=== PATIENT | female | born 1950 | race Caucasian/White ===

== ENCOUNTER 2017-11-18 10:26 | Outpatient (POV) | payer MEDICARE, MEDICAID, SELFPAY | END 2017-11-18 11:23 | disposition home or self-care (01) | PROVIDERS: Visit Provider Podiatrist | DX: L60.1 Onycholysis (principal); M79.672 Pain in left foot; L84 Corns and callosities | CPT/HCPCS: 11056; 99212; G0127 ==

== ENCOUNTER → 2018-02-24 14:21 | Outpatient (CLI) | payer MEDICARE, MEDICAID, SELFPAY ==
--- NOTE | 2018-02-24 14:25 | US_ITS ---
US Arterial Ankle Brachial Ind ITS.REASON: skin changes, PVD, weak pulses, pain, right-sided pain and claudication ORDERING PHYSICIAN: Rachna Machuca DPM PATIENT AGE: 68 years TECHNIQUE: Segmental pressures obtained of both right and left leg. These are compared to brachial blood pressure to yield index at each level sampled including summary KATELYN. The data sheets from the procedure are available in PACS FINDINGS Rest study only performed today No prior studies available for comparison. Blood pressures reported are in millimeters mercury. RIGHT LEG KATELYN = 1.2. Right TBI 1.0 Brachial BP: 124 Thigh BP: 141 Calf BP: 149 Ankle PT: 156 Ankle DP : 166 Digit =130 LEFT LEG KATELYN = 1.1 Left TBI 0.9 Brachial BPD: 135 Thigh BP: 145 Calf BP: 153 Ankle PT:153 Ankle DP: 160 Digit = 126 Pulses and waveforms: Normal IMPRESSION: The ABIs as reported above are within normal limits. Waveforms and pulses are also unremarkable.
== END ==
PROVIDERS: PCP Internal Medicine Adolescent Medicine; Visit Provider Podiatrist
DX: R23.9 Unspecified skin changes (principal); I73.9 Peripheral vascular disease, unspecified
CPT/HCPCS: 93922

== ENCOUNTER → 2018-04-07 14:18 | Outpatient (POV) | payer MEDICARE, MEDICAID, SELFPAY ==
[2018-04-07 14:57] LABS: Microscopic, Urine URINE MICROSCOPIC (MICROSCOPIC)
[2018-04-07 15:12] LABS: Basophils # 0.1 K/mm3 (0-0.2); Basophils % 0.8 % (0.1-2.0); Eosinophils # 0.1 K/mm3 (0.0-0.4); Eosinophils % 1.4 % (0.1-12.0); Lymphocytes # 1.9 K/mm3 (0.7-4.5); Lymphocytes % 17.7 K/mm3 (10-50); Mean Corpuscular HGB Conc 32.1 g/dL (31.8-35.4); Mean Corpuscular Hemoglobin 28.3 pg (27.0-31.2); Mean Corpuscular Volume 88.2 fl (81-99); Mean Platelet Volume 7.8 fl (7.4-10.4); Monocytes # 0.7 K/mm3 (0.1-1.0); Monocytes % 6.8 % (1.7-9.3); Neutrophils # 7.7 K/mm3 (1.8-7.8); Neutrophils % 73.3 % (37.0-80.0); Platelet Count 352 K/mm3 (142-424); Red Blood Count 3.51 M/mm3 (4.20-5.40); Red Cell Distribution Width 14.5 % (11.5-17.5); White Blood Count 10.5 K/mm3 (4.8-10.8)
[2018-04-07 15:30] LABS: Appearance,Urine CLEAR (Clear); Bilirubin,Urine Negative (Negative); Blood, Urine 1+ (Negative); Color,Urine YELLOW (Yellow); Glucose,Urine (UA) Negative (Negative); Ketones,Urine Negative (Negative); Leukocyte Esterase,Urine Negative (Negative); Nitrate,Urine Negative (Negative); PH,Urine 5.5 (5.0-8.5); Protein,Urine 3+ (Negative); Specific Gravity, Urine 1.025 (1.005-1.030); Urobilinogen,Urine 0.2 EU/dl (0.2)
[2018-04-07 16:26] LABS: Bacteria,Urine Trace /lpf; Squamous Epithelial Cell,Urine Occasional #/hpf (0-5)
[2018-04-07 16:44] LABS: Albumin Level 3.6 gm/dL (3.4-5.0); Anion Gap 6.4 mEq/L (5-15); Blood Urea Nitrogen 37 mg/dL (7-18); Calcium 9.4 mg/dL (8.5-10.1); Carbon Dioxide 26 mmol/L (21.0-32.0); Chloride 105 mmol/L (98-107); Creatinine,Serum 1.92 mg/dL (0.55-1.02); Estimated Glomerular Filt Rate 26 ml/min (>60); GFR (African American) 31 ML/MIN (>60); Glucose 92 mg/dL (74-106); Phosphorous 4.9 mg/dL (2.4-4.9); Potassium 4.4 mmoL/L (3.5-5.1); Sodium 133 mmol/L (136-145)
[2018-04-07 18:46] LABS: Creatinine,Urine Random 59 mg/dL (20-320)
[2018-04-07 19:01] LABS: Total Protein,Urine Random 337.3 mg/dL (0.0-11.9)
== END ==
PROVIDERS: PCP Internal Medicine Adolescent Medicine; Visit Provider Internal Medicine Nephrology
DX: N18.3 Chronic kidney disease, stage 3 (moderate) (principal)
CPT/HCPCS: 36415; 80069; 81001; 82570; 84155; 85025

== ENCOUNTER → 2018-05-07 09:38 | Outpatient (CLI) | payer MEDICARE, MEDICAID, SELFPAY ==
--- NOTE | 2018-05-07 09:40 | MM_ITS ---
MM Dig screening mamm BI w/CAD CAD Screening ORDERING PHYSICIAN : Liliana Gar PATIENT AGE: 68 years GENDER: Female HISTORY. No hormones. No new complaints. Family history. Mother with breast cancer in her 70s. & Sister at unknown age COMPARISON: Previous mammograms: September outside study.: TECHNIQUE: Standard CC and MLO images were obtained. R2 CAD reviewed. FINDINGS: Moderately dense asymmetric breast, moderate residual glandular elements bilaterally RIGHT BREAST:Fairly Stable nodular density at the medial right breast with minimal calcification. Likely small fibroadenoma 6 mm size. X 10 mm height present since 2009 Metallic marker at deep central right breast from previous percutaneous biopsy elsewhere . LEFT BREAST:Somewhat asymmetric dense tissue at the lateral retroareolar region. This appears stable since prior studies with no significant new findings IMPRESSION: ......... No significant change. . Follow-up in one year recommended BI-RADS Category: 2 Benign Finding(s) RECOMMENDED FOLLOW-UP: 1YR - 1 YEAR FOLLOW-UP (A letter has been sent to the patient regarding results of the study.)
--- NOTE | 2018-05-07 09:41 | US_ITS ---
US breast RT complete INDICATION: Palpable abnormality in the presternal region ORDERING PHYSICIAN: Liliana Gar PATIENT AGE: 68 years COMPARISON: None TECHNIQUE: Standard images performed along with axilla FINDINGS: There is an 8 x 7 mm subcutaneous hypoechoic nodule in the presternal region. This is well-circumscribed but does contain low-level echoes with some enhanced through transmission of sound. No other significant anomalies evident. IMPRESSION: 8 x 7 mm hypoechoic subcutaneous lesion in the floor o'clock area of the right breast toward the sternum corresponding to the palpable abnormality probably benign. BI-RADS Category: 3 Benign Finding Short Term Follow-up RECOMMENDED FOLLOW-UP: 6M - 6 MONTH FOLLOW-UP (A letter has been sent to the patient regarding results of the study.)
== END ==
PROVIDERS: PCP Internal Medicine Adolescent Medicine; Visit Provider Nurse Practitioner Family
DX: Z12.31 Encounter for screening mammogram for malignant neoplasm of breast (principal); N60.01 Solitary cyst of right breast
CPT/HCPCS: 76641; 77067

== ENCOUNTER → 2018-11-03 08:44 | Outpatient (CLI) | payer MEDICARE, MEDICAID, SELFPAY ==
[2018-11-03 08:48] LABS: Microscopic, Urine URINE MICROSCOPIC (MICROSCOPIC)
[2018-11-03 09:12] LABS: Basophils # 0.1 K/mm3 (0-0.2); Eosinophils # 0.2 K/mm3 (0.0-0.4); Eosinophils % 1.9 % (0.1-12.0); Hematocrit 30.3 % (37.0-47.0); Hemoglobin 9.3 g/dL (12.2-16.2); Lymphocytes # 1.6 K/mm3 (0.7-4.5); Lymphocytes % 18.7 % (10-50); Mean Corpuscular HGB Conc 30.8 g/dL (31.8-35.4); Mean Corpuscular Hemoglobin 27.2 pg (27.0-31.2); Mean Corpuscular Volume 88.2 fl (81-99); Monocytes # 0.4 K/mm3 (0.1-1.0); Monocytes % 4.9 % (1.7-9.3); Neutrophils # 6.5 K/mm3 (1.8-7.8); Neutrophils % 73.5 % (37.0-80.0); Platelet Count 377 K/mm3 (142-424); Red Blood Count 3.44 M/mm3 (4.20-5.40); Red Cell Distribution Width 14.8 % (11.5-17.5); White Blood Count 8.8 K/mm3 (4.8-10.8)
[2018-11-03 09:49] LABS: Appearance,Urine CLOUDY (Clear); Bilirubin,Urine Negative (Negative); Blood, Urine 2+ (Negative); Color,Urine YELLOW (Yellow); Glucose,Urine (UA) Negative (Negative); Ketones,Urine Negative (Negative); Leukocyte Esterase,Urine 3+ (Negative); Nitrate,Urine Negative (Negative); PH,Urine 5.5 (5.0-8.5); Protein,Urine 2+ (Negative); Specific Gravity, Urine >= 1.030 (1.005-1.030); Urobilinogen,Urine 0.2 EU/dl (0.2)
[2018-11-03 10:08] LABS: Creatinine,Urine Random 147 mg/dL (20-320)
[2018-11-03 10:14] LABS: Total Protein,Urine Random 257.7 mg/dL (0.0-11.9)
[2018-11-03 10:31] LABS: Bacteria,Urine 4+ /lpf; WBC,Urine TNTC #/hpf (0-3)
[2018-11-03 11:06] LABS: Albumin Level 3.6 gm/dL (3.4-5.0); Anion Gap 20.9 mEq/L (5-15); Blood Urea Nitrogen 29 mg/dL (7-18); Calcium 8.9 mg/dL (8.5-10.1); Carbon Dioxide 19 mmol/L (21.0-32.0); Chloride 106 mmol/L (98-107); Creatinine,Serum 2.29 mg/dL (0.55-1.02); Estimated Glomerular Filt Rate 21 ml/min (>60); GFR (African American) 26 ML/MIN (>60); Glucose 90 mg/dL (74-106); Phosphorous 4.4 mg/dL (2.4-4.9); Potassium 3.9 mmoL/L (3.5-5.1); Sodium 142 mmol/L (136-145)
== END ==
PROVIDERS: Visit Provider Internal Medicine Nephrology
DX: N18.3 Chronic kidney disease, stage 3 (moderate) (principal); R82.90 Unspecified abnormal findings in urine
CPT/HCPCS: 36415; 80069; 81001; 82570; 84155; 85025; 87077; 87086; 87088; 87186

== ENCOUNTER → 2018-12-18 10:57 | Outpatient (CLI) | payer MEDICARE, MEDICAID, SELFPAY ==
[2018-12-18 11:31] LABS: Basophils # 0.1 K/mm3 (0-0.2); Basophils % 1.1 % (0.1-2.0); Eosinophils # 0.2 K/mm3 (0.0-0.4); Eosinophils % 2.7 % (0.1-12.0); Hematocrit 35.1 % (37.0-47.0); Hemoglobin 10.4 g/dL (12.2-16.2); Lymphocytes # 1.2 K/mm3 (0.7-4.5); Lymphocytes % 16.9 % (10-50); Mean Corpuscular HGB Conc 29.6 g/dL (31.8-35.4); Mean Corpuscular Hemoglobin 26.4 pg (27.0-31.2); Mean Platelet Volume 7.2 fl (7.4-10.4); Monocytes # 0.5 K/mm3 (0.1-1.0); Monocytes % 6.5 % (1.7-9.3); Neutrophils # 5.2 K/mm3 (1.8-7.8); Neutrophils % 72.9 % (37.0-80.0); Platelet Count 404 K/mm3 (142-424); Red Blood Count 3.94 M/mm3 (4.20-5.40); White Blood Count 7.2 K/mm3 (4.8-10.8)
[2018-12-18 11:56] LABS: Alanine Aminotransferase 31 U/L (12-78); Albumin Level 3.6 gm/dL (3.4-5.0); Albumin/Globulin Ratio 1.1 (1.1-1.8); Alkaline Phosphatase 186 U/L (46-116); Anion Gap 17.6 mEq/L (5-15); Aspartate Amino Transferase 25 U/L (15-37); Bilirubin,Total 0.3 mg/dL (0.2-1.0); Blood Urea Nitrogen 48 mg/dL (7-18); Calcium 8.8 mg/dL (8.5-10.1); Carbon Dioxide 23 mmol/L (21.0-32.0); Chloride 102 mmol/L (98-107); Creatinine,Serum 2.19 mg/dL (0.55-1.02); Estimated Glomerular Filt Rate 22 ml/min (>60); GFR (African American) 27 ML/MIN (>60); Globulin 3.2 gm/dl (1.3-3.2); Glucose 103 mg/dL (74-106); Potassium 4.6 mmoL/L (3.5-5.1); Sodium 138 mmol/L (136-145); Total Protein,Serum 6.8 gm/dL (6.4-8.2)
== END ==
PROVIDERS: Visit Provider Internal Medicine Rheumatology
DX: M32.10 Systemic lupus erythematosus, organ or system involvement unspecified (principal)
CPT/HCPCS: 36415; 80053; 85025

== ENCOUNTER → 2019-02-16 10:04 | Outpatient (CLI) | payer MEDICARE, MEDICAID, SELFPAY ==
--- NOTE | 2019-02-16 10:20 | US_ITS ---
US breast RT complete Ordering Physician: Winston Webster MD Patient Age: 69 years: Female HISTORY: ITS.REASON: ABN MAMM follow up derrmal or subcutaneous nodule/ cc TECHNIQUE. Ultrasound entire right breast including axillary survey ========= : RIGHT BREAST ULTRASOUND: We again see a debris-filled cyst/semisolid cyst subcutaneous hypoechoic nodule with internal echoes which corresponds to the palpable area right breast 4 o'clock position.. Some of these internal echoes may be reverberation artifact echoes given its extremely superficial roughly 1 mm beneath skin surface. However there is Good visualization of back wall enhancement & partial through transmission which is supportive of a debris-filled cyst This measures 8 mm length x 8 mm transverse x 5.1 mm mm AP on my measurements. It is slightly pearson, slightly plumper, than the previous ultrasound studies on visual inspection and measures incrementally larger.. I would note there is additional standoff gel which with slight improved ultrasound visualization & detail] differences in technique may yield a slightly larger measurements.. Of this is benign-appearing feature in by far most likely this is a sebaceous cyst like structure given that appears to be related to the dermal layer Suggest follow-up ultrasound along with bilateral mammogram 6 months to resume annual scheduled . If should it enlarge clinically, the should be fairly easy to excised clinically (Added note.: I now prior mammograms available from May 2018 as well as back to 2009 nodule appears to correspond showed in this area was likely present at that time. Further confirming its benign nature) No additional solid or cystic areas are seen within elsewhere within the breast itself Survey of the axilla demonstrates 2 benign appearing axillary lymph nodes. IMPRESSION: 1. Today's right breast ultrasound again reveals dermal/subcutaneous lesion; which is a semisolid or debris-filled cyst which corresponds with palpable area at 4 o'clock position o'clock area of the right..8 x 8mm x 5 mm Although appears & measures incrementally larger today than previous 2018 ultrasound,, I suspect this is due mainly due to differences of technique today.. Strongly favor benign entity most likely a cyst or sebaceous cyst type feature but would suggest follow-up ultrasound along with the patient's annual mammogram. (Added note.: I now see prior mammograms available from May 2018, 2016 & dating back to 2009 which showed an area which likely corresponds on prior mammograms-further supporting its long-standing benign nature) BI-RADS Category: 3 Benign Finding Short Term Follow-up RECOMMENDED FOLLOW-UP: 6M -8MONTH FOLLOW-UP Bilateral screening mammogram to resume annual schedule, along with follow-up right breast ultrasound at that time suggested (A letter has been sent to the patient regarding results of the study.)
--- NOTE | 2019-02-16 10:21 | XR_ITS ---
DEXA SCAN.-BONE DENSITY STUDY HIPS AND LUMBAR SPINE HISTORY: Postmenopausal female. History of lupus? History of prior fracture. Takes calcium, levothyroxin. Vitamin D. TECHNIQUE: DEXA scan hip and lumbar spine The most complete data summary and color graphic presentation of the today's ( and any prior ) DEXA findings are available in PACS. Definition and treatment guidelines included. comparison graph & calculations prior study not included despite request to the technologist COMPARISON: September 2015 DEXA LUMBAR SPINE: Overall osteopenia L3 vertebral body demonstrates the lowest T score -1.8 with BMD0.987 g/cm sq Also note L1 vertebra T score -1.6 with BMD 0.937 Today's Overall mean lumbar L1-L4 T score -1.2 with BMD1.032 g/cm sq . 2015 prior DEXA the mean L1-L4 T score -0.5 with BMD was1.125g/cm sq comparison graph & calculations prior study not included despite request to the technologist. However the previous L1-L4 age-matched Z score was +0.6 and is now -0.1 would does suggest slightly more pronounced bone loss than would be anticipated over this time. ===== HIPS: Femoral neck density is best predictor of hip fracture risk . Right femoral neck demonstrates the lowest T score -1.9 with BMD0.769 g/cm sq . Left femoral neck T score = -1.6 with BMD 0.811 Averaging all region included yields today's Hip Mean T score -1.2 with BMD0.853 g/cm sq . Prior 2014 DEXA T score -0.9 with mean BMD0.899 g/cm sq Previous age-matched Z score into 2014 = 0.0; where as today a Z score = -0.2.... Thus Basically expected only very slightly slightly greater bone loss than would be anticipated over this 3 year period IMPRESSION 1. LUMBAR SPINE: Overall lumbar T score = -1.2 reflecting overall mild osteopenia lumbar spine . Most evident osteopenia at L3 vertebra T score = -1.8 ... Also note L1 vertebral w/ T score -1.6. 2. HIPS: Overall hip density reflects mild Osteopenia. Overall hip T score -1.2. More evident Osteopenia Was Seen at femoral necks bilaterally:. Right femoral neck T score = -1.9;. Left femoral neck T score = -1.6 WHO criteria for post-menopausal, Women: Normal: T-score at or above -1 SD Osteopenia: T-score between -1 and -2.5 SD Osteoporosis: T-score at or below -2.5 SD
--- NOTE | 2019-02-16 11:41 | US_ITS ---
. US Arterial Ankle Brachial Ind HISTORY: Bilateral Leg rest pain . Hypertension. Hyperlipidemia. Claudication. Skin color changes. diabetic previous angioplasty smoker previously hypertension. TECHNIQUE: Segmental pressures obtained of both right and left leg. These are compared to brachial blood pressure to yield index at each level sampled including summary KATELYN. The data sheets from the procedure are available in PACS FINDINGS Rest study only performed today No prior studies available for comparison. Blood pressures reported are in millimeters mercury. ========= RIGHT LEG KATELYN = 1.1. Right TBI = 0.8 Brachial BP: 158 Thigh BP: 144, index 0.91 Calf BP: BP 171 with index 1.08 Ankle PT: BP 174 with index 1.1 Ankle DP : BP 180 with index 1.14 Digit =BP 119 with thin axial 0.75 ========= LEFT LEG KATELYN = 1.1 Left TBI = 0.7 Brachial BPD: 150 Thigh BP: BP 145 with the next 0.92 Calf BP: BP 173 with index 1.09 Ankle PT:BP 175 with index 1.11 Ankle DP: BP 170 over the next 1.08 Digit = BP 103 with index 0.65 Pulses and waveforms: Normal bilaterally. WaveformsVery slightly more robust on left leg than right ...... IMPRESSION:......... Pulses & waveforms within normal limits. RIGHT LEG KATELYN = 1.1. Right TBI = 0.8 LEFT LEG KATELYN = 1.1 Left TBI = 0.7
== END ==
PROVIDERS: PCP Internal Medicine Adolescent Medicine; Visit Provider Internal Medicine Adolescent Medicine
DX: Z13.820 Encounter for screening for osteoporosis (principal); Z78.0 Asymptomatic menopausal state; R92.8 Other abnormal and inconclusive findings on diagnostic imaging of breast; R09.89 Other specified symptoms and signs involving the circulatory and respiratory systems
CPT/HCPCS: 76641; 77080; 93922

== ENCOUNTER → 2019-03-16 13:56 | Outpatient (CLI) | payer MEDICARE, MEDICAID, SELFPAY ==
[2019-03-16 14:00] LABS: Microscopic, Urine URINE MICROSCOPIC (MICROSCOPIC)
[2019-03-16 14:13] LABS: Appearance,Urine SL CLOUDY (Clear); Bilirubin,Urine Negative (Negative); Blood, Urine 1+ (Negative); Color,Urine YELLOW (Yellow); Glucose,Urine (UA) Negative (Negative); Ketones,Urine Negative (Negative); Leukocyte Esterase,Urine TRACE (Negative); Nitrate,Urine Negative (Negative); PH,Urine 5.5 (5.0-8.5); Protein,Urine 2+ (Negative); Specific Gravity, Urine 1.025 (1.005-1.030); Urobilinogen,Urine 0.2 EU/dl (0.2)
[2019-03-16 14:30] LABS: Bacteria,Urine Trace /lpf; RBC,Urine Occasional #/hpf (0-3)
[2019-03-16 14:42] LABS: Basophils # 0.1 K/mm3 (0-0.2); Basophils % 1.6 % (0.1-2.0); Eosinophils # 0.1 K/mm3 (0.0-0.4); Eosinophils % 2.2 % (0.1-12.0); Hematocrit 30.3 % (37.0-47.0); Hemoglobin 9.4 g/dL (12.2-16.2); Lymphocytes # 1.2 K/mm3 (0.7-4.5); Lymphocytes % 22.2 % (10-50); Mean Corpuscular HGB Conc 31.2 g/dL (31.8-35.4); Mean Corpuscular Volume 86.4 fl (81-99); Mean Platelet Volume 7.1 fl (7.4-10.4); Monocytes # 0.4 K/mm3 (0.1-1.0); Monocytes % 6.6 % (1.7-9.3); Neutrophils # 3.5 K/mm3 (1.8-7.8); Neutrophils % 67.4 % (37.0-80.0); Platelet Count 376 K/mm3 (142-424); Red Cell Distribution Width 14.8 % (11.5-17.5); White Blood Count 5.3 K/mm3 (4.8-10.8)
[2019-03-16 14:43] LABS: Creatinine,Urine Random 65 mg/dL (20-320); Total Protein,Urine Random 134.5 mg/dL (0.0-11.9)
[2019-03-16 15:23] LABS: Albumin Level 3.7 gm/dL (3.4-5.0); Anion Gap 17.8 mEq/L (5-15); Blood Urea Nitrogen 52 mg/dL (7-18); Carbon Dioxide 20 mmol/L (21.0-32.0); Chloride 105 mmol/L (98-107); Creatinine,Serum 2.53 mg/dL (0.55-1.02); Estimated Glomerular Filt Rate 19 ml/min (>60); GFR (African American) 23 ML/MIN (>60); Glucose 95 mg/dL (74-106); Phosphorous 4.9 mg/dL (2.4-4.9); Potassium 4.8 mmoL/L (3.5-5.1); Sodium 138 mmol/L (136-145)
== END ==
PROVIDERS: Visit Provider Internal Medicine Nephrology
DX: N18.3 Chronic kidney disease, stage 3 (moderate) (principal); R82.90 Unspecified abnormal findings in urine
CPT/HCPCS: 36415; 80069; 81001; 82570; 84155; 85025; 87086

== ENCOUNTER → 2019-03-16 14:15 | Outpatient (POV) | payer MEDICARE, MEDICAID, SELFPAY | PROVIDERS: Visit Provider Internal Medicine Nephrology | DX: Z00.00 Encounter for general adult medical examination without abnormal findings (principal) ==

== ENCOUNTER → 2019-09-01 08:44 | Outpatient (POV) | payer MEDICARE, MEDICAID, SELFPAY ==
[2019-09-01 10:38] LABS: Microscopic, Urine URINE MICROSCOPIC (MICROSCOPIC)
[2019-09-01 11:17] LABS: Basophils # 0.1 K/mm3 (0-0.2); Eosinophils # 0.1 K/mm3 (0.0-0.4); Eosinophils % 1.6 % (0.1-12.0); Hematocrit 30.7 % (37.0-47.0); Hemoglobin 9.1 g/dL (12.2-16.2); Lymphocytes # 0.8 K/mm3 (0.7-4.5); Lymphocytes % 12.9 % (10-50); Mean Corpuscular HGB Conc 29.6 g/dL (31.8-35.4); Mean Corpuscular Hemoglobin 26.4 pg (27.0-31.2); Mean Corpuscular Volume 89.1 fl (81-99); Mean Platelet Volume 7.3 fl (7.4-10.4); Monocytes # 0.3 K/mm3 (0.1-1.0); Monocytes % 4.6 % (1.7-9.3); Neutrophils # 4.6 K/mm3 (1.8-7.8); Platelet Count 362 K/mm3 (142-424); Red Blood Count 3.44 M/mm3 (4.20-5.40); Red Cell Distribution Width 15.4 % (11.5-17.5); White Blood Count 5.8 K/mm3 (4.8-10.8)
[2019-09-01 11:19] LABS: Appearance,Urine CLOUDY (Clear); Bilirubin,Urine Negative (Negative); Blood, Urine 1+ (Negative); Color,Urine YELLOW (Yellow); Glucose,Urine (UA) Negative (Negative); Ketones,Urine Negative (Negative); Leukocyte Esterase,Urine 2+ (Negative); Nitrate,Urine Negative (Negative); PH,Urine 5.5 (5.0-8.5); Protein,Urine 2+ (Negative); Specific Gravity, Urine >= 1.030 (1.005-1.030); Urobilinogen,Urine 0.2 EU/dl (0.2)
[2019-09-01 11:35] LABS: Bacteria,Urine 3+ /lpf; WBC,Urine 50-100 #/hpf (0-3)
[2019-09-01 11:36] LABS: Albumin Level 3.6 gm/dL (3.4-5.0); Anion Gap 18.2 mEq/L (5-15); Blood Urea Nitrogen 32 mg/dL (7-18); Calcium 9.4 mg/dL (8.5-10.1); Carbon Dioxide 21 mmol/L (21.0-32.0); Chloride 106 mmol/L (98-107); Creatinine,Serum 2.19 mg/dL (0.55-1.02); Estimated Glomerular Filt Rate 22 ml/min (>60); GFR (African American) 27 ML/MIN (>60); Glucose 98 mg/dL (74-106); Potassium 4.2 mmoL/L (3.5-5.1); Sodium 141 mmol/L (136-145)
[2019-09-01 14:14] LABS: Creatinine,Urine Random 162 mg/dL (20-320)
[2019-09-02 16:46] LABS: Anti-DNA (DS) Ab Qn <1 IU/mL (0-9); Complement C3 153 mg/dL (82-167); Parathyroid Hormone Intact 36 pg/mL (15-65); Vitamin D 25 Hydroxy 42.4 ng/mL (30.0-100.0)
== END ==
PROVIDERS: Visit Provider Dermatology
DX: M32.9 Systemic lupus erythematosus, unspecified (principal); R82.90 Unspecified abnormal findings in urine
CPT/HCPCS: 36415; 80069; 81001; 82570; 82652; 83970; 84155; 85025; 86161; 86225; 87086; 87088; 87186

== ENCOUNTER → 2019-09-02 13:41 | Outpatient (POV) | payer MEDICARE, MEDICAID, SELFPAY | PROVIDERS: Visit Provider Internal Medicine Nephrology | DX: Z00.00 Encounter for general adult medical examination without abnormal findings (principal) ==

== ENCOUNTER → 2019-09-09 09:25 | Outpatient (CLI) | payer MEDICARE, MEDICAID, SELFPAY ==
[2019-09-09 10:06] LABS: Basophils # 0.1 K/mm3 (0-0.2); Eosinophils # 0.2 K/mm3 (0.0-0.4); Eosinophils % 2.7 % (0.1-12.0); Hematocrit 27.9 % (37.0-47.0); Hemoglobin 8.2 g/dL (12.2-16.2); Lymphocytes # 0.7 K/mm3 (0.7-4.5); Lymphocytes % 10.3 % (10-50); Mean Corpuscular HGB Conc 29.5 g/dL (31.8-35.4); Mean Corpuscular Hemoglobin 26.7 pg (27.0-31.2); Mean Corpuscular Volume 90.5 fl (81-99); Mean Platelet Volume 7.4 fl (7.4-10.4); Monocytes # 0.3 K/mm3 (0.1-1.0); Monocytes % 4.6 % (1.7-9.3); Neutrophils # 5.7 K/mm3 (1.8-7.8); Neutrophils % 81.5 % (37.0-80.0); Platelet Count 344 K/mm3 (142-424); Red Blood Count 3.09 M/mm3 (4.20-5.40); Red Cell Distribution Width 15.4 % (11.5-17.5)
[2019-09-09 11:12] LABS: Albumin Level 3.1 gm/dL (3.4-5.0); Anion Gap 17.7 mEq/L (5-15); Blood Urea Nitrogen 32 mg/dL (7-18); Calcium 8.3 mg/dL (8.5-10.1); Carbon Dioxide 19 mmol/L (21.0-32.0); Chloride 111 mmol/L (98-107); Creatinine,Serum 2.14 mg/dL (0.55-1.02); Estimated Glomerular Filt Rate 23 ml/min (>60); GFR (African American) 28 ML/MIN (>60); Glucose 100 mg/dL (74-106); Phosphorous 4.5 mg/dL (2.4-4.9); Potassium 3.7 mmoL/L (3.5-5.1); Sodium 144 mmol/L (136-145)
== END ==
PROVIDERS: Visit Provider Internal Medicine Nephrology
DX: N18.3 Chronic kidney disease, stage 3 (moderate) (principal)
CPT/HCPCS: 36415; 80069; 85025

== ENCOUNTER → 2019-12-14 08:25 | Outpatient (CLI) | payer MEDICARE, MEDICAID, SELFPAY ==
[2019-12-14 09:17] LABS: Basophils % 0.8 % (0.1-2.0); Eosinophils # 0.2 K/mm3 (0.0-0.4); Eosinophils % 4.2 % (0.1-12.0); Hematocrit 29.7 % (37.0-47.0); Hemoglobin 9.1 g/dL (12.2-16.2); Lymphocytes # 0.7 K/mm3 (0.7-4.5); Lymphocytes % 12.2 % (10-50); Mean Corpuscular HGB Conc 30.6 g/dL (31.8-35.4); Mean Corpuscular Hemoglobin 26.4 pg (27.0-31.2); Mean Platelet Volume 7.4 fl (7.4-10.4); Monocytes # 0.3 K/mm3 (0.1-1.0); Monocytes % 5.9 % (1.7-9.3); Neutrophils # 4.3 K/mm3 (1.8-7.8); Neutrophils % 76.9 % (37.0-80.0); Platelet Count 335 K/mm3 (142-424); Red Blood Count 3.45 M/mm3 (4.20-5.40); Red Cell Distribution Width 14.9 % (11.5-17.5); White Blood Count 5.6 K/mm3 (4.8-10.8)
[2019-12-14 10:03] LABS: Albumin Level 3.3 gm/dL (3.4-5.0); Anion Gap 15.7 mEq/L (5-15); Blood Urea Nitrogen 32 mg/dL (7-18); Calcium 8.5 mg/dL (8.5-10.1); Carbon Dioxide 22 mmol/L (21.0-32.0); Chloride 107 mmol/L (98-107); Creatinine,Serum 2.13 mg/dL (0.55-1.02); Estimated Glomerular Filt Rate 23 ml/min (>60); GFR (African American) 28 ML/MIN (>60); Glucose 96 mg/dL (74-106); Phosphorous 4.4 mg/dL (2.4-4.9); Potassium 3.7 mmoL/L (3.5-5.1); Sodium 141 mmol/L (136-145)
[2019-12-14 10:42] LABS: Creatinine,Urine Random 89 mg/dL (20-320); Total Protein,Urine Random 357.9 mg/dL (0.0-11.9)
[2019-12-16 07:39] LABS: Complement C3 181 mg/dL (82-167)
== END ==
PROVIDERS: Visit Provider Internal Medicine Nephrology
DX: N18.3 Chronic kidney disease, stage 3 (moderate) (principal)
CPT/HCPCS: 36415; 80069; 82570; 84155; 85025; 86161

== ENCOUNTER → 2019-12-30 12:53 | Outpatient (POV) | payer MEDICARE, MEDICAID, SELFPAY | PROVIDERS: Visit Provider Internal Medicine Nephrology | DX: Z00.00 Encounter for general adult medical examination without abnormal findings (principal) ==

== ENCOUNTER → 2020-03-29 12:00 | Outpatient (CLI) | payer MEDICARE, MEDICAID, SELFPAY ==
[2020-03-29 14:22] LABS: Basophils # 0.1 K/mm3 (0-0.2); Basophils % 1.2 % (0.1-2.0); Eosinophils # 0.2 K/mm3 (0.0-0.4); Eosinophils % 2.3 % (0.1-12.0); Hematocrit 31.4 % (37.0-47.0); Hemoglobin 9.7 g/dL (12.2-16.2); Lymphocytes # 0.7 K/mm3 (0.7-4.5); Lymphocytes % 7.6 % (10-50); Mean Corpuscular HGB Conc 30.8 g/dL (31.8-35.4); Mean Corpuscular Hemoglobin 25.7 pg (27.0-31.2); Mean Corpuscular Volume 83.5 fl (81-99); Mean Platelet Volume 8.7 fl (7.4-10.4); Monocytes # 0.4 K/mm3 (0.1-1.0); Monocytes % 4.4 % (1.7-9.3); Neutrophils # 8.3 K/mm3 (1.8-7.8); Neutrophils % 84.4 % (37.0-80.0); Platelet Count 576 K/mm3 (142-424); Red Blood Count 3.77 M/mm3 (4.20-5.40); Red Cell Distribution Width 14.7 % (11.5-17.5); White Blood Count 9.8 K/mm3 (4.8-10.8)
[2020-03-29 15:54] LABS: Chloride 109 mmol/L (98-107); Sodium 139 mmol/L (136-145)
[2020-03-29 15:57] LABS: Alanine Aminotransferase 11 U/L (12-78); Albumin Level 3.9 g/dl (3.5-5.0); Albumin/Globulin Ratio 1.4 (1.1-1.8); Alkaline Phosphatase 298 U/L (38-126); Anion Gap 27.7 mEq/L (5-15); Aspartate Amino Transferase 21 U/L (14-36); Bilirubin,Total 0.3 mg/dl (0.2-1.3); Calcium 10.2 mg/dl (8.4-10.2); Estimated Glomerular Filt Rate 6 ml/min (>60); GFR (African American) 8 ML/MIN (>60); Globulin 2.8 g/dL (1.3-3.2); Glucose 76 mg/dl (74-100); Total Protein,Serum 6.7 g/dl (6.3-8.2)
[2020-03-29 16:05] LABS: Potassium 6.7 mmoL/L (3.5-5.1)
[2020-03-29 16:06] LABS: Blood Urea Nitrogen 108 mg/dl (7-17); Carbon Dioxide 9 mmol/L (22.0-30.0)
[2020-04-01 09:18] LABS: Vitamin B12 1242 pg/mL (232-1245); Vitamin D 25 Hydroxy 65.4 ng/mL (30.0-100.0)
== END ==
LOC: LAB.CARL 12:01 → LAB.DROPOF 03-30 07:28 → LAB.CARL 03-30 09:02
PROVIDERS: Visit Provider Internal Medicine Adolescent Medicine
DX: M32.14 Glomerular disease in systemic lupus erythematosus (principal); Z79.899 Other long term (current) drug therapy
CPT/HCPCS: 80053; 82607; 82652; 84443; 85025

== ENCOUNTER 2020-03-29 13:10 | Emergency (ER) | payer MEDICARE, MEDICAID, SELFPAY ==
[2020-03-29] VITALS (9 sets, daily range): BP systolic 75–143; BP diastolic 52–85; PULSE 87–96; RESP 20–24; TEMP 36.1–36.9; O2SAT 92–100; BMI 32.4
--- NOTE | 2020-03-29 13:06 | ECG_ITS ---
APPROVED REPORT Exam: Resting ECG HR:103 bpm ECG Measurements Heart Rate 103 AXES NY P 60 QRSd 90 QRS -14 QT 410 T 183 QTc 537 <Conclusion> Undetermined rhythm Marked ST abnormality, possible lateral subendocardial injury Abnormal ECG Electronically signed by : Winston Webster, 03/30/2020 16:47:58
--- NOTE | 2020-03-29 13:19 | XR_ITS ---
PROCEDURE: XR CHEST PORTABLE CLINICAL HISTORY: soa COMPARISON: CXR CHEST(2 VIEWS-NOT PORTABLE) from 06/20/2017 CXR CHEST(2 VIEWS-NOT PORTABLE) from 09/24/2017 CT CHEST WO CON from 03/29/2020 FINDINGS: Mild cardiomegaly without failure. Postsurgical changes are present in the right perihilar region. There is elevated right hemidiaphragm with infiltrate in the right lung base along with right lower lobe volume loss. Left lung is clear. No acute bony abnormalities. IMPRESSION: Postsurgical changes with right lower lobe infiltrate and right lung base volume loss Dictated by: Carlos Ruggiero MD 03/29/2020 14:28 Electronically signed by Carlos Ruggiero MD in [place] 03/29/2020 14:28
--- NOTE | 2020-03-29 13:21 | PC.NURSE ---
Multiple sores noted to coccyx and buttocks when pt was examined.
[2020-03-29 13:28] LABS: Appearance,Urine CLOUDY (Clear); Blood, Urine 3+ (Negative); Color,Urine YELLOW (Yellow); Glucose,Urine (UA) Negative (Negative); Ketones,Urine Negative (Negative); Leukocyte Esterase,Urine 2+ (Negative); Microscopic, Urine URINE MICROSCOPIC (MICROSCOPIC); Nitrate,Urine Negative (Negative); Protein,Urine 2+ (Negative); Specific Gravity, Urine >= 1.030 (1.005-1.030); Urobilinogen,Urine 0.2 EU/dl (0.2)
[2020-03-29 13:31] LABS: Bilirubin,Urine Negative (Negative)
[2020-03-29 13:32] LABS: Alanine Aminotransferase 16 U/L (12-78); Albumin Level 4.2 g/dl (3.5-5.0); Albumin/Globulin Ratio 1.2 (1.1-1.8); Alkaline Phosphatase 305 U/L (38-126); Anion Gap 23.9 mEq/L (5-15); Aspartate Amino Transferase 23 U/L (14-36); Bacteria,Urine 3+ /lpf; Basophils # 0.1 K/mm3 (0-0.2); Basophils % 1.1 % (0.1-2.0); Bilirubin,Total 0.3 mg/dl (0.2-1.3); Calcium 10.1 mg/dl (8.4-10.2); Chloride 110 mmol/L (98-107); Creatinine Clearance Estimated 9 mL/min (50-200); Eosinophils # 0.2 K/mm3 (0.0-0.4); Eosinophils % 1.6 % (0.1-12.0); Estimated Glomerular Filt Rate 6 ml/min (>60); GFR (African American) 7 ML/MIN (>60); Globulin 3.6 g/dL (1.3-3.2); Glucose 110 mg/dl (74-100); Hematocrit 31.5 % (37.0-47.0); Hemoglobin 9.8 g/dL (12.2-16.2); Lymphocytes # 1.1 K/mm3 (0.7-4.5); Lymphocytes % 8.7 % (10-50); Mean Corpuscular HGB Conc 31.3 g/dL (31.8-35.4); Mean Corpuscular Hemoglobin 26.3 pg (27.0-31.2); Mean Corpuscular Volume 84.1 fl (81-99); Mean Platelet Volume 8.2 fl (7.4-10.4); Monocytes # 0.5 K/mm3 (0.1-1.0); Monocytes % 3.9 % (1.7-9.3); Mucus,Urine 1+ /lpf; Neutrophils # 10.7 K/mm3 (1.8-7.8); Neutrophils % 84.6 % (37.0-80.0); Platelet Count 607 K/mm3 (142-424); Potassium 5.9 mmoL/L (3.5-5.1); Red Blood Count 3.74 M/mm3 (4.20-5.40); Red Cell Distribution Width 14.7 % (11.5-17.5); Sodium 136 mmol/L (136-145); Squamous Epithelial Cell,Urine Occasional #/hpf (0-5); Total Protein,Serum 7.8 g/dl (6.3-8.2); WBC,Urine TNTC #/hpf (0-3); White Blood Count 12.6 K/mm3 (4.8-10.8)
[2020-03-29 13:35] LABS: Lactic Acid 1.3 mmol/L (0.7-2.1)
[2020-03-29 13:36] LABS: Blood Urea Nitrogen 110 mg/dl (7-17); Carbon Dioxide 8 mmol/L (22.0-30.0)
[2020-03-29 13:37] LABS: C-Reactive Protein 64.1 mg/L (0-4)
--- NOTE | 2020-03-29 13:37 | CT_ITS ---
PROCEDURE: CT CHEST WO CON CLINICAL INDICATION: shortness of breath Shortness of breath, cough COMPARISON: XR CHEST PORTABLE from 03/29/2020 TECHNIQUE: Axial images obtained with sagittal and coronal reformats. All CT scans at the facility use one or more dose reduction, viz: automated exposure control, ma/kV adjustment per patient size (including targeted exams where dose is matched to indication, i.e. head), or iterative reconstruction technique. The FINDINGS: HEART AND MEDIASTINAL STRUCTURES: No mediastinal or hilar mass is evident. Coronary artery calcifications are present. There are few small mediastinal lymph nodes. LUNGS AND PLEURAL SPACES: There is dense consolidation involving the right lower lobe with peripheral air bronchograms. No significant effusion. There are surgical clips in the right perihilar region in there is elevation of the right hemidiaphragm. Small irregular parenchymal opacity is present in the left upper lobe possibly due to scarring at 6 mm. There is some fibrotic change in the left lower lobe BONY STRUCTURES: There is thoracic scoliosis convex right with multilevel degenerative changes. UPPER ABDOMEN: Right hemidiaphragm is elevated. The gallbladder is somewhat distended. Left adrenal gland is slightly prominent. Curvilinear calcification is present in the right renal pelvis and may represent a renal artery aneurysm measuring 10 mm. ADDITIONAL FINDINGS: No other significant abnormalities. IMPRESSION: 1. There is dense consolidation with peripheral air bronchograms in the right lower lobe consistent with pneumonia. Suggest following till clear 2. There postsurgical changes in the right perihilar region with clips noted in that area and some fibrotic changes noted in the right upper lobe and left upper lobe.. Recommend six-month follow-up to confirm stability of these areas of nodularity 3. Elevated right hemidiaphragm with mildly distended gallbladder. 4. 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
--- NOTE | 2020-03-29 13:40 | PC.NURSE ---
Pt to CT at this time
[2020-03-29 13:42] LABS: Strep Scrn Group A (Rapid) Negative (Negative)
[2020-03-29 13:46] LABS: Troponin I < 0.01 ng/ml (0.00-0.034)
[2020-03-29 13:55] LABS: ABG Base Excess -22.1 mmol/L (-2.4-2.3); ABG HCO3 7.2 mmhg (22.0-26.0); ABG Oxygen Saturation 95 % (90-100); ABG PCO2 22.9 mmhg (35.0-45.0); ABG PO2 87.1 mmhg (80-100); ABG TCO2 7.9 mmhg (23-27)
[2020-03-29 13:56] LABS: Allen's Test Acceptable; Oxygen ROOM AIR %; Source Left Radial
[2020-03-29 13:58] LABS: ABG PH 7.12 mmol/L (7.35-7.45)
--- NOTE | 2020-03-29 13:59 | PC.NURSE ---
notified of critical results.
[2020-03-29 14:03] LABS: Erythrocyte Sedimentation Rate > 140 mm/hr (0-30)
--- NOTE | 2020-03-29 14:11 | PC.NURSE ---
Updated pt Granddaughter on POC
--- NOTE | 2020-03-29 14:47 | PC.NURSE ---
paged [facility] awaiting call from hospitalist Dr Hooper.
--- NOTE | 2020-03-29 14:52 | PC.NURSE ---
Dr Nye speaking with Dr Hooper at [facility]
--- NOTE | 2020-03-29 15:19 | PC.NURSE ---
contacted [facility] for transport on pt. staff states they are going to check weather and flight status and then call back requested transport be put on standby as we are waiting on a bed assignment for pt.
--- NOTE | 2020-03-29 15:20 | PC.NURSE ---
notified of pt status and stated to start pt on levophed
--- NOTE | 2020-03-29 15:22 | PC.NURSE ---
[facility] accepted flight , to call them back when bed assignment.
--- NOTE | 2020-03-29 15:32 | PC.NURSE ---
speaking Dr Sutton from [facility]
--- NOTE | 2020-03-29 15:41 | [facility].EDSOB ---
ED Disposition Clinical Impression: Community acquired pneumonia, COVID-19 ruled out, Sepsis associated hypotension, Renal failure, UTI (urinary tract infection) Disposition: Xfer Short-Term Hosp Condition on Discharge: Serious Additional Instructions: Patient was excepting of her second tacky for admission patient be going to the COVID unit in the ICU. Referrals: Provider,Referral, [Primary Care Provider] - Forms: Transfer Record - ED - Critical Care Critical Care Time: Yes (Critical care Time included patient blood pressure dropped she became unsta) Attestation: On 03/29/20, the high probability of a clinically significant, sudden or life threatening deterioration of the following system(s) required my full and direct attention, intervention and personal management. The time I documented below is in addition to time spent performing reported procedures but includes the following listed in this critical care notation. Total Critical Care Time: 55 Vital system(s) involved:: Circulatory Failure, Renal Failure, Shock (Septic) My critical care processes included: Assessment & monitoring of V/S, Initial and Re-exams, Data Review/Interpretation, Coordinating Care, Medication Orders and management, Documentation Medical Decision Making - Medical Records Medical records reviewed: Yes: I reviewed the patient's medical records. - Edmund Inquiry Pt receiving controlled substance: No Vital Signs: 03/29/20 13:11 03/29/20 14:46 03/29/20 15:00 Temperature 98.5 F 97 F L Temperature Source Rectal Rectal Pulse Rate [Radial] 88 87 89 Respiratory Rate 22 20 22 Blood Pressure [Right Arm] 110/69 143/75 H 138/64 Blood Pressure Mean [Right Arm] 82 97 88 Blood Pressure Source [Right Arm] Automatic Cuff Blood Pressure Position [Right Arm] Sitting 02 Sat by Pulse Oximetry 92 L 95 100 Oxygen Delivery Method Nasal Cannula Room Air Nasal Cannula Oxygen Flow Rate (LPM) 2 2 03/29/20 15:20 03/29/20 15:25 Temperature Temperature Source Pulse Rate [Radial] 96 H Respiratory Rate 24 Blood Pressure [Right Arm] 76/56 L 75/52 L Blood Pressure Mean [Right Arm] 62 59 Blood Pressure Source [Right Arm] Manual Cuff/ Auscultation Blood Pressure Position [Right Arm] 02 Sat by Pulse Oximetry 100 Oxygen Delivery Method Nasal Cannula Oxygen Flow Rate (LPM) 2 - Lab Data Lab results reviewed: Yes: I reviewed the patient's lab results. Lab Results 03/29/20 13:15: Urine Color Yellow, Urine Appearance Cloudy, Urine pH 6.0, Ur Specific [place] >= 1.030, Urine Protein 2+, Urine Glucose (UA) Negative, Urine Ketones Negative, Urine Blood 3+, Urine Nitrate Negative, Urine Bilirubin Negative, Urine Urobilinogen 0.2, Ur Leukocyte Esterase 2+ A, Urine RBC 10-20, Urine WBC Tntc, Ur Squamous Epith Cells Occasional, Urine Bacteria 3+, Urine Mucus 1+ 03/29/20 13:15: WBC 12.6 H D, RBC 3.74 L, Hgb 9.8 L, Hct 31.5 L, MCV 84.1, MCH 26.3 L, MCHC 31.3 L, RDW 14.7, Plt Count 607 H, MPV 8.2, Neut % (Auto) 84.6 H, Lymph % (Auto) 8.7 L, [place] % (Auto) 3.9, Eos % (Auto) 1.6, Baso % (Auto) 1.1, Neut # (Auto) 10.7 H, Lymph # (Auto) 1.1, [place] # (Auto) 0.5, Eos # (Auto) 0.2, Baso # (Auto) 0.1, ESR > 140 H 03/29/20 13:15: Sodium 136, Potassium 5.9 H, Chloride 110 H, Carbon Dioxide 8 L*, Anion Gap 23.9 H, BUN 110 H*, Creatinine 7.00 H, Estimated Creat Clear 9, Estimated GFR 6 L*, Est GFR ( Amer) 7 L*, Glucose 110 H, Calcium 10.1, Total Bilirubin 0.3, AST 23, ALT 16, Alkaline Phosphatase 305 H, Troponin I < 0.01, C-Reactive Protein 64.1 H, Total Protein 7.8, Albumin 4.2, Globulin 3.6 H, Albumin/Globulin Ratio 1.2 03/29/20 13:15: Lactate 1.3 03/29/20 13:15: Influenza Type A Ag Negative, Influenza Type B Ag Negative 03/29/20 13:15: Group A Strep Rapid Negative 03/29/20 13:52: Specimen Source Left radial, O2 % Room air, ABG pH 7.12 L*, ABG pCO2 22.9 L, ABG pO2 87.1, ABG HCO3 7.2 L, ABG Total CO2 7.9 L, ABG O2 Saturation 95, ABG Base Excess -22.1 L, Carlos Test Acceptab
--- NOTE | 2020-03-29 15:45 | PC.NURSE ---
Levophed titrated to 7
--- NOTE | 2020-03-29 15:48 | PC.NURSE ---
Attempted to call report to [facility] ICU, stated he was busy and would call me back
--- NOTE | 2020-03-29 16:44 | PC.NURSE ---
pt left at this time with [facility]
--- NOTE | 2020-03-30 23:21 | PC.NURSE ---
called and spoke with deep holloway on the 10th floor icu at [facility]; received fax number [phone] and transmitted blood culture results for positive cultures to the unit.
== END 2020-03-29 16:46 | disposition short-term general hospital (02) ==
PROVIDERS: Emergency Provider Family Medicine
DX: J18.9 Pneumonia, unspecified organism (principal); A41.9 Sepsis, unspecified organism; I95.9 Hypotension, unspecified; N30.00 Acute cystitis without hematuria; N19 Unspecified kidney failure; Z91.040 Latex allergy status; K21.9 Gastro-esophageal reflux disease without esophagitis; I10 Essential (primary) hypertension; E78.5 Hyperlipidemia, unspecified; Z88.5 Allergy status to narcotic agent; Z79.899 Other long term (current) drug therapy
CPT/HCPCS: 71045; 71250; 80053; 81001; 82607; 82652; 82803; 83605; 84443; 84484; 85025; 85651; 86140; 87040; 87077; 87086; 87088; 87186; 87275; 87276; 87430; 93005; 96365; 96366; 96367; 99285; J0456; J3370

== ENCOUNTER 2020-05-31 20:12 | Observation (INO) | payer MEDICARE, MEDICAID, SELFPAY ==
[2020-05-31] VITALS (8 sets, daily range): BP systolic 145–178; BP diastolic 78–88; PULSE 72–92; RESP 16–18; TEMP 36.6; O2SAT 94–98; BMI 31.2
--- NOTE | 2020-05-31 20:20 | ECG_ITS ---
APPROVED REPORT Exam: Resting ECG HR:88 bpm ECG Measurements Heart Rate 88 AXES CO 172 P 45 QRSd 86 QRS -18 QT 430 T 102 QTc 520 <Conclusion> Normal sinus rhythm Nonspecific T wave abnormality Prolonged QT Abnormal ECG Electronically signed by : Winston Webster, 06/06/2020 17:16:26
[2020-05-31 20:31] LABS: Chloride 102 mmol/L (98-107); Potassium 3.3 mmoL/L (3.5-5.1); Sodium 137 mmol/L (136-145)
[2020-05-31 20:33] LABS: Blood Urea Nitrogen 40 mg/dl (7-17); Creatinine Clearance Estimated 19 mL/min (50-200); Estimated Glomerular Filt Rate 15 ml/min (>60); GFR (African American) 18 ML/MIN (>60)
[2020-05-31 20:34] LABS: Alanine Aminotransferase 9 U/L (12-78); Albumin Level 3.8 g/dl (3.5-5.0); Albumin/Globulin Ratio 1.4 (1.1-1.8); Alkaline Phosphatase 74 U/L (38-126); Amylase 88 U/L (30-110); Anion Gap 11.3 mEq/L (5-15); Aspartate Amino Transferase 22 U/L (14-36); Bilirubin,Total 0.4 mg/dl (0.2-1.3); Calcium 8.9 mg/dl (8.4-10.2); Carbon Dioxide 27 mmol/L (22.0-30.0); Globulin 2.7 g/dL (1.3-3.2); Glucose 141 mg/dl (74-100); Lipase 79 U/L (23-300); Total Protein,Serum 6.5 g/dl (6.3-8.2)
[2020-05-31 20:37] LABS: Basophils % 0.7 % (0.1-2.0); Eosinophils # 0.1 K/mm3 (0.0-0.4); Hematocrit 27.2 % (37.0-47.0); Lymphocytes # 1.1 K/mm3 (0.7-4.5); Lymphocytes % 17.7 % (10-50); Mean Corpuscular HGB Conc 33.1 g/dL (31.8-35.4); Mean Corpuscular Hemoglobin 28.5 pg (27.0-31.2); Mean Platelet Volume 7.7 fl (7.4-10.4); Monocytes # 0.5 K/mm3 (0.1-1.0); Monocytes % 7.9 % (1.7-9.3); Neutrophils # 4.3 K/mm3 (1.8-7.8); Neutrophils % 71.7 % (37.0-80.0); Platelet Count 265 K/mm3 (142-424); Red Blood Count 3.16 M/mm3 (4.20-5.40); Red Cell Distribution Width 14.7 % (11.5-17.5)
--- NOTE | 2020-05-31 20:43 | CT_ITS ---
PROCEDURE: CT ABDOMEN PELVIS WO CON CLINICAL INDICATION: vomiting vomiting, abdominal pain TECHNIQUE: Axial images obtained with sagittal and coronal reformats. All CT scans at the facility use one or more dose reduction, viz: automated exposure control, ma/kV adjustment per patient size (including targeted exams where dose is matched to indication, i.e. head), or iterative reconstruction technique. FINDINGS: LOWER THORAX: Atelectatic or fibrotic changes in the lung bases with elevated right hemidiaphragm and postsurgical changes on the right ABDOMEN & PELVIS: Coronary artery calcifications. Mild cardiomegaly. The liver, spleen, pancreas have an unremarkable appearance. There is mildly prominent bilateral adrenal glands. There is a 1 cm right renal artery aneurysm noted in the hilum of the right kidney with minimal ectasia of the right renal collecting system. Small umbilical hernia containing fat. No intestinal obstruction, free air, no evidence of appendicitis. There is colonic diverticulosis with no evidence of diverticulitis. There is mild thickening of the colon throughout which could be due to nondistention or mild colitis there are post hysterectomy changes. Degenerative changes lumbar spine and thoracic spine and hips. Thoracic scoliosis convex right with lumbar scoliosis convex left IMPRESSION: 1. Diverticulosis coli. 2. Mildly thickened colon which could be due to nondistention or mild colitis. 3. Right renal artery aneurysm Dictated by: Carlos Ruggiero MD 06/01/2020 09:04 Electronically signed by Carlos Ruggiero MD in [place] 06/01/2020 09:04
--- NOTE | 2020-05-31 20:48 | PC.NURSE ---
pt to ct via stretcher per rad staff
[2020-05-31 20:49] LABS: Troponin I 0.02 ng/ml (0.00-0.034)
--- NOTE | 2020-05-31 21:05 | HMH.EDNVD ---
ED Disposition Clinical Impression: ELINA (acute kidney injury) Disposition: Admitted As Inpatient Condition on Discharge: Good - Critical Care Critical Care Time: No Attestation: On 05/31/20, the high probability of a clinically significant, sudden or life threatening deterioration of the following system(s) required my full and direct attention, intervention and personal management. The time I documented below is in addition to time spent performing reported procedures but includes the following listed in this critical care notation. Medical Decision Making - Medical Records Medical records reviewed: Yes: I reviewed the patient's medical records. - Edmund Inquiry Pt receiving controlled substance: No Vital Signs: 05/31/20 20:12 05/31/20 20:36 05/31/20 21:10 Temperature 97.8 F Temperature Source Oral Pulse Rate [Left Radial] 72 87 85 Respiratory Rate 16 18 16 Blood Pressure [Right Arm] 160/80 H 145/86 H 178/88 H Blood Pressure Mean [Right Arm] 106 105 118 Blood Pressure Source [Right Arm] Automatic Cuff Blood Pressure Position [Right Arm] Sitting 02 Sat by Pulse Oximetry 94 L 98 95 Oxygen Delivery Method Room Air Room Air Room Air Oxygen Flow Rate (LPM) 05/31/20 21:46 05/31/20 22:07 05/31/20 22:42 Temperature Temperature Source Pulse Rate [Left Radial] 85 89 82 Respiratory Rate 18 18 18 Blood Pressure [Right Arm] 157/78 H 156/85 H 158/79 H Blood Pressure Mean [Right Arm] 104 108 105 Blood Pressure Source [Right Arm] Blood Pressure Position [Right Arm] 02 Sat by Pulse Oximetry 97 97 96 Oxygen Delivery Method Nasal Cannula Room Air Nasal Cannula Oxygen Flow Rate (LPM) 2 2 05/31/20 23:05 Temperature Temperature Source Pulse Rate [Left Radial] 92 H Respiratory Rate 18 Blood Pressure [Right Arm] 163/85 H Blood Pressure Mean [Right Arm] 111 Blood Pressure Source [Right Arm] Blood Pressure Position [Right Arm] 02 Sat by Pulse Oximetry 97 Oxygen Delivery Method Nasal Cannula Oxygen Flow Rate (LPM) 2 - Lab Data Lab results reviewed: Yes: I reviewed the patient's lab results. Lab Results 05/31/20 20:12: Troponin I 0.02, Amylase 88, Lipase 79 05/31/20 20:12: WBC 6.0, RBC 3.16 L, Hgb 9.0 L, Hct 27.2 L, MCV 86.0, MCH 28.5, MCHC 33.1, RDW 14.7, Plt Count 265, MPV 7.7, Neut % (Auto) 71.7, Lymph % (Auto) 17.7, [place] % (Auto) 7.9, Eos % (Auto) 2.0, Baso % (Auto) 0.7, Neut # (Auto) 4.3, Lymph # (Auto) 1.1, [place] # (Auto) 0.5, Eos # (Auto) 0.1, Baso # (Auto) 0.0 05/31/20 20:12: Sodium 137, Potassium 3.3 L, Chloride 102, Carbon Dioxide 27, Anion Gap 11.3, BUN 40 H, Creatinine 3.10 H, Estimated Creat Clear 19, Estimated GFR 15 L*, Est GFR ( Amer) 18 L*, Glucose 141 H, Calcium 8.9, Total Bilirubin 0.4, AST 22, ALT 9 L, Alkaline Phosphatase 74, Total Protein 6.5, Albumin 3.8, Globulin 2.7, Albumin/Globulin Ratio 1.4 05/31/20 21:39: Urine Color Yellow, Urine Appearance Clear, Urine pH 7.0, Ur Specific [place] 1.020, Urine Protein 2+, Urine Glucose (UA) Negative, Urine Ketones Negative, Urine Blood Trace-i, Urine Nitrate Negative, Urine Bilirubin Negative, Urine Urobilinogen 0.2, Ur Leukocyte Esterase 1+ A, Urine WBC 3-5, Ur Squamous Epith Cells Occasional, Urine Bacteria 2+ Result diagrams: 05/31/20 20:12 05/31/20 20:12 Orders (Tests/Meds): ED MEDICATIONS Generic Name Dose Route Start Last Admin Trade Name Freq PRN Reason Stop Dose Admin Sodium Chloride 1,000 mls @ 999 mls/hr 05/31/20 20:30 05/31/20 20:36 Sod Chlor 0.9% 1000ml Bag IV 05/31/20 21:30 999 mls/hr .[id number] DEVON Administration Discontinued Medications Generic Name Dose Route Start Last Admin Trade Name Freq PRN Reason Stop Dose Admin Promethazine HCl 12.5 mg 05/31/20 20:34 05/31/20 20:35 Phenergan 25mg/Ml 1ml Vial IV 05/31/20 20:35 12.5 mg ONCE ONE Administration Sodium Chloride 25 ml 05/31/20 20:34 05/31/20 20:36 Sod Chlor 0.9% 25ml Bag IV 05/31/20 20:35 25 ml ONCE ONE Adm
--- NOTE | 2020-05-31 21:09 | PC.NURSE ---
pt back from rad at this time
[2020-05-31 21:44] LABS: Microscopic, Urine URINE MICROSCOPIC (MICROSCOPIC)
[2020-05-31 21:54] LABS: Appearance,Urine CLEAR (Clear); Bilirubin,Urine Negative (Negative); Blood, Urine TRACE-I (Negative); Color,Urine YELLOW (Yellow); Glucose,Urine (UA) Negative (Negative); Ketones,Urine Negative (Negative); Leukocyte Esterase,Urine 1+ (Negative); Nitrate,Urine Negative (Negative); Protein,Urine 2+ (Negative); Urobilinogen,Urine 0.2 EU/dl (0.2)
--- NOTE | 2020-05-31 22:00 | XR_ITS ---
PROCEDURE: XR CHEST PORTABLE CLINICAL HISTORY: vomiting COMPARISON: CXR CHEST(2 VIEWS-NOT PORTABLE) from 06/20/2017 CXR CHEST(2 VIEWS-NOT PORTABLE) from 09/24/2017 XR CHEST PORTABLE from 03/29/2020 CT CHEST WO CON from 03/29/2020 FINDINGS: Mild cardiomegaly without failure. Elevated right hemidiaphragm with suture and clips in the right lung base. There is increased density in the retrocardiac region which could be due to combination aortic ectasia/tortuosity and hiatal hernia. CT may confirm. Subacromial stenosis on the right IMPRESSION: No acute finding. Please see above for detail Dictated by: Carlos Ruggiero MD 06/01/2020 07:51 Electronically signed by Carlos Ruggiero MD in [place] 06/01/2020 07:51
[2020-05-31 22:09] LABS: Bacteria,Urine 2+ /lpf; Squamous Epithelial Cell,Urine Occasional #/hpf (0-5)
--- NOTE | 2020-05-31 23:39 | PC.NURSE ---
spoke with Dr. Webster about pt. pt being admitting. Darin stated he didnt want any antibiotic given till urine culture comes back.
[2020-05-31 23:53] LABS: Troponin I 0.03 ng/ml (0.00-0.034)
[2020-06-01] VITALS (7 sets, daily range): BP systolic 116–166; BP diastolic 46–82; PULSE 63–93; RESP 16–24; TEMP 36.7–37.1; O2SAT 90–96; BMI 29.7; BMI 30.8
--- NOTE | 2020-06-01 00:01 | PC.NURSE ---
PT ARRIVED TO THE FLOOR VIA STRETCHE FROM ED AT 0000.
[2020-06-01 03:31] LABS: Troponin I 0.03 ng/ml (0.00-0.034)
--- NOTE | 2020-06-01 04:51 | PC.NURSE ---
nurse was made aware of weight change
--- NOTE | 2020-06-01 06:14 | PC.NURSE ---
Pt is A&Ox4 and has slept on & off t/o this shift. Hollingsworth cath in place & draining clear ylw urine. Pt has vomited 1x, shortly after arriving to the floor. Emesis was very thick and still with very small amount of bile. Pt has denied any further N/V. Lungs CTA. Pt was placed on 2LPM O2 via NC d/t decreased sat post phenergan that pt received in the ER. While awake and talking pt sats 95-97% although during sleep decreased to 90%. Pt has been weaned to 0.5 LPM with current sat of 96%. NSR with occasional PVC. VSS, call light within reach, will continue to monitor.
[2020-06-01 06:46] LABS: Chloride 106 mmol/L (98-107); Potassium 3.6 mmoL/L (3.5-5.1); Sodium 138 mmol/L (136-145)
[2020-06-01 06:49] LABS: Anion Gap 9.6 mEq/L (5-15); Blood Urea Nitrogen 35 mg/dl (7-17); Calcium 8.6 mg/dl (8.4-10.2); Carbon Dioxide 26 mmol/L (22.0-30.0); Creatinine Clearance Estimated 21 mL/min (50-200); Estimated Glomerular Filt Rate 17 ml/min (>60); GFR (African American) 20 ML/MIN (>60); Glucose 105 mg/dl (74-100); Magnesium 1.9 mg/dl (1.6-2.3)
[2020-06-01 07:08] LABS: Basophils % 0.5 % (0.1-2.0); Eosinophils % 0.5 % (0.1-12.0); Hematocrit 25.6 % (37.0-47.0); Hemoglobin 8.1 g/dL (12.2-16.2); Lymphocytes # 0.9 K/mm3 (0.7-4.5); Lymphocytes % 16.8 % (10-50); Mean Corpuscular HGB Conc 31.6 g/dL (31.8-35.4); Mean Corpuscular Hemoglobin 27.8 pg (27.0-31.2); Mean Corpuscular Volume 87.9 fl (81-99); Monocytes # 0.4 K/mm3 (0.1-1.0); Monocytes % 7.3 % (1.7-9.3); Neutrophils # 4.1 K/mm3 (1.8-7.8); Neutrophils % 74.8 % (37.0-80.0); Platelet Count 240 K/mm3 (142-424); Red Blood Count 2.91 M/mm3 (4.20-5.40); Red Cell Distribution Width 14.8 % (11.5-17.5); White Blood Count 5.5 K/mm3 (4.8-10.8)
--- NOTE | 2020-06-01 07:25 | HMH.PHAVTE ---
[facility] VTE Monitoring - Patient Demographics Admission date: 06/01/20 Report Date: 06/01/20 Time: 07:25 Allergies/Adverse Reactions: Patient Allergies ANDREWS Inhibitors Allergy (Severe, Verified 05/31/20 20:24) Swelling of Lip/Tongue/Throat latex Allergy (Intermediate, Verified 05/31/20 20:24) Hives morphine Allergy (Intermediate, Verified 05/31/20 20:24) Hives Height: 1.52 m Weight: 71.299 kg Patient Problems: Current Active Problems ELINA (acute kidney injury) (Acute) - VTE Risk Labs: VTE Related Lab Results Hgb 8.1 g/dL (12.2-16.2) L 06/01/20 05:45 Hct 25.6 % (37.0-47.0) L 06/01/20 05:45 Plt Count 240 K/mm3 (142-424) 06/01/20 05:45 BUN 35 mg/dl (7-17) H 06/01/20 05:45 Creatinine 2.80 mg/dl (0.52-1.04) H 06/01/20 05:45 Estimated Creat Clear 21 mL/min (50-200) 06/01/20 05:45 VTE Score: 4 Clinical Trial Participant: No - Prophylaxis VTE Prophylaxis Ordered?: Yes Types of VTE Prophylaxis: TEDS Knee High
--- NOTE | 2020-06-01 08:44 | HMH.HP ---
*Admission Date: 06/01/20 *Chief complaint: Nausea, vomiting, acute kidney injury *History of present illness: 70-year-old white female with history of lupus, lupus nephritis, on chronic immunosuppressive medication who has frequent cystitis episodes and has significant peptic ulcer disease with frequent episodes of dyspepsia who ate supper last night and became nauseated and had a lot of vomiting. Became very lethargic, family reported some confusion, and she was brought to the emergency department. In the emergency department her confusion had cleared, but she felt very weak, and was noted to have acute kidney injury superimposed on her chronic kidney disease and therefore was admitted for IV fluids, and further evaluation. [facility] History I have reviewed the patient's past medical history: Yes Medical History: Reports:: Gastroesophageal Reflux Disease(GERD), Hyperlipidemia, Hypertension, Lung Disease Denies:: Asthma, Cancer, Chronic Obstructive Pulmonary Disease (COPD), Diabetes Mellitus Type 1, Diabetes Mellitus Type 2, Internal Pacemaker, Seizures *Have you ever received a pneumonia vaccine?: Yes *Have you received a flu vaccine this season?: Yes Other Medical History: Reports: Arthritis, Other. Denies: Blood Transfusion Reaction Other Surgeries: Yes: Hysterectomy-Total, Other. No: Pacemaker Amputation: No Fractures: Yes - *Social History Smoking Status: Never smoker # Packs/Day (cigarettes): 0 #Yrs smoked (if former smoker): 0 Alcohol Intake: never Alcohol Intake Frequency:: other Substance Use Type: denies use *Occupational Status:: retired Housing: house *Travel in the last 8 weeks: None Family Hx:: Cancer Review of Systems - Review of Systems Review of systems:: pertinent systems reviewed and negative unless documented below - *Neurologic Reports dizziness, Reports weakness, Denies localized weakness, Denies headache(s), Denies tingling/numbness/burning sensations Meds Home Medications Medication Instructions Recorded Confirmed Type levothyroxine 100 mcg tablet 100 mg PO DAILY 90 Days 02/17/18 06/01/20 History sucralfate 1 gram tablet 1 g PO ACHS 90 Days 02/17/18 06/01/20 History buspirone 10 mg tablet 10 mg PO DAILY 30 Days 06/09/18 06/01/20 History dexlansoprazole 60 mg 60 mg PO DAILY 90 Days #90 cap 05/11/19 06/01/20 Rx capsule,biphase delayed release cetirizine 10 mg capsule 10 mg PO DAILY cap 12/24/19 06/01/20 History hydroxychloroquine 200 mg tablet 200 mg PO DAILY tab 12/24/19 06/01/20 History Furosemide [Furosemide 20mg Tab] 20 mg PO DAILY 05/31/20 05/31/20 History Montelukast Sodium 10 mg PO PM 05/31/20 05/31/20 History Sodium Bicarbonate 650 mg PO TID 05/31/20 05/31/20 History carvediloL [Carvedilol 12.5mg Tab] 12.5 mg PO BID 05/31/20 06/01/20 History Doxepin HCl [Sinequan 10mg capsule] 10 mg PO HS 06/01/20 06/01/20 History Ferrous Sulfate [Ferrous Sulfate 325 mg PO BID 06/01/20 06/01/20 History 325mg Tablet] Hydralazine HCl [Hydralazine HCl 25 mg PO TID 06/01/20 06/01/20 History 25mg Tablet] Isosorbide Dinitrate [Isordil 10mg 10 mg PO TID 06/01/20 06/01/20 History tablet] Allergies Allergy/AdvReac Type Severity Reaction Status Date / Time ANDREWS Inhibitors Allergy Severe Swelling Verified 05/31/20 20:24 of Lip/Tongue/Throat latex Allergy Intermediate Hives Verified 05/31/20 20:24 morphine Allergy Intermediate Hives Verified 05/31/20 20:24 Exam Vital signs and Labs for Last 24 Hours: Temp Pulse Resp BP Pulse Ox 98.8 F 85 16 161/82 H 94 L 06/01/20 08:00 06/01/20 08:00 06/01/20 08:00 06/01/20 08:00 06/01/20 08:00 Laboratory Results - last 24 hr 05/31/20 20:12: Troponin I 0.02, Amylase 88, Lipase 79 05/31/20 20:12: WBC 6.0, RBC 3.16 L, Hgb 9.0 L, Hct 27.2 L, MCV 86.0, MCH 28.5, MCHC 33.1, RDW 14.7, Plt Count 265, MPV 7.7, Neut % (Auto) 71.7, Lymph % (Auto) 17.7, [place] % (Auto) 7.9, Eos % (Auto) 2.0, Baso % (Auto) 0.7, Neut # (Auto) 4.3, Lymph # (Auto) 1.1, Mo
--- NOTE | 2020-06-01 17:47 | PC.NURSE ---
During rounds this AM with Dr. Webster, the following was discontinued: tele, O2 and BP. Facial flushing noted @ 0730 that was gone by 1100. Pt complained of a mild MCDONALD, which resolved with prn Tylenol. She sat in the chair from [id number]. Requires a 1 person assist with a standard walker. Hollingsworth discontinued @ 1630. UOP cloudy yellow with mild sediment. Tolerates a low sodium diet. No n/v this shift. VSS. Remains A&Ox3.
--- NOTE | 2020-06-01 19:09 | PC.NURSE ---
report given to chase
--- NOTE | 2020-06-02 02:59 | PC.NURSE ---
A&OX4. pt lungs clear throughout. Pt has voided per BSC x 2 this shift x 1 assistance. Pt has scattering bruising on arms and buttock but denies any recent falls Pt C/o aching down both arms was medicated with PRN per JAN. on reassessment pt resting quietly in bed.
[2020-06-02 04:00] VITALS: BP 120/59; PULSE 66; RESP 16; TEMP 36.7; O2SAT 90
[2020-06-02 04:33] VITALS: BMI 31.8
[2020-06-02 05:49] LABS: Basophils % 0.5 % (0.1-2.0); Eosinophils # 0.1 K/mm3 (0.0-0.4); Eosinophils % 2.9 % (0.1-12.0); Lymphocytes % 21.4 % (10-50); Mean Corpuscular HGB Conc 32.2 g/dL (31.8-35.4); Mean Corpuscular Hemoglobin 27.7 pg (27.0-31.2); Mean Corpuscular Volume 86.1 fl (81-99); Mean Platelet Volume 8.8 fl (7.4-10.4); Monocytes # 0.4 K/mm3 (0.1-1.0); Monocytes % 8.6 % (1.7-9.3); Neutrophils # 3.2 K/mm3 (1.8-7.8); Neutrophils % 66.5 % (37.0-80.0); Platelet Count 210 K/mm3 (142-424); Red Blood Count 2.74 M/mm3 (4.20-5.40); Red Cell Distribution Width 14.7 % (11.5-17.5); White Blood Count 4.8 K/mm3 (4.8-10.8)
[2020-06-02 05:54] LABS: Hematocrit 23.6 % (37.0-47.0); Hemoglobin 7.6 g/dL (12.2-16.2)
[2020-06-02 05:56] LABS: Chloride 109 mmol/L (98-107); Potassium 3.7 mmoL/L (3.5-5.1); Sodium 137 mmol/L (136-145)
[2020-06-02 05:59] LABS: Anion Gap 7.7 mEq/L (5-15); Blood Urea Nitrogen 31 mg/dl (7-17); Calcium 8.4 mg/dl (8.4-10.2); Carbon Dioxide 24 mmol/L (22.0-30.0); Creatinine Clearance Estimated 24 mL/min (50-200); Estimated Glomerular Filt Rate 19 ml/min (>60); GFR (African American) 23 ML/MIN (>60); Glucose 88 mg/dl (74-100)
[2020-06-02 07:43] VITALS: BP 147/73; PULSE 76; RESP 17; TEMP 36.9; O2SAT 93
--- NOTE | 2020-06-02 07:47 | PC.NURSE ---
@ 0553 Lab notified Sherry Ledbetter RN of critical Hgb 7.6 & Hct 23.6. @ 0556 This RN S/W Fernanda in ER, Dr. Butterfield unavailable at this time, massage left for a call back. @ 0655 This RN discovered final urine culture results, pt is not currently on ABX. ER contacted again, s/w Fernanda and message left for Dr. Butterfield. @ 3930 This RN s/w Dr. Webster regarding the above Labs and Micro, no new orders at this time. This information was passed onto [facility]- Monique Morales RN
[2020-06-02 08:00] VITALS: O2SAT 93
--- NOTE | 2020-06-02 08:46 | PC.NURSE ---
MD JENNINGS AT BEDSIDE. N/O FOR LEVAQUIN IV ADMIN PER JAN. PLANS TO DISCHARGE PATIENT HOME TODAY
--- NOTE | 2020-06-02 08:52 | HMH.DCSUM ---
General - General Admission date:: 06/01/20 Discharge date: 06/02/20 HPI HPI: 70-year-old white female with history of lupus, lupus nephritis, on chronic immunosuppressive medication who has frequent cystitis episodes and has significant peptic ulcer disease with frequent episodes of dyspepsia who ate supper last night and became nauseated and had a lot of vomiting. Became very lethargic, family reported some confusion, and she was brought to the emergency department. In the emergency department her confusion had cleared, but she felt very weak, and was noted to have acute kidney injury superimposed on her chronic kidney disease and therefore was admitted for IV fluids, and further evaluation. Hospital Course Hospital Course: Pleasant 70-year-old female with complex past medical history (see history for full details) including lupus and lupus nephritis. Presented with weakness and fever. Found to have urinary tract infection. Doing well this morning, at baseline level of function. Initiated Levaquin based on sensitivities. Will treat with p.o. Levaquin every 48 hours for a total of 10 days. As patient is hemodynamically stable, kidney function is improving, and has medically necessary equipment at home, will discharge home with close follow-up in our [facility] this coming week. Encouraged good p.o. hydration. Denies fever, nausea, vomiting, dysuria, shortness of breath Objective Vital signs: Temp Pulse Resp BP Pulse Ox 98.5 F 76 17 147/73 H 93 L 06/02/20 07:43 06/02/20 07:43 06/02/20 07:43 06/02/20 07:43 06/02/20 08:00 Narrative: Patient is fatigued, but alert, oriented x3. No jaundice, no scleral icterus. Lungs are clear, no wheeze or rhonchi heart rate regular, no murmur abdomen is soft, slightly tender in both lower quadrants but no deep tenderness, no CVA tenderness No edema or clubbing. Chronic arthritic changes as previously noted. Neurologic exam is notable for global weakness but intact and symmetric. Oropharynx moist Results Labs on day of discharge: Labs from last 24 hours 06/02/20 06/02/20 05:39 05:39 WBC 4.8 RBC 2.74 L Hgb 7.6 L* Hct 23.6 L* MCV 86.1 MCH 27.7 MCHC 32.2 RDW 14.7 Plt Count 210 MPV 8.8 Neut % (Auto) 66.5 Lymph % (Auto) 21.4 [place] % (Auto) 8.6 Eos % (Auto) 2.9 Baso % (Auto) 0.5 Neut # (Auto) 3.2 Lymph # (Auto) 1.0 [place] # (Auto) 0.4 Eos # (Auto) 0.1 Baso # (Auto) 0.0 Sodium 137 Potassium 3.7 Chloride 109 H Carbon Dioxide 24 Anion Gap 7.7 BUN 31 H Creatinine 2.50 H Estimated Creat Clear 24 Estimated GFR 19 L* Est GFR ( Amer) 23 L Glucose 88 Calcium 8.4 DS: Diagnosis - Discharge Diagnosis (1) ELINA (acute kidney injury) Status: Acute Problem details: Acute on chronic kidney failure. 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 Continued home medications for blood pressure, lupus, hypothyroidism. Found to have UTI. Initiated on antibiotics. Stable for discharge home with gradual improvement in her creatinine during hospitalization and fluid resuscitation. Baseline creatinine 2-2.3. 2.5 at time of discharge (2) Chronic renal failure, stage 4 (severe) Status: Chronic (3) Lupus Status: Chronic (4) UTI (urinary tract infection) Status: Acute (5) Hypothyroid Status: Chronic (6) Hypertension Status: Chronic Discharge Plan - Patient Discharge Instructions ACTIVITY: Continue current activity DIET: continue same diet Patient Instructions: Acute Renal Failure, DI for Urinary Tract Infection (UTI) - Follow up Plan Follow up with: Winston Webster MD [Primary Care Provider] - Disposition: Home, Self-Long Term Medications: Home Medications Medication Instructions Recorded Confirmed Type levothyroxine 100 mcg tablet 100 mg PO DAILY 90 Days 02/17/18 06/01/20 History sucralfate 1 gram tablet 1 g
--- NOTE | 2020-06-02 10:03 | HMH.PHAINT ---
PATIENT COUNSELED ON NEW MEDICATION: LEVOFLOXACIN. PATIENT WILL CONTINUE ALL HOME MEDICATIONS. THE PATIENT DID NOT HAVE ANY QUESTIONS.
== END 2020-06-02 10:50 | disposition home or self-care (01) ==
LOC: ER 20:19 → 2ND 23:17
PROVIDERS: Admitting Provider Internal Medicine Adolescent Medicine; Emergency Provider Emergency Medicine; PCP Internal Medicine Adolescent Medicine; Visit Provider Internal Medicine Adolescent Medicine
DX: N39.0 Urinary tract infection, site not specified (principal); N17.9 Acute kidney failure, unspecified; I12.9 Hypertensive chronic kidney disease with stage 1 through stage 4 chronic kidney disease, or unspecified chronic kidney disease; E78.5 Hyperlipidemia, unspecified; J44.9 Chronic obstructive pulmonary disease, unspecified; N18.4 Chronic kidney disease, stage 4 (severe); M32.14 Glomerular disease in systemic lupus erythematosus; B96.89 Other specified bacterial agents as the cause of diseases classified elsewhere
CPT/HCPCS: 36415; 71045; 74176; 80048; 80053; 81001; 82150; 83690; 83735; 84484; 85025; 87086; 87088; 87186; 93005; 96365; 96375; 99285; G0378; J1956; J2405

== ENCOUNTER → 2020-08-05 06:50 | Outpatient (CLI) | payer MEDICARE, MEDICAID, SELFPAY ==
--- NOTE | 2020-08-05 06:51 | CA_ITS ---
APPROVED REPORT Exam: Pharmacologic Technologist: Skyla Salas, Ht: 5 ft 0 in Wt: 153 lbs BSA: 1.67 m2 HR: 79 bpm BP: 166/77 mmHg Rhythm: NSR Medical History Medical History: HTN Medications: Levothyroxine,,,,, Hydralazine,,,,, Isosorbide,,,,, Carvedilol,,,,, Buspirone,,,,, Lasix,,,,, DOxepin,,,,, CitrIZINE,,,,, Hydroxychloroquine,,,,, DexlansAPRAZOLE,,,,, Cardiac Risk Factors: HTN Stress Test Details Test: LEXISCAN HR Resting HR: 80 bpm Max Heart Rate (APMHR): 149 bpm Max HR Achieved: 111 bpm Target HR (85% APMHR): 126 bpm % of APMHR: 74 Recovery HR: 100 bpm BP Resting BP: 166.0/77.0 mmHg Max BP: 166.0/77.0 mmHg Recovery BP: 107.0/67.0 mmHg ECG Resting ECG: NSR Clinical Reason for Termination: Completed Protocol Exercise duration: 04:09 min Highest Stage Achieved: Exercise capacity: 1.0 METs Stress ECG Conclusion DURING INFUSION PATIENT HAD NO CP. NO ARRHYTHMIAS/ECTOPY. <1.5MM ST SEGMENT CHANGES. NON-DIAGNOSTIC Test Summary RECOVERY 05:00 . . 100 . 128/ 62 . . REST 05:45 . . 80 . 166/ 77 . . Stage 1 . . . . . . . Cardiolite injected Stage 1 01:00 . . 107 . . . . Stage 2 01:00 . . 105 . 120/ 60 . . Stage 3 01:00 . . 106 . 101/ 57 . . Stage 4 01:00 . . 103 . . . . Stage 4 01:09 . . 102 . 106/ 64 . Stop exercise at 04:09 RECOVERY 01:00 . . 99 . . . . RECOVERY 02:00 . . 101 . . . . RECOVERY 03:00 . . 101 . . . . RECOVERY 04:00 . . 101 . . . . RECOVERY 05:00 . . 100 . 128/ 62 . . RECOVERY 05:15 . . 100 . 128/ 62 . . Electronically signed by : Joe Lynn, 08/05/2020 13:43:41
--- NOTE | 2020-08-05 06:51 | NM_ITS ---
APPROVED REPORT Exam: Nuclear Stress Test Indication: HTN, HYPERLIPIDEMIA, C.P., SOB, FATIGUE, DIZZINESS Patient Location: Outpatient Stress Tech: Tiffanie Kingnkson [place] Tech:CHELSIE Quiroz RT(R)(N) Ht: 5 ft 0 in Wt: 160 lbs Bra Size: C HR: 79 bpm BP: 166/77 mmHg BSA: 1.70 m2 History: HTN, HYPERLIPIDEMIA, C.P., SOB, FATIGUE, DIZZINESS Procedure: Patient received a 0.4 mg of intravenous Lexiscan, resting heart rate 79 bpm, resting blood pressure 166/77 mmHg, with Lexiscan maximum heart rate achived was 104 bpm which is Less than 85 % of the maximum predicted heart rate and blood pressure was 101/57 mmHg. With Lexiscan, patient denied any complaint of chest pain. Electrocardiogram Resting electrocardiogram shows sinus rhythm nonspecific ST-T changes, with Lexiscan there is less than 1.[address] segment depression noted from the baseline EKG. The EKG portion of the Lexiscan is nondiagnostic. Cardiac Stress and Resting SPECT Images: Cardiac Stress and Resting SPECT images were obtained using technetium 99m Myoview 31.2 mCi stress and 10.15 mCi at rest. Gated SPECT for analysis of segmental wall motion and calculation of the ejection fraction also done. Cardiac stress and resting SPECT images show fixed defect involving the anteroseptal area with decreased contractility and the gated SPECT is likely secondary to nontransmural myocardial scarring, there is no reversible ischemia seen. Computer derived ejection fraction is 47% with moderate anteroseptal wall hypokinesis. Right ventricle is normal size and contractility. Conclusion: 1. The EKG portion of the Lexiscan Myoview is nondiagnostic. 2. Scintigraphic evidence of prior nontransmural myocardial scarring involving the anteroseptal wall, computer derived ejection fraction is 47% with segmental wall motion abnormality described above, right ventricle is normal size and contractility. 3. Abnormal Lexiscan Myoview study. Electronically signed by : Joe Lynn, 08/05/2020 13:48:09
--- NOTE | 2020-08-05 06:51 | CA_ITS ---
APPROVED REPORT EXAM: Comprehensive 2D, Doppler, and color-flow Echocardiogram Wheel Truing Machine Tender: Lenora Luis RDCS Ht: 5 ft 0 in Wt: 158lbs BSA: 1.69 BP: 105/66 mmHg Indications: CP SOA 2D Dimensions LVOT 1.50 cm (M/F) 1.5-2.5 M-Mode Dimensions RVDd 3.05 cm (0.9-2.6) LVDd 5.60 cm (3.5-5.7) LVDs 4.11 cm (3.5-5.7) IVSd 0.76 cm (0.6-1.1) PWd 1.15 cm (0.6-1.1) EF (Teich) 51.40% FS 26.60% EDV (Teich) 153.70 mL ESV (Teich) 74.70 mL LV Diastology E/A Ratio 0.80 Mitral Valve MV A Velocity 74.00 (40-130 cm/s) Left Ventricle Left atrium is mildly enlarged, left ventricle is normal size, mild concentric left ventricular hypertrophy, visually estimated ejection fraction 55% with no regional wall motion abnormality, grade 1 diastolic dysfunction seen without tissue Doppler evidence of raise left atrial pressure. Right Ventricle Right atrium and right ventricle are normal size and contractility. Aortic Valve Aortic valve is minimally thickened and fibrosed, there is no aortic stenosis or aortic insufficiency. Mitral Valve Mitral valve is grossly normal, there is mild mitral regurgitation. Tricuspid Valve Tricuspid valve grossly normal, there is mild tricuspid regurgitation, calculated right ventricular systolic pressure is within normal range. Pulmonic Valve Pulmonic valve is poorly visualized. Great Vessels Aortic root is normal size. Pericardium No significant pericardial effusion noted. Conclusion 1. Mildly enlarged left atrium, normal left ventricular size, mild concentric left ventricular hypertrophy, visually estimated ejection fraction 55% with no regional wall motion abnormality, grade 1 diastolic dysfunction seen without tissue Doppler evidence of raise left atrial pressure. 2. Mild mitral and tricuspid regurgitation. 3. No significant pericardial effusion noted. Electronically signed by : Joe Lynn, 08/05/2020 13:06:21
== END ==
PROVIDERS: PCP Internal Medicine Adolescent Medicine; Visit Provider Urology
DX: I10 Essential (primary) hypertension (principal); I25.10 Atherosclerotic heart disease of native coronary artery without angina pectoris; M32.9 Systemic lupus erythematosus, unspecified; N19 Unspecified kidney failure; R06.00 Dyspnea, unspecified; R07.9 Chest pain, unspecified
CPT/HCPCS: 78452; 93017; 93306; A9502; J2785

== ENCOUNTER 2020-08-08 13:24 | Emergency (ER) | payer MEDICARE, MEDICAID, SELFPAY ==
[2020-08-08 13:13] VITALS: BP 119/63; PULSE 88; RESP 20; O2SAT 95; BMI 30.8
--- NOTE | 2020-08-08 13:17 | PC.NURSE ---
Pt on bed pruett at this time.
--- NOTE | 2020-08-08 13:30 | XR_ITS ---
PROCEDURE: XR CHEST PORTABLE CLINICAL HISTORY: cough COMPARISON: CR CXR CHEST(2 VIEWS-NOT PORTABLE) from 09/24/2017 CR XR CHEST PORTABLE from 03/29/[address] CHEST WO CON from 03/29/2020 CR XR CHEST PORTABLE from 05/31/2020 FINDINGS: Low lung volumes. Mild cardiomegaly without failure. Surgical clips present in the right lung base. Left lung base is under penetrated. No obvious lobar consolidation or collapse. No acute bony abnormalities. IMPRESSION: Cardiomegaly with elevated right hemidiaphragm. No definite acute finding Dictated by: Carlos Ruggiero MD 08/09/2020 04:56 Carlos Ruggiero MD in [facility] 08/09/2020 04:56
--- NOTE | 2020-08-08 13:30 | CT_ITS ---
PROCEDURE: CT HEAD/BRAIN WO CON CLINICAL INDICATION: weakness Syncope COMPARISON: No exams were available for comparison TECHNIQUE: Axial images obtained. All CT scans at the facility use one or more dose reduction, viz: automated exposure control, ma/kV adjustment per patient size (including targeted exams where dose is matched to indication, i.e. head), or iterative reconstruction technique. FINDINGS: No midline shift, mass effect, intracranial hemorrhage, hydrocephalus, or extra-axial fluid collection is evident. There is generalized atrophy with hypoattenuation of the periventricular white matter consistent with microangiopathic changes. The calvarium has an unremarkable appearance. No mastoid effusion. No sinus air-fluid level. IMPRESSION: No acute intracranial finding Dictated by: Carlos Ruggiero MD 08/09/2020 05:36 Carlos Ruggiero MD in [facility] 08/09/2020 05:36
--- NOTE | 2020-08-08 13:33 | PC.NURSE ---
Pt taken off of bed pruett after having a bowel movement.
--- NOTE | 2020-08-08 13:44 | PC.NURSE ---
Pt to rad.
[2020-08-08 13:47] LABS: Basophils % 0.7 % (0.1-2.0); Chloride 101 mmol/L (98-107); Eosinophils # 0.1 K/mm3 (0.0-0.4); Eosinophils % 1.9 % (0.1-12.0); Hematocrit 26.7 % (37.0-47.0); Hemoglobin 8.8 g/dL (12.2-16.2); Lymphocytes % 16.9 % (10-50); Mean Corpuscular Volume 84.9 fl (81-99); Mean Platelet Volume 7.5 fl (7.4-10.4); Monocytes # 0.4 K/mm3 (0.1-1.0); Monocytes % 6.3 % (1.7-9.3); Neutrophils # 4.3 K/mm3 (1.8-7.8); Neutrophils % 74.2 % (37.0-80.0); Platelet Count 325 K/mm3 (142-424); Potassium 3.8 mmoL/L (3.5-5.1); Red Blood Count 3.15 M/mm3 (4.20-5.40); Red Cell Distribution Width 14.5 % (11.5-17.5); Sodium 141 mmol/L (136-145); White Blood Count 5.8 K/mm3 (4.8-10.8)
[2020-08-08 13:50] LABS: Blood Urea Nitrogen 52 mg/dl (7-17); Creatinine Clearance Estimated 17 mL/min (50-200); Estimated Glomerular Filt Rate 13 ml/min (>60); GFR (African American) 16 ML/MIN (>60)
[2020-08-08 13:51] LABS: Anion Gap 16.8 mEq/L (5-15); Calcium 9.3 mg/dl (8.4-10.2); Carbon Dioxide 27 mmol/L (22.0-30.0); Glucose 142 mg/dl (74-100)
--- NOTE | 2020-08-08 13:56 | HMH.EDDIZZ ---
ED Disposition Clinical Impression: Near syncope, Kdque-[id number] kidney injury Disposition: Home, Self-Care Condition on Discharge: Good Instructions: DI for Syncope in Adults (Fainting) Referrals: Winston Webster MD [Primary Care Provider] - - Critical Care Critical Care Time: No Attestation: On 08/08/20, the high probability of a clinically significant, sudden or life threatening deterioration of the following system(s) required my full and direct attention, intervention and personal management. The time I documented below is in addition to time spent performing reported procedures but includes the following listed in this critical care notation. Medical Decision Making - Edmund Inquiry Pt receiving controlled substance: No Vital Signs: 08/08/20 13:13 08/08/20 14:13 08/08/20 15:15 Pulse Rate [Radial] 88 83 80 Respiratory Rate 20 24 Blood Pressure [Right Arm] 119/63 128/56 L 137/62 Blood Pressure Mean [Right Arm] 81 80 87 Blood Pressure Source [Right Arm] Automatic Cuff Automatic Cuff Automatic Cuff Blood Pressure Position [Right Arm] Sitting Sitting Sitting 02 Sat by Pulse Oximetry 95 95 95 Oxygen Delivery Method Room Air Room Air Room Air - Lab Data Lab Results 08/08/20 13:14: WBC 5.8, RBC 3.15 L, Hgb 8.8 L, Hct 26.7 L, MCV 84.9, MCH 28.0, MCHC 33.0, RDW 14.5, Plt Count 325, MPV 7.5, Neut % (Auto) 74.2, Lymph % (Auto) 16.9, Morgan % (Auto) 6.3, Eos % (Auto) 1.9, Baso % (Auto) 0.7, Neut # (Auto) 4.3, Lymph # (Auto) 1.0, Morgan # (Auto) 0.4, Eos # (Auto) 0.1, Baso # (Auto) 0.0 08/08/20 13:14: Sodium 141, Potassium 3.8, Chloride 101, Carbon Dioxide 27, Anion Gap 16.8 H, BUN 52 H, Creatinine 3.50 H, Estimated Creat Clear 17, Estimated GFR 13 L*, Est GFR ( Amer) 16 L*, Glucose 142 H, Calcium 9.3, Troponin I < 0.01, TSH 0.12 L Result diagrams: 08/08/20 13:14 08/08/20 13:14 Orders (Tests/Meds): ED MEDICATIONS Generic Name Dose Route Start Last Admin Trade Name Freq PRN Reason Stop Dose Admin Sodium Chloride 1,000 mls @ 500 mls/hr 08/08/20 14:15 08/08/20 14:23 Sod Chlor 0.9% 1000ml Bag IV 09/07/20 14:14 500 mls/hr .Q2H DEVON Administration ORDERS Category Date Time Status CT head/brain wo con Stat Cat Scan 08/08/20 13:30 Taken XR chest portable Stat Exams 08/08/20 13:30 Taken Troponin I Q3H Lab 08/08/20 16:30 Ordered Troponin I Q3H Lab 08/08/20 19:30 Ordered Urinalysis and Microscopic Stat Lab 08/08/20 13:30 Ordered EKG Request [ECG Request by /Gary] Stat Y 08/08/20 14:02 Ordered - Radiology Data #1 Image(s): Chest Preliminary Findings: Normal/NAD - CT Data CT Scan: Head Time Received: 15:47 Findings Narrative: Age-related chronic changes, no evidence of acute intracranial abnormality. No hemorrhage or mass-effect or midline shift - ECG Data Tracing #1 Normal ventricular rate of 74 bpm, normal [place] interval. Prolonged QTC. Nonspecific changes. ECG initial impression date: 08/08/20 ECG initial impression time: 14:59 Medical Decision Narrative: 70-year-old female presented to the emergency department with a near syncopal episode. Patient has a normal neurologic exam at this time. Work-up initiated. Dizzy HPI - General Chief Complaint: Syncope Stated Complaint: Syncope Time Seen by Provider: 08/08/20 13:30 Mode of Arrival: EMS Limitations: No Limitations Description of Symptoms (Recalled from ER Triage Doc. by RN): While in the grocery store today she began to get lightheaded, dizzy, then passed out. States the staff caught her and she did not fall. Has happened in the past and found out she was dehydrated the last time this happened. - History of Present Illness HPI Narrative: This is a 70-year-old female presented to the emergency department with a near syncopal episode. Patient states that she was grocery shopping when she started feeling very lightheaded. She was using her motorized scooter at the time. Patient states t
[2020-08-08 14:08] LABS: Troponin I < 0.01 ng/ml (0.00-0.034)
[2020-08-08 14:13] VITALS: BP 128/56; PULSE 83; RESP 24; O2SAT 95
[2020-08-08 14:22] LABS: Thyroid Stimulating Hormone 0.12 uIU/mL (0.465-4.68)
--- NOTE | 2020-08-08 14:25 | PC.NURSE ---
Pt back to rad for chest xray
--- NOTE | 2020-08-08 14:29 | PC.NURSE ---
Pt returned from rad.
--- NOTE | 2020-08-08 14:38 | PC.NURSE ---
notified of patient's creatinine level.
--- NOTE | 2020-08-08 14:57 | ECG_ITS ---
APPROVED REPORT Exam: Resting ECG HR:74 bpm ECG Measurements Heart Rate 74 AXES OR 168 P 33 QRSd 86 QRS -14 QT 468 T 54 QTc 519 <Conclusion> Normal sinus rhythm Moderate voltage criteria for LVH, may be normal variant Nonspecific T wave abnormality Prolonged QT Abnormal ECG Electronically signed by : Winston Webster, 08/10/2020 06:26:16
[2020-08-08 15:15] VITALS: BP 137/62; PULSE 80; O2SAT 95
--- NOTE | 2020-08-08 15:20 | PC.NURSE ---
Pt up to restroom.
[2020-08-08 15:54] VITALS: BP 137/62; PULSE 80; RESP 20; TEMP 36.7; O2SAT 95
== END 2020-08-08 15:58 | disposition home or self-care (01) ==
PROVIDERS: Emergency Provider Emergency Medicine; PCP Internal Medicine Adolescent Medicine
DX: R55 Syncope and collapse (principal); N17.9 Acute kidney failure, unspecified; N18.4 Chronic kidney disease, stage 4 (severe); E78.5 Hyperlipidemia, unspecified; I10 Essential (primary) hypertension; K21.9 Gastro-esophageal reflux disease without esophagitis; Z90.710 Acquired absence of both cervix and uterus; Z79.899 Other long term (current) drug therapy
CPT/HCPCS: 70450; 71045; 80048; 84443; 84484; 85025; 93005; 96365; 99284

== ENCOUNTER 2020-08-12 13:04 | Outpatient (CLI) | payer MEDICARE, MEDICAID, SELFPAY ==
[2020-08-12 13:16] VITALS: BMI 30.8
[2020-08-12 13:33] VITALS: BP 162/85; PULSE 71; RESP 18; O2SAT 99
[2020-08-12 14:10] LABS: Basophils # 0.1 K/mm3 (0-0.2); Basophils % 0.6 % (0.1-2.0); Chloride 103 mmol/L (98-107); Eosinophils # 0.1 K/mm3 (0.0-0.4); Eosinophils % 0.9 % (0.1-12.0); Hematocrit 26.6 % (37.0-47.0); Hemoglobin 8.9 g/dL (12.2-16.2); Lymphocytes # 0.6 K/mm3 (0.7-4.5); Lymphocytes % 7.4 % (10-50); Mean Corpuscular HGB Conc 33.5 g/dL (31.8-35.4); Mean Corpuscular Hemoglobin 27.9 pg (27.0-31.2); Mean Corpuscular Volume 83.2 fl (81-99); Mean Platelet Volume 8.2 fl (7.4-10.4); Monocytes # 0.4 K/mm3 (0.1-1.0); Neutrophils # 7.2 K/mm3 (1.8-7.8); Platelet Count 307 K/mm3 (142-424); Red Cell Distribution Width 14.5 % (11.5-17.5); Sodium 140 mmol/L (136-145); White Blood Count 8.3 K/mm3 (4.8-10.8)
[2020-08-12 14:11] LABS: Potassium 4.3 mmoL/L (3.5-5.1)
[2020-08-12 14:13] LABS: Alanine Aminotransferase 10 U/L (12-78); Albumin/Globulin Ratio 1.4 (1.1-1.8); Alkaline Phosphatase 99 U/L (38-126); Anion Gap 14.3 mEq/L (5-15); Aspartate Amino Transferase 22 U/L (14-36); Bilirubin,Total 0.4 mg/dl (0.2-1.3); Blood Urea Nitrogen 38 mg/dl (7-17); Carbon Dioxide 27 mmol/L (22.0-30.0); Creatinine Clearance Estimated 22 mL/min (50-200); Estimated Glomerular Filt Rate 17 ml/min (>60); GFR (African American) 21 ML/MIN (>60); Globulin 2.8 g/dL (1.3-3.2); MANUAL DIFFERENTIAL MANUAL DIFFERENTIAL (MANUAL DIFF); Total Protein,Serum 6.8 g/dl (6.3-8.2)
[2020-08-12 14:14] LABS: Calcium 9.5 mg/dl (8.4-10.2); Glucose 111 mg/dl (74-100)
[2020-08-12 14:27] LABS: Lymphocytes % 12 % (10-50); Monocytes % 4 % (2-9); Neutrophils % 84 % (42-76); Platelet Estimate Normal; RBC Morphology Normal; Total Cells Counted 100
[2020-08-12 15:49] VITALS: BP 142/72; PULSE 98; RESP 18
== END 2020-08-12 13:49 | disposition home or self-care (01) ==
LOC: INF 13:06
PROVIDERS: PCP Internal Medicine Adolescent Medicine; Visit Provider Nurse Practitioner Family
DX: E86.0 Dehydration (principal)
CPT/HCPCS: 80053; 85007; 85025; 96360; 96361

== ENCOUNTER → 2020-09-07 11:09 | Outpatient (CLI) | payer MEDICARE, MEDICAID, SELFPAY ==
[2020-09-07 11:34] LABS: Basophils % 0.7 % (0.1-2.0); Eosinophils # 0.2 K/mm3 (0.0-0.4); Eosinophils % 3.6 % (0.1-12.0); Hematocrit 29.9 % (37.0-47.0); Lymphocytes # 0.9 K/mm3 (0.7-4.5); Mean Corpuscular HGB Conc 30.1 g/dL (31.8-35.4); Mean Corpuscular Hemoglobin 26.7 pg (27.0-31.2); Mean Corpuscular Volume 88.6 fl (81-99); Monocytes # 0.3 K/mm3 (0.1-1.0); Monocytes % 5.3 % (1.7-9.3); Neutrophils # 4.3 K/mm3 (1.8-7.8); Neutrophils % 74.5 % (37.0-80.0); Platelet Count 262 K/mm3 (142-424); Red Blood Count 3.37 M/mm3 (4.20-5.40); White Blood Count 5.8 K/mm3 (4.8-10.8)
[2020-09-07 12:04] LABS: Chloride 102 mmol/L (98-107); Potassium 4.3 mmoL/L (3.5-5.1); Sodium 140 mmol/L (136-145)
[2020-09-07 12:07] LABS: Anion Gap 16.3 mEq/L (5-15); Blood Urea Nitrogen 40 mg/dl (7-17); Carbon Dioxide 26 mmol/L (22.0-30.0); Estimated Glomerular Filt Rate 13 ml/min (>60); GFR (African American) 16 ML/MIN (>60)
[2020-09-07 12:08] LABS: Calcium 9.2 mg/dl (8.4-10.2); Glucose 86 mg/dl (74-100)
[2020-09-07 12:27] LABS: Coronavirus 19 IgG Antibody Negative (Negative); Coronavirus 19 IgM Antibody Negative (Negative)
== END ==
PROVIDERS: Visit Provider Internal Medicine
DX: Z01.89 Encounter for other specified special examinations (principal); R07.9 Chest pain, unspecified
CPT/HCPCS: 36415; 80048; 85025; 86328

== ENCOUNTER → 2020-09-13 09:03 | Outpatient (CLI) | payer MEDICARE, MEDICAID, SELFPAY ==
--- NOTE | 2020-09-13 09:13 | MM_ITS ---
PROCEDURE: MM DIG SCREENING MAMM BI W/CAD Referring Doctor: Winston Webster Patient Age:70Y CLINICAL INDICATION: SCREENING 70-year-old screening mammogram. No hormones no new complaints Family history: Mother with breast cancer age 70. Also nodes sister with breast cancer COMPARISON: MG SCREENING MAMMO DIGITAL W/ CAD from 03/23/2010 MG DIGMAMMS MAMMOGRAM SCREEN-CAN BANDER OPERATOR N/C from 12/30/2012 MG DIGMAMMDX MAMMOGRAM DX-CAN BANDER OPERATOR N/C from 01/28/2013 MG DIGMAMMDX MAMMOGRAM DX-CAN BANDER OPERATOR N/C from 02/04/2013 MG DIGMAMMDX MAMMOGRAM DX-CAN BANDER OPERATOR N/C from 07/17/2013 MG DMSB DIG MAMM-SCREEN BRITT from 09/06/2015 MG DMSB DIG MAMM-SCREEN BRITT from 09/11/2016 MG SCBI MM Dig screening mamm BI w/CAD from 05/07/2018 TECHNIQUE: Standard CC and MLO images were obtained. R2 CAD reviewed. Bilateral digital breast tomosynthesis included. FINDINGS: . Moderate residual fibroglandular elements for this age patient.. Stable moderate asymmetry No new dominant or suspicious mass in either breast. No suspicious calcifications. Vascular calcifications bilaterally. Right breast: No new areas of significant concern. Patchy areas of stable final gal density again noted and unchanged since multiple previous studies dating back to at least 2014 Appears to been a previous percutaneous biopsy with small metallic marker at the deep right breast near 12 o'clock position. Minor scarring and distortion here from the biopsy but no new areas of concern.. Left breast: No new areas of concern. Again we see stable asymmetric fibroglandular elements towards the medial left breast but these have been present and similar to studies dating back to 2009 but this long-term stability supports benign nature. No new areas of significant concern IMPRESSION: Stable bilateral mammogram, with no new areas of significant concern Stable moderate density breast, with stable moderate asymmetry. Ongoing bilateral follow-up 1 year recommended and should be emphasized, especially in in view of positive family history, BI-RAD Category: 1 Negative FOLLOW-UP: 1YR 1 Year Follow-up (A letter has been sent to the patient regarding results of the study.) Dictated by: Ld Michaels MD 09/15/2020 09:46 Ld Michaels MD in [facility] 09/15/2020 09:46
== END ==
PROVIDERS: PCP Internal Medicine Adolescent Medicine; Visit Provider Internal Medicine Adolescent Medicine
DX: Z12.31 Encounter for screening mammogram for malignant neoplasm of breast (principal)
CPT/HCPCS: 77063; 77067

== ENCOUNTER → 2021-01-27 09:52 | Outpatient (CLI) | payer MEDICARE, MEDICAID, SELFPAY ==
--- NOTE | 2021-01-27 09:56 | XR_ITS ---
PROCEDURE: XR DEXA AXIAL SKELETON CLINICAL HISTORY: POST MENOPAUSAL COMPARISON: CR DEXAAX XR DEXA axial skeleton from 02/16/2019 FINDINGS: The right hip BMD is 0.56 with a T-score of -2.6. The left hip BMD is 0.715 with a T-score of -1.9. The lumbar spine BMD is 0.850 with a T-score of -1.8. Previously the lowest density was in the right femoral neck with a T-score of -1.9 IMPRESSION: This patient is considered osteoporotic according to the World Health Organization criteria. Fracture risk is high. Treatment is advised. Based on these results a follow-up exam is recommended in 1 year. Dictated by: Carlos Ruggiero MD 01/28/2021 13:57 Carlos Ruggiero MD in [facility] 01/28/2021 13:57
== END ==
PROVIDERS: PCP Internal Medicine Adolescent Medicine; Visit Provider Internal Medicine Adolescent Medicine
DX: Z13.820 Encounter for screening for osteoporosis (principal); Z78.0 Asymptomatic menopausal state
CPT/HCPCS: 77080

== ENCOUNTER → 2021-02-02 13:28 | Outpatient (POV) | payer MEDICARE, MEDICAID, SELFPAY | PROVIDERS: Visit Provider Audiologist | DX: Z00.00 Encounter for general adult medical examination without abnormal findings (principal) ==

== ENCOUNTER → 2021-03-02 10:25 | Outpatient (POV) | payer MEDICARE, MEDICAID, SELFPAY | PROVIDERS: Visit Provider Audiologist | DX: Z00.00 Encounter for general adult medical examination without abnormal findings (principal) ==

== ENCOUNTER 2021-06-09 13:28 | Observation (INO) | payer MEDICARE, MEDICAID, SELFPAY ==
[2021-06-09] VITALS (8 sets, daily range): BP systolic 122–202; BP diastolic 50–97; PULSE 72–88; RESP 16–22; TEMP 36.4–36.6; O2SAT 96–99; BMI 29.2; BMI 29.7
--- NOTE | 2021-06-09 13:31 | CT_ITS ---
PROCEDURE: CT HEAD/BRAIN WO CON CLINICAL INDICATION: unilateral numbness Right-sided numbness COMPARISON: CT CT HEAD/BRAIN WO CON from 08/08/2020 TECHNIQUE: Axial images obtained. All CT scans at the facility use one or more dose reduction, viz: automated exposure control, ma/kV adjustment per patient size (including targeted exams where dose is matched to indication, i.e. head), or iterative reconstruction technique. FINDINGS: No midline shift, mass effect, intracranial hemorrhage, hydrocephalus, or extra-axial fluid collection is evident. There is generalized atrophy with hypoattenuation of the periventricular white matter consistent with microangiopathic changes. There is an old lacunar infarction in the left thomas radiata the calvarium has an unremarkable appearance. No mastoid effusion. No sinus air-fluid level. IMPRESSION: No acute intracranial finding Dictated by: Carlos Ruggiero MD 06/09/2021 15:21 Carlos Ruggiero MD in [facility] 06/09/2021 15:21
--- NOTE | 2021-06-09 13:33 | ECG_ITS ---
APPROVED REPORT Exam: Resting ECG HR:85 bpm ECG Measurements Heart Rate 85 AXES IL 164 P 40 QRSd 74 QRS -24 QT 440 T 37 QTc 523 Conclusion Normal sinus rhythm Minimal voltage criteria for LVH, may be normal variant Possible Lateral infarct, age undetermined Prolonged QT Abnormal ECG Electronically signed by : Winston Webster, 06/11/2021 13:51:10
--- NOTE | 2021-06-09 13:41 | HMH.EDGENADL ---
ED Disposition Clinical Impression: Hypocalcemia Urinary tract infection Qualifiers: Urinary tract infection type: acute cystitis Hematuria presence: without hematuria Qualified Code(s): N30.00 - Acute cystitis without hematuria Altered mental status Qualifiers: Altered mental status type: unspecified Qualified Code(s): R41.82 - Altered mental status, unspecified Disposition: Admitted As Inpatient Condition on Discharge: Good - Critical Care Critical Care Time: No Attestation: On 06/09/21, the high probability of a clinically significant, sudden or life threatening deterioration of the following system(s) required my full and direct attention, intervention and personal management. The time I documented below is in addition to time spent performing reported procedures but includes the following listed in this critical care notation. Medical Decision Making - Medical Records Medical records reviewed: Yes: I reviewed the patient's medical records. - Edmund Inquiry Pt receiving controlled substance: No Vital Signs: 06/09/21 13:33 06/09/21 14:00 06/09/21 14:30 Temperature 97.8 F Temperature Source Oral Pulse Rate 78 77 Pulse Rate [Apical] 86 Respiratory Rate 16 20 20 Blood Pressure 174/88 H 202/96 H Blood Pressure [Right Arm] 143/97 H Blood Pressure Mean Blood Pressure Mean [Right Arm] 112 Blood Pressure Source [Right Arm] Automatic Cuff Blood Pressure Position [Right Arm] Supine 02 Sat by Pulse Oximetry 96 98 97 Oxygen Delivery Method Room Air 06/09/21 16:30 06/09/21 17:00 06/09/21 17:30 Temperature Temperature Source Pulse Rate 74 78 78 Pulse Rate [Apical] Respiratory Rate 20 22 22 Blood Pressure 175/83 H 172/85 H 189/92 H Blood Pressure [Right Arm] Blood Pressure Mean 105 96 115 Blood Pressure Mean [Right Arm] Blood Pressure Source [Right Arm] Blood Pressure Position [Right Arm] 02 Sat by Pulse Oximetry 98 98 98 Oxygen Delivery Method - Lab Data Lab Results 06/09/21 13:30: WBC 7.5, RBC 3.17 L, Hgb 9.0 L, Hct 26.5 L, MCV 83.5, MCH 28.4, MCHC 34.0, RDW 14.9, Plt Count 294, MPV 7.9, Neut % (Auto) 84.4 H, Lymph % (Auto) 10.1, [place] % (Auto) 4.6, Eos % (Auto) 0.5, Baso % (Auto) 0.6, Neut # (Auto) 6.3, Lymph # (Auto) 0.8, [place]cher # (Auto) 0.3, Eos # (Auto) 0.0, Baso # (Auto) 0.0 06/09/21 13:30: Sodium 142, Potassium 4.8, Chloride 111 H, Carbon Dioxide 17 L, Anion Gap 18.8 H, BUN 37 H, Creatinine 2.80 H, Estimated Creat Clear 21, Estimated GFR 17 L*, Est GFR ( Amer) 20 L, Glucose 82, Calcium 5.2 L*, Total Bilirubin 0.3, AST 25, ALT 10 L, Alkaline Phosphatase 106, Troponin I < 0.01, Total Protein 7.5, Albumin 4.4, Globulin 3.1, Albumin/Globulin Ratio 1.4, Lipase 100 06/09/21 13:30: Lactate 1.3 06/09/21 13:30: PT 10.9, INR 0.92, APTT 26.5 06/09/21 13:38: VBG pH 7.35, VBG pCO2 30.6 L, VBG pO2 63.4 H, VBG HCO3 16.4 L, VBG Total CO2 17.3 L, VBG O2 Saturation 90.8 H, VBG Base Excess -9.3 L 06/09/21 14:40: Stool Occult Blood Negative 06/09/21 16:37: Urine Color Yellow, Urine Appearance Clear, Urine pH 6.5, Ur Specific [place] 1.020, Urine Protein 2+, Urine Glucose (UA) Negative, Urine Ketones Negative, Urine Blood 1+, Urine Nitrate Negative, Urine Bilirubin Negative, Urine Urobilinogen 0.2, Ur Leukocyte Esterase 3+ A, Urine RBC 3-5, Urine WBC 5-10, Ur Squamous Epith Cells Occasional, Urine Bacteria 1+ 06/09/21 16:50: SARS-CoV-2 (PCR) Not detected, Influenza A Untype (PCR) Not detected, Influenza Type B (PCR) Not detected 06/09/21 17:20: Troponin I < 0.01 Result diagrams: 06/09/21 13:30 06/09/21 13:30 Orders (Tests/Meds): ED MEDICATIONS Generic Name Dose Route Start Last Admin Trade Name Freq PRN Reason Stop Dose Admin Lactated Ringer's 1,000 mls @ 75 mls/hr 06/09/21 16:45 06/09/21 17:02 Lactated Ringer's 1000 Ml Bag IV 07/09/21 16:44 75 mls/hr .[id number] DEVON Administration Ceftriaxone Sodium 1 gm/ 50 mls @ 100 mls/hr 06/09/21 17:15 Sodium
[2021-06-09 13:53] LABS: Basophils % 0.6 % (0.1-2.0); Eosinophils % 0.5 % (0.1-12.0); Hematocrit 26.5 % (37.0-47.0); Lymphocytes # 0.8 K/mm3 (0.7-4.5); Lymphocytes % 10.1 % (10-50); Mean Corpuscular Hemoglobin 28.4 pg (27.0-31.2); Mean Corpuscular Volume 83.5 fl (81-99); Mean Platelet Volume 7.9 fl (7.4-10.4); Monocytes # 0.3 K/mm3 (0.1-1.0); Monocytes % 4.6 % (1.7-9.3); Neutrophils # 6.3 K/mm3 (1.8-7.8); Neutrophils % 84.4 % (37.0-80.0); Platelet Count 294 K/mm3 (142-424); Red Blood Count 3.17 M/mm3 (4.20-5.40); Red Cell Distribution Width 14.9 % (11.5-17.5); White Blood Count 7.5 K/mm3 (4.8-10.8)
[2021-06-09 14:01] LABS: Chloride 111 mmol/L (98-107); Potassium 4.8 mmoL/L (3.5-5.1); Sodium 142 mmol/L (136-145)
[2021-06-09 14:04] LABS: Alanine Aminotransferase 10 U/L (12-78); Albumin Level 4.4 g/dl (3.5-5.0); Albumin/Globulin Ratio 1.4 (1.1-1.8); Alkaline Phosphatase 106 U/L (38-126); Anion Gap 18.8 mEq/L (5-15); Aspartate Amino Transferase 25 U/L (14-36); Bilirubin,Total 0.3 mg/dl (0.2-1.3); Blood Urea Nitrogen 37 mg/dl (7-17); Carbon Dioxide 17 mmol/L (22.0-30.0); Creatinine Clearance Estimated 21 mL/min (50-200); Estimated Glomerular Filt Rate 17 ml/min (>60); GFR (African American) 20 ML/MIN (>60); Globulin 3.1 g/dL (1.3-3.2); Glucose 82 mg/dl (74-100); Lipase 100 U/L (23-300); Total Protein,Serum 7.5 g/dl (6.3-8.2)
[2021-06-09 14:05] LABS: Lactic Acid 1.3 mmol/L (0.7-2.1)
[2021-06-09 14:12] LABS: Calcium 5.2 mg/dl (8.4-10.2)
[2021-06-09 14:13] LABS: Activated Partial Thrombo Time 26.5 seconds (22.8-30.6); Prothrombin Time 10.9 seconds (10.1-12.5)
[2021-06-09 14:14] LABS: INR 0.92 (0.9-1.1)
--- NOTE | 2021-06-09 14:15 | CT_ITS ---
PROCEDURE: CT ABDOMEN PELVIS WO CON CLINICAL INDICATION: diffuse pain Generalized abdominal pain COMPARISON: CT CT ABDOMEN PELVIS WO CON from 05/31/2020 TECHNIQUE: Axial images obtained with sagittal and coronal reformats. All CT scans at the facility use one or more dose reduction, viz: automated exposure control, ma/kV adjustment per patient size (including targeted exams where dose is matched to indication, i.e. head), or iterative reconstruction technique. FINDINGS: LOWER THORAX: Atelectatic changes in the lung bases with elevated right hemidiaphragm. Coronary artery calcifications are present. ABDOMEN & PELVIS: Gallbladder is distended. No focal liver lesion apparent. The spleen is unremarkable. Adrenal glands are mildly prominent and stable. 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 Unremarkable appearing pancreas. No intestinal obstruction or free air. There is diffuse colonic diverticulosis with fluid-filled large bowel. The appendix is not clearly delineated. No evidence of appendicitis or diverticulitis. There are some fluid-filled loops of small bowel as well with scattered air-fluid levels. The small bowel is nondistended. There are post hysterectomy changes. There are degenerative changes of the lumbar spine with 8 mm anterolisthesis of L4 on L5 and 7 mm anterolisthesis of L5 on S1 degenerative changes are present in the hips. IMPRESSION: 1. Mildly distended gallbladder 2. Fluid-filled loops of small and large bowel with some scattered air-fluid levels which may indicate ileus or enterocolitis. Diarrhea disease is also consideration. 3. Other nonemergent findings as described above Dictated by: Carlos Ruggiero MD 06/09/2021 15:28 Carlos Ruggiero MD in [facility] 06/09/2021 15:28
[2021-06-09 14:21] LABS: Troponin I < 0.01 ng/ml (0.00-0.034)
[2021-06-09 14:26] LABS: VBG Base Excess -9.3 mmol/L (-2.4-2.3); VBG HCO3 16.4 mmol/L (23-30); VBG Oxygen Saturation 90.8 % (50-70); VBG PCO2 30.6 mmol/L (35-51); VBG PH 7.35 mmol/L (7.31-7.41); VBG PO2 63.4 mmol/L (28-40); VBG Total CO2 17.3 mmol/L (23-27)
[2021-06-09 15:24] LABS: Occult Blood,Stool Negative (Negative)
[2021-06-09 16:54] LABS: Coronavirus 19, PCR Not Detected (NotDetected); Influenza A, PCR Not Detected (NotDetected); Influenza B, PCR Not Detected (NotDetected)
[2021-06-09 16:54] LABS: Appearance,Urine CLEAR (Clear); Bilirubin,Urine Negative (Negative); Blood, Urine 1+ (Negative); Color,Urine YELLOW (Yellow); Glucose,Urine (UA) Negative (Negative); Ketones,Urine Negative (Negative); Leukocyte Esterase,Urine 3+ (Negative); Microscopic, Urine URINE MICROSCOPIC (MICROSCOPIC); Nitrate,Urine Negative (Negative); PH,Urine 6.5 (5.0-8.5); Protein,Urine 2+ (Negative); Urobilinogen,Urine 0.2 EU/dl (0.2)
[2021-06-09 16:58] LABS: Bacteria,Urine 1+ /lpf; Squamous Epithelial Cell,Urine Occasional #/hpf (0-5)
[2021-06-09 17:51] LABS: Troponin I < 0.01 ng/ml (0.00-0.034)
--- NOTE | 2021-06-09 18:51 | PC.NURSE ---
REPORT CALLED TO FLOOR
[2021-06-10] VITALS: BP 134/62; PULSE 61; RESP 16; TEMP 36.7; O2SAT 96
--- NOTE | 2021-06-10 | MR_ITS ---
PROCEDURE INFORMATION: Exam: MR Head Without Contrast Exam date and time: 06/10/2021 12:00 AM Age: 71 years old Clinical indication: Speech disturbance and walking, difficulty; Slurred speech; Patient HX: PT has new onset of slured speech, tremors and facial numbness. ; Additional info: Slurred speech and numbness TECHNIQUE: Imaging protocol: MR of the head without contrast. COMPARISON: CT HEAD/BRAIN WO CON 06/09/2021 2:56 PM FINDINGS: Brain: Similar small-vessel ischemic changes and generalized volume loss. Chronic lacunar infarcts right greater than left thalami and left greater than right periventricular white matter. No diffusion abnormalities. There is no evidence of acute intracranial hemorrhage. No mass effect or midline shift. Cerebral ventricles: Normal. No ventriculomegaly. Bones/joints: Unremarkable. Paranasal sinuses: There is a benign mucous retention cyst versus polyp right maxillary antrum. Mastoid air cells: Normal as visualized. No mastoid effusion. Orbital cavity: Bilateral lens replacements noted. Soft tissues: Unremarkable. IMPRESSION: Age-related atrophy and chronic white matter ischemic changes, with no evidence of an acute intracranial abnormality.
--- NOTE | 2021-06-10 03:46 | PC.NURSE ---
shift summary pt is alert and oriented X3. lungs sounds are clear with sats maintained 95% or above on room air. pt has slept comfortably for most of the shift. pt denies any pain, nausea, vomiting, or diarrhea. hodges in place with clear yellow in color urine. no acute changes will continue to monitor.
[2021-06-10 04:00] VITALS: BP 144/57; PULSE 72; RESP 16; TEMP 36.8; O2SAT 94
[2021-06-10 06:31] LABS: Basophils % 0.8 % (0.1-2.0); Eosinophils # 0.1 K/mm3 (0.0-0.4); Eosinophils % 1.4 % (0.1-12.0); Hematocrit 25.8 % (37.0-47.0); Hemoglobin 8.5 g/dL (12.2-16.2); Lymphocytes # 0.9 K/mm3 (0.7-4.5); Mean Corpuscular HGB Conc 32.8 g/dL (31.8-35.4); Mean Corpuscular Hemoglobin 28.2 pg (27.0-31.2); Mean Corpuscular Volume 85.9 fl (81-99); Mean Platelet Volume 7.2 fl (7.4-10.4); Monocytes # 0.3 K/mm3 (0.1-1.0); Monocytes % 5.7 % (1.7-9.3); Neutrophils # 4.1 K/mm3 (1.8-7.8); Neutrophils % 75.1 % (37.0-80.0); Platelet Count 275 K/mm3 (142-424); Red Cell Distribution Width 14.7 % (11.5-17.5); White Blood Count 5.5 K/mm3 (4.8-10.8)
[2021-06-10 06:42] LABS: Alanine Aminotransferase 6 U/L (12-78); Albumin Level 3.7 g/dl (3.5-5.0); Albumin/Globulin Ratio 1.4 (1.1-1.8); Alkaline Phosphatase 81 U/L (38-126); Aspartate Amino Transferase 21 U/L (14-36); Bilirubin,Total 0.3 mg/dl (0.2-1.3); Blood Urea Nitrogen 32 mg/dl (7-17); Carbon Dioxide 16 mmol/L (22.0-30.0); Chloride 112 mmol/L (98-107); Creatinine Clearance Estimated 25 mL/min (50-200); Estimated Glomerular Filt Rate 20 ml/min (>60); GFR (African American) 24 ML/MIN (>60); Globulin 2.7 g/dL (1.3-3.2); Magnesium 1.6 mg/dl (1.6-2.3); Phosphorous 3.5 mg/dl (2.5-4.5); Sodium 140 mmol/L (136-145); Total Protein,Serum 6.4 g/dl (6.3-8.2)
[2021-06-10 07:04] LABS: Calcium 5.8 mg/dl (8.4-10.2); Glucose 48 mg/dl (74-100)
[2021-06-10 07:24] LABS: POC Glucose,Bedside 53 (70-110)
[2021-06-10 07:47] VITALS: BP 174/83; PULSE 85; RESP 20; TEMP 36.9; O2SAT 98
[2021-06-10 08:00] VITALS: O2SAT 98
--- NOTE | 2021-06-10 09:07 | HMH.HP ---
*Admission Date: 06/09/21 *Chief complaint: Abdominal pain/nausea/slurred speech *History of present illness: Patient is a 71-year-old presents emergency department for multiple complaints including left arm numbness that has progressed to right arm numbness, abdominal pain, other complaints. Given the patient's history and exam plan to do basic labs, CT head, CT abdomen pelvis, chest x-ray, urinalysis, thyroid studies and reassess. Patient's lab work up significant for hypocalcemia. We sent off an ionized calcium however this will take 2 days it is a send out. Patient given 3 g of calcium gluconate. Patient also has a possible UTI including bacteria and leukocyte esterase on catheterized urine specimen. CT head grossly normal. CT abdomen pelvis shows patient may have an ileus or possible enterocolitis or diarrheal disease. We kept the patient n.p.o. in the emergency department for possible ileus. Patient states she did have some diarrhea the other day. Her abdominal pain is minimal. I started the patient on ceftriaxone for her urinary tract infection. Patient lives by herself alone at home. I does not believe the patient is safe to be discharged home at this time given her mental status. I spoke to Dr. Webster over the phone who agrees to admit this patient to the hospital. I believe the patient needs further resuscitation including future calcium checks. Patient made hemodynamically stable while in the emergency department. Above Per emergency department physician. Patient has a longtime patient of mine with complex medical problems including lupus nephritis and chronic renal disease, she also is essentially wheelchair-bound although does transfer and do some basic self-care activities at home but is globally weak and has chronic nausea. Above symptoms are somewhat new, and I'm most concerned about her neurologic symptoms including slurred speech and somewhat impaired cognition. Of note she has had recurrent urinary tract infections given her immunosuppressed status from her treatment for lupus nephritis. 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 No: Pacemaker Amputation: No Fractures: Yes (right arm compound fracture) - *Social History Last grade of school completed: High school graduate Smoking Status: Never smoker # Packs/Day (cigarettes): 0 #Yrs smoked (if former smoker): 0 Alcohol Intake: never Alcohol Intake Frequency:: other Substance Use Type: denies use *Occupational Status:: retired Housing: house Household Members: none *Travel in the last 8 weeks: None Family Hx:: Cancer Review of Systems - Review of Systems Review of systems:: pertinent systems reviewed and negative unless documented below Cardiopulmonary review of systems negative. GI positive for nausea with some diarrhea, no vomiting. No rash, no joint swelling. No hematuria. Denies new skin changes. Slurred speech reported by daughter, facial drooping reported by daughter, numbness reported by patient on the left side. - *Neurologic Reports confusion, Reports numbness Meds Home Medications Medication Instructions Recorded Confirmed Type levothyroxine 100 mcg tablet 100 mg PO DAILY 90 Days 02/17/18 06/09/21 History buspirone 10 mg tablet 10 mg PO BID 30 Days 06/09/18 06/09/21 History cetirizi
--- NOTE | 2021-06-10 11:19 | HMH.PHAVTE ---
[facility] Pharmacy VTE Monitoring - Patient Demographics Admission date: 06/09/21 Report Date: 06/10/21 Time: 11:19 Allergies/Adverse Reactions: Patient Allergies ANDREWS Inhibitors Allergy (Severe, Verified 05/16/21 08:54) Swelling of Lip/Tongue/Throat latex Allergy (Intermediate, Verified 05/16/21 08:54) Hives morphine Allergy (Intermediate, Verified 05/16/21 08:54) Hives Height: 1.57 m Weight: 73.624 kg Patient Problems: Current Active Problems UTI (urinary tract infection) (Acute) ELINA (acute kidney injury) (Acute) Chronic renal failure, stage 4 (severe) (Chronic) Lupus (Chronic) Hypothyroid (Chronic) Hypocalcemia (Acute) Altered mental status (Acute) - VTE Risk Labs: VTE Related Lab Results Hgb 8.5 g/dL (12.2-16.2) L 06/10/21 06:11 Hct 25.8 % (37.0-47.0) L 06/10/21 06:11 Plt Count 275 K/mm3 (142-424) 06/10/21 06:11 PT 10.9 seconds (10.1-12.5) 06/09/21 13:30 INR 0.92 (0.9-1.1) 06/09/21 13:30 APTT 26.5 seconds (22.8-30.6) 06/09/21 13:30 BUN 32 mg/dl (7-17) H 06/10/21 06:11 Creatinine 2.40 mg/dl (0.52-1.04) H 06/10/21 06:11 Estimated Creat Clear 25 mL/min (50-200) 06/10/21 06:11 VTE Risk Level: Moderate Risk - Prophylaxis VTE Prophylaxis Ordered?: Yes Types of VTE Prophylaxis: TEDS Knee High Location of Applied Device: Bilateral Lower Extremeties
--- NOTE | 2021-06-10 11:32 | HMH.PHAINT ---
MEDICATION RECONCILIATION COMPLETED ON PATIENT USING PATIENT'S OWN RX BOTTLES AND EXTERNAL FILL HISTORY FROM PHARMACY. -DYLLAN ACUNA, ZACD
[2021-06-10 14:29] LABS: POC Glucose,Bedside 127 (70-110)
[2021-06-10 15:14] VITALS: BP 137/71; PULSE 69; RESP 17; TEMP 36.8; O2SAT 97
--- NOTE | 2021-06-10 16:31 | PC.NURSE ---
Pt has slept majority of this shift. [place]ings[place] cath is draining clear, dark yellow urine per gravity. No edema noted. Active bowel sounds in all 4 quads. x1 loose dark brown and green stool noted this shift. Pt's speech has been slurred this shift. She is alert and oriented to person, place and situation, but not time. Lung sounds CTA. Pt is a x2 assist transferring from wheelchair to bed. No other acute changes or complaints at this time. Will continue to monitor.
[2021-06-10 17:01] LABS: POC Glucose,Bedside 114 (70-110)
[2021-06-10 20:00] VITALS: BP 144/77; PULSE 72; RESP 18; TEMP 36.6; O2SAT 97
[2021-06-10 21:03] LABS: POC Glucose,Bedside 89 (70-110)
--- NOTE | 2021-06-11 03:55 | PC.NURSE ---
No acute changes this shift. Pt has slept well. [place] is draining clear, yellow urine. Pt is room air with stats >90's. Pt is A/O x4. New IV inserted #20 right wrist with LR @ 75ml/hr. BS active x4. Lungs CTA. Pt is able to make needs known to staff, call light within reach, VSS, no concerns at this time.
[2021-06-11 04:00] VITALS: BP 129/66; PULSE 81; RESP 18; TEMP 36.9; O2SAT 97
[2021-06-11 05:00] VITALS: BMI 31.2
[2021-06-11 05:31] LABS: POC Glucose,Bedside 82 (70-110)
--- NOTE | 2021-06-11 06:18 | PC.NURSE ---
pt was rechecked on her weight, we made sure all pillows, extra blankets, and hodges bag was taken off the bed, and we obtained the same weight twice.
[2021-06-11 07:47] VITALS: BP 154/70; PULSE 86; RESP 18; TEMP 37; O2SAT 95
--- NOTE | 2021-06-11 08:53 | HMH.DCSUM ---
General - General Admission date:: 06/09/21 Discharge date: 06/11/21 HPI HPI: Patient is a 71-year-old presents emergency department for multiple complaints including left arm numbness that has progressed to right arm numbness, abdominal pain, other complaints. Given the patient's history and exam plan to do basic labs, CT head, CT abdomen pelvis, chest x-ray, urinalysis, thyroid studies and reassess. Patient's lab work up significant for hypocalcemia. We sent off an ionized calcium however this will take 2 days it is a send out. Patient given 3 g of calcium gluconate. Patient also has a possible UTI including bacteria and leukocyte esterase on catheterized urine specimen. CT head grossly normal. CT abdomen pelvis shows patient may have an ileus or possible enterocolitis or diarrheal disease. We kept the patient n.p.o. in the emergency department for possible ileus. Patient states she did have some diarrhea the other day. Her abdominal pain is minimal. I started the patient on ceftriaxone for her urinary tract infection. Patient lives by herself alone at home. I does not believe the patient is safe to be discharged home at this time given her mental status. I spoke to Dr. Webster over the phone who agrees to admit this patient to the hospital. I believe the patient needs further resuscitation including future calcium checks. Patient made hemodynamically stable while in the emergency department. Above Per emergency department physician. Patient has a longtime patient of mine with complex medical problems including lupus nephritis and chronic renal disease, she also is essentially wheelchair-bound although does transfer and do some basic self-care activities at home but is globally weak and has chronic nausea. Above symptoms are somewhat new, and I'm most concerned about her neurologic symptoms including slurred speech and somewhat impaired cognition. Of note she has had recurrent urinary tract infections given her immunosuppressed status from her treatment for lupus nephritis. Hospital Course Hospital Course: Patient was admitted. Because of her persistent slurred speech and high risk for vascular disease MRI of the brain was done which revealed nothing acute, evidence of old lacunar infarcts and microvascular disease which is certainly not surprising. Patient was found to have an E. coli urinary tract infection but sensitivities were agreeable with ceftriaxone and this was given over her hospital stay. She has felt much better, and this morning her speech slurring has resolved and she is much more active. Chronic kidney disease certainly was concerning. Creatinine on admission was 2.6, declined to 2.4. This morning she was doing better, more active. Wished to be discharged home. Plan will be to discharge her home. We will send prescription for antibiotics for pharmacy pickup today. I will use cefdinir 300 twice daily for a week given her sensitivity profiles. I plan to see her in my office in [place] the next week for close follow-up. She will continue her other medications. Objective Vital signs: Temp Pulse Resp BP Pulse Ox 98.6 F 86 18 154/70 H 95 06/11/21 07:47 06/11/21 07:47 06/11/21 07:47 06/11/21 07:47 06/11/21 07:47 no acute distress - *Routine HEENT Exam Head: Present: normocephalic Eye: Present: EOMI, PERRL ENT: Present: mucous membranes moist - *Routine Neck Exam Present: supple - *Routine Respiratory Exam Present: CTA bilaterally - *Routine Cardiovascular Exam Present: RRR, murmur Comments: Previously noted holosystolic murmur. - *Routine Abdominal Exam Present: soft, normoactive bowel sounds. Absent: tenderness - *Routine Extremities Exam Absent: cyanosis, clubbing, edema - *Routine Skin Exam Present: warm. Absent: rash - *Routine Neurological Exam Present: alert, oriented X3 Remains weak but more at baseline. Speech slurring has resolved.
--- NOTE | 2021-06-11 09:05 | PC.NURSE ---
Pt was able to position herself independently to side of bed. W/ use of walker, which she states she uses @ home as well, pt was able to ambulate independently supervised by staff from side of bed to recliner (about 6 ft) w/o safety concerns. Pt currently sitting in recliner w/ call barney w/in reach. No further needs @ this time. [place]ingsworth cath removed by Alejandra Villanueva RN , waiting on pt to void before she is discharge.
--- NOTE | 2021-06-11 10:00 | PC.NURSE ---
Pt discharged at this time. Accompanied down to vehicle by 2nd floor staff. Pt home meds and belonging given to granddaughter.
[2021-06-12 14:26] LABS: Calcium, Ionized <3.0 mg/dL (4.5-5.6)
== END 2021-06-11 09:55 | disposition home or self-care (01) ==
LOC: ER 14:33 → 2ND 18:27
PROVIDERS: Admitting Provider Internal Medicine Adolescent Medicine; Emergency Provider Emergency Medicine; PCP Internal Medicine Adolescent Medicine; Visit Provider Internal Medicine Adolescent Medicine
DX: N39.0 Urinary tract infection, site not specified (principal); N18.4 Chronic kidney disease, stage 4 (severe); N17.9 Acute kidney failure, unspecified; E83.51 Hypocalcemia; Z20.822 Contact with and (suspected) exposure to COVID-19; M32.15 Tubulo-interstitial nephropathy in systemic lupus erythematosus
CPT/HCPCS: 70450; 70551; 74176; 80053; 81001; 82272; 82330; 82803; 82962; 83605; 83690; 83735; 84100; 84484; 85025; 85610; 85730; 87086; 87088; 87186; 93005; 96365; 96367; 99285; 99291; G0328; G0378; U0003

== ENCOUNTER → 2021-07-20 08:00 | Outpatient (CLI) | payer MEDICARE, MEDICAID, SELFPAY ==
[2021-07-21 10:49] LABS: Basophils # 0.1 K/mm3 (0-0.2); Basophils % 1.4 % (0.1-2.0); Eosinophils # 0.1 K/mm3 (0.0-0.4); Hematocrit 27.5 % (37.0-47.0); Hemoglobin 8.6 g/dL (12.2-16.2); Lymphocytes # 0.9 K/mm3 (0.7-4.5); Lymphocytes % 15.4 % (10-50); Mean Corpuscular HGB Conc 31.1 g/dL (31.8-35.4); Mean Corpuscular Hemoglobin 27.4 pg (27.0-31.2); Mean Platelet Volume 9.2 fl (7.4-10.4); Monocytes # 0.4 K/mm3 (0.1-1.0); Neutrophils # 4.3 K/mm3 (1.8-7.8); Neutrophils % 75.3 % (37.0-80.0); Platelet Count 282 K/mm3 (142-424); Red Blood Count 3.13 M/mm3 (4.20-5.40); White Blood Count 5.7 K/mm3 (4.8-10.8)
[2021-07-21 11:13] LABS: Alanine Aminotransferase 9 U/L (12-78); Albumin Level 3.8 g/dl (3.5-5.0); Albumin/Globulin Ratio 1.6 (1.1-1.8); Alkaline Phosphatase 66 U/L (38-126); Anion Gap 17.6 mEq/L (5-15); Aspartate Amino Transferase 20 U/L (14-36); Bilirubin,Total 0.3 mg/dl (0.2-1.3); Blood Urea Nitrogen 40 mg/dl (7-17); Calcium 6.6 mg/dl (8.4-10.2); Carbon Dioxide 20 mmol/L (22.0-30.0); Chloride 109 mmol/L (98-107); Chol/HDL Ratio 4.6 (1-3.5); Cholesterol 187 mg/dl (140-200); Estimated Glomerular Filt Rate 18 ml/min (>60); GFR (African American) 22 ML/MIN (>60); Globulin 2.4 g/dL (1.3-3.2); Glucose 88 mg/dl (74-100); HDL Cholesterol 41 mg/dl (40-60); Lipase 164 U/L (23-300); Phosphorous 3.8 mg/dl (2.5-4.5); Potassium 5.6 mmoL/L (3.5-5.1); Sodium 141 mmol/L (136-145); Total Protein,Serum 6.2 g/dl (6.3-8.2); Triglycerides 193 mg/dl (30-150); VLDL Cholesterol 39 mg/dL (0-40)
[2021-07-21 11:23] LABS: NT Pro Brain Natriuretic Pep. 324 pg/mL (0-125)
[2021-07-21 11:24] LABS: Direct LDL Cholesterol 86.57 mg/dL (100-129)
[2021-07-21 11:45] LABS: Thyroid Stimulating Hormone 2.63 uIU/mL (0.465-4.68)
== END ==
PROVIDERS: Visit Provider Internal Medicine Adolescent Medicine
DX: R11.0 Nausea (principal); I12.9 Hypertensive chronic kidney disease with stage 1 through stage 4 chronic kidney disease, or unspecified chronic kidney disease; N18.4 Chronic kidney disease, stage 4 (severe); E03.9 Hypothyroidism, unspecified; R79.89 Other specified abnormal findings of blood chemistry; R06.09 Other forms of dyspnea
CPT/HCPCS: 80053; 80061; 83690; 83880; 84100; 84443; 85025

== ENCOUNTER 2021-08-08 10:37 | Outpatient (CLI) | payer MEDICARE, MEDICAID, SELFPAY ==
[2021-08-08 11:11] VITALS: BP 102/47; PULSE 77; RESP 17; TEMP 36.4; O2SAT 97
[2021-08-08 11:48] VITALS: BP 110/51; PULSE 72; RESP 17; TEMP 36.6; O2SAT 98
== END 2021-08-08 11:50 | disposition home or self-care (01) ==
LOC: INF 10:40
PROVIDERS: PCP Internal Medicine Adolescent Medicine; Visit Provider Internal Medicine Adolescent Medicine
DX: D64.9 Anemia, unspecified (principal)
CPT/HCPCS: 96365; Q0138

== ENCOUNTER 2021-08-15 10:14 | Outpatient (CLI) | payer MEDICARE, MEDICAID, SELFPAY ==
[2021-08-15 11:45] VITALS: BP 132/71; BP 145/79; PULSE 81; PULSE 82; RESP 17; TEMP 36.9; TEMP 37; O2SAT 97; O2SAT 98
== END 2021-08-15 11:47 | disposition home or self-care (01) ==
LOC: INF 10:15
PROVIDERS: PCP Internal Medicine Adolescent Medicine; Visit Provider Internal Medicine Adolescent Medicine
DX: D50.0 Iron deficiency anemia secondary to blood loss (chronic) (principal)
CPT/HCPCS: 96374; Q0138

== ENCOUNTER → 2021-09-07 09:05 | Outpatient (POV) | payer MEDICARE, MEDICAID, SELFPAY | PROVIDERS: Visit Provider Audiologist | DX: Z00.00 Encounter for general adult medical examination without abnormal findings (principal) ==

== ENCOUNTER → 2021-10-17 12:29 | Outpatient (CLI) | payer MEDICARE, MEDICAID, SELFPAY ==
--- NOTE | 2021-10-17 12:32 | MM_ITS ---
PROCEDURE INFORMATION: Exam: MG Bilateral Screening 3D Mammography Exam date and time: 10/17/2021 12:32 PM Age: 71 years old Clinical indication: Encounter for screening mammogram for malignant neoplasm of breast TECHNIQUE: Imaging protocol: Bilateral screening tomosynthesis and 2D mammography including computer-aided detection (CAD) when performed. COMPARISON: 1. MG MM DIG SCREENING MAMM BI W/CAD 09/13/2020 9:29 AM 2. MG SCBI MM Dig screening mamm BI w/CAD 05/07/2018 9:50 AM FINDINGS: MAMMOGRAPHY: Breast composition: The breast tissue is heterogeneously dense, which may obscure small masses. Mass: None. Architectural distortion: None. Calcifications: No suspicious calcifications. Asymmetric density: None. Skin thickening: None. Axillary adenopathy: None. IMPRESSION: No mammographic evidence of malignancy. Annual screening is recommended unless otherwise clinically indicated. ASSESSMENT: BI-RADS Category 1: Negative
== END ==
PROVIDERS: PCP Internal Medicine Adolescent Medicine; Visit Provider Internal Medicine Adolescent Medicine
DX: Z12.31 Encounter for screening mammogram for malignant neoplasm of breast (principal)
CPT/HCPCS: 77063; 77067

== ENCOUNTER → 2021-11-30 10:05 | Outpatient (CLI) | payer MEDICARE, MEDICAID, SELFPAY ==
[2021-11-30 10:10] LABS: Microscopic, Urine URINE MICROSCOPIC (MICROSCOPIC)
[2021-11-30 10:40] LABS: Basophils # 0.1 K/mm3 (0-0.2); Basophils % 1.2 % (0.1-2.0); Eosinophils # 0.1 K/mm3 (0.0-0.4); Eosinophils % 1.5 % (0.1-12.0); Hemoglobin 8.5 g/dL (12.2-16.2); Lymphocytes # 0.9 K/mm3 (0.7-4.5); Lymphocytes % 18.6 % (10-50); Mean Corpuscular HGB Conc 31.4 g/dL (31.8-35.4); Mean Corpuscular Hemoglobin 28.5 pg (27.0-31.2); Mean Corpuscular Volume 90.5 fl (81-99); Mean Platelet Volume 8.2 fl (7.4-10.4); Monocytes # 0.3 K/mm3 (0.1-1.0); Monocytes % 6.3 % (1.7-9.3); Neutrophils # 3.6 K/mm3 (1.8-7.8); Neutrophils % 72.5 % (37.0-80.0); Platelet Count 293 K/mm3 (142-424); Red Blood Count 2.98 M/mm3 (4.20-5.40)
[2021-11-30 10:55] LABS: Appearance,Urine CLOUDY (Clear); Bilirubin,Urine Negative (Negative); Blood, Urine TRACE-I (Negative); Color,Urine YELLOW (Yellow); Glucose,Urine (UA) Negative (Negative); Ketones,Urine Negative (Negative); Leukocyte Esterase,Urine 2+ (Negative); Nitrate,Urine Negative (Negative); Protein,Urine 2+ (Negative); Urobilinogen,Urine 0.2 EU/dl (0.2)
[2021-11-30 11:08] LABS: Albumin Level 4.1 g/dl (3.5-5.0); Anion Gap 16.4 mEq/L (5-15); Blood Urea Nitrogen 41 mg/dl (7-17); Calcium 7.5 mg/dl (8.4-10.2); Carbon Dioxide 18 mmol/L (22.0-30.0); Chloride 108 mmol/L (98-107); Estimated Glomerular Filt Rate 17 ml/min (>60); GFR (African American) 21 ML/MIN (>60); Glucose 93 mg/dl (74-100); Potassium 5.4 mmoL/L (3.5-5.1); Sodium 137 mmol/L (136-145)
[2021-11-30 11:36] LABS: 25-OH Vitamin D, Total 38.6 ng/mL (30-100)
[2021-11-30 13:09] LABS: Creatinine,Urine Random 60 mg/dL (Not Estab.)
== END ==
PROVIDERS: Visit Provider Internal Medicine Nephrology
DX: M32.10 Systemic lupus erythematosus, organ or system involvement unspecified (principal); N18.30 Chronic kidney disease, stage 3 unspecified; E55.9 Vitamin D deficiency, unspecified
CPT/HCPCS: 36415; 80069; 81001; 82306; 82570; 83970; 84155; 85025; 87086

== ENCOUNTER → 2021-12-04 13:04 | Outpatient (POV) | payer MEDICARE, MEDICAID, SELFPAY | PROVIDERS: Visit Provider Internal Medicine Nephrology | DX: Z00.00 Encounter for general adult medical examination without abnormal findings (principal) ==

== ENCOUNTER → 2022-02-22 08:58 | Outpatient (CLI) | payer MEDICARE, MEDICAID, SELFPAY ==
[2022-02-22 09:27] LABS: Basophils # 0.1 K/mm3 (0-0.2); Basophils % 2.3 % (0.1-2.0); Eosinophils # 0.2 K/mm3 (0.0-0.4); Hematocrit 26.4 % (37.0-47.0); Hemoglobin 8.1 g/dL (12.2-16.2); Lymphocytes # 0.7 K/mm3 (0.7-4.5); Lymphocytes % 19.9 % (10-50); Mean Corpuscular HGB Conc 30.7 g/dL (31.8-35.4); Mean Corpuscular Hemoglobin 27.5 pg (27.0-31.2); Mean Corpuscular Volume 89.7 fl (81-99); Mean Platelet Volume 7.9 fl (7.4-10.4); Monocytes # 0.3 K/mm3 (0.1-1.0); Monocytes % 7.4 % (1.7-9.3); Neutrophils # 2.5 K/mm3 (1.8-7.8); Neutrophils % 65.5 % (37.0-80.0); Platelet Count 394 K/mm3 (142-424); Red Blood Count 2.95 M/mm3 (4.20-5.40); Red Cell Distribution Width 14.8 % (11.5-17.5); White Blood Count 3.7 K/mm3 (4.8-10.8)
[2022-02-22 10:43] LABS: Albumin Level 3.7 g/dl (3.5-5.0); Anion Gap 16.4 mEq/L (5-15); Blood Urea Nitrogen 37 mg/dl (7-17); Calcium 8.2 mg/dl (8.4-10.2); Carbon Dioxide 22 mmol/L (22.0-30.0); Chloride 105 mmol/L (98-107); Estimated Glomerular Filt Rate 17 ml/min (>60); GFR (African American) 21 ML/MIN (>60); Glucose 90 mg/dl (74-100); Phosphorous 4.8 mg/dl (2.5-4.5); Potassium 4.4 mmoL/L (3.5-5.1); Sodium 139 mmol/L (136-145)
[2022-02-22 12:15] LABS: Iron 90 ug/dL (37-170)
[2022-02-22 12:24] LABS: Total Iron Binding Capacity 212 ug/dL (265-497)
[2022-02-22 12:51] LABS: Ferritin 461 ng/ml (11.1-264)
== END ==
PROVIDERS: Internal Medicine Nephrology; PCP Internal Medicine Adolescent Medicine; Visit Provider Psychiatry & Neurology Neurology
DX: N18.4 Chronic kidney disease, stage 4 (severe) (principal); D63.1 Anemia in chronic kidney disease
CPT/HCPCS: 36415; 80069; 82728; 83540; 83550; 85025

== ENCOUNTER → 2022-03-05 12:15 | Outpatient (POV) | payer MEDICARE, MEDICAID, SELFPAY | PROVIDERS: Visit Provider Internal Medicine Nephrology | DX: Z00.00 Encounter for general adult medical examination without abnormal findings (principal) ==

== ENCOUNTER 2022-03-29 08:43 | Outpatient (CLI) | payer MEDICARE, MEDICAID, SELFPAY ==
[2022-03-29 09:45] VITALS: BP 99/53; PULSE 82; RESP 16; O2SAT 99
== END 2022-03-29 09:45 | disposition home or self-care (01) ==
LOC: INF 08:45
PROVIDERS: PCP Internal Medicine Adolescent Medicine; Visit Provider Internal Medicine Nephrology
DX: N18.4 Chronic kidney disease, stage 4 (severe) (principal); D63.1 Anemia in chronic kidney disease
CPT/HCPCS: 96372; J0885

== ENCOUNTER 2022-05-01 09:32 | Outpatient (CLI) | payer MEDICARE, MEDICAID, SELFPAY ==
[2022-05-01 09:44] VITALS: BP 126/81; PULSE 81; TEMP 36.4; O2SAT 99
[2022-05-01 09:53] VITALS: BP 124/82; PULSE 83; TEMP 36.5; O2SAT 99
== END 2022-05-01 09:53 | disposition home or self-care (01) ==
LOC: INF 09:34
PROVIDERS: PCP Internal Medicine Adolescent Medicine; Visit Provider Internal Medicine Nephrology
DX: D63.1 Anemia in chronic kidney disease (principal); N18.4 Chronic kidney disease, stage 4 (severe)
CPT/HCPCS: 96372; J0885

== ENCOUNTER 2022-05-17 11:36 | Inpatient (IN) | payer MEDICARE, MEDICAID, SELFPAY ==
[2022-05-17 11:40] VITALS: BMI 26.5
--- NOTE | 2022-05-17 11:52 | PC.NURSE ---
pt arrived to the floor at this time
--- NOTE | 2022-05-17 12:00 | HMH.PHAINT ---
MEDICATION RECONCILIATION COMPLETED ON PATIENT USING EXTERNAL FILL HISTORY FROM PHARMACY. -DYLLAN ACUNA, ZACD
[2022-05-17 12:06] VITALS: BP 163/97; PULSE 116; RESP 17; TEMP 36.7; O2SAT 98
[2022-05-17 12:25] LABS: Influenza A, PCR Not Detected (NotDetected); Influenza B, PCR Not Detected (NotDetected)
[2022-05-17 12:50] LABS: Coronavirus 19, PCR Detected (NotDetected)
[2022-05-17 13:14] LABS: Basophils % 0.7 % (0.1-2.0); Chloride 104 mmol/L (98-107); Eosinophils % 0.9 % (0.1-12.0); Hematocrit 31.2 % (37.0-47.0); Hemoglobin 10.1 g/dL (12.2-16.2); Lymphocytes # 0.3 K/mm3 (0.7-4.5); Mean Corpuscular HGB Conc 32.4 g/dL (31.8-35.4); Mean Corpuscular Hemoglobin 28.9 pg (27.0-31.2); Mean Corpuscular Volume 89.3 fl (81-99); Mean Platelet Volume 8.7 fl (7.4-10.4); Monocytes # 0.2 K/mm3 (0.1-1.0); Monocytes % 3.9 % (1.7-9.3); Neutrophils # 4.6 K/mm3 (1.8-7.8); Neutrophils % 88.6 % (37.0-80.0); Platelet Count 294 K/mm3 (142-424); Red Blood Count 3.49 M/mm3 (4.20-5.40); Red Cell Distribution Width 15.5 % (11.5-17.5); Sodium 134 mmol/L (136-145); White Blood Count 5.2 K/mm3 (4.8-10.8)
[2022-05-17 13:16] LABS: Blood Urea Nitrogen 66 mg/dl (7-17); Creatinine Clearance Estimated 10 mL/min (50-200); Estimated Glomerular Filt Rate 8 ml/min (>60); GFR (African American) 10 ML/MIN (>60); MANUAL DIFFERENTIAL MANUAL DIFFERENTIAL (MANUAL DIFF)
[2022-05-17 13:17] LABS: Alanine Aminotransferase 8 U/L (12-78); Albumin Level 4.6 g/dl (3.5-5.0); Albumin/Globulin Ratio 1.4 (1.1-1.8); Alkaline Phosphatase 91 U/L (38-126); Anion Gap 25.3 mEq/L (5-15); Aspartate Amino Transferase 24 U/L (14-36); Bilirubin,Total 0.4 mg/dl (0.2-1.3); Calcium 8.8 mg/dl (8.4-10.2); Carbon Dioxide 11 mmol/L (22.0-30.0); Globulin 3.3 g/dL (1.3-3.2); Total Protein,Serum 7.9 g/dl (6.3-8.2)
[2022-05-17 13:23] LABS: Glucose 40 mg/dl (74-100)
[2022-05-17 13:24] LABS: Potassium 6.3 mmoL/L (3.5-5.1)
--- NOTE | 2022-05-17 13:45 | XR_ITS ---
FINAL REPORT CLINICAL HISTORY: COUGH, COVID + COMPARISON: 08/08/2020 FINDINGS: SINGLE-VIEW CHEST The heart size is normal. The mediastinum is normal. There is mild bibasilar atelectasis. There is no pneumothorax. There are postoperative changes in the right thorax. Note is made of dextroscoliosis.. IMPRESSION: Mild bibasilar atelectasis. Reviewed, Interpreted and Dictated by Eduardo Maloney III, MD Transcribed by Qian Mars Authenticated and [facility]
--- NOTE | 2022-05-17 13:50 | HMH.PHAVTE ---
[facility] Pharmacy VTE Monitoring - Patient Demographics Admission date: 05/17/22 Report Date: 05/17/22 Time: 13:50 Allergies/Adverse Reactions: Patient Allergies ANDREWS Inhibitors Allergy (Severe, Verified 05/17/22 13:14) Swelling of Lip/Tongue/Throat latex Allergy (Intermediate, Verified 05/17/22 13:14) Hives morphine Allergy (Intermediate, Verified 05/17/22 13:14) Hives Height: 1.52 m Weight: 61.7 kg - VTE Risk Labs: VTE Related Lab Results Hgb 10.1 g/dL (12.2-16.2) L 05/17/22 12:15 Hct 31.2 % (37.0-47.0) L 05/17/22 12:15 Plt Count 294 K/mm3 (142-424) 05/17/22 12:15 BUN 66 mg/dl (7-17) H 05/17/22 12:15 Creatinine 5.10 mg/dl (0.52-1.04) H 05/17/22 12:15 Estimated Creat Clear 10 mL/min (50-200) 05/17/22 12:15 - Prophylaxis VTE Prophylaxis Ordered?: Yes Types of VTE Prophylaxis: TEDS Knee High Location of Applied Device: Bilateral Lower Extremeties
[2022-05-17 13:51] LABS: Eosinophils % 1 % (0-3); Lymphocytes % 7 % (10-50); Monocytes % 8 % (2-9); Neutrophils % 84 % (42-76); Total Cells Counted 100
[2022-05-17 13:53] LABS: RBC Morphology Normal
[2022-05-17 13:55] LABS: Platelet Estimate Normal
--- NOTE | 2022-05-17 14:28 | PC.NURSE ---
Did make Dr. Webster aware of pt being covid positive, crea of 5.1, glucose of 40, although pt asymptomatic other than shaking, pt able to eat lunch and fs when checked was 110, also k was 6.3. Called and made Phu Queen APRN aware as well, as Dr. Webster referred ivf order to Phu Queen APRN. Current rate is NS @ 75 ml/hr.
[2022-05-17 14:30] LABS: POC Glucose,Bedside 110 (70-110)
[2022-05-17 14:41] LABS: Lactic Acid 0.9 mmol/L (0.7-2.1)
[2022-05-17 16:00] VITALS: BP 141/79; PULSE 90; PULSE 92; RESP 16; TEMP 36.3; O2SAT 100
--- NOTE | 2022-05-17 17:24 | HMH.HP ---
*Admission Date: 05/17/22 <Gaby Gari 05/17/22 17:43> *Chief complaint: weakness, cough and dysuria <Gaby Gari 05/17/22 17:43> *History of present illness: 72 year old female with SLE with lupus nephritis, RA, CKD stage 4, HTN, HLD, anxiety, depression and GERD presented to PCP office yesterday for weakness, dysuria and cough. Found to have UTI, given rocephin IM and levaquin. Labs were drawn which resulted this morning, creatinine of 4 with baseline 2.6, K 6.3. WBC normal. Patient advised to come to PCP office this where she reported worsening weakness and malaise. + diarrhea. + N, no vomiting. Appetite decreased. Continues to c/o dysuria and urinary freq. + cough, SOA with exertion. No fevers. Daughter who is a [employer] reports progressive weakness over the last several months, weight loss and increased tremors. Patient lives alone with assistance of family who lives nearby. Direct admitted for IV hydration, antibiotics and further evaluation. <GarLiliana 05/17/22 17:43> [facility] History I have reviewed the patient's past medical history: Yes <Gaby Gari 05/17/22 17:43> Medical History: Reports:: Gastroesophageal Reflux Disease(GERD), Hyperlipidemia, Hypertension, Lung Disease, Renal Disease Denies:: Asthma, Cancer, Chronic Obstructive Pulmonary Disease (COPD), Diabetes Mellitus Type 1, Diabetes Mellitus Type 2, Internal Pacemaker, Seizures <GarLiliana 05/17/22 17:43> *Have you ever received a pneumonia vaccine?: Yes <GarLiliana 05/17/22 17:43> *Have you received a flu vaccine this season?: Yes <GarLiliana 05/17/22 17:43> Other Medical History: Reports: Anemia, Arthritis, Blood Transfusion Reaction, Hypothyroidism, Thyroid Disease, Other <Liliana Gar 05/17/22 17:43> Laterality Cases: Right: Other <GarLiliana 05/17/22 17:43> Other Surgeries: Yes: Cardiac Catheterization, Hysterectomy-Total, Other. No: Pacemaker <Liliana Gar 05/17/22 17:43> Amputation: No <Liliana Gar 05/17/22 17:43> Fractures: Yes (right arm compound fracture) <Gaby Gari 05/17/22 17:43> - *Social History Smoking Status: Never smoker <Gaby Gari 05/17/22 17:43> # Packs/Day (cigarettes): 0 <Liliana Gar 05/17/22 17:43> #Yrs smoked (if former smoker): 0 <Gaby Gari 05/17/22 17:43> Alcohol Intake: never <Gaby Gari 05/17/22 17:43> Alcohol Intake Frequency:: other <Gaby Gari 05/17/22 17:43> Substance Use Type: denies use <CongLiliana 05/17/22 17:43> *Occupational Status:: other <CongLiliana 05/17/22 17:43> Housing: house <CongLiliana 05/17/22 17:43> Household Members: none <Gaby Gari 05/17/22 17:43> *Travel in the last 8 weeks: None <Gaby Gari 05/17/22 17:43> Family Hx:: Thyroid Disorder <CongLiliana 05/17/22 17:43> Review of Systems - Review of Systems Review of systems:: pertinent systems reviewed and negative unless documented below <Liliana Gar 05/17/22 17:43> - Constitutional Reports fatigue, Reports lack of energy, Reports malaise, Reports weakness, Reports weight loss <CongLiliana 05/17/22 17:43> - *Respiratory Reports cough, Reports shortness of breath <CongLiliana 05/17/22 17:43> - *Gastrointestinal Reports loose stools, Reports nausea <CongLiliana 05/17/22 17:43> - *Genitourinary Reports painful urination <CongLiliana 05/17/22 17:43> - *Musculoskeletal Reports joint pain <CongLiliana 05/17/22 17:43> - *Neurologic Reports tremor(s) <CongLiliana 05/17/22 17:43> - Psychiatric Reports anxiety <CongLiliana 05/17/22 17:43> Meds Home Medications Medication Instructions Recorded Confirmed Type levothyroxine 100 mcg tablet 100 mcg PO DAILY 90 Days 02/17/18 05/17/22 History buspirone 10 mg tablet 10 mg PO BID 30 Days 06/09/18 05/17/22 History cetirizine 10 mg capsule 10 mg PO DAILY cap 12/24/19 05/17/22 History hydroxychloroquine 200 mg tablet 200 mg PO BID tab 12/24/19 05/17/22 History Sodium Bicarbonate 1,300 mg PO TID 05/31/2005/02
[2022-05-17 20:00] VITALS: BP 136/55; PULSE 83; PULSE 90; RESP 16; TEMP 36.9; O2SAT 97
[2022-05-18] VITALS (8 sets, daily range): BP systolic 98–132; BP diastolic 43–69; PULSE 60–90; RESP 16–26; TEMP 36.7–37.1; O2SAT 91–96; BMI 28.3
[2022-05-18 07:05] LABS: Chloride 113 mmol/L (98-107); Sodium 135 mmol/L (136-145)
[2022-05-18 07:08] LABS: Alanine Aminotransferase 6 U/L (12-78); Albumin Level 3.3 g/dl (3.5-5.0); Albumin/Globulin Ratio 1.1 (1.1-1.8); Alkaline Phosphatase 65 U/L (38-126); Anion Gap 19.3 mEq/L (5-15); Aspartate Amino Transferase 21 U/L (14-36); Bilirubin,Total 0.2 mg/dl (0.2-1.3); Blood Urea Nitrogen 64 mg/dl (7-17); Creatinine Clearance Estimated 12 mL/min (50-200); Estimated Glomerular Filt Rate 10 ml/min (>60); GFR (African American) 12 ML/MIN (>60); Globulin 2.9 g/dL (1.3-3.2); Total Protein,Serum 6.2 g/dl (6.3-8.2)
[2022-05-18 07:09] LABS: Basophils % 0.7 % (0.1-2.0); Calcium 7.6 mg/dl (8.4-10.2); Eosinophils % 0.5 % (0.1-12.0); Glucose 64 mg/dl (74-100); Hematocrit 24.3 % (37.0-47.0); Lymphocytes # 0.5 K/mm3 (0.7-4.5); Lymphocytes % 11.3 % (10-50); Mean Corpuscular Hemoglobin 28.6 pg (27.0-31.2); Mean Corpuscular Volume 89.5 fl (81-99); Mean Platelet Volume 8.9 fl (7.4-10.4); Monocytes # 0.2 K/mm3 (0.1-1.0); Monocytes % 4.6 % (1.7-9.3); Platelet Count 257 K/mm3 (142-424); Red Blood Count 2.72 M/mm3 (4.20-5.40); Red Cell Distribution Width 15.7 % (11.5-17.5); White Blood Count 4.8 K/mm3 (4.8-10.8)
[2022-05-18 07:15] LABS: Carbon Dioxide 9 mmol/L (22.0-30.0); Potassium 6.3 mmoL/L (3.5-5.1)
[2022-05-18 07:16] LABS: Hemoglobin 7.8 g/dL (12.2-16.2)
[2022-05-18 07:28] LABS: Magnesium 1.3 mg/dl (1.6-2.3)
--- NOTE | 2022-05-18 07:40 | PC.NURSE ---
Yesenia from lab called with critical labs of CO2, Potassium, Creatinine. Name, and lab values verified x2. notified.
--- NOTE | 2022-05-18 09:45 | PC.NURSE ---
lab called and relayed positive blood culture result. verified name and date of notified
--- NOTE | 2022-05-18 13:27 | PC.WOUNDNOTE ---
shearing and redness
--- NOTE | 2022-05-18 13:48 | PC.NURSE ---
Received report from Cheryle Zacarias at 1300. Rounded and assessed patient. Patient had no complaints.
--- NOTE | 2022-05-18 14:36 | HMH.ACPN2 ---
Internal Medicine - PN: Subj *Date: 05/18/22 *Time: 17:59 Exam Vital signs and Labs for Last 24 Hours: Temp Pulse Resp BP Pulse Ox 98.0 F 88 20 121/54 L 95 05/18/22 12:00 05/18/22 12:00 05/18/22 12:00 05/18/22 12:00 05/18/22 12:00 Laboratory Results - last 24 hr 05/17/22 12:15: Lactate 0.9 05/18/22 05:57: WBC 4.8, RBC 2.72 L, Hgb 7.8 L D, Hct 24.3 L, MCV 89.5, MCH 28.6, MCHC 32.0, RDW 15.7, Plt Count 257, MPV 8.9, Neut % (Auto) 83.0 H, Lymph % (Auto) 11.3, Greer % (Auto) 4.6, Eos % (Auto) 0.5, Baso % (Auto) 0.7, Neut # (Auto) 4.0, Lymph # (Auto) 0.5 L, Greer # (Auto) 0.2, Eos # (Auto) 0.0, Baso # (Auto) 0.0 05/18/22 05:57: Sodium 135 L, Potassium 6.3 H*, Chloride 113 H, Carbon Dioxide 9 L* D, Anion Gap 19.3 H, BUN 64 H, Creatinine 4.30 H, Estimated Creat Clear 12, Estimated GFR 10 L*, Est GFR ( Amer) 12 L*, Glucose 64 L D, Calcium 7.6 L, Total Bilirubin 0.2, AST 21, ALT 6 L, Alkaline Phosphatase 65, Total Protein 6.2 L, Albumin 3.3 L D, Globulin 2.9, Albumin/Globulin Ratio 1.1 05/18/22 05:57: Magnesium 1.3 L I & O for Last 24 hours: Intake & Output 05/15/22 05/16/22 05/17/22 05/18/22 23:59 23:59 23:59 23:59 Intake Total 170 / 170 2390 / 2390 Balance 170 / 170 2390 / 2390 Weight 61.7 kg 65.58 kg Microbiology Reports for the Last 24 Hours: Microbiology 05/17/22 12:15 Blood Blood Culture - Preliminary Assessment and Plan (1) UTI (urinary tract infection) Status: Acute Qualifiers: Urinary tract infection type: acute cystitis Hematuria presence: with hematuria Qualified Code(s): N30.01 - Acute cystitis with hematuria Category: Medical Code(s): N39.0 - Urinary tract infection, site not specified (2) COVID-19 Status: Acute Category: Medical Code(s): U07.1 - COVID-19 (3) Acute on chronic renal failure Status: Acute Qualifiers: Chronic kidney disease stage: stage 4 (severe) Category: Medical Code(s): N17.9 - Acute kidney failure, unspecified; N18.9 - Chronic kidney disease, unspecified (4) Lupus nephritis Status: Chronic Category: Medical Code(s): M32.14 - Glomerular disease in systemic lupus erythematosus (5) ANGE (generalized anxiety disorder) Status: Chronic Category: Medical Code(s): F41.1 - Generalized anxiety disorder (6) Essential (primary) hypertension Status: Chronic Category: Medical Code(s): I10 - Essential (primary) hypertension (7) Mixed hyperlipidemia Status: Acute Category: Medical Code(s): E78.2 - Mixed hyperlipidemia (8) Rheumatoid arthritis Status: Chronic Category: Medical Code(s): M06.9 - Rheumatoid arthritis, unspecified - Assessment and plan all Dx Assessment and Plan for all problems:: 72-year-old female with history of lupus, lupus nephritis, presented to clinic yesterday with severe electrolyte abnormalities, weakness. Admitted for management of dehydration, acute on chronic kidney injury, and subsequent identification of COVID-19. Currently on broad-spectrum antibiotics. Initial cultures this morning show positivity in 1 bottle. Broaden coverage for gram-positive bacteria. Is addressed as follows: COVID-19 -Minimal cough. Due to kidney function, unable to treat with any antivirals. -Continue to monitor. Acute on chronic kidney failure Hyperkalemia Lupus nephritis -Slight improvement this morning with fluid resuscitation. Continue gentle resuscitation. Repeat labs this afternoon. -Kayexalate for hyperkalemia. Monitor every 12hr until improving. -No abnormality on telemetry. -Hold mycophenolate due to kidney injury, resume hydroxychloroquine. DNR Cardiac diet Continues to require inpatient management
[2022-05-18 19:59] LABS: Chloride 114 mmol/L (98-107); Potassium 5.1 mmoL/L (3.5-5.1); Sodium 137 mmol/L (136-145)
[2022-05-18 20:02] LABS: Blood Urea Nitrogen 57 mg/dl (7-17); Creatinine Clearance Estimated 14 mL/min (50-200); Estimated Glomerular Filt Rate 12 ml/min (>60)
[2022-05-18 20:03] LABS: Anion Gap 17.1 mEq/L (5-15); Calcium 7.6 mg/dl (8.4-10.2); Carbon Dioxide 11 mmol/L (22.0-30.0); Glucose 59 mg/dl (74-100)
[2022-05-18 20:10] LABS: GFR (African American) 14 ML/MIN (>60)
[2022-05-19] VITALS (11 sets, daily range): BP systolic 111–153; BP diastolic 61–84; PULSE 55–83; RESP 14–18; TEMP 36.9–38.1; O2SAT 92–97; BMI 27.4
--- NOTE | 2022-05-19 00:29 | PC.NURSE ---
Patient had rectal temperature of 101.0 at 2325, gave acetaminophen per JAN.
--- NOTE | 2022-05-19 04:17 | PC.NURSE ---
Patient is alert and oriented x4. Has rested well this shift. She has had several loose bowel movements. No c/o pain or discomfort. Had a low grade fever of 101.0, acetaminophen admin per MAR. No acute changes this shift. Call light in place and working appropriately.
[2022-05-19 07:35] LABS: Chloride 121 mmol/L (98-107); Potassium 5.9 mmoL/L (3.5-5.1); Sodium 143 mmol/L (136-145)
[2022-05-19 07:37] LABS: Blood Urea Nitrogen 53 mg/dl (7-17); Creatinine Clearance Estimated 15 mL/min (50-200); Estimated Glomerular Filt Rate 14 ml/min (>60); GFR (African American) 17 ML/MIN (>60)
[2022-05-19 07:38] LABS: Alanine Aminotransferase 6 U/L (12-78); Albumin Level 3.2 g/dl (3.5-5.0); Albumin/Globulin Ratio 1.3 (1.1-1.8); Alkaline Phosphatase 33 U/L (38-126); Anion Gap 19.9 mEq/L (5-15); Aspartate Amino Transferase 33 U/L (14-36); Bilirubin,Total 0.6 mg/dl (0.2-1.3); Calcium 7.9 mg/dl (8.4-10.2); Globulin 2.5 g/dL (1.3-3.2); Glucose 65 mg/dl (74-100); Magnesium 1.3 mg/dl (1.6-2.3); Total Protein,Serum 5.7 g/dl (6.3-8.2)
[2022-05-19 07:51] LABS: Carbon Dioxide 8 mmol/L (22.0-30.0)
--- NOTE | 2022-05-19 07:55 | PC.NURSE ---
Spoke with romeo from lab called with a critical lab value of CO2 of 8
--- NOTE | 2022-05-19 08:15 | PC.NURSE ---
Spoke with Darin about co2
--- NOTE | 2022-05-19 08:52 | HMH.ACPN2 ---
Internal Medicine - PN: Subj *Date: 05/19/22 *Time: 08:52 Interval history: Patient is awake, alert, appears extremely fatigued and tired, slightly more than her baseline. She reports some diarrhea, but denies dyspnea or cough. She has been afebrile. She has no oxygen requirement. Exam Vital signs and Labs for Last 24 Hours: Temp Pulse Resp BP Pulse Ox 98.4 F 80 14 152/84 H 92 L 05/19/22 07:57 05/19/22 07:57 05/19/22 07:57 05/19/22 07:57 05/19/22 07:57 Laboratory Results - last 24 hr 05/18/22 19:46: Sodium 137, Potassium 5.1, Chloride 114 H, Carbon Dioxide 11 L, Anion Gap 17.1 H, BUN 57 H, Creatinine 3.80 H, Estimated Creat Clear 14, Estimated GFR 12 L*, Est GFR ( Amer) 14 L*, Glucose 59 L, Calcium 7.6 L 05/19/22 06:58: Sodium 143, Potassium 5.9 H, Chloride 121 H, Carbon Dioxide 8 L* D, Anion Gap 19.9 H, BUN 53 H, Creatinine 3.30 H, Estimated Creat Clear 15, Estimated GFR 14 L*, Est GFR ( Amer) 17 L* D, Glucose 65 L, Calcium 7.9 L, Magnesium 1.3 L, Total Bilirubin 0.6, AST 33 D, ALT 6 L, Alkaline Phosphatase 33 L, Total Protein 5.7 L, Albumin 3.2 L, Globulin 2.5, Albumin/Globulin Ratio 1.3 I & O for Last 24 hours: Intake & Output 05/16/22 05/17/22 05/18/22 05/19/22 11:59 11:59 11:59 11:59 Intake Total 2560 / 2560 2562 / 2562 Output Total 250 / 250 Balance 2560 / 2560 2312 / 2312 Weight 136 lb 0.403 oz 144 lb 9.6 oz 139 lb 11.2 oz Microbiology Reports for the Last 24 Hours: Microbiology 05/17/22 12:15 Blood Blood Culture - Preliminary Narrative: Appears pale, chronically ill. Tired. Lung hdz have rhonchi in her chest anteriorly, abdomen soft. Heart rate regular. Slight tachycardia. Extremities are warm and well-perfused but she is globally very weak. Assessment and Plan (1) UTI (urinary tract infection) Status: Acute Qualifiers: Urinary tract infection type: acute cystitis Hematuria presence: with hematuria Qualified Code(s): N30.01 - Acute cystitis with hematuria Category: Medical Code(s): N39.0 - Urinary tract infection, site not specified (2) COVID-19 Status: Acute Category: Medical Code(s): U07.1 - COVID-19 (3) Acute on chronic renal failure Status: Acute Qualifiers: Chronic kidney disease stage: stage 4 (severe) Category: Medical Code(s): N17.9 - Acute kidney failure, unspecified; N18.9 - Chronic kidney disease, unspecified (4) Lupus nephritis Status: Chronic Category: Medical Code(s): M32.14 - Glomerular disease in systemic lupus erythematosus (5) ANGE (generalized anxiety disorder) Status: Chronic Category: Medical Code(s): F41.1 - Generalized anxiety disorder (6) Essential (primary) hypertension Status: Chronic Category: Medical Code(s): I10 - Essential (primary) hypertension (7) Mixed hyperlipidemia Status: Acute Category: Medical Code(s): E78.2 - Mixed hyperlipidemia (8) Rheumatoid arthritis Status: Chronic Category: Medical Code(s): M06.9 - Rheumatoid arthritis, unspecified - Assessment and plan all Dx Assessment and Plan for all problems:: 1. UTI-await final culture results. On broad-spectrum coverage for staphylococcal and gram-negative organisms. 2. COVID-19 positive test. Seems to be doing well from this perspective. 3. Anemia, given fatigue and evidence of poor perfusion with 1 unit of packed cells today. 4. Acute on chronic renal disease-improving slightly. 5. Patient is globally weak and has multiple comorbidities. Recommended evaluation for skilled care, she is reluctant but agreeable. 6. I reviewed her home medications today and will continue holding those that are indicated.
[2022-05-19 09:06] LABS: Basophils % 0.9 % (0.1-2.0); Eosinophils % 0.7 % (0.1-12.0); Hematocrit 23.2 % (37.0-47.0); Hemoglobin 7.4 g/dL (12.2-16.2); Lymphocytes # 0.5 K/mm3 (0.7-4.5); Lymphocytes % 12.4 % (10-50); Mean Corpuscular Hemoglobin 28.2 pg (27.0-31.2); Mean Platelet Volume 9.7 fl (7.4-10.4); Monocytes # 0.3 K/mm3 (0.1-1.0); Monocytes % 6.8 % (1.7-9.3); Neutrophils # 3.3 K/mm3 (1.8-7.8); Neutrophils % 79.2 % (37.0-80.0); Platelet Count 262 K/mm3 (142-424); Red Blood Count 2.64 M/mm3 (4.20-5.40); Red Cell Distribution Width 15.7 % (11.5-17.5); White Blood Count 4.2 K/mm3 (4.8-10.8)
--- NOTE | 2022-05-19 10:39 | PC.NURSE ---
Spoke with nahum from lab. There is an issue with the account to try ant get blood ordered for her. She is going to call and try to get registration to fix it. I have been notified.
--- NOTE | 2022-05-19 12:05 | PC.NURSE ---
Have attempted to get urine sample multiple times. I have placed a hat in the BSC. She is having BM while urinating. I will continue to try and obtain a UA.
--- NOTE | 2022-05-19 13:23 | PC.NURSE ---
Pt stated that she feels SOB. I placed 1 L of NC on her. After a few mins she stated that it helps her feel better. She was flushed looking I took a oral temp and its 98.6. I took pulse ox on finger it was 96% 1L NC. Will continue to monitor.
--- NOTE | 2022-05-19 14:14 | PC.NURSE ---
Checked on pt she is sleeping in room. Will continue to monitor.
--- NOTE | 2022-05-19 15:37 | PC.NURSE ---
Still attempting to get a urine sample. Pt is still having BM in the sample in the hat. Will continue to monitor and try to obtain sample.
--- NOTE | 2022-05-19 15:53 | PC.NURSE ---
Pt's rectal temp is 100.5. Took covers off pt, and gave tylenol to try and bring fever down. Offered to place cold wash cloth on pt. She refused she stated that she was too cold as it was . Will recheck soon to see if temp will go down.
--- NOTE | 2022-05-19 16:00 | PC.NURSE ---
Pt has had a unremarkable day. She is A/O x4. She is weak and with tremors that are not new. She had a rectal temp of 100, and was given po tylenol as resolution. She has rested on and off today. She stated that she felt a little short of breath her RA o2 was 94%, I placed her on 1L NC for comfort with her o2 at 96%. She is a little anxious being here at the hospital. This was more for comfort. Will continue to monitor pt. No new changes since last assessment.
--- NOTE | 2022-05-19 17:30 | PC.NURSE ---
Spoke to lab to try and confirm pts . They are still trying to fix issue with pts chart to try and order blood. Will continue to monitor pt and will check back with lab about resolution.
--- NOTE | 2022-05-19 18:26 | INFXCTL.NOTE ---
Daughter called to check on mother. We discussed about that Dr. Webster states in his note going to a facility maybe beneficial. She agree's and states that if she has a preference she would like it to [facility]. I told her that the ultimate decision would be up to the pt, and care management if they can get her into the facility. I told her that I would pass information onto care management staff, and
--- NOTE | 2022-05-19 22:13 | PC.NURSE ---
Nataliya in lab called at [phone] to report that she has crossmatched 2 units of blood in case of emergency. Still waiting to hear if the problem with the profile/record has been resolved. Will continue to monitor.
--- NOTE | 2022-05-19 22:36 | PC.NURSE ---
Nimesh Courtney from medical records called, he is unable to resolve the problem at this time. I have spoke with Dr. Webster, he is aware of the delay and is aware of the lab not allowing the blood transfusion unless emergent. Dr. Webster said this case was not emergent and that he is not worried with her having to wait on the blood.
[2022-05-20] VITALS (18 sets, daily range): BP systolic 130–164; BP diastolic 58–103; PULSE 53–80; RESP 16–18; TEMP 35.5–37.2; O2SAT 90–96; BMI 29.1
--- NOTE | 2022-05-20 04:45 | PC.NURSE ---
Patient has rested well this shift with no c/o pain or discomfort. Continues with 1L NC with O2 staying above 90%. Call light in place and working appropriately.
--- NOTE | 2022-05-20 08:38 | HMH.ACPN2 ---
Internal Medicine - PN: Subj *Date: 05/20/22 *Time: 08:38 Interval history: Patient is sleeping. Reports that she feels little bit better than yesterday. Unfortunately blood has not been given yet because of some issues with the electronic medical record and information system is working on this currently. Patient feels less pain. Has been eating a little bit this morning Exam Vital signs and Labs for Last 24 Hours: Temp Pulse Resp BP Pulse Ox 98.7 F 73 18 164/89 H 94 L 05/20/22 07:59 05/20/22 07:59 05/20/22 07:59 05/20/22 07:59 05/20/22 07:59 Laboratory Results - last 24 hr 05/19/22 06:58: WBC 4.2 L, RBC 2.64 L, Hgb 7.4 L, Hct 23.2 L, MCV 88.0, MCH 28.2, MCHC 32.0, RDW 15.7, Plt Count 262, MPV 9.7, Neut % (Auto) 79.2, Lymph % (Auto) 12.4, [place] % (Auto) 6.8, Eos % (Auto) 0.7, Baso % (Auto) 0.9, Neut # (Auto) 3.3, Lymph # (Auto) 0.5 L, [place] # (Auto) 0.3, Eos # (Auto) 0.0, Baso # (Auto) 0.0 05/19/22 09:32: Crossmatch (AHG) See Detail I & O for Last 24 hours: Intake & Output 05/17/22 05/18/22 05/19/22 05/20/22 11:59 11:59 11:59 11:59 Intake Total 2560 / 2560 2562 / 2562 2196 / 2196 Output Total 250 / 250 200 / 200 Balance 2560 / 2560 2312 / 2312 1995 Weight 136 lb 0.403 oz 144 lb 9.6 oz 139 lb 11.2 oz 148 lb 8 oz Microbiology Reports for the Last 24 Hours: Microbiology 05/17/22 12:15 Blood Blood Culture - Preliminary NO GROWTH AFTER 48 HOURS Narrative: Pleasant, talkative. Lungs have rhonchi bilaterally, heart rate regular. Abdomen is soft, very minimal tenderness throughout. Extremities are warm and well-perfused. Assessment and Plan (1) UTI (urinary tract infection) Status: Acute Qualifiers: Urinary tract infection type: acute cystitis Hematuria presence: with hematuria Qualified Code(s): N30.01 - Acute cystitis with hematuria Category: Medical Code(s): N39.0 - Urinary tract infection, site not specified (2) COVID-19 Status: Acute Category: Medical Code(s): U07.1 - COVID-19 (3) Acute on chronic renal failure Status: Acute Qualifiers: Chronic kidney disease stage: stage 4 (severe) Category: Medical Code(s): N17.9 - Acute kidney failure, unspecified; N18.9 - Chronic kidney disease, unspecified (4) Lupus nephritis Status: Chronic Category: Medical Code(s): M32.14 - Glomerular disease in systemic lupus erythematosus (5) ANGE (generalized anxiety disorder) Status: Chronic Category: Medical Code(s): F41.1 - Generalized anxiety disorder (6) Essential (primary) hypertension Status: Chronic Category: Medical Code(s): I10 - Essential (primary) hypertension (7) Mixed hyperlipidemia Status: Acute Category: Medical Code(s): E78.2 - Mixed hyperlipidemia (8) Rheumatoid arthritis Status: Chronic Category: Medical Code(s): M06.9 - Rheumatoid arthritis, unspecified - Assessment and plan all Dx Assessment and Plan for all problems:: Continue therapy for UTI. COVID-19 pneumonitis is stable, no oxygen requirement. Worsening renal function, better with fluids. Watch tomorrow. Cautiously treat hyperkalemia with Kayexalate. Calcium gluconate magnesium today for electrolyte disturbances. PT/OT evaluation with probable skilled care placement if needed. Transfusion for worsening anemia of renal disease able.
[2022-05-20 09:09] LABS: Eosinophils % 0.5 % (0.1-12.0); Hematocrit 23.8 % (37.0-47.0); Hemoglobin 7.8 g/dL (12.2-16.2); Lymphocytes # 0.4 K/mm3 (0.7-4.5); Lymphocytes % 9.9 % (10-50); Mean Corpuscular HGB Conc 32.8 g/dL (31.8-35.4); Mean Corpuscular Hemoglobin 28.5 pg (27.0-31.2); Mean Corpuscular Volume 86.9 fl (81-99); Mean Platelet Volume 9.1 fl (7.4-10.4); Monocytes # 0.2 K/mm3 (0.1-1.0); Monocytes % 4.9 % (1.7-9.3); Neutrophils # 3.6 K/mm3 (1.8-7.8); Neutrophils % 83.7 % (37.0-80.0); Platelet Count 236 K/mm3 (142-424); Red Blood Count 2.74 M/mm3 (4.20-5.40); Red Cell Distribution Width 15.6 % (11.5-17.5); White Blood Count 4.2 K/mm3 (4.8-10.8)
[2022-05-20 09:15] LABS: Chloride 110 mmol/L (98-107); Potassium 4.1 mmoL/L (3.5-5.1); Sodium 136 mmol/L (136-145)
--- NOTE | 2022-05-20 09:17 | PC.NURSE ---
pt refused kayexolate stating that it gives her diarrhea. this rn discussed with pt the medical reason for kayexolate and that diarrhea was a common side effect. she voiced understanding but refused medication.
[2022-05-20 09:18] LABS: Alanine Aminotransferase 8 U/L (12-78); Albumin Level 3.3 g/dl (3.5-5.0); Albumin/Globulin Ratio 1.3 (1.1-1.8); Alkaline Phosphatase 61 U/L (38-126); Anion Gap 16.1 mEq/L (5-15); Aspartate Amino Transferase 28 U/L (14-36); Bilirubin,Total 0.3 mg/dl (0.2-1.3); Blood Urea Nitrogen 35 mg/dl (7-17); Carbon Dioxide 14 mmol/L (22.0-30.0); Creatinine Clearance Estimated 20 mL/min (50-200); Estimated Glomerular Filt Rate 17 ml/min (>60); GFR (African American) 21 ML/MIN (>60); Globulin 2.6 g/dL (1.3-3.2); Total Protein,Serum 5.9 g/dl (6.3-8.2)
[2022-05-20 09:24] LABS: Calcium 7.9 mg/dl (8.4-10.2); Glucose 76 mg/dl (74-100)
--- NOTE | 2022-05-20 10:44 | HMH.ACPN ---
Internal Medicine - PN: Subj *Date: 05/20/22 *Time: 10:44 Exam Vital signs and Labs for Last 24 Hours: Temp Pulse Resp BP Pulse Ox 98.7 F 73 18 164/89 H 94 L 05/20/22 07:59 05/20/22 07:59 05/20/22 07:59 05/20/22 07:59 05/20/22 07:59 Laboratory Results - last 24 hr 05/20/22 08:30: WBC 4.2 L, RBC 2.74 L, Hgb 7.8 L, Hct 23.8 L, MCV 86.9, MCH 28.5, MCHC 32.8, RDW 15.6, Plt Count 236, MPV 9.1, Neut % (Auto) 83.7 H, Lymph % (Auto) 9.9 L, [place] % (Auto) 4.9, Eos % (Auto) 0.5, Baso % (Auto) 1.0, Neut # (Auto) 3.6, Lymph # (Auto) 0.4 L, [place] # (Auto) 0.2, Eos # (Auto) 0.0, Baso # (Auto) 0.0 05/20/22 08:30: Sodium 136, Potassium 4.1 D, Chloride 110 H, Carbon Dioxide 14 L, Anion Gap 16.1 H, BUN 35 H D, Creatinine 2.70 H, Estimated Creat Clear 20, Estimated GFR 17 L*, Est GFR ( Amer) 21 L D, Glucose 76, Calcium 7.9 L, Total Bilirubin 0.3, AST 28, ALT 8 L D, Alkaline Phosphatase 61, Total Protein 5.9 L, Albumin 3.3 L, Globulin 2.6, Albumin/Globulin Ratio 1.3 I & O for Last 24 hours: Intake & Output 05/17/22 05/18/22 05/19/22 05/20/22 23:59 23:59 23:59 23:59 Intake Total 170 / 170 2630 / 2750 2562 / 2682 1955 Output Total 450 / 450 Balance 170 / 170 2630 / 2500 2111 / 2232 1955 Weight 61.7 kg 65.58 kg 63.367 kg 67.358 kg Microbiology Reports for the Last 24 Hours: Microbiology 05/17/22 12:15 Blood Blood Culture - Preliminary NO GROWTH AFTER 48 HOURS Assessment and Plan (1) UTI (urinary tract infection) Status: Acute Qualifiers: Urinary tract infection type: acute cystitis Hematuria presence: with hematuria Qualified Code(s): N30.01 - Acute cystitis with hematuria Category: Medical Code(s): N39.0 - Urinary tract infection, site not specified (2) COVID-19 Status: Acute Category: Medical Code(s): U07.1 - COVID-19 (3) Acute on chronic renal failure Status: Acute Qualifiers: Chronic kidney disease stage: stage 4 (severe) Category: Medical Code(s): N17.9 - Acute kidney failure, unspecified; N18.9 - Chronic kidney disease, unspecified (4) Lupus nephritis Status: Chronic Category: Medical Code(s): M32.14 - Glomerular disease in systemic lupus erythematosus (5) ANGE (generalized anxiety disorder) Status: Chronic Category: Medical Code(s): F41.1 - Generalized anxiety disorder (6) Essential (primary) hypertension Status: Chronic Category: Medical Code(s): I10 - Essential (primary) hypertension (7) Mixed hyperlipidemia Status: Acute Category: Medical Code(s): E78.2 - Mixed hyperlipidemia (8) Rheumatoid arthritis Status: Chronic Category: Medical Code(s): M06.9 - Rheumatoid arthritis, unspecified The patient's infection will respond to the chosen ABx?: Yes (EMPIRIC THERAPY) Is the patient receiving the right drug, dose, and route?: Yes Could a more targeted ABx be ordered?: No (CULTURES PENDING )
--- NOTE | 2022-05-20 11:00 | HMH.PTEV ---
Physical Therapy Evaluation Rehab PT IP Evaluation Start: 05/19/22 08:54 Freq: ONCE Status: Active Protocol: Document 05/20/22 10:44 ANDRE (Rec: 05/20/22 11:00 ANDRE [id number]) Subjective/History History History Pt is a 72 y/o female that was admitted to [facility] on 05/17/22 and found to have UTI and Covid-19. Upon admission, daughter who is a CHRI[employer]IAN COUNSELOR reports progressive weakness over the last several months, weight loss and increased tremors per MD note. Medical History: Reports:: Gastroesophageal Reflux Disease(GERD), Hyperlipidemia, Hypertension, Lung Disease, Renal Disease Subjective Subjective Pt states she lives alone in a one-story home. Pt states she is independent with ADLs and has someone take her to the grocery store. Pt reports she has family close by but they work a lot. Pt states she uses a walker for ambulation. Pt reports she feels weak this AM . Pt demonstrated poor historian due to hard of hearing. Rehab PT IP Eval Objective Appearance Patient Behavior Appropriate,Cooperative Patient Orientation Place,Name,Birthday,Situation Difficulty following instructions none Speech Pattern Clear,Coherent Ambulation Patient Able to Ambulate Yes Ambulation Observation IP General Gait Pattern Observation Narrow Based Gait,Decrease Stride Lngth (R),Decrease Stride Lngth (L) Ambulation Distance (feet) 5 Ambulation Assistive Device Rolling Walker Ambulation Ability Contact Guard/Hand Hold Balance Sitting Balance Steady, safe Standing Balance Unsteady Dynamic Sitting Balance Ability Fair Dynamic Standing Balance Ability Fair Transfers Bed Transfer Ability Minimal x 1 (25% assist) Chair Transfer Ability Minimal x 1 (25% assist) Sit to Stand Bed Transfer Ability Minimal x 1 (25% assist) Sit to Stand Chair Transfer Ability Minimal x 1 (25% assist) MMT All Extremities PT MMT WFL Rehab PT IP prob,goals,plan Problems Date of Evaluation: 05/20/22 PT
--- NOTE | 2022-05-20 16:36 | PC.NURSE ---
no change since previous assessment. pt participated with therapy and spent a few hours up to chair. she has been tolerating room air well since this morning.
[2022-05-20 23:55] LABS: Hematocrit 26.2 % (37.0-47.0); Hemoglobin 8.5 g/dL (12.2-16.2)
[2022-05-21] VITALS (7 sets, daily range): BP systolic 128–166; BP diastolic 62–91; PULSE 55–143; RESP 16–20; TEMP 36.5–39.1; O2SAT 89–94; BMI 29.0
--- NOTE | 2022-05-21 04:47 | PC.NURSE ---
Pt iv to right ac beeping occluded. Pt reported pain with touch. Dressing removed and Iv Kinked. IV removed intact. Blood stopped at 1999 and restarted at 2034 once IV obtained Pt. tolerated well.
[2022-05-21 07:06] LABS: Basophils % 0.7 % (0.1-2.0); Eosinophils % 0.2 % (0.1-12.0); Hematocrit 28.5 % (37.0-47.0); Hemoglobin 9.3 g/dL (12.2-16.2); Lymphocytes # 0.6 K/mm3 (0.7-4.5); Lymphocytes % 9.8 % (10-50); Mean Corpuscular HGB Conc 32.4 g/dL (31.8-35.4); Mean Corpuscular Hemoglobin 28.5 pg (27.0-31.2); Mean Platelet Volume 8.4 fl (7.4-10.4); Monocytes # 0.2 K/mm3 (0.1-1.0); Monocytes % 3.2 % (1.7-9.3); Neutrophils # 5.2 K/mm3 (1.8-7.8); Neutrophils % 86.2 % (37.0-80.0); Platelet Count 218 K/mm3 (142-424); Red Blood Count 3.24 M/mm3 (4.20-5.40); Red Cell Distribution Width 15.7 % (11.5-17.5); White Blood Count 6.1 K/mm3 (4.8-10.8)
[2022-05-21 07:07] LABS: Chloride 111 mmol/L (98-107); Potassium 4.8 mmoL/L (3.5-5.1); Sodium 137 mmol/L (136-145)
[2022-05-21 07:10] LABS: Blood Urea Nitrogen 28 mg/dl (7-17); Calcium 8.1 mg/dl (8.4-10.2); Carbon Dioxide 15 mmol/L (22.0-30.0); Creatinine Clearance Estimated 24 mL/min (50-200); Estimated Glomerular Filt Rate 22 ml/min (>60); GFR (African American) 26 ML/MIN (>60); Glucose 68 mg/dl (74-100)
[2022-05-21 07:12] LABS: Anion Gap 15.8 mEq/L (5-15)
[2022-05-21 07:13] LABS: MANUAL DIFFERENTIAL MANUAL DIFFERENTIAL (MANUAL DIFF)
[2022-05-21 08:08] LABS: Lymphocytes % 6 % (10-50); Monocytes % 2 % (2-9); Neutrophils % 92 % (42-76); Total Cells Counted 100
[2022-05-21 08:09] LABS: Anisocytosis 1+; Hypochromasia 1+; Ovalocytes 1+; Platelet Estimate Normal
[2022-05-21 09:57] LABS: Influenza A, PCR Not Detected (NotDetected); Influenza B, PCR Not Detected (NotDetected)
--- NOTE | 2022-05-21 10:30 | P.PN_ITS ---
Internal Medicine - PN: Subj *Date: 05/21/22 *Time: 10:30 Exam Vital signs and Labs for Last 24 Hours: Temp Pulse Resp BP Pulse Ox 97.8 F 85 16 163/72 H 93 L 05/21/22 08:00 05/21/22 08:00 05/21/22 08:00 05/21/22 08:00 05/21/22 08:00 Laboratory Results - last 24 hr 05/19/22 09:32: Blood Type O Negative, Antibody Screen Negative, Crossmatch (AHG) See Detail 05/20/22 09:30: Blood Type Confirm O Negative 05/20/22 23:45: Hgb 8.5 L, Hct 26.2 L 05/21/22 06:47: WBC 6.1 D, RBC 3.24 L, Hgb 9.3 L, Hct 28.5 L, MCV 88.0, MCH 28.5, MCHC 32.4, RDW 15.7, Plt Count 218, MPV 8.4, Neut % (Auto) 86.2 H, Lymph % (Auto) 9.8 L, [place] % (Auto) 3.2, Eos % (Auto) 0.2, Baso % (Auto) 0.7, Neut # (Auto) 5.2, Lymph # (Auto) 0.6 L, [place] # (Auto) 0.2, Eos # (Auto) 0.0, Baso # (Auto) 0.0, Total Counted 100, Neutrophils % (Manual) 92 H, Lymphocytes % (Manual) 6 L, Monocytes % (Manual) 2, Platelet Estimate Normal, Hypochromasia 1+, Anisocytosis 1+, Ovalocytes 1+ 05/21/22 06:47: Sodium 137, Potassium 4.8, Chloride 111 H, Carbon Dioxide 15 L, Anion Gap 15.8 H, BUN 28 H, Creatinine 2.20 H, Estimated Creat Clear 24, Estimated GFR 22 L, Est GFR ( Amer) 26 L D, Glucose 68 L, Calcium 8.1 L I & O for Last 24 hours: Intake & Output 05/18/22 05/19/22 05/20/22 05/21/22 23:59 23:59 23:59 23:59 Intake Total 2630 / 2750 2562 / 2682 3406 / 3646 360 / 360 Output Total 450 / 450 Balance 2630 / 2500 2112 / 2232 3406 / 3646 360 / 360 Weight 65.58 kg 63.367 kg 67.358 kg 66.933 kg Microbiology Reports for the Last 24 Hours: Microbiology 05/17/22 12:15 Blood Blood Culture - Preliminary Staphylococcus hominis Assessment and Plan (1) UTI (urinary tract infection) Status: Acute Qualifiers: Urinary tract infection type: acute cystitis Hematuria presence: with hematuria Qualified Code(s): N30.01 - Acute cystitis with hematuria Category: Medical Code(s): N39.0 - Urinary tract infection, site not specified (2) COVID-19 Status: Acute Category: Medical Code(s): U07.1 - COVID-19 (3) Acute on chronic renal failure Status: Acute Qualifiers: Chronic kidney disease stage: stage 4 (severe) Category: Medical Code(s): N17.9 - Acute kidney failure, unspecified; N18.9 - Chronic kidney disease, unspecified (4) Lupus nephritis Status: Chronic Category: Medical Code(s): M32.14 - Glomerular disease in systemic lupus erythematosus (5) ANGE (generalized anxiety disorder) Status: Chronic Category: Medical Code(s): F41.1 - Generalized anxiety disorder (6) Essential (primary) hypertension Status: Chronic Category: Medical Code(s): I10 - Essential (primary) hypertension (7) Mixed hyperlipidemia Status: Acute Category: Medical Code(s): E78.2 - Mixed hyperlipidemia (8) Rheumatoid arthritis Status: Chronic Category: Medical Code(s): M06.9 - Rheumatoid arthritis, unspecified The patient's infection will respond to the chosen ABx?: Yes Is the patient receiving the right drug, dose, and route?: Yes Could a more targeted ABx be ordered?: No (STAPH HOMINIS IN BLOOD. ZYVOX STARTED IN PLACE OF VANC DUE TO RENAL FXN)
--- NOTE | 2022-05-21 10:35 | HMH.OTEV ---
OT Inpatient Evaluation Rehab OT IP Evaluation Start: 05/19/22 08:54 Freq: ONCE Status: Complete Protocol: Document 05/21/22 09:55 FRANDY (Rec: 05/21/22 10:34 [id number] Rehab OT IP Assessment Subjective History Pt oriented x 3 on arrival. Pt very hard of hearing and required max verbal cues during evaluation. Pt was admitted on 05/17/22 due to weakness and COVID-19. Pt reports prior to being in the hospital she lived alone. Pt claims she was independent with dressing, showering, and feeding. Pt does have a shower chair she uses while showering. Pt reports she is dependent upon others for completion of IADLs. Pt has someone clean her house weekly and her daughter completes all other IADLs. The following information was copied from history and report : 72 year old female with SLE with lupus nephritis, RA, CKD stage 4, HTN, HLD, anxiety, depression and GERD presented to PCP office yesterday for weakness, dysuria and cough. Found to have UTI, given rocephin IM and levaquin. Labs were drawn which resulted this morning, creatinine of 4 with baseline 2.6, K 6.3. WBC normal. Patient advised to come to PCP office this where she reported worsening weakness and malaise. + diarrhea. + N, no vomiting. Appetite decreased. Continues to c/o dysuria and urinary freq. + cough, SOA with exertion. No fevers. Daughter who is a [employer]ACH[employer] OFFICER reports progressive weakness over the last several months, weight loss and increased tremors. Patient lives alone with
[2022-05-21 10:40] LABS: Coronavirus 19, PCR Detected (NotDetected)
--- NOTE | 2022-05-21 11:24 | P.PN_ITS ---
Internal Medicine - PN: Subj *Date: 05/21/22 *Time: 11:24 Exam Vital signs and Labs for Last 24 Hours: Temp Pulse Resp BP Pulse Ox 97.8 F 85 16 163/72 H 93 L 05/21/22 08:00 05/21/22 08:00 05/21/22 08:00 05/21/22 08:00 05/21/22 08:00 Laboratory Results - last 24 hr 05/19/22 09:32: Blood Type O Negative, Antibody Screen Negative, Crossmatch (AHG) See Detail 05/20/22 09:30: Blood Type Confirm O Negative 05/20/22 23:45: Hgb 8.5 L, Hct 26.2 L 05/21/22 06:47: WBC 6.1 D, RBC 3.24 L, Hgb 9.3 L, Hct 28.5 L, MCV 88.0, MCH 28.5, MCHC 32.4, RDW 15.7, Plt Count 218, MPV 8.4, Neut % (Auto) 86.2 H, Lymph % (Auto) 9.8 L, [place] % (Auto) 3.2, Eos % (Auto) 0.2, Baso % (Auto) 0.7, Neut # (Auto) 5.2, Lymph # (Auto) 0.6 L, [place] # (Auto) 0.2, Eos # (Auto) 0.0, Baso # (Auto) 0.0, Total Counted 100, Neutrophils % (Manual) 92 H, Lymphocytes % (Manual) 6 L, Monocytes % (Manual) 2, Platelet Estimate Normal, Hypochromasia 1+, Anisocytosis 1+, Ovalocytes 1+ 05/21/22 06:47: Sodium 137, Potassium 4.8, Chloride 111 H, Carbon Dioxide 15 L, Anion Gap 15.8 H, BUN 28 H, Creatinine 2.20 H, Estimated Creat Clear 24, Estimated GFR 22 L, Est GFR ( Amer) 26 L D, Glucose 68 L, Calcium 8.1 L 05/21/22 09:53: SARS-CoV-2 (PCR) Detected A, Influenza A Untype (PCR) Not detected, Influenza Type B (PCR) Not detected I & O for Last 24 hours: Intake & Output 05/18/22 05/19/22 05/20/22 05/21/22 23:59 23:59 23:59 23:59 Intake Total 2630 / 2750 2562 / 2682 3406 / 3646 360 / 360 Output Total 450 / 450 Balance 2630 / 2500 2112 / 2232 3406 / 3646 360 / 360 Weight 65.58 kg 63.367 kg 67.358 kg 66.933 kg Microbiology Reports for the Last 24 Hours: Microbiology 05/17/22 12:15 Blood Blood Culture - Preliminary Staphylococcus hominis Assessment and Plan (1) UTI (urinary tract infection) Status: Acute Qualifiers: Urinary tract infection type: acute cystitis Hematuria presence: with hematuria Qualified Code(s): N30.01 - Acute cystitis with hematuria Category: Medical Code(s): N39.0 - Urinary tract infection, site not specified (2) COVID-19 Status: Acute Category: Medical Code(s): U07.1 - COVID-19 (3) Acute on chronic renal failure Status: Acute Qualifiers: Chronic kidney disease stage: stage 4 (severe) Category: Medical Code(s): N17.9 - Acute kidney failure, unspecified; N18.9 - Chronic kidney disease, unspecified (4) Lupus nephritis Status: Chronic Category: Medical Code(s): M32.14 - Glomerular disease in systemic lupus erythematosus (5) ANGE (generalized anxiety disorder) Status: Chronic Category: Medical Code(s): F41.1 - Generalized anxiety diso rder (6) Essential (primary) hypertension Status: Chronic Category: Medical Code(s): I10 - Essential (primary) hypertension (7) Mixed hyperlipidemia Status: Acute Category: Medical Code(s): E78.2 - Mixed hyperlipidemia (8) Rheumatoid arthritis Status: Chronic Category: Medical Code(s): M06.9 - Rheumatoid arthritis, unspecified The patient's infection will respond to the chosen ABx?: Yes Is the patient receiving the right drug, dose, and route?: Yes Could a more targeted ABx be ordered?: No
--- NOTE | 2022-05-21 11:57 | PC.NURSE ---
WENT IN ROOM TO CHECK ON PT AND HELP HER TO BEDSIDE. SHE STATED SHE, FELT SICK AND WAS SHIVERING. PT WAS HELPED BACK TO BED AND STAFF OBTAINED A RECTAL TEMP OF 102.4F. PT MEDICATED PER JAN. AFTER GETTING COMFORTABLE IN BED SHE STATES, I AM FEELING A LITTLE BETTER NOW .
--- NOTE | 2022-05-21 13:26 | SW/DCPLANNER ---
Addendum entered by [facility] 05/24/22 12:10: Patient information/order has been faxed to [facility] for a portable O2 tank for transportation. Addendum entered by [facility] 05/24/22 09:54: Amber Mathews stated that this patient is approved to admit today. Patient does not require a COVID swab due to being COVID positive. Patient information/discharge summary will be faxed to [place] [facility] this AM. Addendum entered by [facility] 05/23/22 15:36: Per Amber with [facility]: precert is still pending at this time. Addendum entered by [facility] 05/22/22 09:50: Loretta Mathews has accepted this patient pending precert. I did inform Loretta this AM that patient is not medically stable for discharge today. Addendum entered by [facility] 05/22/22 08:03: I have informed Loretta Mathews that this patient is not medically stable for discharge at this time. Addendum entered by [facility] 05/21/22 14:40: Loretta Mathews has requested that patient information be faxed at this time. Addendum entered by [facility] 14:30: [facility] and [facility] have stated that they can not accept this patient due to COVID positive. I did have a lengthy discussion with patient's daughter that does work at [facility]. Daughter stated that she understood situation and will be speaking with different family members this evening to come up with a safe disposition. I will continue to follow up with daughter and patient. Daughter understands that patient will be ready for discharge tomorrow. Original Note: PT/OT have recommended placement for this patient once medically stable for discharge. Due to patient being COVID positive I have reached out to several facilities to see if they can accept positive patient's. The following facilities do not accept COVID positive: [facility], [place], [facility], [facility], [facility], [facility]. I am currently waiting to hear back from [facility] and [facility]. I will also call and discuss this with patient's daughter this afternoon.
--- NOTE | 2022-05-21 18:12 | HMH.ACPN2 ---
Internal Medicine - PN: Subj *Date: 05/21/22 *Time: 18:12 Interval history: I have made rounds on patient this morning at 8:30 AM at [facility]. She continues to feel somewhat tired but overall feels much better and is eating a little bit better. Denies shortness of air, remains on room air. Tolerated transfusion well yesterday. Exam Vital signs and Labs for Last 24 Hours: Temp Pulse Resp BP Pulse Ox 97.7 F 109 H 18 128/89 90 L 05/21/22 16:00 05/21/22 16:00 05/21/22 16:00 05/21/22 16:00 05/21/22 16:00 Laboratory Results - last 24 hr 05/19/22 09:32: Blood Type O Negative, Antibody Screen Negative, Crossmatch (AHG) See Detail 05/20/22 09:30: Blood Type Confirm O Negative 05/20/22 23:45: Hgb 8.5 L, Hct 26.2 L 05/21/22 06:47: WBC 6.1 D, RBC 3.24 L, Hgb 9.3 L, Hct 28.5 L, MCV 88.0, MCH 28.5, MCHC 32.4, RDW 15.7, Plt Count 218, MPV 8.4, Neut % (Auto) 86.2 H, Lymph % (Auto) 9.8 L, [place] % (Auto) 3.2, Eos % (Auto) 0.2, Baso % (Auto) 0.7, Neut # (Auto) 5.2, Lymph # (Auto) 0.6 L, [place] # (Auto) 0.2, Eos # (Auto) 0.0, Baso # (Auto) 0.0, Total Counted 100, Neutrophils % (Manual) 92 H, Lymphocytes % (Manual) 6 L, Monocytes % (Manual) 2, Platelet Estimate Normal, Hypochromasia 1+, Anisocytosis 1+, Ovalocytes 1+ 05/21/22 06:47: Sodium 137, Potassium 4.8, Chloride 111 H, Carbon Dioxide 15 L, Anion Gap 15.8 H, BUN 28 H, Creatinine 2.20 H, Estimated Creat Clear 24, Estimated GFR 22 L, Est GFR ( Amer) 26 L D, Glucose 68 L, Calcium 8.1 L 05/21/22 09:53: SARS-CoV-2 (PCR) Detected A, Influenza A Untype (PCR) Not detected, Influenza Type B (PCR) Not detected I & O for Last 24 hours: Intake & Output 05/19/22 05/20/22 05/21/22 05/22/22 11:59 11:59 11:59 11:59 Intake Total 2562 / 2562 2316 / 2316 1690 / 1690 60 / 60 Output Total 250 / 250 200 / 200 Balance 2312 / 2312 2116 / 2116 1690 / 1690 60 / 60 Weight 139 lb 11.2 oz 148 lb 8 oz 147 lb 9 oz Microbiology Reports for the Last 24 Hours: Microbiology 05/17/22 12:15 Blood Blood Culture - Preliminary Staphylococcus hominis Narrative: Patient is pleasant. Talkative. Still very tired and states that she does not feel good. However, she is up in a chair and eating fairly well. She did not really enjoy her breakfast very much, however. Anterior lung hdz are clear, heart rate regular. Abdomen soft. Extremities warm, no edema. She is neurologically intact but very weak. Assessment and Plan (1) UTI (urinary tract infection) Status: Acute Qualifiers: Urinary tract infection type: acute cystitis Hematuria presence: with hematuria Qualified Code(s): N30.01 - Acute cystitis with hematuria Category: Medical Code(s): N39.0 - Urinary tract infection, site not specified (2) COVID-19 Status: Acute Category: Medical Code(s): U07.1 - COVID-19 (3) Acute on chronic renal failure Status: Acute Qualifiers: Chronic kidney disease stage: stage 4 (severe) Category: Medical Code(s): N17.9 - Acute kidney failure, unspecified; N18.9 - Chronic kidney disease, unspecified (4) Lupus nephritis Status: Chronic Category: Medical Code(s): M32.14 - Glomerular disease in systemic lupus erythematosus (5) ANGE (generalized anxiety disorder) Status: Chronic Category: Medical Code(s): F41.1 - Generalized anxiety disorder (6) Essential (primary) hypertension Status: Chronic Category: Medical Code(s): I10 - Essential (primary) hypertension (7) Mixed hyperlipidemia Status: Acute Category: Medical Code(s): E78.2 - Mixed hyperlipidemia (8) Rheumatoid arthritis Status: Chronic Category: Medical Code(s): M06.9 - Rheumatoid arthritis, unspecified - Assessment and plan all Dx Assessment and Plan for all problems:: 1. Acute on chronic kidney dypycr-cvkbzezsy-cpvlxgmjzp back to baseline this morning. 2. Qfdwop-tbnntjqzfcqygi-pyfxkiw disease/renal disease-1 unit of packed c
[2022-05-22] VITALS: BP 134/91; PULSE 111; PULSE 119; RESP 20; TEMP 36.8; O2SAT 91
[2022-05-22 04:00] VITALS: BP 148/97; PULSE 142; PULSE 148; RESP 24; TEMP 37.9; O2SAT 90
[2022-05-22 04:39] VITALS: BMI 29.2
--- NOTE | 2022-05-22 04:51 | CT_ITS ---
PROCEDURE INFORMATION: Exam: CTA Chest With Contrast Exam date and time: 05/22/2022 5:23 AM Age: 72 years old Clinical indication: Shortness of breath; Patient HX: Covid+; Additional info: Increased 02 needs TECHNIQUE: Imaging protocol: Computed tomographic angiography of the chest with contrast. 3D rendering (Not supervised by radiologist): MIP and/or 3D reconstructed images were created by the technologist. Radiation optimization: All CT scans at this facility use at least one of these dose optimization techniques: automated exposure control; mA and/or kV adjustment per patient size (includes targeted exams where dose is matched to clinical indication); or iterative reconstruction. Contrast material: ISOVUE; Contrast volume: 70 ml; Contrast route: INTRAVENOUS (IV); COMPARISON: CT CHEST WO CON 03/29/2020 1:54 PM FINDINGS: Pulmonary arteries: No pulmonary emboli. Aorta: No aortic aneurysm. No aortic dissection. Lungs: Moderate to severe ground-glass and more dense foci of consolidation bilaterally; findings are suspicious for pneumonia. A component of pulmonary edema is not excluded. Postsurgical changes in the right lung. Pleural spaces: Small bilateral pleural effusions. Heart: Coronary artery calcifications. Other atherosclerotic disease including cervical carotid artery calcifications. Mild cardiomegaly. Lymph nodes: Calcified mediastinal/hilar lymph nodes, compatible with old granulomatous disease. Stable mildly prominent 9 x 12 mm superior mediastinal lymph node. Diaphragm: Small hiatal hernia. Mild nonspecific distal esophageal wall thickening. Adrenal glands: Moderate nonspecific thickening of both adrenal glands. Stomach and bowel: Mildly prominent nonspecific loops of small bowel in the upper abdomen. Bones/joints: Scoliosis and severe degenerative changes of the spine. Soft tissues: Unremarkable. IMPRESSION: 1. Moderate to severe ground-glass and more dense foci of consolidation bilaterally; findings are suspicious for pneumonia. A component of pulmonary edema is not excluded. 2. Small bilateral pleural effusions. 3. Coronary artery calcifications. 4. Other findings as detailed in the body of the report.
[2022-05-22 05:58] LABS: Basophils # 0.1 K/mm3 (0-0.2); Basophils % 0.4 % (0.1-2.0); Eosinophils % 0.1 % (0.1-12.0); Hematocrit 34.4 % (37.0-47.0); Lymphocytes # 0.4 K/mm3 (0.7-4.5); Lymphocytes % 3.6 % (10-50); Mean Corpuscular HGB Conc 32.3 g/dL (31.8-35.4); Mean Corpuscular Hemoglobin 28.2 pg (27.0-31.2); Mean Corpuscular Volume 87.1 fl (81-99); Mean Platelet Volume 8.9 fl (7.4-10.4); Monocytes # 0.3 K/mm3 (0.1-1.0); Monocytes % 2.3 % (1.7-9.3); Neutrophils # 11.5 K/mm3 (1.8-7.8); Neutrophils % 93.6 % (37.0-80.0); Platelet Count 266 K/mm3 (142-424); Red Blood Count 3.94 M/mm3 (4.20-5.40); Red Cell Distribution Width 15.8 % (11.5-17.5); White Blood Count 12.3 K/mm3 (4.8-10.8)
[2022-05-22 05:59] LABS: MANUAL DIFFERENTIAL MANUAL DIFFERENTIAL (MANUAL DIFF)
[2022-05-22 06:07] LABS: Chloride 103 mmol/L (98-107); Potassium 4.6 mmoL/L (3.5-5.1); Sodium 133 mmol/L (136-145)
[2022-05-22 06:10] LABS: Anion Gap 18.6 mEq/L (5-15); Blood Urea Nitrogen 30 mg/dl (7-17); Carbon Dioxide 16 mmol/L (22.0-30.0); Creatinine Clearance Estimated 24 mL/min (50-200); Estimated Glomerular Filt Rate 22 ml/min (>60); GFR (African American) 26 ML/MIN (>60); Hemoglobin 11.2 g/dL (12.2-16.2)
[2022-05-22 06:11] LABS: Calcium 7.9 mg/dl (8.4-10.2); Glucose 116 mg/dl (74-100)
--- NOTE | 2022-05-22 07:00 | PC.NURSE ---
Pt noted with increased hr and increased 02 demand. RT was notified for assistance since 6l o2 was not effective of maintaining her 02. Pt placed on 12L of 02. Dr. White called and notified order for stat CTA and x1 dose of ativan for anxiety. CTA completed awaiting results. ativan effective.
[2022-05-22 07:29] LABS: Eosinophils % 2 % (0-3); Lymphocytes % 5 % (10-50); Neutrophils % 93 % (42-76); Platelet Estimate Normal; Total Cells Counted 100
[2022-05-22 07:30] LABS: Microcytosis 1+
--- NOTE | 2022-05-22 07:32 | HMH.ACPN2 ---
Internal Medicine - PN: Subj *Date: 05/22/22 *Time: 18:16 Interval history: Unfortunately had some decompensation overnight. Has developed oxygen requirement. On 6 to 8 L throughout the day today. Imaging overnight with chest CT showing bilateral groundglass opacities. Concerned her COVID positivity has caught up with her. Developed fever overnight as well. States she feels more tired this morning. Has regular cough. No nausea or vomiting but has decreased appetite. Food just does not taste right per her report. No diarrhea or constipation. Exam Vital signs and Labs for Last 24 Hours: Temp Pulse Resp BP Pulse Ox 100.3 F H 148 H 24 148/97 H 90 L 05/22/22 04:00 05/22/22 04:00 05/22/22 04:00 05/22/22 04:00 05/22/22 04:00 Laboratory Results - last 24 hr 05/21/22 06:47: Total Counted 100, Neutrophils % (Manual) 92 H, Lymphocytes % (Manual) 6 L, Monocytes % (Manual) 2, Platelet Estimate Normal, Hypochromasia 1+, Anisocytosis 1+, Ovalocytes 1+ 05/21/22 09:53: SARS-CoV-2 (PCR) Detected A, Influenza A Untype (PCR) Not detected, Influenza Type B (PCR) Not detected 05/22/22 05:22: WBC 12.3 H D, RBC 3.94 L, Hgb 11.2 L D, Hct 34.4 L, MCV 87.1, MCH 28.2, MCHC 32.3, RDW 15.8, Plt Count 266, MPV 8.9, Neut % (Auto) 93.6 H, Lymph % (Auto) 3.6 L, Divide % (Auto) 2.3, Eos % (Auto) 0.1, Baso % (Auto) 0.4, Neut # (Auto) 11.5 H, Lymph # (Auto) 0.4 L, Divide # (Auto) 0.3, Eos # (Auto) 0.0, Baso # (Auto) 0.1, Total Counted 100, Neutrophils % (Manual) 93 H, Lymphocytes % (Manual) 5 L, Eosinophils % (Manual) 2, Platelet Estimate Normal, RBC Morphology Not Reportable, Microcytosis 1+ 05/22/22 05:22: Sodium 133 L, Potassium 4.6, Chloride 103, Carbon Dioxide 16 L, Anion Gap 18.6 H, BUN 30 H, Creatinine 2.20 H, Estimated Creat Clear 24, Estimated GFR 22 L, Est GFR ( Amer) 26 L, Glucose 116 H D, Calcium 7.9 L I & O for Last 24 hours: Intake & Output 05/19/22 05/20/22 05/21/22 05/22/22 23:59 23:59 23:59 23:59 Intake Total 2562 / 2682 3406 / 3646 420 / 420 Output Total 450 / 450 Balance 2111 / 2231 3406 / 3646 420 / 420 Weight 63.367 kg 67.358 kg 66.933 kg 67.449 kg Microbiology Reports for the Last 24 Hours: Microbiology 05/17/22 12:15 Blood Blood Culture - Preliminary Staphylococcus hominis - Constitutional moderate distress, chronically ill appearing - *Routine HEENT Exam Head: Present: normocephalic Eye: Present: EOMI, PERRL ENT: Present: mucous membranes moist - *Routine Neck Exam Present: supple. Absent: lymphadenopathy - *Routine Respiratory Exam Present: rhonchi, wheezes, crackles, distant breath sounds - *Routine Cardiovascular Exam Present: RRR - *Routine Abdominal Exam Present: soft, normoactive bowel sounds. Absent: tenderness - *Routine Extremities Exam Present: edema (1+ to knees). Absent: cyanosis, clubbing - *Routine Skin Exam Present: warm. Absent: rash - *Routine Neurological Exam Present: alert, oriented X3 Assessment and Plan (1) UTI (urinary tract infection) Status: Acute Qualifiers: Urinary tract infection type: acute cystitis Hematuria presence: with hematuria Qualified Code(s): N30.01 - Acute cystitis with hematuria Category: Medical Code(s): N39.0 - Urinary tract infection, site not specified (2) COVID-19 Status: Acute Category: Medical Code(s): U07.1 - COVID-19 (3) Acute on chronic renal failure Status: Acute Qualifiers: Chronic kidney disease stage: stage 4 (severe) Category: Medical Code(s): N17.9 - Acute kidney failure, unspecified; N18.9 - Chronic kidney disease, unspecified (4) Lupus nephritis Status: Chronic Category: Medical Code(s): M32.14 - Glomerular disease in systemic lupus erythematosus (5) ANGE (generalized anxiety disorder) Status: Chronic Category: Medical Code(s): F41.1 - Generalized anxiety disorder (6) Essential (primary) hypertension Status: Chronic Categ
[2022-05-22 08:00] VITALS: BP 117/78; PULSE 123; PULSE 128; PULSE 129; RESP 20; TEMP 36.6; O2SAT 95
--- NOTE | 2022-05-22 11:36 | PC.NURSE ---
Skin assessment this am of pt rubia
[2022-05-22 12:00] VITALS: BP 109/83; PULSE 112; PULSE 117; RESP 26; TEMP 36.9; O2SAT 88
[2022-05-22 16:00] VITALS: BP 132/91; PULSE 107; PULSE 96; RESP 18; TEMP 37; O2SAT 99
--- NOTE | 2022-05-22 19:00 | PC.NURSE ---
pt o2 was able to be weaned down from 12 liters to 6 liters by 1819. Marina Limon in Rt was able to further titrate o2 down to 3lpm at 1845. nad noted, pt has appeared comfortable. she does endorse soa with activity.
[2022-05-22 20:00] VITALS: BP 118/74; PULSE 80; PULSE 95; RESP 22; TEMP 36.4; O2SAT 95
[2022-05-23] VITALS (7 sets, daily range): BP systolic 110–132; BP diastolic 65–82; PULSE 78–120; RESP 14–20; TEMP 36.4–37.1; O2SAT 92–98; BMI 29.2
[2022-05-23 07:36] LABS: Basophils % 0.2 % (0.1-2.0); Hematocrit 33.9 % (37.0-47.0); Hemoglobin 10.9 g/dL (12.2-16.2); Lymphocytes # 0.6 K/mm3 (0.7-4.5); Lymphocytes % 4.7 % (10-50); Mean Corpuscular HGB Conc 32.2 g/dL (31.8-35.4); Mean Corpuscular Hemoglobin 28.7 pg (27.0-31.2); Mean Corpuscular Volume 89.1 fl (81-99); Mean Platelet Volume 9.3 fl (7.4-10.4); Monocytes # 0.3 K/mm3 (0.1-1.0); Monocytes % 2.2 % (1.7-9.3); Neutrophils # 11.1 K/mm3 (1.8-7.8); Neutrophils % 92.8 % (37.0-80.0); Platelet Count 233 K/mm3 (142-424); Red Blood Count 3.81 M/mm3 (4.20-5.40); Red Cell Distribution Width 15.8 % (11.5-17.5)
[2022-05-23 07:38] LABS: MANUAL DIFFERENTIAL MANUAL DIFFERENTIAL (MANUAL DIFF)
[2022-05-23 07:46] LABS: Chloride 104 mmol/L (98-107); Sodium 134 mmol/L (136-145)
[2022-05-23 07:47] LABS: Potassium 4.5 mmoL/L (3.5-5.1)
[2022-05-23 07:49] LABS: Alanine Aminotransferase 17 U/L (12-78); Albumin Level 2.9 g/dl (3.5-5.0); Albumin/Globulin Ratio 1.2 (1.1-1.8); Alkaline Phosphatase 56 U/L (38-126); Anion Gap 14.5 mEq/L (5-15); Aspartate Amino Transferase 71 U/L (14-36); Bilirubin,Total 0.3 mg/dl (0.2-1.3); Blood Urea Nitrogen 38 mg/dl (7-17); Calcium 7.7 mg/dl (8.4-10.2); Carbon Dioxide 20 mmol/L (22.0-30.0); Creatinine Clearance Estimated 20 mL/min (50-200); Estimated Glomerular Filt Rate 17 ml/min (>60); GFR (African American) 21 ML/MIN (>60); Globulin 2.4 g/dL (1.3-3.2); Glucose 82 mg/dl (74-100); Total Protein,Serum 5.3 g/dl (6.3-8.2)
[2022-05-23 07:50] LABS: Magnesium 1.2 mg/dl (1.6-2.3)
[2022-05-23 09:04] LABS: Lymphocytes % 6 % (10-50); Monocytes % 3 % (2-9); Neutrophils % 91 % (42-76); Total Cells Counted 100
[2022-05-23 09:05] LABS: Platelet Estimate Normal; RBC Morphology Normal
--- NOTE | 2022-05-23 09:40 | PC.NURSE ---
Informed RT of sputum
--- NOTE | 2022-05-23 10:35 | PC.NURSE ---
RESP CARE NOTE: Pt is COVID positive and sputum induction cannot be performed, per CDC guidelines. Specimen cup left at bedside, and patient instructed to obtain specimen if expectorated.
--- NOTE | 2022-05-23 17:04 | PC.NURSE ---
Pt has had an uneventful day during my shift. She sat up in the chair for a few hours today. I am continuing to wean o2. There is no change since last assessment. Will continue to monitor.
--- NOTE | 2022-05-23 18:41 | HMH.ACPN2 ---
Internal Medicine - PN: Subj *Date: 05/23/22 *Time: 09:00 Interval history: Remains afebrile. Tolerating some p.o. intake. Denies chest pain, nausea or vomiting. Does have some poor appetite. Making urine. Able to wean oxygen to 3 L. Minimal cough this morning. Kidney function with slight bump, though not significant given her chronically low GFR. Alert and oriented this morning on exam. Exam Vital signs and Labs for Last 24 Hours: Temp Pulse Resp BP Pulse Ox 98.7 F 103 H 14 127/82 94 L 05/23/22 16:00 05/23/22 16:00 05/23/22 16:00 05/23/22 16:00 05/23/22 16:00 Laboratory Results - last 24 hr 05/23/22 06:32: WBC 12.0 H, RBC 3.81 L, Hgb 10.9 L, Hct 33.9 L, MCV 89.1, MCH 28.7, MCHC 32.2, RDW 15.8, Plt Count 233, MPV 9.3, Neut % (Auto) 92.8 H, Lymph % (Auto) 4.7 L, Bradford % (Auto) 2.2, Eos % (Auto) 0.0 L, Baso % (Auto) 0.2, Neut # (Auto) 11.1 H, Lymph # (Auto) 0.6 L, Bradford # (Auto) 0.3, Eos # (Auto) 0.0, Baso # (Auto) 0.0, Total Counted 100, Neutrophils % (Manual) 91 H, Lymphocytes % (Manual) 6 L, Monocytes % (Manual) 3, Platelet Estimate Normal, RBC Morphology Normal 05/23/22 06:32: Sodium 134 L, Potassium 4.5, Chloride 104, Carbon Dioxide 20 L, Anion Gap 14.5, BUN 38 H D, Creatinine 2.70 H D, Estimated Creat Clear 20, Estimated GFR 17 L*, Est GFR ( Amer) 21 L, Glucose 82, Calcium 7.7 L, Magnesium 1.2 L, Total Bilirubin 0.3, AST 71 H D, ALT 17 D, Alkaline Phosphatase 56, Total Protein 5.3 L, Albumin 2.9 L, Globulin 2.4, Albumin/Globulin Ratio 1.2 I & O for Last 24 hours: Intake & Output 05/20/22 05/21/22 05/22/22 05/23/22 23:59 23:59 23:59 23:59 Intake Total 3406 / 3646 420 / 420 300 / 300 600 / 600 Output Total 0 / 0 200 / 200 Balance 3406 / 3646 420 / 420 300 / 300 400 / 400 Weight 67.358 kg 66.933 kg 67.449 kg 67.585 kg Narrative: - Constitutional mild distress, chronically ill appearing - *Routine HEENT Exam Head: Present: normocephalic Eye: Present: EOMI, PERRL ENT: Present: mucous membranes moist - *Routine Neck Exam Present: supple. Absent: lymphadenopathy - *Routine Respiratory Exam Present: rhonchi, wheezes, crackles, distant breath sounds - *Routine Cardiovascular Exam Present: RRR - *Routine Abdominal Exam Present: soft, normoactive bowel sounds. Absent: tenderness - *Routine Extremities Exam Present: edema (1+ to knees). Absent: cyanosis, clubbing - *Routine Skin Exam Present: warm. Absent: rash - *Routine Neurological Exam Present: alert, oriented X3 Assessment and Plan (1) COVID-19 Status: Acute Category: Medical Code(s): U07.1 - COVID-19 (2) UTI (urinary tract infection) Status: Acute Qualifiers: Urinary tract infection type: acute cystitis Hematuria presence: with hematuria Qualified Code(s): N30.01 - Acute cystitis with hematuria Category: Medical Code(s): N39.0 - Urinary tract infection, site not specified (3) Acute on chronic renal failure Status: Acute Qualifiers: Chronic kidney disease stage: stage 4 (severe) Category: Medical Code(s): N17.9 - Acute kidney failure, unspecified; N18.9 - Chronic kidney disease, unspecified (4) Lupus nephritis Status: Chronic Category: Medical Code(s): M32.14 - Glomerular disease in systemic lupus erythematosus (5) ANGE (generalized anxiety disorder) Status: Chronic Category: Medical Code(s): F41.1 - Generalized anxiety disorder (6) Essential (primary) hypertension Status: Chronic Category: Medical Code(s): I10 - Essential (primary) hypertension (7) Mixed hyperlipidemia Status: Acute Category: Medical Code(s): E78.2 - Mixed hyperlipidemia (8) Rheumatoid arthritis Status: Chronic Category: Medical Code(s): M06.9 - Rheumatoid arthritis, unspecified (9) Pneumonia Status: Acute Qualifiers: Pneumonia type: due to COVID-19 virus Qualified Code(s): U07.1 - COVID-19; J12.82 - Pneumonia due to coronavirus disease 2019 Categor
[2022-05-23 22:52] LABS: Microscopic, Urine URINE MICROSCOPIC (MICROSCOPIC)
[2022-05-23 22:58] LABS: Appearance,Urine CLEAR (Clear); Bilirubin,Urine Negative (Negative); Blood, Urine 2+ (Negative); Color,Urine YELLOW (Yellow); Glucose,Urine (UA) Negative (Negative); Ketones,Urine Negative (Negative); Leukocyte Esterase,Urine Negative (Negative); Nitrate,Urine Negative (Negative); Protein,Urine 2+ (Negative); Urobilinogen,Urine 0.2 EU/dl (0.2)
[2022-05-23 23:39] LABS: Bacteria,Urine 1+ /lpf; Mucus,Urine 1+ /lpf
[2022-05-24] VITALS: BP 121/79; PULSE 87; PULSE 91; RESP 18; TEMP 36.8; O2SAT 96
--- NOTE | 2022-05-24 00:10 | PC.NURSE ---
Urine and sputum sent to lab this shift.
[2022-05-24 04:00] VITALS: BP 121/81; PULSE 80; PULSE 85; RESP 18; TEMP 36.6; O2SAT 96
--- NOTE | 2022-05-24 04:08 | PC.NURSE ---
Patient has rested well this shift. Patient stated she was feeling better and was able to hold a conversation with me. I was able to obtain urine specimen for UA, as well as sputum sample. Both were sent to lab this shift. Attempted to wean oxygen from 2L, was unsuccessful. No other changes this shift. Call light in place and working.
[2022-05-24 05:00] VITALS: BMI 29.6
[2022-05-24 06:38] LABS: Basophils % 0.3 % (0.1-2.0); Eosinophils % 0.1 % (0.1-12.0); Hematocrit 30.5 % (37.0-47.0); Lymphocytes # 0.4 K/mm3 (0.7-4.5); Lymphocytes % 6.2 % (10-50); Mean Corpuscular HGB Conc 32.1 g/dL (31.8-35.4); Mean Corpuscular Hemoglobin 28.5 pg (27.0-31.2); Mean Corpuscular Volume 88.8 fl (81-99); Mean Platelet Volume 9.6 fl (7.4-10.4); Monocytes # 0.2 K/mm3 (0.1-1.0); Monocytes % 3.2 % (1.7-9.3); Neutrophils # 5.4 K/mm3 (1.8-7.8); Neutrophils % 90.1 % (37.0-80.0); Platelet Count 185 K/mm3 (142-424); Red Blood Count 3.44 M/mm3 (4.20-5.40); Red Cell Distribution Width 15.9 % (11.5-17.5)
[2022-05-24 07:10] LABS: Chloride 105 mmol/L (98-107); Sodium 133 mmol/L (136-145)
[2022-05-24 07:11] LABS: Potassium 4.7 mmoL/L (3.5-5.1)
--- NOTE | 2022-05-24 07:11 | HMH.DCSUM ---
General - General Admission date:: 05/17/22 Discharge date: 05/24/22 HPI HPI: 72 year old female with SLE with lupus nephritis, RA, CKD stage 4, HTN, HLD, anxiety, depression and GERD presented to PCP office yesterday for weakness, dysuria and cough. Found to have UTI, given rocephin IM and levaquin. Labs were drawn which resulted this morning, creatinine of 4 with baseline 2.6, K 6.3. WBC normal. Patient advised to come to PCP office this where she reported worsening weakness and malaise. + diarrhea. + N, no vomiting. Appetite decreased. Continues to c/o dysuria and urinary freq. + cough, SOA with exertion. No fevers. Daughter who is a [employer] reports progressive weakness over the last several months, weight loss and increased tremors. Patient lives alone with assistance of family who lives nearby. Direct admitted for IV hydration, antibiotics and further evaluation. Hospital Course Hospital Course: 72-year-old female with history of lupus, lupus nephritis, presented to clinic yesterday with severe electrolyte abnormalities, weakness. Admitted for management of dehydration, acute on chronic kidney injury, and subsequent identification of COVID-19. Currently on broad-spectrum antibiotics. Blood cultures with commensal organism identified. Has been tolerating antibiotics. Kidney function stable. Reviewed oxygenation over the past 24 hours. Kidney function prohibits use of remdesivir. Problems addressed as follows: COVID-19 -Had some increased coughing and oxygen requirement during hospitalization. Has been stable on 3 L nasal cannula for more than 2 days. Plan to continue oxygen at discharge. Due to kidney function, we were unable to treat with any antivirals. Treated with steroids during hospitalization and resumed her hydroxychloroquine for her lupus. Has remained stable. Given underlying comorbidities, she is at high risk however for worsening condition. Continue close monitoring. Acute on chronic kidney failure Hyperkalemia Lupus nephritis -Kidney function returned to baseline hospitalization with fluid resuscitation. Has remained stable. Hyperkalemia resolved with treatment with Kayexalate. Had no cardiac effects. Continue to hold mycophenolate due to her kidney injury. Reevaluate in the outpatient setting. Would benefit from repeat labs in a week, if kidney function remains stable, may be appropriate to resume her mycophenolate. Anemia -multifactorial-chronic disease/renal disease-1 unit of packed cells given because of significant fatigue and low hemoglobin-she has responded very nicely. Hemoglobin is remained stable. UTI - urine culture positive for E.coli, sensitive to all abx except fluroquinolones. Ceftriaxone and Azith for urine and pneumonia coverage. He did antibiotics during admission. No further antibiotics at discharge. Weakness - PT recommended skilled care, because of her COVID-positive test were having a problem placing her. Plan to discharge to [facility]. Will need continued physical therapy and skilled care. Objective Vital signs: Temp Pulse Resp BP Pulse Ox 97.8 F 85 18 121/81 96 05/24/22 04:00 05/24/22 04:00 05/24/22 04:00 05/24/22 04:00 05/24/22 04:00 Narrative: - Constitutional mild distress, chronically ill appearing - *Routine HEENT Exam Head: Present: normocephalic Eye: Present: EOMI, PERRL ENT: Present: mucous membranes moist - *Routine Neck Exam Present: supple. Absent: lymphadenopathy - *Routine Respiratory Exam Present: Improved respiratory sounds, breath sounds still distant, no significant crackles or rhonchi today - *Routine Cardiovascular Exam Present: RRR - *Routine Abdominal Exam Present: soft, normoactive bowel sounds. Absent: tenderness - *Routine Extremities Exam Present: edema (1+ to knees). Absent: cyanosis, clubbing - *Routine Skin Exam Present: warm. Absent: rash - *Routine Neurological Exam Present: alert, or
[2022-05-24 07:13] LABS: Alanine Aminotransferase 16 U/L (12-78); Alkaline Phosphatase 44 U/L (38-126); Anion Gap 12.7 mEq/L (5-15); Aspartate Amino Transferase 63 U/L (14-36); Bilirubin,Total 0.5 mg/dl (0.2-1.3); Blood Urea Nitrogen 43 mg/dl (7-17); Carbon Dioxide 20 mmol/L (22.0-30.0); Creatinine Clearance Estimated 23 mL/min (50-200); Estimated Glomerular Filt Rate 20 ml/min (>60); GFR (African American) 24 ML/MIN (>60)
[2022-05-24 07:14] LABS: Albumin Level 2.6 g/dl (3.5-5.0); Albumin/Globulin Ratio 1.1 (1.1-1.8); Calcium 7.4 mg/dl (8.4-10.2); Globulin 2.3 g/dL (1.3-3.2); Glucose 102 mg/dl (74-100); Magnesium 1.9 mg/dl (1.6-2.3); Total Protein,Serum 4.9 g/dl (6.3-8.2)
[2022-05-24 07:55] VITALS: BP 120/79; PULSE 94; RESP 18; TEMP 36.3; O2SAT 97
[2022-05-24 07:56] LABS: Hemoglobin 9.8 g/dL (12.2-16.2); MANUAL DIFFERENTIAL MANUAL DIFFERENTIAL (MANUAL DIFF)
[2022-05-24 08:00] VITALS: PULSE 100
[2022-05-24 08:42] LABS: Lymphocytes % 6 % (10-50); Monocytes % 1 % (2-9); Neutrophils % 93 % (42-76); Nucleated Red Blood Cells 1; Total Cells Counted 100
[2022-05-24 08:44] LABS: Burr Cells 1+; Platelet Estimate Normal
--- NOTE | 2022-05-24 10:29 | PC.NURSE ---
Pt has to get abx IV before she can be discharged.
[2022-05-24 12:00] VITALS: BP 122/82; PULSE 90; PULSE 91; RESP 18; TEMP 36.4; O2SAT 96
--- NOTE | 2022-05-24 12:07 | PC.NURSE ---
Spoke with granddaughter she stated that they would take her to [facility] by POV.
--- NOTE | 2022-05-24 12:15 | PC.NURSE ---
Spoke with Cheryle Arteaga she is working on getting portable o2 for pt.
--- NOTE | 2022-05-24 12:16 | PC.NURSE ---
Called and spoke Piper with at [facility] to give report.
--- NOTE | 2022-05-24 12:52 | PC.NURSE ---
RA is 88%
--- NOTE | 2022-05-24 13:16 | PC.NURSE ---
SHAHIDA root spoke with patients family they will be here in about an hour and a half.
--- NOTE | 2022-05-24 15:00 | PC.NURSE ---
Pt has had an uneventful day during my shift. There were no changes since last assessment. Will continue to monitor till d/c.
--- NOTE | 2022-05-25 13:10 | CARE MANAGER ---
Contacted [place] Mathews who states patient is adjusting well and deoing better. They deny questions or concerns at this time. SHAHIDA Valle
--- NOTE | 2022-06-12 13:10 | PC.NURSE ---
Call received from Marina Villavicencio, patient's granddaughter inquiring about patients home medications. Marina stated when patient discharged from [facility] she went to [place] [place] and her home medications were not sent with her to [facility]. Marina reports that her grandmother (Myriam Ledezma) has been discharged from [facility] and they need her home medications. Informed Marina I would call her back as soon as I retrieved the medications. Spoke with Christy Bedolla D. regarding medications. Home medications were retrieved from Pharmacy. I hand delivered all medications to Marina Villavicencio, grandaughter and Taylor Villavicencio, daughter. I informed them that bottles had been cleansed with sanitizing wipes when the patient discharged therefore the labels were discolored. Reviewed medications with Marina and Taylor and they verbalized they could read the labels. I instructed them if they had any questions to call the [facility]. They verbalized understanding.
== END 2022-05-24 15:27 | DRG 689 ==
PROVIDERS: Internal Medicine Adolescent Medicine; Nurse Practitioner Family; Admitting Provider Internal Medicine Adolescent Medicine; PCP Internal Medicine Adolescent Medicine; Visit Provider Internal Medicine Adolescent Medicine
DX: N39.0 Urinary tract infection, site not specified (principal); U07.1 COVID-19; N17.9 Acute kidney failure, unspecified; N18.4 Chronic kidney disease, stage 4 (severe); N30.00 Acute cystitis without hematuria
CPT/HCPCS: 36415; 71045; 71275; 80048; 80053; 81001; 82962; 83605; 83735; 85007; 85014; 85018; 85025; 86850; 87040; 87070; 87077; 87086; 87186; 87205; 93005; 94761; 97110; 97162; 97166; 97530; C9803; J0456; J0696; J1335; J2020; J2405; J3475; P9016; Q9967; U0003; U0005

== ENCOUNTER → 2022-07-16 09:33 | Outpatient (CLI) | payer MEDICARE, MEDICAID, SELFPAY ==
[2022-07-16 10:25] LABS: Anion Gap 16.3 mEq/L (5-15); Blood Urea Nitrogen 42 mg/dl (7-17); Calcium 9.4 mg/dl (8.4-10.2); Carbon Dioxide 26 mmol/L (22.0-30.0); Chloride 101 mmol/L (98-107); Estimated Glomerular Filt Rate 13 ml/min (>60); GFR (African American) 16 ML/MIN (>60); Glucose 97 mg/dl (74-100); Potassium 4.3 mmoL/L (3.5-5.1); Sodium 139 mmol/L (136-145)
== END ==
PROVIDERS: PCP Internal Medicine Adolescent Medicine; Visit Provider Internal Medicine Nephrology
DX: N17.9 Acute kidney failure, unspecified (principal)
CPT/HCPCS: 36415; 80048

== ENCOUNTER → 2022-07-16 10:03 | Outpatient (POV) | payer MEDICARE, MEDICAID, SELFPAY | PROVIDERS: Visit Provider Internal Medicine Nephrology | DX: Z00.00 Encounter for general adult medical examination without abnormal findings (principal) ==

== ENCOUNTER → 2022-08-15 09:06 | Outpatient (CLI) | payer MEDICARE, MEDICAID, SELFPAY ==
[2022-08-15 10:09] LABS: Basophils # 0.1 K/mm3 (0-0.2); Basophils % 1.2 % (0.1-2.0); Eosinophils # 0.1 K/mm3 (0.0-0.4); Eosinophils % 2.1 % (0.1-12.0); Hematocrit 24.9 % (37.0-47.0); Lymphocytes # 0.6 K/mm3 (0.7-4.5); Lymphocytes % 14.3 % (10-50); Mean Corpuscular HGB Conc 32.2 g/dL (31.8-35.4); Mean Corpuscular Hemoglobin 29.4 pg (27.0-31.2); Mean Corpuscular Volume 91.4 fl (81-99); Mean Platelet Volume 7.7 fl (7.4-10.4); Monocytes # 0.3 K/mm3 (0.1-1.0); Monocytes % 5.8 % (1.7-9.3); Neutrophils # 3.3 K/mm3 (1.8-7.8); Neutrophils % 76.6 % (37.0-80.0); Platelet Count 266 K/mm3 (142-424); Red Blood Count 2.73 M/mm3 (4.20-5.40); Red Cell Distribution Width 15.5 % (11.5-17.5); White Blood Count 4.3 K/mm3 (4.8-10.8)
[2022-08-15 12:10] LABS: Albumin Level 3.8 g/dl (3.5-5.0); Chloride 107 mmol/L (98-107); Sodium 141 mmol/L (136-145)
[2022-08-15 12:13] LABS: Blood Urea Nitrogen 43 mg/dl (7-17); Carbon Dioxide 23 mmol/L (22.0-30.0); Estimated Glomerular Filt Rate 14 ml/min (>60); GFR (African American) 17 ML/MIN (>60)
[2022-08-15 12:14] LABS: Calcium 8.3 mg/dl (8.4-10.2); Glucose 95 mg/dl (74-100)
== END ==
PROVIDERS: Internal Medicine Nephrology; PCP Internal Medicine Adolescent Medicine; Visit Provider Internal Medicine Adolescent Medicine
DX: N17.9 Acute kidney failure, unspecified (principal); I12.9 Hypertensive chronic kidney disease with stage 1 through stage 4 chronic kidney disease, or unspecified chronic kidney disease; N18.4 Chronic kidney disease, stage 4 (severe); M32.10 Systemic lupus erythematosus, organ or system involvement unspecified
CPT/HCPCS: 36415; 80069; 85025

== ENCOUNTER → 2022-08-20 13:26 | Outpatient (POV) | payer MEDICARE, MEDICAID, SELFPAY | PROVIDERS: Visit Provider Internal Medicine Nephrology | DX: Z00.00 Encounter for general adult medical examination without abnormal findings (principal) ==

== ENCOUNTER → 2022-10-05 09:37 | Outpatient (CLI) | payer MEDICARE, MEDICAID, SELFPAY ==
[2022-10-05 09:57] LABS: Microscopic, Urine URINE MICROSCOPIC (MICROSCOPIC)
[2022-10-05 10:24] LABS: Appearance,Urine CLOUDY (Clear); Bilirubin,Urine Negative (Negative); Blood, Urine 2+ (Negative); Color,Urine YELLOW (Yellow); Glucose,Urine (UA) Negative (Negative); Ketones,Urine Negative (Negative); Leukocyte Esterase,Urine 2+ (Negative); Nitrate,Urine POSITIVE (Negative); Protein,Urine 2+ (Negative); Urobilinogen,Urine 0.2 EU/dl (0.2)
[2022-10-05 10:27] LABS: Basophils % 0.8 % (0.1-2.0); Eosinophils # 0.1 K/mm3 (0.0-0.4); Eosinophils % 1.2 % (0.1-12.0); Hemoglobin 9.9 g/dL (12.2-16.2); Lymphocytes % 18.8 % (10-50); Mean Corpuscular HGB Conc 31.9 g/dL (31.8-35.4); Mean Corpuscular Hemoglobin 29.2 pg (27.0-31.2); Mean Corpuscular Volume 91.5 fl (81-99); Mean Platelet Volume 8.5 fl (7.4-10.4); Monocytes # 0.3 K/mm3 (0.1-1.0); Monocytes % 5.9 % (1.7-9.3); Neutrophils # 4.1 K/mm3 (1.8-7.8); Neutrophils % 73.3 % (37.0-80.0); Platelet Count 246 K/mm3 (142-424); Red Blood Count 3.38 M/mm3 (4.20-5.40); Red Cell Distribution Width 14.5 % (11.5-17.5); White Blood Count 5.6 K/mm3 (4.8-10.8)
[2022-10-05 10:43] LABS: Creatinine,Urine Random 55 mg/dL (Not Estab.)
[2022-10-05 10:48] LABS: Albumin Level 4.4 g/dl (3.5-5.0); Anion Gap 15.5 mEq/L (5-15); Blood Urea Nitrogen 63 mg/dl (7-17); Calcium 9.6 mg/dl (8.4-10.2); Carbon Dioxide 27 mmol/L (22.0-30.0); Chloride 103 mmol/L (98-107); Estimated Glomerular Filt Rate 15 ml/min (>60); GFR (African American) 19 ML/MIN (>60); Glucose 100 mg/dl (74-100); Phosphorous 4.9 mg/dl (2.5-4.5); Potassium 4.5 mmoL/L (3.5-5.1); Sodium 141 mmol/L (136-145)
[2022-10-05 10:53] LABS: Erythrocyte Sedimentation Rate 45 mm/hr (0-30)
[2022-10-05 10:58] LABS: Bacteria,Urine 3+ /lpf; WBC,Urine TNTC #/hpf (0-3)
[2022-10-05 14:49] LABS: C-Reactive Protein 7.9 mg/L (0-4)
[2022-10-06 06:10] LABS: Hepatitis C Antibody <0.1 s/co ratio (0.0-0.9)
[2022-10-06 09:12] LABS: Complement C3 156 mg/dL (82-167)
[2022-10-06 14:12] LABS: Anti-DNA (DS) Ab Qn 1 IU/mL (0-9)
== END ==
PROVIDERS: Internal Medicine Rheumatology; PCP Internal Medicine Adolescent Medicine; Visit Provider Internal Medicine Nephrology
DX: M32.10 Systemic lupus erythematosus, organ or system involvement unspecified (principal); N18.4 Chronic kidney disease, stage 4 (severe); D63.1 Anemia in chronic kidney disease; I10 Essential (primary) hypertension; B95.2 Enterococcus as the cause of diseases classified elsewhere; R82.90 Unspecified abnormal findings in urine
CPT/HCPCS: 36415; 80069; 81001; 82570; 84155; 85025; 85651; 86140; 86161; 86225; 87086; 87088; 87186; 87380

== ENCOUNTER → 2022-10-11 13:34 | Outpatient (CLI) | payer MEDICARE, MEDICAID, SELFPAY ==
[2022-10-13 17:19] LABS: QuantiFERON-TB Gold Plus Negative (Negative)
== END ==
PROVIDERS: PCP Internal Medicine Adolescent Medicine; Visit Provider Internal Medicine Rheumatology
DX: M32.10 Systemic lupus erythematosus, organ or system involvement unspecified (principal)
CPT/HCPCS: 36415; 86480

== ENCOUNTER → 2022-10-22 11:29 | Outpatient (POV) | payer MEDICARE, MEDICAID, SELFPAY | PROVIDERS: Visit Provider Internal Medicine Nephrology | DX: Z00.00 Encounter for general adult medical examination without abnormal findings (principal) ==

== ENCOUNTER → 2022-10-29 10:45 | Outpatient (CLI) | payer MEDICARE, MEDICAID, SELFPAY ==
--- NOTE | 2022-10-29 10:47 | MM_ITS ---
PROCEDURE INFORMATION: Exam: MG Bilateral Screening 3D Mammography Exam date and time: 10/29/2022 10:43 AM Age: 72 years old Clinical indication: Screening examination TECHNIQUE: Imaging protocol: Bilateral Screening tomosynthesis and 2D mammography including computer-aided detection (CAD) when performed. COMPARISON: 1. MG MM DIG SCREENING MAMM BI W/CAD 10/17/2021 1:06 PM 2. MG MM DIG SCREENING MAMM BI W/CAD 09/13/2020 9:29 AM FINDINGS: MAMMOGRAPHY: Breast composition: The breasts are heterogeneously dense, which may obscure small masses. Mass: None. Architectural distortion: None. Calcifications: No suspicious calcifications. Asymmetric density: None. Skin thickening: None. Axillary adenopathy: None. IMPRESSION: No mammographic evidence of malignancy. Annual screening is recommended unless otherwise clinically indicated. ASSESSMENT: BI-RADS Category 1: Negative
== END ==
PROVIDERS: PCP Internal Medicine Adolescent Medicine; Visit Provider Internal Medicine Adolescent Medicine
DX: Z12.31 Encounter for screening mammogram for malignant neoplasm of breast (principal)
CPT/HCPCS: 77063; 77067

== ENCOUNTER 2023-01-07 18:41 | Emergency (ER) | payer MEDICARE, MEDICAID, SELFPAY ==
--- NOTE | 2023-01-07 18:41 | ECG_ITS ---
APPROVED REPORT Exam: Resting ECG HR:60 bpm ECG Measurements Heart Rate 60 AXES [place] 180 P 27 QRSd 104 QRS -7 QT 447 T -3 QTc 447 Conclusion SINUS RHYTHM NORMAL ECG UNCONFIRMED REPORT Electronically signed by : Winston Webster MD 01/08/2023 20:21:19
[2023-01-07 18:42] VITALS: BP 92/55; PULSE 62; RESP 16; TEMP 36.6; O2SAT 100; BMI 24.7
--- NOTE | 2023-01-07 18:44 | HMH.EDGENADL ---
Discharge Plan Disposition Chief Complaint: Syncope Prescriptions Prescriptions: No Action buspirone 10 mg tablet 10 mg PO BID 30 Days levothyroxine 100 mcg tablet 100 mcg PO DAILY 90 Days Label Comments: hydroxychloroquine 200 mg tablet 200 mg PO BID All Day Allergy (cetirizine) 10 mg capsule 10 mg PO DAILY omeprazole 40 mg capsule,delayed release(DR/EC) 40 mg PO DAILY Qty: 30 2RF sodium bicarbonate 650 MG tablet 1,300 mg PO TID isosorbide dinitrate 10 MG Tablet 10 mg PO BID hydralazine 25 MG Tablet 25 mg PO BID ferrous sulfate 325 MG tablet 325 mg PO BID doxepin 10 MG capsule 20 mg PO HS carvedilol 25 MG tablet 25 mg PO BID chlorthalidone 25 MG tablet 12.5 mg PO DAILY mycophenolate mofetil 500 MG tablet 500 mg PO BID Hold Instructions: pendign stable kidney function dexlansoprazole 60 MG capsule,biphase delayed releas 60 mg PO DAILY fluticasone propionate 120 SPRAY bottle 2 spr NS DAILY calcium carbonate 650 MG tablet 1,200 mg PO TID mirtazapine 15 MG tablet 15 mg PO HS Referrals Follow up/Referrals: Winston Webster MD [Primary Care Provider] - See instructions Clinical Impressions Clinical Impression: Syncope, Hypotension, Dysuria Instructions Patient Instructions: DI for Syncope in Adults (Fainting), DI for Syncope in Children (Fainting) Discharge ED Provider: Paul Martinez General Adult HPI General Chief complaint: Syncope Stated complaint: weakness Time Seen by Provider: 01/07/23 18:44 History of Present Illness HPI narrative: The patient is a 72-year-old female with a history of chronic kidney disease lupus rheumatoid arthritis with a recent hospitalization from urinary tract infection and acute kidney injury presenting today with syncope. History is obtained from EMS primarily as well as with the patient she is a good historian and the patient history corresponds with EMS history. She states that she was feeling weak and that she has felt weak since her last hospitalization. She called her food delivery service at which point the person to deliver her food brought her food down and witnessed her having a syncopal episode. He told EMS that she complained of dizziness prior to this however she does not recall that. She denies having had any chest pain or shortness of breath or abdominal pain or any other symptoms. She states that she feels no different than she has recently however she does admit that she has been weak for quite some time. Her only new symptoms that she did that she endorses is that she has had dysuria over the last week. She is incontinent however states that every time that she does use the bathroom that it higgins significantly. EMS noted that she may have taken too much of her blood pressure medication however the patient denies this and states that she has been taking her medications as prescribed. Her systolic blood pressure was in the 80s upon arrival per EMS they did give her some fluids prior to arrival about unknown. Related Data Home Medications Medication Instructions Recorded Confirmed levothyroxine 100 mcg tablet 100 mcg PO DAILY thyroid 90 days 02/17/18 12/05/22 buspirone 10 mg tablet 10 mg PO BID Anxiety 30 days 06/09/18 12/05/22 cetirizine 10 mg capsule (All Day 10 mg PO DAILY allergies 12/24/19 12/05/22 Allergy (cetirizine)) hydroxychloroquine 200 mg tablet 200 mg PO BID Rheumatoid arthritis 12/24/19 12/05/22 sodium bicarbonate 650 mg tablet 1,300 mg PO TID Supplement 05/31/20 12/05/22 ferrous sulfate 325 mg (65 mg 325 mg PO BID anemia 06/01/20 12/05/22 iron) tablet hydralazine 25 mg tablet 25 mg PO BID Hypertension 06/01/20 12/05/22 isosorbide dinitrate 10 mg tablet 10 mg PO BID Hypertension 06/01/20 12/05/22 mirtazapine 15 mg tablet 15 mg PO HS SLEEP 06/10/21 12/05/22 calcium carbonate 650 mg calcium 1,200 mg PO TID Supplement 05/17/22 0
--- NOTE | 2023-01-07 18:54 | XR_ITS ---
PROCEDURE INFORMATION: Exam: XR Chest Exam date and time: 01/07/2023 7:16 PM Age: 72 years old Clinical indication: Other: Weakness and syncope; Additional info: Weakness, syncope TECHNIQUE: Imaging protocol: Radiologic exam of the chest. Views: 1 view. COMPARISON: CR XR CHEST PORTABLE 05/17/2022 1:36 PM FINDINGS: Lungs: Moderate elevation of the right hemidiaphragm is stable. Postoperative changes overlying the right hilar region are stable. A few minor streaky markings in both lung bases are stable suggestive of parenchymal scarring. The lungs appear otherwise clear. No focal areas of consolidation. Pleural spaces: No pleural effusions or appreciable adenopathy. Negative for pneumothorax. Heart/Mediastinum: Cardiac silhouette and pulmonary vasculature are within range of normal. Bones/joints: There is no evidence of acute fracture. Moderate thoracolumbar scoliosis is stable. IMPRESSION: Negative for an acute cardiopulmonary abnormality. Stable chest radiograph.
--- NOTE | 2023-01-07 19:02 | PC.NURSE ---
RAD at for CXR
--- NOTE | 2023-01-07 19:20 | PC.NURSE ---
pt depend changed at this time and pericare provided before in and out cath. pt tolerated well
[2023-01-07 19:28] LABS: Microscopic, Urine URINE MICROSCOPIC (MICROSCOPIC)
[2023-01-07 19:31] LABS: Eosinophils # 0.1 K/mm3 (0.0-0.4); Lymphocytes # 0.8 K/mm3 (0.7-4.5)
[2023-01-07 19:37] LABS: Appearance,Urine CLOUDY (Clear); Bilirubin,Urine Negative (Negative); Blood, Urine 2+ (Negative); Color,Urine YELLOW (Yellow); Glucose,Urine (UA) Negative (Negative); Ketones,Urine Negative (Negative); Leukocyte Esterase,Urine 2+ (Negative); Nitrate,Urine Negative (Negative); Protein,Urine 2+ (Negative); Specific Gravity, Urine 1.025 (1.005-1.030); Urobilinogen,Urine 0.2 EU/dl (0.2)
[2023-01-07 19:49] LABS: Chloride 105 mmol/L (98-107); Potassium 4.5 mmoL/L (3.5-5.1); Sodium 140 mmol/L (136-145)
[2023-01-07 19:52] LABS: Alanine Aminotransferase 13 U/L (12-78); Albumin Level 3.7 g/dl (3.5-5.0); Albumin/Globulin Ratio 1.5 (1.1-1.8); Alkaline Phosphatase 79 U/L (38-126); Anion Gap 12.5 mEq/L (5-15); Aspartate Amino Transferase 22 U/L (14-36); Bilirubin,Total 0.3 mg/dl (0.2-1.3); Blood Urea Nitrogen 39 mg/dl (7-17); Carbon Dioxide 27 mmol/L (22.0-30.0); Creatinine Clearance Estimated 14 mL/min (50-200); Estimated Glomerular Filt Rate 12 ml/min (>60); GFR (African American) 15 ML/MIN (>60); Globulin 2.5 g/dL (1.3-3.2); Total Protein,Serum 6.2 g/dl (6.3-8.2)
[2023-01-07 19:53] LABS: Calcium 8.3 mg/dl (8.4-10.2); Glucose 100 mg/dl (74-100)
[2023-01-07 20:02] LABS: NT Pro Brain Natriuretic Pep. 1540 pg/mL (0-125)
[2023-01-07 20:06] LABS: Troponin I < 0.01 ng/ml (0.00-0.034)
[2023-01-07 20:24] LABS: Coronavirus 19, PCR Not Detected (NotDetected); Influenza A, PCR Not Detected (NotDetected); Influenza B, PCR Not Detected (NotDetected)
[2023-01-07 20:26] LABS: Basophils % 0.8 % (0.1-2.0); Hematocrit 22.4 % (37.0-47.0); Lymphocytes % 14.8 % (10-50); Mean Corpuscular HGB Conc 31.5 g/dL (31.8-35.4); Mean Corpuscular Hemoglobin 27.6 pg (27.0-31.2); Mean Corpuscular Volume 87.6 fl (81-99); Mean Platelet Volume 7.9 fl (7.4-10.4); Monocytes # 0.4 K/mm3 (0.1-1.0); Monocytes % 7.5 % (1.7-9.3); Neutrophils % 74.9 % (37.0-80.0); Platelet Count 277 K/mm3 (142-424); Red Blood Count 2.55 M/mm3 (4.20-5.40); Red Cell Distribution Width 15.4 % (11.5-17.5); White Blood Count 5.4 K/mm3 (4.8-10.8)
[2023-01-07 20:29] LABS: Bacteria,Urine Trace /lpf; WBC,Urine TNTC #/hpf (0-3)
[2023-01-07 20:48] VITALS: BP 145/72; PULSE 71; RESP 18; TEMP 36.8; O2SAT 97
== END 2023-01-07 20:52 | disposition home or self-care (01) ==
PROVIDERS: Student in an Organized Health Care Education/Training Program; Emergency Provider Emergency Medicine; PCP Internal Medicine Adolescent Medicine
DX: R55 Syncope and collapse (principal); I95.9 Hypotension, unspecified; R53.1 Weakness; R30.0 Dysuria; Z86.79 Personal history of other diseases of the circulatory system; D64.9 Anemia, unspecified; I25.10 Atherosclerotic heart disease of native coronary artery without angina pectoris
CPT/HCPCS: 71045; 80053; 81001; 83880; 84484; 85025; 87086; 93005; 96361; 96365; 99285; C9803; J0696; U0003; U0005

== ENCOUNTER → 2023-02-04 12:32 | Outpatient (CLI) | payer MEDICARE, MEDICAID, SELFPAY ==
[2023-02-04 13:38] LABS: Basophils # 0.1 K/mm3 (0-0.2); Basophils % 1.2 % (0.1-2.0); Eosinophils # 0.2 K/mm3 (0.0-0.4); Eosinophils % 2.7 % (0.1-12.0); Hemoglobin 8.6 g/dL (12.2-16.2); Lymphocytes # 1.4 K/mm3 (0.7-4.5); Lymphocytes % 21.8 % (10-50); Mean Corpuscular HGB Conc 31.9 g/dL (31.8-35.4); Mean Corpuscular Hemoglobin 28.5 pg (27.0-31.2); Mean Corpuscular Volume 89.5 fl (81-99); Mean Platelet Volume 7.7 fl (7.4-10.4); Monocytes # 0.5 K/mm3 (0.1-1.0); Monocytes % 7.1 % (1.7-9.3); Neutrophils # 4.2 K/mm3 (1.8-7.8); Neutrophils % 67.1 % (37.0-80.0); Platelet Count 307 K/mm3 (142-424); Red Blood Count 3.02 M/mm3 (4.20-5.40); Red Cell Distribution Width 15.3 % (11.5-17.5); White Blood Count 6.3 K/mm3 (4.8-10.8)
[2023-02-04 13:47] LABS: Chloride 102 mmol/L (98-107); Sodium 137 mmol/L (136-145)
[2023-02-04 13:48] LABS: Albumin Level 4.1 g/dl (3.5-5.0)
[2023-02-04 13:50] LABS: Anion Gap 18.2 mEq/L (5-15); Blood Urea Nitrogen 44 mg/dl (7-17); Carbon Dioxide 23 mmol/L (22.0-30.0); Estimated Glomerular Filt Rate 10 ml/min (>60); GFR (African American) 12 ML/MIN (>60); Phosphorous 5.9 mg/dl (2.5-4.5)
[2023-02-04 13:51] LABS: Calcium 8.9 mg/dl (8.4-10.2); Glucose 84 mg/dl (74-100)
[2023-02-04 13:59] LABS: Potassium 6.2 mmoL/L (3.5-5.1)
== END ==
PROVIDERS: PCP Internal Medicine Adolescent Medicine; Visit Provider Internal Medicine Nephrology
DX: N18.4 Chronic kidney disease, stage 4 (severe) (principal)
CPT/HCPCS: 36415; 80069; 85025

== ENCOUNTER 2023-02-04 14:43 | Emergency (ER) | payer MEDICARE, MEDICAID, SELFPAY ==
[2023-02-04 14:43] VITALS: BP 172/87; PULSE 75; RESP 15; TEMP 36.7; O2SAT 98; BMI 25.9
--- NOTE | 2023-02-04 14:56 | HMH.EDGENADL ---
Discharge Plan Disposition Patient Disposition: Home, Self-Care Prescriptions Prescriptions: New Lokelma 10 gram powder in packet 10 g PO TID 2 Days Qty: 11 0RF Rx Instructions: for 48 hours No Action buspirone 10 mg tablet 10 mg PO BID 30 Days levothyroxine 100 mcg tablet 100 mcg PO DAILY 90 Days Label Comments: hydroxychloroquine 200 mg tablet 200 mg PO BID All Day Allergy (cetirizine) 10 mg capsule 10 mg PO DAILY omeprazole 40 mg capsule,delayed release(DR/EC) 40 mg PO DAILY Qty: 30 2RF sodium bicarbonate 650 MG tablet 1,300 mg PO TID isosorbide dinitrate 10 MG Tablet 10 mg PO BID hydralazine 25 MG Tablet 25 mg PO BID ferrous sulfate 325 MG tablet 325 mg PO BID doxepin 10 MG capsule 20 mg PO HS carvedilol 25 MG tablet 25 mg PO BID chlorthalidone 25 MG tablet 12.5 mg PO DAILY mycophenolate mofetil 500 MG tablet 500 mg PO BID Hold Instructions: pendign stable kidney function dexlansoprazole 60 MG capsule,biphase delayed releas 60 mg PO DAILY fluticasone propionate 120 SPRAY bottle 2 spr NS DAILY calcium carbonate 650 MG tablet 1,200 mg PO TID cephalexin [cephalexin] 500 mg capsule 500 mg PO TID Qty: 30 0RF mirtazapine 15 MG tablet 15 mg PO HS Referrals Follow up/Referrals: Winston Webster MD [Primary Care Provider] - See instructions Clinical Impressions Clinical Impression: Acute hyperkalemia, CKD (chronic kidney disease) Discharge ED Provider: Ashly Martinez General Adult HPI General Chief complaint: Recheck/Abnormal Lab/Rx Stated complaint: high potassum, phy referal Time Seen by Provider: 02/04/23 14:56 History of Present Illness HPI narrative: Patient is a 72-year-old female sent in by Renay Ayala who is a nurse practitioner working with [facility]. Patient was at the clinic today for routine follow-up with nephrology for chronic kidney disease to get basic labs and found that she had a potassium of 6.2. They do not have the ability to get an EKG. Patient has no symptoms. He is continuing to urinate normally per her. She has been told by them that she may need dialysis at some point. They sent her to the emergency department today. Patient is upset and states that she wants to go home she does not want to be here. She denies any acute symptoms at the moment. She is followed by Dr. Canchola. Related Data Home Medications Medication Instructions Recorded Confirmed levothyroxine 100 mcg tablet 100 mcg PO DAILY thyroid 90 days 02/17/18 12/05/22 buspirone 10 mg tablet 10 mg PO BID Anxiety 30 days 06/09/18 12/05/22 cetirizine 10 mg capsule (All Day 10 mg PO DAILY allergies 12/24/19 12/05/22 Allergy (cetirizine)) hydroxychloroquine 200 mg tablet 200 mg PO BID Rheumatoid arthritis 12/24/19 12/05/22 sodium bicarbonate 650 mg tablet 1,300 mg PO TID Supplement 05/31/20 12/05/22 ferrous sulfate 325 mg (65 mg 325 mg PO BID anemia 06/01/20 12/05/22 iron) tablet hydralazine 25 mg tablet 25 mg PO BID Hypertension 06/01/20 12/05/22 isosorbide dinitrate 10 mg tablet 10 mg PO BID Hypertension 06/01/20 12/05/22 mirtazapine 15 mg tablet 15 mg PO HS SLEEP 06/10/21 12/05/22 calcium carbonate 650 mg calcium 1,200 mg PO TID Supplement 05/17/22 12/05/22 (1,625 mg) tablet carvedilol 25 mg tablet 25 mg PO BID Hypertension 05/17/22 12/05/22 chlorthalidone 25 mg tablet 12.5 mg PO DAILY Fluid 05/17/22 12/05/22 dexlansoprazole 60 mg 60 mg PO DAILY GERD 05/17/22 12/05/22 capsule,biphase delayed release doxepin 10 mg capsule 20 mg PO HS MOOD 05/17/22 12/05/22 fluticasone propionate 50 2 spr intranasal DAILY allergies 05/17/22 12/05/22 mcg/actuation nasal spray,suspension mycophenolate mofetil 500 mg tablet 500 mg PO BID LUPUS 05/17/22 12/05/22 Previous Rx's Medication Instructions Recorded omeprazole 40 mg capsule,delayed 40 mg PO DAILY #30 caps 12/19/22
--- NOTE | 2023-02-04 15:08 | ECG_ITS ---
APPROVED REPORT Exam: Resting ECG HR:71 bpm ECG Measurements Heart Rate 71 AXES HI 170 P 44 QRSd 88 QRS -20 QT 414 T 1 QTc 437 Conclusion SINUS RHYTHM Poor r wave progression UNCONFIRMED REPORT Electronically signed by : Winston Webster MD 02/04/2023 21:00:39
--- NOTE | 2023-02-04 15:13 | PC.NURSE ---
waiting aviation electrician back from dr. chatterjee
[2023-02-04 15:16] LABS: Anion Gap 15.8 mEq/L (5-15); Blood Urea Nitrogen 48 mg/dl (7-17); Calcium 8.9 mg/dl (8.4-10.2); Carbon Dioxide 25 mmol/L (22.0-30.0); Chloride 102 mmol/L (98-107); Creatinine Clearance Estimated 11 mL/min (50-200); Estimated Glomerular Filt Rate 10 ml/min (>60); GFR (African American) 13 ML/MIN (>60); Glucose 81 mg/dl (74-100); Potassium 5.8 mmoL/L (3.5-5.1); Sodium 137 mmol/L (136-145)
--- NOTE | 2023-02-04 15:25 | PC.NURSE ---
GOLDEN SHERMAN speaking with dr. chatterjee
--- NOTE | 2023-02-04 15:29 | PC.NURSE ---
verbal order from dr. webster for repeat lab work (BMP) on 02/06/23, outpatient order given to pt. Dr. Webster reports his office will take care of f/u for pt.
[2023-02-04 15:30] VITALS: BP 158/81; PULSE 72; RESP 18; O2SAT 98
[2023-02-04 16:00] VITALS: BP 165/81; PULSE 66; RESP 16; O2SAT 99
[2023-02-04 16:14] VITALS: BP 165/81; PULSE 66; RESP 16; TEMP 36.7; O2SAT 99
== END 2023-02-04 16:14 | disposition home or self-care (01) ==
PROVIDERS: Emergency Provider Student in an Organized Health Care Education/Training Program; PCP Internal Medicine Adolescent Medicine
DX: E87.5 Hyperkalemia (principal); N18.9 Chronic kidney disease, unspecified; D64.9 Anemia, unspecified; I25.10 Atherosclerotic heart disease of native coronary artery without angina pectoris; Z86.79 Personal history of other diseases of the circulatory system; Z87.09 Personal history of other diseases of the respiratory system
CPT/HCPCS: 36415; 80048; 80069; 85025; 93005; 99283; 99284; 99285

== ENCOUNTER → 2023-02-06 17:10 | Outpatient (CLI) | payer MEDICARE, MEDICAID, SELFPAY ==
[2023-02-06 19:01] LABS: Anion Gap 19.7 mEq/L (5-15); Blood Urea Nitrogen 49 mg/dl (7-17); Calcium 8.3 mg/dl (8.4-10.2); Carbon Dioxide 19 mmol/L (22.0-30.0); Chloride 103 mmol/L (98-107); Estimated Glomerular Filt Rate 10 ml/min (>60); GFR (African American) 12 ML/MIN (>60); Glucose 67 mg/dl (74-100); Potassium 4.7 mmoL/L (3.5-5.1); Sodium 137 mmol/L (136-145)
== END ==
PROVIDERS: PCP Internal Medicine Adolescent Medicine; Visit Provider Internal Medicine Adolescent Medicine
DX: E87.5 Hyperkalemia (principal); R79.89 Other specified abnormal findings of blood chemistry
CPT/HCPCS: 80048

== ENCOUNTER → 2023-06-26 13:23 | Outpatient (CLI) | payer MEDICARE, MEDICAID, OTHER, SELFPAY ==
[2023-06-26 13:35] LABS: Microscopic, Urine URINE MICROSCOPIC (MICROSCOPIC)
[2023-06-26 14:02] LABS: Appearance,Urine CLEAR (Clear); Bilirubin,Urine Negative (Negative); Blood, Urine 3+ (Negative); Color,Urine YELLOW (Yellow); Glucose,Urine (UA) Negative (Negative); Ketones,Urine Negative (Negative); Leukocyte Esterase,Urine 2+ (Negative); Nitrate,Urine POSITIVE (Negative); PH,Urine 6.5 (5.0-8.5); Protein,Urine 2+ (Negative); Specific Gravity, Urine 1.015 (1.005-1.030); Urobilinogen,Urine 0.2 EU/dl (0.2)
[2023-06-26 15:00] LABS: Bacteria,Urine 1+ /lpf; RBC,Urine 20-50 #/hpf (0-3); Squamous Epithelial Cell,Urine Occasional #/hpf (0-5); WBC,Urine 20-50 #/hpf (0-3)
== END ==
PROVIDERS: PCP Internal Medicine Adolescent Medicine; Visit Provider Internal Medicine Adolescent Medicine
DX: N18.6 End stage renal disease (principal); B96.89 Other specified bacterial agents as the cause of diseases classified elsewhere
CPT/HCPCS: 81001; 87086; 87088; 87186

== ENCOUNTER 2024-02-21 13:39 | Outpatient (CLI) | payer MEDICARE, SELFPAY ==
[2024-02-21 13:49] LABS: Microscopic, Urine URINE MICROSCOPIC (MICROSCOPIC)
[2024-02-21 14:31] LABS: Appearance,Urine CLEAR (Clear); Bacteria,Urine Trace /lpf; Bilirubin,Urine Negative (Negative); Blood, Urine 2+ (Negative); Color,Urine YELLOW (Yellow); Glucose,Urine (UA) Negative (Negative); Ketones,Urine Negative (Negative); Leukocyte Esterase,Urine TRACE (Negative); Nitrate,Urine Negative (Negative); PH,Urine 6.5 (5.0-8.5); Protein,Urine 2+ (Negative); Squamous Epithelial Cell,Urine Occasional #/hpf (0-5); Urobilinogen,Urine 0.2 EU/dl (0.2)
[2024-02-21 14:32] LABS: WBC,Urine Occasional #/hpf (0-3)
[2024-02-21 14:52] LABS: Hematocrit 28.4 % (37.0-47.0); Hemoglobin 8.8 g/dL (12.2-16.2); Mean Corpuscular Hemoglobin 28.8 pg (27.0-31.2); Platelet Count 336 K/mm3 (142-424); Red Blood Count 3.05 M/mm3 (4.20-5.40); Red Cell Distribution Width 14.8 % (11.5-17.5); White Blood Count 4.9 K/mm3 (4.8-10.8)
[2024-02-21 14:55] LABS: Chloride 105 mmol/L (98-107); Sodium 140 mmol/L (136-145)
[2024-02-21 14:56] LABS: Albumin Level 3.6 g/dl (3.5-5.0); Potassium 4.1 mmoL/L (3.5-5.1)
[2024-02-21 14:58] LABS: Anion Gap 16.1 mEq/L (5-15); Blood Urea Nitrogen 56 mg/dl (7-17); Carbon Dioxide 23 mmol/L (22.0-30.0); Estimated Glomerular Filt Rate 19 ml/min (>60); GFR (African American) 23 ML/MIN (>60)
[2024-02-21 14:59] LABS: Calcium 8.2 mg/dl (8.4-10.2); Glucose 101 mg/dl (74-100)
[2024-02-21 15:01] LABS: Creatinine,Urine Random 52 mg/dL (Not Estab.)
[2024-02-21 15:18] LABS: 25-OH Vitamin D, Total 37.9 ng/mL (30-100)
[2024-02-21 15:45] LABS: Microalbumin/Creatinine Ratio 1667.1
[2024-02-28 10:14] LABS: PTH Related Peptide < 2.0
== END 2024-02-21 23:59 ==
LOC: LAB 13:42
PROVIDERS: PCP Internal Medicine Adolescent Medicine; Visit Provider Internal Medicine Nephrology
DX: N18.4 Chronic kidney disease, stage 4 (severe) (principal)
CPT/HCPCS: 36415; 80069; 81001; 82043; 82306; 82397; 82570; 84156; 85014; 85018; 85048; 85049

== ENCOUNTER 2024-06-12 11:08 | Observation (INO) | payer MEDICARE, SELFPAY ==
[2024-06-12] VITALS (11 sets, daily range): BP systolic 114–178; BP diastolic 64–85; PULSE 66–90; RESP 16–23; TEMP 36.6–37; O2SAT 96–99; BMI 23.8; BMI 24.5
--- NOTE | 2024-06-12 11:11 | PC.NURSE ---
stroke alert at this time.
--- NOTE | 2024-06-12 11:12 | CT_ITS ---
FINAL REPORT TECHNIQUE: Thin section axial CT with IV contrast supplemented with multiplanar reconstruction under CT angiogram protocol. This study was performed with techniques to keep radiation doses as low as reasonably achievable (ALARA). Individualized dose reduction techniques using automated exposure control or adjustment of mA and/or kV according to the patient''s size were employed. NASCET criteria was utilized during interpretation. CLINICAL HISTORY: possible stroke COMPARISON: None FINDINGS: Aortic arch: Arch shows no significant narrowing. Great vessel origins are widely patent. Right carotid: Calcified plaque at the carotid bifurcation with less than 50% stenosis. Left carotid: Calcified plaque at the carotid bifurcation with less than 50% stenosis. Vertebral: Vertebral arteries are codominant. No significant stenosis is present. IMPRESSION: No significant stenosis. Reviewed, Interpreted and Dictated by Eduardo Maloney III, MD Transcribed by Margaret Cody Authenticated and [facility]
--- NOTE | 2024-06-12 11:12 | CT_ITS ---
FINAL REPORT TECHNIQUE: Thin section axial CT with IV contrast supplemented with multiplanar reconstruction under CT angiogram protocol. 3-D reconstructions were performed. This study was performed with techniques to keep radiation doses as low as reasonably achievable (ALARA). Individualized dose reduction techniques using automated exposure control or adjustment of mA and/or kV according to the patient''s size were employed. CLINICAL HISTORY: possible stroke COMPARISON: None FINDINGS: No aneurysm is seen. Major intracranial vessels are patent without significant stenosis. IMPRESSION: No evidence of occlusion or significant stenosis. Reviewed, Interpreted and Dictated by Eduardo Maloney III, MD Transcribed by Margaret Cody Authenticated and [facility]
--- NOTE | 2024-06-12 11:12 | CT_ITS ---
FINAL REPORT CLINICAL HISTORY: possible stroke COMPARISON: 06/09/2021 FINDINGS: Axial images of the head were obtained without contrast. Coronal reformatted images were also obtained. This study was performed with techniques to keep radiation doses as low as reasonably achievable (ALARA). Individualized dose reduction techniques using automated exposure control or adjustment of mA and/or kV according to the patient's size were employed. There is generalized age-appropriate atrophy. Periventricular low-attenuation areas are seen consistent with moderate chronic ischemic changes. There is no evidence of intracranial hemorrhage or mass. There are several chronic lacunar infarcts, some of which are new compared to the prior study. There is no evidence of acute infarct. There is no evidence of shift of the midline structures. No skull abnormality is seen on the bone window images. IMPRESSION: Atrophy and mild periventricular chronic ischemic changes. No acute intracranial abnormality identified. Reviewed, Interpreted and Dictated by Eduardo Maloney III, MD Transcribed by Margaret Cody Authenticated and [facility]
[2024-06-12] MEDS: SODIUM CHLORIDE 0.9% 10ML SYR (RAD ONLY) 10 ML IV (11:17)
[2024-06-12] MEDS: 0.9 % SODIUM CHLORIDE 50 ML VIAL IV (11:17)
[2024-06-12] MEDS: IOPAMIDOL-370 (76%);100ML BOTTLE 80 ML IV (11:18)
[2024-06-12 11:23] LABS: Basophils # 0.1 K/mm3 (0-0.2); Eosinophils # 0.1 K/mm3 (0.0-0.4); Eosinophils % 1.6 % (0.1-12.0); Hematocrit 23.6 % (37.0-47.0); Hemoglobin 7.5 g/dL (12.2-16.2); Lymphocytes # 0.6 K/mm3 (0.7-4.5); Mean Corpuscular HGB Conc 31.8 g/dL (31.8-35.4); Mean Corpuscular Hemoglobin 28.1 pg (27.0-31.2); Mean Corpuscular Volume 88.2 fl (81-99); Mean Platelet Volume 7.9 fl (7.4-10.4); Monocytes # 0.3 K/mm3 (0.1-1.0); Monocytes % 6.7 % (1.7-9.3); Neutrophils # 3.7 K/mm3 (1.8-7.8); Neutrophils % 77.7 % (37.0-80.0); Platelet Count 245 K/mm3 (142-424); Red Blood Count 2.68 M/mm3 (4.20-5.40); Red Cell Distribution Width 15.4 % (11.5-17.5); White Blood Count 4.7 K/mm3 (4.8-10.8)
[2024-06-12 11:36] LABS: Alanine Aminotransferase 11 U/L (12-78); Albumin Level 3.4 g/dl (3.5-5.0); Albumin/Globulin Ratio 1.3 (1.1-1.8); Alkaline Phosphatase 96 U/L (38-126); Anion Gap 10.2 mEq/L (5-15); Aspartate Amino Transferase 20 U/L (14-36); Bilirubin,Total 0.2 mg/dl (0.2-1.3); Blood Urea Nitrogen 45 mg/dl (7-17); Calcium 8.4 mg/dl (8.4-10.2); Carbon Dioxide 24 mmol/L (22.0-30.0); Chloride 108 mmol/L (98-107); Chol/HDL Ratio 4.4 (1-3.5); Cholesterol 189 mg/dl (140-200); Creatinine Clearance Estimated 18 mL/min (50-200); Estimated Glomerular Filt Rate 17 ml/min (>60); GFR (African American) 21 ML/MIN (>60); Globulin 2.7 g/dL (1.3-3.2); Glucose 101 mg/dl (74-100); HDL Cholesterol 43 mg/dl (40-60); Potassium 4.2 mmoL/L (3.5-5.1); Sodium 138 mmol/L (136-145); Total Protein,Serum 6.1 g/dl (6.3-8.2); Triglycerides 161 mg/dl (30-150); VLDL Cholesterol 32 mg/dL (0-40)
--- NOTE | 2024-06-12 11:37 | ED_ITS ---
Discharge Plan Disposition Patient Disposition: Admitted Condition: Fair Chief Complaint: Neuro Symptoms/Deficit Prescriptions Prescriptions: No Action buspirone 10 mg tablet 10 mg PO BID 30 Days levothyroxine 100 mcg tablet 100 mcg PO DAILY 90 Days Patient Comments: hydroxychloroquine 200 mg tablet 200 mg PO BID All Day Allergy (cetirizine) 10 mg capsule 10 mg PO DAILY omeprazole 40 mg capsule,delayed release(DR/EC) 40 mg PO DAILY Qty: 30 2RF sodium bicarbonate 650 MG tablet 1,300 mg PO TID isosorbide dinitrate 10 MG Tablet 10 mg PO BID hydralazine 25 MG Tablet 25 mg PO BID ferrous sulfate 325 MG tablet 325 mg PO BID doxepin 10 MG capsule 20 mg PO HS carvedilol 25 MG tablet 25 mg PO BID chlorthalidone 25 MG tablet 12.5 mg PO DAILY mycophenolate mofetil 500 MG tablet 500 mg PO BID Hold Instructions: pendign stable kidney function dexlansoprazole 60 MG capsule,biphase delayed releas 60 mg PO DAILY fluticasone propionate 120 SPRAY bottle 2 spr NS DAILY calcium carbonate 650 MG tablet 1,200 mg PO TID mirtazapine 15 MG tablet 15 mg PO HS Lokelma 10 gram powder in packet 10 g PO TID 2 Days Qty: 11 0RF Rx Instructions: for 48 hours Referrals Follow up/Referrals: Provider,Referral, MD [Primary Care Provider] - See instructions Clinical Impressions Clinical Impression: Left-sided weakness, UTI (urinary tract infection), Hypomagnesemia Stand Alone Forms Stand Alone Forms: Transfer Record - ED Discharge ED Provider: Tone Styles Adult HPI General Chief complaint: Neuro Symptoms/Deficit Stated complaint: possible stroke Time Seen by Provider: 06/12/24 11:11 Mode of Arrival: EMS Source of Information: Patient and EMS Limitations: Physical Limitations Description of Symptoms (Recalled from ER Triage Doc. by RN): pt c/o weakness on left side begin at around 0800 this AM. EMS reported hypotensive upon pickup. History of Present Illness HPI narrative: 74-year-old female with past medical history significant for CAD, CKD 3, lupus, hypothyroid, hypertension, HTN, HLD, presents today for evaluation concerning left upper extremity and left lower extremity weakness onset around 9 AM this morning per patient. She states that she has been generally weak over the past few days. She denies having any nausea, vomiting, fevers, chills, headaches, chest pain or shortness of breath. Denies any speech difficulty or visual disturbances. EMS reports that patient's blood pressure was 87/44 on arrival after which they gave 250 mL of IV fluids. Blood pressure after fluids was 98/54. No further complaints at this time. Related Data Home Medications Medication Instructions Recorded Confirmed levothyroxine 100 mcg tablet 100 mcg PO DAILY thyroid 90 days 02/17/18 03/25/24 buspirone 10 mg tablet 10 mg PO BID Anxiety 30 days 06/09/18 03/25/24 cetirizine 10 mg capsule (All Day 10 mg PO DAILY allergies 12/24/19 03/25/24 Allergy (cetirizine)) hydroxychloroquine 200 mg tablet 200 mg PO BID Rheumatoid arthritis 12/24/19 03/25/24 sodium bicarbonate 650 mg tablet 1,300 mg PO TID Supplement 05/31/20 03/25/24 ferrous sulfate 325 mg (65 mg 325 mg PO BID anemia 06/01/20 03/25/24 iron) tablet hydralazine 25 mg tablet 25 mg PO BID Hypertension 06/01/20 03/25/24 isosorbide dinitrate 10 mg tablet 10 mg PO BID Hypertension 06/01/20 03/25/24 mirtazapine 15 mg tablet 15 mg PO HS SLEEP 06/10/21 03/25/24 calcium carbonate 1,200 mg PO TID Supplement 05/17/22 03/25/24 carvedilol 25 mg tablet 25 mg PO BID Hypertension 05/17/22 03/25/24 chlorthalidone 25 mg tablet 12.5 mg PO DAILY Fluid 05/17/22 03/25/24 dexlansoprazole 60 mg 60 mg PO DAILY GERD 05/17/22 03/25/24 capsule,biphase delayed release doxepin 10 mg capsule 20 mg PO HS MOOD 05/17/22 03/25/24 fluticasone propionate 50 2 spr intranasal DAILY allergies 05/17/22 03/25/24 mcg/actuation nasal spray,suspension mycophenolate mofetil 500 mg tablet 500 mg PO BID LUPUS 05/17/22 03/25/24 Previous Rx's Medication Instructions Recorded omeprazole 40 mg capsule,delayed 40 mg PO DAILY #30 caps 12/19/22 release sodium zirconium cyclosilicate 10 10 g PO TID 2 days #11 ea 02/04/23 gram oral powder packet (Lokelma) Allergies Allergy/AdvReac Type Severity Reaction Status Date / Time ANDREWS Inhibitors Allergy Severe Swelling Verified 03/25/24 11:01 of Lip/Tongue/Throat latex Allergy Intermediate Hives Verified 03/25/24 11:01 morphine Allergy Intermediate Hives Verified 03/25/24 11:01 PFSH [facility] Disclaimer: The information contained in this section may have been updated after the patient was seen, as this information can be updated by other users. Medical History Abnormal EKG Abnormal cardiovascular stress test Atypical angina Anemia Coronary artery calcification seen on CT scan Dyspnea Chest pain Social History Smoking Status: Unknown if ever smoked alcohol intake: never substance use type: denies use current occupational status: other Travel in the last 8 weeks: None household members: none housing: house caffeine: Yes ROS Obtained: Yes All systems reviewed & no additional complaints except as documented Physical Exam General General appearance: alert and in no apparent distress Head Head exam: atraumatic and normocephalic Eye Eye exam: Present normal appearance, PERRL and EOMI ENT ENT exam: Present normal oropharynx and mucous membranes moist Neck Neck exam: Present full ROM; Absent meningismus Respiratory Respiratory exam: Absent respiratory distress, wheezes, stridor or accessory muscle use Cardiovascular Cardiovascular exam: Present normal rhythm Abdominal Exam Abdominal exam: Present soft; Absent distention, tenderness, guarding, rebound or rigidity Neurological Exam Neurological exam: Present alert, oriented X3, CN II-XII intact and other (4/5 strength in left upper and left lower extremity); Absent motor sensory deficit Psychiatric Psychiatric exam: Present normal affect and normal mood Skin Skin exam: Present warm and dry Medical Decision Making Medical Records Medical records reviewed: Yes I reviewed the patient's medical records. Edmund Inquiry Pt receiving controlled substance: No Edmund was queried for this patient: No Vital Signs: 06/12/24 11:12 06/12/24 11:31 06/12/24 11:38 Pulse Rate 76 70 Pulse Rate [Right Radial] 66 Respiratory Rate 18 18 17 Blood Pressure 120/65 160/77 H Blood Pressure [Right Arm] 129/71 Blood Pressure Mean [Right Arm] 90 Blood Pressure Source [Right Arm] Automatic Cuff 02 Sat by Pulse Oximetry 98 96 99 Oxygen Delivery Method Room Air Nasal Cannula 06/12/24 12:01 06/12/24 12:45 06/12/24 13:00 Pulse Rate 71 68 68 Pulse Rate [Right Radial] Respiratory Rate 20 19 23 Blood Pressure 163/81 H 168/85 H 178/83 H Blood Pressure [Right Arm] Blood Pressure Mean [Right Arm] Blood Pressure Source [Right Arm] 02 Sat by Pulse Oximetry 96 97 96 Oxygen Delivery Method 06/12/24 13:30 Pulse Rate 68 Pulse Rate [Right Radial] Respiratory Rate 20 Blood Pressure 166/74 H Blood Pressure [Right Arm] Blood Pressure Mean [Right Arm] Blood Pressure Source [Right Arm] 02 Sat by Pulse Oximetry 97 Oxygen Delivery Method Lab Data Lab Results 06/12/24 11:09: WBC 4.7 L, RBC 2.68 L, Hgb 7.5 L, Hct 23.6 L, MCV 88.2, MCH 28.1, MCHC 31.8, RDW 15.4, Plt Count 245, MPV 7.9, Neut % (Auto) 77.7, Lymph % (Auto) 13.0, [place] % (Auto) 6.7, Eos % (Auto) 1.6, Baso % (Auto) 1.0, Neut # (Auto) 3.7, Lymph # (Auto) 0.6 L, [place] # (Auto) 0.3, Eos # (Auto) 0.1, Baso # (Auto) 0.1, PT 10.5, INR 0.93, APTT 23.4, Sodium 138, Potassium 4.2, Chloride 108 H, Carbon Dioxide 24, Anion Gap 10.2, BUN 45 H, Creatinine 2.70 H, Estimated Creat Clear 18, Estimated GFR 17 L*, Est GFR ( Amer) 21 L, Glucose 101 H, Lactate 0.9, Calcium 8.4, Magnesium 1.5 L, Total Bilirubin 0.2, AST 20, ALT 11 L , Alkaline Phosphatase 96, Troponin I < 0.01, Total Protein 6.1 L, Albumin 3.4 L , Globulin 2.7, Albumin/Globulin Ratio 1.3, Triglycerides 161 H, Cholesterol 189, LDL Cholesterol Direct 67.06 L, VLDL Cholesterol 32, HDL Cholesterol 43, C holesterol/HDL Ratio 4.4 H, Plasma/Serum Alcohol < 10 06/12/24 12:53: Urine Color Yellow, Urine Appearance Cloudy, Urine pH 7.0, Ur Specific [place] 1.015, Urine Protein 2+, Urine Glucose (UA) Negative, Urine Ketones Negative, Urine Blood 1+, Urine Nitrate Negative, Urine Bilirubin Negative, Urine Urobilinogen 0.2, Ur Leukocyte Esterase 2+ A, Urine RBC 3-5, Urine WBC 20-50, Ur Squamous Epith Cells None, Urine Bacteria 3+ 06/12/24 12:55: Urine Opiates Screen Negative, Urine Methadone Screen Negative, Ur Barbituates Screen Negative, Ur Phencyclidine Scrn Negative, Ur Amphetamines Screen Negative, U Benzodiazepines Scrn Negative, Urine Cocaine Screen Negative, U Marijuana (THC) Screen Negative 06/12/24 11:09 06/12/24 11:09 Orders (Tests/Meds): ED MEDICATIONS Generic Name Dose Route Start Last Admin Trade Name Freq PRN Reason Stop Dose Admin Magnesium Sulfate 2 gm in 50 mls @ 50 mls/hr 06/12/24 13:15 06/12/24 13:04 Magnesium Sulfate 2gm/50ml Premix IV 06/12/24 14:14 50 mls/hr ONCE ONE Administration Ceftriaxone Sodium 1 gm/ 50 mls @ 100 mls/hr 06/12/24 13:45 Sodium Chloride IV 06/22/24 13:44 Q24H DEVON Discontinued Medications Generic Name Dose Route Start Last Admin Trade Name Freq PRN Reason Stop Dose Admin Iopamidol 80 ml 06/12/24 11:16 06/12/24 11:18 Iopamidol-370 (76%);100ml Bottle IV 06/12/24 11:17 80 ml ONCE ONE Administration Sodium Chloride 10 ml 06/12/24 11:16 06/12/24 11:17 Sodium Chloride 0.9% 10ml Syr (Rad Only) IV 06/12/24 11:17 10 ml ONCE ONE Administration Sodium Chloride 50 ml 06/12/24 11:16 06/12/24 11:17 0.9 % Sodium Chloride 50 Ml Vial IV 06/12/24 11:17 50 ml ONCE ONE Administration Tenecteplase 16 mg 06/12/24 12:30 06/12/24 12:42 Tenecteplase 50mg Vial IV 06/12/24 12:31 Not Given ONCE ONE ORDERS Category Date Time Status CT angio head Stat Cat Scan 06/12/24 11:[address] angio neck Stat Cat Scan 06/12/24 11:[address] head/brain wo con Stat Cat Scan 06/12/24 11:12 Completed Activated Partial Thrombo Time Stat Lab 06/12/24 11:09 Completed Complete Blood Count Auto Diff Stat Lab 06/12/24 11:09 Completed Comprehensive Metabolic Panel Stat Lab 06/12/24 11:09 Completed Drug Screen,Urine Stat Lab 06/12/24 12:55 Completed Ethyl Alcohol Stat Lab 06/12/24 11:09 Completed Lactic Acid Stat Lab 06/12/24 11:09 Completed Lipid Panel Stat Lab 06/12/24 11:09 Completed Magnesium Stat Lab 06/12/24 11:09 Completed Prothrombin Time INR Stat Lab 06/12/24 11:09 Completed Troponin I Q3H Lab 06/12/24 14:15 Ordered Troponin I Q3H Lab 06/12/24 17:15 Ordered Troponin I Stat Lab 06/12/24 11:09 Completed Urinalysis and Microscopic Stat Lab 06/12/24 12:53 Completed Urine Culture Stat Micro 06/12/24 12:53 Received ECG Request Stat Y 06/12/24 11:12 Ordered HEART Score History (anamnesis): Slightly suspicious ECG: Non-specific disturbance Age: >65 years Risk factors: Atherosclerosis history Troponin: </= normal limit HEART Score: 5 Medical Decision Narrative: 74-year-old female with past medical history significant for CAD, CKD 3, lupus, hypothyroid, hypertension, HTN, HLD, presents today for evaluation concerning left upper extremity and left lower extremity weakness onset around 9 AM this morning per patient. She states that she has been generally weak over the past few days. She denies having any nausea, vomiting, fevers, chills, headaches, chest pain or shortness of breath. Denies any speech difficulty or visual disturbances. EMS reports that patient's blood pressure was 87/44 on arrival after which they gave 250 mL of IV fluids. Blood pressure after fluids was 98/54. Of note, patient also complains of dysuria. Of note, patient's family members are at bedside and note that patient's symptoms today are similar to a past episode where her magnesium was noted to be low. On assessment she was hemodynamically stable and in no acute distress. Afebrile. Chest clear to auscultation bilaterally. Abdomen soft nondistended and nontender to palpation. She is alert and oriented to person place time and situation. She did have 4 out of 5 strength in the left upper and left lower extremities. No other focal neurodeficits. Differential diagnoses include but limited to CVA, TIA, ACS, electrolyte disturbance, dehydration, UTI, among others. Patient was stroke alerted and taken to the CT scanner immediately and on my informal interpretation of CT head and CTA head/neck, I did not note any acute abnormalities such as occlusions or head bleeds. Radiology report confirmed. I did consult with neurology at and discussed management and did not recommend thrombolytics at this time given no contraindications.also agreed to evaluate patient upon arrival to the ED. I did have discussion with family and patient concerning tenecteplase including risks versus benefits and family/patient has elected to forego tenecteplase at this time given that patient's symptoms are improving. I again discussed risk versus benefits and patient/family again noted that they would like to forego tenecteplase at this time. Her EKG was with normal sinus rhythm with a rate of 69 bpm. No ischemic changes. Patient's hemoglobin with stable anemia at 7.5. Creatinine 2.7, at baseline. Magnesium was noted to be 1.5. I did order for 2 g of magnesium for replacement. I did troponin less than 0.01. Triglycerides 161. Urinalysis with signs of UTI with positive leukocyte esterase, 20-50 WBCs. Negative UDS. On reassessment, patient and family have now noted that they do not want to be transferred to and given that patient has low magnesium and a UTI, they desire to stay here at [facility] for admission. I discussed that we do not have neurology here and the patient may need further care however they did verbalize understanding and noted desire for admission here. Risks and benefits were explained and understanding was verbalized. I did consult with hospital medicine and discussed management and they have agreed to evaluate and admit. Patient remains stable and in no acute distress at this time Critical Care Critical Care Time Critical Care Time: No Total Time Total Critical Care Time: 35
--- NOTE | 2024-06-12 11:38 | ECG_ITS ---
APPROVED REPORT Exam: Resting ECG HR:69 bpm ECG Measurements Heart Rate 69 AXES UT 191 P 64 QRSd 114 QRS -20 QT 462 T 59 QTc 480 Conclusion SINUS RHYTHM MODERATE INTRAVENTRICULAR CONDUCTION DELAY [110+ ms QRS DURATION] PROLONGED QT INTERVAL ABNORMAL ECG UNCONFIRMED REPORT Electronically signed by : JOE PITTMAN, 06/12/2024 16:27:50
[2024-06-12 11:42] LABS: Ethyl Alcohol < 10 mg/dl (0-10); Lactic Acid 0.9 mmol/L (0.7-2.1)
--- NOTE | 2024-06-12 11:42 | PC.NURSE ---
House notified of admission, Step-down per Dr. Stlyes
[2024-06-12 11:47] LABS: Direct LDL Cholesterol 67.06 mg/dL (100-129)
--- NOTE | 2024-06-12 11:48 | PC.NURSE ---
calling [facility] at this time
[2024-06-12 11:49] LABS: Activated Partial Thrombo Time 23.4 seconds (22.8-30.6); INR 0.93 (0.9-1.1); Prothrombin Time 10.5 seconds (10.1-12.5)
[2024-06-12 11:50] LABS: Troponin I < 0.01 ng/ml (0.00-0.034)
[2024-06-12 12:12] LABS: Magnesium 1.5 mg/dl (1.6-2.3)
--- NOTE | 2024-06-12 12:40 | PC.NURSE ---
pt daughter and family refused for pt to have tnk at this time, at the bs
--- NOTE | 2024-06-12 12:55 | PC.NURSE ---
Addendum entered by Shobha Winters RN 06/12/24 13:00: Dr. Styles notified of this. Original Note: Family s/w March B RN & myself in regards to being transferred to [facility]. They are not willing to be transferred until the magnesium and urine come back.
[2024-06-12 12:58] LABS: Microscopic, Urine URINE MICROSCOPIC (MICROSCOPIC)
--- NOTE | 2024-06-12 13:03 | PC.NURSE ---
Called radiology to check on the status of the head cta results.
[2024-06-12] MEDS: MAGNESIUM SULFATE IN WATER 2 GM/50 ML PIGGYBACK IV (13:04)
[2024-06-12 13:15] LABS: Appearance,Urine CLOUDY (Clear); Bilirubin,Urine Negative (Negative); Blood, Urine 1+ (Negative); Color,Urine YELLOW (Yellow); Glucose,Urine (UA) Negative (Negative); Ketones,Urine Negative (Negative); Leukocyte Esterase,Urine 2+ (Negative); Nitrate,Urine Negative (Negative); Protein,Urine 2+ (Negative); Specific Gravity, Urine 1.015 (1.005-1.030); Urobilinogen,Urine 0.2 EU/dl (0.2)
[2024-06-12 13:28] LABS: Amphetamine/Metha Screen,Urine Negative ng/ml (<1000)
[2024-06-12 13:29] LABS: Barbiturates Screen,Urine Negative ng/ml (<200); Benzodiazepines Screen,Urine Negative ng/ml (<200)
[2024-06-12 13:30] LABS: Cannabinoid Screen,Urine Negative ng/ml (<50)
[2024-06-12 13:31] LABS: Cocaine Screen,Urine Negative ng/ml (<300); Methadone Screen,Urine Negative ng/ml (<300)
[2024-06-12 13:32] LABS: Opiate Screen,Urine Negative ng/ml (<300)
[2024-06-12 13:39] LABS: Phencyclidine Screen,Urine Negative ng/ml (<25)
[2024-06-12 13:40] LABS: Bacteria,Urine 3+ /lpf; WBC,Urine 20-50 #/hpf (0-3)
--- NOTE | 2024-06-12 14:05 | PC.NURSE ---
in room talking with patient at this time
[2024-06-12] MEDS: CEFTRIAXONE 1 GM 1 GM in 0.9 % SODIUM CHLORIDE 50 ML IV ×2 (14:15→16:11)
--- NOTE | 2024-06-12 14:20 | PC.NURSE ---
Gave report to Damion PINEDO on med/surg
[2024-06-12 14:42] LABS: Troponin I < 0.01 ng/ml (0.00-0.034)
--- NOTE | 2024-06-12 14:52 | PC.NURSE ---
arrived by stretcher from ED
--- NOTE | 2024-06-12 15:11 | HMH.PHAINT1 ---
Pharmacy Intervention Comments: MEDICATION RECONCILIATION COMPLETE USING LIST PROVIDED BY PATIENT, EXTERNAL PHARMACY FILL HISTORY, AND CARY REPORT.
--- NOTE | 2024-06-12 15:34 | CA_ITS ---
APPROVED REPORT EXAM: Comprehensive 2D, Doppler, and color-flow Echocardiogram Bathing Suit Maker: Breana Walker RT(R) Ht: 5 ft 0 in Wt: 127lbs BSA: 1.54 BP: 160/77 mmHg Indications: HTN, hyperlipdemia, left sided weakness, CAD 2D Dimensions LA Volume 38.20 mL LA Volume Index 24.81 mL/m2 (M/F) 16-34 EF AP4 47.40 % GL Strain -13.9 % M-Mode Dimensions RVDd 1.78 cm (0.9-2.6) LA Diam 4.23 cm (1.9-4.0) LVDd 5.59 cm (3.5-5.7) LVDs 4.17 cm (3.5-5.7) IVSd 0.78 cm (0.6-1.1) PWd 0.82 cm (0.6-1.1) EF (Teich) 49.50% FS 25.40% EDV (Teich) 153.00 mL ESV (Teich) 77.30 mL LV Diastology E Decel Time 173 (160-240 msec) E/A Ratio 0.7 Mitral Valve MV E Max Enrique. 73.0 (40-130 cm/s) MV A Velocity 108.0 (40-130 cm/s) E/A Ratio 0.67 MV PHT 51.0 ms Tricuspid Valve TR P. Velocity 268.00 cm/s RAP Estimate 10.00 mmHg RVSP 38.70 mmHg Left Ventricle The left ventricle is normal size. The left ventricular systolic function is low normal. There is increased LV wall thickness. There is borderline global hypokinesis present. There is mild hypokinesis of the septal, inferoseptal, and anterior septal LV arvizu. Transmitral Doppler flow pattern suggests impaired LV relaxation. LVEF is 50%. Right Ventricle The right ventricle is normal size. The right ventricular systolic function is normal. Atria The left atrium size is normal. The right atrium size is normal. There is no Doppler evidence of interatrial shunt. Aortic Valve The aortic valve is mildly thickened. There is no aortic valvular stenosis. Trace aortic regurgitation. Mitral Valve The mitral valve leaflets are mildly thickened. No evidence of mitral valve stenosis. Mild mitral regurgitation. Tricuspid Valve The tricuspid valve leaflets are not well-visualized. Mild tricuspid regurgitation. RVSP is 30-35 mmHg. Pulmonic Valve The pulmonic valve leaflets are not well-visualized. Trace pulmonic regurgitation. Great Vessels The aortic root is not well-visualized. IVC is normal in size and collapses >50% with inspiration. Pericardium There is no pericardial effusion. Other Information Study Quality: Technically Difficult Conclusion Technically difficult study due to poor acoustic windows. Low normal LV systolic function (LVEF 50%). Mild hypokinesis of the septal, inferoseptal, and anterior septal LV arvizu. Mild MR, mild TR. RVSP is 30-35 mmHg. Electronically signed by : Melanie Darden MD 06/12/2024 21:53:22
--- NOTE | 2024-06-12 15:34 | CA_ITS ---
FINAL REPORT TECHNIQUE: Color Doppler, duplex Doppler and weiner scale sonography of the bilateral neck vasculature was performed. Velocities were measured in the carotid arteries. Stenosis evaluation based on velocity criteria. CLINICAL HISTORY: r/o CVA, left sided weakness, hypotension, hyperlipidemia, CAD, SOB COMPARISON: None FINDINGS: The peak systolic velocity of the right common carotid artery is 64 cm/sec and internal carotid artery 135 cm/sec. The diastolic velocity in the internal carotid artery is 40 cm/sec. The ICA/CCA ratio is 2.1. Visually, a small to moderate amount of plaque is seen. These findings are consistent with less than 50% stenosis. The external carotid artery is patent. The right vertebral artery is patent with antegrade flow. The peak systolic velocity of the left common carotid artery is 73 cm/sec and internal carotid artery 134 cm/sec. The diastolic velocity in the internal carotid artery is 49 cm/sec. The ICA/CCA ratio is 1.8. Visually, a small to moderate amount of plaque is seen. These findings are consistent with less than 50% stenosis. The external carotid artery is patent. The left vertebral artery is patent with antegrade flow. IMPRESSION: No evidence of significant carotid stenosis. Bilateral patent vertebral arteries. If indicated, CTA or MRA could further evaluate. Reviewed, Interpreted and Dictated by Eduardo Maloney III, MD Transcribed by Anastasiia Garner Authenticated and [facility]
--- NOTE | 2024-06-12 15:45 | P.HP_ITS ---
History of Present Illness *Admission Date: 06/12/24 *Reason for visit:: Left-sided weakness *History of present illness: Really nice patient with past medical history of CKD, anemia, CAD, hypertension, hyperlipidemia, lupus. Patient presents to hospital with new left upper/lower extremity weakness. Daughter states that patient suffered from symptoms at home around 9 AM associated with shortness of breath and slurring words. Daughter states that symptoms improved at home within 20 minutes, but brought patient to the hospital for evaluation. Patient reportedly had NIH stroke scale 5 in emergency room, but declined TNK/tPA. Patient also declined transfer to [facility]. Family including daughter/sister state that patient suffered from similar symptoms 1 year ago secondary to low magnesium and UTI. Patient shows signs of UTI on urine analysis evaluation emergency room. Patient's magnesium 1.5 in emergency room. Given 2 g IV mag at time of admission by ER provider. Urine culture also obtained in emergency room. Slight left upper/lower extremity drifting noted during musculoskeletal exam by Dr. Gomez at bedside at time of admission. Denies fevers, chills, known sick contacts, recent travel. States she suffers from chronic shortness of breath. [facility] Disclaimer: The information contained in this section may have been updated after the patient was seen, as this information can be updated by other users. Medical History Abnormal EKG Abnormal cardiovascular stress test Atypical angina Anemia Coronary artery calcification seen on CT scan Dyspnea Chest pain Family History (Updated 06/12/24 @ 15:33 by Lorraine Costa RN) Other Breast cancer Diabetes Hypertension Lung cancer Skin cancer Uterine cancer Social History (Updated 06/12/24 @ 15:34 by Lorraine Costa RN) Smoking Status: Never smoker alcohol intake: never substance use type: denies use current occupational status: retired and other Travel in the last 8 weeks: None household members: none housing: house caffeine: Yes Meds Home Medications and Allergies Home Medications Medication Instructions Recorded Confirmed Type buspirone 10 mg tablet 10 mg PO BID 30 days 06/09/18 06/12/24 History mirtazapine 15 mg tablet 15 mg PO HS 06/10/21 06/12/24 History omeprazole 40 mg capsule,delayed 40 mg PO DAILY #30 caps 12/19/22 06/12/24 Rx release dicyclomine 10 mg capsule 10 mg PO TID 06/12/24 06/12/24 History doxepin 10 mg capsule 10 mg PO AM 06/12/24 06/12/24 History doxepin 10 mg capsule 20 mg PO HS 06/12/24 06/12/24 History hydroxychloroquine 300 mg tablet 300 mg PO BIDWMEAL 06/12/24 06/12/24 History levothyroxine 150 mcg tablet 150 mcg PO DAILYDM 06/12/24 06/12/24 History mycophenolate mofetil 500 mg tablet 500 mg PO BID 06/12/24 06/12/24 History sertraline 25 mg tablet 25 mg PO HS 06/12/24 06/12/24 History sodium bicarbonate 650 mg tablet 1,300 mg PO TID 06/12/24 06/12/24 History New Prescriptions to Start Prescriptions: Allergies Allergy/AdvReac Type Severity Reaction Status Date / Time ANDREWS Inhibitors Allergy Severe Swelling Verified 03/25/24 11:01 of Lip/Tongue/Throat latex Allergy Intermediate Hives Verified 03/25/24 11:01 morphine Allergy Intermediate Hives Verified 03/25/24 11:01 Exam Data for Last 24 hours Vital signs and Labs for Last 24 Hours: Temp Pulse Resp BP Pulse Ox O2 Del Method 98.0 F 68 20 166/74 H 97 Room Air 06/12/24 15:08 06/12/24 15:08 06/12/24 15:08 06/12/24 15:08 06/12/24 13:30 06/12/24 15:36 Laboratory Results - last 24 hr 06/12/24 11:09: WBC 4.7 L, RBC 2.68 L, Hgb 7.5 L, Hct 23.6 L, MCV 88.2, MCH 28.1, MCHC 31.8, RDW 15.4, Plt Count 245, MPV 7.9, Neut % (Auto) 77.7, Lymph % (Auto) 13.0, [place] % (Auto) 6.7, Eos % (Auto) 1.6, Baso % (Auto) 1.0, Neut # (Auto) 3.7, Lymph # (Auto) 0.6 L, [place] # (Auto) 0.3, Eos # (Auto) 0.1, Baso # (Auto) 0.1, PT 10.5, INR 0.93, APTT 23.4, Sodium 138, Potassium 4.2, Chloride 108 H, Carbon Dioxide 24, Anion Gap 10.2, BUN 45 H, Creatinine 2.70 H, Estimated Creat Clear 18, Estimated GFR 17 L*, Est GFR ( Amer) 21 L, Glucose 101 H, Lactate 0.9, Calcium 8.4, Magnesium 1.5 L, Total Bilirubin 0.2, AST 20, ALT 11 L , Alkaline Phosphatase 96, Troponin I < 0.01, Total Protein 6.1 L, Albumin 3.4 L , Globulin 2.7, Albumin/Globulin Ratio 1.3, Triglycerides 161 H, Cholesterol 189, LDL Cholesterol Direct 67.06 L, VLDL Cholesterol 32, HDL Cholesterol 43, Cholesterol/HDL Ratio 4.4 H, Plasma/Serum Alcohol < 10 06/12/24 12:53: Urine Color Yellow, Urine Appearance Cloudy, Urine pH 7.0, Ur Specific [place] 1.015, Urine Protein 2+, Urine Glucose (UA) Negative, Urine Ketones Negative, Urine Blood 1+, Urine Nitrate Negative, Urine Bilirubin Negative, Urine Urobilinogen 0.2, Ur Leukocyte Esterase 2+ A, Urine RBC 3-5, Urine WBC 20-50, Ur Squamous Epith Cells None, Urine Bacteria 3+ 06/12/24 12:55: Urine Opiates Screen Negative, Urine Methadone Screen Negative, Ur Barbituates Screen Negative, Ur Phencyclidine Scrn Negative, Ur Amphetamines Screen Negative, U Benzodiazepines Scrn Negative, Urine Cocaine Screen Negative, U Marijuana (THC) Screen Negative 06/12/24 13:55: Troponin I < 0.01 I & O for Last 24 hours: Intake & Output 06/09/24 06/10/24 06/11/24 06/12/24 23:59 23:59 23:59 23:59 Weight 56.869 kg Radiology Reports for the Last 24 Hours: Ordering Physician: Tone Styles DO Date of Service: 06/12/24 Procedure(s): CT angio neck Accession Number(s): [id number] cc: Tone Styles DO; Eduardo Maloney MD; Provider,Referral MD~ FINAL REPORT TECHNIQUE: Thin section axial CT with IV contrast supplemented with multiplanar reconstruction under CT angiogram protocol. This study was performed with techniques to keep radiation doses as low as reasonably achievable (ALARA). Individualized dose reduction techniques using automated exposure control or adjustment of mA and/or kV according to the patient''s size were employed. NASCET criteria was utilized during interpretation. CLINICAL HISTORY: possible stroke COMPARISON: None FINDINGS: Aortic arch: Arch shows no significant narrowing. Great vessel origins are widely patent. Right carotid: Calcified plaque at the carotid bifurcation with less than 50% stenosis. Left carotid: Calcified plaque at the carotid bifurcation with less than 50% stenosis. Vertebral: Vertebral arteries are codominant. No significant stenosis is present. IMPRESSION: No significant stenosis. *Routine HEENT Exam Head: Present normocephalic Eye: Present normal accommodation ENT: Present mucous membranes moist *Routine Neck Exam Neck: Present supple and full ROM *Routine Respiratory Exam Respiratory: Present diminished air movement *Routine Cardiovascular Exam Cardiovascular: Present RRR and Normal S1 *Routine Abdominal Exam Abdominal: Present soft and normoactive bowel sounds *Routine Rectal Exam Rectal:: deferred *Routine Genitalia Exam Genitalia:: deferred *Routine Extremities Exam Extremities: Present full ROM and normal capillary refill *Routine Skin Exam Skin: Present intact and warm *Routine Neurological Exam Neurological: Present alert and oriented X3 Assessment and Plan *Assessment and plan (1) Left-sided weakness: Status: Acute Category: Medical Code(s): R53.1 - Weakness (2) UTI (urinary tract infection): Status: Acute Category: Medical Code(s): N39.0 - Urinary tract infection, site not specified (3) Hypomagnesemia: Status: Acute Category: Medical Code(s): E83.42 - Hypomagnesemia (4) CKD (chronic kidney disease): Status: Acute Category: Medical Code(s): N18.9 - Chronic kidney disease, unspecified (5) Lupus: Status: Chronic Category: Medical Code(s): M32.9 - Systemic lupus erythematosus, unspecified Plan Left-sided weakness rule out CVA: ? CTA head/neck shows no clinically significant stenosis. Patient and patient's daughter states patient had similar symptoms when her magnesium was low and she had a UTI last year. Patient had NIH stroke scale 5 in emergency room, but declined tPA/TNK. Patient also declined transfer to . Will rule out stroke with MRI brain. Order echocardiogram. Place patient on telemetry to monitor for arrhythmias during hospitalization. UTI: -2 g IV Rocephin, urine culture done in emergency room. Patient already given IV Rocephin in emergency room, so unable to perform blood cultures at this time. Follow inflammatory markers including CRP, procalcitonin, and WBC during hospitalization. PPx: Lovenox subcutaneous CODE STATUS: full FEN: cardiac
--- NOTE | 2024-06-12 15:52 | MR_ITS ---
PROCEDURE INFORMATION: Exam: MR Head Without Contrast Exam date and time: 06/12/2024 4:55 PM Age: 74 years old Clinical indication: Stroke-like symptoms; Other: R/O CVA TECHNIQUE: Imaging protocol: Magnetic resonance imaging of the head without contrast. COMPARISON: 1. CT ANGIO HEAD 06/12/2024 11:18 AM 2. MR HEAD/BRAIN WO CON 06/10/2021 10:13 AM FINDINGS: Brain: No restricted diffusion within the brain to suggest an acute infarct. There are multiple foci/areas of FLAIR hyperintensity within the cerebral white matter. There is no mass effect or restricted diffusion associated with these foci. In a patient this age, this likely represents chronic small vessel ischemic disease. Small chronic lacunar infarcts are seen within the right thalamus and left thomas radiata. Tiny foci of T2 hyperintensity are seen within the bilateral basal ganglia and left thalamus, likely representing dilated perivascular spaces and/or chronic ischemic changes. Cerebral ventricles: There is mild prominence of ventricles and sulci, compatible with atrophy. Bones: A T1/T2 isointense lesion is identified anterolateral to the ewa and extending into Meckel's cave on the right side. This has progressed in size compared to the previous MRI, currently measuring 2.2 x 1.2 x 1.0 cm. Schwannoma and meningioma within the differential. Paranasal sinuses: A mucous retention cyst or polyp is visualized within the right maxillary sinus. Minimal mucosal thickening of the left maxillary sinus. Mastoid air cells: No mastoid effusion. Orbital cavities: Bilateral orbital lens implants. Vasculature: Superior to the ophthalmic segment of the right internal carotid artery, there is an ovoid T2 hypointense focus. Aneurysm is considered. This measures 5-6 mm in diameter. Soft tissues: No significant scalp swelling. IMPRESSION: 1. No acute infarct. 2. Superior to the ophthalmic segment of the right internal carotid artery, there is an ovoid T2 hypointense focus. Aneurysm is considered. This measures 5-6 mm in diameter. Correlation with MRA is recommended, as clinically indicated. 3. A lesion is identified anterolateral to the ewa and extending into Meckel's cave on the right side. Schwannoma and meningioma within the differential. Correlation with postcontrast MRI is recommended. 4. Moderate white matter disease, likely representing chronic small vessel ischemic disease. 5. Small chronic lacunar infarcts are seen within the right thalamus and left thomas radiata. 6. Mild atrophy. 7. Additional findings described above.
[2024-06-12] MEDS: 0.9 % SODIUM CHLORIDE 1000ML 1,000 ML 50 ML IV (16:06)
[2024-06-12 16:12] LABS: C-Reactive Protein 30.7 mg/L (0-4)
[2024-06-12 16:24] LABS: Procalcitonin 0.324 ng/mL (0.0-2.0)
--- NOTE | 2024-06-12 18:05 | PC.NURSE ---
Pt back in room from CT. She is sitting up in bed eating dinner. ABX infusing at this time. Call light within reach.
[2024-06-12] MEDS: ACETAMINOPHEN 500MG TAB 500 MG PO ×2 (18:54→23:49)
[2024-06-12 20:26] LABS: Troponin I < 0.01 ng/ml (0.00-0.034)
[2024-06-13] VITALS (8 sets, daily range): BP systolic 145–164; BP diastolic 71–85; PULSE 68–100; RESP 16–19; TEMP 36.8–37.2; O2SAT 94–97; BMI 26.5
--- NOTE | 2024-06-13 05:13 | PC.NURSE ---
Patient is currently sleeping and tolerating room air. She has called out once this shift complaining of a headache and was treated per JAN. Patient has no other complaints at this time, call light within reach.
[2024-06-13 08:02] LABS: Eosinophils # 0.1 K/mm3 (0.0-0.4); Hematocrit 24.7 % (37.0-47.0); Hemoglobin 7.8 g/dL (12.2-16.2); Lymphocytes # 0.4 K/mm3 (0.7-4.5); Lymphocytes % 11.1 % (10-50); Mean Corpuscular HGB Conc 31.6 g/dL (31.8-35.4); Mean Corpuscular Hemoglobin 27.9 pg (27.0-31.2); Mean Corpuscular Volume 88.4 fl (81-99); Monocytes # 0.2 K/mm3 (0.1-1.0); Monocytes % 6.4 % (1.7-9.3); Neutrophils % 78.5 % (37.0-80.0); Platelet Count 239 K/mm3 (142-424); Red Cell Distribution Width 15.5 % (11.5-17.5); White Blood Count 3.8 K/mm3 (4.8-10.8)
[2024-06-13] MEDS: ACETAMINOPHEN 500MG TAB 500 MG PO ×2 (08:33→15:23)
[2024-06-13] MEDS: DOCUSATE SODIUM 100 MG CAPSULE PO (08:33)
[2024-06-13] MEDS: ENOXAPARIN 30MG/0.3ML SYRINGE 30 MG SQ (08:34)
[2024-06-13 08:56] LABS: Anion Gap 12.9 mEq/L (5-15); Blood Urea Nitrogen 41 mg/dl (7-17); Calcium 8.7 mg/dl (8.4-10.2); Carbon Dioxide 22 mmol/L (22.0-30.0); Chloride 105 mmol/L (98-107); Creatinine Clearance Estimated 19 mL/min (50-200); Estimated Glomerular Filt Rate 19 ml/min (>60); GFR (African American) 23 ML/MIN (>60); Glucose 91 mg/dl (74-100); Magnesium 2.2 mg/dl (1.6-2.3); Potassium 3.9 mmoL/L (3.5-5.1); Sodium 136 mmol/L (136-145)
[2024-06-13 09:02] LABS: C-Reactive Protein 28.7 mg/L (0-4)
[2024-06-13 09:13] LABS: Procalcitonin 0.371 ng/mL (0.0-2.0)
[2024-06-13 09:36] LABS: Chol/HDL Ratio 4.4 (1-3.5); Cholesterol 197 mg/dl (140-200); HDL Cholesterol 45 mg/dl (40-60); Triglycerides 236 mg/dl (30-150); VLDL Cholesterol 47 mg/dL (0-40)
[2024-06-13 09:47] LABS: Direct LDL Cholesterol 68.07 mg/dL (100-129)
[2024-06-13] MEDS: MYCOPHENOLATE 500 MG 1 EACH PO ×2 (13:01→21:36)
[2024-06-13] MEDS: CEFTRIAXONE SODIUM 2 GM in 0.9 % SODIUM CHLORIDE 100 ML IV (14:51)
--- NOTE | 2024-06-13 17:49 | P.PN_ITS ---
Subjective *Date: 06/13/24 *Time: 18:55 Interval history: The patient is seen and examined at bedside today. I am accompanied by her nurse Lorraine. The patient is accompanied by her daughter Tiffanie. She lives with her other daughter Kellee. Nursing staff report that she remains afebrile with stable vital signs and saturating appropriately on 2 L of oxygen via nasal cannula. CBC identifies to BC 3.8 with hemoglobin 7.8 and platelet counts 239. Her electrolytes are normal and her creatinine is improved to 2.5. MRI identifies concerns with meningioma, right internal carotid artery aneurysm and previous lacunar infarcts. Exam Data for Last 24 hours Vital signs and Labs for Last 24 Hours: Temp Pulse Resp BP Pulse Ox O2 Del Method 98.4 F 70 19 158/82 H 96 Room Air 06/13/24 15:59 06/13/24 16:00 06/13/24 15:59 06/13/24 15:59 06/13/24 15:59 06/13/24 15:59 Laboratory Results - last 24 hr 06/12/24 12:53: Urine Color Yellow, Urine Appearance Cloudy, Urine pH 7.0, Ur Specific [place] 1.015, Urine Protein 2+, Urine Glucose (UA) Negative, Urine Ketones Negative, Urine Blood 1+, Urine Nitrate Negative, Urine Bilirubin Negative, Urine Urobilinogen 0.2, Ur Leukocyte Esterase 2+ A, Urine RBC 3-5, Urine WBC 20-50, Ur Squamous Epith Cells None, Urine Bacteria 3+ 06/12/24 19:15: Troponin I < 0.01 06/13/24 07:38: WBC 3.8 L, RBC 2.80 L, Hgb 7.8 L, Hct 24.7 L, MCV 88.4, MCH 27.9, MCHC 31.6 L, RDW 15.5, Plt Count 239, MPV 8.0, Neut % (Auto) 78.5, Lymph % (Auto) 11.1, [place] % (Auto) 6.4, Eos % (Auto) 3.0, Baso % (Auto) 1.0, Neut # (Auto) 3.0, Lymph # (Auto) 0.4 L, [place] # (Auto) 0.2, Eos # (Auto) 0.1, Baso # (Auto) 0.0, Sodium 136, Potassium 3.9, Chloride 105, Carbon Dioxide 22, Anion Gap 12.9, BUN 41 H, Creatinine 2.50 H, Estimated Creat Clear 19, Estimated GFR 19 L*, Est GFR ( Amer) 23 L, Glucose 91, Calcium 8.7, Magnesium 2.2 D, C-Reactive Protein 28.7 H, Triglycerides 236 H, Cholesterol 197, LDL Cholesterol Direct 68.07 L, VLDL Cholesterol 47 H, HDL Cholesterol 45, Cholesterol/HDL Ratio 4.4 H, Procalcitonin 0.371 I & O for Last 24 hours: Intake & Output 06/10/24 06/11/24 06/12/24 06/13/24 23:59 23:59 23:59 23:59 Intake Total 180 / 280 1700 / 1700 Output Total 1100 / 1100 Balance 180 / -220 600 / 600 Weight 56.869 kg 61.235 kg Microbiology Reports for the Last 24 Hours: Microbiology 06/12/24 12:53 Urine,Catheterized Urine Culture - Preliminary Gram Negative Rods Constitutional Constitutional: no acute distress, chronically ill appearing and cooperative *Routine HEENT Exam Head: Present normocephalic Eye: Present EOMI and PERRL ENT: Present mucous membranes moist *Routine Neck Exam Neck: Present supple; Absent lymphadenopathy *Routine Respiratory Exam Respiratory: Present rhonchi, normal respiratory effort and symmetric chest movement *Routine Cardiovascular Exam Cardiovascular: Present RRR *Routine Abdominal Exam Abdominal: Present soft; Absent tenderness *Routine Extremities Exam Extremities: Present full ROM; Absent edema *Routine Skin Exam Skin: Present warm; Absent rash *Routine Neurological Exam Neurological: Present alert, oriented X3 and moving all extremities Routine Psychiatric Exam Psychiatric: Present cooperative Assessment and Plan *Assessment and plan (1) Left-sided weakness: Status: Acute Category: Medical Code(s): R53.1 - Weakness (2) UTI (urinary tract infection): Status: Acute Category: Medical Code(s): N39.0 - Urinary tract infection, site not specified (3) Hypomagnesemia: Status: Acute Category: Medical Code(s): E83.42 - Hypomagnesemia (4) CKD (chronic kidney disease): Status: Acute Category: Medical Code(s): N18.9 - Chronic kidney disease, unspecified (5) Lupus: Status: Chronic Category: Medical Code(s): M32.9 - Systemic lupus erythematosus, unspecified Plan Left-sided weakness rule out CVA: ? CTA head/neck shows no clinically significant stenosis. Patient and patient's daughter states patient had similar symptoms when her magnesium was low and she had a UTI last year. Patient had NIH stroke scale 5 in emergency room, but d eclined tPA/TNK. Patient also declined transfer to . Will rule out stroke with MRI brain. Order echocardiogram. Place patient on telemetry to monitor for arrhythmias during hospitalization. UTI: -2 g IV Rocephin, urine culture done in emergency room. Patient already given IV Rocephin in emergency room, so unable to perform blood cultures at this time. Follow inflammatory markers including CRP, procalcitonin, and WBC during hospitalization. PPx: Lovenox subcutaneous CODE STATUS: DNR/DNI POA: Kellee-daughter
--- NOTE | 2024-06-13 18:19 | PC.NURSE ---
pt is currently lying in bed resting. no c/o pain, tolerating room air. call light within reach. no further requests at this time.
[2024-06-13] MEDS: BUSPIRONE 10 MG 1 EACH PO (21:34)
[2024-06-13] MEDS: SODIUM BICARBONATE 650 MG 2 EACH PO (21:35)
[2024-06-13] MEDS: OMEPRAZOLE 40 MG 1 EACH PO (21:35)
[2024-06-13] MEDS: DICYCLOMINE 10 MG 1 EACH PO (21:35)
[2024-06-13] MEDS: SERTRALINE 25 MG 1 EACH PO (21:36)
[2024-06-13] MEDS: MIRTAZAPINE 15 MG 1 EACH PO (21:36)
[2024-06-14] VITALS: BP 164/81; PULSE 80; PULSE 90; RESP 16; TEMP 37.4; O2SAT 92
[2024-06-14 04:00] VITALS: BP 143/78; PULSE 80; PULSE 88; RESP 16; TEMP 37.3; O2SAT 92; BMI 25.3
[2024-06-14] MEDS: LEVOTHYROXINE 150 MCG 1 EACH PO (06:43)
[2024-06-14] MEDS: ACETAMINOPHEN 500MG TAB 500 MG PO (07:34)
[2024-06-14] MEDS: HYDROXYCHLOROQUINE 1 EACH PO (07:42)
[2024-06-14 07:47] LABS: Anion Gap 11.3 mEq/L (5-15); Blood Urea Nitrogen 44 mg/dl (7-17); Carbon Dioxide 23 mmol/L (22.0-30.0); Chloride 108 mmol/L (98-107); Creatinine Clearance Estimated 16 mL/min (50-200); Estimated Glomerular Filt Rate 16 ml/min (>60); GFR (African American) 20 ML/MIN (>60); Glucose 92 mg/dl (74-100); Magnesium 2.3 mg/dl (1.6-2.3); Potassium 4.3 mmoL/L (3.5-5.1); Sodium 138 mmol/L (136-145)
[2024-06-14 07:50] VITALS: O2SAT 92
[2024-06-14 07:58] VITALS: BP 164/72; PULSE 92; RESP 17; TEMP 36.9; O2SAT 96
[2024-06-14 08:00] VITALS: PULSE 90
[2024-06-14 08:04] LABS: Basophils % 0.8 % (0.1-2.0); Eosinophils # 0.2 K/mm3 (0.0-0.4); Eosinophils % 3.9 % (0.1-12.0); Hematocrit 25.3 % (37.0-47.0); Lymphocytes # 0.6 K/mm3 (0.7-4.5); Lymphocytes % 13.4 % (10-50); Mean Corpuscular HGB Conc 31.8 g/dL (31.8-35.4); Mean Corpuscular Volume 88.1 fl (81-99); Mean Platelet Volume 7.7 fl (7.4-10.4); Monocytes # 0.3 K/mm3 (0.1-1.0); Monocytes % 5.6 % (1.7-9.3); Neutrophils # 3.4 K/mm3 (1.8-7.8); Neutrophils % 76.2 % (37.0-80.0); Platelet Count 261 K/mm3 (142-424); Procalcitonin 0.409 ng/mL (0.0-2.0); Red Blood Count 2.86 M/mm3 (4.20-5.40); Red Cell Distribution Width 15.7 % (11.5-17.5); White Blood Count 4.4 K/mm3 (4.8-10.8)
[2024-06-14] MEDS: BUSPIRONE 10 MG 1 EACH PO (08:43)
[2024-06-14] MEDS: SODIUM BICARBONATE 650 MG 2 EACH PO (08:44)
[2024-06-14] MEDS: DICYCLOMINE 10 MG 1 EACH PO (08:44)
[2024-06-14] MEDS: MYCOPHENOLATE 500 MG 1 EACH PO (08:45)
[2024-06-14] MEDS: DOXEPIN 10 MG 2 EACH PO (08:46)
[2024-06-14] MEDS: ENOXAPARIN 30MG/0.3ML SYRINGE 30 MG SQ (08:48)
[2024-06-14] MEDS: DOCUSATE SODIUM 100 MG CAPSULE PO (08:48)
--- NOTE | 2024-06-14 10:15 | P.DS_ITS ---
General Admission date:: 06/12/24 Discharge date: 06/14/24 HPI HPI HPI: Really nice patient with past medical history of CKD, anemia, CAD, hypertension, hyperlipidemia, lupus. Patient presents to hospital with new left upper/lower extremity weakness. Daughter states that patient suffered from symptoms at home around 9 AM associated with shortness of breath and slurring words. Daughter states that symptoms improved at home within 20 minutes, but brought patient to the hospital for evaluation. Patient reportedly had NIH stroke scale 5 in emergency room, but declined TNK/tPA. Patient also declined transfer to [facility]. Family including daughter/sister state that patient suffered from similar symptoms 1 year ago secondary to low magnesium and UTI. Patient shows signs of UTI on urine analysis evaluation emergency room. Patient's magnesium 1.5 in emergency room. Given 2 g IV mag at time of admission by ER provider. Urine culture also obtained in emergency room. Slight left upper/lower extremity drifting noted during musculoskeletal exam by Dr. Gomez at bedside at time of admission. Denies fevers, chills, known sick contacts, recent travel. States she suffers from chronic shortness of breath. Hospital Course Hospital Course Hospital Course: The patient was admitted to the telemetry unit with IV antibiotic therapy. Her urine culture grew out E. coli greater than 100,000 colony that was pansensitive. With concerns of acute on chronic left upper extremity weakness neuroimaging was performed and discussed with patient and family. CT of the brain identified chronic changes with no acute disease. CTA of the head and neck identified no stenotic lesions. Carotid Dopplers identified less than 50% stenosis. Echo identified an EF of 50% with LVH, MR, TR and RSVP of 30 mmHg. 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 Her MRI also identified old lacunar infarct with no acute stroke. She was maintained on her immunosuppressant throughout her hospital stay for her chronic kidney disease stage IV and lupus. She identified improvement and requested to be discharged home. I was able to communicate with her daughter Kellee CHAPMAN) via phone with her discharge nurse Eric assisting. We discussed her presenting symptomatology, neuroimaging and recommendations for follow-up with outpatient neurosurgeon. We have recommended a 1 week follow-up with her PCP to discuss her hospital experience and assist with referrals. She will be discharged on Levaquin, dosed for renal function and identified urine culture sensitivities. I spent 35 minutes in [id number] time with the patient daughter Kellee by phone and nursing staff (Eric PINEDO) concerning the discharge process. We discussed the admitting diagnoses and hospital course. We discussed identified improvement and the patient's desire to be discharged. We reviewed inpatient studies and imaging. The patient voiced understanding on the importance of follow-up with her primary care provider, mineral engineer and neurosurgery. The patient plans to be compliant with the medication regimen prescribed and follow-up appointments. She understands that she can return to the emergency department with any sudden changes or concerns. Exam Data for Last 24 hours Vital signs and Labs for Last 24 Hours: Temp Pulse Resp BP Pulse Ox O2 Del Method 98.4 F 90 17 164/72 H 96 Room Air 06/14/24 07:58 06/14/24 08:00 06/14/24 07:58 06/14/24 07:58 06/14/24 07:58 06/14/24 08:28 Laboratory Results - last 24 hr 06/14/24 07:00: WBC 4.4 L, RBC 2.86 L, Hgb 8.0 L, Hct 25.3 L, MCV 88.1, MCH 28.0, MCHC 31.8, RDW 15.7, Plt Count 261, MPV 7.7, Neut % (Auto) 76.2, Lymph % (Auto) 13.4, [place] % (Auto) 5.6, Eos % (Auto) 3.9, Baso % (Auto) 0.8, Neut # (Auto) 3.4, Lymph # (Auto) 0.6 L, [place] # (Auto) 0.3, Eos # (Auto) 0.2, Baso # (Auto) 0.0, Sodium 138, Potassium 4.3, Chloride 108 H, Carbon Dioxide 23, Anion Gap 11.3, BUN 44 H, Creatinine 2.80 H, Estimated Creat Clear 16, Estimated GFR 16 L*, Est GFR ( Amer) 20 L, Glucose 92, Calcium 9.0, Magnesium 2.3, C- Reactive Protein 28.0 H, Procalcitonin 0.409 I & O for Last 24 hours: Intake & Output 06/11/24 06/12/24 06/13/24 06/14/24 23:59 23:59 23:59 23:59 Intake Total 180 / 280 2210 / 2450 480 / 480 Output Total 1850 / 1850 450 / 450 Balance 180 / -220 360 / 600 30 / 30 Weight 56.869 kg 61.235 kg 58.513 kg Microbiology Reports for the Last 24 Hours: Microbiology 06/12/24 12:53 Urine,Catheterized Urine Culture - Final Escherichia coli Constitutional Constitutional: no acute distress, chronically ill appearing and cooperative *Routine HEENT Exam Head: Present normocephalic Eye: Present EOMI and PERRL ENT: Present mucous membranes moist *Routine Neck Exam Neck: Present supple; Absent lymphadenopathy *Routine Respiratory Exam Respiratory: Present rhonchi, normal respiratory effort and symmetric chest movement *Routine Cardiovascular Exam Cardiovascular: Present RRR *Routine Abdominal Exam Abdominal: Present soft; Absent tenderness *Routine Extremities Exam Extremities: Present full ROM; Absent edema Comments: Left side weakness *Routine Skin Exam Skin: Present warm; Absent rash *Routine Neurological Exam Neurological: Present alert, oriented X3, motor deficit, moving all extremities, vision grossly intact and normal speech Comments: Left-sided weakness with LUE 4/5 and LLE 3/5 Routine Psychiatric Exam Psychiatric: Present normal affect, normal thought process, cooperative, good insight and good judgment Results Data Completed and Pending Labs on day of discharge: Labs from last 24 hours 06/14/24 07:00 WBC 4.4 L RBC 2.86 L Hgb 8.0 L Hct 25.3 L MCV 88.1 MCH 28.0 MCHC 31.8 RDW 15.7 Plt Count 261 MPV 7.7 Neut % (Auto) 76.2 Lymph % (Auto) 13.4 [place] % (Auto) 5.6 Eos % (Auto) 3.9 Baso % (Auto) 0.8 Neut # (Auto) 3.4 Lymph # (Auto) 0.6 L [place] # (Auto) 0.3 Eos # (Auto) 0.2 Baso # (Auto) 0.0 Sodium 138 Potassium 4.3 Chloride 108 H Carbon Dioxide 23 Anion Gap 11.3 BUN 44 H Creatinine 2.80 H Estimated Creat Clear 16 Estimated GFR 16 L* Est GFR ( Amer) 20 L Glucose 92 Calcium 9.0 Magnesium 2.3 C-Reactive Protein 28.0 H Procalcitonin 0.409 DS: Diagnosis Discharge Diagnosis (1) Left-sided weakness: Status: Acute Code(s): R53.1 - Weakness (2) UTI (urinary tract infection): Status: Acute Code(s): N39.0 - Urinary tract infection, site not specified (3) Hypomagnesemia: Status: Acute Code(s): E83.42 - Hypomagnesemia (4) CKD (chronic kidney disease): Status: Acute Code(s): N18.9 - Chronic kidney disease, unspecified (5) Lupus: Status: Chronic Code(s): M32.9 - Systemic lupus erythematosus, unspecified Meds Home Medications and Allergies Home Medications Medication Instructions Recorded Confirmed Type buspirone 10 mg tablet 10 mg PO BID 30 days 06/09/18 06/12/24 History mirtazapine 15 mg tablet 15 mg PO HS 06/10/21 06/12/24 History omeprazole 40 mg capsule,delayed 40 mg PO DAILY #30 caps 12/19/22 06/12/24 Rx release dicyclomine 10 mg capsule 10 mg PO BID 06/12/24 06/13/24 History doxepin 10 mg capsule 20 mg PO HSP PRN Sleep 06/12/24 06/13/24 History hydroxychloroquine 300 mg tablet 300 mg PO BIDWMEAL 06/12/24 06/12/24 History levothyroxine 150 mcg tablet 150 mcg PO DAILYDM 06/12/24 06/12/24 History mycophenolate mofetil 500 mg tablet 500 mg PO BID 06/12/24 06/12/24 History sertraline 25 mg tablet 25 mg PO HS 06/12/24 06/12/24 History sodium bicarbonate 650 mg tablet 1,300 mg PO TID 06/12/24 06/12/24 History levofloxacin 250 mg tablet 250 mg PO Q48H #3 tabs 06/14/24 Rx New Prescriptions to Start Prescriptions: levofloxacin Corbin Gleason Allergies Allergy/AdvReac Type Severity Reaction Status Date / Time ANDREWS Inhibitors Allergy Severe Swelling Verified 03/25/24 11:01 of Lip/Tongue/Throat latex Allergy Intermediate Hives Verified 03/25/24 11:01 morphine Allergy Intermediate Hives Verified 03/25/24 11:01 Discharge Plan Disposition Patient Disposition: Home, Self-Care Condition: Serious Follow up Plan Follow up with: Winston Webster MD [Staff Physician] - 1 week Prescriptions/Medication Reconciliation: New levofloxacin 250 mg tablet 250 mg PO Q48H Qty: 3 0RF Continued buspirone 10 mg tablet 10 mg PO BID 30 Days omeprazole 40 mg capsule,delayed release(DR/EC) 40 mg PO DAILY Qty: 30 2RF mycophenolate mofetil 500 mg tablet 500 mg PO BID levothyroxine 150 mcg tablet 150 mcg PO DAILYDM sertraline 25 mg tablet 25 mg PO HS hydroxychloroquine 300 mg tablet 300 mg PO BIDWMEAL doxepin 10 mg capsule 20 mg PO HSP PRN (Reason: Sleep) sodium bicarbonate 650 mg tablet 1,300 mg PO TID dicyclomine 10 mg capsule 10 mg PO BID mirtazapine 15 MG tablet 15 mg PO HS Problem Reconciliation Problems Reviewed?: Yes Patient Discharge Instructions ACTIVITY: Continue current activity and Ambulate as tolerated DIET: cardiac and renal Patient Instructions: Acute Kidney Injury, DI for Urinary Tract Infection (UTI) Providers Primary Care Provider: Provider,Referral Admit Provider: Abdirizak Gomez Attending Provider: Abdirizak Gomez
--- NOTE | 2024-06-15 13:35 | CARE MANAGER ---
Spoke with patient related to hospital discharge. Patient reports that she does have her new antibiotic. She was a little sick to her stomach this morning, but she is better now. We discussed her needing to follow up with PCP within a week and she states her daughter will make her follow up appointment because she is the one that takes her. She denies questions or concerns at this time. SHAHIDA Valle
== END 2024-06-14 11:55 | disposition home or self-care (01) ==
LOC: ER 14:00 → 2ND 14:06
PROVIDERS: Admitting Provider Internal Medicine; Emergency Provider Emergency Medicine; Visit Provider Internal Medicine
DX: R53.1 Weakness (principal); N39.0 Urinary tract infection, site not specified; E83.42 Hypomagnesemia; N18.9 Chronic kidney disease, unspecified; M32.9 Systemic lupus erythematosus, unspecified; Z79.899 Other long term (current) drug therapy; R29.705 NIHSS score 5; I72.0 Aneurysm of carotid artery
CPT/HCPCS: 36415; 70450; 70496; 70498; 70551; 80048; 80053; 80061; 80307; 80320; 81001; 83605; 83735; 84145; 84484; 85025; 85610; 85730; 86140; 87086; 87088; 87186; 93005; 93306; 93880; 99291; G0378; G0480; J0696; J1650; J3101; J3475; Q9967

== ENCOUNTER 2025-01-08 08:55 | Outpatient (CLI) | payer MEDICARE, SELFPAY ==
[2025-01-08 09:09] LABS: Microscopic, Urine URINE MICROSCOPIC (MICROSCOPIC)
[2025-01-08 09:27] LABS: Hematocrit 29.3 % (37.0-47.0); Hemoglobin 9.2 g/dL (12.2-16.2); Mean Corpuscular HGB Conc 31.4 g/dL (31.8-35.4); Mean Corpuscular Hemoglobin 27.9 pg (27.0-31.2); Mean Corpuscular Volume 88.8 fl (81-99); Platelet Count 241 K/mm3 (142-424); Red Cell Distribution Width 14.6 % (11.5-17.5); White Blood Count 8.7 K/mm3 (4.8-10.8)
[2025-01-08 09:28] LABS: Appearance,Urine CLOUDY (Clear); Bilirubin,Urine Negative (Negative); Blood, Urine 2+ (Negative); Color,Urine YELLOW (Yellow); Glucose,Urine (UA) Negative (Negative); Ketones,Urine Negative (Negative); Leukocyte Esterase,Urine 3+ (Negative); Nitrate,Urine POSITIVE (Negative); Protein,Urine 2+ (Negative); Specific Gravity, Urine 1.025 (1.005-1.030); Urobilinogen,Urine 0.2 EU/dl (0.2)
[2025-01-08 09:42] LABS: Creatinine,Urine Random 61 mg/dL (Not Estab.)
[2025-01-08 09:43] LABS: Bacteria,Urine 2+ /lpf; RBC,Urine Occasional #/hpf (0-3); Squamous Epithelial Cell,Urine Occasional #/hpf (0-5); WBC,Urine TNTC #/hpf (0-3)
[2025-01-08 09:47] LABS: Chloride 104 mmol/L (98-107); Sodium 141 mmol/L (136-145)
[2025-01-08 09:48] LABS: Albumin Level 4.2 g/dl (3.5-5.0); Potassium 4.4 mmoL/L (3.5-5.1)
[2025-01-08 09:51] LABS: Anion Gap 13.4 mEq/L (5-15); Blood Urea Nitrogen 37 mg/dl (7-17); Calcium 8.8 mg/dl (8.4-10.2); Carbon Dioxide 28 mmol/L (22.0-30.0); Estimated Glomerular Filt Rate 16 ml/min (>60); GFR (African American) 20 ML/MIN (>60); Glucose 94 mg/dl (74-100); Phosphorous 4.5 mg/dl (2.5-4.5)
[2025-01-08 10:08] LABS: Microalbumin/Creatinine Ratio 1251.8
== END 2025-01-08 23:59 | disposition home or self-care (01) ==
LOC: LAB 09:03
PROVIDERS: PCP Nurse Practitioner Family; Visit Provider Internal Medicine Nephrology
DX: N18.4 Chronic kidney disease, stage 4 (severe) (principal); N39.0 Urinary tract infection, site not specified; E03.9 Hypothyroidism, unspecified; I10 Essential (primary) hypertension; E78.2 Mixed hyperlipidemia; I25.10 Atherosclerotic heart disease of native coronary artery without angina pectoris
CPT/HCPCS: 36415; 80069; 81001; 82043; 82570; 84156; 85027; 87086; 87088; 87186

== ENCOUNTER 2025-03-05 11:12 | Emergency (ER) | payer MEDICARE, SELFPAY ==
[2025-03-05] VITALS (11 sets, daily range): BP systolic 134–165; BP diastolic 65–80; PULSE 63–96; RESP 17–18; TEMP 36.6–36.7; O2SAT 93–100; BMI 24.0
[2025-03-05 11:36] LABS: Albumin Level 3.6 g/dl (3.5-5.0); Chloride 113 mmol/L (98-107); Potassium 4.9 mmoL/L (3.5-5.1); Sodium 141 mmol/L (136-145)
[2025-03-05 11:38] LABS: Blood Urea Nitrogen 45 mg/dl (7-17); Creatinine Clearance Estimated 14 mL/min (50-200); Estimated Glomerular Filt Rate 15 ml/min (>60); GFR (African American) 18 ML/MIN (>60)
[2025-03-05 11:39] LABS: Alanine Aminotransferase 12 U/L (12-78); Albumin/Globulin Ratio 1.4 (1.1-1.8); Alkaline Phosphatase 76 U/L (38-126); Anion Gap 13.9 mEq/L (5-15); Aspartate Amino Transferase 22 U/L (14-36); Bilirubin,Total 0.3 mg/dl (0.2-1.3); Calcium 8.6 mg/dl (8.4-10.2); Carbon Dioxide 19 mmol/L (22.0-30.0); Globulin 2.6 g/dL (1.3-3.2); Glucose 125 mg/dl (74-100); Lipase 156 U/L (23-300); Total Protein,Serum 6.2 g/dl (6.3-8.2)
[2025-03-05 11:41] LABS: Basophils % 0.7 % (0.1-2.0); Hematocrit 26.6 % (37.0-47.0); Hemoglobin 7.9 g/dL (12.2-16.2); Lymphocytes # 0.8 K/mm3 (0.7-4.5); Lymphocytes % 19.9 % (10-50); Mean Corpuscular HGB Conc 29.7 g/dL (31.8-35.4); Mean Corpuscular Hemoglobin 26.9 pg (27.0-31.2); Mean Corpuscular Volume 90.5 fl (81-99); Mean Platelet Volume 9.9 fl (7.4-10.4); Monocytes # 0.4 K/mm3 (0.1-1.0); Neutrophils # 2.9 K/mm3 (1.8-7.8); Neutrophils % 69.9 % (37.0-80.0); Platelet Count 199 K/mm3 (142-424); Red Blood Count 2.94 M/mm3 (4.20-5.40); Red Cell Distribution Width 13.8 % (11.5-17.5); White Blood Count 4.1 K/mm3 (4.8-10.8)
--- NOTE | 2025-03-05 12:36 | ECG_ITS ---
APPROVED REPORT Exam: Resting ECG HR:62 bpm ECG Measurements Heart Rate 62 AXES UT 166 P 52 QRSd 94 QRS -9 QT 431 T 19 QTc 436 Conclusion SINUS RHYTHM NORMAL ECG Electronically signed by : SHARRI JENSEN, 03/06/2025 03:32:07
[2025-03-05 12:51] LABS: HIV Combo NEGATIVE (Negative)
--- NOTE | 2025-03-05 12:58 | HMH.EDGENADL ---
Discharge Plan Disposition Patient Disposition: Home, Self-Care Condition: Good Prescriptions Prescriptions: New levofloxacin 750 mg tablet 750 mg PO DAILY 5 Days Qty: 5 0RF No Action buspirone 10 mg tablet 10 mg PO BID 30 Days nifedipine 30 mg tablet extended release 24hr PO sumatriptan succinate [Imitrex] 100 mg tablet 100 mg PO Q2H PRN Rx Instructions: do not exceed 2 doses per 24 hrs alprazolam 0.25 mg tablet 0.25 mg PO DAILY acetaminophen 325 mg capsule 325 mg PO QID PRN cholecalciferol (vitamin D3) 50 mcg (2,000 unit) capsule 50 mcg PO DAILY Nurtec ODT 75 mg tablet,disintegrating 75 mg PO ONCE PRN omeprazole 40 mg capsule,delayed release(DR/EC) 40 mg PO DAILY Qty: 30 2RF mycophenolate mofetil 500 mg tablet 500 mg PO BID levothyroxine 150 mcg tablet 150 mcg PO DAILYDM sertraline 25 mg tablet 25 mg PO HS hydroxychloroquine 300 mg tablet 300 mg PO BIDWMEAL doxepin 10 mg capsule 20 mg PO HSP PRN (Reason: Sleep) sodium bicarbonate 650 mg tablet 1,300 mg PO TID dicyclomine 10 mg capsule 10 mg PO BID mirtazapine 15 MG tablet 15 mg PO HS Referrals Follow up/Referrals: Liliana Avalos APRN [Primary Care Provider] - See instructions Activity Restrictions/Add. Instructions Additional Instructions/Restrictions: You were evaluated in the emergency department today. Your urine is concerning for infection. We did send a culture just to be on the safe side. For this, we are prescribing you an antibiotic. Your labs are otherwise reassuring. Please make sure you stay hydrated. Follow-up very closely with your primary care provider over the next 48 hours for reassessment. Return to the emergency department for new or worsening symptoms. Clinical Impressions Clinical Impression: UTI (urinary tract infection), Syncope, vasovagal, Diarrhea Instructions Patient Instructions: DI for Syncope in Adults (Fainting), DI for Urinary Tract Infection (UTI), DI for Diarrhea and Traveler's Diarrhea -- Adult, DI for Nausea -- Adult Print Language Print Language: Brazilian Discharge ED Provider: Jody Harp General Adult HPI General Chief complaint: Nausea/Vomiting/Diarrhea Stated complaint: DIARRHEA Time Seen by Provider: 03/05/25 11:50 Mode of Arrival: EMS Source of Information: Patient Description of Symptoms (Recalled from ER Triage Doc. by RN): pt to the ED via EMS with complaints of diarrhea x 2 days. pt reports she has IBS and was at home with her home health nurse who was attempting to give her a shower but the patient kept having bowel movement. pt denies any pain and this time and stated she didnt want to come to the hospital but her nurse suggested she should. History of Present Illness HPI narrative: This patient is a 75-year-old female with a history of brain lesion who follows with neurology and is awaiting referral to neurosurgery at , IBS, hypothyroidism, hypertension, recurrent episodes of vasovagal syncope presenting to the emergency department for evaluation with concern for syncopal episode. According to the patient, she was doing okay this morning, went and took a shower, at which point she felt she needed to have a bowel movement. She starts that she had a diarrheal episode, and then passed out. According to the patient's daughter, the patient was with a new caregiver. The patient has history of vasovagal episodes in the past, and the daughter believes this is what happened, however the new caregiver was not used to it. Daughter states that the patient has only had diarrhea today. No blood in stools or melena. Patient notes that she has a mild sore throat and had this episode of diarrhea, she also has had some dry heaves but denies any fevers, cough, chest pain, shortness of breath, abdominal pain, or urinary symptoms. Patient has no other concerns or complaints at this time stating that she feels fine Related Data Home Medications ?Medication ?Instructions ?Recorded ?Confirmed buspirone 10 mg tablet 10 mg PO BID 30 days 06/09/18 02/24/25 mirtazapine 15 mg tablet 15 mg PO HS 06/10/21 02/24/25 dicyclomine 10 mg capsule 10 mg PO BID 06/12/24 02/24/25 doxepin 10 mg capsule 20 mg PO HSP PRN Sleep 06/12/24 02/24/25 hydroxychloroquine 300 mg tablet 300 mg PO BIDWMEAL 06/12/24 02/24/25 levothyroxine 150 mcg tablet 150 mcg PO DAILYDM 06/12/24 02/24/25 mycophenolate mofetil 500 mg tablet 500 mg PO BID 06/12/24 02/24/25 sertraline 25 mg tablet 25 mg PO HS 06/12/24 02/24/25 sodium bicarbonate 650 mg tablet 1,300 mg PO TID 06/12/24 02/24/25 acetaminophen 325 mg capsule 325 mg PO QID PRN 02/24/25 02/24/25 alprazolam 0.25 mg tablet 0.25 mg PO DAILY 02/24/25 02/24/25 cholecalciferol (vitamin D3) 50 50 mcg PO DAILY 02/24/25 02/24/25 mcg (2,000 unit) capsule nifedipine 30 mg tablet,extended mg PO 02/24/25 02/24/25 release 24 hr rimegepant 75 mg disintegrating 75 mg PO ONCE PRN 02/24/25 02/24/25 tablet (Nurtec ODT) sumatriptan succinate 100 mg 100 mg PO Q2H PRN 02/24/25 02/24/25 tablet (Imitrex) Previous Rx's ?Medication ?Instructions ?Recorded omeprazole 40 mg capsule,delayed 40 mg PO DAILY #30 caps 12/19/22 release levofloxacin 750 mg tablet 750 mg PO DAILY 5 days #5 tabs 03/05/25 Allergies Allergy/AdvReac Type Severity Reaction Status Date / Time ANDREWS Inhibitors Allergy Severe Swelling Verified 02/24/25 10:25 of Lip/Tongue/Throat latex Allergy Intermediate Hives Verified 02/24/25 10:25 morphine Allergy Intermediate Hives Verified 02/24/25 10:25 PFSH PFSH Disclaimer: The information contained in this section may have been updated after the patient was seen, as this information can be updated by other users. Medical History Cataract Kidney disease Migraine GERD (gastroesophageal reflux disease) Depression Abnormal EKG Abnormal cardiovascular stress test Atypical angina Anemia Coronary artery calcification seen on CT scan Dyspnea Chest pain Family History Other Breast cancer Diabetes Hypertension Lung cancer Skin cancer Uterine cancer Social History Smoking Status: Never smoker alcohol intake: never substance use type: denies use current occupational status: retired and other Travel in the last 8 weeks: None household members: none housing: house caffeine: Yes Have you lived/traveled outside US in past 30 days?: No Contact w/someone who lives/traveled outside US past 30 days?: No Exposure to someone with infectious disease in past 14 days?: No Do you have a fever (greater than 100.4 F or 38 C)?: No Have you tested positive for COVID-19: No Exposed to someone with COVID-19 in past 14 days?: No Do you have a sore throat?: No Do you have a cough?: No Do you have any weakness?: No Do you have any diarrhea?: Yes Are you experiencing any unusual bleeding?: No Do you have any muscle aches/pain?: No Do you have any abdominal pain?: No Are you experiencing loss of taste or smell?: No Other Medical History Have you received the Flu Vaccine for this season: No Have you received the Pneumonia Vaccine: Yes ROS Obtained: Yes All systems reviewed & no additional complaints except as documented Physical Exam General General appearance: alert and in no apparent distress Head Head exam: atraumatic and normocephalic Eye Eye exam: Present normal appearance, PERRL and EOMI ENT ENT exam: Present normal exam, normal oropharynx, mucous membranes moist and normal external ear exam Neck Neck exam: Present normal inspection, full ROM and trachea midline; Absent tenderness Chest Chest inspection: Present normal inspection and symmetric chest wall rise; Absent tenderness Respiratory Respiratory exam: Present normal lung sounds bilaterally; Absent respiratory distress, wheezes, stridor or accessory muscle use Cardiovascular Cardiovascular exam: Present regular rate and normal rhythm Abdominal Exam Abdominal exam: Present soft; Absent distention, tenderness or guarding Extremities Exam Extremities exam: Present normal inspection, full ROM and normal capillary refill; Absent tenderness or edema Back Exam Back exam: Present normal inspection and full ROM; Absent tenderness Neurological Exam Neurological exam: Present alert, oriented X3, CN II-XII intact and other (At her neurologic baseline without focal deficit); Absent motor sensory deficit Psychiatric Psychiatric exam: Present normal affect and normal mood Skin Skin exam: Present warm and dry Medical Decision Making Medical Records Medical records reviewed: Yes I reviewed the patient's medical records. Screening: Per USPSTF and CDC recommendations, given the prevalence of disease in our region, it is our hospital?s policy to screen for HIV and viral Hepatitis for all patients aged 18 and over and those with ongoing risk factors. Edmund Inquiry Pt receiving controlled substance: No Vital Signs: 03/05/25 11:16 03/05/25 11:20 03/05/25 11:40 Temperature 97.9 F Temperature Source Oral Pulse Rate 84 88 Pulse Rate [Left Radial] 83 Respiratory Rate 17 Blood Pressure 155/73 H 158/73 H Blood Pressure [Right Arm] 155/73 H Blood Pressure Mean [Right Arm] 100 Blood Pressure Source Blood Pressure Source [Right Arm] Automatic Cuff Blood Pressure Position Blood Pressure Position [Right Arm] Supine 02 Sat by Pulse Oximetry 97 98 96 Oxygen Delivery Method Room Air Room Air Room Air 03/05/25 12:00 03/05/25 12:20 03/05/25 12:40 Temperature Temperature Source Pulse Rate 75 73 64 Pulse Rate [Left Radial] Respiratory Rate Blood Pressure 134/74 149/65 H 153/70 H Blood Pressure [Right Arm] Blood Pressure Mean [Right Arm] Blood Pressure Source Blood Pressure Source [Right Arm] Blood Pressure Position Blood Pressure Position [Right Arm] 02 Sat by Pulse Oximetry 93 L 95 99 Oxygen Delivery Method Room Air Room Air Room Air 03/05/25 13:00 03/05/25 13:26 03/05/25 13:40 Temperature Temperature Source Pulse Rate 63 96 H 72 Pulse Rate [Left Radial] Respiratory Rate Blood Pressure 145/70 H 156/69 H 165/80 H Blood Pressure [Right Arm] Blood Pressure Mean [Right Arm] Blood Pressure Source Blood Pressure Source [Right Arm] Blood Pressure Position Blood Pressure Position [Right Arm] 02 Sat by Pulse Oximetry 97 95 100 Oxygen Delivery Method Room Air Room Air Room Air 03/05/25 14:00 03/05/25 14:30 Temperature 98.0 F Temperature Source Oral Pulse Rate 77 70 Pulse Rate [Left Radial] Respiratory Rate 18 Blood Pressure 159/73 H 165/79 H Blood Pressure [Right Arm] Blood Pressure Mean [Right Arm] Blood Pressure Source Automatic Cuff Blood Pressure Source [Right Arm] Blood Pressure Position Sitting Blood Pressure Position [Right Arm] 02 Sat by Pulse Oximetry 98 Oxygen Delivery Method Room Air Room Air Lab Data Lab results reviewed: Yes I reviewed the patient's lab results. Lab Results 03/05/25 11:16: WBC 4.1 L, RBC 2.94 L, Hgb 7.9 L, Hct 26.6 L, MCV 90.5, MCH 26.9 L, MCHC 29.7 L, RDW 13.8, Plt Count 199, MPV 9.9, Neut % (Auto) 69.9, Lymph % (Auto) 19.9, Jennings % (Auto) 9.0, Eos % (Auto) 0.0 L, Baso % (Auto) 0.7, Neut # (Auto) 2.9, Lymph # (Auto) 0.8, Jennings # (Auto) 0.4, Eos # (Auto) 0.0, Baso # (Auto) 0.0, Sodium 141, Potassium 4.9, Chloride 113 H, Carbon Dioxide 19 L, Anion Gap 13.9, BUN 45 H, Creatinine 3.00 H, Estimated Creat Clear 14, Estimated GFR 15 L*, Est GFR ( Amer) 18 L*, Glucose 125 H, Calcium 8.6, Total Bilirubin 0.3, AST 22, ALT 12, Alkaline Phosphatase 76, Total Protein 6.2 L, Albumin 3.6, Globulin 2.6, Albumin/Globulin Ratio 1.4, Lipase 156, HCV Ab CRISPIN w/Rflx PCR Qn Negative, HIV Ag/Ab Combo Qual Negative 03/05/25 12:40: SARS-CoV-2 (PCR) Not detected, Influenza A Untype (PCR) Not detected, Influenza Type B (PCR) Not detected 03/05/25 13:27: Urine Color Yellow, Urine Appearance Sl cloudy, Urine pH 6.0, Ur Specific [place] 1.020, Urine Protein 1+ A, Urine Glucose (UA) Negative, Urine Ketones Negative, Urine Blood Trace-i, Urine Nitrate Negative, Urine Bilirubin Negative, Urine Urobilinogen 0.2, Ur Leukocyte Esterase 1+ A, Urine RBC Occasional, Urine WBC 5-10, Ur Squamous Epith Cells 3-5, Amorphous Sediment 1+, Urine Bacteria 1+ 03/05/25 11:16 03/05/25 11:16 Orders (Tests/Meds): ED MEDICATIONS Discontinued Medications Generic Name Dose Route Start Last Admin Trade Name Freq PRN Reason Stop Dose Admin Levofloxacin 750 mg 03/05/25 13:55 03/05/25 14:30 Levofloxacin 750 Mg Tablet PO 03/05/25 13:56 750 mg ONCE ONE Administration ORDERS Category Date Time Status Complete Blood Count Auto Diff Stat Lab 03/05/25 11:16 Completed Comprehensive Metabolic Panel Stat Lab 03/05/25 11:16 Completed HIV Combo Stat Lab 03/05/25 11:16 Completed Hepatitis C Ab Qual. W/ RFX Stat Lab 03/05/25 11:16 Completed Lipase Stat Lab 03/05/25 11:16 Completed Rapid PCR Covid and Flu A/B Stat Lab 03/05/25 12:40 Completed Urinalysis and Microscopic Stat Lab 03/05/25 13:27 Completed Urine Culture Stat Micro 03/05/25 13:27 Received ECG Data Tracing #1: I reviewed this ECG and interpreted as documented below: Normal sinus rhythm with a ventricular rate of [address] changes concerning for ischemia. Normal intervals ECG initial impression date: 03/05/25 ECG initial impression time: 12:38 Medical Decision Narrative: In summary, this patient is a 75-year-old female presenting to the Emergency Department for evaluation of sore throat, diarrhea, dry heaves, and a episode of syncope. Daughter states that the patient has extensive history of vasovagal episodes and syncope in the past, and she feels this is likely similar. Patient denies any physical concerns or complaints at this time with the exception of mild sore throat. Differential diagnoses considered include but are not limited to viral syndrome, dehydration, electrolyte derangements, ELINA, gastroenteritis, dysrhythmia, vasovagal syncope. Ruling out the most morbid conditions drove assessment. It should be noted patient's history includes vasovagal CVA, brain lesion, hypothyroidism, CKD which may or may not be at goal therapy. This complicates all aspects of care by increasing patient's risk for morbidity. I reviewed patient's past medical records and noted previous neurology evaluations for brain lesion in the past, previous PCP evaluations for maintenance of health. On exam, the patient is lying in bed in no acute distress with no significant concerns or complaints. Vitals are normal on cardiac telemetry. Cardiopulmonary and abdominal exams are benign with no adventitious lung sounds, no murmurs, no localizable abdominal tenderness. She is at her neurologic baseline without any focal deficits. Workup included lab evaluation to evaluate for significant electrolyte derangements or ELINA as well as EKG given the vasovagal episode. EKG obtained is very reassuring. Please see their read for final interpretation. Labs were obtained that demonstrated reassuring CBC and chemistry. She has chronic anemia not significantly changed from prior labs, chronic elevation in creatinine is in the setting of CKD without criteria for ELINA at this time. Urinalysis is concerning for infection. On multiple subsequent reassessments, the patient is resting comfortably and states she is feeling fine with reassuring vital signs on cardiac telemetry. No recurrence of any concerning episodes of syncope or presyncope, no vomiting or diarrhea here. Ultimately, I feels likely had a vasovagal episode, which is common for her. I reviewed prior urine culture which was positive for Klebsiella that was fluoroquinolone resistant. Given evidence of UTI, will treat on an outpatient basis with Levaquin. I feel the patient is appropriate for discharge home with instructions for supportive management and close follow-up with primary care. Very strict return precautions given. Critical Care Critical Care Time Critical Care Time: No
[2025-03-05 12:59] LABS: Hepatitis C Ab Qual. W/ RFX NEGATIVE (Negative)
[2025-03-05 13:32] LABS: Microscopic, Urine URINE MICROSCOPIC (MICROSCOPIC)
[2025-03-05 13:33] LABS: Appearance,Urine SL CLOUDY (Clear); Bilirubin,Urine Negative (Negative); Blood, Urine TRACE-I (Negative); Color,Urine YELLOW (Yellow); Glucose,Urine (UA) Negative (Negative); Ketones,Urine Negative (Negative); Leukocyte Esterase,Urine 1+ (Negative); Nitrate,Urine Negative (Negative); Protein,Urine 1+ (Negative); Urobilinogen,Urine 0.2 EU/dl (0.2)
[2025-03-05 13:48] LABS: Coronavirus 19, PCR Not Detected (NotDetected); Influenza A, PCR Not Detected (NotDetected); Influenza B, PCR Not Detected (NotDetected)
[2025-03-05 13:49] LABS: Bacteria,Urine 1+ /lpf
[2025-03-05 13:50] LABS: Amorphous Sediment,Urine 1+ /lpf; RBC,Urine Occasional #/hpf (0-3)
[2025-03-05] MEDS: levoFLOXacin 750 MG TABLET PO (14:30)
== END 2025-03-05 14:43 | disposition home or self-care (01) ==
PROVIDERS: Emergency Provider Emergency Medicine; PCP Nurse Practitioner Family
DX: N39.0 Urinary tract infection, site not specified (principal); R19.7 Diarrhea, unspecified; R55 Syncope and collapse; R07.0 Pain in throat; R19.8 Other specified symptoms and signs involving the digestive system and abdomen; K58.9 Irritable bowel syndrome, unspecified; E03.9 Hypothyroidism, unspecified; I10 Essential (primary) hypertension
CPT/HCPCS: 80053; 81001; 83690; 85025; 86803; 87086; 87088; 87186; 87389; 87636; 93005; 99283

== ENCOUNTER 2025-03-31 07:45 | Outpatient (CLI) | payer MEDICARE, SELFPAY ==
--- NOTE | 2025-03-31 08:02 | MR_ITS ---
FINAL REPORT CLINICAL HISTORY: headaches/abnormal scan. F/U COMPARISON: 06/12/2024 FINDINGS: Multi planar MR imaging was obtained through the brain without contrast. The midline structures appear intact. There is no evidence of Chiari malformation. There is extensive abnormal signal present in the deep white matter, slightly greater on the left than on the right. In this age group, this likely represents moderate changes of ischemic microvascular disease. On diffusion-weighted images there is no evidence of restricted diffusion. The visualized paranasal sinuses demonstrate a retention cyst versus polyp in the right maxillary sinus. The seventh and eighth nerve root complexes are intact. There is a supraclinoid 6 mm focus of signal noted on the right side, best seen on image #15 of series 6, that is of generally decreased signal and difficult to localize on sagittal images. An aneurysm is once again not excluded. There is also a focus of signal anterior to the ewa measuring 7 x 6 mm in size, best seen on image #12 of series 6. This was described previously, and may represent a schwannoma or a meningioma. This is somewhat smaller than noted on the previous exam. IMPRESSION: Extensive changes of chronic ischemic microvascular disease remain present. The supraclinoid right sided hypointense region contiguous with the superior portion of the supraclinoid carotid artery on the right side remains present and is unchanged in appearance. An aneurysm is not excluded. Correlation with MR angiography might be helpful for further evaluation. Signal anterior to the ewa as previously described may represent a schwannoma or meningioma. This has decreased in size since the prior exam. Correlation with contrast-enhanced MRI might be helpful for further evaluation. Reviewed, Interpreted and Dictated by Danilo Vyas MD Transcribed by Anastasiia Garner Authenticated and [facility]
== END 2025-03-31 23:59 | disposition home or self-care (01) ==
PROVIDERS: Visit Provider Specialist
DX: R51.9 Headache, unspecified (principal); G93.89 Other specified disorders of brain; R53.1 Weakness
CPT/HCPCS: 70551

== ENCOUNTER 2025-06-17 08:32 | Outpatient (CLI) | payer MEDICARE, SELFPAY ==
--- OUTSIDE RECORDS SUMMARY | 2025-03-06 17:30 | XMS_ITS ---
Author Organization [facility] D GINNY Address [address] [place] [address] Care Team Providers Care Cell Tower Climber Name Role Phone Winston Webster Primary Care Provider Migration, Provider Unavailable Unavailable Allergies Allergen (clinical drug ingredient) Drug/Non Drug Allergy documented on EMR Reaction Allergy Type Onset Date Status IV DYES (uncoded) Unknown Allergy Ac tive Latex LATEX (uncoded) Unknown Allergy Acti ve angiotensin-converting enzyme inhibitor (FN) ANDREWS Inhibitors Unknown Drug Allergy Acti ve morphine Morphine Unknown Drug Allergy [facility] Conversion Encounter Medications Medication SIG [...] review and pick correct [facility]. If intended option is not [...] tab(s) orally every 6 hours Active Nystatin 380671 UNIT/GM 1 truong applied topically 3 times [...] Active Encounters Encounter Location Date Provider Diagnosis [facility] PED [place] [address] [facility] [address] [place] [address] 03/06/2025 Provider Migration Recurrent UTI N39.0 Assessments [...] Chacha HAYWARD ADOB:[birth year] (75 yo F)Acc No.[id number]:03/06/2025 Patient: Alejandra ELIZABETHChacha Provider: Yobany Mancera :1950 A ge:75 Y S ex:Female Date:03/06/2025 Address:[facility] [address], [id number] Pcp:Winston Webster Subjective: * Chief Complaints: * 1 . Multum To Medispan Conversion Encounter. * Medical History: * Medications: T aking Nystatin 141348 UNIT/GM Powder 1 truong applied topically 3 [...] Electronic signature of Prov ider Migration on 06/17/2025 at 08:35 AM EDT Sign off status: Pending * Provider: Yobany valderrama Migration Date: 0 03/06/2025 Generated for Printi ng/Ronda/Daviditting on: 0 06/17/2025 08:35 AM EDT
--- OUTSIDE RECORDS SUMMARY | 2025-05-06 10:45 | XMS_ITS | Encounter Summary ---
Author Organization [facility] Address [address] [place] [address] Care Team Providers Care Blacksmith Assistant Name Role Phone Liliana Gar YURIY Primary Care Provider [phone] Reason for Visit * Reason Comments Follow-up Encounter Details Date Type Department Care Team (Late st Contact Info) Description 05/06/2025 10:45 AM EDT [facility] Visit [facility] [address] [place] [address] Yareli Puga, DO [address] [place] [address] Systemic lupus erythematosus, organ or system involvement unspecified (CMS/HCC) (Primary Dx); Stage 4 chronic kidney disease (CMS/HCC) Social History Tobacco Use Types Packs/Day Years Used Date Smoking Tobacco: Never Passive Smoke Exposure: Never Smokeless Tobacco: Never Alcohol Use Standard Drinks/Week Comments No 0 (1 standard drink = 0.6 oz pure alcohol) Alcoholic Drinks/day: Never Drank Alcohol PHQ-2 Answer Date Recorded Patient Health Questionnaire-2 Score 0 05/06/2025 AUDIT-C Answer Date Recorded Q1: How often do you have a drink containing alc ohol? Never 05/06/2025 Average Number of Drinks Not on file 025 Frequency of Binge Drinking Not on file 04/2025 PHQ-2A Answer Date Recorded Patient Health Questionnaire-2 Score 1 12/04/2022 Comments Unknown Sex and Gender Information Value Date Recorded Sex Assigned at Not on file Legal Sex Female 7:36 PM EDT Gender Identity Not on file Sexual Orientation Not on file documented as of this encounter Last Filed Vital Signs Vital Sign Reading Time Taken Comments Blood Pressure 111/73 05/06/2025 10:46 AM EDT Pulse 99 05/06/2025 10:46 AM EDT Temperature 36.3 C (97.4 F) 05/06/2025 10:46 AM EDT Respiratory Rate 16 05/06/2025 10:46 AM EDT Oxygen Saturation 97% 05/06/2025 10:46 AM EDT Inhaled Oxygen Concentration - - Weight 56.9 kg (125 lb 7.1 oz) 05/06/2025 10:46 AM EDT Height 152.4 cm (5') 05/06/2025 10:46 AM EDT Body Mass Index 24.5 05/06/2025 10:46 AM EDT documented in this encounter Functional Status * Over the past 2 weeks, how often have you been bothered by any of the following problems? Question Answer Date of Assessment Author Little interest or pleasure in doing things Not at all 05/06/2025 10:53 AM EDT Annmarie Claire Feeling down, depressed, or hopeless Not at all 05/06/2025 10:53 AM EDT Annmarie Claire Patient Health Questionnaire -2 Score 0 05/06/2025 10:53 AM EDT Annmarie Claire documented as of this encounter Miscellaneous Notes * Progress Notes - Yareli Puga DO - 05/06/2025 10:45 AM EDT Rheumatology follow-up Prior patient, transferred to [place] 05/06/2025 Patient with SLE diagnosed 20+ years ago (arthritis, membranous lupus nephritis with stable CKD followed by Dr. Castillo), chronic LBP due to degenerative disc disease, and GERD. Uses rolling walker in her apartment. Goes everywhere in her Hoveround chair because of difficulty walking. She has a hover chair but is no longer able to take the bus to do grocery shopping. She lives alone and is able to cook very simple meals. She is no longer able to go to fast food restaurants. Her daughters and a granddaughter help out when she needs to get tests or see Dr. Webster. They don't live close by. Her daughter has cook helper pastry for her through hospice (patient declines dialysis). Plays on games on her tablet, reads, cooks sometimes. Keeps to herself by choice (with neighbors). If she feels depressed, she goes to [employer]. She gets anxious, then can can't breathe, and occasionally takes Xanax. Interim history: She reports feeling pretty good since last visit. Continues to be on HCQ and MMF. She has intermittent joint pain in her hands. No rashes, chest pain. Sometimes abdominal pain, attributes to IBS. She stays short of breath, reports that she has seen pulmonology in the past, it is not worsening, she is not currently on oxygen. She is living in an apartment on her own. She does get worried about her bills. She has neuropathy in her feet, describes pins and needs, reports this is about the same but doxepin helps. ROS negative unless listed above. Visit Vitals BP 111/73 Pulse 99 Temp 36.3 ??C (97.4 ??F) Ht 1.524 m (5') Wt 56.9 kg (125 lb 7.1 oz) SpO2 97% BMI 24.50 kg/m?? Physical Exam Constitutional: NAD. Eyes: No swelling, erythema of the lids. No conjunctival irritation. Pulmonary: No increased work of breathing or signs of respiratory distress. Lungs were clear to auscultation. Musculoskeletal: Sitting in Hoverround today. Digits normal without clubbing, cyanosis, ulcers, or pits. Nails were not dystrophic. Crepitus in shoulders and knees. Reversible swans on L hand. Decreased ROM in shoulders. Skin: scattered small ecchymoses on arms and abrasions on shins. Neurologic: Normal mental status. Psychiatric: Judgment and insight were normal. Orientated to person, place, and time. Mood and affect were normal. 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 -Diagnosis and treatment significantly limited by social determinant of health per prior note -SLE and high risk medication monitoring labs today -Follows with nephrology - on Tums for calcium supplementation, Cholecalciferol, and Nifedipine pernephrology recommendations Neuropathic sx--chronic stable Impairs sleep quality, reports that Doxepin helps Partially thrombosed right ICA aneurysm Following with neurosurgery, they plan to follow-up with [facility] for surveillance Right meckel's cave lesion Following with neurosurgery, they are planing to follow-up on this with MRI head Chronic Right thalamic stroke, Left thomas radiata stroke TIAs: left hand numbness, left facial droop Follows with neurology Hypothyroidism Anxiety GERD IBS Immunization History Administered Date(s) Administered Influenza, High-dose, Split Virus, Trivalent, Injectable, preservative free 11/24/2024 Influenza, high-dose, quadrivalent 07/22/2018, 08/18/2019, 09/06/2020, 09/19/2021 Influenza, injectable, quadrivalent 09/20/2015, 08/23/2016, 08/13/2017 Influenza, seasonal, injectable 09/08/2014 Influenza, seasonal, injectable, preservative free 08/21/2013 Moderna COVID-19 Vaccine ([employer]) 12+ years 01/26/2021, 02/23/2021 Pneumococcal Conjugate PCV 13 08/23/2016 Pneumococcal Polysaccharide PPV23 09/08/2014, 11/17/2019 Time spent: 25 minutes Follow-up: 4 months ADDENDUM: She should be on 300 mg of HCQ, new script sent. documented in this encounter Plan of Treatment Upcoming Encounters Date Type Department Care Team (Late st Contact Info) Description 09/06/2025 9:45 AM EDT Office Visit [facility] Medicine Specialties [address] [place] [address] Yareli Puga DO [address] [place] [address] 09/13/2025 2:20 PM EDT Office Visit [facility] [place] Min[facility] Met[facility] [address], [address] [place] [address] 10/22/2025 10:45 AM EST Appointment [facility] [address] [place] [address] 10/22/2025 12:15 PM EST Office Visit [facility] [address] [place] [address] Yan Rowland MD [address] [place] [address] documented as of this encounter Results * (ABNORMAL) Urinalysis with reflex microscopic (Culture NOT Included) (05/06/2025 11:38 AM EDT) Color, Urine Yellow LAB URINALYSIS - AUTOMATED METHOD 05/06/2025 1:11 PM EDT [facility] Clarity, Urine Cloudy LAB URINALYSIS - AUTOMATED METHOD 05/06/2025 1:11 PM EDT [facility] Spec [place], Urine 1.011 1.005 - 1.030 LAB URINALYSIS - AUTOMATED METHOD 05/06/2025 1:11 PM EDT [facility] pH, Urine 6.5 5.0 - 8.0 LAB URINALYSIS - AUTOMATED METHOD 05/06/2025 1:11 PM EDT [facility] Protein, Urine 100(A) Negative mg/dL LAB URINALYSIS - AUTOMATED METHOD 05/06/2025 1:11 PM EDT [facility] Glucose, Urine Negative Negative mg/dL LAB URINALYSIS - AUTOMATED METHOD 05/06/2025 1:11 PM EDT [facility] Ketones, Urine Negative Negative mg/dL LAB URINALYSIS - AUTOMATED METHOD 05/06/2025 1:11 PM EDT [facility] Blood, Urine Trace(A) Negative LAB URINALYSIS - AUTOMATED METHOD 05/06/2025 1:11 PM EDT [facility] Bilirubin, Urine Negative Negative LAB URINALYSIS - AUTOMATED METHOD 05/06/2025 1:11 PM EDT [facility] Urobilinogen, Urine 0.2 0.2 to 1.0 mg/dL LAB URINALYSIS - AUTOMATED METHOD 05/06/2025 1:11 PM EDT [facility] Leukocytes, Urine Large(A) Negative LAB URINALYSIS - AUTOMATED METHOD 05/06/2025 1:11 PM EDT [facility] Nitrite, Urine Negative Negative LAB URINALYSIS - AUTOMATED METHOD 05/06/2025 1:11 PM EDT [facility] RBC, Urine 1 0 to 3 /HPF LAB URINALYSIS - AUTOMATED METHOD 05/06/2025 1:11 PM EDT [facility] WBC, Urine >50(A) 0 to 5 /HPF LAB URINALYSIS - AUTOMATED METHOD 05/06/2025 1:11 PM EDT [facility] Squamous Epithelial Cells 0 - 2 0 to 5 /HPF LAB URINALYSIS - AUTOMATED METHOD 05/06/2025 1:11 PM EDT [facility] Hyaline Casts 0 - 2 0 to 5 /LPF LAB URINALYSIS - AUTOMATED METHOD 05/06/2025 1:11 PM EDT [facility] Bacteria, Urine Present Negative LAB URINALYSIS - AUTOMATED METHOD 05/06/2025 1:11 PM EDT [facility] Urine Urine specimen obtained by clean catch procedure / Unknown Non-blood Collection / Unknown 05/06/2025 11:38 AM EDT 05/06/2025 11:38 AM EDT Yareli Puga DO LAB URINE ORDERABLES Final Resu lt [facility] [address] [place] [address] * Protein, Random, Urine with Creatinine (05/06/2025 11:38 AM EDT) Protein, Urine 44 mg/dL 05/06/2025 1:14 PM EDT [facility] Creatinine, Urine 74 mg/dL 05/06/2025 1:14 PM EDT [facility] Protein/Creatin ine Ratio 0.6 mg/mg Creat 05/06/2025 1:14 PM EDT [facility] Urine Urine specimen obtained by clean catch procedure / Unknown Non-blood Collection / Unknown 05/06/2025 11:38 AM EDT 05/06/2025 11:38 AM EDT Yareli Puga LAB URINE ORDERABLES Final Resu lt Performing Organization Address [facility]/[place] [address] * C4 Complement (05/06/2025 11:27 AM EDT) C4 Complement 20 13 - 36 mg/dL 05/06/2025 1:40 PM EDT [facility] Blood Venous blood specimen / Unknown Venipuncture / Unknown 05/06/2025 11:27 AM EDT 05/06/2025 11:28 AM EDT Yareli [facility] LAB BLOOD ORDERABLES Final Resu lt Performing Organization Address [facility]/[place] [address] * C3 Complement (05/06/2025 11:27 AM EDT) C3 Complement 126 84 - 166 mg/dL 05/06/2025 1:40 PM EDT [facility] Blood Venous blood specimen / Unknown Venipuncture / Unknown 05/06/2025 11:27 AM EDT 05/06/2025 11:28 AM EDT Yareli [facility] LAB BLOOD ORDERABLES Final Resu lt Performing Organization Address [facility]/[place] [address] * Double-Stranded DNA (dsDNA) Antibody, IgG by IFA (05/06/2025 11:27 AM EDT) Double-Strande d DNA (dsDNA) Ab IgG IFA <1:10 <1:10 05/09/2025 5:15 AM EDT [facility] Blood Venous blood specimen / Unknown Venipuncture / Unknown 05/06/2025 11:27 AM EDT 05/06/2025 11:28 AM EDT Narrative [facility] - 05/09/2025 5:15 AM EDT INTERPRETIVE INFORMATION: Double-Stranded DNA (dsDNA) Antibody, IgG by IFA (using Crithidia luciliae) Positivity for anti-double stranded DNA (anti-dsDNA) IgG antibody is a diagnostic criterion of systemic lupus erythematosus (SLE). The presence of the anti-dsDNA IgG antibody is identified by IFA titer (Crithidia luciliae indirect fluorescent test [ROBI]). ROBI is highly specific for SLE with a sensitivity of 50-60 percent. Some patients with early or inactive SLE may be positive for anti-dsDNA IgG by TAMRA but negative by ROBI. If the ROBI result is negative but the patient has a positive TAMRA and clinical suspicion remains, consider antinuclear antibody (SREEDHAR) testing by IFA. Additional information and recommendations for testing may be found at [email or web address]. Performed By: [employer] [address] [place] [address] Supervisor Tower: Enmanuel Jaime MD, PhD CLIA Number: [id number] [employer] LAB BLOOD ORDERABLES Final Resu lt Performing Organization Address City/[facility]/ZIP Co de Phone Number [facility] [address] [place] [address] * Sedimentation Rate, Automated (05/06/2025 11:27 AM EDT) Pathologist [facility] Sedimentation Rate 16 <30 mm/hr 2024 1:20 PM EDT [facility] Blood Venous blood specimen / Unknown Venipuncture / Unknown 05/06/2025 11:27 AM EDT 05/06/2025 11:28 AM EDT [employer] LAB BLOOD ORDERABLES Final Resu lt [facility] [address] [place] [address] * C-Reactive Protein, Plasma (05/06/2025 11:27 AM EDT) Pathologist [facility] CRP, Plasma <3.0 <=8.0 mg/L 05/06/2025 1:28 PM EDT [facility] Blood Venous blood specimen / Unknown Venipuncture / Unknown 05/06/2025 11:27 AM EDT 05/06/2025 11:28 AM EDT Narrative [facility] - 05/06/2025 1:28 PM EDT This CRP test is appropriate for assessment of infection, systemic inflammation and/or tissue injury. To assess cardiovascular disease risk order high sensitivity CRP (CRPH). us Yareli Puga DO LAB BLOOD ORDERABLES Final Resu lt [facility] [address] [place] [address] * (ABNORMAL) Comprehensive Metabolic Panel, Plasma (05/06/2025 11:27 AM EDT) Glucose, Plasma 94 74 - 99 mg/dL 05/06/2025 1:28 PM EDT [facility] BUN, Plasma 40(H) 8 - 23 mg/dL 05/06/2025 1:28 PM EDT [facility] Creatinine, Plasma 3.36(H) 0.60 - 1.10 mg/dL 05/06/2025 1:28 PM EDT [facility] BUN/Creatinine Ratio 12 05/06/2025 1:28 PM EDT [facility] Sodium, Plasma 138 136 - 145 mmol/L 05/06/2025 1:28 PM EDT [facility] Potassium, Plasma 4.2 3.6 - 4.9 mmol/L 05/06/2025 1:28 PM EDT [facility] Chloride, Plasma 100 97 - 107 mmol/L 05/06/2025 1:28 PM EDT [facility] CO2, Plasma 21(L) 22 - 29 mmol/L 05/06/2025 1:28 PM EDT [facility] Anion Gap 17(H) 6 - 16 mmol/L 05/06/2025 1:28 PM EDT [facility] Total Calcium, Plasma 8.5(L) 8.9 - 10.2 mg/dL 05/06/2025 1:28 PM EDT [facility] Total Protein 6.6 6.3 - 7.9 g/dL 05/06/2025 1:28 PM EDT [facility] Albumin, Plasma 4.0 3.5 - 5.2 g/dL 05/06/2025 1:28 PM EDT [facility] AST, Plasma 19 10 - 35 U/L 05/06/2025 1:28 PM EDT [facility] ALT, Plasma 9(L) 10 - 35 U/L 05/06/2025 1:28 PM EDT [facility] Alkaline Phosphatase, Plasma 90 46 - 142 U/L 05/06/2025 1:28 PM EDT [facility] Total Bilirubin, Plasma 0.2 0.2 - 1.1 mg/dL 05/06/2025 1:28 PM EDT [facility] eGFRcr 13.7 mL/min/1.7 3m*2 05/06/2025 1:28 PM EDT [facility] Comment:Reported eGFRcr in m L/min/1.73m2 is based the CKD-EPI 2020 equation that does not use a race coefficient. Blood Venous blood specimen / Unknown Venipuncture / Unknown 05/06/2025 11:27 AM EDT 05/06/2025 11:28 AM EDT Yareli Puga DO LAB BLOOD ORDERABLES Final Resu lt [facility] [address] [place] [address] * (ABNORMAL) CBC and Differential (05/06/2025 11:27 AM EDT) WBC Count 6.34 3.70 - 10.30 10*3/uL LAB HEMATOLOGY METHOD 05/06/2025 1:07 PM EDT [facility] RBC Count 3.09(L) 3.90 - 5.20 10*6/uL LAB HEMATOLOGY METHOD 05/06/2025 1:07 PM EDT [facility] HGB 8.3(L) 11.2 - 15.7 g/dL LAB HEMATOLOGY METHOD 05/06/2025 1:07 PM EDT [facility] HCT 28.0(L) 34.0 - 45.0 % LAB HEMATOLOGY METHOD 05/06/2025 1:07 PM EDT [facility] Platelet Count 283 155 - 369 10*3/uL LAB HEMATOLOGY METHOD 05/06/2025 1:07 PM EDT [facility] MCV 91 79 - 98 fL LAB HEMATOLOGY METHOD 05/06/2025 1:07 PM EDT [facility] MCH 26.9 26.0 - 32.0 pg LAB HEMATOLOGY METHOD 05/06/2025 1:07 PM EDT [facility] MCHC 29.6(L) 30.7 - 35.5 g/dL LAB HEMATOLOGY METHOD 05/06/2025 1:07 PM EDT [facility] RDW 14.6(H) 11.5 - 14.5 % LAB HEMATOLOGY METHOD 05/06/2025 1:07 PM EDT [facility] MPV 10.0 8.8 - 12.5 fL LAB HEMATOLOGY METHOD 05/06/2025 1:07 PM EDT [facility] nRBC 0.0 <=0.0 per 100 WBCs LAB HEMATOLOGY METHOD 05/06/2025 1:07 PM EDT [facility] Differential Type Automated LAB HEMATOLOGY METHOD 05/06/2025 1:07 PM EDT [facility] Neutrophils % 64 % LAB HEMATOLOGY METHOD 05/06/2025 1:07 PM EDT [facility] Lymphocytes % 23 % LAB HEMATOLOGY METHOD 05/06/2025 1:07 PM EDT [facility] Monocytes % 10 % LAB HEMATOLOGY METHOD 05/06/2025 1:07 PM EDT [facility] Eosinophils % 2 % LAB HEMATOLOGY METHOD 05/06/2025 1:07 PM EDT [facility] Basophils % 1 % LAB HEMATOLOGY METHOD 05/06/2025 1:07 PM EDT [facility] Immature Granulocytes % 0 % LAB HEMATOLOGY METHOD 05/06/2025 1:07 PM EDT [facility] Neutrophils Absolute 4.13 1.60 - 6.10 10*3/uL LAB HEMATOLOGY METHOD 05/06/2025 1:07 PM EDT [facility] Lymphocytes Absolute 1.43 1.20 - 3.90 10*3/uL LAB HEMATOLOGY METHOD 05/06/2025 1:07 PM EDT [facility] Monocytes Absolute 0.60 0.30 - 0.90 10*3/uL LAB HEMATOLOGY METHOD 05/06/2025 1:07 PM EDT [facility] Eosinophils Absolute 0.12 0.00 - 0.50 10*3/uL LAB HEMATOLOGY METHOD 05/06/2025 1:07 PM EDT [facility] Basophils Absolute 0.04 0.00 - 0.10 10*3/uL LAB HEMATOLOGY METHOD 05/06/2025 1:07 PM EDT [facility] Immature Granulocytes Absolute 0.02 0.00 - 0.06 10*3/uL LAB HEMATOLOGY METHOD 05/06/2025 1:07 PM EDT [facility] Blood Venous blood specimen / Unknown Venipuncture / Unknown 05/06/2025 11:27 AM EDT 05/06/2025 11:28 AM EDT Narrative [facility] - 05/06/2025 1:07 PM EDT Therapeutic decision making should be based on absolute values, rather than percentages. Yareli Puga DO LAB BLOOD ORDERABLES Final Resu lt [facility] [address] [place] [address] documented in this encounter Visit Diagnoses Diagnosis Systemic lupus erythematosus, organ or system involvement unspecified (CMS/HCC)- Primary Stage 4 chronic kidney disease (CMS/HCC) documented in this encounter Additional Health Concerns Assessment Noted Time A fall risk assessment has been complete d for the patient 05/06/2025 10:53 AM EDT A Body Mass Index follow-up plan has been documented for the patient 05/06/2025 11:10 AM EDT documented as of this encounter Care Teams Blacksmith Assistant Relationship Specialty Start Date End Date Liliana Gar APRN [address] [place] [address] PCP - General 02/23/25 documented as of this encounter
--- OUTSIDE RECORDS SUMMARY | 2025-05-10 11:00 | XMS_ITS | Encounter Summary ---
Author Organization [facility] Address [address] [place] [address] Care Team Providers Care Staff [employer] Officer Name Role Phone Liliana Gar YURIY Primary Care Provider [phone] Reason for Referral * (Routine) - Authorized Specialty Diagnoses / Procedures Referred By Gaby presley Referred To Contact Diagnoses Benign essential hypertension Enmanuel Castillo MD [address] [place] [address] Phone: tel: fax: Referral ID Status Reason Start Date Expiration Date V isits Requested Visits Authorized [id number] Authorized 05/10/2025 11/09/2026 1 1 Encounter Details Date Type Department Care Team ([facility] st Contact Info) Description 05/10/2025 11:00 AM EDT Office Visit Professional [facility] Nephrology, Bone & Mineral Metabolism [address], [address] [place] [address] Enmanuel Castillo MD [address] [place] [address] Anemia in other chronic diseases classified elsewhere (Primary Dx); Benign essential hypertension; Stage 4 chronic kidney disease (CMS/HCC) Social History Tobacco Use Types Packs/Day Years Used Date Smoking Tobacco: Never Passive Smoke Exposure: Never Smokeless Tobacco: Never Tobacco Cessation:Counseling Given: Not Answered Alcohol Use Standard Drinks/Week Comments No 0 [...] Sign Reading Time Taken Comments Blood Pressure 124/81 05/10/2025 10:46 AM EDT Pulse 80 05/10/2025 10:46 AM EDT Temperature 36.7 C (98.1 F) 05/10/2025 10:46 AM EDT Respiratory Rate 16 05/10/2025 10:46 AM EDT Oxygen Saturation 95% 05/10/2025 10:46 AM EDT Inhaled Oxygen Concentration - - Weight 56.7 kg (125 lb) 05/10/2025 10:46 AM EDT PER P T Height 152.4 cm (5') 05/10/2025 10:46 AM EDT PER PT Body Mass Index 24.41 05/10/2025 10:46 AM EDT documented in this encounter Miscellaneous Notes * Progress Notes - Enmanuel Castillo MD - 05/10/2025 11:00 AM EDT SUBJECTIVE Myriam Hayward is a 75 y.o. female who presents for follow-up. Ms. Hayward is a 75 y.o. female with a history of systemic lupus diagnosed years ago, and also a history of membranous lupus nephritis. Her . She remains on CellCept 500 mg and plaquenil. She follows with [facility]. She has a history of recurrent urinary infections, but no recent episodes. 05/10/25 Had virus 02/23, felt dehydrated, stomach bug, no hospital stay Nifedipine daily, either am or pm Intermittent headaches/migraines, has tylenol and nurtec Intermittent UTI, no symptoms today She had been on KALINA in past, not sure last dose; previously would receive in mail and take to localprovider for injection OBJECTIVE Vitals: 05/10/25 1046 BP: 124/81 Pulse: 80 Resp: 16 Temp: 36.7 ??C (98.1 ??F) SpO2: 95% PHYSICAL EXAMINATION Constitutional: No acute distress, well-nourished Respiratory: no signs of respiratory distress Cardiovascular: Regular rate, No JVD Gastrointestinal: Soft, non-tender, non-distended Ext: No edema; uses mobile chair Neurologic: Alert and oriented Renal Panel: Lab Results Component Value Date NA 138 05/06/2025 NA 140 01/11/2025 NA 140 09/28/2024 K 4.2 05/06/2025 K 5.1 (H) 01/11/2025 K 4.0 09/28/2024 CL 100 05/06/2025 CO2 21 (L) 05/06/2025 CO2 22 01/11/2025 CO2 22 09/28/2024 BUN 40 (H) 05/06/2025 BUN 43 (H) 01/11/2025 BUN 30 (H) 09/28/2024 CREATININE 3.36 (H) 05/06/2025 CREATININE 2.71 (H) 01/11/2025 CREATININE 2.41 (H) 09/28/2024 EGFR 13.7 05/06/2025 EGFR 17.8 01/11/2025 EGFR 20.5 09/28/2024 ALBUMIN 4.0 05/06/2025 ALBUMIN 4.1 01/11/2025 ALBUMIN 3.9 09/28/2024 MBD: Lab Results Component Value Date PTH 415 (H) 05/06/2025 PTH 498 (H) 01/11/2025 PTH 407 (H) 09/28/2024 VITD25 48.3 05/06/2025 VITD25 45.1 01/11/2025 VITD25 29.5 09/28/2024 CALCIUM 8.5 (L) 05/06/2025 CALCIUM 8.7 (L) 01/11/2025 CALCIUM 8.9 09/28/2024 ICAS 5.0 08/04/2019 ICAS 5.0 02/04/2018 ICAS 5.0 08/21/2016 PHOS 4.5 05/06/2025 PHOS 5.0 (H) 01/11/2025 PHOS 4.7 (H) 09/28/2024 MG 1.7 (L) 04/05/2020 MG 1.9 04/04/2020 MG 2.2 04/03/2020 VITAMIN D 1,25 No results found for: VITD32 PTHRP No results found for: PLASMA Paraproteinemia Labs: No results found for: SPEP , KAPPALAMBDA Nutritional: Lab Results Component Value Date VITD25 48.3 05/06/2025 Endocrine profile: Lab Results Component Value Date TSH 3.77 03/29/2020 FREET4 0.8 03/29/2020 CORTISOL 17.7 03/30/2020 CBC: Lab Results Component Value Date WBC 6.34 05/06/2025 WBC 5.86 01/11/2025 WBC 6.02 09/28/2024 RBC 3.09 (L) 05/06/2025 HGB 8.3 (L) 05/06/2025 HGB 9.4 (L) 01/11/2025 HGB 8.8 (L) 09/28/2024 HCT 28.0 (L) 05/06/2025 PLT 283 05/06/2025 PLT 303 01/11/2025 PLT 295 09/28/2024 MCV 91 05/06/2025 MCV 87 01/11/2025 MCV 91 09/28/2024 MCH 26.9 05/06/2025 MCHC 29.6 (L) 05/06/2025 RDW 14.6 (H) 05/06/2025 NRBC 0.0 05/06/2025 Iron studies: Lab Results Component Value Date FERRITIN 641 (H) 01/11/2025 FERRITIN 766 (H) 09/28/2024 FERRITIN 614 (H) 04/03/2020 IRON 44 01/11/2025 IRON 60 09/28/2024 IRON 28 (L) 04/03/2020 IRON 29 (L) 04/03/2020 TIBC 223 (L) 01/11/2025 TRANSFERNSAT 20 01/11/2025 TRANSFERNSAT 28 09/28/2024 TRANSFERNSAT 17 04/03/2020 ASSESSMENT/PLAN 1. 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 Asymptomatic bacteriuria 3. Systemic lupus with membranous nephropathy, - on MMF and plaquenil, no recent flares - Follows with [facility] 4. Hypertension, - BP well controlled on current regimen 5. Renal osteodystrophy. - Vit D 25, PTH pending from today - On tums, previous hypocalcemia with prolia 6. Anemia, chronic disease - Hb <10; iron 2/25 in normal range - will attempt to resume KALINA, Dr. Cuellar with pharm to assist RTC with repeat labs in 4 months. documented in this encounter Plan of Treatment Upcoming Encounters Date Type Department Care Team (Late st Contact Info) Description 09/06/2025 9:45 AM EDT Office Visit [facility] Medicine Specialties [address] [place] [address] Yareli Puga DO [address] [place] [address] 09/13/2025 2:20 PM EDT Office Visit [facility] Nephrology, Bone & Mineral Metabolism [address], [address] [place] [address] 10/22/2025 10:45 AM EST Appointment [facility] [address], [address] [place] [address] 10/22/2025 12:15 PM EST Office Visit [facility] [address], [address] [place] [address] Yan Rowland MD [address] [place] [address] Scheduled Orders Name Type Priority Associated Diagnoses Orde r Schedule Renal Function Panel, Plasma Lab Routine Benign essential hypertension Anemia in other chronic diseases classified elsewhere Stage 4 chronic kidney disease (CMS/HCC) Expected: 09/09/2025 (Approximate), Expires: 11/11/2026 CBC W/O Differential Lab Routine Benign essential hypertension Anemia in other chronic diseases classified elsewhere Stage 4 chronic kidney disease (CMS/HCC) Expected: 09/09/2025 (Approximate), Expires: 11/11/2026 Scheduled Referrals Name Type Priority Associated Diagnoses Orde r Schedule Follow Up Nephrology Outpatient Referral Routine Benign essential hypertension Expected: 09/09/2025 (Approximate), Expires: 06/09/2026 documented as of this encounter Visit Diagnoses Diagnosis Anemia in other chronic diseases classified elsewhere- Primary Benign essential hypertension Essential hypertension, benign Stage 4 chronic kidney disease (CMS/HCC) documented in this encounter Additional Health Concerns Assessment Noted Time A fall risk assessment has been complete d for the patient 05/10/2025 10:48 AM EDT A Body Mass Index follow-up plan has been documented for the patient 05/06/2025 11:10 AM EDT documented as of this encounter Care Teams Staff [employer] Officer Relationship Specialty Start Date End Date Liliana Gar APRN [address] [place] [address] PCP - General 02/23/25 documented as of this encounter
--- OUTSIDE RECORDS SUMMARY | 2025-05-17 11:00 | XMS_ITS ---
Author Organization [facility] D GINNY Address [address] [place] [address] Care Team Providers Care Transitional Studies Instructor Name Role Phone DarinWinston Primary Care Provider Liliana Avalos Unavailable [phone] Allergies Allergen (clinical drug ingredient) Drug/Non Drug Allergy documented on EMR Reaction Allergy Type Onset Date Status IV DYES (uncoded) Unknown Allergy Ac tive Latex LATEX (uncoded) Unknown Allergy Acti ve angiotensin-converting enzyme inhibitor (FN) ANDREWS Inhibitors Unknown Drug Allergy Acti ve morphine Morphine Unknown Drug Allergy Active Results Component Value Reference Range Notes COMPREHENSIVE METABOLIC PANE L (93308) Reviewed date:05/19/2025 10:59:23 AM Interpretation: Performing Lab:CB, [facility] [id number] [facility], [id number] Olivier Albert Notes/Report: NON-FASTING; NON-FASTING; NON-FASTING GLUCOSE 94 65-99 mg/dL Fasting reference interval UREA NITROGEN (BUN) 55 7-25 mg/dL CREATININE 3.55 0.60-1.00 mg/dL EGFR 13 > OR = 60 mL/min/1.73m2 BUN/CREATININE RATIO 15 6-22 (calc) SODIUM 139 135-146 mmol/L POTASSIUM 5.3 3.5-5.3 mmol/L CHLORIDE 107 98-110 mmol/L CARBON DIOXIDE 20 20-32 mmol/L CALCIUM 8.7 8.6-10.4 mg/dL PROTEIN, TOTAL 6.8 6.1-8.1 g/dL ALBUMIN 4.2 3.6-5.1 g/dL GLOBULIN 2.6 1.9-3.7 g/dL (calc) ALBUMIN/GLOBULIN RATIO 1.6 1.0-2.5 (calc) BILIRUBIN, TOTAL 0.3 0.2-1.2 mg/dL ALKALINE PHOSPHATASE 86 37-153 U/L AST 12 10-35 U/L ALT 5 6-29 U/L CBC (INCLUDES DIFF/PLT) (639 9) Reviewed date:05/19/2025 10:59:23 AM Interpretation: Performing Lab:CB, [facility] [id number], [id number] Olivier Albert Notes/Report: NON-FASTING; NON-FASTING; NON-FASTING WHITE BLOOD CELL COUNT 6.4 3.8-10.8 Thousand/ uL RED BLOOD CELL COUNT 3.21 3.80-5.10 Million/uL HEMOGLOBIN 8.7 11.7-15.5 g/dL HEMATOCRIT 28.7 35.0-45.0 % MCV 89.4 80.0-100.0 fL MCH 27.1 27.0-33.0 pg MCHC 30.3 32.0-36.0 g/dL For adults, a slight decrease in the calculated MCHC value (in the range of 30 to 32 g/dL) is most likely not clinically significant; however, it should be interpreted with caution in correlation with other red cell parameters and the patient's clinical condition. RDW 14.9 11.0-15.0 % PLATELET COUNT 279 140-400 Thousand/uL MPV 9.7 7.5-12.5 fL ABSOLUTE NEUTROPHILS 4762 8839-3417 cells/uL ABSOLUTE LYMPHOCYTES 8226 176-7954 cells/uL ABSOLUTE MONOCYTES 531 200-950 cells/uL ABSOLUTE EOSINOPHILS 32 15-500 cells/uL ABSOLUTE BASOPHILS 32 0-200 cells/uL NEUTROPHILS 74.4 LYMPHOCYTES 16.3 MONOCYTES 8.3 EOSINOPHILS 0.5 BASOPHILS 0.5 TSH W/REFLEX TO FT4 (33178) Reviewed date:05/19/2025 10:59:23 AM Interpretation: Performing Lab:JOSÉ LUIS, [facility] [id number], [id number] Olivier Albert Notes/Report: NON-FASTING; NON-FASTING; NON-FASTING NON-FASTING; NON-FASTING; NON-FASTING TSH W/REFLEX TO FT4 0.11 0.40-4.50 mIU/L T4, FREE 1.0 0.8-1.8 ng/dL Reason For Referral Reason wheelchair Diagnosis 1 Weakness (R53.1) Referral Organization [facility] Referring Provider First Name Liliana Referring Provider Last Name Robbie Referring Provider Speciality [facility] Referred Provider Specialty DME General Notes Amanda Rae 2024 01:00:49 PM >Has [employer] HMO can't do Romy- sent to [facility] Referral Priority Routine REASON FOR VISIT med ck, refill on xanax, wheelchair Medications Medication SIG (Take, Route, Frequency, Duration) Notes Start Date End Date Status busPIRone HCl 10 MG 1 tab(s) orally 2 times a day; Duration: 90 days Active Sodium Bicarbonate 650 MG TAKE 2 TABLETS THREE TIMES DAILY; Duration: 90 days Active Levothyroxine Sodium 150 MCG 1 tab(s) orally once a day; Duration: 90 days Active Mirtazapine 15 MG 1 tab(s) orally once a day; Duration: 90 days Active Sertraline HCl 25 MG 1 tab(s) orally once a day; Duration: 90 days Active Imitrex 100 MG 1 tab(s) orally once at onset of migraine; Duration: 90 days Active Dicyclomine HCl 10 MG 1 cap(s) orally twice daily; Duration: 90 days Active NURTEC ODT 75 MG 1 TAB(S) ORALLY EVERY OTHER DAY; Duration: 30 DAYS *Please review for potential replacement for e-prescription and drug interaction check* Active Xanax 0.25 MG 1 tab(s) orally daily; Duration: 30 days 04/21/2024 Active Hydroxychloroquine Sulfate 300 MG 1 tab(s) orally twice a day; Duration: 30 days Active Doxepin HCl 10 MG 2 TABS orally at bedtime as needed Active Mycophenolate Mofetil 500 MG 1 tab(s) orally 2 times a day Active Fiber Choice 1.5 GM 2 tab(s) chewed 2 times a day Active Acetaminophen 500 MG 2 tab(s) orally every 6 hours Active Cholecalciferol 50 MCG (2000 UT) 1 capsule Orally Once a day Active NIFEdipine 10 MG 1 capsule as needed Orally every 8 hrs Active Fluticasone Propionate 50 MCG/ACT 1 spray in each nostril Nasally Twice a day Active Cetirizine HCl 10 MG 1 tablet Orally Once a day; Duration: 90 days 05/18/2025 Active Problems Problem Type SNOMED Code ICD Code Onset Dates Problem Status W/U Status Risk Notes Problem Seasonal allergy (868035008) Seasonal allergies (J30.2) Active confirmed Problem Essential hypertension (46629178) Essential hypertension (I10) Active confirmed Vital Signs Temperature 98.2 degrees Fahrenheit 05/17/20 25 Blood pressure systolic 158 mm Hg 05/17/20 25 Blood pressure diastolic 84 mm Hg 025 Heart Rate 78 /min 05/17/2025 Height 61 in 05/17/2025 Weight 120 lbs 05/17/2025 BMI 22.67 kg/m2 05/17/2025 Encounters Encounter Location Date Provider Diagnosis [address] [address] 05/17/2025 Liliana Robbie Hypothyroidism (acqu ired) E03.9 ; Encounter for Medicare annual wellness exam Z00.00 ; Lupus nephritis 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 Will check tsh and treat as indicated 05/17/2025 Encounter for Medicare annual wellness exam (ICD-10 - Z00.00) Given patient''s advanced age is not a candidate for typical healthcare screening such as colonoscopy. No recent falls. Up-to-date with vaccinations. Nonsmoker. Patient is a DNR, healthcare surrogate is daughter Kellee 05/17/2025 Lupus nephritis (ICD-10 - M32.14) Following with rheumatology and nephrology. No recent changes. Previously followed by Hospice, remains palliative care 05/17/2025 Arthritis involving multiple sites (ICD-10 - M12.9) At baseline 05/17/2025 Moderate episode of recurrent major depressive disorder (ICD-10 - F33.1) Stable on SSRI. No changes made today 05/17/2025 Gastroesophageal reflux disease without esophagitis (ICD-10 - K21.9) Well controlled 05/17/2025 Irritable bowel syndrome with diarrhea (ICD-10 - K58.0) Stable at baseline on bentyl 05/17/2025 Brain lesion (ICD-10 - G93.9) Declines further imaging or FU at this time. Seen by neuro in the past. 05/17/2025 BMI 22.0-22.9, adult (ICD-10 - Z68.22) BMI is acceptable 05/17/2025 Weakness (ICD-10 - R53.1) Patient is unable to safely ambulate at times within the home with a walker or a cane due to poor exercise tolerance and pain associated with lupus and OA. Needs WC for safe ambulation in and out of the home and for transport to appointments. 05/17/2025 Seasonal allergies (ICD-10 - J30.2) Reassurance, no acute infection. Supportive care discussed. Add antihistamine 05/17/2025 ANGE (generalized anxiety disorder) (ICD-10 - F41.1) Well controlled CSA updated and placed on chart Edmund report reviewed and is appropriate - discussed ongoing use of controlled medication and safety associated with these medications 05/17/2025 Essential hypertension (ICD-10 - I10) Blood pressure above goal in office today, patient has been at goal at all over appointment and on home log. No changes made today. Will continue to monitor Plan Of Treatment Medication Medication Name Sig Start Date Stop Date Notes Cetirizine HCl 10 MG 1 tablet Orally Onc e a day; Duration: 90 days 05/18/2025 Treatment Notes Assessment Notes Hypothyroidism (acquired) On synthroid. Will check tsh and treat as indicated Encounter for Medicare annual wellness e xam Given patient''s advanced age is not a candidate for typical healthcare screening such as colonoscopy. No recent falls. Up-to-date with vaccinations. Nonsmoker. Patient is a DNR, healthcare surrogate is daughter Kellee Lupus nephritis Following with rheum atology and nephrology. No recent changes. Previously followed by Hospice, remains palliative care Arthritis involving multiple sites At [facility] Moderate episode of recurren t major depressive disorder Stable on SSRI. No changes made today Gastroesophageal reflux dise ase without esophagitis Well controlled Irritable bowel syndrome with diarrhea S table at baseline on bentyl Brain lesion Declines further stefanie ging or FU at this time. Seen by neuro in the past. BMI 22.0-22.9, adult BMI is acceptable Weakness Patient is unable to safely ambulate at times within the home with a walker or a cane due to poor exercise tolerance and pain associated with lupus and OA. Needs WC for safe ambulation in and out of the home and for transport to appointments. Seasonal allergies Reassurance, no acut e infection. Supportive care discussed. Add antihistamine ANEG (generalized anxiety disorder) Well controlled CSA updated and placed on chart Edmund report reviewed and is appropriate - discussed ongoing use of controlled medication and safety associated with these medications Essential hypertension Blood pressure ab ove goal in office today, patient has been at goal at all over appointment and on home log. No changes made today. Will continue to monitor Referrals Referral Date Details 05/18/2025 05/18/2025, mayra darling Next Appt Details Follow Up: 6 Months,prn, Pricilla son: Progress Notes * Chacha HAYWARD ADOB:[birth year] (75 yo F)Acc No.[id number]:05/17/2025 Progress Notes Patient: Chacha MONDRAGON Provider: Phu Avalos APRN :1950 A ge:75 Y S ex:Female Date:05/17/2025 [facility] Pcp:Winston Webster Subjective: * Chief Complaints: * 1 . Med ck. 2. Refill on xanax. 3. Wheelchair. * HPI: g en: 75 yr old female with multiple chronic medical conditions presents and annual Medicare Wellness exam Migraines/brain lesion- uses nurtec and imitrex prn which works well. Followed with neuro, serial scans unchanged. Does not want any further imaging Seasonal allergies- chronic PND, using flonase PRN, stopped antihistamine, not sure why. Hypothyroidism- on Synthroid Lupus nephritis- follows with nephrology, creatinine stable at 2.8. Previously followed by Hospice, creatinine at that time was over 4. Uses [employer] ([employer]) when she leaves the house. Has home health to assist with bathing, housework and meals. Needs WC for appointments and to help navigate inside of the home Depression/anxiety/Insomnia- stable on current regimen. Anxiety well controlled. Uses xanax rarely. No sleep issues. GERD- well controlled on PPI Anemia- chronic, due for CBC today,, on PPI, iron, likely related to multiple factors- CKD, HIEU, multiple chronic disease states HTN- b/p above goal. Contributes to stressful morning. Late to her appointment. Good control on home log and at other appointments. D enies CP, SOA, dizziness IBS- Well controlled on Bentyl, rarely occurs, depend on what she eats, no blood or mucous. PVM- Mammogram last year normal, does not want anymore. Declines c-scope. Immunizations UTD. * ROS: A LLERGY: no R unny nose. n o S cratchy throat. ? F UNCTIONAL STATUS: ADLS I mpaired ADL/IADL - home health, [employer], family assists in care. R ESPIRATORY: Shortness of breath y es, w orse with exertion, at baseline. C ARDIOLOGY: no C hest pain. n o P alpitations. n o L eg edema. C ONSTITUTIONAL: no L oss of appetite. n o F ever. W eakness?yes. D ERMATOLOGY: See HPI Y es. G ASTROENTEROLOGY: Nausea y es. n o V omiting. n o A bdominal pain. D iarrhea y es, c hronic, intermittent. M USCULOSKELETAL: back pain y es. J oint stiffness y es. J oint pain y es. N EUROLOGY: Headache y es. n o D izziness. P SYCHOLOGY: Depression y es, i mproved on sertraline. n o S leep disturbances. n o S uicidal ideation. A nxiety y es, w ell controlled.? U ROLOGY: no D ifficulty urinating. n o B lood in urine. n o F requent urination. U rinary incontinence y es. * Medical History: S LE-diagnosed 5 years ago-has lupus nephritis, rheumatoid arthritis-follows with at [facility]ology., stage III chronic kidney disease from lupus, Hypertension, Hyperlipidemia, Anxiety disorder, Hysterectomy, Colonoscopy 12/14 - floppy colon with diverticulosis - next due 12/19, GERD, Hemorrhoids, UTI, normal DEXA scan September 2015 - mild osteopenia on DEXA scan 02/17, Colonosocopy 12/20 with tubular adenoma, benign-appearing mammogram 02/17 -and again normal in October 2021, CHF. * Surgical History: T AH , Benign lung tumor , Right foreram ORIF , Bilateral cataract excisions , Hemmorhoids 2012. * Hospitalization/Major Diagno stic Procedure: f luid 2008, dehydration 09/2017, pneumonia 04/2020, ELINA 06/2020, UTI 06/2021, UTI , blood work 05/2022, [place] [facility] for 10 day 06/2022. * Family History: F ather: , cancer, colon, diagnosed with Cancer. M other: alive, breast cancer, diagnosed with Diabetes, Hypertension, Cancer. P aternal Grand Father: . P aternal Grand Mother: . M aternal Grand Father: . M aternal Grand Mother: .?Paternal uncle: alive. P aternal aunt: alive. M aternal uncle: , diabetes. M aternal aunt: alive, breast cancer. S iblings: alive. C mathieu: alive, colon polyps- + cancer cells. 1 sister(s) . 2 daughter(s) - healthy. . Sister with hx of breast cancer, father with colon cancer, mother with skin breast and lung cancer. * Social History: S moking A re you a:: nonsmoker, Additional Findings: Tobacco Non-User: Current non-smoker. R ecreational drug use: no. Exercise: no. Home smoke detector use: yes. Caffeine: yes, 1 diet pepsi daily. Living Will: Yes. Alcohol: no. Sexually active: no. Travel outside [place]: no. Occupation: disabled. Divorce from her about 10 years ago-he has since . One child lives in [place], another daughter lives in [place]. Lives in [facility] apartment, has lots of problems with mobility issues, uses motorized wheelchair. * Medications: T aking Fluticasone Propionate 50 MCG/ACT Suspension 1 spray in each nostril Nasally Twice a day , Taking NIFEdipine 10 MG Capsule 1 capsule as needed Orally every 8 hrs , Taking Cholecalciferol 50 MCG (2000 UT) Capsule 1 capsule Orally Once a day , Taking Acetaminophen 500 MG Tablet 2 tab(s) orally every 6 hours , Taking Fiber Choice 1.5 GM Tablet Chewable 2 tab(s) chewed 2 times a day , Taking Mycophenolate Mofetil 500 MG Tablet 1 tab(s) orally 2 times a day , Taking Doxepin HCl 10 MG Capsule 2 TABS orally at bedtime as needed , Taking Hydroxychloroquine Sulfate 300 MG Tablet 1 tab(s) orally twice a day , Taking Xanax 0.25 MG Tablet 1 tab(s) orally daily , Taking NURTEC ODT 75 MG TABLET, DISINTEGRATING 1 TAB(S) ORALLY EVERY OTHER DAY , Notes to Pharmacist: *Please review for potential replacement for e-prescription and drug interaction check*, Taking Dicyclomine HCl 10 MG Capsule 1 cap(s) orally twice daily , Taking Imitrex 100 MG Tablet 1 tab(s) orally once at onset of migraine , Taking Sertraline HCl 25 MG Tablet 1 tab(s) orally once a day , Taking Mirtazapine 15 MG Tablet 1 tab(s) orally once a day , Taking busPIRone HCl 10 MG Tablet 1 tab(s) orally 2 times a day , Taking Levothyroxine Sodium 150 MCG Tablet 1 tab(s) orally once a day , Taking Sodium Bicarbonate 650 MG Tablet TAKE 2 TABLETS THREE TIMES DAILY , Discontinued Nystatin 594102 UNIT/GM Powder 1 truong applied topically 3 times a day , Discontinued PROBIOTIC FORMULA (BACILLUS COAGULANS) - CAPSULE 1 CAP(S) ORALLY ONCE A DAY , Notes to Pharmacist: *Please review for potential replacement for e-prescription and drug interaction check*, Discontinued Metamucil 525 MG CAPSULE 2 CAPS ORALLY TWICE A DAY , Notes to Pharmacist: *Please review and pick correct strength-formulation from [employer].mean options. If intended option is not shown, discontinue and re-order from Quick Search*, Discontinued Flonase Allergy Relief 50 MCG/ACT Suspension 2 sprays intranasally once a day , Notes to Pharmacist: prn, Discontinued Ondansetron 4 MG Tablet Disintegrating 1 tab(s) orally every 6 hours PRN , Discontinued Cefdinir 300 MG Capsule 1 cap(s) orally once a day , Discontinued Omeprazole 40 MG Capsule Delayed Release 1 cap(s) orally once a day , Medication List reviewed and reconciled with the patient * Allergies: L ATEX, Morphine, ANDREWS Inhibitors, IV DYES. Objective: * Vitals: N urse: dw, Pain: 0, Temp: 98.2, RR: 20, HR: 78, BP: 158/84, Ht: 61, Wt: 120, BMI:22.67. * Examination: G eneral Examination: General P leasant and Cooperative, NAD on RA, F rail,.? Oral cavity: M oist membranes. Chest: n ormal shape and expansion. Heart: R egular Rate and Rhythm, no murmur, rubs or gallops. HEENT: u nremarkable . Lungs: c lear to auscultation,. Abdomen: s oft, NT/ND, BS present. Neurologic Exam: A lert and oriented x 3, grasps equal, tongue midline, no facial droop, no arm drift, speech is clear. Skin: w ithout acute rashes. Peripheral pulses: n ormal (2+) bilaterally. Extremities: t race lower extremity edema, mildly kyphotic posture, LLE strength 3/5, LUE 3/5, RLE 4/5, RUE 4/5, gait is slow and cautious. neck s upple,, no thyromegaly,, no lymphadenopathy,. Psych N ormal Mood/Affect. Assessment: * Assessment: 1. E ncounter for Medicare annual wellness exam - Z00.00 (Primary) 2 . H ypothyroidism (acquired) - E03.9 3 . L upus nephritis - M32.14 4 .?Arthritis involving multiple sites - M12.9 5 . M oderate episode of recurrent major depressive disorder - F33.1 6 . G astroesophageal reflux disease without esophagitis - K21.9 7 . I rritable bowel syndrome with diarrhea - K58.0 ? 8 . B rain lesion - G93.9 9 . B NV 22.0-22.9, adult - Z68.22 1 0. W eakness - R53.1 1 1. S easonal allergies - J30.2 ? 1 2. G AD (generalized anxiety disorder) - F41.1 1 3. E ssential hypertension - I10 Plan: * Treatment: 2. H ypothyroidism (acquired) L AB: TSH W/REFLEX TO FT4 (44215) Value Reference Range T SH W/REFLEX TO FT4 0.11 L 0.40-4.50 - mIU/L * T 4, FREE 1.0 0.8-1.8 - ng/dL * Liliana Avalos 05/19/20 09:10:06 AM EDT > tsh a little low, decrease synthroid 137mcg po daily, otherwise labs at baseline TracyAndrewsangita Reyes 05/19/2025 10:10:35 AM EDT > lvm. rx sent Dustin Molina 05/19/2025 10:58:00 AM EDT > pt daughter notifiedThis lab was reviewed by Dustin Molina on 05/19/2025 at 10:59 AM EDT Notes: On synthroid. Will check tsh and treat as indicated??3.?Lupus nephritis?LAB: COMPREHENSIVE METABOLIC PANEL (17303)* Value Reference Range G LUCOSE 94 65-99 - mg/dL * U PRICILLA NITROGEN (BUN) 55 H 7-25 - mg/dL * C REATININE 3.55 H 0.60-1.00 - mg/dL * B UN/CREATININE RATIO 15 6-22 - (calc) * S ODIUM 139 135-146 - mmol/L * P OTASSIUM 5.3 3.5-5.3 - mmol/L * C HLORIDE 107 98-110 - mmol/L * C ARBON DIOXIDE 20 20-32 - mmol/L * C ALCIUM 8.7 8.6-10.4 - mg/dL * P ROTEIN, TOTAL 6.8 6.1-8.1 - g/dL * A LBUMIN 4.2 3.6-5.1 - g/dL * G LOBULIN 2.6 1.9-3.7 - g/dL (calc ) * A LBUMIN/GLOBULIN RATIO 1.6 1.0-2.5 - (calc) * B ILIRUBIN, TOTAL 0.3 0.2-1.2 - mg/dL * A LKALINE PHOSPHATASE 86 37-153 - U/L * A ST 12 10-35 - U/L * A LT 5 L 6-29 - U/L * E GFR 13 L > OR = 60 - mL/min/1 .73m2 * Liliana Avalos 05/19/20 09:10:06 AM EDT > tsh a little low, decrease synthroid 137mcg po daily, otherwise labs at baseline Dustin Molina Amy 05/19/2025 10:10:35 AM EDT > lvm. rx sent Dustin Molina Amy 05/19/2025 10:58:00 AM EDT > pt daughter notifiedThis lab was reviewed by Dustin Molina on 05/19/2025 at 10:59 AM EDT ?LAB: CBC (INCLUDES DIFF/PLT) (9646)* Value Reference Range W MIRTA BLOOD CELL COUNT 6.4 3.8-10.8 - Thousan d/uL * R ED BLOOD CELL COUNT 3.21 L 3.80-5.10 - Million/ uL * H EMOGLOBIN 8.7 L 11.7-15.5 - g/dL * H EMATOCRIT 28.7 L 35.0-45.0 - % * M CV 89.4 80.0-100.0 - fL * M CH 27.1 27.0-33.0 - pg * M CHC 30.3 L 32.0-36.0 - g/dL * R DW 14.9 11.0-15.0 - % * P LATELET COUNT 279 140-400 - Thousand/u L * N EUTROPHILS 74.4 - % * A BSOLUTE NEUTROPHILS 4762 2711-9217 - cells/uL * L YMPHOCYTES 16.3 - % * A BSOLUTE LYMPHOCYTES [phone] - cells/uL * M ONOCYTES 8.3 - % * A BSOLUTE MONOCYTES 531 200-950 - cells/uL * E OSINOPHILS 0.5 - % * A BSOLUTE EOSINOPHILS 32 15-500 - cells/uL * B ASOPHILS 0.5 - % * A BSOLUTE BASOPHILS 32 0-200 - cells/uL * M PV 9.7 7.5-12.5 - fL * Liliana Avalos 05/19/20 09:10:06 AM EDT > tsh a little low, decrease synthroid 137mcg po daily, otherwise labs at baseline Dustin Molina 05/19/2025 10:10:35 AM EDT > lvm. rx sent Dustin Molina 05/19/2025 10:58:00 AM EDT > pt daughter ginaThitriston lab was reviewed by Dustin Molina on 05/19/2025 at 10:59 AM EDT Notes: Following with rheumatology and nephrology. No recent changes. Previously followed by Hospice, remains palliative care??4.?Arthritis involving multiple sites? Notes: At baseline??5.?Moderate episode of recurrent major depressive disorder? Notes: Stable on SSRI. No changes made today??6.?Gastroesophageal reflux disease without esophagitis? Notes: Well controlled??7.?Irritable bowel syndrome with diarrhea? Notes: Stable at baseline on bentyl??8.?Brain lesion? Notes: Declines further imaging or FU at this time. Seen by neuro in the past.?? 9.?BMI 22.0-22.9, adult? Notes: BMI is acceptable??10.?Weakness? Notes: Patient is unable to safely ambulate at times within the home with a walker or a cane due topoor exercise tolerance and pain associated with lupus and OA. Needs WC for safe ambulation in and out of the home and for transport to appointments.? Referral To: ?Reason:wheelchair 11.?Seasonal allergies? Start Cetirizine HCl Tablet, 10 MG, 1 tablet, Orally, Once a day, 90 days, 90 Tablet, Refills 3. ? Notes: Reassurance, no acute infection. Supportive care discussed. Add antihistamine??12.?ANGE (generalized anxiety disorder)? Notes: Well controlled CSA updated and placed on chart Edmund report reviewed and is appropriate - discussed ongoing use of controlled medication and safety associated with these medications??13.?Essential hypertension? Notes: Blood pressure above goal in office today, patient has been at goal at all over appointment and on home log. No changes made today. Will continue to monitor?? * Procedure Codes: G 0439 ANNUAL WELLNESS VST; PPS SUBSQT VST, 1123F ADVANCED DIRECTIVE - HAS A LIVING WILL, G8420 BMI documented as normal, no follow up required., G9717 DOC PT HAS ACTIV DX DEPR/BIPOLR D/O, G9903 Pt scrn tbco id as non user, 1036F TOBACCO NON-USER, G9744 PATIENT NOT ELIG D/T ACTIVE DX HTN * Follow Up: 6 Months,prn * * Sign off status: Completed true * Provider: Phu Avalos APRN Date: 0 05/17/2025 Generated for Hayesi ng/Faxing/eTransmitting on: 0 06/17/2025 08:35 AM EDT History and Physical Notes * Examination Category Sub-Category Detail Notes Category Not es General Examination HEENT: unremarkable Heart: Regular Rate and Rhy thm, no murmur, rubs or gallops Lungs: clear to auscultatio n, Abdomen: soft, NT/ND, BS pres ent Extremities: trace lower extremit y edema, mildly kyphotic posture, LLE strength 3/5, LUE 3/5, RLE 4/5, RUE 4/5, gait is slow and cautious Skin: without acute rashes Neurologic Exam: Alert and oriented x 3, grasps equal, tongue midline, no facial droop, no arm drift, speech is clear Oral cavity: Moist membranes Peripheral pulses: normal (2+) bilatera lly Chest: normal shape and exp ansion neck supple,, no thyromeg tacos,, no lymphadenopathy, General Pleasant and Coopera tive, NAD on RA, Frail, Psych Normal Mood/Affect Consultation Request Notes Referral Date Referring Provider Referred Provider Not es 05/18/2025 Liliana Avalos , wheelchair
--- OUTSIDE RECORDS SUMMARY | 2025-06-17 08:34 | XMS_ITS ---
Author Name Auto Generated, Auto Generated Organization [facility] at[facility] Address [address] [place] [address] Phone [phone] Care Team Providers Care Burlap Bag Sewer Name Role Phone Duran Cabrera Unavailable [phone] Cong Liliana sanchez Unavailable WhReinier ramachandran Unavailable [phone] Winston Webster Unavailable Functional Status No Results Mental Status No Results Allergies and Intolerances Name Onset Date Reaction Severity Latex (Allergy) Yolanda Mar 07 17:08:00 EDT 2022 ANDREWS Inhibitors (Allergy) Yolanda Mar 07 17:08:00 EDT 2022 morphine (Allergy) Yolanda Mar 07 17:08:00 EDT 2022 Halluc inations Moderate Medications Medication Directions Start Date End Date levothyroxine 112 mcg tablet 1 tablet TA BLET Oral Every 1 Day Indication: thyroid SatOct 04 00:00:00 EDT 2022Nov 01 00:00:00 EST 2022 sertraline 25 mg tablet 1 tablet TABLET Oral Every 1 Day Indication: mental health, depression, obsession SatOct 04 00:00:00 EDT 2022Nov 01 00:00:00 EST 2022 cefdinir 300 mg capsule 1 capsule CAPSUL E Oral Every 1 Day for 10 Days Indication: UTI SatOct 04 00:00:00 EDT 2022Oct 13 23:59:00 EST 2022 Xanax 0.25 mg tablet 2 tablet TABLET Ora l PRN 3 Times Daily Indication: anxiety SatAug 28 00:00:00 EDT 2022Aug 28 16:18:00 EDT 2022 senna 8.6 mg tablet 1-2 tabs TABLET Oral Every 1 Day Indication: stool softener SatAug 28 00:00:00 EDT 2022 Yolanda Aug 28 14:54:00 EDT 2022 Xanax 0.25 mg tablet 2 tabs TABLET Oral PRN Every 6 Hours Indication: anxiety SatAug 28 00:00:00 EDT 2022Nov 01 00:00:00 EST 2022 Xanax 0.25 mg tablet 1 tablet TABLET Ora l PRN 3 Times Daily Indication: anxiety SatAug 14 00:00:00 EDT 2022Aug 28 16:18:00 EDT 2022 cefdinir 300 mg capsule 1 capsule CAPSUL E Oral Every 1 Day for 10 Days Indication: UTI SatJun 26 00:00:00 EDT 2022Jul 05 23:59:00 EDT 2022 Levaquin 500 mg tablet 1 tab TABLET Oral Every 2 Days for 10 Days Indication: UTI. SatJun 14 00:00:00 EDT 2022Jun 23 23:59:00 EDT 2022 Oxygen 2-4 liters Intranasa l - Both Nostrils PRN Indication: soa SatJun 12 00:00:00 EDT 2022Nov 01 00:00:00 EST 2022 Tylenol-Codeine #4 300 mg-60 mg tablet 1 tablet TABLET Oral PRN Every 6 Hours Indication: pain SatMay 29 00:00:00 EDT 2022Nov 01 00:00:00 EST 2022 Zofran 4 mg tablet 1 tablet TABLET Oral PRN Every 6 Hours Indication: n/v SatMay 29 00:00:00 EDT 2022Nov 01 00:00:00 EST 2022 dicyclomine 10 mg capsule 1 capsule CAPS ULE Oral 2 Times Daily Indication: IBS SatMay 23 00:00:00 EDT 2022Nov 01 00:00:00 EST 2022 loperamide 2 mg tablet 1 tablet TABLET O ral PRN Indication: take after each loose stool SatMay 02 00:00:00 EDT 2022Nov 01 00:00:00 EST 2022 Levaquin 250 mg tablet 1 tablet TABLET O ral Every 2 Days for 10 Days Indication: UTI. Take 250mg every 48 hrs x4 doses SatMar 22 00:00:00 EDT 2022Mar 31 23:59:00 EDT 2022 Xanax 0.25 mg tablet 1 tablet TABLET Ora l PRN 2 Times Daily Indication: anxiety Yolanda Mar 21 00:00:00 EDT 2022 13 10:29:00 EDT 2022 acetaminophen 500 mg tablet 1 tablet TAB LET Oral PRN 3 Times Daily Indication: mild pain Yolanda Mar 21 00:00:00 EDT 2022Nov 01 00:00:00 EST 2022 nystatin 100,000 unit/gram topical powder 1 application POWDER (GRAM) Topical PRN 3 Times Daily Indication: redness SatMar 13 00:00:00 EDT 2022Nov 01 00:00:00 EST 2022 doxepin 10 mg capsule 3 caps CAPSULE Ora l Hour Of Sleep Indication: nerve pain SatMar 07 00:00:00 EDT 2022Nov 01 00:00:00 EST 2022 busPIRone 10 mg tablet 1 tab TABLET Oral 2 Times Daily Indication: anxiety SatMar 07 00:00:00 EDT 2022Nov 01 00:00:00 EST 2022 omeprazole 40 mg capsule,delayed release 1 cap CAPSULE,DELAYED RELEASE (ENTERIC COATED) Oral Every 1 Day Indication: GERD SatMar 07 00:00:00 EDT 2022Nov 01 00:00:00 EST 2022 hydrOXYchloroQUINE 200 mg tablet 1 tab TABLET Oral 2 Times Daily Indication: lupus SatMar 07 00:00:00 EDT 2022Nov 01 00:00:00 EST 2022 levothyroxine 125 mcg tablet 1 tab TABLE T Oral Every 1 Day Indication: hypothyroid SatMar 07 00:00:00 EDT 2022Oct 04 12:36:00 EDT 2022 isosorbide dinitrate 10 mg tablet 1 tab TABLET Oral 3 Times Daily Indication: HTN SatMar 07 00:00:00 EDT 2022Nov 01 00:00:00 EST 2022 mirtazapine 15 mg tablet 1 tab TABLET Or al Hour Of Sleep Indication: depression SatMar 07 00:00:00 EDT 2022Nov 01 00:00:00 EST 2022 mycophenolate mofetiL 500 mg tablet 1 tab TABLET Oral 2 Times Daily Indication: lupus nephritis SatMar 07 00:00:00 EDT 2022Nov 01 00:00:00 EST 2022 sodium bicarbonate 650 mg tablet 2 tabs TABLET Oral 3 Times Daily Indication: ckd stage 4 SatMar 07 00:00:00 EDT 2022Nov 01:00:00 EST 2022 Treatment Plan Problems No Known Problems Reason for Referral
--- OUTSIDE RECORDS SUMMARY | 2025-06-17 08:34 | XMS_ITS ---
Author Name Auto Generated, Auto Generated Organization [facility] Address [address] [place] [address] Phone [phone] Care Team Providers Care Credit Portfolio Manager Name Role Phone Duran Cabrera Unavailable [phone] Cong Liliana sanchez Unavailable [phone] WhReinier ramachandran Unavailable [phone] Winston Webster Unavailable Functional Status No [...]
--- OUTSIDE RECORDS SUMMARY | 2025-06-17 08:35 | XMS_ITS | Encounter Summary ---
Author Organization [facility] Address [address] [place] [address] Care Team Providers Care Unbundler Name Role Phone Liliana Gar YURIY Primary Care Provider [phone] Reason for Referral * Consultation (Routine) - Closed Specialty Diagnoses / Procedures Referred By Gaby presley Referred To Contact Neurosurgery Diagnoses Brain mass Emilee Tejeda MD [address] [facility] [address] [place] [address] Phone: tel: fax: Referral ID Status Reason Start Date Expiration Date V isits Requested Visits Authorized [id number] Closed Specialty Services Required 02/26/2025 08/28/2026 1 1 Encounter Details Date Type Department Care Team (Late st Contact Info) Description 02/26/2025 [facility] [address] [place] [address] Emilee Tejead MD [address] [place] [address] [facility] [address] [place] [address] Brain mass (Primary Dx) Social History Tobacco Use Types Packs/Day Years Used Date Smoking Tobacco: Never Passive Smoke Exposure: Never Smokeless Tobacco: Never Alcohol Use Standard Drinks/Week Comments No 0 (1 standard drink = 0.6 oz pure alcohol) Alcoholic Drinks/day: Never Drank Alcohol PHQ-2 Answer Date Recorded Patient Health Questionnaire-2 Score 1 01/11/2025 PHQ-2A Answer Date Recorded Patient Health Questionnaire-2 Score 1 12/04/2022 Comments Unknown Sex and Gender Information Value Date Recorded Sex Assigned at Not on file Legal Sex Female 7:36 PM EDT Gender Identity Not on file Sexual Orientation Not on file documented as of this encounter Plan of Treatment Upcoming Encounters Date Type Department Care Team (Late st Contact Info) Description 09/06/2025 9:45 AM EDT Office Visit [facility] [address], [address] [place] [address] Yareli Puga DO [address] [place] [address] 09/13/2025 2:20 PM EDT Office Visit [facility] Nephrology, Bone & Mineral Metabolism [address] [facility] [facility], [address] [place] [address] 10/22/2025 10:45 AM EST Appointment [facility] [address], 1st [place] [address] 10/22/2025 12:15 PM EST Office Visit [facility] [address], [address]st [place] [address] Yan Rowland MD [address] [place] [address] Scheduled Referrals Name Type Priority Associated Diagnoses Order Schedule Ambulatory Referral to Neurosurgery Outpatient Referral Routine Brain mass Expected: 02/26/2025 (Approximate), Expires: 08/29/2026 documented as of this encounter Visit Diagnoses Diagnosis Brain mass- Primary Unspecified condition of brain documented in this encounter Additional Health Concerns Assessment Noted Time A fall risk assessment has been complete d for the patient 01/11/2025 2:35 PM EST A Body Mass Index follow-up plan has been documented for the patient 01/12/2025 3:41 PM EST documented as of this encounter Care Teams Unbundler Relationship Specialty Start Date End Date Liliana Gar, YURIY [address] [place] [facility] [address] [place] [address] PCP - General 02/23/25 documented as of this encounter
--- OUTSIDE RECORDS SUMMARY | 2025-06-17 08:35 | XMS_ITS | Encounter Summary ---
Author Organization [facility] Address [address] [place] [address] Care Team Providers Care Mechanical Handyman Name Role Phone Winston Webster MD Primary Care Provider [phone] Liliana Gar APRN Primary Care Provider [phone] Encounter Details Date Type Department Care Team (Late st Contact Info) Description 06/12/2024 Orders Only External Location [address] [place] [address] Provider, External Social History Tobacco Use Types Packs/Day Years Used Date Smoking Tobacco: Never Passive Smoke Exposure: Never Smokeless Tobacco: Never Alcohol Use Standard Drinks/Week Comments No 0 (1 standard drink = 0.6 oz pure alcohol) Alcoholic Drinks/day: Never Drank Alcohol PHQ-2 Answer Date Recorded Patient Health Questionnaire-2 Score 1 04/17/2024 PHQ-2A Answer Date Recorded Patient Health Questionnaire-2 [...] Description 09/06/2025 9:45 AM EDT Office Visit [facility] [address] [place] [address] Yareli Puga, [address] [place] [address] 09/13/2025 2:20 PM EDT Office Visit [facility] [place] Nephrology, Bone & Mineral Metabolism [address] [facility] [address], [address] [place] [address] 10/22/2025 10:45 AM EST Appointment [facility] [address], [address] [place] [address] 10/22/2025 12:15 PM EST Office Visit [place] [facility] [address], [address] [place] [address] Yan Rowland MD [address] [place] [address] documented as of this encounter Procedures Procedure Name Priority Date/Time Associated Diagnosis Comments MR NEURO OUTSIDE IMAGES 06/12/2024 4:55 PM EDT documented in this encounter Results * MR NEURO OUTSIDE IMAGES (06/12/2024 4:55 PM EDT) Anatomical Region Laterality Modality Magnetic Resonan ce 06/12/2024 4:55 PM EDT us External Provider IMG MRI PROCEDURES Final Resul t documented in this encounter Visit Diagnoses Not on filedocumented in this encounter Additional Health Concerns Assessment Noted Time A fall risk assessment has been complete d for the patient 04/17/2024 11:18 AM EDT A Body Mass Index follow-up plan has been documented for the patient 04/17/2024 11:40 AM EDT documented as of this encounter Care Teams Mechanical Handyman Relationship Specialty Start Date End Date Winston Webster MD [address] [place] [address] PCP - General 04/14/21 02/22/25 Liliana Gar, YURIY [address] [place] [address] PCP - General 02/23/25 documented as of this encounter
--- OUTSIDE RECORDS SUMMARY | 2025-06-17 08:35 | XMS_ITS | Encounter Summary ---
Author Organization [facility] Address [address] [place] [address] Care Team Providers Care Anode Builder Name Role Phone Liliana Gar YURIY Primary Care Provider [phone] Encounter Details Date Type Department Care Team (Latest Contact Info) Description 05/06/2025 Travel Social History Tobacco Use Types Packs/Day Years [...] on file documented as of this encounter Functional Status * Over the [...] Annmarie Claire documented as of this encounter Plan of Treatment Upcoming Encounters Date Type Department Care Team (Late st Contact Info) Description 09/06/2025 9:45 AM EDT Office Visit [facility] Medicine Specialties [address] [place] [address] Yareli Puga DO [address] [place] [address] 09/13/2025 2:20 PM EDT Office Visit [facility] Nephrology, Bone & Mineral Metabolism [address] [facility], [address] [place] [address] 10/22/2025 10:45 AM EST Appointment [facility] [address], 1st [place] [address] 10/22/2025 12:15 PM EST Office Visit [facility] [address] [place] [address] Yan Rowland MD [address] [place] [address] documented as of this encounter Visit Diagnoses Not on filedocumented in this encounter Additional Health Concerns Assessment Noted Time A fall risk assessment has been complete d for the patient 05/06/2025 10:53 AM EDT A Body Mass Index follow-up plan has been documented for the patient 05/06/2025 11:10 AM EDT documented as of this encounter Care Teams Anode Builder Relationship Specialty Start Date End Date Liliana Gar APRN [address] [facility] [address] [place] [address] PCP - General 02/23/25 documented as of this encounter
--- OUTSIDE RECORDS SUMMARY | 2025-06-17 08:35 | XMS_ITS | Encounter Summary ---
Author Organization [facility] Address [address] [place] [address] Care Team Providers Care Thread Tool Grinder Set Up Operator Name Role Phone Liliana Gar YURIY Primary Care Provider [phone] Reason for Visit * Reason Comments Med Refill Encounter Details Date Type Department Care Team ([facility] st Contact Info) Description 06/10/2025 Refill [facility] Nephrology, Bone & Mineral Metabolism [address] [facility], [address] [place] [address] Lena Leon MD [address] [id number] Social History Tobacco Use Types Packs/Day Years [...] Description 09/06/2025 9:45 AM EDT Office Visit [facility] [address] [place] [address] EddYareli [address] [place] [address] 09/13/2025 2:20 PM EDT Office Visit [facility] Nephrology, Bone & Mineral Metabolism [address], [address] [place] [address] 10/22/2025 10:45 AM EST Appointment [facility] [address], 1st [place] [address] 10/22/2025 12:15 PM EST Office Visit [facility] [address], [address] [place] [address] Yan Rowland MD [address] [place] [address] documented as of this encounter Visit Diagnoses Not on filedocumented in this encounter Additional Health Concerns Assessment Noted Time A fall risk assessment has been complete d for the patient 05/10/2025 10:48 AM EDT A Body Mass Index follow-up plan has been documented for the patient 05/06/2025 11:10 AM EDT documented as of this encounter Care Teams Thread Tool Grinder Set Up Operator Relationship Specialty Start Date End Date Liliana Gar APRN [address] [facility] [place] [address] [place] [address] PCP - General 02/23/25 documented as of this encounter
--- OUTSIDE RECORDS SUMMARY | 2025-06-17 08:35 | XMS_ITS | Encounter Summary ---
Author Organization [facility] Address [address] [place] [address] Care Team Providers Care Antenna Engineer Name Role Phone Winston Webster MD Primary Care Provider [phone] Liliana Gar APRN Primary Care Provider [phone] Encounter Details Date Type Department Care Team (Late st Contact Info) Description 06/12/2024 Orders Only External Location [address] [place] [address] Provider, External Social History Tobacco Use Types [...] Description 09/06/2025 9:45 AM EDT Office Visit [facility] [address], [address] [place] [address] Yareli Puga, [address] [place] [address] 09/13/2025 2:20 PM EDT Office Visit [facility] Nephrology, Bone & Mineral Metabolism [address] [facility], [address] [place] [address] 10/22/2025 10:45 AM EST Appointment [facility] [address], 1st [place] [address] 10/22/2025 12:15 PM EST Office Visit [place] [facility] [address] [place] [address] Yan Rowland MD [address] [place] [address] documented as of this encounter Procedures Procedure Name Priority Date/Time Associated Diagnosis Comments US OUTSIDE IMAGES 06/12/2024 3:42 PM EDT documented in this encounter Results * US OUTSIDE IMAGES (06/12/2024 3:42 PM EDT) Anatomical Region Laterality Modality Ultrasound 06/12/2024 3:42 PM EDT us External Provider IMG US PROCEDURES Final Result documented in this encounter Visit Diagnoses Not on filedocumented in this encounter Additional Health Concerns Assessment Noted Time A fall risk assessment has been complete d for the patient 04/17/2024 11:18 AM EDT A Body Mass Index follow-up plan has been documented for the patient 04/17/2024 11:40 AM EDT documented as of this encounter Care Teams Antenna Engineer Relationship Specialty Start Date End Date Winston Webster MD [address] [place] [address] PCP - General 04/14/21 02/22/25 Liliana Gar, YURIY [address] [place] [address] PCP - General 02/23/25 documented as of this encounter
--- OUTSIDE RECORDS SUMMARY | 2025-06-17 08:35 | XMS_ITS | Encounter Summary ---
Author Organization [facility] Address [address] [place] [address] Care Team Providers Care Oyster Preparer Name Role Phone Liliana Gar YURIY Primary Care Provider [phone] Reason for Visit * Reason Comments Med Refill Encounter Details Date Type Department Care Team (Late st Contact Info) Description 05/16/2025 Refill [facility] [address] [place] [address] Dave Moran MD [address] [place] [address] Systemic lupus erythematosus, organ or system involvement unspecified (CMS/HCC) (Primary Dx) Social History Tobacco Use Types [...] Frequency of Binge Drinking Not on file 0604/2025 PHQ-2A Answer Date Recorded Patient Health Questionnaire-2 Score 1 12/04/2022 Comments Unknown Sex and Gender Information Value Date Recorded Sex Assigned at Not on file Legal Sex Female 7:36 PM EDT Gender Identity Not on file Sexual Orientation Not on file documented as of this encounter Miscellaneous Notes * Telephone Encounter - Claudy Cramer PharmD - 05/17/2025 7:27 AM EDT 1 medication(s) has been approved per protocol. documented in this encounter Plan of Treatment Upcoming Encounters Date Type Department Care Team (Late st Contact Info) Description 09/06/2025 9:45 AM EDT Office Visit [facility] Medicine Specialties [address], [address] [place] [address] Yareli Puga DO [address] [place] [address] 09/13/2025 2:20 PM EDT Office Visit [facility] [place] Nephrology, Bone & Mineral Metabolism [address] [facility], [address] [place] [address] 10/22/2025 10:45 AM EST Appointment [facility] [address], 1st [place] [address] 10/22/2025 12:15 PM EST Office Visit [facility] [address], [address] [place] [address] Yan Rowland MD [address] [place] [address] documented as of this encounter Visit Diagnoses Diagnosis Systemic lupus erythematosus, organ or system involvement unspecified (CMS/HCC)- Primary documented in this encounter Additional Health Concerns Assessment Noted Time A fall risk assessment has been complete d for the patient 05/10/2025 10:48 AM EDT A Body Mass Index follow-up plan has been documented for the patient 05/06/2025 11:10 AM EDT documented as of this encounter Care Teams Oyster Preparer Relationship Specialty Start Date End Date Liliana Gar, YURIY [address] [facility] [address] [place] [address] PCP - General 02/23/25 documented as of this encounter
--- OUTSIDE RECORDS SUMMARY | 2025-06-17 08:35 | XMS_ITS | Encounter Summary ---
Author Organization [facility] Address [address] [place] [address] Care Team Providers Care Corrective And Manual Arts Therapist Name Role Phone Winston Webster MD Primary Care Provider [phone] Liliana Gar APRN Primary Care Provider [phone] Reason for Visit * Reason Comments Med Refill Encounter Details Date Type Department Care Team (Late Contact Info) Description 05/04/2022 Refill [facility] [address] [place] [address] Enmanuel Castillo MD [address] [address] Social History Tobacco Use Types Packs/Day Years Used Date Smoking Tobacco: Never Smokeless Tobacco: Never Alcohol Use Standard Drinks/Week Comments No 0 (1 standard drink = 0.6 oz pure alcohol) Alcoholic Drinks/day: Never Drank Alcohol PHQ-2 Answer Date Recorded Patient Health Questionnaire-2 Score 1 11/28/2021 Comments Unknown Sex and Gender Information Value Date Recorded Sex Assigned at Not on file Legal Sex Female 7:36 PM EDT Gender Identity Not on file Sexual Orientation Not on file documented as of this encounter Plan of Treatment Upcoming Encounters Date Type Department Care Team (Late Contact Info) Description 09/06/2025 9:45 AM EDT Office Visit [facility] [address] [place] [address] Yareli Puga, [address] [place] [address] 09/13/2025 2:20 PM EDT Office Visit [facility] Nephrology, Bone & Mineral Metabolism [address] [facility], [address] [place] [address] 10/22/2025 10:45 AM EST Appointment [facility] [address], 1st [place] [address] 10/22/2025 12:15 PM EST Office Visit [place] [facility] [address], 1st [place] [address] Yan Rowland MD [address] [place] [address] documented as of this encounter Visit Diagnoses Not on filedocumented in this encounter Additional Health Concerns Assessment Noted Time A fall risk assessment has been complete d for the patient 11/28/2021 1:17 PM EST documented as of this encounter Care Teams Corrective And Manual Arts Therapist Relationship Specialty Start Date End Date Winston Webster MD [address] [place] [address] PCP - General 04/14/21 02/22/25 Liliana Gar, YURIY [address] [place] [address] PCP - General 02/23/25 documented as of this encounter
--- OUTSIDE RECORDS SUMMARY | 2025-06-17 08:35 | XMS_ITS | Encounter Summary ---
Author Organization [facility] Address [address] [place] [address] Care Team Providers Care Cargo Services Coordinator Name Role Phone Liliana Gar YURIY Primary Care Provider [phone] Encounter Details Date Type Department Care Team (Latest Contact Info) Description 04/29/2025 Travel Social History Tobacco Use Types Packs/Day [...] Description 09/06/2025 9:45 AM EDT Office Visit [place] [facility] [address] [place] [address] Yareli Puga DO [address] [place] [address] 09/13/2025 2:20 PM EDT Office Visit [facility] Nephrology, Bone & Mineral Metabolism [address] [facility], [address] [place] [address] 10/22/2025 10:45 AM EST Appointment [facility] [address], [address] [place] [address] 10/22/2025 12:15 PM EST Office Visit [place] [facility] [address] [place] [address] Yan Rowland MD [address] [place] [address] documented as of this encounter Visit Diagnoses Not on filedocumented in this encounter Additional Health Concerns Assessment Noted Time A fall risk assessment has been complete d for the patient 04/09/2025 11:33 AM EDT A Body Mass Index follow-up plan has been documented for the patient 04/12/2025 6:41 PM EDT documented as of this encounter Care Teams Cargo Services Coordinator Relationship Specialty Start Date End Date Liliana Gar, YURIY [address] [facility] [address] [place] [address] PCP - General 02/23/25 documented as of this encounter
--- OUTSIDE RECORDS SUMMARY | 2025-06-17 08:35 | XMS_ITS | Encounter Summary ---
Author Organization [facility] Address [address] [place] [address] Care Team Providers Care Greenstone Polisher Operator Name Role Phone Liliana Gar YURIY Primary Care Provider Encounter Details Date Type Department Care Team ([facility] st Contact Info) Description 05/06/2025 Telephone [facility] [address], [address] [place] [address] Kymberly Champion, TOBACCO GROWER GS - 7 MAIN MEDICAL-SURGICAL Social History Tobacco Use Types Packs/Day Years [...] encounter Miscellaneous Notes * Telephone Encounter - Kymberly Champion - 05/06/2025 10:54 AM EDT 05/06/25 called pt left Vm documented in this encounter Plan of Treatment Upcoming Encounters Date Type Department Care Team (Late st Contact Info) Description 09/06/2025 9:45 AM EDT Office Visit [facility] Medicine Specialties [address] [place] [address] Yareli Puga DO [address] [place] [address] 09/13/2025 2:20 PM EDT Office Visit [facility] Nephrology, Bone & Mineral Metabolism [address], [address] [place] [address] 10/22/2025 10:45 AM EST Appointment [facility] Radiology [address] [place] [address] 10/22/2025 12:15 PM EST Office Visit [facility] [address] [place] [address] Yan Rowland MD [address] [place] [address] documented as of this encounter Visit Diagnoses Not on filedocumented in this encounter Additional Health Concerns Assessment Noted Time A fall risk assessment has been complete d for the patient 05/06/2025 10:53 AM EDT A Body Mass Index follow-up plan has been documented for the patient 05/06/2025 11:10 AM EDT documented as of this encounter Care Teams Greenstone Polisher Operator Relationship Specialty Start Date End Date Liliana Gar, YURIY [address] [place] [address] PCP - General 02/23/25 documented as of this encounter
--- OUTSIDE RECORDS SUMMARY | 2025-06-17 08:35 | XMS_ITS | Patient Health Record ---
Author Organization [facility] D GINNY Address [address] [place] [address] Care Team Providers Care Therapist Asst Name Role Phone Winston Webster Primary Care Provider McLiliana Broussard Unavailable [phone] Migration, Provider Unavailable Unavailable Allergies Allergen (clinical drug ingredient) Drug/Non Drug Allergy documented on EMR Reaction Allergy Type Onset Date Status IV DYES (uncoded) Unknown Allergy Ac tive Latex LATEX (uncoded) Unknown Allergy Acti ve angiotensin-converting enzyme inhibitor (FN) ANDREWS Inhibitors Unknown Drug Allergy Acti ve morphine Morphine Unknown Drug Allergy Active Results Component Value Reference Range Notes CULTURE, URINE, ROUTINE (395 ) Reviewed date:06/29/2024 10:57:36 AM Interpretation: Performing Lab:JOS[facility] LUIS, [facility] [address] [facility], United HospitalEfqcTS[address] Olivier Albert Notes/Report: NON-FASTING CULTURE, URINE, ROUTINE SEE NOTE INT ANDREE AMPICILLIN S <=2 NITROFURANTOIN S <=16 CULTURE, URINE, ROUTINE Micro Number: [id number] Test Status: Final Specimen Source: Urine, clean catch Specimen Quality: Adequate Result: Greater than 100,000 CFU/mL of Enterococcus faecalis VANCOMYCIN S 1 S=Susceptible I=Intermediate R=Resistant * = Not Tested NR = Not Reported NN = See Therapy Comments E.faecalis Urinalysis Reviewed date:06/26/2024 03:03:07 PM Interpretation: Performing Lab: Notes/Report: Color/Clarity cloudy yellow Leuk moderate Nitrite neg Urobili 0.2 Protein 100mg pH 7.0 Blood moderate Sp. Gr. 1.020 Ketone neg Bili neg Glucose NEG TSH W/REFLEX TO FT4 (38591) Reviewed date:05/19/2025 10:59:23 AM Interpretation: Performing Lab:CB, [facility] [id number], [place] SvvaFC[address] Olivier Albert Notes/Report: NON-FASTING; NON-FASTING; NON-FASTING NON-FASTING; NON-FASTING; NON-FASTING TSH W/REFLEX TO FT4 0.11 0.40-4.50 mIU/L T4, FREE 1.0 0.8-1.8 ng/dL MRA BRAIN WO Reviewed date:07/04/2024 04:50:03 PM Interpretation: Performing Lab: Notes/Report: [address] [place] [address] Name: CHACHA WEBER Exam Date: 07/03/2024 : 1950 Age 74 years Gender: F Physician: LILIANA MORAES Facility: [facility] Facility HSV: Outpatient Exam: MRA BRAIN WO MRA CEREBRAL WITHOUT CONTRAST INDICATION: brain lesion. COMPARISON: None. TECHNIQUE: A routine 3D [id number]-jd-[id number] MRA study of the campo of Gomez was performed. 3D MIP and MPR images were provided and reviewed concurrently. FINDINGS: There is flow related enhancement throughout the anterior and posterior circulation. No flow-limiting stenosis or occlusion. No aneurysm or vascular malformation identified. IMPRESSION: 1. No large vessel occlusion or flow-limiting stenosis. Electronically signed by: João Toussaint MD 07/04/2024 03:59 PM EDT Dictated By: João Toussaint Transcribed By: Transcribed On: 07/03/2024 1:35 PM Electronically signed by: João Toussaint 07/03/2024 Thank you for referring CHACHA WEBER to [facility]. Legally authenticated by JSOIAH VALDZE MD 2024-07-03 13:35:18 COMPREHENSIVE METABOLIC PANE L ([id number]) Reviewed date:05/19/2025 10:59:23 AM Interpretation: Performing Lab:JOSÉ LUIS [facility] [id number] [facility], United HospitalLjapJR[address] Olivier Albert Notes/Report: NON-FASTING; NON-FASTING; NON-FASTING GLUCOSE [...] 9) Reviewed date:05/19/2025 10:59:23 AM Interpretation: Performing Lab:[facility], United HospitalCymcVZ[address] Olivier Albert Notes/Report: NON-FASTING; NON-FASTING; NON-FASTING WHITE [...] MPV 9.7 7.5-12.5 fL ABSOLUTE NEUTROPHILS 4762 [phone] cells/uL ABSOLUTE LYMPHOCYTES [phone] cells/uL ABSOLUTE MONOCYTES 531 200-950 cells/uL ABSOLUTE EOSINOPHILS 32 15-500 cells/uL ABSOLUTE BASOPHILS 32 0-200 cells/uL NEUTROPHILS 74.4 LYMPHOCYTES 16.3 MONOCYTES 8.3 EOSINOPHILS 0.5 BASOPHILS 0.5 Reason For Referral Reason [facility] tion 06/22/24 at 2:40 Dr. Dave Galicia at Nephrology Bone and Mineral Metabolism Referral Organization [facility] SHELLEY GROSS Referring Provider First Name Winston Referring Provider Last Name Darin Referring Provider Speciality Internal M edicine General Notes Amanda Rae 2023 02:38:53 PM >sent Referral Priority Routine Reason MRA head, Neurosurge ry at [facility] Diagnosis 1 Brain lesion (G93.9) Referral Organization [facility] AL[facility]ERT Referring Provider First Name Liliana Referring Provider Last Name Robbie Referring Provider Speciality Family [facility] ctice General Notes Naresh Varela 09:58:07 AM > faxed and they will call her Referral Priority Urgent Referral Appointment Date 07/03/2024 Reason Neurology - Dr. Key altamirano Call Daughter to Schedule appt/ Kellee [phone] Diagnosis 1 Brain lesion (G93.9) Referral Organization [facility] Referring Provider First Name Liliana Referring Provider Last Name Robbie Referring Provider Speciality Family Pra ctice Referred Organization [facility] Referred Address [address],[address], Referred Provider Specialty Neurology General Notes Amanda Rae 2023 03:11:02 PM >Referral sent to Dr. 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) Diagnosis 4 Chronic kidney disea se, stage 4 (severe) (N18.4) Diagnosis 5 Lupus erythematosus (L93.0) Referral Organization [facility] Referring Provider First Name Liliana Referring Provider Last Name Robbie Referring Provider Speciality Family Pra ctice Referral Priority Routine Reason Needs [facility] Pet[employer] sportation scheduled for Rheumatology [address] Referral Organization [facility] SHELLEY GINNY Referring Provider First Name Winston Referring Provider Last Name Darin Referring Provider Speciality Internal M edicine Referred Provider Specialty Transportati on General Notes Amanda Rae 2024 10:40:55 AM >waiting on form Referral Priority Routine Referral Appointment Date 05/06/2025 Reason wheelchair Diagnosis 1 Weakness (R53.1) Referral Organization [facility] SHELLEY PRICE Referring Provider First Name Liliana Referring Provider Last Name Robbie Referring Provider Speciality Family Pra ctice Referred Provider Specialty DME General Notes Amanda Rae 2024 01:00:49 PM >Has [employer] HMO can't do Romy- sent to [facility] Referral Priority Routine Medications Medication SIG (Take, Route, Frequency, Duration) Notes Start Date End Date Status Acetaminophen 500 MG 2 tab(s) orally every 6 hours Active busPIRone HCl 10 MG 1 tab(s) orally 2 times a day; Duration: 90 days Active Cholecalciferol 50 MCG (2000 UT) 1 capsule Orally Once a day Active Mirtazapine 15 MG 1 tab(s) orally once a day; Duration: 90 days Active NIFEdipine 10 MG 1 capsule as needed Orally every 8 hrs Active Fluticasone Propionate 50 MCG/ACT 1 spray in each nostril Nasally Twice a day Active Imitrex 100 MG 1 tab(s) orally once at onset of migraine; Duration: 90 days Active Dicyclomine HCl 10 MG 1 cap(s) orally twice daily; Duration: 90 days Active NURTEC ODT 75 MG 1 TAB(S) ORALLY EVERY OTHER DAY; Duration: 30 DAYS *Please review for potential replacement for e-prescription and drug interaction check* Active Sertraline HCl 25 MG 1 tab(s) orally once a day; Duration: 90 days Active Levothyroxine Sodium 137 MCG 1 tablet in the morning on an empty stomach Orally Once a day; Duration: 30 days 05/19/2025 Active Cetirizine HCl 10 MG 1 tablet Orally Once a day; Duration: 90 days 05/18/2025 Active Xanax 0.25 MG 1 tab(s) orally daily; Duration: 30 days 05/17/2025 Active Hydroxychloroquine Sulfate 300 MG 1 tab(s) orally twice a day; Duration: 30 days Active Doxepin HCl 10 MG 2 TABS orally at bedtime as needed Active Mycophenolate Mofetil 500 MG 1 tab(s) orally 2 times a day Active Sodium Bicarbonate 650 MG TAKE 2 TABLETS THREE TIMES DAILY; Duration: 90 days Active Fiber Choice 1.5 GM 2 tab(s) chewed 2 times a day Active Immunizations Vaccine Route Administration Date Status Comme [facility] Prevnar PCV-13 (Pneumococcal conjugate 13) IM Intramuscular 08/23/2016 Administered Pneumovax 23 IM Intramuscular 11/17/2019 Administered Influenza (Fluzone)--Medicare only IM Intramuscular 09/20/2015 Administered Influenza (Fluzone)--Medicare only IM Intramuscular 08/23/2016 Administered Influenza (Fluzone)--Medicare only IM Intramuscular 08/13/2017 Administered Fluzone High Dose IM Intramuscular 07/22/2018 Administered Fluzone High Dose IM Intramuscular 08/18/2019 Administered Fluzone High Dose IM Intramuscular 09/06/2020 Administered Fluzone High Dose IM Intramuscular 09/19/2021 Administered Fluzone High Dose IM Intramuscular 09/04/2022 Administered Fluzone High Dose IM Intramuscular 10/04/2023 Administered Covid Moderna Unknown 01/26/2021 Administered Covid Moderna Unknown 02/23/2021 Administered Problems Problem Type SNOMED Code ICD Code Onset Dates Problem Status W/U Status Risk Notes Problem Hypocalcemia (2493542) Hypocalcemia (E83.51) Active confirmed Problem Psychophysiologic insomnia (071802290) Psychophysiologic insomnia (F51.04) Active confirmed Problem Chronic pain (45033342) Other chronic pain (G89.29) Active confirmed Problem 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) Active confirmed Problem Irritable bowel syndrome with diarrhea (565583094) Irritable bowel syndrome with diarrhea (K58.0) Active confirmed Problem 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) Active confirmed Problem Osteoporosis (46951838) Other osteoporosis without current pathological fracture (M81.8) Active confirmed Problem Chronic kidney disease stage 4 (527941149) Chronic kidney disease, stage 4 (severe) (N18.4) Active confirmed Problem Disorder of kidney and/or ureter (560230197) Other specified disorders of kidney and ureter (N28.89) Active confirmed Problem Mixed anxiety and depressive disorder (575430434) Depression with anxiety (F41.8) Active confirmed Problem Hypothyroidism (27741348) Hypothyroidism (acquired) (E03.9) Active confirmed Problem Neuropathy (048910711) Neuropathy (G62.9) Active confirmed Problem Essential hypertension (98233489) Essential hypertension (I10) Active confirmed Problem Seasonal allergy (790418802) Seasonal allergies (J30.2) Active confirmed Problem Arthropathy (504676463) Arthritis involving multiple sites (M12.9) Active confirmed Problem Gastroesophageal reflux disease without esophagitis (500741630) Gastroesophageal reflux disease without esophagitis (K21.9) Active confirmed Problem Abnormal mammogram (754195700) Abnormal mammogram (R92.8) Active confirmed Problem Lesion of brain (792412788) Brain lesion (G93.9) Active confirmed Problem Lupus erythematosus (997252331) Lupus erythematosus (L93.0) Active confirmed Problem Dyspnea on exertion (03457350) Dyspnea on exertion (R06.09) Active confirmed Problem Bilateral tinnitus (7742829425519) Tinnitus of both ears (H93.13) Active confirmed Problem Generalized anxiety disorder (54525152) ANGE (generalized anxiety disorder) (F41.1) Active confirmed Problem Chronic kidney disease stage 4 (946895998) Chronic kidney disease, stage IV (severe) (N18.4) Active confirmed Problem Lupus 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) Active confirmed Problem Moderate recurrent major depression (96499601) Moderate episode of recurrent major depressive disorder (F33.1) Active confirmed Problem Allergic rhinitis caused by pollen (73139191) Seasonal allergic rhinitis due to pollen (J30.1) Active confirmed Problem Essential tremor (581436312) Tremor, essential (G25.0) Active confirmed Problem Anemia of chronic disease (557174993) Anemia, chronic disease (D63.8) Active confirmed Problem Urinary incontinence (863769482) Urinary incontinence, unspecified type (R32) Active confirmed Problem Seasonal allergic rhinitis (714910899) Acute seasonal allergic rhinitis (J30.2) Active confirmed Problem Osteoarthritis of knee (138844137) Localized osteoarthritis of knees, bilateral (M17.0) Active confirmed Problem Acute systolic heart failure (018805202) Acute systolic congestive heart failure (I50.21) Active confirmed Problem COVID-19 (405511862) COVID-19 (U07.1) Active confirmed Problem Chronic kidney disease stage 5 (496183430) Chronic kidney failure, stage 5 (N18.5) Active confirmed Vital Signs Heart Rate 78 /min 05/17/2025 Temperature 98.2 degrees Fahrenheit 05/17/2025 Blood pressure diastolic 84 mm Hg 05/17/2025 Height 61 in 05/17/2025 Blood pressure systolic 158 mm Hg 05/17/2025 Weight 120 lbs 05/17/2025 BMI 22.67 kg/m2 05/17/2025 Encounters Encounter Location Date Provider Diagnosis [facility] [address] [address] 03/06/2025 Provider Migration Recurrent UTI N39.0 [facility] [address] [address] 06/26/2024 Liliana McNees Hypothyroidism (acquired) E03.9 ; Lupus nephritis M32.14 ; Arthritis involving multiple sites M12.9 ; Moderate episode of recurrent major depressive disorder F33.1 ; Gastroesophageal reflux disease without esophagitis K21.9 ; Irritable bowel syndrome with diarrhea K58.0 ; Recurrent UTI N39.0 ; Brain lesion G93.9 ; Frequent headaches R51.9 ; Left-sided weakness R53.1 ; Depression with anxiety F41.8 and Routine medical exam Z00.00 [facility] [address] [address] 05/17/2025 Liliana McNees Hypothyroidism (acquired) E03.9 ; Encounter for Medicare annual wellness [...] anxiety disorder) F41.1 and Essential hypertension I10 [facility] [address] [place] [address] 06/29/2024 Liliana McNees [facility] [address] [place] [address] 06/29/2024 Winston Besson [facility] [address] [place] [address] 07/06/2024 Winston Besson [facility] [address] [place] [address] 07/29/2024 Liliana McNees [facility] [address] [place] [address] 08/24/2024 Liliana McNees [facility] [address] [place] [address] 10/05/2024 Winston Besson [facility] [address] [place] [address] 10/08/2024 Liliana McNees [facility] [address] [place] [address] 05/17/2025 Liliana McNees [facility] [address] [place] [address] 05/17/2025 Liliana McNees [facility] [address] [place] [address] 05/19/2025 Winston Besson Assessments Encounter Date Diagnosis (ICD Code) Assessment Notes Treatment Notes Treatment Clinical Notes Section Notes 06/26/2024 Hypothyroidism (acquired) (ICD-10 - E03.9) On synthroid. 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 No recent changes. Previously followed by Hospice, remains palliative care 05/17/2025 Hypothyroidism (acquired) (ICD-10 - E03.9) On synthroid. Will check tsh and treat as indicated 05/17/2025 Encounter for Medicare annual wellness exam (ICD-10 - Z00.00) Given patient''s advanced age is not a candidate for typical healthcare screening such as colonoscopy. No recent falls. Up-to-date with vaccinations. Nonsmoker. 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 No recent changes. Previously followed by Hospice, remains palliative care 06/26/2024 Arthritis involving multiple sites (ICD-10 - M12.9) At baseline 06/26/2024 Moderate episode of recurrent major depressive disorder (ICD-10 - F33.1) Stable on SSRI. No changes made today 05/17/2025 Arthritis involving multiple sites (ICD-10 - M12.9) At baseline 05/17/2025 Moderate episode of recurrent major depressive disorder (ICD-10 - F33.1) Stable on SSRI. No changes made today 06/26/2024 Gastroesophageal reflux disease without esophagitis (ICD-10 - K21.9) Well controlled 06/26/2024 Irritable bowel syndrome with diarrhea (ICD-10 - K58.0) Stable at baseline 05/17/2025 Gastroesophageal reflux disease without esophagitis (ICD-10 - K21.9) Well controlled 03/06/2025 Recurrent UTI (ICD-10 - N39.0) 05/17/2025 Irritable bowel syndrome with diarrhea (ICD-10 - K58.0) Stable at baseline on bentyl 06/26/2024 Recurrent UTI (ICD-10 - N39.0) [facility] records reviewed. Finished levaquin. UA as below, will repeat CX and treat as indicated. 06/26/2024 Brain lesion (ICD-10 - G93.9) MRI as above. Needs MRA and urgent NS referral, will arrange. Discussed urgent return precautions. 05/17/2025 Brain lesion (ICD-10 - G93.9) Declines further imaging or FU at this time. Seen by neuro in the past. 06/26/2024 Frequent headaches (ICD-10 - R51.9) Likely related to the brain lesion. Trial of Nurtec given, discussed MOA and Side effect profile 05/17/2025 BMI 22.0-22.9, adult (ICD-10 - Z68.22) BMI is acceptable 06/26/2024 Left-sided weakness (ICD-10 - R53.1) Improved to baseline. 05/17/2025 Weakness (ICD-10 - R53.1) Patient is [...] acute infection. Supportive care discussed. Add antihistamine 06/26/2024 Depression with anxiety (ICD-10 - F41.8) Stable on SSRI. No changes made today 05/17/2025 ANGE (generalized anxiety disorder) (ICD-10 - F41.1) Well controlled CSA updated and placed on chart Edmund report reviewed and is appropriate - discussed ongoing use of controlled medication and safety associated with these medications 06/26/2024 Routine medical exam (ICD-10 - Z00.00) Immunizations UTD Declines mammogram, colonoscopy, DEXA scan BMI is acceptable 05/17/2025 Essential hypertension (ICD-10 - I10) Blood pressure above goal in office today, patient has been at goal at all over appointment and on home log. No changes made today. Will continue to monitor Plan Of Treatment Pending Test Test Name Order Date N-BUN, Creatinine 10/22/2012 CT Scan : Chest, Without Contrast 2011 Ultrasound : Breast, Right 07/03/2013 Ultrasound : Breast, Right 10/16/2021 Bone Density 08/16/2015 Mammogram : Diagnostic 09/19/2021 DEXA Hip and Spine - Screening 5 MRA : Head 06/26/2024 Cardiolite, Adenosine 03/23/2013 Mammogram : Bilateral 08/16/2015 Mammogram : Bilateral 09/06/2020 Mammogram : Bilateral 01/10/2021 C-CBC 03/24/2020 C-CMP 03/24/2020 C-CMP 02/07/2021 C-TSH 03/24/2020 C-VITAMIN B12 03/24/2020 C-THYROID PROFILE 04/28/2019 C-THYROID PROFILE 03/12/2017 C-URINE CULTURE 03/05/2019 C-VITAMIN D, 25-HYDROXY 03/24/2020 VENIPUNCT, ROUTINE* 03/13/2016 Culture, Urine 09/04/2022 Culture, Urine 05/16/2022 Future Test Test Name Order Date M-Complete Blood Count Auto Diff 019 M-Comprehensive Metabolic Panel 08/10/20 19 Insurance Providers Payer Name Payer Address Payer Phone Subscriber Number Group Number Insured Name Patient Relationship to Insured Coverage Start Date Coverage End Date [employer] MEDICARE DUAL [address] [address] [place] [address] [id number] Chacha Weber Self - patient is the insured Medications Administered Medication Instructions Date of Administration Dosage Notes Ceftriaxone 250 05/16/2022 250 mg Ceftriaxone 250 05/16/2022 250 mg Cyanocobalamin/B-12 Pt's Own Medication 03/29/2014 Cyanocobalamin/B-12 Pt's Own Medication 04/12/2014 Cyanocobalamin/B-12 Pt's Own Medication 04/19/2014 Cyanocobalamin/B-12 Pt's Own Medication 04/30/2014 Cyanocobalamin/B-12 Pt's Own Medication 05/03/2014 Cyanocobalamin/B-12 Pt's Own Medication 05/10/2014 Cyanocobalamin/B-12 Pt's Own Medication 05/17/2014 Cyanocobalamin/B-12 Pt's Own Medication 05/25/2014 Cyanocobalamin/B-12 Pt's Own Medication 05/31/2014 Cyanocobalamin/B-12 Pt's Own Medication 07/02/2014 Cyanocobalamin/B-12 Pt's Own Medication 08/04/2014 Cyanocobalamin/B-12 Pt's Own Medication 08/27/2014 Cyanocobalamin/B-12 Pt's Own Medication 09/29/2014 1 mL Cyanocobalamin/B-12 Pt's Own Medication 11/16/2014 1 mL Cyanocobalamin/B-12 Pt's Own Medication 01/11/2015 Kenalog 40mg 08/13/2017 40 mg Kenalog 40mg 04/03/2018 40 mg Prolia 05/29/2021 60 units Prolia 11/14/2021 60 units left upper arm Triamcinolone Acetonide 40mg Injection 03/08/2020 1 mL Kenalog 02/07/2015 1 Medical (General) History Medical History History ICD Code SLE-diagnosed 5 years ago-has lupus neph ritis rheumatoid arthritis-follows with Dr.Loh su at [facility]. stage III chronic kidney disease from christi pus hypertension hyperlipidemia anxiety disorder hysterectomy Colonoscopy 12/14 - floppy colon with div erticulosis - next due 12/19 GERD Hemorrhoids UTI normal DEXA scan September 2015 - mild ost eopenia on DEXA scan 02/17 colonosocopy 12/20 with tubular adenoma benign-appearing mammogram 02/17 -and aga in normal in October 2021 CHF Surgical History Surgery Date(Month/Year) MERI Benign lung tumor Right foreram ORIF Bilateral cataract excisions Hemmorhoids 2012 Hospitalization History Reason Date(Month/Year) [facility] for 10 day 06/2022 UTI , blood work 05/2022 UTI 06/2021 ELINA 06/2020 pneumonia 04/2020 dehydration 09/2017 fluid 2009
--- OUTSIDE RECORDS SUMMARY | 2025-06-17 08:35 | XMS_ITS | Encounter Summary ---
Author Organization [facility] Address [address] [place] [address] Care Team Providers Care Head Neck Surgeon Name Role Phone Winston Webster MD Primary Care Provider [phone] Liliana Gar APRN Primary Care Provider [phone] Reason for Visit * Reason Comments Med Refill Encounter Details Date Type Department Care Team ([facility] st Contact Info) Description 05/14/2024 Refill [facility] Nephrology, Bone & Mineral Metabolism [address], [address] [place] [address] Enmanuel Castillo MD [address] [place] [address] Social History Tobacco Use Types Packs/Day [...] encounter Miscellaneous Notes * Telephone Encounter - Mallory Tate - 05/27/2024 11:23 AM EDT Patient Phone Message Reason for Call: Pt has an OV on 06/22/24. Does she need to have labs done? If so, could the lab orders be [facility] [place]? Best contact number and optimal time of day to reach caller: Pt [phone] Please call if orders sent so pt will know to go to the lab. Note: Please do not reply to this message. Follow-up communication and further actions as a result of this message need to be communicated with the patient directly, if the patient is not active onMyChart. If the patient is active on MyChart, they will receive notification of the communication/outcome via [employer]. * Telephone Encounter - No Hancock LPN - 05/14/2024 7:23 AM EDT Refilled 04/17/24 #180 tablets for 3 months supply documented in this encounter Plan of Treatment Upcoming Encounters Date Type Department Care Team (Late st Contact Info) Description 09/06/2025 9:45 AM EDT Office Visit [facility] Medicine Specialties [address] [place] [address] Yareli Puga DO [address] [place] [address] 09/13/2025 2:20 PM EDT Office Visit [facility] [place] Nephrology, Bone & Mineral Metabolism [address], [address] [place] [address] 10/22/2025 10:45 AM EST Appointment [facility] [address] [place] [address] 10/22/2025 12:15 PM EST Office Visit [facility] [address] [place] [address] Yan Rowland MD [address] [place] [address] documented as of this encounter Visit Diagnoses Not on filedocumented in this encounter Additional Health Concerns Assessment Noted Time A fall risk assessment has been complete d for the patient 04/17/2024 11:18 AM EDT A Body Mass Index follow-up plan has been documented for the patient 04/17/2024 11:40 AM EDT documented as of this encounter Care Teams Head Neck Surgeon Relationship Specialty Start Date End Date Winston Webster MD [address] [place] [address] PCP - General 04/14/21 02/22/25 Liliana Gar, IMAGERY INTELLIGENCE [address] [place] [address] PCP - General 02/23/25 documented as of this encounter
--- OUTSIDE RECORDS SUMMARY | 2025-06-17 08:35 | XMS_ITS | Encounter Summary ---
Author Organization Healthcare Address [address] [place] [address] Care Team Providers Care Traffic Analysis Technician Name Role Phone Liliana Gar YURIY Primary Care Provider [phone] Encounter Details Date Type Department Care Team (Late st Contact Info) Description 04/14/2025 Telephone [facility] [address] [place] [address] Roosevelt Blackwood MD [address] [place] [address] Social History Tobacco Use Types Packs/Day Years [...] encounter Miscellaneous Notes * Telephone Encounter - Darlyn Mancuso - 04/14/2025 4:21 PM EDT Patient Phone Message Reason for Call: Patient daughter calling regarding MRI upcoming, just had MRI without contrast due to Stage 4 kidney failure asking if new MRI with contrast is still needed please advise Best contact number and optimal time of day to reach caller: [phone] Note: Please do not reply to this message. Follow-up communication and further actions as a result of this message need to be communicated with the patient directly, if the patient is not active onMyChart. If the patient is active on MyChart, they will receive notification of the communication/outcome via [employer]. documented in this encounter Plan of Treatment Upcoming Encounters Date Type Department Care Team (Late st Contact Info) Description 09/06/2025 9:45 AM EDT Office Visit [facility] Medicine Specialties [address] [place] [address] Yareli Puga, [address] [place] [address] 09/13/2025 2:20 PM EDT Office Visit [facility] Nephrology, Bone & Mineral Metabolism [address], [address] [place] [address] 10/22/2025 10:45 AM EST Appointment [facility] [address]st [place] [address] 10/22/2025 12:15 PM EST Office Visit [place] [facility] [address] [place] [address] Yan Rowland MD [address] [place] [address] documented as of this encounter Visit Diagnoses Not on filedocumented in this encounter Additional Health Concerns Assessment Noted Time A fall risk assessment has been complete d for the patient 04/09/2025 11:33 AM EDT A Body Mass Index follow-up plan has been documented for the patient 04/12/2025 6:41 PM EDT documented as of this encounter Care Teams Traffic Analysis Technician Relationship Specialty Start Date End Date Liliana Gar, YURIY [address] [facility] [address] [place] [address] PCP - General 02/23/25 documented as of this encounter
--- OUTSIDE RECORDS SUMMARY | 2025-06-17 08:35 | XMS_ITS | Encounter Summary ---
Author Organization Healthcare Address [address] [place] [address] Care Team Providers Care Centerless Grinder Tender Name Role Phone Liliana Gar YURIY Primary Care Provider [phone] Encounter Details Date Type Department Care Team (Latest Contact Info) Description 05/03/2025 Travel Social History Tobacco Use Types Packs/Day [...] Description 09/06/2025 9:45 AM EDT Office Visit [facility] Medicine Specialties [address] [place] [address] Yareli Puga DO [address] [place] [address] 09/13/2025 2:20 PM EDT Office Visit [facility] Nephrology, Bone & Mineral Metabolism [address], [address] [place] [address] 10/22/2025 10:45 AM EST Appointment [facility] [address], 1st [place] [address] 10/22/2025 12:15 PM EST Office Visit [place] [facility] [address] 1[address] [place] [address] Yan Rowland MD [address] [place] [address] documented as of this encounter Visit Diagnoses Not on filedocumented in this encounter Additional Health Concerns Assessment Noted Time A fall risk assessment has been complete d for the patient 04/09/2025 11:33 AM EDT A Body Mass Index follow-up plan has been documented for the patient 04/12/2025 6:41 PM EDT documented as of this encounter Care Teams Centerless Grinder Tender Relationship Specialty Start Date End Date Liliana Gar, YUIRY [address] [facility] [address] [place] [address] PCP - General 02/23/25 documented as of this encounter
--- OUTSIDE RECORDS SUMMARY | 2025-06-17 08:35 | XMS_ITS | Encounter Summary ---
Author Organization [facility] Address [address] [place] [address] Care Team Providers Care Laborer Yard Name Role Phone Liliana Gar YURIY Primary Care Provider [phone] Encounter Details Date Type Department Care Team (Latest Contact Info) Description 05/10/2025 Travel Social History Tobacco Use Types Packs/Day [...] Visit [facility] Medicine Specialties [address] [place] [address] Yareli Puga, DO [address] [place] [address] 09/13/2025 2:20 PM EDT Office Visit [facility] Nephrology, Bone & Mineral Metabolism [address] [place] [address] 10/22/2025 10:45 AM EST Appointment [facility] [address] 1st [place] [address] 10/22/2025 12:15 PM EST Office Visit [place] [facility] [address] [place] [address] Yan Rowland MD [address] [place] [address] documented as of this encounter Visit Diagnoses Not on filedocumented in this encounter Additional Health Concerns Assessment Noted Time A fall risk assessment has been complete d for the patient 05/10/2025 10:48 AM EDT A Body Mass Index follow-up plan has been documented for the patient 05/06/2025 11:10 AM EDT documented as of this encounter Care Teams Laborer Yard Relationship Specialty Start Date End Date Liliana Gar APRN [address] [facility] [address] [place] [address] PCP - General 02/23/25 documented as of this encounter
--- OUTSIDE RECORDS SUMMARY | 2025-06-17 08:35 | XMS_ITS | Encounter Summary ---
Author Organization [facility] Address [address] [place] [address] Care Team Providers Care Celebrity Chef Entrepreneur Media Personality Name Role Phone Liliana Gar YURIY Primary Care Provider [phone] Encounter Details Date Type Department Care Team ([facility] Contact Info) Description 05/06/2025 Telephone [facility] Nephrology, Bone & Mineral Metabolism [address] [place] [address] Enmanuel Castillo MD [address] [facility] [address] [place] [address] Social History Tobacco Use Types [...] encounter Miscellaneous Notes * Telephone Encounter - Fatuma Lugo - 05/06/2025 3:00 PM EDT Patient Phone Message Reason for Call: Pt did labs at for her PCP today because she wasn't able to do the labs at [facility]. She asks for a call back. Best contact number and optimal time of day to reach caller: [phone] Note: Please do not reply to this message. Follow-up communication and further actions as a result of this message need to be communicated with the patient directly, if the patient is not active onMyChart. If the patient is active on MyChart, they will receive notification of the communication/outcome via [employer]. documented in this encounter Plan of Treatment Upcoming Encounters Date Type Department Care Team (Late st Contact Info) Description 09/06/2025 9:45 AM EDT Office Visit [facility] Medicine Specialties [address] [place] [address] Yareli Puga, DO [address] [place] [address] 09/13/2025 2:20 PM EDT Office Visit [facility] [place] Nephrology, Bone & Mineral Metabolism [address], [address] [place] [address] 10/22/2025 10:45 AM EST Appointment [facility] [address] 1st [place] [address] 10/22/2025 12:15 PM EST Office Visit [place] [facility] [address] [place] [address] Yan Rowland MD [address] [place] [address] documented as of this encounter Visit Diagnoses Not on filedocumented in this encounter Additional Health Concerns Assessment Noted Time A fall risk assessment has been complete d for the patient 05/06/2025 10:53 AM EDT A Body Mass Index follow-up plan has been documented for the patient 05/06/2025 11:10 AM EDT documented as of this encounter Care Teams Celebrity Chef Entrepreneur Media Personality Relationship Specialty Start Date End Date Liliana Gar, YURIY [address] [facility] [address] [place] [address] PCP - General 02/23/25 documented as of this encounter
--- OUTSIDE RECORDS SUMMARY | 2025-06-17 08:35 | XMS_ITS | Encounter Summary ---
Author Organization [facility] Address [address] [place] [address] Care Team Providers Care Supervisor Blood Donor Recruiters Name Role Phone Winston Webster MD Primary Care Provider [phone] Liliana Gar APRN Primary Care Provider [phone] Encounter Details Date Type Department Care Team (Late st Contact Info) Description 06/12/2024 Orders Only External Location [address] [place] [address] Provider, External Social History Tobacco Use Types [...] Description 09/06/2025 9:45 AM EDT Office Visit [facility] Medicine Specialties [address] [place] [address] Yareli Puga, [address] [place] [address] 09/13/2025 2:20 PM EDT Office Visit [facility] Nephrology, Bone & Mineral Metabolism [address] [place] [address] 10/22/2025 10:45 AM EST Appointment [facility] [address] 1st [place] [address] 10/22/2025 12:15 PM EST Office Visit [place] [facility] [address] [place] [address] Yan Rowland MD [address] [place] [address] documented as of this encounter Procedures Procedure Name Priority Date/Time Associated Diagnosis Comments CT NEURO OUTSIDE IMAGES 06/12/2024 11:16 AM EDT documented in this encounter Results * CT NEURO OUTSIDE IMAGES (06/12/2024 11:16 AM EDT) Anatomical Region Laterality Modality Computed Tomogra phy 06/12/2024 11:1 6 AM EDT External Provider IMG CT PROCEDURES Final Result documented in this encounter Visit Diagnoses Not on filedocumented in this encounter Additional Health Concerns Assessment Noted Time A fall risk assessment has been complete d for the patient 04/17/2024 11:18 AM EDT A Body Mass Index follow-up plan has been documented for the patient 04/17/2024 11:40 AM EDT documented as of this encounter Care Teams Supervisor Blood Donor Recruiters Relationship Specialty Start Date End Date Winston Webster MD [address] [place] [address] PCP - General 04/14/21 02/22/25 Liliana Gar, YURIY [address] [place] [address] PCP - General 02/23/25 documented as of this encounter
--- OUTSIDE RECORDS SUMMARY | 2025-06-17 08:35 | XMS_ITS | Encounter Summary ---
Author Organization [facility] Address [address] [place] [address] Care Team Providers Care Online Content Editor Name Role Phone Liliana Gar YURIY Primary Care Provider [phone] Reason for Visit * Reason Onset Date Comments Med Refill 06/03/2025 Encounter Details Date Type Department Care Team (Late st Contact Info) Description 06/03/2025 Refill [facility] Medicine Specialties [address] [place] [address] Tea Hagen MD [address] [place] [address] Systemic lupus erythematosus, organ or system involvement unspecified (CMS/HCC) Social History Tobacco Use Types Packs/Day [...] encounter Miscellaneous Notes * Progress Notes - Jen Terrazas, PharmD - 06/03/2025 11:11 AM EDT Refill request does not meet protocol. Sending to clinic for review. Additional info: 200 mg vs 300 mg? documented in this encounter Plan of Treatment Upcoming Encounters Date Type Department Care Team (Late st Contact Info) Description 09/06/2025 9:45 AM EDT Office Visit [facility] Medicine Specialties [address] [place] [address] Yareli Puga DO [address] [place] [address] 09/13/2025 2:20 PM EDT Office Visit [facility] Nephrology, Bone & Mineral Metabolism [address], [address] [place] [address] 10/22/2025 10:45 AM EST Appointment [facility] [address] 1st [place] [address] 10/22/2025 12:15 PM EST Office Visit [facility] [address] 1st [place] [address] Yan Rowland MD [address] [place] [address] documented as of this encounter Visit Diagnoses Diagnosis Systemic lupus erythematosus, organ or system involvement unspecified (CMS/HCC) documented in this encounter Additional Health Concerns Assessment Noted Time A fall risk assessment has been complete d for the patient 05/10/2025 10:48 AM EDT A Body Mass Index follow-up plan has been documented for the patient 05/06/2025 11:10 AM EDT documented as of this encounter Care Teams Online Content Editor Relationship Specialty Start Date End Date Liliana Gar, SPENT GRAIN DRYER [address] [place] [address] PCP - General 02/23/25 documented as of this encounter
--- OUTSIDE RECORDS SUMMARY | 2025-06-17 08:35 | XMS_ITS | Encounter Summary ---
Author Organization [facility] Address [address] [place] [address] Care Team Providers Care Facility Specialist Name Role Phone Winston Webster MD Primary Care Provider [phone] Liliana Gar APRN Primary Care Provider [phone] Encounter Details Date Type Department Care Team (Late st Contact Info) Description 06/12/2024 Orders Only External Location [address] [place] [address] Provider, External Social History Tobacco Use Types [...] Description 09/06/2025 9:45 AM EDT Office Visit [place] [facility] Medicine Specialties [address] [place] [address] Yareli Puga, [address] [place] [address] 09/13/2025 2:20 PM EDT Office Visit [facility] [employer] [place] Nephrology, Bone & Mineral Metabolism [address], [address] [place] [address] 10/22/2025 10:45 AM EST Appointment [facility] [address] 1st [place] [address] 10/22/2025 12:15 PM EST Office Visit [place] [facility] [address] [place] [address] Yan Rowland MD [address] [place] [address] documented as of this encounter Procedures Procedure Name Priority Date/Time Associated Diagnosis Comments CT NEURO OUTSIDE IMAGES 06/12/2024 11:18 AM EDT documented in this encounter Results * CT NEURO OUTSIDE IMAGES (06/12/2024 11:18 AM EDT) Anatomical Region Laterality Modality Computed Tomogra phy 06/12/2024 11:1 8 AM EDT External Provider IMG CT PROCEDURES [...] documented as of this encounter Care Teams Facility Specialist Relationship Specialty Start Date End Date Winston Webster MD [address] [place] [address] PCP - General 04/14/21 02/22/25 Liliana Gar, YURIY [address] [place] [address] PCP - General 02/23/25 documented as of this encounter
--- OUTSIDE RECORDS SUMMARY | 2025-06-17 08:35 | XMS_ITS | Encounter Summary ---
Author Organization [facility] Address [address] [place] [address] Care Team Providers Care Lab Clerk Name Role Phone Liliana Gar YURIY Primary Care Provider [phone] Reason for Visit * Reason Onset Date Comments HCN - Patient Message 06/02/2025 Cancel Encounter Details Date Type Department Care Team (Late st Contact Info) Description 06/02/2025 Telephone [place] [facility] [address] [place] [address] Roosevelt Blackwood MD [address] [place] [address] [facility] - Patient Message (Cancel ) Social History Tobacco Use Types Packs/Day Years [...] encounter Miscellaneous Notes * Telephone Encounter - Francesca Mata - 06/02/2025 3:57 PM EDT Appointment cancelled. Pt can contact the clinic if she wishes to reschedule. * Telephone Encounter - Jennifer Xavier - 06/02/2025 3:43 PM EDT Patient Phone Message Reason for Call: Please cancel upcoming appt. Best contact number and optimal time of day to reach caller: [phone] anytime Note: Please do not reply to this message. Follow-up communication and further actions as a result of this message need to be communicated with the patient directly, if the patient is not active onMyChart. If the patient is active on MyChart, they will receive notification of the communication/outcome via [email or web address]. documented in this encounter Plan of Treatment Upcoming Encounters Date Type Department Care Team (Late st Contact Info) Description 09/06/2025 9:45 AM EDT Office Visit [facility] Medicine Specialties [address] [place] [address] Yareli Puga DO [address] [place] [address] 09/13/2025 2:20 PM EDT [facility] Nephrology, Bone & Mineral Metabolism [address], [address] [place] [address] 10/22/2025 10:45 AM EST Appointment [facility] [address], 1st [place] [address] 10/22/2025 12:15 PM EST Office Visit [place] [facility] [address] [place] [address] Yan Rowland MD [address] [place] [address] documented as of this encounter Visit Diagnoses Not on filedocumented in this encounter Additional Health Concerns Assessment Noted Time A fall risk assessment has been complete d for the patient 05/10/2025 10:48 AM EDT A Body Mass Index follow-up plan has been documented for the patient 05/06/2025 11:10 AM EDT documented as of this encounter Care Teams Lab Clerk Relationship Specialty Start Date End Date Liliana Gar, PROCESS ASSISTANT [address] [facility] [address] [place] [address] PCP - General 02/23/25 documented as of this encounter
--- OUTSIDE RECORDS SUMMARY | 2025-06-17 08:36 | XMS_ITS | Clinical Summary ---
Author Organization [facility] Address [address] [place] [address] Care Team Providers Care Binman Name Role Phone Liliana Gar OCC MED PHYSICIAN Primary Care Provider [phone] Allergies Active Allergy Reactions Criticality Noted Date Comments Thien Inhibitors Unknown - Patient st ates they do not know rxn details Low 01/07/2013 Latex Unknown - Patient st ates they do not know rxn details Low 07/05/2009 Morphine Rash,Itching Medium 07/05/2009 Other Unknown - Patient st ates they do not know rxn details Low 01/08/2022 Medications acetaminophen (Tylenol) 325 MG capsule Take 1 capsule (325 mg) by mouth every 4 (four) hours if needed. 05/03/20 20 Active busPIRone (Buspar) 10 MG tablet Take by mouth 2 (two) times a day. 05/03/20 20 Active fluticasone (Flonase) 50 MCG/ACT nasal spray 05/03/20 20 Active mirtazapine (Remeron) 15 MG tablet 05/03/20 20 Active ALPRAZolam (Xanax) 0.25 MG tablet 03/02/20 22 Active dicyclomine (Bentyl) 10 MG capsule Take 1 capsule (10 mg) by mouth 2 (two) times a day. 10/08/20 22 Active Calcium Polycarbophil (FIBER-CAPS PO) Take by mouth. Active Fiber 500 MG capsule Take by mouth. Active omeprazole (PriLOSEC) [address] capsule 12/19/19 23 Active ondansetron (Zofran) 4 MG tablet Take by mouth. 05/29/20 23 Active levothyroxine (Synthroid, Levoxyl) 150 MCG tablet 06/11/20 24 Active Imitrex 100 MG tablet Take 1 tablet (100 mg) by mouth 1 (one) time if needed for migraine. 07/29/20 24 Active Rimegepant Sulfate (Nurtec) 75 MG orally disintegrating tablet Take 1 tablet (75 mg) by mouth every other day. 07/06/20 24 Active doxepin (SINEquan) 10 MG capsule Take 1-2 capsules (10-20 mg) by mouth at night if needed for sleep. 180 capsule 3 11/24/20 24 Active sertraline (Zoloft) 25 MG tablet Take 1 tablet (25 mg) by mouth 1 (one) time each day. 90 tablet 3 01/11/20 25 026 Active sodium bicarbonate 650 MG tablet Take 2 tablets by mouth 2 times a day. 360 tablet 3 05/10/20 25 Active NIFEdipine XL (Procardia XL) 30 MG 24 hr tabletIndications :Benign essential hypertension Take 1 tablet by mouth daily. Do not crush, chew, or split. 90 tablet 3 05/10/20 25 Active darbepoetin alondra (Aranesp, Albumin Free,) 40 MCG/0.4ML solution prefilled syringeIndication s:Anemia in other chronic diseases classified elsewhere,Stage 4 chronic kidney disease (CMS/HCC) Inject 0.4 mL under the skin every 28 days. 1.2 mL 1 05/10/20 25 Active mycophenolate (Cellcept) 500 MG tabletIndications :Systemic lupus erythematosus, organ or system involvement unspecified (CMS/HCC) TAKE 1 TABLET TWICE DAILY 180 tablet 3 05/17/20 25 Active Hydroxychloroquin e Sulfate 300 MG tabletIndications :Systemic lupus erythematosus, organ or system involvement unspecified (CMS/HCC) Take 300 mg by mouth daily. 90 tablet 06/04/20 25 Active cholecalciferol (Vitamin D-3) 50 MCG (1999 UT) capsule TAKE 1 CAPSULE EVERY DAY 90 capsule 3 06/14/20 25 Active cholecalciferol (Vitamin D-3) 50 MCG (2000 UT) capsule Take 1 capsule (2,000 Units) by mouth 1 (one) time each day. 90 capsule 3 09/28/20 025 Discontinued Hydroxychloroquin e Sulfate 300 MG tabletIndications :Systemic lupus erythematosus, organ or system involvement unspecified (CMS/HCC) Take 300 mg by mouth 1 (one) time each day. 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 08/20/2013 Vitamin D deficiency 08/20/2013 Chronic glomerulonephritis syndrome 01/08/2013 Systemic lupus erythematosus with organ system i nvolvement 01/08/2013 Benign essential hypertension 01/07/2013 Proteinuria 01/07/2013 Stage 4 chronic kidney disease 01/07/2013 Resolved Problems Problem Noted Date Diagnosed Date Resolved Date Abnormal cardiovascular stress test 11/24/2024 11/24/2024 Abnormal EKG 11/24/2024 11/24/2024 Abscess of right breast 11/24/202411/02 Acquired hammertoes of both feet 11/24/2024 11/24/2024 Atypical angina 11/24/2024 11/24/2024 Burning sensation of foot 11/24/2024 Chest pain 11/24/2024 11/24/2024 Community acquired pneumonia 11/24/2024 11/24/2024 Coronary artery calcification seen on CT scan 11/24/2011/24/2024 COVID-19 ruled out 11/24/2024 Decreased sensation of lower extremity 11/24/2024 11/24/2024 Dyspnea 11/24/2024 11/24/2024 ANGE (generalized anxiety disorder) 11/24/2024 11/24/2024 Hypothyroid 11/24/2024 11/24/2024 Mixed hyperlipidemia 11/24/2024 024 Onychodystrophy 11/24/2024 11/24/2024 Pain around toenail 11/24/2024 11/24/20 Pre-ulcerative calluses 11/24/202411/02 UTI (urinary tract infection) 11/24/2024 11/24/2024 Encounters Date Type Department Care Team Description 06/10/2025 Refill [facility] Nephrology, Bone & Mineral Metabolism [address], [address] [place] [address] Lena Leon MD 06/03/2025 Refill [facility] Specialties [address], [address] [place] [address] Tea Hagen MD Systemic lupus erythematosus, organ or system involvement unspecified ([facility]/HCC) 06/02/2025 Telephone [facility] [address], [address] [place] [address] Roosevelt Blackwood MD HCN - Patient Message (Cancel ) 05/16/2025 Refill [facility] [address], [address] [place] [address] Dave Moran MD Systemic lupus erythematosus, organ or system involvement unspecified ([facility]/HCC) (Primary Dx) 05/10/2025 11:00 AM EDT Office Visit [facility] Nephrology, Bone & Mineral Metabolism [address], [address] [place] [address] Enmanuel Castillo MD Anemia in other chronic diseases classified elsewhere (Primary Dx); Benign essential hypertension; Stage 4 chronic kidney disease (CMS/HCC) 05/10/2025 Telephone [facility] Nephrology, Bone & Mineral Metabolism [address], [address] [place] [address] Yaima Cuellar, PharmD 05/10/2025 Travel 05/06/2025 10:45 AM EDT Office Visit [facility] [address], [address] [place] [address] Yareli Puga DO Systemic lupus erythematosus, organ or system involvement unspecified (CMS/HCC) (Primary Dx); Stage 4 chronic kidney disease (CMS/HCC) 05/06/2025 Telephone [facility] Nephrology, Bone & Mineral Metabolism [address] [facility] [address] [facility], [address] [place] [address] Enmanuel Castillo MD 05/06/2025 Telephone [facility] Bone [facility] Mineral Met[facility] [address], [address] [place] [address] Kymberly Champion CNA 05/06/2025 Travel 05/03/2025 Travel 04/29/2025 Travel 04/14/2025 [facility]phone [facility] [address] [place] [address] Roosevelt Blackwood MD 04/09/2025 11:15 AM EDT Consult [facility] [address], [address] [place] [phone] Yan Rowland MD Cerebral aneurysm, nonruptured (Primary Dx); Brain mass; Schwannoma 04/09/2025 Travel 04/02/2025 Travel 03/31/2025 Orders Only External Location [address] [place] [address] Provider, External from Last 3 Months Immunizations Immunization Administration Dates Next Due Influenza, High-dose, Split Virus, Trivalent, Injectable, preservative free 11/24/2024 Influenza, high-dose, quadrivalent 09/19,09/06/2020,08/18/2019,07/22 Influenza, injectable, quadrivalent 08/13/2017,0 08/23/2016,09/20/2015 Influenza, seasonal, injectable 09/08/2014 Influenza, seasonal, injecta ble, preservative free 08/21/2013 Moderna COVID-19 Vaccine (Re d Cap) 12+ years 02/23/2021,01/26/2021 Pneumococcal Conjugate PCV 13 08/23/2016 Pneumococcal Polysaccharide PPV23 11/17/2019,07/2014 Family History Medical History Relation Name Comments Ovarian cancer Cousin Colon cancer Father David Diabetes Father David Hypertension Father David Breast cancer Mother [place] Diabetes Mother [place] Hypertension Mother [place] Lung cancer Mother [place] Skin cancer Mother [place] Alcohol abuse Other 1 Cancer Other 2 Colon cancer Other 3 Diabetes Other 4 Drug abuse Other 5 Hyperlipidemia Other 6 Hypertension Other 7 Hyperthyroidism Other 8 Hypothyroidism Other 9 Lung cancer Other 10 Ovarian cancer Other 11 Cancer Sister Roxane Hahn Relation Name Status Comments Cousin Father David Mother Tg Other 1 Other 2 Other 3 Other 4 Other 5 Other 6 Other 7 Other 8 Other 9 Other 10 Other 11 Sister Roxane Hahn Social History Tobacco Use Types Packs/Day Years [...] on file Sexual Orientation Not on file Last Filed Vital Signs Vital Sign Reading [...] Mass Index 24.41 05/10/2025 10:46 AM EDT Plan of Treatment Upcoming Encounters Date Type Department Care Team (Late st Contact Info) Description 09/06/2025 9:45 AM EDT Office Visit [facility] [address] [place] [address] Yareli Puga DO [address] [place] [address] 09/13/2025 2:20 PM EDT Office Visit [facility] Nephrology, Bone & Mineral Metabolism [address] [facility], [address] [place] [address] 10/22/2025 10:45 AM EST Appointment [facility] [address] [place] [address] 10/22/2025 12:15 PM EST Office Visit [facility] [address], [address] [place] [address] Yan Rowland MD [address] [place] [address] Health Maintenance Due Date Last Done Comments [facility]-Hepatitis C Screening 1950 [facility]-Medicare Annual Wellness (AWV) 1950 [facility]-/Child/Adol SDOH Screenings 1950 [facility]- SDOH Screenings 1967 [facility]-Adult SDOH Screenings 1967 [facility]-DTaP,Tdap,and Td Vaccines (1 - Tdap) 02/21/1968 [facility]-Zoster Vaccines (1 of 2) 02/21/1968 [id number] Vaccine (3 - Moderna risk series) 03/23/2021 02/23/2021, 01/26/2021 [facility]-RSV Vaccine: 60+ Years or (1 - 1-dose 75+ series) 02/21/2024 [facility]-Bone Density Scan 01/09/2025 01/09/2024 [facility]-Influenza Vaccine (#1) 08/02/202511/24, 10/04/2023, 09/04/2022, Additional history exists [facility]-Depression Screening 05/06/2026 05/06/2025 [facility]-Pneumococcal Vaccine: 50+ Years Completed 11/17/2019, 08/23/2016, 09/08/2014 HPV Vaccines Aged Out No longer eligi ble based on patient's age to complete this topic [facility]-HIB Vaccines Aged Out No longer e ligible based on patient's age to complete this topic [facility]-Hepatitis A Vaccines Aged Out No longer eligible based on patient's age to complete this topic [facility]-IPV Vaccines Aged Out No longer e ligible based on patient's age to complete this topic [facility]-Rotavirus Vaccines Aged Out No lo nger eligible based on patient's age to complete this topic Procedures Procedure Name Priority Date/Time Associated Diagnosis Comments URINALYSIS MICROSCOPIC FOR UA REFLEX Routine 05/06/2025 11:38 AM EDT Systemic lupus erythematosus, organ or system involvement unspecified (CMS/HCC) Stage 4 chronic kidney disease (CMS/HCC) ALBUMIN, URINE, RANDOM Routine 05/06/2025 11:38 AM EDT Benign essential hypertension Stage 4 chronic kidney disease (CMS/HCC) PROTEIN, URINE, RANDOM WITH CREATININE Routine 05/06/2025 11:38 AM EDT Systemic lupus erythematosus, organ or system involvement unspecified (CMS/HCC) Stage 4 chronic kidney disease (CMS/HCC) URINALYSIS WITH REFLEX MICROSCOPIC Routine 05/06/2025 11:38 AM EDT Systemic lupus erythematosus, organ or system involvement unspecified (CMS/HCC) Stage 4 chronic kidney disease (CMS/HCC) PHOSPHORUS, PLASMA Routine 05/06/2025 11 :27 AM EDT Benign essential hypertension Stage 4 chronic kidney disease (CMS/HCC) PTH INTACT TOTAL Routine 05/06/2025 11:2 7 AM EDT Benign essential hypertension Stage 4 chronic kidney disease (CMS/HCC) VITAMIN D 25 HYDROXY Routine 05/06/2025 11:27 AM EDT Benign essential hypertension Stage 4 chronic kidney disease (CMS/HCC) CBC WITH AUTO DIFFERENTIAL Routine 05/06/2025 11:27 AM EDT Systemic lupus erythematosus, organ or system involvement unspecified (CMS/HCC) Stage 4 chronic kidney disease (CMS/HCC) COMPREHENSIVE METABOLIC PANEL, PLASMA Routine 05/06/2025 11:27 AM EDT Systemic lupus erythematosus, organ or system involvement unspecified (CMS/HCC) Stage 4 chronic kidney disease (CMS/HCC) C-REACTIVE PROTEIN, PLASMA Routine 05/06/2025 11:27 AM EDT Systemic lupus erythematosus, organ or system involvement unspecified (CMS/HCC) Stage 4 chronic kidney disease (CMS/HCC) SEDIMENTATION RATE, AUTOMATED Routine 05/06/2025 11:27 AM EDT Systemic lupus erythematosus, organ or system involvement unspecified (CMS/HCC) Stage 4 chronic kidney disease (CMS/HCC) DOUBLE-STRANDED DNA (DSDNA) ANTIBODY, IGG BY IFA (SO) Routine 05/06/2025 11:27 AM EDT Systemic lupus erythematosus, organ or system involvement unspecified (CMS/HCC) Stage 4 chronic kidney disease (CMS/HCC) C3 COMPLEMENT Routine 05/06/2025 11:27 AM EDT Systemic lupus erythematosus, organ or system involvement unspecified (CMS/HCC) Stage 4 chronic kidney disease (CMS/HCC) C4 COMPLEMENT Routine 05/06/2025 11:27 AM EDT Systemic lupus erythematosus, organ or system involvement unspecified (CMS/HCC) Stage 4 chronic kidney disease (CMS/HCC) MR NEURO OUTSIDE IMAGES 03/31/2025 8:04 AM EDT DEXA BONE DENSITY Routine 01/09/2024 4:1 1 PM EST Age related osteoporosis, unspecified pathological fracture presence from Last 3 Months or Most Recently Relevant to Health Maintenance Results * Urinalysis Microscopic Examination (05/06/2025 11:38 AM EDT) Urine Urine specimen obtained by clean catch procedure / Unknown Non-blood Collection / Unknown 05/06/2025 11:38 AM EDT 05/06/2025 11:38 AM EDT Yareli Puga DO LAB URINE ORDERABLES Final Resu lt Performing Organization Address [facility] Co de Phone Number [facility] [address] [place] [address] * (ABNORMAL) Albumin-creatinine ratio, urine, random (05/06/2025 11:38 AM EDT) Microalbumin, Urine 20.56(H) <1.9 mg/dL 05/06/2025 1:14 PM EDT [facility] Creatinine, Urine 74 mg/dL 05/06/2025 1:14 PM EDT [facility] Albumin/Creat inine Ratio 278(H) 0 - 30 mg/g creatinine 05/06/2025 1:14 PM EDT [facility] Urine Urine specimen obtained by clean catch procedure / Unknown Non-blood Collection / Unknown 05/06/2025 11:38 AM EDT 05/06/2025 11:38 AM EDT us Enmanuel Castillo MD LAB URINE ORDERABLES Final Re sult Performing Organization Address [facility] Co de Phone Number [facility] [address] [place] [address] * Protein, Random, Urine with Creatinine (05/06/2025 [...] 11:38 AM EDT 05/06/2025 11:38 AM EDT us Yareli Puga DO LAB URINE ORDERABLES Final Resu lt Performing Organization Address [facility]/ZIP Co de Phone Number [facility] [address] [place] [address] * (ABNORMAL) Urinalysis with reflex microscopic (Culture NOT Included) (05/06/2025 11:38 AM EDT) Color, Urine Yellow LAB URINALYSIS - AUTOMATED METHOD 05/06/2025 1:11 PM EDT [facility] Clarity, Urine Cloudy LAB URINALYSIS - AUTOMATED METHOD 05/06/2025 1:11 PM EDT [facility] Spec [place], Urine 1.011 1.005 - 1.030 LAB URINALYSIS [...] 11:38 AM EDT 05/06/2025 11:38 AM EDT us Yareli Puga DO LAB URINE ORDERABLES Final Resu lt [facility] [address] [place] [address] * Double-Stranded DNA (dsDNA) Antibody, IgG by IFA (05/06/2025 11:27 AM EDT) Double-Strande d DNA (dsDNA) Ab IgG IFA <1:10 <1:10 05/09/2025 5:15 AM EDT [facility]) Blood Venous blood specimen / Unknown Venipuncture / Unknown 05/06/2025 11:27 AM EDT 05/06/2025 11:28 AM EDT Narrative [facility] ([facility]) - 05/09/2025 5:15 AM EDT INTERPRETIVE [...] recommendations for testing may be found at [email or web address].[email or web address]. Performed By: [email or web address] [address] [place] [address] Bagging Machine Operator: Enmanuel Jaime MD, PhD CLIA Number: [id number] Yareli Puga DO LAB BLOOD ORDERABLES Final Resu lt Performing Organization Address City/[facility]/ZIP Co de Phone Number [facility] ([facility]) [address] [place] [address] * Vitamin D 25 Hydroxy (05/06/2025 11:27 AM EDT) Vitamin D 25 Hydroxy 48.3 20.0 - 80.0 ng/mL 05/06/2025 2:29 PM EDT [facility] Blood Venous blood specimen / Unknown Venipuncture / Unknown 05/06/2025 11:27 AM EDT 05/06/2025 11:28 AM EDT Narrative [facility] - 05/06/2025 2:29 PM EDT Testing performed on [employer], standardized against NIST SRM 2972. When testing samples from patients whose predominant form of vitamin D is vitamin D2, such as patients receiving vitamin D2 supplementation, results that are subtherapeutic should be confirmed with another method, such as LC-MS/MS, before being used for patient management. Vitamin D, 25-Hydroxy reference range, age 18 years and up: Deficiency: <12 ng/mL Insufficiency: 12 to 19 ng/mL Sufficiency: 20 to 80 ng/mL Possible toxicity: >100 ng/mL us Enmanuel Castillo MD LAB BLOOD ORDERABLES Final Re sult [facility] [address] [place] [address] * Sedimentation Rate, Automated (05/06/2025 11:27 AM EDT) Sedimentation Rate 16 <30 mm/hr 2024 1:20 PM EDT [facility] Blood Venous blood specimen / Unknown Venipuncture / Unknown 05/06/2025 11:27 AM EDT 05/06/2025 11:28 AM EDT us Yareli Puga DO LAB BLOOD ORDERABLES Final Resu lt [facility] [address] [place] [address] * (ABNORMAL) CBC and Differential (05/06/2025 11:27 [...] [facility] - 05/06/2025 1:07 PM EDT Therapeutic decision making should be based on absolute values, rather than percentages. us Yareli Antic DO LAB BLOOD ORDERABLES Final Resu lt [facility] [address] [place] [address] * C3 Complement (05/06/2025 11:27 AM EDT) C3 Complement 126 84 - 166 mg/dL 05/06/2025 1:40 PM EDT [facility] Blood Venous blood specimen / Unknown Venipuncture / Unknown 05/06/2025 11:27 AM EDT 05/06/2025 11:28 AM EDT [employer] [employer] LAB BLOOD ORDERABLES Final Resu lt Performing Organization Address City/[facility]/ZIP Co de Phone Number [facility] [address] [place] [address] * C4 Complement (05/06/2025 11:27 AM EDT) C4 Complement 20 13 - 36 mg/dL 05/06/2025 1:40 PM EDT [facility] Blood Venous blood specimen / Unknown Venipuncture / Unknown 05/06/2025 11:27 AM EDT 05/06/2025 11:28 AM EDT [employer] LAB BLOOD ORDERABLES Final Resu lt Performing Organization Address [facility] Co de Phone Number [facility] [address] [place] [address] * C-Reactive Protein, Plasma (05/06/2025 11:27 AM EDT) CRP, Plasma <3.0 <=8.0 mg/L 05/06/2025 1:28 [...] disease risk order high sensitivity CRP (CRPH). [employer] LAB BLOOD ORDERABLES Final Resu lt Performing Organization Address City/[facility]/ZIP Co de Phone Number [facility] [address] [place] [address] * Phosphorus, Plasma (05/06/2025 11:27 AM EDT) Phosphorus, Plasma 4.5 2.5 - 4.5 mg/dL 05/06/2025 1:28 PM EDT [facility] Blood Venous blood specimen / Unknown Venipuncture / Unknown 05/06/2025 11:27 AM EDT 05/06/2025 11:28 AM EDT Enmanuel Castillo MD LAB BLOOD ORDERABLES Final Re sult Performing Organization Address [facility] Co de Phone Number [facility] [address] [place] [address] * (ABNORMAL) PTH Intact Total (05/06/2025 11:27 AM EDT) Pathologist [facility] PTH Intact Total 415(H) 9 - 77 pg/mL 05/06/2025 3:41 PM EDT [facility] Blood Venous blood specimen / Unknown Venipuncture / Unknown 05/06/2025 11:27 AM EDT 05/06/2025 11:28 AM EDT Narrative [facility] - 05/06/2025 3:41 PM EDT Assay performed by immunoassay at the [facility]. Performed on Pras[employer] Cutter Apprentice chemiluminescent immunoassay, tractable to the World Health Organization's first international standard for PTH from the NIBS, Code 79/500. Results obtained from different test methods or kits cannot be used interchangeably. Enmanuel Castillo MD LAB BLOOD ORDERABLES Final Re sult Performing Organization Address [facility] Co de Phone Number [facility] [address] [place] [address] * (ABNORMAL) Comprehensive Metabolic Panel, Plasma (05/06/2025 [...] 11:27 AM EDT 05/06/2025 11:28 AM EDT us Yareli Puga DO LAB BLOOD ORDERABLES Final Resu lt [facility] [address] [place] [address] * MR NEURO OUTSIDE IMAGES (03/31/2025 8:04 AM EDT) Anatomical Region Laterality Modality Magnetic Resonan ce 03/31/2025 8:04 AM EDT us External Provider IMG MRI PROCEDURES Final Resul t * Dexa Bone Density (01/09/2024 4:11 PM EST) Anatomical Region Laterality Modality L-spine Radiographic Jacqui ging Narrative 01/11/2024 2:27 PM EST [facility] - [facility] [address] [place] [address] DXA Bone Densitometry Report: [DAY/DATE] BMD test performed using the LomakiXA DXA System (analysis version: 14.10) manufactured by [employer]. REFERRING PROVIDER: Dr. Castillo, Enmanuel Heller MD CLINICAL INFORMATION: PATIENT NAME: Myriam Hayward PATIENT AGE: 73 y.o. LEGAL SEX: female RADIOGRAPHIC VIEWS: Sites scanned: AP Spine, HIP Right , HIP Left, and TBS COMPARISON STUDY: DXA Axial 2017. TBS Prior studies are not available for comparison. FINDINGS: Based on WHO criteria (post-menopausal female) the diagnosis is Osteoporosis The lowest T score is -3.0 in the Right Hip There is Decline compared to prior measurements The presence of arthritic or degenerative joint changes in the spine could artefactually increase measured BMD. TBS: The TBS L1-L4 of 1.177 indicates degraded microarchitecture TREATMENT RECOMMENDATIONS: Measured bone density crosses threshold for treatment of osteoporosis Specific anti-osteoporotic therapy remains indicated given high risk of future fracture Treatment decisions should be based on clinical indications. Suggest general measures to optimize calcium and vitamin D status, fall prevention measures and reduce fracture risk. Consider repeating this study in one year or as clinically indicated to assess bone density change or response to treatment. us Enmanuel Castillo MD IMG DXA PROCEDURES Final Resu lt from Last 3 Months or Most Recently Relevant to Health Maintenance Insurance [place] MEDICARE Care Teams Binman Relationship Specialty Start Date End Date Liliana Gar APRN [address] [place] [address] PCP - General 02/23/25
--- OUTSIDE RECORDS SUMMARY | 2025-06-17 08:36 | XMS_ITS | Encounter Summary ---
Author Organization [facility] Address [address] [place] [address] Care Team Providers Care Pellet Mill Operator Name Role Phone Liliana Gar YURIY Primary Care Provider [phone] Encounter Details Date Type Department Care Team ([facility] st Contact Info) Description 05/10/2025 Telephone [facility] Nephrology, Bone & Mineral Metabolism [address] [facility] [address], [address] [place] [address] Yaima Cuellar, PharmD [address] [facility] [address] [place] [address] Social History Tobacco Use Types [...] encounter Miscellaneous Notes * Telephone Encounter - Yaima Cuellar, PharmD - 05/10/2025 3:21 PM EDT Order for Aranesp 40mcg monthly routed to [facility]. She has gone to PCP in [place] with [facility] for administration in past. Explained the medication ordered (Aranesp) is slightly different thanEpoetin products she received in the past, medication will be delivered as a prefilled syringe. Discussed it is longer acting than epoetin, making it better for monthly administration. She expressed understanding and is agreeable. Will repeat CBC ~1 month after starting, she would like to have drawn through [facility] in [place]. Will follow-up to coordinate labs closer to date needed so lab order canbe faxed. Christy MoralesD, BCACP Clinical Pharmacist Nephrology Clinic * Progress Notes - Yaima Cuellar, PharmD - 05/10/2025 11:30 AM EDT Myriam Hayward saw Dr. Castillo today. She was previously receiving Epoetin 20,000 units every 30 days, administered by one of her providers in [place]. Unclear when/why medication was discontinued, would like to resume KALINA at this time. Given frequency monthly dosing preferred, will order Aranesp (darbepoetin) 40mcg which is longer acting than epoetin. Pt requests Rx be filled through [facility], will send initial Rx to [facility] for BI before sending to mailorder pharmacy for dispensing. Relevant Lab Results are as follows: HGB (g/dL) Date Value 05/06/2025 8.3 (L) 01/11/2025 9.4 (L) 09/28/2024 8.8 (L) HCT (%) Date Value 05/06/2025 28.0 (L) 01/11/2025 29.8 (L) 09/28/2024 28.9 (L) Ferritin, Serum (ng/mL) Date Value 01/11/2025 641 (H) Transferrin Saturation (%) Date Value 01/11/2025 20 Yaima Cuellar, ChristyD, BCACP Clinical Pharmacist Nephrology Clinic documented in this encounter Plan of Treatment Upcoming Encounters Date Type Department Care Team (Late st Contact Info) Description 09/06/2025 9:45 AM EDT Office Visit [facility] Medicine Specialties [address], [address] [place] [address] Yareli Puga DO [address] [place] [address] 09/13/2025 2:20 PM EDT Office Visit [facility] Nephrology, Bone & Mineral Metabolism [address] [facility] [address], [address] [place] [address] 10/22/2025 10:45 AM EST Appointment [facility] [address], [address]st [place] [address] 10/22/2025 12:15 PM EST Office Visit [facility] [address], [address]st [place] [address] Yan Rowland MD [address] [place] [address] Scheduled Orders Name Type Priority Associated Diagnoses Orde r Schedule CBC Lab Routine Anemia in other chronic diseases classified elsewhere Stage 4 chronic kidney disease (CMS/HCC) monhtly for 12 Occurrences starting 05/10/2025 until 11/09/2026 documented as of this encounter Visit Diagnoses Diagnosis Anemia in other chronic diseases classified elsewhere- Primary Stage 4 chronic kidney disease (CMS/HCC) documented in this encounter Additional Health Concerns Assessment Noted Time A fall risk assessment has been complete d for the patient 05/10/2025 10:48 AM EDT A Body Mass Index follow-up plan has been documented for the patient 05/06/2025 11:10 AM EDT documented as of this encounter Care Teams Pellet Mill Operator Relationship Specialty Start Date End Date Liliana Gar, CABLE DISPATCHER [address] [place] [address] PCP - General 02/23/25 documented as of this encounter
[2025-06-17 09:13] LABS: Hematocrit 26.6 % (37.0-47.0); Hemoglobin 8.1 g/dL (12.2-16.2); Immature Granulocytes % 0.4 %; Mean Corpuscular HGB Conc 30.5 g/dL (31.8-35.4); Mean Corpuscular Hemoglobin 27.2 pg (27.0-31.2); Mean Corpuscular Volume 89.3 fl (81-99); Nucleated Red Blood Cells % 0 %; Platelet Count 258 K/mm3 (142-424); Red Blood Count 2.98 M/mm3 (4.20-5.40); Red Cell Distribution Width-SD 48.8 fL; White Blood Count 4.6 K/mm3 (4.8-10.8)
== END 2025-06-17 23:59 | disposition home or self-care (01) ==
LOC: LAB 08:34
PROVIDERS: PCP Nurse Practitioner Family; Visit Provider Internal Medicine Nephrology
DX: N18.4 Chronic kidney disease, stage 4 (severe) (principal); D63.8 Anemia in other chronic diseases classified elsewhere
CPT/HCPCS: 36415; 85025

== ENCOUNTER 2025-07-23 08:47 | Outpatient (CLI) | payer MEDICARE, SELFPAY ==
--- OUTSIDE RECORDS SUMMARY | 2025-03-06 17:30 | XMS_ITS ---
Author Organization [facility] D GINNY Address [address] [place] [address] Care Team Providers Care Cloth Hand Name Role Phone Winston Webster Primary Care Provider Migration, Provider Unavailable Unavailable Allergies Allergen (clinical drug ingredient) Drug/Non Drug Allergy documented on EMR Reaction Allergy Type Onset Date Status IV DYES (uncoded) Unknown Allergy Ac tive Latex LATEX (uncoded) Unknown Allergy Acti ve angiotensin-converting enzyme inhibitor (FN) ANDREWS Inhibitors Unknown Drug Allergy Acti ve morphine Morphine Unknown Drug Allergy Active [facility] Conversion Encounter Medications Medication SIG (Take, Route, [...] review and pick correct strength[facility]ulat [facility]. If intended option is [...] tab(s) orally every 6 hours Active Nystatin 594160 UNIT/GM 1 truong applied topically 3 times [...] Active Encounters Encounter Location Date Provider Diagnosis [facility] PED G[place] [address] [facility] [address] [place] [address] 03/06/2025 Provider Migration Recurrent UTI N39.0 Assessments [...] Chacha HAYWARD ADOB:[birth year] (75 yo F)Acc No.[id number]:03/06/2025 Patient: Alejandra ELIZABETHChacha Provider: Yobany Mancera :1950 A ge:75 Y S ex:Female Date:03/06/2025 Address:[facility] [address], [id number] Pcp:Winston Webster Subjective: * Chief Complaints: * 1 . Multum To Medispan Conversion Encounter. * Medical History: * Medications: T aking Nystatin 095122 UNIT/GM Powder 1 truong applied topically 3 [...] Electronic signature of Prov ider Migration on 07/23/2025 at 08:50 AM EDT Sign off status: Pending * Provider: Yobany valderrama Migration Date: 0 03/06/2025 Generated for Printi ng/Ronda/Daviditting on: 0 07/23/2025 08:50 AM EDT
--- OUTSIDE RECORDS SUMMARY | 2025-05-06 10:45 | XMS_ITS | Encounter Summary ---
Author Organization [facility] Address [address] [place] [address] Care Team Providers Care Route Process Administrator Name Role Phone Liliana Gar YURIY Primary Care Provider [phone] Reason for Visit * Reason Comments Follow-up Encounter Details Date Type Department Care Team (Late st Contact Info) Description 05/06/2025 10:45 AM EDT Office Visit [facility] [address] [place] [address] Yareli Puga, DO [address] [place] [address] Systemic lupus erythematosus, organ or [...] EDT Rheumatology follow-up Prior patient, transferred to [facility] 05/06/2025 Patient with SLE diagnosed 20+ years [...] don't live close by. Her daughter has ferryboat operator helper for her through hospice (patient declines dialysis). Plays on games on her tablet, reads, cooks sometimes. Keeps to herself by choice (with neighbors). If she feels depressed, she goes to [employer]. She gets anxious, then can can't breathe, [...] injectable, preservative free 08/21/2013 Moderna COVID-19 Vaccine (Community Health Advisor) 12+ years 01/26/2021, 02/23/2021 Pneumococcal Conjugate PCV 13 08/23/2016 Pneumococcal Polysaccharide PPV23 09/08/2014, 11/17/2019 Time spent: 25 minutes Follow-up: 4 months ADDENDUM: She should be on 300 mg of HCQ, new script sent. documented in this encounter Plan of Treatment Upcoming Encounters Date Type Department Care Team (Late st Contact Info) Description 09/13/2025 2:20 PM EDT Office Visit [facility] [address], [address] [place] [address] 10/22/2025 10:45 AM EST Appointment [facility] [address], [address] [place] [address] 10/22/2025 12:15 PM EST Office Visit [facility] [address] [place] [id number] Yan Rowland MD [address] [place] [address] 11/19/2025 9:45 AM EST [facility] [address] [place] [address] Yareli Puga, DO [address] [place] [address] documented as of this encounter Results * (ABNORMAL) Urinalysis with reflex microscopic (Culture NOT Included) (05/06/2025 11:38 AM EDT) Color, Urine Yellow LAB URINALYSIS - AUTOMATED METHOD 05/06/2025 1:11 PM EDT [facility] Clarity, Urine Cloudy LAB URINALYSIS - AUTOMATED METHOD 05/06/2025 1:11 PM EDT [facility] Spec [place], Urine 1.011 1.005 - 1.030 LAB URINALYSIS - AUTOMATED METHOD 05/06/2025 1:11 PM EDT [facility] pH, Urine 6.5 5.0 - 8.0 LAB URINALYSIS - AUTOMATED METHOD 05/06/2025 1:11 PM EDT [facility] Protein, Urine 100(A) Negative mg/dL LAB URINALYSIS - AUTOMATED METHOD 05/06/2025 1:11 PM EDT [facility] Glucose, Urine Negative Negative mg/dL LAB URINALYSIS - AUTOMATED METHOD 05/06/2025 1:11 PM EDT [facility] Ketones, Urine Negative Negative mg/dL LAB URINALYSIS - AUTOMATED METHOD 05/06/2025 1:11 PM EDT [facility] Blood, Urine Trace(A) Negative LAB URINALYSIS - AUTOMATED METHOD 05/06/2025 1:11 PM EDT [facility] Bilirubin, Urine Negative Negative LAB URINALYSIS - AUTOMATED METHOD 05/06/2025 1:11 PM EDT [facility] Urobilinogen, Urine 0.2 0.2 to 1.0 mg/dL LAB URINALYSIS - AUTOMATED METHOD 05/06/2025 1:11 PM EDT [facility] Leukocytes, Urine Large(A) Negative LAB URINALYSIS - AUTOMATED METHOD 05/06/2025 1:11 PM EDT [facility] Nitrite, Urine Negative Negative LAB URINALYSIS - AUTOMATED METHOD 05/06/2025 1:11 PM EDT [facility] RBC, Urine 1 0 to 3 /HPF LAB URINALYSIS - AUTOMATED METHOD 05/06/2025 1:11 PM EDT [facility] WBC, Urine >50(A) 0 to 5 /HPF LAB URINALYSIS - AUTOMATED METHOD 05/06/2025 1:11 PM EDT [facility] Squamous Epithelial Cells 0 - 2 0 to 5 /HPF LAB URINALYSIS - AUTOMATED METHOD 05/06/2025 1:11 PM EDT [facility] Hyaline Casts 0 - 2 0 to 5 /LPF LAB URINALYSIS - AUTOMATED METHOD 05/06/2025 1:11 PM EDT [facility] Bacteria, Urine Present Negative LAB URINALYSIS - AUTOMATED METHOD 05/06/2025 1:11 PM EDT [facility] Urine Urine specimen obtained by clean catch procedure / Unknown Non-blood Collection / Unknown 05/06/2025 11:38 AM EDT 05/06/2025 11:38 AM EDT Yareli Puga DO LAB URINE ORDERABLES Final Resu lt [facility] [address] [place] [address] * Protein, Random, Urine with Creatinine (05/06/2025 11:38 AM EDT) Protein, Urine 44 mg/dL 05/06/2025 1:14 PM EDT [facility] Creatinine, Urine 74 mg/dL 05/06/2025 1:14 PM EDT [facility] Protein/Creatin ine Ratio 0.6 mg/mg Creat 05/06/2025 1:14 PM EDT [facility] Urine Urine specimen obtained by clean catch procedure / Unknown Non-blood Collection / Unknown 05/06/2025 11:38 AM EDT 05/06/2025 11:38 AM EDT Yareli Puga DO LAB URINE ORDERABLES Final Resu lt Performing Organization Address [facility]/[place] [address] * C4 Complement (05/06/2025 11:27 AM EDT) C4 Complement 20 13 - 36 mg/dL 05/06/2025 1:40 PM EDT [facility] Blood Venous blood specimen / Unknown Venipuncture / Unknown 05/06/2025 11:27 AM EDT 05/06/2025 11:28 AM EDT Yareli [facility] LAB BLOOD ORDERABLES Final Resu lt Performing Organization Address [facility] [place] [address] * C3 Complement (05/06/2025 11:27 AM EDT) C3 Complement 126 84 - 166 mg/dL 05/06/2025 1:40 PM EDT [facility] Blood Venous blood specimen / Unknown Venipuncture / Unknown 05/06/2025 11:27 AM EDT 05/06/2025 11:28 AM EDT Yareli Puga LAB BLOOD ORDERABLES Final Resu lt Performing Organization Address [facility] [place] [address] * Double-Stranded DNA (dsDNA) Antibody, IgG by IFA (05/06/2025 11:27 AM EDT) Double-Strande d DNA (dsDNA) Ab IgG IFA <1:10 <1:10 05/09/2025 5:15 AM EDT [facility] ([facility]) Blood Venous blood specimen / Unknown Venipuncture / Unknown 05/06/2025 11:27 AM EDT 05/06/2025 11:28 AM EDT Narrative [facility] NESSA) - 05/09/2025 5:15 AM EDT INTERPRETIVE INFORMATION: [...] recommendations for testing may be found at https://[employer]/content/zrmfhmsgpa-[email or web address]-jfebkzet. Performed By: [facility] [address] [place] [address] Therapeutic Consultant: Enmanuel Jaime MD, PhD CLIA Number: [id number] [facility] LAB BLOOD ORDERABLES Final Resu lt Performing Organization Address City/[facility]/ZIP Co de Phone Number [facility] ([facility]) [address] [place] [address] * Sedimentation Rate, Automated (05/06/2025 11:27 AM EDT) Pathologist [facility] [place] Sedimentation Rate 16 <30 mm/hr 2024 1:20 PM EDT [facility] Blood Venous blood specimen / Unknown Venipuncture / Unknown 05/06/2025 11:27 AM EDT 05/06/2025 11:28 AM EDT [facility] LAB BLOOD ORDERABLES Final Resu lt [facility] [address] [place] [address] * C-Reactive Protein, Plasma (05/06/2025 11:27 AM EDT) Pathologist [facility] [place] CRP, Plasma <3.0 <=8.0 mg/L 05/06/2025 1:28 PM EDT [facility] Blood Venous blood specimen / Unknown Venipuncture / Unknown 05/06/2025 11:27 AM EDT 05/06/2025 11:28 AM EDT Narrative [facility] - 05/06/2025 1:28 PM EDT This CRP test is appropriate for assessment of infection, systemic inflammation and/or tissue injury. To assess cardiovascular disease risk order high sensitivity CRP (CRPH). us Yareli Puga DO LAB BLOOD ORDERABLES Final Resu lt [facility] [address] [place] [address] * (ABNORMAL) Comprehensive Metabolic Panel, Plasma (05/06/2025 11:27 AM EDT) Glucose, Plasma 94 74 - 99 mg/dL 05/06/2025 1:28 PM EDT [facility] BUN, Plasma 40(H) 8 - 23 mg/dL 05/06/2025 1:28 PM EDT [facility] Creatinine, Plasma 3.36(H) 0.60 - 1.10 mg/dL 05/06/2025 1:28 PM EDT [facility] BUN/Creatinine Ratio 12 05/06/2025 1:28 PM EDT [facility] Sodium, Plasma 138 136 - 145 mmol/L 05/06/2025 1:28 PM EDT [facility] Potassium, Plasma 4.2 3.6 - 4.9 mmol/L 05/06/2025 1:28 PM EDT [facility] Chloride, Plasma 100 97 - 107 mmol/L 05/06/2025 1:28 PM EDT [facility] CO2, Plasma 21(L) 22 - 29 mmol/L 05/06/2025 1:28 PM EDT [facility] Anion Gap 17(H) 6 - 16 mmol/L 05/06/2025 1:28 PM EDT [facility] Total Calcium, Plasma 8.5(L) 8.9 - 10.2 mg/dL 05/06/2025 1:28 PM EDT [facility] Total Protein 6.6 6.3 - 7.9 g/dL 05/06/2025 1:28 PM EDT [facility] Albumin, Plasma 4.0 3.5 - 5.2 g/dL 05/06/2025 1:28 PM EDT [facility] AST, Plasma 19 10 - 35 U/L 05/06/2025 1:28 PM EDT [facility] ALT, Plasma 9(L) 10 - 35 U/L 05/06/2025 1:28 PM EDT [facility] Alkaline Phosphatase, Plasma 90 46 - 142 U/L 05/06/2025 1:28 PM EDT [facility] Total Bilirubin, Plasma 0.2 0.2 - 1.1 mg/dL 05/06/2025 1:28 PM EDT [facility] eGFRcr 13.7 mL/min/1.7 3m*2 05/06/2025 1:28 PM EDT [facility] Comment:Reported eGFRcr in m L/min/1.73m2 is based the CKD-EPI 2020 equation that does not use a race coefficient. Blood Venous blood specimen / Unknown Venipuncture / Unknown 05/06/2025 11:27 AM EDT 05/06/2025 11:28 AM EDT Yareli Puga DO LAB BLOOD ORDERABLES Final Resu lt [facility] [address] [place] [address] * (ABNORMAL) CBC and Differential (05/06/2025 11:27 AM EDT) WBC Count 6.34 3.70 - 10.30 10*3/uL LAB HEMATOLOGY METHOD 05/06/2025 1:07 PM EDT [facility] RBC Count 3.09(L) 3.90 - 5.20 10*6/uL LAB HEMATOLOGY METHOD 05/06/2025 1:07 PM EDT [facility] HGB 8.3(L) 11.2 - 15.7 g/dL LAB HEMATOLOGY METHOD 05/06/2025 1:07 PM EDT [facility] HCT 28.0(L) 34.0 - 45.0 % LAB HEMATOLOGY METHOD 05/06/2025 1:07 PM EDT [facility] Platelet Count 283 155 - 369 10*3/uL LAB HEMATOLOGY METHOD 05/06/2025 1:07 PM EDT [facility] MCV 91 79 - 98 fL LAB HEMATOLOGY METHOD 05/06/2025 1:07 PM EDT [facility] MCH 26.9 26.0 - 32.0 pg LAB HEMATOLOGY METHOD 05/06/2025 1:07 PM EDT [facility] MCHC 29.6(L) 30.7 - 35.5 g/dL LAB HEMATOLOGY METHOD 05/06/2025 1:07 PM EDT [facility] RDW 14.6(H) 11.5 - 14.5 % LAB HEMATOLOGY METHOD 05/06/2025 1:07 PM EDT [facility] MPV 10.0 8.8 - 12.5 fL LAB HEMATOLOGY METHOD 05/06/2025 1:07 PM EDT [facility] nRBC 0.0 <=0.0 per 100 WBCs LAB HEMATOLOGY METHOD 05/06/2025 1:07 PM EDT [facility] Differential Type Automated LAB HEMATOLOGY METHOD 05/06/2025 1:07 PM EDT [facility] Neutrophils % 64 % LAB HEMATOLOGY METHOD 05/06/2025 1:07 PM EDT [facility] Lymphocytes % 23 % LAB HEMATOLOGY METHOD 05/06/2025 1:07 PM EDT [facility] Monocytes % 10 % LAB HEMATOLOGY METHOD 05/06/2025 1:07 PM EDT [facility] Eosinophils % 2 % LAB HEMATOLOGY METHOD 05/06/2025 1:07 PM EDT [facility] Basophils % 1 % LAB HEMATOLOGY METHOD 05/06/2025 1:07 PM EDT [facility] Immature Granulocytes % 0 % LAB HEMATOLOGY METHOD 05/06/2025 1:07 PM EDT [facility] Neutrophils Absolute 4.13 1.60 - 6.10 10*3/uL LAB HEMATOLOGY METHOD 05/06/2025 1:07 PM EDT [facility] Lymphocytes Absolute 1.43 1.20 - 3.90 10*3/uL LAB HEMATOLOGY METHOD 05/06/2025 1:07 PM EDT [facility] Monocytes Absolute 0.60 0.30 - 0.90 10*3/uL LAB HEMATOLOGY METHOD 05/06/2025 1:07 PM EDT [facility] Eosinophils Absolute 0.12 0.00 - 0.50 10*3/uL LAB HEMATOLOGY METHOD 05/06/2025 1:07 PM EDT [facility] Basophils Absolute 0.04 0.00 - 0.10 10*3/uL LAB HEMATOLOGY METHOD 05/06/2025 1:07 PM EDT [facility] Immature Granulocytes Absolute 0.02 0.00 - 0.06 10*3/uL LAB HEMATOLOGY METHOD 05/06/2025 1:07 PM EDT [facility] Blood Venous blood specimen / Unknown Venipuncture / Unknown 05/06/2025 11:27 AM EDT 05/06/2025 11:28 AM EDT Narrative [facility] - 05/06/2025 1:07 PM EDT Therapeutic decision making should be based on absolute values, rather than percentages. Yareli Puga DO LAB BLOOD ORDERABLES Final Resu lt [facility] [address] [place] [address] documented in this encounter Visit Diagnoses Diagnosis [...] documented as of this encounter Care Teams Route Process Administrator Relationship Specialty Start Date End Date Liliana Gar APRN [address] [facility] [address] [place] [address] PCP - General 02/23/25 documented as of this encounter
--- OUTSIDE RECORDS SUMMARY | 2025-07-23 08:48 | XMS_ITS ---
Author Name Auto Generated, Auto Generated Organization [facility] Address [address] [place] [address] Phone [phone] Care Team Providers Care Aircraft Charter Dispatcher Name Role Phone Duran Cabrera Unavailable [phone] Gar Liliana sanchez Unavailable [phone] WhReinier ramachandran Unavailable [phone] Winston Webster Unavailable [phone] Functional Status Narrative Start Date End Date Bladder incontinence SatMar 07 08:00:00 EDT Mental Status No Results Allergies and Intolerances Name Onset Date Reaction Severity Latex (Allergy) SatMar 07 17:08:00 EDT 2022 ANDREWS Inhibitors (Allergy) SatMar 07 17:08:00 EDT 2022 morphine (Allergy) SatMar 07 17:08:00 EDT 2022 Halluc inations Moderate [...] SatAug 28 00:00:00 EDT 2022 Yolanda Aug 29 14:54:00 EDT 2022 Xanax 0.25 mg tablet [...] Indication: anxiety Yolanda Mar 21 00:00:00 EDT 2022Aug 14 10:29:00 EDT 2022 acetaminophen 500 mg tablet [...] stage 4 SatMar 07 00:00:00 EDT 2022Nov 01 00:00:00 EST 2022 Treatment Plan Problems No Known Problems Reason for Referral
--- OUTSIDE RECORDS SUMMARY | 2025-07-23 08:48 | XMS_ITS ---
Author Name Auto Generated, Auto Generated Organization [facility] Address [address] [place] [address] Phone [phone] Care Team Providers Care Group Counselor Name Role Phone Duran Cabrera Unavailable [phone] Gar Liliana sanchez Unavailable [phone] WhReinier ramachandran Unavailable Winston Webster Unavailable [phone] Functional Status Narrative Start Date End Date [...]
--- OUTSIDE RECORDS SUMMARY | 2025-07-23 08:49 | XMS_ITS | Encounter Summary ---
Author Organization [facility] Address [address] [place] [address] Care Team Providers Care Band Presser Name Role Phone Winston Webster MD Primary Care Provider [phone] Liliana Gar APRN Primary Care Provider [phone] Encounter Details Date Type Department Care Team (Late Contact Info) Description 06/12/2024 Orders Only External Location [address] [place] [address] Provider, External Social History Tobacco Use Types [...] Department Care Team (Late Contact Info) Description 09/13/2025 2:20 PM EDT Office Visit [facility] Nephrology, Bone & Mineral Metabolism [address], [address] [place] [address] 10/22/2025 10:45 AM EST Appointment [facility] [address], [address]st [place] [address] 10/22/2025 12:15 PM EST Office Visit [place] [facility] [address] [place] [address] Yan Rowland MD [address] [place] [address] 11/19/2025 9:45 AM EST Office Visit [facility] Medicine Specialties [address], [address] [place] [address] Yareli Puga DO [address] [place] [address] documented as of this encounter [...] documented as of this encounter Care Teams Band Presser Relationship Specialty Start Date End Date Winston Webster MD [address] [place] [address] PCP - General 04/14/21 02/22/25 Liliana Gar, YURIY [address] [place] [address] PCP - General 02/23/25 documented as of this encounter
--- OUTSIDE RECORDS SUMMARY | 2025-07-23 08:49 | XMS_ITS | Encounter Summary ---
Author Organization [facility] Address [address] [place] [address] Care Team Providers Care Scrap Stripper Hand Name Role Phone Winston Webster MD Primary Care Provider [phone] Liliana Gar APRN Primary Care Provider [phone] Encounter Details Date Type Department Care Team (Late Contact Info) Description 06/12/2024 Orders Only External Location [address] [place] [address] Provider, External Social History Tobacco Use Types [...] 09/13/2025 2:20 PM EDT Office Visit [facility] Nephrology, Bone & Mineral Metabolism [address] [facility], [address] [place] [address] 10/22/2025 10:45 AM EST Appointment [facility] [address], 1st [place] [address] 10/22/2025 12:15 PM EST Office Visit [place] [facility] [address], [address] [place] [address] Yan Rowland MD [address] [place] [address] 11/19/2025 9:45 AM EST Office Visit [facility] Medicine Specialties [address], [address] [place] [address] Yareli Puga DO [address] [place] [address] documented as of this encounter [...] documented as of this encounter Care Teams Scrap Stripper Hand Relationship Specialty Start Date End Date Winston Webster MD [address] [place] [address] PCP - General 04/14/21 02/22/25 Liliana Gar APRN [address] [place] [address] PCP - General 02/23/25 documented as of this encounter
--- OUTSIDE RECORDS SUMMARY | 2025-07-23 08:49 | XMS_ITS | Encounter Summary ---
Author Organization [facility] Address [address] [place] [address] Care Team Providers Care Rigging And Controls Aircraft Mechanic Name Role Phone Winston Webster MD Primary Care Provider [phone] Liliana Gar APRN Primary Care Provider [phone] Encounter Details Date Type Department Care Team (Late Contact Info) Description 06/12/2024 Orders Only External Location [address] [place] [address] Provider, External Social History Tobacco Use Types [...] EDT Office Visit [facility] Nephrology, Bone & Mineral Metabolism [address] [facility], [address] [place] [address] 10/22/2025 10:45 AM EST Appointment [facility] [address], 1st [place] [address] 10/22/2025 12:15 PM EST Office Visit [place] [facility] [address], [address] [place] [address] Yan Rowland MD [address] [place] [address] 11/19/2025 9:45 AM EST Office Visit [facility] Medicine Specialties [address], [address] [place] [address] Yareli Puga DO [address] [place] [address] documented as of this encounter [...] documented as of this encounter Care Teams Rigging And Controls Aircraft Mechanic Relationship Specialty Start Date End Date Winston Webster MD [address] [place] [address] PCP - General 04/14/21 02/22/25 Liliana Gar APRN [address] [place] [address] PCP - General 02/23/25 documented as of this encounter
--- OUTSIDE RECORDS SUMMARY | 2025-07-23 08:49 | XMS_ITS | Clinical Summary ---
Author Organization [facility] Address [address] [place] [address] Care Team Providers Care Retail Experience Specialist Name Role Phone Unavailable Primary Care Provider Unavailabl e Social History Tobacco Use Types Packs/Day Years Used Date Smoking Tobacco: Never Assessed Abuse Screen Answer Date Recorded Unsafe at Home or Work/School Not on file Feels Threatened by Someone? Not on file 08/2023 Does Anyone Keep You from Co ntacting Others or Doint Things Outside the Home? Not on file 09/09/2023 Physical Sign of Abuse Present Not on file 1 Housing Stability Answer Date Recorded Current Living Arrangements Not on file 08/2023 Potentially Unsafe Housing Conditions Not on raman e 09/09/2023 Family and Community Support Answer Thomas e Recorded Help with Day-to-Day Activities Not on file 09/09/2023 Lonely or Isolated Not on file 09/09/2023 Employment Answer Date Recorded Do you want help finding or keeping work or a asa b? Not on file 09/09/2023 Disabilities Answer Date Recorded Concentrating, Remembering, or Making Decisions Difficulty Not on file 09/09/2023 Doing Errands Independently Difficulty Not on fi le 09/09/2023 Education Answer Date Recorded Help with school or training? Not on file Preferred Language Not on file 09/09/2023 Comments Unknown Sex and Gender Information Value Date Recorded Sex Assigned at Not on file Legal Sex Female 10:47 AM EDT Gender Identity Not on file Sexual Orientation Not on file Plan of Treatment Health Maintenance Due Date Last Done Comments ANNUAL PHYSICAL 1950 DXA SCAN 1950 HEPATITIS C SCREENING 1950 TDAP/TD VACCINES (1 - Tdap) 02/21/1968 Pneumococcal Vaccine 50+ (1 of 1 - PCV) 1999 ZOSTER VACCINE (1 of 2) 1999 RSV Vaccine - Adults (1 - 1-dose 75+ series) 4 COVID-19 Vaccine (2023- season) 2024 INFLUENZA VACCINE 09/01/2025
--- OUTSIDE RECORDS SUMMARY | 2025-07-23 08:49 | XMS_ITS | Encounter Summary ---
Author Organization [facility] Address [address] [place] [address] Care Team Providers Care Power Engineer Name Role Phone Liliana Gar YURIY Primary Care Provider [phone] Reason for Visit * Reason Onset Date Comments HCN - Patient Message 06/02/2025 Cancel Encounter Details Date Type Department Care Team (Late st Contact Info) Description 06/02/2025 Telephone [place] [facility] [address], [address] [place] [address] Roosevelt Blackwood MD [address] [place] [address] HCN - Patient Message (Cancel [...] encounter Miscellaneous Notes * Telephone Encounter - AdolfoFrancesca bowie - 06/02/2025 3:57 PM EDT Appointment cancelled. Pt can contact the clinic if she wishes to reschedule. * Telephone Encounter - Jennifer Xavier - 06/02/2025 3:43 PM EDT Patient Phone Message Reason for Call: Please cancel upcoming appt. Best contact number and optimal time of day to reach caller: [phone] anytime Note: Please do not reply to this message. Follow-up communication and further actions as a result of this message need to be communicated with the patient directly, if the patient is not active onMyChart. If the patient is active on MyChart, they will receive notification of the communication/outcome via [employer]. documented in this encounter Plan of Treatment Upcoming Encounters Date Type Department Care Team (Late st Contact Info) Description 09/13/2025 2:20 PM EDT Office Visit [facility] Nephrology, Bone & Mineral Metabolism [address] [facility] [address] [facility], [address] [place] [address] 10/22/2025 10:45 AM EST Appointment [facility] [address], [address] [place] [address] 10/22/2025 12:15 PM EST Office Visit [facility] [address], [address] [place] [address] Yan Rowland MD [address] [place] [address] 11/19/2025 9:45 AM EST Office Visit [place] [facility] Medicine Specialties [address], [address] [place] [address] Yareli Puga, [address] [place] [address] documented as of this encounter Visit Diagnoses Not on filedocumented in this encounter Additional Health Concerns Assessment Noted Time A fall risk assessment has been complete d for the patient 05/10/2025 10:48 AM EDT A Body Mass Index follow-up plan has been documented for the patient 05/06/2025 11:10 AM EDT documented as of this encounter Care Teams Power Engineer Relationship Specialty Start Date End Date Liliana Gar, PLATE GRINDER [address] [facility] [address] [place] [address] PCP - General 02/23/25 documented as of this encounter
--- OUTSIDE RECORDS SUMMARY | 2025-07-23 08:49 | XMS_ITS | Encounter Summary ---
Author Organization [facility] Address [address] [place] [address] Care Team Providers Care Neonatal Intensive Care Nurse Name Role Phone Winston Webster MD Primary Care Provider [phone] Liliana Gar APRN Primary Care Provider [phone] Encounter Details Date Type Department Care Team (Late Contact Info) Description 06/12/2024 Orders Only External Location [address] [place] [address] Provider, External Social History Tobacco Use Types [...] 09/13/2025 2:20 PM EDT Office Visit [facility] Nephrology, Bone & Mineral Metabolism [address] [facility], [address] [place] [address] 10/22/2025 10:45 AM EST Appointment [facility] [address], 1st [place] [address] 10/22/2025 12:15 PM EST Office Visit [facility] [address], [address] [place] [address] Yan Rowland MD [address] [place] [address] 11/19/2025 9:45 AM EST Office Visit [facility] Medicine Specialties [address], [address] [place] [address] Yareli Puga DO [address] [place] [address] documented as of this encounter [...] documented as of this encounter Care Teams Neonatal Intensive Care Nurse Relationship Specialty Start Date End Date Winston Webster MD [address] [place] [address] PCP - General 04/14/21 02/22/25 Liliana Gar, PEOPLE GREETER [address] [place] [address] PCP - General 02/23/25 documented as of this encounter
--- OUTSIDE RECORDS SUMMARY | 2025-07-23 08:50 | XMS_ITS | Encounter Summary ---
Author Organization [facility] Address [address] [place] [address] Care Team Providers Care Quarter Inspector Name Role Phone Liliana Gar YURIY Primary Care Provider Reason for Referral * Consultation (Routine) - Closed Specialty Diagnoses / Procedures Referred By Gaby presley Referred To Contact Neurosurgery Diagnoses Brain mass Emilee Tejeda MD [address] [facility] [address] [place] [address] Phone: tel: fax: Referral ID Status Reason Start Date Expiration Date V isits Requested Visits Authorized [id number] Closed Specialty Services Required 02/26/2025 08/28/2026 1 1 Encounter Details Date Type Department Care Team (Late st Contact Info) Description 02/26/2025 Community [facility] Community Practice [address] [place] [address] Emilee Tejeda MD [address] [place] [address] Brain mass (Primary Dx) Social History [...] Description 09/13/2025 2:20 PM EDT Office Visit [facility] Nephrology, Bone & Mineral Metabolism [address] [facility], [address] [place] [address] 10/22/2025 10:45 AM EST Appointment [facility] [address], 1st [place] [address] 10/22/2025 12:15 PM EST Office Visit [place] [facility] [address], [address] [place] [address] Yan Rowland MD [address] [place] [address] 11/19/2025 9:45 AM EST Office Visit [facility] Medicine Specialties [address], [address] [place] [address] Yareli Puga DO [address] [place] [address] Scheduled Referrals Name Type Priority [...] documented as of this encounter Care Teams Quarter Inspector Relationship Specialty Start Date End Date Liliana Gar, YURIY [address] [place] [id number] PCP - General 02/23/25 documented as of this encounter
--- OUTSIDE RECORDS SUMMARY | 2025-07-23 08:50 | XMS_ITS | Encounter Summary ---
Author Organization [facility] Address [address] [place] [address] Care Team Providers Care Lobby Concierge Name Role Phone Liliana Gar YURIY Primary Care Provider [phone] Reason for Visit * Reason Comments Med Refill Encounter Details Date Type Department Care Team ([facility] st Contact Info) Description 06/10/2025 Refill [facility] Nephrology, Bone & Mineral Metabolism [address] [facility], [address] [place] [address] Lena Leon MD [address] [place] [phone] Social History Tobacco Use Types Packs/Day Years [...] Description 09/13/2025 2:20 PM EDT Office Visit [facility] Nephrology, Bone & Mineral Metabolism [address] [facility], [address] [place] [address] 10/22/2025 10:45 AM EST Appointment [facility] [address], [address]st [place] [address] 10/22/2025 12:15 PM EST Office Visit [place] [facility] [address], [address] [place] [address] Yan Rowland MD [address] [place] [address] 11/19/2025 9:45 AM EST Office Visit [facility] Medicine Specialties [address], [address] [place] [address] Yareli Puga DO [address] [place] [address] documented as of this encounter Visit Diagnoses Not on filedocumented in this encounter Additional Health Concerns Assessment Noted Time A fall risk assessment has been complete d for the patient 05/10/2025 10:48 AM EDT A Body Mass Index follow-up plan has been documented for the patient 05/06/2025 11:10 AM EDT documented as of this encounter Care Teams Lobby Concierge Relationship Specialty Start Date End Date Liliana Gar APRN [address] [place] [address] PCP - General 02/23/25 documented as of this encounter
--- OUTSIDE RECORDS SUMMARY | 2025-07-23 08:50 | XMS_ITS | Patient Health Record ---
Author Organization [facility] Address [address] [place] [address] Care Team Providers Care Director Of Blood Name Role Phone Winston Webster Primary Care Provider [phone] [place], Liliana Unavailable [phone] Migration, Provider Unavailable Unavailable Allergies Allergen (clinical drug ingredient) Drug/Non Drug Allergy documented on EMR Reaction Allergy Type Onset Date Status IV DYES (uncoded) Unknown Allergy Ac tive Latex LATEX (uncoded) Unknown Allergy Acti ve angiotensin-converting enzyme inhibitor (FN) ANDREWS Inhibitors Unknown Drug Allergy Acti ve morphine Morphine Unknown Drug Allergy Active Results Component Value Reference Range Notes COMPREHENSIVE METABOLIC PANE L (16938) Reviewed date:05/19/2025 10:59:23 AM Interpretation: Performing Lab:[facility], [id number] [facility], [facility]tfy[facility] Olivier Albert Notes/Report: NON-FASTING; NON-FASTING; NON-FASTING GLUCOSE [...] Reviewed date:05/19/2025 10:59:23 AM Interpretation: Performing Lab:CB, [employer] [address], [place] Olivier Albert Notes/Report: NON-FASTING; NON-FASTING; NON-FASTING WHITE [...] MPV 9.7 7.5-12.5 fL ABSOLUTE NEUTROPHILS 4762 7897-9256 cells/uL ABSOLUTE LYMPHOCYTES 6437 448-8786 cells/uL ABSOLUTE MONOCYTES 531 200-950 cells/uL ABSOLUTE EOSINOPHILS 32 15-500 cells/uL ABSOLUTE BASOPHILS 32 0-200 cells/uL NEUTROPHILS 74.4 LYMPHOCYTES 16.3 MONOCYTES 8.3 EOSINOPHILS 0.5 BASOPHILS 0.5 TSH W/REFLEX TO FT4 (02127) Reviewed date:05/19/2025 10:59:23 AM Interpretation: Performing Lab:JOSÉ LUIS, [facility] [address], [place] Olivier Albert Notes/Report: NON-FASTING; NON-FASTING; NON-FASTING NON-FASTING; NON-FASTING; NON-FASTING TSH W/REFLEX TO FT4 0.11 0.40-4.50 mIU/L T4, FREE 1.0 0.8-1.8 ng/dL Reason For Referral Reason Neurology - Dr. Key altamirano Call Daughter to Schedule appt/ Kellee [phone] Diagnosis 1 Brain lesion (G93.9) Referral Organization [facility] Referring Provider First Name Liliana Referring Provider Last Name Robbie Referring Provider Speciality [facility] ctice Referred Organization [facility] Referred Address [address] [facility] [facility], [place], [place],[address], Referred Provider Specialty Neurology General Notes Amanda Rae 2023 03:11:02 PM >Referral sent to Dr. Tejeda Referral Priority Routine Reason Medication Managment with [facility] Diagnosis 1 Brain lesion (G93.9) Diagnosis 2 Urinary incontinence , unspecified type (R32) Diagnosis 3 Psychophysiologic in somnia (F51.04) Diagnosis 4 Chronic kidney disea se, stage 4 (severe) (N18.4) Diagnosis 5 Lupus erythematosus (L93.0) Referral Organization [facility] Referring Provider First Name Liliana Referring Provider Last Name Robbie [facility] Priority Routine Reason Needs [employer] sport[employer] scheduled for Rheumatology [address] Referral Organization [facility] Referring Provider First Name Winston Referring Provider Last Name Darin Referring Provider Speciality Internal M edicine Referred Provider Specialty Transportati on General Notes Amanda Rae 2024 10:40:55 AM >waiting on form Referral Priority Routine Referral Appointment Date 05/06/2025 Reason wheelchair Diagnosis 1 Weakness (R53.1) Referral Organization [facility] Referring Provider First Name Liliana Referring Provider Last Name Robbie Ref[facility] Referred Provider Specialty DME General Notes Amanda Rae 2024 01:00:49 PM >Has [employer] HMO can't do Romy- sent to [facility] Referral Priority Routine Medications Medication SIG (Take, [...] Immunizations Vaccine Route Administration Date Status Comme nts Covid Moderna Unknown 01/26/2021 Administered Covid Moderna Unknown 02/23/2021 Administered Fluzone High Dose IM Intramuscular 07/22/2018 Administered Fluzone High Dose IM Intramuscular 08/18/2019 Administered Fluzone High Dose IM Intramuscular 09/06/2020 Administered Fluzone High Dose IM Intramuscular 09/19/2021 Administered Fluzone High Dose IM Intramuscular 09/04/2022 Administered Fluzone High Dose IM Intramuscular 10/04/2023 Administered Influenza (Fluzone)--Medicare only IM Intramuscular 09/20/2015 Administered Influenza (Fluzone)--Medicare only IM Intramuscular 08/23/2016 Administered Influenza (Fluzone)--Medicare only IM Intramuscular 08/13/2017 Administered Pneumovax 23 IM Intramuscular 11/17/2019 Administered Prevnar PCV-13 (Pneumococcal conjugate 13) IM Intramuscular 08/23/2016 Administered Problems Problem Type SNOMED Code ICD Code Onset Dates Problem Status W/U Status Risk Notes Problem Hypocalcemia (8539032) Hypocalcemia (E83.51) Active confirmed Problem Psychophysiologic insomnia (396770567) Psychophysiologic insomnia (F51.04) Active confirmed Problem Chronic pain (00105325) Other chronic pain (G89.29) Active confirmed Problem 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) Active confirmed Problem Irritable bowel syndrome with diarrhea (137548554) Irritable bowel syndrome with diarrhea (K58.0) Active confirmed Problem 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) Active confirmed Problem Osteoporosis (87618759) Other osteoporosis without current pathological fracture (M81.8) Active confirmed Problem Chronic kidney disease stage 4 (293909274) Chronic kidney disease, stage 4 (severe) (N18.4) Active confirmed Problem Disorder of kidney and/or ureter (250781769) Other specified disorders of kidney and ureter (N28.89) Active confirmed Problem Mixed anxiety and depressive disorder (668230587) Depression with anxiety (F41.8) Active confirmed Problem Hypothyroidism (31795471) Hypothyroidism (acquired) (E03.9) Active confirmed Problem Neuropathy (812209843) Neuropathy (G62.9) Active confirmed Problem Essential hypertension (01103749) Essential hypertension (I10) Active confirmed Problem Seasonal allergy (657215028) Seasonal allergies (J30.2) Active confirmed Problem Arthropathy (690063314) Arthritis involving multiple sites (M12.9) Active confirmed Problem Gastroesophageal reflux disease without esophagitis (431927791) Gastroesophageal reflux disease without esophagitis (K21.9) Active confirmed Problem Abnormal mammogram (703832267) Abnormal mammogram (R92.8) Active confirmed Problem Lesion of brain (318471965) Brain lesion (G93.9) Active confirmed Problem Lupus erythematosus (570297260) Lupus erythematosus (L93.0) Active confirmed Problem Dyspnea on exertion (43091013) Dyspnea on exertion (R06.09) Active confirmed Problem Bilateral tinnitus (2969500458244) Tinnitus of both ears (H93.13) Active confirmed Problem Generalized anxiety disorder (48450369) ANGE (generalized anxiety disorder) (F41.1) Active confirmed Problem Chronic kidney disease stage 4 (255125357) Chronic kidney disease, stage IV (severe) (N18.4) Active confirmed Problem Lupus nephritis (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) 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) Active confirmed Problem Moderate recurrent major depression (86228898) Moderate episode of recurrent major depressive disorder (F33.1) Active confirmed Problem Allergic rhinitis caused by pollen (13250683) Seasonal allergic rhinitis due to pollen (J30.1) Active confirmed Problem Essential tremor (900142918) Tremor, essential (G25.0) Active confirmed Problem Anemia of chronic disease (337456634) Anemia, chronic disease (D63.8) Active confirmed Problem Urinary incontinence (277715206) Urinary incontinence, unspecified type (R32) Active confirmed Problem Seasonal allergic rhinitis (428966822) Acute seasonal allergic rhinitis (J30.2) Active confirmed Problem Osteoarthritis of knee (906484627) Localized osteoarthritis of knees, bilateral (M17.0) Active confirmed Problem Acute systolic heart failure (114664690) Acute systolic congestive heart failure (I50.21) Active confirmed Problem COVID-19 (404107846) COVID-19 (U07.1) Active confirmed Problem Chronic kidney disease stage 5 (334350321) Chronic kidney failure, stage 5 (N18.5) Active confirmed Vital Signs Heart Rate 78 /min 05/17/2025 Temperature 98.2 degrees Fahrenheit 05/17/2025 Blood pressure diastolic 84 mm Hg 05/17/2025 Height 61 in 05/17/2025 Blood pressure systolic 158 mm Hg 05/17/2025 Weight 120 lbs 05/17/2025 BMI 22.67 kg/m2 05/17/2025 Encounters Encounter Location Date Provider Diagnosis [facility] [address] [place], [place] [address] 03/06/2025 Provider Migration Recurrent UTI N39.0 [facility] [address] [facility] [address] [place] [address] 05/17/2025 Liliana McNees Hypothyroidism (acquired) E03.9 ; [...] anxiety disorder) F41.1 and Essential hypertension I10 [facility] [address] [address] 07/29/2024 Liliana McNees [facility] [address] [address] 08/24/2024 Liliana McNees [facility] [address] [place] [address] 10/05/2024 Winston Besson [facility] [address] [place] [address] 10/08/2024 Liliana McNees [facility] [address] [place] [address] 05/17/2025 Liliana McNees [facility] [address] [facility] [address] [place] [address] 05/17/2025 Liliana McNees [facility] [address] [address] 05/19/2025 Winston Besson Assessments Encounter Date Diagnosis [...] Without Contrast 2011 Ultrasound : Breast, Right 10/16/2021 Ultrasound : Breast, Right 07/03/2013 Bone Density 08/16/2015 Mammogram : Diagnostic 09/19/2021 DEXA Hip and Spine - Screening 5 MRA : Head 06/26/2024 Cardiolite, Adenosine 03/23/2013 Mammogram : Bilateral 08/16/2015 Mammogram : Bilateral 01/10/2021 Mammogram : Bilateral 09/06/2020 C-CBC 03/24/2020 C-CMP 03/24/2020 C-CMP 02/07/2021 C-TSH 03/24/2020 C-VITAMIN B12 03/24/2020 C-THYROID PROFILE 03/12/2017 C-THYROID PROFILE 04/28/2019 C-URINE CULTURE 03/05/2019 C-VITAMIN D, 25-HYDROXY 03/24/2020 VENIPUNCT, ROUTINE* 03/13/2016 Culture, Urine 05/16/2022 Culture, Urine 09/04/2022 Future Test Test Name Order Date M-Complete Blood Count Auto Diff 019 M-Comprehensive Metabolic Panel 08/10/20 19 Insurance Providers Payer Name Payer Address Payer Phone Subscriber Number Group Number Insured Name Patient Relationship to Insured Coverage Start Date Coverage End Date [employer] MED[employer]ARE DUAL [address] [address] [place] [address] [id number] Chacha Hayward Self - patient is the insured Medications [...] 2021 CHF Surgical History Surgery Date(Month/Year) MERI 1979' Benign lung tumor Right foreram ORIF Bilateral cataract excisions Hemmorhoids 2012 Hospitalization History Reason Date(Month/Year) [facility] for 10 day 06/2022 UTI , blood work 05/2022 UTI 06/2021 ELINA 06/2020 pneumonia 04/2020 dehydration 09/2017 fluid 2009
--- OUTSIDE RECORDS SUMMARY | 2025-07-23 08:50 | XMS_ITS | Encounter Summary ---
Author Organization [facility] Address [address] [place] [address] Care Team Providers Care Multimedia Editor Name Role Phone Winston Webster MD Primary Care Provider [phone] Liliana Gar APRN Primary Care Provider [phone] Reason for Visit * Reason Comments Med Refill Encounter Details Date Type Department Care Team (Late st Contact Info) Description 05/04/2022 Refill [facility] [address] [place] [address] Enmanuel Castillo MD [address] [place] [address] Social History Tobacco Use Types Packs/Day [...] 09/13/2025 2:20 PM EDT Office Visit Professional [facility] Nephrology, Bone & Mineral Metabolism [address] [facility], [address] [place] [address] 10/22/2025 10:45 AM EST Appointment [facility] [address] [place] [address] 10/22/2025 12:15 PM EST [facility] Visit [facility] [address] [place] [address] Yan Rowland MD [address] [place] [address] 11/19/2025 9:45 AM EST Office Visit [facility] Medicine Specialties [address], [address] [place] [address] Yareli Puga DO [address] [place] [address] documented as of this encounter Visit Diagnoses Not on filedocumented in this encounter Additional Health Concerns Assessment Noted Time A fall risk assessment has been complete d for the patient 11/28/2021 1:17 PM EST documented as of this encounter Care Teams Multimedia Editor Relationship Specialty Start Date End Date Winston Webster MD [address] [place] [address] PCP - General 04/14/21 02/22/25 Liliana Gar, YURIY [address] [place] [address] PCP - General 02/23/25 documented as of this encounter
--- OUTSIDE RECORDS SUMMARY | 2025-07-23 08:50 | XMS_ITS | Clinical Summary ---
Author Organization [facility] Address [address] [place] [address] Care Team Providers Care Audience Coordinator Name Role Phone Liliana Gar BOOSTER PUMP OILER Primary Care Provider [phone] Allergies Active Allergy Reactions Criticality Noted Date [...] mouth every 4 (four) hours if needed. 0 Active busPIRone (Buspar) 10 MG tablet Take by mouth 2 (two) times a day. 0 Active fluticasone (Flonase) 50 MCG/ACT nasal spray 05/03/20 2 0 Active mirtazapine (Remeron) 15 MG tablet 0 Active ALPRAZolam (Xanax) 0.25 MG tablet 2 Active dicyclomine (Bentyl) 10 MG capsule Take 1 capsule (10 mg) by mouth 2 (two) times a day. 2 Active Calcium Polycarbophil (FIBER-CAPS PO) Take by mouth. Active Fiber 500 MG capsule Take by mouth. Active omeprazole (PriLOSEC) [address] capsule 3 Active ondansetron (Zofran) 4 MG tablet Take by mouth. 3 Active levothyroxine (Synthroid, Levoxyl) 150 MCG tablet 4 Active Imitrex 100 MG tablet Take 1 tablet (100 mg) by mouth 1 (one) time if needed for migraine. 4 Active Rimegepant Sulfate (Nurtec) 75 MG orally disintegrating tablet Take 1 tablet (75 mg) by mouth every other day. 4 Active doxepin (SINEquan) 10 MG capsule Take 1-2 capsules (10-20 mg) by mouth at night if needed for sleep. 180 capsule 3 4 Active sertraline (Zoloft) 25 MG tablet Take 1 tablet (25 mg) by mouth 1 (one) time each day. 90 tablet 3 5 01/11/20 26 Active sodium bicarbonate 650 MG tablet Take 2 tablets by mouth 2 times a day. 360 tablet 3 5 Active NIFEdipine XL (Procardia XL) 30 MG 24 hr tabletIndications:B enign essential hypertension Take 1 tablet by mouth daily. Do not crush, chew, or split. 90 tablet 3 5 Active mycophenolate (Cellcept) 500 MG tabletIndications:S ystemic lupus erythematosus, organ or system involvement unspecified (CMS/HCC) TAKE 1 TABLET TWICE DAILY 180 tablet 3 5 Active Hydroxychloroquine Sulfate 300 MG tabletIndications:S ystemic lupus erythematosus, organ or system involvement unspecified (CMS/HCC) Take 300 mg by mouth daily. 90 tablet 5 Active cholecalciferol (Vitamin D-3) 50 MCG (1999 [place]) capsule TAKE 1 CAPSULE EVERY DAY 90 capsule 3 5 Active darbepoetin alondra (Aranesp) 60 MCG/0.3ML solution prefilled syringe Inject 0.3 mL under the skin every 28 days. 0.3 mL 3 5 Active Active Problems Problem Noted Date Diagnosed Date [...] Date Type Department Care Team Description 06/10/2025 [facility] Nephrology, Bone & Mineral Metabolism [address], [address] [place] [phone] Lena Leon MD [facility] [address] [place] [address] Tea Hagen MD Systemic lupus erythematosus, organ or system involvement unspecified ([facility]/HCC) 06/02/2025 [facility] [address], [address] [place] [address] Roosevelt Blackwood MD HCN - Patient Message (Cancel ) 05/16/2025 Refill [facility] Medicine Specialties [address], [address] [place] [address] Dave Moran MD Systemic lupus erythematosus, organ or system involvement unspecified (CMS/HCC) (Primary Dx) 05/10/2025 11:00 AM EDT Office Visit [facility] Nephrology, Bone & Mineral Metabolism [address], [address] [place] [address] Enmanuel Castillo MD Anemia in other chronic diseases classified elsewhere (Primary Dx); Benign essential hypertension; Stage 4 chronic kidney disease (CMS/HCC) 05/10/2025 Telephone [facility] Nephrology, Bone & Mineral Metabolism [address], [address] [place] [address] Yaima Cuellar, PharmD 05/10/2025 Travel 05/06/2025 10:45 AM EDT Office Visit [facility] Specialties [address] [place] [address] Yareli Puga DO Systemic lupus erythematosus, organ or system involvement unspecified (CMS/HCC) (Primary Dx); Stage 4 chronic kidney disease ([facility]/HCC) 05/06/2025 Telephone [facility] Nephrology, Bone & Mineral Metabolism [address], [address] [place] [address] Enmanuel Castillo MD 05/06/2025 Telephone [facility] Bone & Mineral Metabolism [address], [address] [place] [address] Kymberly Champion, MARBLEIZING MACHINE TENDER 05/06/2025 Travel 05/03/2025 Travel 04/29/2025 Travel from Last 3 Months Immunizations Immunization Administration [...] David Hypertension Father David Breast cancer Mother Houston Diabetes Mother [place] Hypertension Mother [place] Lung cancer Mother [place] Skin cancer Mother [place] Alcohol abuse Other 1 Cancer Other 2 [...] 09/13/2025 2:20 PM EDT Office Visit Professional [employer] [facility] Nephrology, Bone & Mineral Metabolism [address], [address] [place] [address] 10/22/2025 10:45 AM EST Appointment [facility] [address] [place] [address] 10/22/2025 12:15 PM EST Office Visit [place] [facility] [address] [place] [address] Yan Rowland MD [address] [place] [address] 11/19/2025 9:45 AM EST Office Visit [facility] Medicine Specialties [address] [place] [address] Yareli Puga DO [address] [place] [address] Health Maintenance Due Date Last Done Comments [facility]-Hepatitis C Screening 1950 [facility]-Medicare Annual Wellness (AWV) 1950 [facility]-/Child/Adol SDOH Screenings 1950 [facility]- SDOH Screenings 1967 [facility]-Adult SDOH Screenings 1967 [facility]-DTaP,Tdap,and Td Vaccines (1 - Tdap) 02/21/1968 [facility]-Zoster Vaccines (1 of 2) 02/21/1968 [id number] Vaccine (3 - Moderna risk series) 03/23/2021 [...] (CMS/HCC) Stage 4 chronic kidney disease (CMS/HCC) DEXA BONE DENSITY Routine 01/09/2024 4:1 1 [...] ORDERABLES Final Resu lt Performing Organization Address [facility] de Phone Number [facility] [address] [place] [address] * (ABNORMAL) Albumin-creatinine ratio, urine, random (05/06/2025 11:38 AM EDT) Microalbumin, Urine 20.56(H) <1.9 mg/dL 05/06/2025 1:14 PM EDT [facility] Creatinine, Urine 74 mg/dL 05/06/2025 1:14 PM EDT [facility] Albumin/Creat inine Ratio 278(H) 0 - 30 mg/g creatinine 05/06/2025 1:14 PM EDT [facility] Urine Urine specimen obtained by clean catch procedure / Unknown Non-blood Collection / Unknown 05/06/2025 11:38 AM EDT 05/06/2025 11:38 AM EDT us Enmanuel Castillo MD LAB URINE ORDERABLES Final Re sult Performing Organization Address [facility]/ZIP Co de Phone Number [facility] [address] [place] [address] * Protein, Random, Urine with Creatinine (05/06/2025 11:38 AM EDT) Protein, Urine 44 mg/dL 05/06/2025 1:14 PM EDT [facility] Creatinine, Urine 74 mg/dL 05/06/2025 1:14 PM EDT [facility] Protein/Creatin ine Ratio 0.6 mg/mg Creat 05/06/2025 1:14 PM EDT [facility] Urine Urine specimen obtained by clean catch procedure / Unknown Non-blood Collection / Unknown 05/06/2025 11:38 AM EDT 05/06/2025 11:38 AM EDT us Yareli Puga DO LAB URINE ORDERABLES Final Resu lt [facility] [address] [place] [address] * (ABNORMAL) Urinalysis with reflex microscopic (Culture NOT Included) (05/06/2025 11:38 AM EDT) Color, Urine Yellow LAB URINALYSIS - AUTOMATED METHOD 05/06/2025 1:11 PM EDT [facility] Clarity, Urine Cloudy LAB URINALYSIS - AUTOMATED METHOD 05/06/2025 1:11 PM EDT [facility] Spec [place], Urine 1.011 1.005 - 1.030 LAB URINALYSIS - AUTOMATED METHOD 05/06/2025 1:11 PM EDT [facility] pH, Urine 6.5 5.0 - 8.0 LAB URINALYSIS - AUTOMATED METHOD 05/06/2025 1:11 PM EDT [facility] Protein, Urine 100(A) Negative mg/dL LAB URINALYSIS - AUTOMATED METHOD 05/06/2025 1:11 PM EDT [facility] Glucose, Urine Negative Negative mg/dL LAB URINALYSIS - AUTOMATED METHOD 05/06/2025 1:11 PM EDT [facility] Ketones, Urine Negative Negative mg/dL LAB URINALYSIS - AUTOMATED METHOD 05/06/2025 1:11 PM EDT [facility] Blood, Urine Trace(A) Negative LAB URINALYSIS - AUTOMATED METHOD 05/06/2025 1:11 PM EDT [facility] Bilirubin, Urine Negative Negative LAB URINALYSIS - AUTOMATED METHOD 05/06/2025 1:11 PM EDT [facility] Urobilinogen, Urine 0.2 0.2 to 1.0 mg/dL LAB URINALYSIS - AUTOMATED METHOD 05/06/2025 1:11 PM EDT [facility] Leukocytes, Urine Large(A) Negative LAB URINALYSIS - AUTOMATED METHOD 05/06/2025 1:11 PM EDT [facility] Nitrite, Urine Negative Negative LAB URINALYSIS - AUTOMATED METHOD 05/06/2025 1:11 PM EDT [facility] RBC, Urine 1 0 to 3 /HPF LAB URINALYSIS - AUTOMATED METHOD 05/06/2025 1:11 PM EDT [facility] WBC, Urine >50(A) 0 to 5 /HPF LAB URINALYSIS - AUTOMATED METHOD 05/06/2025 1:11 PM EDT [facility] Squamous Epithelial Cells 0 - 2 0 to 5 /HPF LAB URINALYSIS - AUTOMATED METHOD 05/06/2025 1:11 PM EDT [facility] Hyaline Casts 0 - 2 0 to 5 /LPF LAB URINALYSIS - AUTOMATED METHOD 05/06/2025 1:11 PM EDT [facility] Bacteria, Urine Present Negative LAB URINALYSIS - AUTOMATED METHOD 05/06/2025 1:11 PM EDT [facility] Urine Urine specimen obtained by clean catch procedure / Unknown Non-blood Collection / Unknown 05/06/2025 11:38 AM EDT 05/06/2025 11:38 AM EDT Yareli Puga DO LAB URINE ORDERABLES Final Resu lt [facility] [address] [place] [address] * Double-Stranded DNA (dsDNA) Antibody, IgG by IFA (05/06/2025 11:27 AM EDT) Double-Strande d DNA (dsDNA) Ab IgG IFA <1:10 <1:10 05/09/2025 5:15 AM EDT [facility] ([facility]) Blood Venous blood specimen / Unknown Venipuncture / Unknown 05/06/2025 11:27 AM EDT 05/06/2025 11:28 AM EDT Narrative [facility]) - 05/09/2025 5:15 AM EDT INTERPRETIVE INFORMATION: [...] recommendations for testing may be found at [email or web address]. Performed By: [employer] [address] [place] [address] [employer] Farmer: Enmanuel Jaime MD, PhD CLIA Number: [id number] Yraeli Puga LAB BLOOD ORDERABLES Final Resu lt [facility] ([facility]) [address] [place], [place] [id number] * Vitamin D 25 Hydroxy (05/06/2025 11:27 AM EDT) Vitamin D 25 Hydroxy 48.3 20.0 - 80.0 ng/mL 05/06/2025 2:29 PM EDT [facility] Blood Venous blood specimen / Unknown Venipuncture / Unknown 05/06/2025 11:27 AM EDT 05/06/2025 11:28 AM EDT Narrative [facility] - 05/06/2025 2:29 PM EDT Testing performed on Prasad Machine Heel Builder, standardized against NIST SRM 2972. When testing [...] ORDERABLES Final Re sult Performing Organization Address [facility]/ZIP Co de Phone Number [facility] [address] [place] [address] * Sedimentation Rate, Automated (05/06/2025 11:27 AM EDT) Sedimentation Rate 16 <30 mm/hr 2024 1:20 PM EDT [facility] Blood Venous blood specimen / Unknown Venipuncture / Unknown 05/06/2025 11:27 AM EDT 05/06/2025 11:28 AM EDT us Yareli Puga DO LAB BLOOD ORDERABLES Final Resu lt Performing Organization Address [facility] Co de Phone Number [facility] [address] [place] [address] * (ABNORMAL) CBC and Differential (05/06/2025 11:27 AM EDT) WBC Count 6.34 3.70 - 10.30 10*3/uL LAB HEMATOLOGY METHOD 05/06/2025 1:07 PM EDT [facility] RBC Count 3.09(L) 3.90 - 5.20 10*6/uL LAB HEMATOLOGY METHOD 05/06/2025 1:07 PM EDT [facility] HGB 8.3(L) 11.2 - 15.7 g/dL LAB HEMATOLOGY METHOD 05/06/2025 1:07 PM EDT [facility] HCT 28.0(L) 34.0 - 45.0 % LAB HEMATOLOGY METHOD 05/06/2025 1:07 PM EDT [facility] Platelet Count 283 155 - 369 10*3/uL LAB HEMATOLOGY METHOD 05/06/2025 1:07 PM EDT [facility] MCV 91 79 - 98 fL LAB HEMATOLOGY METHOD 05/06/2025 1:07 PM EDT [facility] MCH 26.9 26.0 - 32.0 pg LAB HEMATOLOGY METHOD 05/06/2025 1:07 PM EDT [facility] MCHC 29.6(L) 30.7 - 35.5 g/dL LAB HEMATOLOGY METHOD 05/06/2025 1:07 PM EDT [facility] RDW 14.6(H) 11.5 - 14.5 % LAB HEMATOLOGY METHOD 05/06/2025 1:07 PM EDT [facility] MPV 10.0 8.8 - 12.5 fL LAB HEMATOLOGY METHOD 05/06/2025 1:07 PM EDT [facility] nRBC 0.0 <=0.0 per 100 WBCs LAB HEMATOLOGY METHOD 05/06/2025 1:07 PM EDT [facility] Differential Type Automated LAB HEMATOLOGY METHOD 05/06/2025 1:07 PM EDT [facility] Neutrophils % 64 % LAB HEMATOLOGY METHOD 05/06/2025 1:07 PM EDT [facility] Lymphocytes % 23 % LAB HEMATOLOGY METHOD 05/06/2025 1:07 PM EDT [facility] Monocytes % 10 % LAB HEMATOLOGY METHOD 05/06/2025 1:07 PM EDT [facility] Eosinophils % 2 % LAB HEMATOLOGY METHOD 05/06/2025 1:07 PM EDT [facility] Basophils % 1 % LAB HEMATOLOGY METHOD 05/06/2025 1:07 PM EDT [facility] Immature Granulocytes % 0 % LAB HEMATOLOGY METHOD 05/06/2025 1:07 PM EDT [facility] Neutrophils Absolute 4.13 1.60 - 6.10 10*3/uL LAB HEMATOLOGY METHOD 05/06/2025 1:07 PM EDT [facility] Lymphocytes Absolute 1.43 1.20 - 3.90 10*3/uL LAB HEMATOLOGY METHOD 05/06/2025 1:07 PM EDT [facility] Monocytes Absolute 0.60 0.30 - 0.90 10*3/uL LAB HEMATOLOGY METHOD 05/06/2025 1:07 PM EDT [facility] Eosinophils Absolute 0.12 0.00 - 0.50 10*3/uL LAB HEMATOLOGY METHOD 05/06/2025 1:07 PM EDT [facility] Basophils Absolute 0.04 0.00 - 0.10 10*3/uL LAB HEMATOLOGY METHOD 05/06/2025 1:07 PM EDT [facility] Immature Granulocytes Absolute 0.02 0.00 - 0.06 10*3/uL LAB HEMATOLOGY METHOD 05/06/2025 1:07 PM EDT [facility] Blood Venous blood specimen / Unknown Venipuncture / Unknown 05/06/2025 11:27 AM EDT 05/06/2025 11:28 AM EDT Narrative [facility] - 05/06/2025 1:07 PM EDT Therapeutic decision making should be based on absolute values, rather than percentages. [employer] LAB BLOOD ORDERABLES Final Resu lt Performing Organization Address [facility] Co de Phone Number [facility] [address] [place] [address] * C3 Complement (05/06/2025 11:27 AM EDT) C3 Complement 126 84 - 166 mg/dL 05/06/2025 1:40 PM EDT [facility] Blood Venous blood specimen / Unknown Venipuncture / Unknown 05/06/2025 11:27 AM EDT 05/06/2025 11:28 AM EDT [employer] LAB BLOOD ORDERABLES Final Resu lt Performing Organization Address [facility]/[place] [address] * C4 Complement (05/06/2025 11:27 AM EDT) C4 Complement 20 13 - 36 mg/dL 05/06/2025 1:40 PM EDT [facility] Blood Venous blood specimen / Unknown Venipuncture / Unknown 05/06/2025 11:27 AM EDT 05/06/2025 11:28 AM EDT [facility] LAB BLOOD ORDERABLES Final Resu lt Performing Organization Address City/[facility]/ZIP Co de Phone Number [facility] [address] [place] [address] * C-Reactive Protein, Plasma (05/06/2025 11:27 AM EDT) CRP, Plasma <3.0 <=8.0 mg/L 05/06/2025 1:28 PM EDT [facility] Blood Venous blood specimen / Unknown Venipuncture / Unknown 05/06/2025 11:27 AM EDT 05/06/2025 11:28 AM EDT Narrative [facility] - 05/06/2025 1:28 PM EDT This CRP test is appropriate for assessment of infection, systemic inflammation and/or tissue injury. To assess cardiovascular disease risk order high sensitivity CRP (CRPH). us Yareli Puga DO LAB BLOOD ORDERABLES Final Resu lt [facility] [address] [place] [address] * Phosphorus, Plasma (05/06/2025 11:27 AM EDT) [facility] Phosphorus, Plasma 4.5 2.5 - 4.5 mg/dL 05/06/2025 1:28 PM EDT [facility] Blood Venous blood specimen / Unknown Venipuncture / Unknown 05/06/2025 11:27 AM EDT 05/06/2025 11:28 AM EDT Enmanuel Castillo MD LAB BLOOD ORDERABLES Final Re sult [facility] [address] [place] [address] * (ABNORMAL) PTH Intact Total (05/06/2025 11:27 AM EDT) [facility] PTH Intact Total 415(H) 9 - 77 pg/mL 05/06/2025 3:41 PM EDT [facility] Blood Venous blood specimen / Unknown Venipuncture / Unknown 05/06/2025 11:27 AM EDT 05/06/2025 11:28 AM EDT Narrative [facility] - 05/06/2025 3:41 PM EDT Assay performed by immunoassay at the [facility]. Performed on [employer]as[employer]el Builder chemiluminescent immunoassay, tractable to the World Health Organization's first international standard for PTH from the NIBS, Code 79/500. Results obtained from different test methods or kits cannot be used interchangeably. us Enmanuel Castillo MD LAB BLOOD ORDERABLES Final Re sult [facility] [address] [place] [address] * (ABNORMAL) Comprehensive Metabolic Panel, Plasma (05/06/2025 11:27 AM EDT) Glucose, Plasma 94 74 - 99 mg/dL 05/06/2025 1:28 PM EDT [facility] BUN, Plasma 40(H) 8 - 23 mg/dL 05/06/2025 1:28 PM EDT [facility] Creatinine, Plasma 3.36(H) 0.60 - 1.10 mg/dL 05/06/2025 1:28 PM EDT [facility] BUN/Creatinine Ratio 12 05/06/2025 1:28 PM EDT [facility] Sodium, Plasma 138 136 - 145 mmol/L 05/06/2025 1:28 PM EDT [facility] Potassium, Plasma 4.2 3.6 - 4.9 mmol/L 05/06/2025 1:28 PM EDT [facility] Chloride, Plasma 100 97 - 107 mmol/L 05/06/2025 1:28 PM EDT [facility] CO2, Plasma 21(L) 22 - 29 mmol/L 05/06/2025 1:28 PM EDT [facility] Anion Gap 17(H) 6 - 16 mmol/L 05/06/2025 1:28 PM EDT [facility] Total Calcium, Plasma 8.5(L) 8.9 - 10.2 mg/dL 05/06/2025 1:28 PM EDT [facility] Total Protein 6.6 6.3 - 7.9 g/dL 05/06/2025 1:28 PM EDT [facility] Albumin, Plasma 4.0 3.5 - 5.2 g/dL 05/06/2025 1:28 PM EDT [facility] AST, Plasma 19 10 - 35 U/L 05/06/2025 1:28 PM EDT [facility] ALT, Plasma 9(L) 10 - 35 U/L 05/06/2025 1:28 PM EDT [facility] Alkaline Phosphatase, Plasma 90 46 - 142 U/L 05/06/2025 1:28 PM EDT [facility] Total Bilirubin, Plasma 0.2 0.2 - 1.1 mg/dL 05/06/2025 1:28 PM EDT [facility] eGFRcr 13.7 mL/min/1.7 3m*2 05/06/2025 1:28 PM EDT [facility] Comment:Reported eGFRcr in m L/min/1.73m2 is based the CKD-EPI 2020 equation that does not use a race coefficient. Blood Venous blood specimen / Unknown Venipuncture / Unknown 05/06/2025 11:27 AM EDT 05/06/2025 11:28 AM EDT us Yareli Puga DO LAB BLOOD ORDERABLES Final Resu lt [facility] [address] [place] [address] * Dexa Bone Density (01/09/2024 4:11 PM EST) Anatomical Region Laterality Modality L-spine Radiographic Jacqui ging Narrative 01/11/2024 2:27 PM EST [facility] - [facility] [address] [place] [address] DXA Bone Densitometry Report: [DAY/DATE] BMD test performed using the [employer] DXA System (analysis version: 14.10) manufactured by [employer]. REFERRING PROVIDER: Enmanuel Rodriguez MD CLINICAL INFORMATION: PATIENT NAME: Myriam Hayward [...] Most Recently Relevant to Health Maintenance Insurance [place]ICA[place] MEDICARE Care Teams Audience Coordinator Relationship Specialty Start Date End Date Liliana Gar APRN [address] [facility] [address] [place] [address] [facility] - General 02/23/25
--- OUTSIDE RECORDS SUMMARY | 2025-07-23 08:50 | XMS_ITS | Encounter Summary ---
Author Organization [facility] Address [address] [place] [address] Care Team Providers Care Balling Head Tender Name Role Phone Liliana Gar YURIY Primary Care Provider [phone] Reason for Visit * Reason Onset Date Comments Med Refill 06/03/2025 Encounter Details Date Type Department Care Team (Late st Contact Info) Description 06/03/2025 Refill [facility] Special[facility] [address] [place] [address] Tea Hagen MD [address] [place] [address] Systemic lupus erythematosus, organ or [...] Description 09/13/2025 2:20 PM EDT Office Visit [facility] Nephrology, Bone & Mineral Metabolism [address], [address] [place] [phone] 10/22/2025 10:45 AM EST Appointment [facility] [address] [place] [address] 10/22/2025 12:15 PM EST Office Visit [facility] [address] [place] [address] Yan Rowland MD [address] [place] [address] 11/19/2025 9:45 AM EST Office Visit [facility] [address] [place] [address] Yareli Puga DO [address] [place] [address] documented as of this encounter Visit Diagnoses [...] documented as of this encounter Care Teams Balling Head Tender Relationship Specialty Start Date End Date Liliana Gar, YURIY [address] [place] [address] PCP - General 02/23/25 documented as of this encounter
--- OUTSIDE RECORDS SUMMARY | 2025-07-23 08:50 | XMS_ITS | Encounter Summary ---
Author Organization [facility] Address [address] [place] [address] Care Team Providers Care Inspector Mechanical Name Role Phone Winston Webster MD Primary Care Provider [phone] Liliana Gar APRN Primary Care Provider [phone] Reason for Visit * Reason Comments Med Refill Encounter Details Date Type Department Care Team ([facility] st Contact Info) Description 05/14/2024 Refill Professional [facility] Nephrology, Bone & Mineral Metabolism [address], [address] [place] [address] Enmanuel Castillo MD [address] [place] [address] Social History Tobacco Use Types [...] could the lab orders be sent to [facility] in [place]? Best contact number and optimal time of day to reach caller: Pt [phone] Please call if orders sent so pt will know to go to the lab. Note: Please do not reply to this message. Follow-up communication and further actions as a result of this message need to be communicated with the patient directly, if the patient is not active onMyChart. If the patient is active on MyChart, they will receive notification of the communication/outcome via Numote. * Telephone Encounter - No Hancock LPN - 05/14/2024 7:23 AM EDT Refilled 04/17/24 #180 tablets for 3 months supply documented in this encounter Plan of Treatment Upcoming Encounters Date Type Department Care Team (Late st Contact Info) Description 09/13/2025 2:20 PM EDT Office Visit [facility] Nephrology, Bone & Mineral Metabolism [address], [address] [place] [address] 10/22/2025 10:45 AM EST Appointment [facility] Radiology [address] 1[address] [place] [address] 10/22/2025 12:15 PM EST Office Visit [facility] [address] [place] [address] Yan Rowland MD [address] [place] [address] 11/19/2025 9:45 AM EST Office Visit [facility] Medicine Specialties [address] [place] [address] EddYareli, DO [address] [place] [address] documented as of this encounter Visit Diagnoses Not on filedocumented in this encounter Additional Health Concerns Assessment Noted Time A fall risk assessment has been complete d for the patient 04/17/2024 11:18 AM EDT A Body Mass Index follow-up plan has been documented for the patient 04/17/2024 11:40 AM EDT documented as of this encounter Care Teams Inspector Mechanical Relationship Specialty Start Date End Date Winston Webster MD [address] [place] [address] PCP - General 04/14/21 02/22/25 Liliana Gar, CONTRACT SERVICEMAN [address] [place] [address] PCP - General 02/23/25 documented as of this encounter
[2025-07-23 09:09] LABS: Hematocrit 24.2 % (37.0-47.0); Hemoglobin 7.6 g/dL (12.2-16.2); Immature Granulocytes % 0.5 %; Mean Corpuscular HGB Conc 31.4 g/dL (31.8-35.4); Mean Corpuscular Hemoglobin 27.6 pg (27.0-31.2); Mean Corpuscular Volume 88.0 fl (81-99); Nucleated Red Blood Cells % 0 %; Platelet Count 270 K/mm3 (142-424); Red Blood Count 2.75 M/mm3 (4.20-5.40); Red Cell Distribution Width-SD 47.3 fL; White Blood Count 5.7 K/mm3 (4.8-10.8)
== END 2025-07-23 23:59 | disposition home or self-care (01) ==
LOC: LAB 08:48
PROVIDERS: PCP Nurse Practitioner Family; Visit Provider Internal Medicine Nephrology
DX: N18.4 Chronic kidney disease, stage 4 (severe) (principal); D63.8 Anemia in other chronic diseases classified elsewhere
CPT/HCPCS: 36415; 85025

== ENCOUNTER 2025-08-18 15:16 | Outpatient (CLI) | payer MEDICARE, SELFPAY ==
--- OUTSIDE RECORDS SUMMARY | 2025-03-06 17:30 | XMS_ITS ---
Author Organization [facility] D GINNY Address [address] [place] [address] Care Team Providers Care Tray Setter Name Role Phone Winston Webster Primary Care Provider Migration, Provider Unavailable Unavailable Allergies Allergen (clinical drug ingredient) Drug/Non Drug Allergy documented on EMR Reaction Allergy Type Onset Date Status IV DYES (uncoded) Unknown Allergy Ac tive Latex LATEX (uncoded) Unknown Allergy Acti ve angiotensin-converting enzyme inhibitor (FN) ANDREWS Inhibitors Unknown Drug Allergy Acti ve morphine Morphine Unknown Drug Allergy Active [facility] Conversion Encounter Medications Medication SIG (Take, [...] review and pick correct [facility]. If intended option is not shown, [...] tab(s) orally every 6 hours Active Nystatin 722337 UNIT/GM 1 truong applied topically 3 times [...] Active Encounters Encounter Location Date Provider Diagnosis [facility] PED [facility] [address] [facility] [address] [place] [address] 03/06/2025 Provider Migration Recurrent UTI N39.0 Assessments [...] Chacha HAYWARD ADOB:[birth year] (75 yo F)Acc No.[id number]:03/06/2025 Patient: Alejandra ELIZABETHChacha Provider: Yobany Mancera :1950 A ge:75 Y S ex:Female Date:03/06/2025 Address:[facility] [address], [id number] Pcp:Winston Webster Subjective: * Chief Complaints: * 1 . Multum To Medispan Conversion Encounter. * Medical History: * Medications: T aking Nystatin 486386 UNIT/GM Powder 1 truong applied topically 3 [...] Electronic signature of Prov ider Migration on 08/18/2025 at 03:19 PM EDT Sign off status: Pending * Provider: Yobany valderrama Migration Date: 0 03/06/2025 Generated for Printi ng/Ronda/Daviditting on: 0 08/18/2025 03:19 PM EDT
--- OUTSIDE RECORDS SUMMARY | 2025-08-04 06:30 | XMS_ITS ---
Author Organization [facility] PE D GINNY Address [address] [facility] [address] [facility] [address] [place] [address] Care Team Providers Care Rand Butter Name Role Phone Darin Winston Primary Care Provider Amber Lechuga Unavailable [phone] Allergies Allergen (clinical drug ingredient) Drug/Non Drug Allergy documented on EMR Reaction Allergy Type Onset Date Status IV DYES (uncoded) Unknown Allergy Ac tive Latex LATEX (uncoded) Unknown Allergy Acti ve angiotensin-converting enzyme inhibitor (FN) ANDREWS Inhibitors Unknown Drug Allergy Acti ve morphine Morphine Unknown Drug Allergy Active Reason For Referral Reason Echo at [facility] Diagnosis 1 OSWALD (dyspnea on exer tion) (R06.09) Referral Organization [facility] Referring Provider First Name Amber Referring Provider Last Name Alexandrea Referring Provider Speciality Family Pra ctice Referred Organization [facility] Referred Address [address] [place] [address], [place], [place],[address], Referred Provider Specialty Diagnostic R adiology General Notes Amanda Rae 2024 12:15:53 PM >SENT TO [facility] TO SCHEDULED NO AUTH NEEDED FOR CPT 59511 Referral Priority Routine REASON FOR VISIT UTI [...] 08/04/2025 Encounters Encounter Location Date Provider Diagnosis [address] [address] 08/04/2025 Amber Lechuga Dysuria R30.0 ; OSWALD (dyspnea on exertion) R06.09 ; Palpitations R00.2 and Anemia, chronic disease D63.8 Assessments Encounter Date Diagnosis (ICD Code) Assessment Notes Treatment Notes Treatment Clinical Notes Section Notes 08/04/2025 Dysuria (ICD-10 - R30.0) unable to leave urine specimen today...supplies provided and will take this later to [facility] lab Start oral antibiotics as noted, renal [...] Referral Date Details 08/08/2025 08/08/2025, Echo at [facility], [address] [place] [facility] [address] [facility], [place], [address], Next Appt Details Follow Up: pending results, Reason: Progress Notes * GUSMarbella ALAMOith ADOB:[birth year] (75 yo F)Acc No.[id number]:08/04/2025 Progress Notes Patient: Chacha MONDRAGON Provider: ELIZABETH Higgins :1950 A ge:75 Y S ex:Female Date:08/04/2025 Address:[facility] [place], [place] Pcp:Winston Webster Subjective: * Chief Complaints: * [...] UTI 06/2021, UTI , blood [facility]22[facility] * Family History: [...] has since . One child lives in [place], another daughter lives in [place]. [facility], has lots of problems with mobility [...] update Echo ? Referral To: Reason:Echo at [facility] * Procedure Codes: 9 3000 EKG WITH INTERP. * Follow Up: p ending results * * Sign off status: Completed true * Provider: ELIZABETH Higgins Date: 08/04/2025 Generated for Timur lr/Ronda/eTransmitting on: 08/18/2025 03:19 PM EDT History and Physical Notes * Examination [...] Not alma 08/08/2025 Amber Lechuga Echo at [facility]
--- OUTSIDE RECORDS SUMMARY | 2025-08-09 08:11 | XMS_ITS ---
Author Organization [facility] Address [address] [place] [address] Care Team Providers Care Transportation Program Director Name Role Phone Winston Webster Primary Care Provider [phone] [facility] [phone] Encounters Encounter Location Date Provider Diagnosis [facility] [address] [place] [address] 08/09/2025 Amber Lechuga Dyspnea on exertion R06.09 Assessments Encounter Date Diagnosis (ICD Code) Assessment Notes Treatment Notes Treatment Clinical Notes Section Notes 08/09/2025 Dyspnea on exertion (ICD-10 - R06.09) Plan Of Treatment Pending Test Test Name Order Date Echocardiogram 08/09/2025 Progress Notes * Chacha HAYWARD ADOB:[birth year] (75 yo F)Acc No.[id number]:08/09/2025 Patient: Chacha MONDRAGON :1950 A ge:75 Y S ex:Female Address:[facility] [place], [address] Subjective: * Chief Complaints: * * Medical History: * Surgical History: * Hospitalization/Major Diagno stic Procedure: * Medications: Objective: * Vitals: * Physical Examination: Assessment: * Assessment: 1. D yspnea on exertion - R06.09 Plan: * Treatment: * * Procedure Codes: * true * Date: Generated for Printi ng/Ronda/Daviditting on: 0 08/18/2025 03:18 PM EDT
--- NOTE | 2025-08-18 | CA_ITS ---
APPROVED REPORT EXAM: Comprehensive 2D, Doppler, and color-flow Echocardiogram Armature Winder Repair: Gabriella Schilling CRT Ht: 5 ft 0 in Wt: 127lbs BSA: 1.54 BP: 101/66 mmHg Indications: dyspnea 2D Dimensions LA Volume 37.50 mL LA Volume Index 24.172831 mL/m2 (M/F) 16-34 M-Mode Dimensions RVDd 2.54 cm (0.9-2.6) LA Diam 3.83 cm (1.9-4.0) LVDd 4.26 cm (3.5-5.7) LVDs 3.13 cm (3.5-5.7) IVSd 1.44 cm (0.6-1.1) PWd 0.72 cm (0.6-1.1) EF (Teich) 52.30% FS 26.50% EDV (Teich) 81.30 mL TAPSE 1.74 (<1.7) ESV (Teich) 38.80 mL LV Diastology E Decel Time 147 (160-240 msec) E/A Ratio 0.62 MED A' 6.50 cm/s LAT A' 9.60 cm/s Aortic Valve AO Peak GR. 5.80 mmHg Mitral Valve MV E Max Enrique. 46.0 (40-130 cm/s) MV A Velocity 74.0 (40-130 cm/s) E/A Ratio 0.62 MV PHT 43.0 ms Pulmonary Valve PV Peak Velocity 109.0 (50-150 cm/s) Tricuspid Valve TR P. Velocity 220.00 cm/s RAP Estimate 10.00 mmHg RVSP 29.40 mmHg Left Ventricle The left ventricle is normal size. Left ventricular systolic function is normal. The left ventricular ejection fraction is within the normal range. There is increased left ventricular wall thickness. There is normal LV segmental wall motion. Transmitral Doppler flow pattern suggests impaired LV relaxation. LVEF is 55%. Right Ventricle The right ventricle is normal size. The right ventricular systolic function is normal. Atria The left atrium is mildly dilated. The right atrium is mildly dilated. There is no color Doppler evidence of interatrial shunt. Aortic Valve The aortic valve is mildly thickened. There is no hemodynamically significant aortic valvular stenosis. No aortic regurgitation is present. Mitral Valve The mitral valve is normal in structure. No evidence of mitral valve stenosis. Trace mitral regurgitation is present. Tricuspid Valve The tricuspid valve leaflets are thin and pliable. Mild tricuspid regurgitation. RVSP is 20-25 mmHg. Pulmonic Valve The pulmonary valve is grossly normal in structure. Trace pulmonic valve regurgitation is present. Great Vessels The aortic root is normal in size. IVC is normal in size and collapses >50% with inspiration. Pericardium There is no pericardial effusion. Other Information Study Quality: Technically Difficult Conclusion Normal biventricular systolic function. Mild biatrial dilation. Mild TR. Electronically signed by : Melanie Darden MD 08/22/2025 16:24:47
--- OUTSIDE RECORDS SUMMARY | 2025-08-18 15:18 | XMS_ITS | Encounter Summary ---
Author Organization [facility] Address [address] [place] [address] Care Team Providers Care Manager Culinary Name Role Phone Winston Webster MD Primary Care Provider [phone] Liliana Gar APRN Primary Care Provider [phone] Encounter Details Date Type Department Care Team (Late Contact Info) Description 06/12/2024 Orders Only External Location [address] [place] [address] Provider, External Social History Tobacco Use Types [...] 09/13/2025 2:20 PM EDT Office Visit [facility] Nephrology, Bone & Mineral Metabolism [address], [address] [place] [address] 10/22/2025 10:45 AM EST Appointment [facility] [address], [address] [place] [address] 10/22/2025 12:15 PM EST Office Visit [place] [facility] [address], [address] [place] [address] Yan Rowland MD [address] [place] [address] 11/19/2025 9:45 AM EST Office Visit [facility] Medicine Specialties [address], [address] [place] [address] Yareli Puga DO [address] [place] [address] documented as of this encounter [...] documented as of this encounter Care Teams Manager Culinary Relationship Specialty Start Date End Date Winston Webster MD [address] [place] [address] PCP - General 04/14/21 02/22/25 Liliana Gar APRN [address] [place] [address] PCP - General 02/23/25 documented as of this encounter
--- OUTSIDE RECORDS SUMMARY | 2025-08-18 15:19 | XMS_ITS | Encounter Summary ---
Author Organization [facility] Address [address] [place] [address] Care Team Providers Care Leach Runner Name Role Phone Winston Webster MD Primary Care Provider [phone] Liliana Gar APRN Primary Care Provider [phone] Reason for Visit * Reason Comments Med Refill Encounter Details Date Type Department Care Team (Late st Contact Info) Description 05/04/2022 Refill [facility] [address] [place] [address] Enmanuel Castillo MD [address] [place] [address] Social History Tobacco Use Types Packs/Day [...] 09/13/2025 2:20 PM EDT Office Visit Professional [facility] Nephrology, Bone & Mineral Metabolism [address], [address] [place] [address] 10/22/2025 10:45 AM EST Appointment [facility] [address], [address]st [place] [address] 10/22/2025 12:15 PM EST Office Visit [place] [facility] [address], [address]st [place] [address] Yan Rowland MD [address] [place] [address] 11/19/2025 9:45 AM EST Office Visit [facility] Medicine Specialties [address], [address] [place] [address] Yareli Puga DO [address] [place] [address] documented as of this encounter Visit Diagnoses Not on filedocumented in this encounter Additional Health Concerns Assessment Noted Time A fall risk assessment has been complete d for the patient 11/28/2021 1:17 PM EST documented as of this encounter Care Teams Leach Runner Relationship Specialty Start Date End Date Winston Webster MD [address] [place] [address] PCP - General 04/14/21 02/22/25 Liliana Gar, YURIY [address] [place] [address] PCP - General 02/23/25 documented as of this encounter
--- OUTSIDE RECORDS SUMMARY | 2025-08-18 15:19 | XMS_ITS | Clinical Summary ---
Author Organization [facility] Address [address] [place] [address] Care Team Providers Care Unit Trust Manager Name Role Phone Unavailable Primary Care Provider [...] 75+ series) 4 COVID-19 Vaccine (2023- season) 2025 INFLUENZA VACCINE 09/01/2025
--- OUTSIDE RECORDS SUMMARY | 2025-08-18 15:19 | XMS_ITS | Encounter Summary ---
Author Organization [facility] Address [address] [place] [address] Care Team Providers Care Furniture Inspector Name Role Phone Winston Webster MD Primary Care Provider [phone] Liliana Gar APRN Primary Care Provider [phone] Encounter Details Date Type Department Care Team (Late Contact Info) Description 06/12/2024 Orders Only External Location [address] [place] [address] Provider, External Social History Tobacco Use Types [...] 09/13/2025 2:20 PM EDT Office Visit [facility] Nephrology, Bone & Mineral Metabolism [address] [facility] [address] [facility], [address] [place] [address] 10/22/2025 10:45 AM EST Appointment [facility] [address], 1[address] [place] [address] 10/22/2025 12:15 PM EST Office Visit [place] [facility] [address], 1st [place] [address] Yan Rowland MD [address] [place] [address] 11/19/2025 9:45 AM EST Office Visit [facility] Medicine Specialties [address], [address] [place] [address] Yareli Puga DO [address] [place] [address] documented as of this encounter [...] documented as of this encounter Care Teams Furniture Inspector Relationship Specialty Start Date End Date Winston Webster MD [address] [place] [address] PCP - General 04/14/21 02/22/25 Liliana Gar, YURIY [address] [place] [address] PCP - General 02/23/25 documented as of this encounter
--- OUTSIDE RECORDS SUMMARY | 2025-08-18 15:19 | XMS_ITS | Encounter Summary ---
Author Organization [facility] Address [address] [place] [address] Care Team Providers Care Rehab Technician Name Role Phone Winston Webster MD Primary Care Provider [phone] Liliana Gar APRN Primary Care Provider [phone] Encounter Details Date Type Department Care Team (Late Contact Info) Description 06/12/2024 Orders Only External Location [address] [place] [address] Provider, External Social History Tobacco Use Types [...] PM EDT Office Visit [facility] Nephrology, Bone & Mineral Metabolism [address] [facility], [address] [place] [address] 10/22/2025 10:45 AM EST Appointment [facility] [address], 1st [place] [address] 10/22/2025 12:15 PM EST Office Visit [facility] [address], [address] [place] [address] Yan Rowland MD [address] [place] [address] 11/19/2025 9:45 AM EST Office Visit [facility] Medicine Specialties [address], [address] [place] [address] Yareli Puga DO [address] [place] [address] documented as of this encounter [...] documented as of this encounter Care Teams Rehab Technician Relationship Specialty Start Date End Date Winston Webster MD [address] [place] [address] PCP - General 04/14/21 02/22/25 Liliana Gar, INDUSTRIAL HYGIENE ENGINEER [address] [place] [address] PCP - General 02/23/25 documented as of this encounter
--- OUTSIDE RECORDS SUMMARY | 2025-08-18 15:19 | XMS_ITS | Encounter Summary ---
Author Organization [facility] Address [address] [place] [address] Care Team Providers Care Shoe Sticks Repairer Name Role Phone Liliana Gar YURIY Primary Care Provider [phone] Reason for Referral * Consultation (Routine) - Closed Specialty Diagnoses / Procedures Referred By Gaby presley Referred To Contact Neurosurgery Diagnoses Brain mass Emilee Tejeda MD [address] [facility] [address] [place] [address] Phone: tel: fax: Referral ID Status Reason Start Date Expiration Date V isits Requested Visits Authorized [id number] Closed Specialty Services Required 02/26/2025 08/28/2026 1 1 Encounter Details Date Type Department Care Team (Late st Contact Info) Description 02/26/2025 Community [facility] [address] [place] [address] Emilee Tejeda MD [address] [place] [address] Brain mass (Primary Dx) Social History [...] Description 09/13/2025 2:20 PM EDT Office Visit [facility] Nephrology, Bone & Mineral Metabolism [address], [address] [place] [address] 10/22/2025 10:45 AM EST Appointment [facility] [address], 1st [place] [address] 10/22/2025 12:15 PM EST Office Visit [place] [facility] [address], [address]st [place] [address] Yan Rowland MD [address] [place] [address] 11/19/2025 9:45 AM EST Office Visit [facility] Medicine Specialties [address], [address] [place] [address] Yareli Puga DO [address] [place] [address] Scheduled Referrals Name Type Priority [...] documented as of this encounter Care Teams Shoe Sticks Repairer Relationship Specialty Start Date End Date Liliana Gar, YURIY [address] [place] [id number] PCP - General 02/23/25 documented as of this encounter
--- OUTSIDE RECORDS SUMMARY | 2025-08-18 15:19 | XMS_ITS | Clinical Summary ---
Author Organization [facility] Address [address] [place] [address] Care Team Providers Care Envelope Sealer Operator Name Role Phone Liliana Gar EXCHANGE OPERATOR Primary Care Provider [phone] Allergies Active Allergy Reactions Criticality Noted Date [...] XL (Procardia XL) 30 MG 24 hr tabletIndications: Benign essential hypertension Take 1 tablet by mouth daily. Do not crush, chew, or split. 90 tablet 3 05/10/20 25 Active mycophenolate (Cellcept) 500 MG tabletIndications: Systemic lupus erythematosus, organ or system involvement unspecified (CMS/HCC) TAKE 1 TABLET TWICE DAILY 180 tablet 3 05/17/20 25 Active Hydroxychloroquine Sulfate 300 MG tabletIndications: Systemic lupus erythematosus, organ or system involvement unspecified (CMS/HCC) Take 300 mg by mouth daily. 90 tablet 06/04/20 25 Active cholecalciferol (Vitamin D-3) 50 MCG (1999) capsule TAKE 1 CAPSULE EVERY DAY 90 capsule 3 06/14/20 25 Active darbepoetin alondra (Aranesp, Albumin Free,) 100 MCG/ML injection Inject 1 mL under the skin every 28 days. 1 mL 1 07/26/20 25 Active darbepoetin alondra (Aranesp) 60 MCG/0.3ML solution prefilled syringe Inject 0.3 mL under the skin every 28 days. 0.3 mL 3 06/18/20 25 025 Discontinued Active Problems Problem Noted Date Diagnosed Date [...] Date Type Department Care Team Description [facility] Nephrology, Bone & Mineral Metabolism [address] [facility], [address] [place] [address] Lena Leon MD 06/03[facility] [address] [place] [address] Tea Hagen MD Systemic lupus erythematosus, organ or system involvement unspecified ([facility]/HCC) 06/02/2025 Telephone [facility] [address], [address] [place] [address] Roosevelt Blackwood MD [facility] - Patient Message (Cancel ) from Last 3 Months Immunizations Immunization Administration [...] David Hypertension Father David Breast cancer Mother Randle Diabetes Mother Randle Hypertension Mother Randle Lung cancer Mother Randle Skin cancer Mother Randle Alcohol abuse Other 1 Cancer Other 2 Colon cancer Other 3 Diabetes Other 4 Drug abuse Other 5 Hyperlipidemia Other 6 Hypertension Other 7 Hyperthyroidism Other 8 Hypothyroidism Other 9 Lung cancer Other 10 Ovarian cancer Other 11 Cancer Sister Roxane Hahn Relation Name Status Comments Cousin Father David Mother Randle Other 1 Other 2 Other 3 Other [...] Description 09/13/2025 2:20 PM EDT Office Visit [facility] Nephrology, Bone & Mineral Metabolism [address] [facility], [address] [place] [address] 10/22/2025 10:45 AM EST Appointment [facility] [address], 1st [place] [address] 10/22/2025 12:15 PM EST Office Visit [facility] [address], 1st [place] [address] Yan Rowland MD [address] [place] [address] 11/19/2025 9:45 AM EST Office Visit [facility] Medicine Specialties [address], 2nd [place] [address] Edd Yareli, DO [address] [place] [address] Health Maintenance Due Date Last Done Comments [facility]-Hepatitis C Screening 1950 [facility]-Medicare Annual Wellness (AWV) 1950 [facility]-Infant/Child/Adol SDOH Screenings 1950 [facility]- SDOH Screenings 1967 [facility]-Adult SDOH Screenings 1967 [facility]-DTaP,Tdap,and Td Vaccines (1 - Tdap) 02/21/1968 [facility]-Zoster Vaccines (1 of 2) 02/21/1968 [id number] Vaccine (3 - Moderna risk series) 03/23/2021 [...] Procedure Name Priority Date/Time Associated Diagnosis Comments DEXA BONE DENSITY Routine 01/09/2024 4:1 1 PM EST Age related osteoporosis, unspecified pathological fracture presence from Last 3 Months or Most Recently Relevant to Health Maintenance Results * Dexa Bone Density (01/09/2024 4:11 PM EST) Anatomical Region Laterality Modality L-spine Radiographic Jacqui ging Narrative 01/11/2024 2:27 PM EST [facility] - [facility] [address] [place] [address], [place] [address] DXA Bone Densitometry Report: [DAY/DATE] BMD test performed using the [facility] DXA System (analysis version: 14.10) manufactured by [employer]. REFERRING PROVIDER: Enmanuel Rodriguez MD CLINICAL INFORMATION: [...] Maintenance Insurance [place] MEDIC[place] Care Teams Envelope Sealer Operator Relationship Specialty Start Date End Date Liliana Gar APRN [address] [facility] [facility] [address] [place] [address] PCP - General 02/23/25
--- OUTSIDE RECORDS SUMMARY | 2025-08-18 15:19 | XMS_ITS | Encounter Summary ---
Author Organization [facility] Address [address] [place] [address] Care Team Providers Care Button Decorating Machine Operator Name Role Phone Winston Webster MD Primary Care Provider [phone] Liliana Gar APRN Primary Care Provider [phone] Encounter Details Date Type Department Care Team (Late Contact Info) Description 06/12/2024 Orders Only External Location [address] [place] [address] Provider, External Social History Tobacco Use Types [...] 09/13/2025 2:20 PM EDT Office Visit [facility] Nephrology, Bone & Mineral Metabolism [address] [facility] [address] [facility], [address] [place] [address] 10/22/2025 10:45 AM EST Appointment [facility] [address], 1st [place] [address] 10/22/2025 12:15 PM EST [facility] [address], [address] [place] [address] Yan Rowland MD [address] [place] [address] 11/19/2025 9:45 AM EST Office Visit [facility] Medicine Specialties [address], [address] [place] [address] Yareli Puga DO [address] [place] [address] documented as of this encounter [...] documented as of this encounter Care Teams Button Decorating Machine Operator Relationship Specialty Start Date End Date Winston Webster MD [address] [place] [address] PCP - General 04/14/21 02/22/25 Liliana Gar APRN [address] [place] [address] PCP - General 02/23/25 documented as of this encounter
--- OUTSIDE RECORDS SUMMARY | 2025-08-18 15:19 | XMS_ITS | Patient Health Record ---
Author Organization [facility] Address [address] [place] [address] Care Team Providers Care Audit Tech Name Role Phone Winston Webster Primary Care Provider Amber Lechuga Unavailable [phone] Liliana Avalos Unavailable [phone] Migration, Provider Unavailable Unavailable Allergies Allergen (clinical drug ingredient) Drug/Non Drug Allergy documented on EMR Reaction Allergy Type Onset Date Status IV DYES (uncoded) Unknown Allergy Ac tive Latex LATEX (uncoded) Unknown Allergy Acti ve angiotensin-converting enzyme inhibitor (FN) ANDREWS Inhibitors Unknown Drug Allergy Acti ve morphine Morphine Unknown Drug Allergy Active Results Component Value Reference Range Notes COMPREHENSIVE METABOLIC PANE L (10916) Reviewed date:05/19/2025 10:59:23 AM Interpretation: Performing Lab:CB, [facility] CenterTipcZJ[address] Olivier Albert Notes/Report: NON-FASTING; NON-FASTING; NON-FASTING GLUCOSE [...] date:05/19/2025 10:59:23 AM Interpretation: Performing Lab:JOSÉ LUIS, [facility] [address] [place], [place] Olivier Albert Notes/Report: NON-FASTING; NON-FASTING; NON-FASTING WHITE [...] MPV 9.7 7.5-12.5 fL ABSOLUTE NEUTROPHILS 4762 7278-5199 cells/uL ABSOLUTE LYMPHOCYTES 4991 270-6859 cells/uL ABSOLUTE MONOCYTES 531 200-950 cells/uL ABSOLUTE EOSINOPHILS 32 15-500 cells/uL ABSOLUTE BASOPHILS 32 0-200 cells/uL NEUTROPHILS 74.4 LYMPHOCYTES 16.3 MONOCYTES 8.3 EOSINOPHILS 0.5 BASOPHILS 0.5 TSH W/REFLEX TO FT4 (11226) Reviewed date:05/19/2025 10:59:23 AM Interpretation: Performing Lab:JOSÉ LUIS, [facility] [id number], [place] Technology[place] Olivier Albert Notes/Report: NON-FASTING; NON-FASTING; NON-FASTING NON-FASTING; NON-FASTING; NON-FASTING TSH W/REFLEX TO FT4 0.11 0.40-4.50 mIU/L T4, FREE 1.0 0.8-1.8 ng/dL Reason For Referral Reason Neurology - Dr. Key altamirano Call Daughter to Schedule appt/ Kellee [phone] Diagnosis 1 Brain lesion (G93.9) Referral Organization [facility] SHELLEY PRICE Referring Provider First Name Liliana Referring Provider Last Name Robbie Referring Provider Speciality [facility] ctice Referred Organization [facility] Referred Address [address], [place], [place],[address], Referred Provider Specialty Neurology General Notes Amanda Rae 2023 03:11:02 PM >Referral sent to Dr. Tejeda Referral Priority Routine Reason Medication Managment with [facility] Diagnosis 1 Brain lesion (G93.9) Diagnosis 2 Urinary incontinence , unspecified type (R32) Diagnosis 3 Psychophysiologic in somnia (F51.04) Diagnosis 4 Chronic kidney disea se, stage 4 (severe) (N18.4) Diagnosis 5 Lupus erythematosus (L93.0) Referral Organization [facility] SHELLEY PRICE Referring Provider First Name Liliana Referring Provider Last Name Robbie [facility] Referral Priority Routine Reason Needs [employer] sportation scheduled for Rheumatology [address] Referral Organization [facility] SHELLEY GROSS Referring Provider First Name Winston Referring Provider Last Name Darin Referring Provider Speciality Internal M edicine Referred Provider Specialty Transportati on General Notes Amanda Rae 2024 10:40:55 AM >waiting on form Referral Priority Routine Referral Appointment Date 05/06/2025 Reason wheelchair Diagnosis 1 Weakness (R53.1) Referral Organization [facility] SHELLEY PRICE Referring Provider First Name Liliana Referring Provider Last Name Robbie Referring Provider [facility] Cristian ctice Referred Provider Specialty DME General Notes Amanda Rae 2024 01:00:49 PM >Has [employer] HMO can't do Romy- sent to [facility] Referral Priority Routine Reason Echo at [facility] Diagnosis 1 OSWALD (dyspnea on exer tion) (R06.09) Referral Organization [facility] SHELLEY PRICE Referring Provider First Name Amber Referring Provider Last Name Alexandrea Referring Provider Speciality [facility] Referred Organization [facility] Referred Address [address] [facility], [place],[address] Referred Provider Specialty Diagnostic R adiology General Notes Amanda Rae 2024 12:15:53 PM >SENT TO [facility] TO SCHEDULED NO AUTH NEEDED FOR CPT 99491 Referral Priority Routine Medications Medication SIG (Take, Route, Frequency, Duration) Notes Start Date End Date Status Mycophenolate Mofetil 500 MG 1 tab(s) orally 2 times a day Active Mirtazapine 15 MG TAKE 1 TABLET EVERY DAY; Duration: 90 Active Fiber Choice 1.5 GM 2 tab(s) chewed 2 times a day Active Sertraline HCl 25 MG 1 tab(s) orally once a day; Duration: 90 days Active Acetaminophen 500 MG 2 tab(s) orally every 6 hours Active Cetirizine HCl 10 MG 1 tablet Orally Once a day; Duration: 90 days 05/18/2025 Active Cholecalciferol 50 MCG (1999 UT) 1 capsule Orally Once a day Active Xanax 0.25 MG 1 tab(s) orally daily; Duration: 30 days 05/17/2025 Active Dicyclomine HCl 10 MG 1 cap(s) orally twice daily; Duration: 90 days Active Cefdinir 300 MG 300 mg Orally daily; Duration: 7 days 08/04/2025 Active NURTEC ODT 75 MG 1 TAB(S) ORALLY EVERY OTHER DAY; Duration: 30 DAYS *Please review for potential replacement for e-prescription and drug interaction check* Active Hydroxychloroquine Sulfate 300 MG 1 tab(s) orally twice a day; Duration: 30 days Active Doxepin HCl 10 MG 2 TABS orally at bedtime as needed Active Levothyroxine Sodium 137 MCG TAKE 1 TABLET EVERY MORNING ON AN EMPTY STOMACH; Duration: 90 Active NIFEdipine 10 MG 1 capsule as needed Orally every 8 hrs Active Sodium Bicarbonate 650 MG TAKE 2 TABLETS THREE TIMES DAILY; Duration: 90 days Active busPIRone HCl 10 MG 1 tab(s) orally 2 times a day; Duration: 90 days Active Fluticasone Propionate 50 MCG/ACT 1 spray in each nostril Nasally Twice a day Active Imitrex 100 MG 1 tab(s) orally once at onset of migraine; Duration: 90 days Active Immunizations Vaccine Route Administration Date Status Comme [facility] Prevnar PCV-13 (Pneumococcal conjugate 13) IM [...] Status W/U Status Risk Notes Problem Hypocalcemia (2357133) Hypocalcemia (E83.51) Active confirmed Problem Psychophysiologic insomnia (098494413) Psychophysiologic insomnia (F51.04) Active confirmed Problem Chronic pain (89302560) Other chronic pain (G89.29) Active confirmed Problem 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) Active confirmed Problem Irritable bowel syndrome with diarrhea (104579803) Irritable bowel syndrome with diarrhea (K58.0) Active confirmed Problem 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) Active confirmed Problem Osteoporosis (05551981) Other osteoporosis without current pathological fracture (M81.8) Active confirmed Problem Chronic kidney disease stage 4 (876085625) Chronic kidney disease, stage 4 (severe) (N18.4) Active confirmed Problem Disorder of kidney and/or ureter (524144233) Other specified disorders of kidney and ureter (N28.89) Active confirmed Problem Mixed anxiety and depressive disorder (104007827) Depression with anxiety (F41.8) Active confirmed Problem Hypothyroidism (51570372) Hypothyroidism (acquired) (E03.9) Active confirmed Problem Neuropathy (180464504) Neuropathy (G62.9) Active confirmed Problem Essential hypertension (80987019) Essential hypertension (I10) Active confirmed Problem Seasonal allergy (911876985) Seasonal allergies (J30.2) Active confirmed Problem Arthropathy (629441339) Arthritis involving multiple sites (M12.9) Active confirmed Problem Gastroesophageal reflux disease without esophagitis (497986128) Gastroesophageal reflux disease without esophagitis (K21.9) Active confirmed Problem Abnormal mammogram (598908666) Abnormal mammogram (R92.8) Active confirmed Problem Lesion of brain (259922371) Brain lesion (G93.9) Active confirmed Problem Lupus erythematosus (517391020) Lupus erythematosus (L93.0) Active confirmed Problem Dyspnea on exertion (24396493) Dyspnea on exertion (R06.09) Active confirmed Problem Bilateral tinnitus (0475468842327) Tinnitus of both ears (H93.13) Active confirmed Problem Generalized anxiety disorder (34167065) ANGE (generalized anxiety disorder) (F41.1) Active confirmed Problem Chronic kidney disease stage 4 (401874381) Chronic kidney disease, stage IV (severe) (N18.4) Active confirmed Problem Lupus nephritis (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) Active confirmed Problem Moderate recurrent major depression (46617180) Moderate episode of recurrent major depressive disorder (F33.1) Active confirmed Problem Allergic rhinitis caused by pollen (92912150) Seasonal allergic rhinitis due to pollen (J30.1) Active confirmed Problem Essential tremor (146385678) Tremor, essential (G25.0) Active confirmed Problem Anemia of chronic disease (881969730) Anemia, chronic disease (D63.8) Active confirmed Problem Urinary incontinence (564032311) Urinary incontinence, unspecified type (R32) Active confirmed Problem Seasonal allergic rhinitis (089434205) Acute seasonal allergic rhinitis (J30.2) Active confirmed Problem Osteoarthritis of knee (794355138) Localized osteoarthritis of knees, bilateral (M17.0) Active confirmed Problem Acute systolic heart failure (239320713) Acute systolic congestive heart failure (I50.21) Active confirmed Problem COVID-19 (937792346) COVID-19 (U07.1) Active confirmed Problem Chronic kidney disease stage 5 (361773146) Chronic kidney failure, stage 5 (N18.5) Active confirmed Vital Signs Heart Rate 105 /min 08/04/2025 Temperature 97.5 degrees Fahrenheit 08/04/2025 Oximetry 99 08/04/2025 Blood pressure diastolic 90 mm Hg 08/04/2025 Height 61 in 08/04/2025 Blood pressure systolic 146 mm Hg 08/04/2025 Weight 124 lbs 08/04/2025 BMI 23.43 kg/m2 08/04/2025 Encounters Encounter Location Date Provider Diagnosis [facility] [address] [place], [place] [address] 03/06/2025 Provider Migration Recurrent UTI N39.0 [facility] [address] [address] 05/17/2025 Liliana McNees Hypothyroidism (acquired) E03.9 ; [...] anxiety disorder) F41.1 and Essential hypertension I10 [facility] [address] [address] 08/04/2025 Amber Lechuga Dysuria R30.0 ; OSWALD (dyspnea on exertion) R06.09 ; Palpitations R00.2 and Anemia, chronic disease D63.8 [facility] [address] [address] 08/24/2024 Liliana McNees [facility] [address] [place], [place] [address] 10/05/2024 Winston Webster [facility] [address] [place] [address] 10/08/2024 Liliana McNees [facility] [address] [place], [place] [address] 05/17/2025 Liliana McNees [facility] [address] [facility] [address] [place], [place] [address] 05/17/2025 Liliana McNees [facility] [place] [address] [place] [address] 05/19/2025 Winston Webster [facility] [address] [place] [address] 08/09/2025 Amber Lechuga Dyspnea on exertion R06.[address] [facility] [address] [place] [address] 08/10/2025 Amber Lechuga Assessments Encounter Date Diagnosis (ICD Code) Assessment [...] a DNR, healthcare surrogate is daughter Kellee 08/04/2025 Dysuria (ICD-10 - R30.0) unable to leave urine specimen today...supplies provided and will take this later to [facility] lab Start oral antibiotics as noted, renal dose 08/04/2025 OSWALD (dyspnea on exertion) (ICD-10 - R06.09) likely multifactoral and anemia may contribute. EKG with mild sinus tach today and nonspecific changes, reviewed with Dr Webster I did encourage her to go to the ED if these symptoms progress, we will update Echo 08/09/2025 Dyspnea on exertion (ICD-10 - R06.09) 08/04/2025 Palpitations (ICD-10 - R00.2) 05/17/2025 Lupus nephritis (ICD-10 - M32.14) Following with rheumatology and nephrology. No recent changes. Previously followed by Hospice, remains palliative care 05/17/2025 Arthritis involving multiple sites (ICD-10 - M12.9) At baseline 08/04/2025 Anemia, chronic disease (ICD-10 - D63.8) 05/17/2025 Moderate episode of recurrent major depressive [...] - Screening 5 MRA : Head 06/26/2024 Echocardiogram 08/09/2025 Cardiolite, Adenosine 03/23/2013 Mammogram : Bilateral 01/10/2021 Mammogram : Bilateral 09/06/2020 Mammogram : Bilateral 08/16/2015 C-CBC 03/24/2020 C-CMP 03/24/2020 C-CMP 02/07/2021 C-TSH 03/24/2020 C-VITAMIN B12 03/24/2020 C-THYROID PROFILE 04/28/2019 C-THYROID PROFILE 03/12/2017 C-URINE CULTURE 03/05/2019 C-VITAMIN D, 25-HYDROXY 03/24/2020 VENIPUNCT, ROUTINE* 03/13/2016 M-Urinalysis and Microscopic 08/04/2025 M-Urine Culture 08/04/2025 Culture, Urine 05/16/2022 Culture, Urine 09/04/2022 Future Test Test Name Order Date M-Complete Blood Count Auto Diff 019 M-Comprehensive Metabolic Panel 08/10/20 19 Insurance Providers Payer Name Payer Address Payer Phone Subscriber Number Group Number Insured Name Patient Relationship to Insured Coverage Start Date Coverage End Date [employer] MED[employer]ARE DUAL [address] [address] [place] [address] [id number] Chacha Hayward Self - patient is the [...] 2012 Hospitalization History Reason Date(Month/Year) [facility] for 10 day 06/2022 UTI , blood work 05/2022 UTI 06/2021 ELINA 06/2020 pneumonia 04/2020 dehydration 09/2017 fluid 2009
--- OUTSIDE RECORDS SUMMARY | 2025-08-18 15:19 | XMS_ITS | Encounter Summary ---
Author Organization [facility] Address [address] [place] [address] Care Team Providers Care Banquet Supervisor Name Role Phone Winston Webster MD Primary Care Provider [phone] Liliana Gar APRN Primary Care Provider [phone] Reason for Visit * Reason Comments Med Refill Encounter Details Date Type Department Care Team ([facility] st Contact Info) Description 05/14/2024 Refill Professional [facility] Nephrology, Bone & Mineral Metabolism [address], [address] [place] [address] Enmanuel Castillo MD [address] [place] [address] Social History Tobacco Use Types [...] could the lab orders be sent to [facility] in [place]? Best contact number and optimal time of day to reach caller: Pt [phone] Please call if orders sent so pt will know to go to the lab. Note: Please do not reply to this message. Follow-up communication and further actions as a result of this message need to be communicated with the patient directly, if the patient is not active onMyChart. If the patient is active on MyChart, they will receive notification of the communication/outcome via [employer]. * Telephone Encounter - No Hancock LPN - 05/14/2024 7:23 AM EDT Refilled 04/17/24 #180 tablets for 3 months supply documented in this encounter Plan of Treatment Upcoming Encounters Date Type Department Care Team (Late st Contact Info) Description 09/13/2025 2:20 PM EDT Office Visit [facility] Nephrology, Bone & Mineral Metabolism [address], [address] [place] [address] 10/22/2025 10:45 AM EST Appointment [facility] [address], [address] [place] [address] 10/22/2025 12:15 PM EST Office Visit [facility] [address], [address] [place] [address] Yan Rowland MD [address] [place] [address] 11/19/2025 9:45 AM EST Office Visit [facility] Medicine Specialties [address], [address] [place] [address] EddYareli, DO [address] [place] [address] documented as of this encounter Visit Diagnoses Not on filedocumented in this encounter Additional Health Concerns Assessment Noted Time A fall risk assessment has been complete d for the patient 04/17/2024 11:18 AM EDT A Body Mass Index follow-up plan has been documented for the patient 04/17/2024 11:40 AM EDT documented as of this encounter Care Teams Banquet Supervisor Relationship Specialty Start Date End Date Winston Webster MD [address] [place] [address] PCP - General 04/14/21 02/22/25 Liliana Gar, LETTER CARRIER [address] [place] [address] PCP - General 02/23/25 documented as of this encounter
== END 2025-08-18 23:59 | disposition home or self-care (01) ==
LOC: RT 15:17
PROVIDERS: PCP Nurse Practitioner Family; Visit Provider Nurse Practitioner Family
DX: I07.1 Rheumatic tricuspid insufficiency (principal)
CPT/HCPCS: 93306

== ENCOUNTER 2025-08-31 09:20 | Outpatient (CLI) | payer MEDICARE, SELFPAY ==
--- OUTSIDE RECORDS SUMMARY | 2025-03-06 17:30 | XMS_ITS ---
Author Organization [facility] D GINNY Address [address] [place] [address] Care Team Providers Care Highway Maintenance Technician Name Role Phone Winston Webster Primary Care Provider Migration, Provider Unavailable Unavailable Allergies Allergen (clinical drug ingredient) Drug/Non Drug Allergy documented on EMR Reaction Allergy Type Onset Date Status IV DYES (uncoded) Unknown Allergy Ac tive Latex LATEX (uncoded) Unknown Allergy Acti ve angiotensin-converting enzyme inhibitor (FN) ANDREWS Inhibitors Unknown Drug Allergy Acti ve morphine Morphine Unknown Drug Allergy Active REASON FOR VISIT [facility] To [facility] Conversion Encounter Medications Medication SIG (Take, [...] review and pick correct [facility]ul[facility]. If intended option is not shown, [...] tab(s) orally every 6 hours Active Nystatin 018250 UNIT/GM 1 truong applied topically 3 times [...] Active Encounters Encounter Location Date Provider Diagnosis [facility] PED [place] [address] [facility] [address] [place] [address] 03/06/2025 Provider Migration Recurrent UTI N39.0 Assessments [...] Chacha HAYWARD ADOB:[birth year] (75 yo F)Acc No.[id number]:03/06/2025 Patient: Alejandra ELIZABETHChacha Provider: Yobany Mancera :1950 A ge:75 Y S ex:Female Date:03/06/2025 Address:[facility] [address], [id number] Pcp:Winston Webster Subjective: * Chief Complaints: * 1 . Multum To Medispan Conversion Encounter. * Medical History: * Medications: T aking Nystatin 137817 UNIT/GM Powder 1 truong applied topically 3 [...] Electronic signature of Prov ider Migration on 08/31/2025 at 09:37 AM EDT Sign off status: Pending * Provider: Yobany valderrama Migration Date: 0 03/06/2025 Generated for Printi ng/Ronda/Daviditting on: 0 08/31/2025 09:37 AM EDT
--- OUTSIDE RECORDS SUMMARY | 2025-08-04 06:30 | XMS_ITS ---
Author Organization [facility] PE D GINNY Address [address] [facility] [address] [facility] [address] [place] [address] Care Team Providers Care Movie Star Name Role Phone Darin Winston Primary Care Provider Amber Lechuga Unavailable [phone] Allergies Allergen (clinical drug ingredient) Drug/Non Drug Allergy documented on EMR Reaction Allergy Type Onset Date Status IV DYES (uncoded) Unknown Allergy Ac tive Latex LATEX (uncoded) Unknown Allergy Acti ve angiotensin-converting enzyme inhibitor (FN) ANDREWS Inhibitors Unknown Drug Allergy Acti ve morphine Morphine Unknown Drug Allergy Active Reason For Referral Reason Echo at [facility] Diagnosis 1 OSWALD (dyspnea on exer tion) (R06.09) Referral Organization [facility] Referring Provider First Name Amber Referring Provider Last Name Alexandrea Referring Provider Speciality Family Pra ctice Referred Organization [facility] Referred Address [address] [place] [address], [place], [place],[address], Referred Provider Specialty Diagnostic R adiology General Notes Amanda Rae 2024 12:15:53 PM >SENT TO [facility] TO SCHEDULED NO AUTH NEEDED FOR CPT 47022 Referral Priority Routine REASON FOR VISIT UTI [...] 08/04/2025 Encounters Encounter Location Date Provider Diagnosis [address] [address] 08/04/2025 Amber Lechuga Dysuria R30.0 ; OSWALD (dyspnea on exertion) R06.09 ; Palpitations R00.2 and Anemia, chronic disease D63.8 Assessments Encounter Date Diagnosis (ICD Code) Assessment Notes Treatment Notes Treatment Clinical Notes Section Notes 08/04/2025 Dysuria (ICD-10 - R30.0) unable to leave urine specimen today...supplies provided and will take this later to [facility] lab Start oral antibiotics as noted, renal [...] Referral Date Details 08/08/2025 08/08/2025, Echo at [facility], [address] [place] [facility] [address] [facility], [place], [address], Next Appt Details Follow Up: pending results, Reason: Progress Notes * GUSMarbella ALAMOith ADOB:[birth year] (75 yo F)Acc No.[id number]:08/04/2025 Progress Notes Patient: Chacha MONDRAGON Provider: ELIZABETH Higgins :1950 A ge:75 Y S ex:Female Date:08/04/2025 Address:[facility] [place], [place] Pcp:Winston Webster Subjective: * Chief Complaints: * [...] UTI 06/2021, UTI , blood work 05/2022, [facility] for 10 day 06/2022. * Family History: [...] has since . One child lives in [place], another daughter lives in [place]. Lives [facility], has lots of problems with mobility [...] update Echo ? Referral To: Reason:Echo at [facility] * Procedure Codes: 9 3000 EKG WITH INTERP. * Follow Up: p ending results * * Sign off status: Completed true * Provider: ELIZABETH Higgins Date: 08/04/2025 Generated for Timur lr/Ronda/eTransmitting on: 08/31/2025 09:37 AM EDT History and Physical Notes * [...] Not alma 08/08/2025 Amber Lechuga Echo at [facility]
--- OUTSIDE RECORDS SUMMARY | 2025-08-09 08:11 | XMS_ITS ---
Author Organization [facility] Address [address] [facility] 36 [facility] [address] [place] [address] Care Team Providers Care Lead Burner Supervisor Name Role Phone Winston Webster Primary Care Provider Amber Lechuga [facility] [phone] Results Component Value Reference Range Notes Echocardiogram Reviewed date:08/30/2025 02:52:28 PM Interpretation: Performing Lab: Notes/Report: Echocardiogram Reviewed date:08/30/2025 02:52:28 PM Interpretation: Performing Lab: Notes/Report: Encounters Encounter Location Date Provider Diagnosis [facility] [address] [place] [address] [facility] [address] [place] [address] 08/09/2025 Amber Lechuga Dyspnea on exertion R06.09 Assessments Encounter Date Diagnosis (ICD Code) Assessment Notes Treatment Notes Treatment Clinical Notes Section Notes 08/09/2025 Dyspnea on exertion (ICD-10 - R06.09) Plan Of Treatment No Information Progress Notes * Chacha HAYWARD ADOB:[birth year] (75 yo F)Acc No.[id number]:08/09/2025 Patient: Chacha MONDRAGON :1950 A ge:75 Y S ex:Female Address:[facility] [place], [address] Subjective: * Chief Complaints: * * Medical History: * Surgical History: * Hospitalization/Major Diagno stic Procedure: * Medications: Objective: * Vitals: * Physical Examination: Assessment: * Assessment: 1. D yspnea on exertion - R06.09 Plan: * Treatment: * * Procedure Codes: * true * Date: Generated for Timur lr/Ronda/Toby on: 0 08/31/2025 09:36 AM EDT
--- OUTSIDE RECORDS SUMMARY | 2025-08-31 09:36 | XMS_ITS | Encounter Summary ---
Author Organization [facility] Address [address] [place] [address] Care Team Providers Care Ruby Software Developer Name Role Phone Winston Webster MD Primary Care Provider [phone] Liliana Gar APRN Primary Care Provider Encounter Details Date Type Department Care Team (Late Contact Info) Description 06/12/2024 Orders Only External Location [address] [place] [address] Provider, External Social History Tobacco Use Types [...] 09/13/2025 2:20 PM EDT Office Visit [facility] Nephrology, Bone & Mineral Metabolism [address], [address] [place] [address] 10/22/2025 10:45 AM EST Appointment [facility] [address], 1st [place] [address] 10/22/2025 12:15 PM EST Office Visit [facility] [address], [address] [place] [address] Yan Rowland MD [address] [place] [address] 11/19/2025 9:45 AM EST Office Visit [facility] Medicine Specialties [address] [place] [address] Yareli Puga DO [address] [place] [address] documented as of this encounter Procedures Procedure Name Priority Date/Time Associated Diagnosis Comments US OUTSIDE IMAGES 06/12/2024 3:42 PM EDT documented in this encounter Results * US OUTSIDE IMAGES (06/12/2024 3:42 PM EDT) Anatomical Region Laterality Modality Ultrasound 06/12/2024 3:4 2 PM EDT us External Provider IMG US [...] documented as of this encounter Care Teams Ruby Software Developer Relationship Specialty Start Date End Date Winston Webster MD [address] [place] [address] PCP - General 04/14/21 02/22/25 Liliana Gar, YURIY [address] [place] [address] PCP - General 02/23/25 documented as of this encounter
--- OUTSIDE RECORDS SUMMARY | 2025-08-31 09:36 | XMS_ITS | Encounter Summary ---
Author Organization [facility] Address [address] [place] [address] Care Team Providers Care Chore Worker Name Role Phone Winston Webster MD Primary Care Provider [phone] Liliana Gar APRN Primary Care Provider [phone] Encounter Details Date Type Department Care Team (Late Contact Info) Description 06/12/2024 Orders Only External Location [address] [place] [address] Provider, External Social History Tobacco Use Types [...] 09/13/2025 2:20 PM EDT Office Visit Professional [facility] Nephrology, Bone & Mineral Metabolism [address], [address] [place] [address] 10/22/2025 10:45 AM EST Appointment [facility] [address], [address] [place] [address] 10/22/2025 12:15 PM EST [facility] Visit [facility] [address], [address] [place] [address] Yan Rowland MD [address] [place] [address] 11/19/2025 9:45 AM EST Office Visit [facility] Medicine Specialties [address], [address] [place] [address] Yareli Puga DO [address] [place] [address] documented as of this encounter [...] documented as of this encounter Care Teams Chore Worker Relationship Specialty Start Date End Date Winston Webster MD [address] [place] [address] PCP - General 04/14/21 02/22/25 Liliana Gar APRN [address] [place] [address] PCP - General 02/23/25 documented as of this encounter
--- OUTSIDE RECORDS SUMMARY | 2025-08-31 09:36 | XMS_ITS | Clinical Summary ---
Author Organization [facility] Address [address] [place] [address] Care Team Providers Care Hydraulic Miner Name Role Phone Unavailable Primary Care Provider [...] Adults (1 - 1-dose 75+ series) 4 INFLUENZA VACCINE 07/02/2025 COVID-19 Vaccine (2023- season) 2025
--- OUTSIDE RECORDS SUMMARY | 2025-08-31 09:36 | XMS_ITS | Encounter Summary ---
Author Organization [facility] Address [address] [place] [address] Care Team Providers Care Broiler Manager Name Role Phone Winston Webster MD Primary Care Provider [phone] Liliana Gar APRN Primary Care Provider [phone] Reason for Visit * Reason Comments Med Refill Encounter Details Date Type Department Care Team ([facility] st Contact Info) Description 05/14/2024 Refill Professional [facility] Nephrology, Bone & Mineral Metabolism [address], [address] [place] [address] Enmanuel Castillo MD [address] [place] [address] Social History Tobacco Use Types [...] could the lab orders be sent to [facility] in [place]? Best contact number and optimal time of day to reach caller: Pt [phone] Please call if orders sent so pt will know to go to the lab. Note: Please do not reply to this message. Follow-up communication and further actions as a result of this message need to be communicated with the patient directly, if the patient is not active onMyChart. If the patient is active on MyChart, they will receive notification of the communication/outcome via [employer]. * Telephone Encounter - No Hancock LPN - 05/14/2024 7:23 AM EDT Refilled 04/17/24 #180 tablets for 3 months supply documented in this encounter Plan of Treatment Upcoming Encounters Date Type Department Care Team (Late st Contact Info) Description 09/13/2025 2:20 PM EDT Office Visit [facility] Nephrology, Bone & Mineral Metabolism [address], [address] [place] [address] 10/22/2025 10:45 AM EST Appointment [facility] [address], [address] [place] [address] 10/22/2025 12:15 PM EST Office Visit [facility] [address], [address] [place] [address] Yan Rowland MD [address] [place] [address] 11/19/2025 9:45 AM EST Office Visit [facility] Medicine Specialties [address], [address] [place] [address] EddYareli, DO [address] [place] [address] documented as of this encounter Visit Diagnoses Not on filedocumented in this encounter Additional Health Concerns Assessment Noted Time A fall risk assessment has been complete d for the patient 04/17/2024 11:18 AM EDT A Body Mass Index follow-up plan has been documented for the patient 04/17/2024 11:40 AM EDT documented as of this encounter Care Teams Broiler Manager Relationship Specialty Start Date End Date Winston Webster MD [address] [place] [address] PCP - General 04/14/21 02/22/25 Liliana Gar, DERMATOLOGY SPECIALIST [address] [place] [address] PCP - General 02/23/25 documented as of this encounter
--- OUTSIDE RECORDS SUMMARY | 2025-08-31 09:36 | XMS_ITS | Encounter Summary ---
Author Organization [facility] Address [address] [place] [address] Care Team Providers Care Cork Tile Floor Layer Name Role Phone Liliana Gar YURIY Primary Care Provider [phone] Reason for Referral * Consultation (Routine) - Closed Specialty Diagnoses / Procedures Referred By Gaby presley Referred To Contact Neurosurgery Diagnoses Brain mass Emilee Tejeda MD [address] [facility] [address] [place] [address] Phone: tel: fax: Referral ID Status Reason Start Date Expiration Date V isits Requested Visits Authorized [id number] Closed Specialty Services Required 02/26/2025 08/28/2026 1 1 Encounter Details Date Type Department Care Team (Late st Contact Info) Description 02/26/2025 Community [facility] Community [facility] [address] [place] [address] Emilee Tejeda MD [address] [place] [address] Brain mass (Primary Dx) Social History [...] Description 09/13/2025 2:20 PM EDT Office Visit [facility] Nephrology, Bone & Mineral Metabolism [address] [facility], [address] [place] [address] 10/22/2025 10:45 AM EST Appointment [facility] [address], 1st [place] [address] 10/22/2025 12:15 PM EST Office Visit [facility] [address], [address]st [place] [address] Yan Rowland MD [address] [place] [address] 11/19/2025 9:45 AM EST Office Visit [facility] Medicine Specialties [address], 2nd [place] [address] Yareli Puga DO [address] [place] [address] Scheduled Referrals Name Type Priority [...] documented as of this encounter Care Teams Cork Tile Floor Layer Relationship Specialty Start Date End Date Liliana Gar, YURIY [address] [place] [id number] PCP - General 02/23/25 documented as of this encounter
--- OUTSIDE RECORDS SUMMARY | 2025-08-31 09:36 | XMS_ITS | Encounter Summary ---
Author Organization [facility] Address [address] [place] [address] Care Team Providers Care Pattern Weaver Name Role Phone Winston Webster MD Primary Care Provider [phone] Liliana Gar APRN Primary Care Provider [phone] Encounter Details Date Type Department Care Team (Late Contact Info) Description 06/12/2024 Orders Only External Location [address] [place] [address] Provider, External Social History Tobacco Use Types [...] 09/13/2025 2:20 PM EDT Office Visit [facility] Nephrology, Bone & Mineral Metabolism [address] [facility], [address] [place] [address] 10/22/2025 10:45 AM EST Appointment [facility]iology [address], 1st [place] [address] 10/22/2025 12:15 PM EST Office Visit [facility] [address], [address]st [place] [address] Yan Rowland MD [address] [place] [address] 11/19/2025 9:45 AM EST Office Visit [facility] Medicine Specialties [address], 2[address] [place] [address] Yareli Puga DO [address] [place] [address] documented as of this encounter [...] documented as of this encounter Care Teams Pattern Weaver Relationship Specialty Start Date End Date Winston Webster MD [address] [place] [address] PCP - General 04/14/21 02/22/25 Liliana Gar, DOUGH PUNCHER [address] [place] [address] PCP - General 02/23/25 documented as of this encounter
--- OUTSIDE RECORDS SUMMARY | 2025-08-31 09:36 | XMS_ITS | Encounter Summary ---
Author Organization [facility] Address [address] [place] [address] Care Team Providers Care Fitness Management Director Name Role Phone Winston Webster MD Primary Care Provider [phone] Liliana Gar APRN Primary Care Provider [phone] Encounter Details Date Type Department Care Team (Late Contact Info) Description 06/12/2024 Orders Only External Location [address] [place] [address] Provider, External Social History Tobacco Use Types [...] 09/13/2025 2:20 PM EDT Office Visit [facility] Nephrology, Bone & Mineral Metabolism [address] [facility], [address] [place] [address] 10/22/2025 10:45 AM EST Appointment [facility]iology [address], 1st [place] [address] 10/22/2025 12:15 PM EST Office Visit [facility] [address], 1st [place] [address] Yan Rowland MD [address] [place] [address] 11/19/2025 9:45 AM EST Office Visit [facility] Medicine Specialties [address], 2nd [place] [address] Yareli Puga DO [address] [place] [address] documented as of this encounter [...] documented as of this encounter Care Teams Fitness Management Director Relationship Specialty Start Date End Date Winston Webster MD [address] [place] [address] PCP - General 04/14/21 02/22/25 Liliana Gar APRN [address] [place] [address] PCP - General 02/23/25 documented as of this encounter
--- OUTSIDE RECORDS SUMMARY | 2025-08-31 09:37 | XMS_ITS | Patient Health Record ---
Author Organization [facility] Address [address] [place] [address] Care Team Providers Care Entry Processor Name Role Phone Winston Webster Primary Care Provider Amber Lechuga Unavailable [phone] Liliana Avalos Unavailable [phone] Migration, Provider Unavailable Unavailable Allergies Allergen (clinical drug ingredient) Drug/Non Drug Allergy documented on EMR Reaction Allergy Type Onset Date Status IV DYES (uncoded) Unknown Allergy Ac tive Latex LATEX (uncoded) Unknown Allergy Acti ve angiotensin-converting enzyme inhibitor (FN) ANDREWS Inhibitors Unknown Drug Allergy Acti ve morphine Morphine Unknown Drug Allergy Active Results Component Value Reference Range Notes Echocardiogram Reviewed date:08/30/2025 02:52:28 PM Interpretation: Performing Lab: Notes/Report: Echocardiogram Reviewed date:08/30/2025 02:52:28 PM Interpretation: Performing Lab: Notes/Report: CBC (INCLUDES DIFF/PLT) (639 9) Reviewed date:05/19/2025 10:59:23 AM Interpretation: Performing Lab:CB, [facility] [address], [place] Olivier Albert Notes/Report: NON-FASTING; NON-FASTING; NON-FASTING WHITE [...] MPV 9.7 7.5-12.5 fL ABSOLUTE NEUTROPHILS 4762 1080-7128 cells/uL ABSOLUTE LYMPHOCYTES 6704 695-8787 cells/uL ABSOLUTE MONOCYTES 531 200-950 cells/uL ABSOLUTE EOSINOPHILS 32 15-500 cells/uL ABSOLUTE BASOPHILS 32 0-200 cells/uL NEUTROPHILS 74.4 LYMPHOCYTES 16.3 MONOCYTES 8.3 EOSINOPHILS 0.5 BASOPHILS 0.5 TSH W/REFLEX TO FT4 (03419) Reviewed date:05/19/2025 10:59:23 AM Interpretation: Performing Lab:[facility] Olivier Albert Notes/Report: NON-FASTING; NON-FASTING; NON-FASTING NON-FASTING; NON-FASTING; NON-FASTING TSH W/REFLEX TO FT4 0.11 0.40-4.50 mIU/L T4, FREE 1.0 0.8-1.8 ng/dL COMPREHENSIVE METABOLIC PANE (31948) Reviewed date:05/19/2025 10:59:23 AM Interpretation: Performing Lab:[facility] [facility] Olivier Albert Notes/Report: NON-FASTING; NON-FASTING; NON-FASTING GLUCOSE [...] 12 10-35 U/L ALT 5 6-29 U/L Reason For Referral Reason Neurology - Dr. Key altamirano Call Daughter to Schedule appt/ Kellee [phone] Diagnosis 1 Brain lesion (G93.9) Referral Organization [facility] [place] Referring Provider First Name Liliana Referring Provider Last Name Robbie Referring Provider [facility] ctice Referred Organization [facility] Referred Address [address], [place], [place],[address], Referred Provider Specialty Neurology General Notes Amanda Rae 2023 03:11:02 PM >Referral sent to Dr. Tejeda Referral Priority Routine Reason [facility] Diagnosis 1 Brain lesion (G93.9) Diagnosis 2 Urinary incontinence , unspecified type (R32) Diagnosis 3 Psychophysiologic in somnia (F51.04) Diagnosis 4 Chronic kidney disea se, stage 4 (severe) (N18.4) Diagnosis 5 Lupus erythematosus (L93.0) Referral Organization [facility] SHELLEY PRICE Referring Provider First Name Liliana Referring Provider Last Name Robbie [facility] Referral Priority Routine Reason Needs Federated Petty sportation scheduled for Rheumatology [address] Referral Organization [facility] SHELLEY GROSS Referring Provider First Name Winston Referring Provider Last Name Darin Referring Provider Speciality Internal M edicine Referred Provider Specialty Transportati on General Notes Amanda Rae 2024 10:40:55 AM >waiting on form Referral Priority Routine Referral Appointment Date 05/06/2025 Reason wheelchair Diagnosis 1 Weakness (R53.1) Referral Organization [facility] SHELLEY PRICE Referring Provider First Name Liliana Referring Provider Last Name Robbie Referring Provider [facility] Referred Provider Specialty DME General Notes Amanda Rae 2024 01:00:49 PM >Has [employer] HMO can't do Romy- sent to [facility] Referral Priority Routine Reason Echo at [facility] Diagnosis 1 OSWALD (dyspnea on exer tion) (R06.09) Referral Organization [facility] SHELLEY PRICE Referring Provider First Name Amber Referring Provider Last Name Alexandrea Referring Provider Speciality Family Cristian mckeon Referred Organization [facility] Referred Address [address] [facility] [address] [facility], [place], [place],[address],[place] Referred Provider Specialty Diagnostic R adiology General Notes Amanda Rae 2024 12:15:53 PM >SENT TO [facility] TO SCHEDULED NO AUTH NEEDED FOR CPT 12501 Referral Priority Routine Medications Medication SIG (Take, [...] 90 days 05/18/2025 Active Cholecalciferol 50 MCG (2000 UT) 1 [...] Vaccine Route Administration Date Status Comme nts Prevnar PCV-13 (Pneumococcal conjugate 13) IM Intramuscular [...] Status W/U Status Risk Notes Problem Hypocalcemia (3355378) Hypocalcemia (E83.51) Active confirmed Problem Psychophysiologic insomnia (371651421) Psychophysiologic insomnia (F51.04) Active confirmed Problem Chronic pain (68980972) Other chronic pain (G89.29) Active confirmed Problem 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) Active confirmed Problem Irritable bowel syndrome with diarrhea (460114803) Irritable bowel syndrome with diarrhea (K58.0) Active confirmed Problem 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) Active confirmed Problem Osteoporosis (23104649) Other osteoporosis without current pathological fracture (M81.8) Active confirmed Problem Chronic kidney disease stage 4 (116736376) Chronic kidney disease, stage 4 (severe) (N18.4) Active confirmed Problem Disorder of kidney and/or ureter (922818521) Other specified disorders of kidney and ureter (N28.89) Active confirmed Problem Mixed anxiety and depressive disorder (071876283) Depression with anxiety (F41.8) Active confirmed Problem Hypothyroidism (37231086) Hypothyroidism (acquired) (E03.9) Active confirmed Problem Neuropathy (119351802) Neuropathy (G62.9) Active confirmed Problem Essential hypertension (09523247) Essential hypertension (I10) Active confirmed Problem Seasonal allergy (194050592) Seasonal allergies (J30.2) Active confirmed Problem Arthropathy (762505800) Arthritis involving multiple sites (M12.9) Active confirmed Problem Gastroesophageal reflux disease without esophagitis (419166259) Gastroesophageal reflux disease without esophagitis (K21.9) Active confirmed Problem Abnormal mammogram (775973776) Abnormal mammogram (R92.8) Active confirmed Problem Lesion of brain (452452530) Brain lesion (G93.9) Active confirmed Problem Lupus erythematosus (732830333) Lupus erythematosus (L93.0) Active confirmed Problem Dyspnea on exertion (48498131) Dyspnea on exertion (R06.09) Active confirmed Problem Bilateral tinnitus (3871680241718) Tinnitus of both ears (H93.13) Active confirmed Problem Generalized anxiety disorder (82695099) ANGE (generalized anxiety disorder) (F41.1) Active confirmed Problem Chronic kidney disease stage 4 (517663107) Chronic kidney disease, stage IV (severe) (N18.4) Active confirmed Problem Lupus nephritis (25413945) 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) Active confirmed Problem Moderate recurrent major depression (56971581) Moderate episode of recurrent major depressive disorder (F33.1) Active confirmed Problem Allergic rhinitis caused by pollen (80590710) Seasonal allergic rhinitis due to pollen (J30.1) Active confirmed Problem Essential tremor (587577088) Tremor, essential (G25.0) Active confirmed Problem Anemia of chronic disease (076502669) Anemia, chronic disease (D63.8) Active confirmed Problem Urinary incontinence (544258375) Urinary incontinence, unspecified type (R32) Active confirmed Problem Seasonal allergic rhinitis (858012935) Acute seasonal allergic rhinitis (J30.2) Active confirmed Problem Osteoarthritis of knee (900425426) Localized osteoarthritis of knees, bilateral (M17.0) Active confirmed Problem Acute systolic heart failure (851162395) Acute systolic congestive heart failure (I50.21) Active confirmed Problem COVID-19 (575365756) COVID-19 (U07.1) Active confirmed Problem Chronic kidney disease stage 5 (789756546) Chronic kidney failure, stage 5 (N18.5) Active confirmed Vital Signs Heart Rate 105 /min 08/04/2025 Temperature 97.5 degrees Fahrenheit 08/04/2025 Oximetry 99 08/04/2025 Blood pressure diastolic 90 mm Hg 08/04/2025 Height 61 in 08/04/2025 Blood pressure systolic 146 mm Hg 08/04/2025 Weight 124 lbs 08/04/2025 BMI 23.43 kg/m2 08/04/2025 Encounters Encounter Location Date Provider Diagnosis [facility] [address] [facility] [address] [place], [place] [address] 03/06/2025 Provider Migration Recurrent UTI N39.0 [facility] [address] [address] 05/17/2025 Liliana McNees Hypothyroidism (acquired) E03.9 ; [...] anxiety disorder) F41.1 and Essential hypertension I10 [facility] [address] [address] 08/04/2025 Amber Lechuga Dysuria R30.0 ; OSWALD (dyspnea on exertion) R06.09 ; Palpitations R00.2 and Anemia, chronic disease D63.8 [facility] [address] [place] [address] 10/05/2024 Winston Webster [facility] [address] [place] [address] 10/08/2024 Liliana McNees [facility] [address] [facility] [address] [place] [address] 05/17/2025 Liliana McNees [facility] [address] [facility] [address] [place] [address] 05/17/2025 Liliana Avalos [facility] [place] [address] [place], [place] [address] 05/19/2025 Winston Webster [facility] [address] [place], [place] [address] 08/09/2025 Amber Lechuga Dyspnea on exertion R06.09 [facility] [address] [place], [place] [address] 08/10/2025 Amber Lechuga Assessments Encounter Date Diagnosis [...] provided and will take this later to [facility] lab Start oral antibiotics as noted, [...] End Date [employer] MEDICARE DUAL [address] [address] [place] [address] [id number] Chacha Hayward Self - patient is the [...] 2012 Hospitalization History Reason Date(Month/Year) [facility] for 10 day 06/2022 UTI , blood work 05/2022 UTI 06/2021 ELINA 06/2020 pneumonia 04/2020 dehydration 09/2017 fluid 2009
--- OUTSIDE RECORDS SUMMARY | 2025-08-31 09:38 | XMS_ITS | Clinical Summary ---
Author Organization [facility] Address [address] [place] [address] Care Team Providers Care Heel Cutter Name Role Phone Liliana Gar BUSINESS SALES CONSULTANT Primary Care Provider [phone] Allergies Active Allergy Reactions Criticality Noted Date [...] 5 Active cholecalciferol (Vitamin D-3) 50 MCG (2000 UT) capsule TAKE 1 CAPSULE EVERY DAY 90 capsule 3 5 Active darbepoetin alondra (Aranesp, Albumin Free,) 100 MCG/ML injection Inject 1 mL under the skin every 28 days. 1 mL 1 5 Active Active Problems Problem Noted Date Diagnosed Date Therapeutic drug monitoring 01/17/2024 Osteoporosis 11/19/2016 Renal osteodystrophy 02/04/2015 Anemia in [...] 11/24/202411/02 UTI (urinary tract infection) 11/24/2024 11/24/2024 High risk medication use 01/17/2024 COVID-19 10/18/2022 08/22/2025 Encounters Date Type Department Care Team Description [facility] [address] [place] [address] Lena Leon MD 06/03/2025 Refill [facility] Medicine Specialties [address], [address]nd [place] [address] Tea Hagen MD Systemic lupus erythematosus, organ or system involvement unspecified ([facility]) 06/02/2025 Telephone [facility] [address], 1st [place] [address] Roosevelt Blackwood MD HCN - [...] David Hypertension Father David Breast cancer Mother Roosevelt Diabetes Mother Roosevelt Hypertension Mother Roosevelt Lung cancer Mother Roosevelt Skin cancer Mother Roosevelt Alcohol abuse Other 1 Cancer Other 2 Colon cancer Other 3 Diabetes Other 4 Drug abuse Other 5 Hyperlipidemia Other 6 Hypertension Other 7 Hyperthyroidism Other 8 Hypothyroidism Other 9 Lung cancer Other 10 Ovarian cancer Other 11 Cancer Sister Roxane Hahn Relation Name Status Comments Cousin Father David Mother Roosevelt Other 1 Other 2 Other 3 Other [...] Frequency of Binge Drinking Not on file 060 04/2025 PHQ-2A Answer Date Recorded Patient Health [...] 2:20 PM EDT Office Visit [facility] Nephrology, Bone & Mineral Metabolism [address] [facility], [address] [place] [address] 10/22/2025 10:45 AM EST Appointment [facility]iology [address], 1st [place] [address] 10/22/2025 12:15 PM EST Office Visit [facility] [address], 1st [place] [address] Yan Rowland MD [address] [place] [address] 11/19/2025 9:45 AM EST Office Visit [facility] Medicine Specialties [address], [address]nd [place] [address] Yareli Puga DO [address] [place] [address] Health Maintenance Due Date Last Done Comments [facility]-Hepatitis C Screening 1950 [facility]-Medicare Annual Wellness (AWV) 1950 [facility]-Infant/Child/Adol SDOH Screenings 1950 [facility]- SDOH Screenings 1967 [facility]-Adult SDOH Screenings 1967 [facility]-DTaP,Tdap,and Td Vaccines (1 - Tdap) 02/21/1968 [facility]-Zoster Vaccines (1 of 2) 02/21/1968 [id number] Vaccine (3 - Moderna risk series) 03/23/2021 [...] Jacqui ging Narrative 01/11/2024 2:27 PM EST [facility] - [facility] & Mineral Metabolism [facility] [address] [place] [address] DXA Bone Densitometry Report: [DAY/DATE] BMD test performed using the dooub DXA System (analysis version: 14.10) manufactured by [employer]. REFERRING PROVIDER: Dr. Castillo, Enmanuel Heller MD [...] bone density change or response to treatment. Enmanuel Castillo MD IMG DXA PROCEDURES Final Resu lt from Last 3 Months or Most Recently Relevant to Health Maintenance Insurance [place] [employer] MEDICARE Care Teams Heel Cutter Relationship Specialty Start Date End Date Liliana Gar APRN [address] [facility] [address] [place] [address] PCP - General 02/23/25
--- OUTSIDE RECORDS SUMMARY | 2025-08-31 09:38 | XMS_ITS | Encounter Summary ---
Author Organization [facility] Address [address] [place] [address] Care Team Providers Care Residential Case Manager Name Role Phone Winston Webster MD Primary Care Provider [phone] Liliana Gar APRN Primary Care Provider [phone] Reason for Visit * Reason Comments Med Refill Encounter Details Date Type Department Care Team (Late st Contact Info) Description 05/04/2022 Refill [facility] [address] [place] [address] Enmanuel Castillo MD [address] [place] [address] Social History Tobacco Use Types Packs/Day [...] 09/13/2025 2:20 PM EDT Office Visit [facility] Nephrology, Bone & Mineral Metabolism [address] [facility], [address] [place] [address] 10/22/2025 10:45 AM EST Appointment [facility] [address], 1st [place] [address] 10/22/2025 12:15 PM EST Office Visit [facility] [address], [address] [place] [address] Yan Rowland MD [address] [place] [address] 11/19/2025 9:45 AM EST Office Visit [facility] Medicine Specialties [address], [address] [place] [address] Yareli Puga DO [address] [place] [address] documented as of this encounter Visit Diagnoses Not on filedocumented in this encounter Additional Health Concerns Assessment Noted Time A fall risk assessment has been complete d for the patient 11/28/2021 1:17 PM EST documented as of this encounter Care Teams Residential Case Manager Relationship Specialty Start Date End Date Winston Webster MD [address] [place] [address] PCP - General 04/14/21 02/22/25 Liliana Gar, YURIY [address] [place] [address] PCP - General 02/23/25 documented as of this encounter
[2025-08-31 10:06] LABS: Hematocrit 25.7 % (37.0-47.0); Hemoglobin 7.6 g/dL (12.2-16.2); Immature Granulocytes % 11.3 %; Mean Corpuscular HGB Conc 29.6 g/dL (31.8-35.4); Mean Corpuscular Hemoglobin 27.4 pg (27.0-31.2); Mean Corpuscular Volume 92.8 fl (81-99); Nucleated Red Blood Cells % 0 %; Platelet Count 294 K/mm3 (142-424); Red Blood Count 2.77 M/mm3 (4.20-5.40); Red Cell Distribution Width-SD 51.9 fL; White Blood Count 5.2 K/mm3 (4.8-10.8)
[2025-08-31 10:39] LABS: Total Cells Counted 100
[2025-08-31 10:40] LABS: RBC Morphology Normal
== END 2025-08-31 23:59 | disposition home or self-care (01) ==
LOC: LAB 09:21
PROVIDERS: PCP Nurse Practitioner Family; Visit Provider Internal Medicine Nephrology
DX: N18.4 Chronic kidney disease, stage 4 (severe) (principal); D63.8 Anemia in other chronic diseases classified elsewhere
CPT/HCPCS: 36415; 85007; 85025

== ENCOUNTER 2025-09-06 09:48 | Outpatient (CLI) | payer MEDICARE, SELFPAY ==
--- OUTSIDE RECORDS SUMMARY | 2025-03-06 17:30 | XMS_ITS ---
Author Organization [facility] D GINNY Address [address] [place] [address] Care Team Providers Care School Fundraising Director Name Role Phone Winston Webster Primary Care Provider Migration, Provider Unavailable Unavailable Allergies Allergen (clinical drug ingredient) Drug/Non Drug Allergy documented on EMR Reaction Allergy Type Onset Date Status IV DYES (uncoded) Unknown Allergy Ac tive Latex LATEX (uncoded) Unknown Allergy Acti ve angiotensin-converting enzyme inhibitor (FN) ANDREWS Inhibitors Unknown Drug Allergy Acti ve morphine Morphine Unknown Drug Allergy [facility] Conversion Encounter Medications Medication SIG (Take, [...] pick correct strength[facility]ul[facility]. If intended option is [...] tab(s) orally every 6 hours Active Nystatin 970990 UNIT/GM 1 truong applied topically 3 times [...] Active Encounters Encounter Location Date Provider Diagnosis [facility] PED [place] [address] [facility] [address] [place] [address] 03/06/2025 Provider Migration Recurrent UTI N39.0 Assessments [...] Chacha HAYWARD ADOB:[birth year] (75 yo F)Acc No.[id number]:03/06/2025 Patient: Alejandra ELIZABETHChacha Provider: Yobany Mancera :1950 A ge:75 Y S ex:Female Date:03/06/2025 Address:[facility] [address], [id number] Pcp:Winston Webster Subjective: * Chief Complaints: * 1 . Multum To Medispan Conversion Encounter. * Medical History: * Medications: T aking Nystatin 231008 UNIT/GM Powder 1 truong applied topically 3 [...] Electronic signature of Prov ider Migration on 09/06/2025 at 09:52 AM EDT Sign off status: Pending * Provider: Yobany valderrama Migration Date: 0 03/06/2025 Generated for Printi ng/Ronda/Daviditting on: 1 09:52 AM EDT
--- OUTSIDE RECORDS SUMMARY | 2025-08-04 06:30 | XMS_ITS ---
Author Organization Located within [facility] Address [address] [facility] [address] [facility] [address] [place] [address] Care Team Providers Care Records Supervisor Name Role Phone Darin Winston Primary Care Provider Abmer Lechuga Unavailable [phone] Allergies Allergen (clinical drug ingredient) Drug/Non Drug Allergy documented on EMR Reaction Allergy Type Onset Date Status IV DYES (uncoded) Unknown Allergy Ac tive Latex LATEX (uncoded) Unknown Allergy Acti ve angiotensin-converting enzyme inhibitor (FN) ANDREWS Inhibitors Unknown Drug Allergy Acti ve morphine Morphine Unknown Drug Allergy Active Reason For Referral Reason Echo at [facility] Diagnosis 1 OSWALD (dyspnea on exer tion) (R06.09) Referral Organization Located within [facility] Referring Provider First Name Amber Referring Provider Last Name Alexandrea Referring Provider Speciality Family Pra ctice Referred Organization [facility] Referred Address [address] [place] [address], [place], [place],[address], Referred Provider Specialty Diagnostic R adiology General Notes Amanda Rae 2024 12:15:53 PM >SENT TO [facility] TO SCHEDULED NO AUTH NEEDED FOR CPT 56561 Referral Priority Routine REASON FOR VISIT UTI - dysuria Medications Medication SIG (Take, Route, Frequency, Duration) Notes Start Date End Date Status Mycophenolate Mofetil 500 MG 1 tab(s) orally 2 times a day Active Dicyclomine HCl 10 MG 1 cap(s) orally twice daily; Duration: 90 days Active NURTEC ODT 75 MG 1 TAB(S) ORALLY EVERY OTHER DAY; Duration: 30 DAYS *Please review for potential replacement for e-prescription and drug interaction check* Active Hydroxychloroquine Sulfate 300 MG 1 tab(s) orally twice a day; Duration: 30 days Active Doxepin HCl 10 MG 2 TABS orally at bedtime as needed Active Fiber Choice 1.5 GM 2 tab(s) chewed 2 times a day Active Acetaminophen 500 MG 2 tab(s) orally every 6 hours Active Cholecalciferol 50 MCG (2000 UT) 1 capsule Orally Once a day Active Cefdinir 300 MG 300 mg Orally daily; Duration: 7 days 08/04/2025 Active NIFEdipine 10 MG 1 capsule as needed Orally every 8 hrs Active Mirtazapine 15 MG TAKE 1 TABLET EVERY DAY; Duration: 90 Active Sertraline HCl 25 MG 1 tab(s) orally once a day; Duration: 90 days Active Cetirizine HCl 10 MG 1 tablet Orally Once a day; Duration: 90 days 05/18/2025 Active Levothyroxine Sodium 137 MCG TAKE 1 TABLET EVERY MORNING ON AN EMPTY STOMACH; Duration: 90 Active Fluticasone Propionate 50 MCG/ACT 1 spray in each nostril Nasally Twice a day Active Xanax 0.25 MG 1 tab(s) orally daily; Duration: 30 days 05/17/2025 Active Imitrex 100 MG 1 tab(s) orally once at onset of migraine; Duration: 90 days Active Sodium Bicarbonate 650 MG TAKE 2 TABLETS THREE TIMES DAILY; Duration: 90 days Active busPIRone HCl 10 MG 1 tab(s) orally 2 times a day; Duration: 90 days Active Vital Signs Temperature 97.5 degrees Fahrenheit 08/04/20 25 Oximetry 99 08/04/2025 Heart Rate 105 /min 08/04/2025 Blood pressure systolic 146 mm Hg 08/04/20 25 Blood pressure diastolic 90 mm Hg 025 Height 61 in 08/04/2025 Weight 124 lbs 08/04/2025 BMI 23.43 kg/m2 08/04/2025 Encounters Encounter Location Date Provider Diagnosis [address] [address] 08/04/2025 Amber Lechuga Dysuria R30.0 ; OSWALD (dyspnea on exertion) R06.09 ; Palpitations R00.2 and Anemia, chronic disease D63.8 Assessments Encounter Date Diagnosis (ICD Code) Assessment Notes Treatment Notes Treatment Clinical Notes Section Notes 08/04/2025 Dysuria (ICD-10 - R30.0) unable to leave urine specimen today...supplies provided and will take this later to [facility] lab Start oral antibiotics as noted, renal dose 08/04/2025 OSWALD (dyspnea on exertion) (ICD-10 - R06.09) likely multifactoral and anemia may contribute. EKG with mild sinus tach today and nonspecific changes, reviewed with Dr Webster I did encourage her to go to the ED if these symptoms progress, we will update Echo 08/04/2025 Palpitations (ICD-10 - R00.2) 08/04/2025 Anemia, chronic disease (ICD-10 - D63.8) Plan Of Treatment Medication Medication Name Sig Start Date Stop Date Notes Cefdinir 300 MG 300 mg Orally daily; Duration: 7 days 01/2025 Pending Test Test Name Order Date M-Urinalysis and Microscopic 08/04/2025 M-Urine Culture 08/04/2025 Referrals Referral Date Details 08/08/2025 08/08/2025, Echo at [facility], [address] [place] [facility] [address], [place], [address], Next Appt Details Follow Up: pending results, Reason: Progress Notes * GUSMarbella ALAMOith ADOB:[birth year] (75 yo F)Acc No.[id number]:08/04/2025 Progress Notes Patient: Chacha MONDRAGON Provider: ELIZABETH Higgins :1950 A ge:75 Y S ex:Female Date:08/04/2025 Address:[facility] [place] Pcp:Winston Webster Subjective: * Chief Complaints: * 1 . UTI - dysuria. * HPI: g en: Presents today with c/o dysuria for several days, suprapubic pain. No hematuria or fevers. Also notes several intermittent episiodes of presyncope, feels weak, clammy, and takes some time/rest to recover. Sometimes tachycardic but otherwise denies new CP, SOA, palpitations, edema. Does have diarrhea but chronic. Has had labs done recently, stable chronic anemia with HGB 7.5-8.5 and has FU with nephrology again in 2-3 weeks. * ROS: R ESPIRATORY: Shortness of breath y es. n o C hest pain. n o?Cough. C ARDIOLOGY: See HPI Y es. C ONSTITUTIONAL: Loss of appetite y es. n o F ever. W eakness?yes. D ERMATOLOGY: no R kee. G ASTROENTEROLOGY: no V omiting. D iarrhea y es. U ROLOGY: See HPI Y es. * Medical History: S DEREK-diagnosed 5 years ago-has lupus nephritis, rheumatoid arthritis-follows with at rheumatology., stage III chronic kidney disease from [...] UTI 06/2021, UTI , blood work 05/2022, [facility] for 10 day 06/2022. * Family History: F ather: , cancer, colon, diagnosed with Cancer. M other: alive, breast cancer, diagnosed with Cancer, Diabetes, Hypertension. P aternal Grand Father: . P aternal Grand Mother: . M aternal Grand Father: . M aternal Grand Mother: .?Paternal uncle: alive. P aternal aunt: alive. M aternal uncle: , diabetes. M aternal aunt: alive, breast cancer. S iblings: alive. C hildren: alive, colon polyps- + cancer cells. 1 [...] has since . One child lives in [place], another daughter lives in [place]. [facility], has lots of problems with mobility issues, [...] tab(s) orally twice a day , Taking NURTEC ODT 75 MG TABLET, DISINTEGRATING 1 TAB(S) ORALLY EVERY OTHER DAY , Notes to Pharmacist: *Please review for potential replacement for e-prescription and drug interaction check*, Taking Dicyclomine HCl 10 MG Capsule 1 cap(s) orally twice daily , Taking Imitrex 100 MG Tablet 1 tab(s) orally once at onset of migraine , Taking busPIRone HCl 10 MG Tablet 1 tab(s) orally 2 times a day , Taking Sodium Bicarbonate 650 MG Tablet TAKE 2 TABLETS THREE TIMES DAILY , Taking Xanax 0.25 MG Tablet 1 tab(s) orally daily , Taking Cetirizine HCl 10 MG Tablet 1 tablet Orally Once a day , Taking Sertraline HCl 25 MG Tablet 1 tab(s) orally once a day , Taking Mirtazapine 15 MG Tablet TAKE 1 TABLET EVERY DAY , Taking Levothyroxine Sodium 137 MCG Tablet TAKE 1 TABLET EVERY MORNING ON AN EMPTY STOMACH , Medication List reviewed and reconciled with the patient * Allergies: L ATEX, Morphine, ANDREWS Inhibitors, IV DYES. Objective: * Vitals: N urse: dw, Pain: 0, Temp: 97.5, Pulse O2: 99, RR: 20, HR: 105, BP: 146/90, Ht: 61, Wt: 124, BMI:23.43. * Examination: G eneral Examination: General f rail, chronically ill appearing. Oral cavity: M oist membranes. Heart: R egular Rate and Rhythm. Lungs: c lear to auscultation,, decreased air entry at bases,. Abdomen: s oft, NT/ND, BS present. neck s upple,. Psych N ormal Mood/Affect. Assessment: * Assessment: 1. D ysuria - R30.0 (Primary) 2 . D OE (dyspnea on exertion) - R06.09 ? 3 . P alpitations - R00.2 4 . A nemia, chronic disease - D63.8? Plan: * Treatment: 2. D OE (dyspnea on exertion) Clinical Notes: likely multifactoral and anemia may contribute. EKG with mild sinus tach today and nonspecific changes, reviewed with Dr Webster I did encourage her to go to the ED if these symptoms progress, we will update Echo ? Referral To: Reason:Echo at [facility] * Procedure Codes: 9 3000 EKG WITH INTERP. * Follow Up: p ending results * * Sign off status: Completed true * Provider: ELIZABETH Higgins Date: 0 08/04/2025 Generated for Timur lr/Ronda/eTransmitting on: 1 09:52 AM EDT History and Physical Notes * Examination Category Sub-Category Detail Notes Category Not es General Examination Heart: Regular Rate and Rhyt Lungs: clear to auscultatio n,, decreased air entry at bases, Abdomen: soft, NT/ND, BS pres ent Oral cavity: Moist membranes neck supple, General frail, chronically i ll appearing Psych Normal Mood/Affect Consultation Request Notes Referral Date Referring Provider Referred Provider Not alma 08/08/2025 Amber Lechuga Echo at [facility]
--- OUTSIDE RECORDS SUMMARY | 2025-08-09 08:11 | XMS_ITS ---
Author Organization [facility] Address [address] [facility] [address] [facility] [address] [place] [address] Care Team Providers Care Monitoring Coordinator Name Role Phone Winston Webster Primary Care Provider [phone] Amber Lechuga [facility] [phone] Results Component Value Reference Range Notes Echocardiogram Reviewed date:08/30/2025 02:52:28 PM Interpretation: Performing Lab: Notes/Report: Echocardiogram Reviewed date:08/30/2025 02:52:28 PM Interpretation: Performing Lab: Notes/Report: Encounters Encounter Location Date Provider Diagnosis [facility] [address] [place] [address] [facility] [address] [place] [address] 08/09/2025 Amber Lechuga Dyspnea on exertion R06.09 Assessments Encounter Date Diagnosis (ICD Code) Assessment Notes Treatment Notes Treatment Clinical Notes Section Notes 08/09/2025 Dyspnea on exertion (ICD-10 - R06.09) Plan Of Treatment No Information Progress Notes * Chacha HAYWARD ADOB:[birth year] (75 yo F)Acc No.[id number]:08/09/2025 Patient: Chacha MONDRAGON :1950 A ge:75 Y S ex:Female Address:[facility] [place], [address] Subjective: * Chief Complaints: * * Medical History: * Surgical History: * Hospitalization/Major Diagno stic Procedure: * Medications: Objective: * Vitals: * Physical Examination: Assessment: * Assessment: 1. D yspnea on exertion - R06.09 Plan: * Treatment: * * Procedure Codes: * true * Date: Generated for Timur lr/Ronda/Toby on: 09:51 AM EDT
--- OUTSIDE RECORDS SUMMARY | 2025-09-06 09:51 | XMS_ITS | Encounter Summary ---
Author Organization [facility] Address [address] [place] [address] Care Team Providers Care Powder Shoveler Name Role Phone Winston Webster MD Primary Care Provider [phone] Liliana Gar APRN Primary Care Provider Encounter Details Date Type Department Care Team (Late Contact Info) Description 06/12/2024 Orders Only External Location [address] [place] [address] Provider, External Social History Tobacco Use Types [...] 2:20 PM EDT Office Visit [facility] Nephrology, Bone & Mineral Metabolism [address] [facility], [address] [place] [address] 10/22/2025 10:45 AM EST Appointment [facility] [address], 1st [place] [address] 10/22/2025 12:15 PM EST [facility] [address], [address] [place] [address] Yan Rowland MD [address] [place] [address] 11/19/2025 9:45 AM EST [facility] Visit [facility] Medicine Specialties [address], [address] [place] [address] Yareli Puga DO [address] [place] [address] documented as of this encounter [...] documented as of this encounter Care Teams Powder Shoveler Relationship Specialty Start Date End Date Winston Webster MD [address] [place] [address] PCP - General 04/14/21 02/22/25 Liliana Gar APRN [address] [place] [address] PCP - General 02/23/25 documented as of this encounter
--- OUTSIDE RECORDS SUMMARY | 2025-09-06 09:52 | XMS_ITS | Encounter Summary ---
Author Organization [facility] Address [address] [place] [address] Care Team Providers Care Wood Boatbuilder Name Role Phone Winston Webster MD Primary Care Provider [phone] Liliana Gar APRN Primary Care Provider [phone] Encounter Details Date Type Department Care Team (Late Contact Info) Description 06/12/2024 Orders Only External Location [address] [place] [address] Provider, External Social History Tobacco Use Types [...] 09/13/2025 2:20 PM EDT Office Visit [facility] Nephrology, Bone & Mineral Metabolism [address], [address] [place] [address] 10/22/2025 10:45 AM EST Appointment [facility] [address], 1st [place] [address] 10/22/2025 12:15 PM EST Office Visit [facility] [address], 1st [place] [address] Yan Rowland MD [address] [place] [address] 11/19/2025 9:45 AM EST Office Visit [facility] Medicine Specialties [address], 2nd [place] [address] Yareli Puga DO [address] [place] [address] documented as of this encounter [...] documented as of this encounter Care Teams Wood Boatbuilder Relationship Specialty Start Date End Date Winston Webster MD [address] [place] [address] PCP - General 04/14/21 02/22/25 Liliana Gar, YURIY [address] [place] [address] PCP - General 02/23/25 documented as of this encounter
--- OUTSIDE RECORDS SUMMARY | 2025-09-06 09:52 | XMS_ITS | Encounter Summary ---
Author Organization [facility] Address [address] [place] [address] Care Team Providers Care Senior Informatica Developer Name Role Phone Winston Webster MD Primary Care Provider [phone] Liliana Gar APRN Primary Care Provider [phone] Reason for Visit * Reason Comments Med Refill Encounter Details Date Type Department Care Team ([facility] st Contact Info) Description 05/14/2024 Refill [facility] Nephrology, Bone & Mineral Metabolism [address] [address] [facility] [address] [facility] [address] [facility], [address] [place] [address] Enmanuel Castillo MD [address] [facility] [address] [place] [address] Social History Tobacco Use Types [...] could the lab orders be sent to [facility] in [place]? Best contact number and optimal time of day to reach caller: Pt [phone] Please call if orders sent so pt will know to go to the lab. Note: Please do not reply to this message. Follow-up communication and further actions as a result of this message need to be communicated with the patient directly, if the patient is not active onMyChart. If the patient is active on MyChart, they will receive notification of the communication/outcome via [employer]. * Telephone Encounter - No Hancock LPN - 05/14/2024 7:23 AM EDT Refilled 04/17/24 #180 tablets for 3 months supply documented in this encounter Plan of Treatment Upcoming Encounters Date Type Department Care Team (Late st Contact Info) Description 09/13/2025 2:20 PM EDT Office Visit [facility] Nephrology, Bone & Mineral Metabolism [address] [facility] [address] [facility], [address] [place] [address] 10/22/2025 10:45 AM EST Appointment [facility] Radiology [address], 1st [place] [address] 10/22/2025 12:15 PM EST Office Visit [facility] [address], 1st [place] [address] Yan Rowland MD [address] [place] [address] 11/19/2025 9:45 AM EST Office Visit [facility] Medicine Specialties [address], 2nd [place] [address] EddYareli, DO [address] [place] [address] documented as of this encounter Visit Diagnoses Not on filedocumented in this encounter Additional Health Concerns Assessment Noted Time A fall risk assessment has been complete d for the patient 04/17/2024 11:18 AM EDT A Body Mass Index follow-up plan has been documented for the patient 04/17/2024 11:40 AM EDT documented as of this encounter Care Teams Senior Informatica Developer Relationship Specialty Start Date End Date Winston Webster MD [address] [place] [address] PCP - General 04/14/21 02/22/25 Liliana Gar, REALTY LOAN SPECIALIST [address] [place] [address] PCP - General 02/23/25 documented as of this encounter
--- OUTSIDE RECORDS SUMMARY | 2025-09-06 09:52 | XMS_ITS | Clinical Summary ---
Author Organization [facility] Address [address] [place] [address] Care Team Providers Care Director Of Patient Safety Name Role Phone Unavailable Primary Care Provider [...]
--- OUTSIDE RECORDS SUMMARY | 2025-09-06 09:52 | XMS_ITS | Encounter Summary ---
Author Organization [facility] Address [address] [place] [address] Care Team Providers Care Gas Compressor Turbine Operator Name Role Phone Winston Webster MD Primary Care Provider [phone] Liliana Gar APRN Primary Care Provider [phone] Encounter Details Date Type Department Care Team (Late Contact Info) Description 06/12/2024 Orders Only External Location [address] [place] [address] Provider, External Social History Tobacco Use Types [...] PM EDT Office Visit [facility] Nephrology, Bone & Mineral Metabolism [address] [facility], [address] [place] [address] 10/22/2025 10:45 AM EST Appointment [facility] Radiology [address], 1st [place] [address] 10/22/2025 12:15 PM EST Office Visit [facility] [address], 1st [place] [address] Yan Rowland MD [address] [place] [address] 11/19/2025 9:45 AM EST Office Visit [facility] Medicine Specialties [address], 2nd [place] [address] Yareli Puga DO [address] [place] [address] documented as of this encounter [...] documented as of this encounter Care Teams Gas Compressor Turbine Operator Relationship Specialty Start Date End Date Winston Webster MD [address] [place] [address] PCP - General 04/14/21 02/22/25 Liliana Gar APRN [address] [place] [address] PCP - General 02/23/25 documented as of this encounter
--- OUTSIDE RECORDS SUMMARY | 2025-09-06 09:52 | XMS_ITS | Encounter Summary ---
Author Organization [facility] Address [address] [place] [address] Care Team Providers Care Spiral Tube Winder Helper Name Role Phone Liliana Gar YURIY Primary Care Provider [phone] Reason for Referral * Consultation (Routine) - Closed Specialty Diagnoses / Procedures Referred By Gaby presley Referred To Contact Neurosurgery Diagnoses Brain mass Emilee Tejeda MD [address] [facility] [address] [place] [address] Phone: tel: fax: Referral ID Status Reason Start Date Expiration Date V isits Requested Visits Authorized [id number] Closed Specialty Services Required 02/26/2025 08/28/2026 1 1 Encounter Details Date Type Department Care Team (Late st Contact Info) Description 02/26/2025 [facility] [address] [place] [address] Emilee Tejeda MD [address] [employer] [place] [address] Brain mass (Primary Dx) Social History [...] Description 09/13/2025 2:20 PM EDT Office Visit [facility] [place] Nephrology, Bone & Mineral Metabolism [address] [facility], [address] [place] [address] 10/22/2025 10:45 AM EST Appointment [facility] Radiology [address], 1st [place] [address] 10/22/2025 12:15 PM EST Office Visit [facility] [address], 1st [place] [address] Yan Rowland MD [address] [place] [address] 11/19/2025 9:45 AM EST Office Visit [facility] Medicine Specialties [address], 2[address] [place] [address] Yareli Puga DO [address] [place] [address] Scheduled Referrals Name Type Priority [...] documented as of this encounter Care Teams Spiral Tube Winder Helper Relationship Specialty Start Date End Date Liliana Gar, YURIY [address] [place] [id number] PCP - General 02/23/25 documented as of this encounter
--- OUTSIDE RECORDS SUMMARY | 2025-09-06 09:52 | XMS_ITS | Encounter Summary ---
Author Organization [facility] Address [address] [place] [address] Care Team Providers Care Radiation / Chemistry Technician Name Role Phone Winston Webster MD Primary Care Provider [phone] Liliana Gar APRN Primary Care Provider [phone] Encounter Details Date Type Department Care Team (Late Contact Info) Description 06/12/2024 Orders Only External Location [address] [place] [address] Provider, External Social History Tobacco Use Types [...] 09/13/2025 2:20 PM EDT Office Visit [facility] Nephrology, Bone & Mineral Metabolism [address] [facility], [address] [place] [address] 10/22/2025 10:45 AM EST Appointment [facility] [address], 1st [place] [address] 10/22/2025 12:15 PM EST Office Visit [facility] [address], 1st [place] [address] Yan Rowland MD [address] [place] [address] 11/19/2025 9:45 AM EST Office Visit [facility] Medicine Specialties [address], 2nd [place] [address] Yareli Puga DO [address] [place] [address] documented as of this encounter [...] documented as of this encounter Care Teams Radiation / Chemistry Technician Relationship Specialty Start Date End Date Winston Webster MD [address] [place] [address] PCP - General 04/14/21 02/22/25 Liliana Gar, GENERATOR ASSEMBLER [address] [place] [address] PCP - General 02/23/25 documented as of this encounter
--- OUTSIDE RECORDS SUMMARY | 2025-09-06 09:53 | XMS_ITS | Patient Health Record ---
Author Organization [facility] Address [address] [place] [address] Care Team Providers Care Medical Anthropology Director Name Role Phone Winston Webster Primary Care Provider Amber Lechuga Unavailable [phone] Liliana Avalos Unavailable [phone] Migration, Provider Unavailable Unavailable Allergies Allergen (clinical [...] date:08/30/2025 02:52:28 PM Interpretation: Performing Lab: Notes/Report: COMPREHENSIVE METABOLIC PANE L ([id number]) Reviewed date:05/19/2025 10:59:23 AM Interpretation: Performing Lab:CB, [facility] [address], [place] PerryUckkTM[address] Olivier Albert Notes/Report: NON-FASTING; NON-FASTING; NON-FASTING GLUCOSE [...] date:05/19/2025 10:59:23 AM Interpretation: Performing Lab:JOSÉ LUIS, [facility] [address], [facility] Hospital[facility]xgsBD[address] [place] Notes/Report: NON-FASTING; NON-FASTING; NON-FASTING WHITE [...] MPV 9.7 7.5-12.5 fL ABSOLUTE NEUTROPHILS 4762 7311-9588 cells/uL ABSOLUTE LYMPHOCYTES 8243 630-6255 cells/uL ABSOLUTE MONOCYTES 531 200-950 cells/uL ABSOLUTE EOSINOPHILS 32 15-500 cells/uL ABSOLUTE BASOPHILS 32 0-200 cells/uL NEUTROPHILS 74.4 LYMPHOCYTES 16.3 MONOCYTES 8.3 EOSINOPHILS 0.5 BASOPHILS 0.5 TSH W/REFLEX TO FT4 ([id number]) Reviewed date:05/19/2025 10:59:23 AM Interpretation: Performing Lab:CB, [facility] [address], [place] DiezUnjzWC[address] Olivier Albert Notes/Report: NON-FASTING; NON-FASTING; NON-FASTING NON-FASTING; NON-FASTING; NON-FASTING TSH W/REFLEX TO FT4 0.11 0.40-4.50 mIU/L T4, FREE 1.0 0.8-1.8 ng/dL Reason For Referral Reason Neurology - Dr. Key altamirano Call Daughter to Schedule appt/ Kellee [phone] Diagnosis 1 Brain lesion (G93.9) Referral Organization [facility] [place] Referring Provider First Name Liliana Referring Provider Last Name Robbie Referring Provider [facility] ctice Referred Organization [facility] Referred Address [address], [place], [place],[address], Referred Provider Specialty Neurology General Notes Amanda Rae 2023 03:11:02 PM >Referral sent to Dr. Tejeda Referral Priority Routine Reason Medication Managment with [facility] Diagnosis 1 Brain lesion (G93.9) Diagnosis 2 Urinary incontinence , unspecified type (R32) Diagnosis 3 Psychophysiologic in somnia (F51.04) Diagnosis 4 Chronic kidney disea se, stage 4 (severe) (N18.4) Diagnosis 5 Lupus erythematosus (L93.0) Referral Organization formerly [facility] [place] Referring Provider First Name Liliana Referring Provider Last Name Robbie Referring Provider Speciality Family [facility] ctice Referral Priority Routine Reason Needs Federated Petty sportation scheduled for Rheumatology [address] Referral Organization formerly [facility] [place] Referring Provider First Name Winston Referring Provider Last Name Darin Referring Provider Speciality Internal M edicine Referred Provider Specialty Transportati on General Notes Amanda Rae 2024 10:40:55 AM >waiting on form Referral Priority Routine Referral Appointment Date 05/06/2025 Reason wheelchair Diagnosis 1 Weakness (R53.1) Referral Organization formerly [facility] [place] [facility] Referring Provider First Name Liliana Referring Provider Last Name Robbie [facility] Referred Provider Specialty DME General Notes Amanda Rae 2024 01:00:49 PM >Has [employer] HMO can't do Romy- sent to [facility] Referral Priority Routine Reason Echo at [facility] Diagnosis 1 OSWALD (dyspnea on exer tion) (R06.09) Referral Organization formerly [facility] PRICE Referring Provider First Name Amber Referring Provider Last Name Alexandrea Referring Provider Speciality Family Cristian mckeon Referred Organization [facility] Referred Address [address] [facility] [address] [facility], [place],[address] Referred Provider Specialty Diagnostic R adiology General Notes Amanda Rae 2024 12:15:53 PM >SENT TO [facility] TO SCHEDULED NO AUTH NEEDED FOR CPT 56290 Referral Priority Routine Medications Medication SIG (Take, [...] Status W/U Status Risk Notes Problem Hypocalcemia (4076814) Hypocalcemia (E83.51) Active confirmed Problem Psychophysiologic insomnia (429453727) Psychophysiologic insomnia (F51.04) Active confirmed Problem Chronic pain (63275411) Other chronic pain (G89.29) Active confirmed Problem 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) Active confirmed Problem Irritable bowel syndrome with diarrhea (490571497) Irritable bowel syndrome with diarrhea (K58.0) Active confirmed Problem 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) Active confirmed Problem Osteoporosis (90709982) Other osteoporosis without current pathological fracture (M81.8) Active confirmed Problem Chronic kidney disease stage 4 (090515836) Chronic kidney disease, stage 4 (severe) (N18.4) Active confirmed Problem Disorder of kidney and/or ureter (295954251) Other specified disorders of kidney and ureter (N28.89) Active confirmed Problem Mixed anxiety and depressive disorder (127863686) Depression with anxiety (F41.8) Active confirmed Problem Hypothyroidism (35696411) Hypothyroidism (acquired) (E03.9) Active confirmed Problem Neuropathy (299455587) Neuropathy (G62.9) Active confirmed Problem Essential hypertension (24204803) Essential hypertension (I10) Active confirmed Problem Seasonal allergy (517896203) Seasonal allergies (J30.2) Active confirmed Problem Arthropathy (557210522) Arthritis involving multiple sites (M12.9) Active confirmed Problem Gastroesophageal reflux disease without esophagitis (037621833) Gastroesophageal reflux disease without esophagitis (K21.9) Active confirmed Problem Abnormal mammogram (770950963) Abnormal mammogram (R92.8) Active confirmed Problem Lesion of brain (025675441) Brain lesion (G93.9) Active confirmed Problem Lupus erythematosus (413959866) Lupus erythematosus (L93.0) Active confirmed Problem Dyspnea on exertion (24189572) Dyspnea on exertion (R06.09) Active confirmed Problem Bilateral tinnitus (8639813202266) Tinnitus of both ears (H93.13) Active confirmed Problem Generalized anxiety disorder (16522641) ANGE (generalized anxiety disorder) (F41.1) Active confirmed Problem Chronic kidney disease stage 4 (516009651) Chronic kidney disease, stage IV (severe) (N18.4) Active confirmed Problem 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) Active confirmed Problem Moderate recurrent major depression (82520860) Moderate episode of recurrent major depressive disorder (F33.1) Active confirmed Problem Allergic rhinitis caused by pollen (76399497) Seasonal allergic rhinitis due to pollen (J30.1) Active confirmed Problem Essential tremor (810538514) Tremor, essential (G25.0) Active confirmed Problem Anemia of chronic disease (353628411) Anemia, chronic disease (D63.8) Active confirmed Problem Urinary incontinence (807996591) Urinary incontinence, unspecified type (R32) Active confirmed Problem Seasonal allergic rhinitis (878693462) Acute seasonal allergic rhinitis (J30.2) Active confirmed Problem Osteoarthritis of knee (540943188) Localized osteoarthritis of knees, bilateral (M17.0) Active confirmed Problem Acute systolic heart failure (462703598) Acute systolic congestive heart failure (I50.21) Active confirmed Problem COVID-19 (218891109) COVID-19 (U07.1) Active confirmed Problem Chronic kidney disease stage 5 (129620168) Chronic kidney failure, stage 5 (N18.5) Active confirmed Vital Signs Heart Rate 105 /min 08/04/2025 Temperature 97.5 degrees Fahrenheit 08/04/2025 Oximetry 99 08/04/2025 Blood pressure diastolic 90 mm Hg 08/04/2025 Height 61 in 08/04/2025 Blood pressure systolic 146 mm Hg 08/04/2025 Weight 124 lbs 08/04/2025 BMI 23.43 kg/m2 08/04/2025 Encounters Encounter Location Date Provider Diagnosis [facility] [address] [facility] [address] [place], [place] [address] 03/06/2025 Provider Migration Recurrent UTI N39.0 [facility] [address] [address] 05/17/2025 Liliana McNees Hypothyroidism (acquired) E03.9 ; [...] anxiety disorder) F41.1 and Essential hypertension I10 [facility] [address] [address] 08/04/2025 Amber Lechuga Dysuria R30.0 ; OSWALD (dyspnea on exertion) R06.09 ; Palpitations R00.2 and Anemia, chronic disease D63.8 [facility] [address] [place] [address] 10/05/2024 Winston Webster [facility] [address] [place] [address] 10/08/2024 Liliana McNees [facility] [address] [facility] [address] [place] [address] 05/17/2025 Liliana McNees [facility] [address] [facility] [address] [place] [address] 05/17/2025 Liliana Avalos [facility] [place] [address] [place], [place] [address] 05/19/2025 Winston Webster [facility] [address] [place], [place] [address] 08/09/2025 Amber Lechuga Dyspnea on exertion R06.09 [facility] [address] [place], [place] [address] 08/10/2025 Amber Lechuga Assessments Encounter Date Diagnosis [...] provided and will take this later to [facility] lab Start oral antibiotics as noted, renal [...] Microscopic 08/04/2025 M-Urine Culture 08/04/2025 Culture, Urine 09/04/2022 Culture, Urine 05/16/2022 Future Test Test Name Order Date M-Complete Blood Count Auto Diff 019 M-Comprehensive Metabolic Panel 08/10/20 19 Insurance Providers Payer Name Payer Address Payer Phone Subscriber Number Group Number Insured Name Patient Relationship to Insured Coverage Start Date Coverage End Date [employer] MEDICARE DUAL [address] [address] [place] [address] [id number] Chacha Hayward Self - patient is the [...] excisions Hemmorhoids 2012 Hospitalization History Reason Date(Month/Year) [facility] for 10 day 06/2022 UTI , blood work 05/2022 UTI 06/2021 ELINA 06/2020 pneumonia 04/2020 dehydration 09/2017 fluid 2009
--- OUTSIDE RECORDS SUMMARY | 2025-09-06 09:53 | XMS_ITS | Encounter Summary ---
Author Organization [facility] Address [address] [place] [address] Care Team Providers Care Art Instructor Name Role Phone Winston Webster MD Primary Care Provider [phone] Liliana Gar APRN Primary Care Provider [phone] Reason for Visit * Reason Comments Med Refill Encounter Details Date Type Department Care Team (Late st Contact Info) Description 05/04/2022 Refill [facility] [address] [place] [address] Enmanuel Castillo MD [address] [place] [address] Social History Tobacco Use Types Packs/Day [...] 09/13/2025 2:20 PM EDT Office Visit [facility] Nephrology, Bone & Mineral Metabolism [address] [facility], [address] [place] [address] 10/22/2025 10:45 AM EST Appointment [facility] [address], 1st [place] [address] 10/22/2025 12:15 PM EST Office Visit [facility] [address], [address]st [place] [address] Yan Rowland MD [address] [place] [address] 11/19/2025 9:45 AM EST Office Visit [facility] Medicine Specialties [address], [address]nd [place] [address] Yareli Puga DO [address] [place] [address] documented as of this encounter Visit Diagnoses Not on filedocumented in this encounter Additional Health Concerns Assessment Noted Time A fall risk assessment has been complete d for the patient 11/28/2021 1:17 PM EST documented as of this encounter Care Teams Art Instructor Relationship Specialty Start Date End Date Winston Webster MD [address] [place] [address] PCP - General 04/14/21 02/22/25 Liliana Gar, YURIY [address] [place] [address] PCP - General 02/23/25 documented as of this encounter
--- OUTSIDE RECORDS SUMMARY | 2025-09-06 09:53 | XMS_ITS | Clinical Summary ---
Author Organization [facility] Address [address] [place] [place] [address] Care Team Providers Care Mine Safety Manager Name Role Phone Liliana Gar DATA MANAGEMENT CONSULTANT Primary Care Provider [phone] Allergies Active Allergy Reactions Criticality Noted Date [...] Active fluticasone (Flonase) 50 MCG/ACT nasal spray 0 Active mirtazapine (Remeron) 15 MG tablet [...] time each day. 90 tablet 3 5 026 Active sodium bicarbonate 650 MG tablet Take 2 tablets by mouth 2 times a day. 360 tablet 3 5 Active NIFEdipine XL (Procardia XL) 30 MG 24 hr tabletIndications: Benign essential hypertension Take 1 tablet by mouth daily. Do not crush, chew, or split. 90 tablet 3 5 Active mycophenolate (Cellcept) 500 MG tabletIndications: Systemic lupus erythematosus, organ or system involvement unspecified (CMS/HCC) TAKE 1 TABLET TWICE DAILY 180 tablet 3 5 Active Hydroxychloroquine Sulfate 300 MG tabletIndications: Systemic lupus erythematosus, organ or system involvement unspecified (CMS/HCC) Take 300 mg by mouth daily. 90 tablet 5 Active cholecalciferol (Vitamin D-3) 50 MCG (1999) capsule TAKE 1 CAPSULE EVERY DAY 90 capsule 3 5 Active darbepoetin alondra (Aranesp, Albumin Free,) 100 MCG/ML injection Inject 1 mL under the skin every 14 days. 2 mL 1 5 Active darbepoetin alondra (Aranesp, Albumin Free,) 100 MCG/ML injection Inject 1 mL under the skin every 28 days. 1 mL 1 5 025 Discontin ued(Reord er) Active Problems Problem Noted Date Diagnosed Date [...] Date Type Department Care Team Description [facility] [address], [address] [place] [address] Lena Leon MD from Last 3 Months Immunizations Immunization Administration [...] David Hypertension Father David Breast cancer Mother [place] Diabetes Mother [place] Hypertension Mother [place] Lung cancer Mother [place] Skin cancer Mother [place] Alcohol abuse Other 1 Cancer Other 2 Colon cancer Other 3 Diabetes Other 4 Drug abuse Other 5 Hyperlipidemia Other 6 Hypertension Other 7 Hyperthyroidism Other 8 Hypothyroidism Other 9 Lung cancer Other 10 Ovarian cancer Other 11 Cancer Sister Roxane Hahn Relation Name Status Comments Cousin Father David Mother [place] Other 1 Other 2 Other 3 Other [...] 09/13/2025 2:20 PM EDT Office Visit [facility] Nephrology, Bone & Mineral Metabolism [address], [address] [place] [address] 10/22/2025 10:45 AM EST Appointment [facility] [address], 1st [place] [address] 10/22/2025 12:15 PM EST [facility] Visit [facility] [address], 1st [place] [address] Yan Rowland MD [address] [place] [address] 11/19/2025 9:45 AM EST Office Visit [facility] Medicine Specialties [address], [address]nd [place] [address] Yareli Puga DO [address] [place] [address] Health Maintenance Due Date Last Done Comments [facility]-Hepatitis C Screening 1950 [facility]-Medicare Annual Wellness (AWV) 1950 [facility]-/Child/Adol SDOH Screenings 1950 [facility]- SDOH Screenings 1967 [facility]-Adult SDOH Screenings 1967 [facility]-DTaP,Tdap,and Td Vaccines (1 - Tdap) 02/21/1968 [facility]-Zoster Vaccines (1 of 2) 02/21/1968 [id number] Vaccine (3 - Moderna risk series) 03/23/2021 [...] Jacqui ging Narrative 01/11/2024 2:27 PM EST [facility] - Bone & Mineral Metabolism Clinic [address] [place] [address] DXA Bone Densitometry Report: [DAY/DATE] BMD test performed using the [employer] DXA System (analysis version: 14.10) manufactured by [employer]. REFERRING PROVIDER: Dr. Castillo, Enmanuel Heller MD [...] Most Recently Relevant to Health Maintenance Insurance [address] [place] [address] [place] Care Teams Mine Safety Manager Relationship Specialty Start Date End Date Liliana Gar APRN [facility] [place] [address] PCP - General 02/23/25
[2025-09-06 12:21] LABS: Ferritin 616 ng/ml (11.1-264)
== END 2025-09-06 23:59 | disposition home or self-care (01) ==
LOC: LAB 09:49
PROVIDERS: PCP Nurse Practitioner Family; Visit Provider Internal Medicine Nephrology
DX: N18.4 Chronic kidney disease, stage 4 (severe) (principal); D63.1 Anemia in chronic kidney disease
CPT/HCPCS: 36415; 82728

== ENCOUNTER 2025-10-08 08:57 | Outpatient (CLI) | payer MEDICARE, SELFPAY ==
--- OUTSIDE RECORDS SUMMARY | 2024-05-08 06:00 | XMS_ITS ---
Author Organization [facility] Address [address] [place] [address] Care Team Providers Care Chief Supply Chain Officer Name Role Phone Winston Webster Primary Care Provider Liliana Avalos [phone] REASON FOR VISIT med ck Encounters Encounter Location Date Provider Diagnosis [address] [address] 05/08/2024 Liliana Avalos Plan Of Treatment No Information Progress Notes * Chacha HAYWARD ADOB:[birth year] (75 yo F)Acc No.[id number]:05/08/2024 Progress Notes Patient: Chacha MONDRAGON Provider: Phu Avalos APRN :1950 A ge:74 Y S ex:Female Date:05/08/2024 Address:[address] [id number] Pcp:Winston Webster Subjective: * Chief Complaints: * 1 . Med ck. * Medical History: Objective: * Vitals: Assessment: Plan: * Treatment: * * Electronic signature of Gaby Avalos APRN on 10/08/2025 at 09:05 AM EST Sign off status: Pending * Provider: Phu Avalos APRN Date: 0 05/08/2024 Generated for Timur lr/Ronda/eTransmitting on: 12/08/2024 09:05 AM EST
--- OUTSIDE RECORDS SUMMARY | 2024-06-12 07:30 | XMS_ITS ---
Author Organization [facility] Address [address] [place] [address] Care Team Providers Care System Support Analyst Name Role Phone Winston Webster Primary Care Provider Liliana Avalos [phone] Encounters Encounter Location Date Provider Diagnosis [address] [address] 06/12/2024 Liliana Avalos Plan Of Treatment No Information Progress Notes * Chacha HAYWARD ADOB:[birth year] (75 yo F)Acc No.[id number]:06/12/2024 Progress Notes Patient: Chacha MONDRAGON Provider: Phu Avalos APRN :1950 A ge:74 Y S ex:Female Date:06/12/2024 Address:[address] [id number] Pcp:Winston Webster Subjective: * Chief Complaints: * * Medical History: Objective: * Vitals: Assessment: Plan: * Treatment: * * Electronic signature of Gaby Avalos APRN on 10/08/2025 at 09:06 AM EST Sign off status: Pending * Provider: Phu Avalos APRN Date: 0 06/12/2024 Generated for Timur lr/Ronda/eTransmitting on: 1 12/08/2024 09:06 AM EST
--- OUTSIDE RECORDS SUMMARY | 2025-03-06 16:30 | XMS_ITS ---
Author Organization [facility] D GINNY Address [address] [place] [address] Care Team Providers Care Business Support Assistant Name Role Phone Winston Webster Primary Care Provider Migration, Provider Unavailable Unavailable Allergies Allergen (clinical drug ingredient) Drug/Non Drug Allergy documented on EMR Reaction Allergy Type Onset Date Status IV DYES (uncoded) Unknown Allergy Ac tive Latex LATEX (uncoded) Unknown Allergy Acti ve angiotensin-converting enzyme inhibitor (FN) ANDREWS Inhibitors Unknown Drug Allergy Acti ve morphine Morphine Unknown Drug Allergy [facility] Conversion Encounter Medications Medication SIG (Take, Route, [...] review and pick correct [facility]ul[facility]. If intended option is not shown, [...] tab(s) orally every 6 hours Active Nystatin 879464 UNIT/GM 1 truong applied topically 3 times [...] Active Encounters Encounter Location Date Provider Diagnosis [facility] PED G[facility] [address] [facility] [address] [place] [address] 03/06/2025 Provider Migration Recurrent UTI N39.0 Assessments [...] Chacha HAYWARD ADOB:[birth year] (75 yo F)Acc No.[id number]:03/06/2025 Patient: Alejandra ELIZABETHChacha Provider: Yobany Mancera :1950 A ge:75 Y S ex:Female Date:03/06/2025 Address:[facility] [address], [id number] Pcp:Winston Webster Subjective: * Chief Complaints: * 1 . Multum To Medispan Conversion Encounter. * Medical History: * Medications: T aking Nystatin 618657 UNIT/GM Powder 1 truong applied topically 3 [...] Electronic signature of Prov ider Migration on 10/08/2025 at 09:06 AM EST Sign off status: Pending * Provider: Yobany valderrama Migration Date: 0 03/06/2025 Generated for Timur lr/Ronda/Toby on: 1 12/08/2024 09:06 AM EST
--- OUTSIDE RECORDS SUMMARY | 2025-08-09 07:11 | XMS_ITS ---
Author Organization [facility] Address [address] [facility] [address] [facility] [address] [place] [address] Care Team Providers Care Crossing Tender Name Role Phone Winston Webster Primary Care Provider Amber Lechuga [facility] [phone] Results Component Value Reference Range Notes Echocardiogram Reviewed date:08/30/2025 02:52:28 PM Interpretation: Performing Lab: Notes/Report: Echocardiogram Reviewed date:08/30/2025 02:52:28 PM Interpretation: Performing Lab: Notes/Report: Encounters Encounter Location Date Provider Diagnosis [facility] [address] [place] [address] [facility] [address] [place] [address] 08/09/2025 Amber Lechuga Dyspnea on exertion R06.09 Assessments Encounter Date Diagnosis (ICD Code) Assessment Notes Treatment Notes Treatment Clinical Notes Section Notes 08/09/2025 Dyspnea on exertion (ICD-10 - R06.09) Plan Of Treatment No Information Progress Notes * Chacha HAYWARD ADOB:[birth year] (75 yo F)Acc No.[id number]:08/09/2025 Patient: Chacha MONDRAGON :1950 A ge:75 Y S ex:Female Address[facility] [place], [address] Subjective: * Chief Complaints: * * Medical History: * Surgical History: * Hospitalization/Major Diagno stic Procedure: * Medications: Objective: * Vitals: * Physical Examination: Assessment: * Assessment: 1. D yspnea on exertion - R06.09 Plan: * Treatment: * * Procedure Codes: * true * Date: Generated for Timur Taylor/Toby on: 12/08/2024 09:06 AM EST
--- OUTSIDE RECORDS SUMMARY | 2025-09-13 13:20 | XMS_ITS | Encounter Summary ---
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 Enmanuel Castillo MD [address] [address] Phone: tel: fax: Referral ID Status Reason Start Date Expiration Date V isits Requested Visits Authorized [id number] Authorized 09/13/2025 03/15/2027 1 1 Reason for Visit * Reason Comments Follow-up * (Routine) - Closed Specialty Diagnoses / Procedures Referred By Gaby presley Referred To Contact Diagnoses Benign essential hypertension Enmanuel Castillo MD [address] [address] Phone: tel: fax: Referral ID Status Reason Start Date Expiration Date Visits Re quested Visits Authorized [id number] Closed 05/10/2025 11/09/2026 1 1 Encounter Details Date Type Department Care Team (Latest Contact Info) Description 09/13/2025 2:20 PM EDT Office Visit [facility] Nephrology, Bone & Mineral Metabolism [address] [facility] [address], [address] [place] [address] Dave Galicia MD [address] [place] [address] Dysuria (Primary Dx); Stage 4 chronic kidney disease (CMS/HCC); 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); Chronic glomerulonephritis syndrome; Citrobacter infection; Acute cystitis without hematuria Social History Tobacco Use Types Packs/Day Years Used Date Smoking Tobacco: Never Passive Smoke Exposure: Never Smokeless Tobacco: Never Alcohol Use Standard Drinks/Week Comments No 0 (1 standard drink = 0.6 oz pure alcohol) Alcoholic Drinks/day: Never Drank Alcohol PHQ-2 Answer Date Recorded Patient Health Questionnaire-2 Score 4 09/13/2025 PHQ-9 Answer Date Recorded Patient Health Questionnaire-9 Score 18 09/13/2025 AUDIT-C Answer Date Recorded Q1: How often [...] Sign Reading Time Taken Comments Blood Pressure 146/90 09/13/2025 2:28 PM EDT Pulse 95 09/13/2025 2:15 PM EDT Temperature 36.3 C (97.3 F) 09/13/2025 2:15 PM EDT Respiratory Rate - - Oxygen Saturation 95% 09/13/2025 2:15 PM EDT Inhaled Oxygen Concentration - - Weight 57.6 kg (127 lb) 09/13/2025 2:15 PM EDT Height 142.2 cm (4' 8 ) 09/13/2025 2:15 PM EDT Body Mass Index 28.47 09/13/2025 2:15 PM EDT documented in this encounter Functional Status * Over the past 2 weeks, how often have you been bothered by any of the following problems? Question Answer Date of Assessment Author Little interest or pleasure in doing things Nearly every day 09/13/2025 2:21 PM EDT Hannah Jane Feeling down, depressed, or hopeless Several days 09/13/2025 2:21 PM EDT Yenifer Jane Patient Health Questionnaire-2 Score 4 09/13/2025 2:21 PM EDT João Jane * Question Answer Date of Assessment Author Trouble falling or staying asleep, or sleeping too much Nearly every day 09/13/2025 2:21 PM EDT Yenifer Jane Feeling tired or having little energy Nearly every day 09/13/2025 2:21 PM EDT Yenifer Jane Poor appetite or overeating Nearly every day 09/13/2025 2:21 PM EDT Yenifer Jane Feeling bad about yourself - or that you are a failure or have let yourself or your family down Not at all 09/13/2025 2:21 PM EDT Yenifer Jane Trouble concentrating on things, such as reading the newspaper or watching television More than half the days 09/13/2025 2:21 PM EDT Hannah Jane Moving or speaking so slowly that other people could have noticed? Or the opposite - being so fidgety or restless that you have been moving around a lot more than usual. Nearly every day 09/13/2025 2:21 PM EDT Yenifer Jane Thoughts that you would be better off or hurting yourself in some way Not at all 09/13/2025 2:21 PM EDT Yenifer Jane Patient Health Questionnaire-9 Score 18 09/13/2025 2:21 PM EDT João Jane * How difficult have these problems made it for you to do your work, take care of things at home, or get along with other people? Answer Date of Assessment Author Extremely difficult 09/13/2025 2:21 PM KIMMIET Hannah cD documented as of this encounter Miscellaneous Notes * Progress Notes - Dave Galicia MD - 09/13/2025 2:20 PM EDT SUBJECTIVE Myriam Hayward is a 75 y.o. female who presents for follow-up. Ms. Hayward is a 75 y.o. female with a history of systemic lupus diagnosed years ago, and also a history of membranous lupus nephritis. Her . She remains on CellCept 500 mg and plaquenil. She follows with Rheumatology. Verbal consent was obtained to use ambient listening technology to assist in the documentation of the encounter: yes History of Present Illness The patient presents for evaluation of hypertension and suspected urinary tract infection (UTI). She reports normotensive home blood pressure readings averaging 127/80 mmHg but notes episodic elevations during periods of illness, including a systolic measurement of 157 mmHg during a recent medical consultation. She experienced sustained hypertension for two weeks following an anemia injection,accompanied by asthenia and impaired ambulation. Recent home blood pressure readings have returned to normal; however, no recent laboratory work has been conducted. The patient suspects a UTI, reporting dysuria without associated fever or chills. She has a historyof recurrent UTIs, occurring approximately monthly. She was previously prescribed a 7-day course ofantibiotics for a UTI in August 2025, but she believes the infection was not fully eradicated. She is not currently on antibiotic therapy. OBJECTIVE Vitals: 09/13/25 1428 BP: (!) 146/90 Pulse: Temp: SpO2: PHYSICAL EXAMINATION Constitutional: No acute distress, well-nourished Respiratory: no signs of respiratory distress Cardiovascular: Regular rate, No JVD Gastrointestinal: Soft, non-tender, non-distended Ext: No edema; uses mobile chair Neurologic: Alert and oriented Renal Panel: Lab Results Component Value Date NA 136 09/13/2025 NA 138 05/06/2025 NA 140 01/11/2025 K 4.5 09/13/2025 K 4.2 05/06/2025 K 5.1 (H) 01/11/2025 CL 99 09/13/2025 CO2 22 09/13/2025 CO2 21 (L) 05/06/2025 CO2 22 01/11/2025 BUN 37 (H) 09/13/2025 BUN 40 (H) 05/06/2025 BUN 43 (H) 01/11/2025 CREATININE 2.90 (H) 09/13/2025 CREATININE 3.36 (H) 05/06/2025 CREATININE 2.71 (H) 01/11/2025 EGFR 16.3 09/13/2025 EGFR 13.7 05/06/2025 EGFR 17.8 01/11/2025 ALBUMIN 4.1 09/13/2025 ALBUMIN 4.0 05/06/2025 ALBUMIN 4.1 01/11/2025 MBD: Lab Results Component Value Date PTH [...] 4 2/2 SLE w/ Proteinuria - creatinine 2.29 from 3.36. Improving despite current UTI. 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 Urinary Tract Infection (UTI): Acute. - Reports dysuria; history of recurrent UTIs. - Urinalysis with reflex culture to confirm diagnosis and guide treatment. - No current antibiotics; previous course lasted 7 days in 08/2025. - Urine Culture showed Schuler-sensitive >=100,000 CFU/mL Citrobacter freundii complex - Will treat with Levofloxacin 500 mg every other day for 4 doses. (Treating as complicated due to Immunosuppressed status) 3. Systemic lupus with membranous nephropathy, - on MMF and plaquenil, no recent flares - Follows [facility] 4. Hypertension, - BP adequately controlled on current regimen - Nifedipine 30 mg daily 5. Renal osteodystrophy. - Vit D 25, PTH pending from today - On tums, previous hypocalcemia with prolia 6. Anemia, chronic disease - Hb <10; iron 2/25 in normal range - Continue Aranesp. Dr. Sanchez to continue to assist with that. Patient is on monthly Aranesp infusions. 09/15/2025 - I called the patient and updated her regarding her labs and Urine testing with UTI results. She wanted her Rx sent to [facility]. Script was electronically submitted. RTC with repeat labs in 6 months. Dave Galicia MD. FACP. Nephrology and Critical Care Medicine Fellow Pager: [phone] or [place] secure chat Cosigned by Enmanuel Castillo MD at 09/16/2025 9:16 AM EDT Associated attestation - Enmanuel Castillo MD - 09/16/2025 9:16 AM EDT I saw and evaluated the patient with the resident/fellow. I discussed the case with the resident/fellow and agree with the findings and plan as documented. documented in this encounter Plan of Treatment Upcoming Encounters Date Type Department Care Team (Late st Contact Info) Description 10/22/2025 12:15 PM EST Office Visit [facility] [address], [address] [place] [address] Yan Rowland MD [address] [place] [address] 11/19/2025 9:45 AM EST Office Visit [facility] Medicine Specialties [address], [address] [place] [address] Yareli Puga DO [address] [place] [address] 03/14/2026 1:20 PM EDT Office Visit [facility] Nephrology, Bone & Mineral Metabolism [address], [address] [place] [address] Scheduled Orders Name Type Priority Associated Diagnoses Orde r Schedule Urinalysis with reflex microscopic (Culture NOT Included) Lab Routine Stage 4 chronic kidney disease (CMS/HCC) 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 Expected: 03/14/2026, Expires: 03/17/2027 Creatinine, Random, Urine Lab Routine Stage 4 chronic kidney disease (CMS/HCC) 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 Expected: 03/14/2026, Expires: 03/17/2027 Protein, Random, Urine with Creatinine Lab Routine Stage 4 chronic kidney disease (CMS/HCC) 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 Expected: 03/14/2026, Expires: 03/17/2027 Renal Function Panel, Plasma Lab Routine Stage 4 chronic kidney disease (CMS/HCC) 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 Expected: 03/14/2026, Expires: 03/17/2027 CBC and Differential Lab Routine Stage 4 chronic kidney disease (CMS/HCC) 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 Expected: 03/14/2026, Expires: 03/17/2027 Albumin-creatinine ratio, urine, random Lab Routine Stage 4 chronic kidney disease (CMS/HCC) 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 Expected: 03/14/2026, Expires: 03/17/2027 Ferritin, Serum Lab Routine Stage 4 chronic kidney disease (CMS/HCC) 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 Expected: 03/14/2026, Expires: 03/17/2027 Iron & Total Iron Binding Capacity, Plasma (Includes Transferrin) Lab Routine Stage 4 chronic kidney disease (CMS/HCC) 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 Expected: 03/14/2026, Expires: 03/17/2027 Iron & Total Iron Binding Capacity, Plasma (Includes Transferrin) Lab Routine Dysuria Stage 4 chronic kidney disease (CMS/HCC) 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 Expected: 09/13/2025 (Approximate), Expires: 03/14/2027 Scheduled Referrals Name Type Priority Associated Diagnoses Orde r Schedule Follow Up Nephrology Outpatient Referral Routine Stage 4 chronic kidney disease (CMS/HCC) 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 Expected: 03/14/2026 (Approximate), Expires: 03/17/2027 documented as of this encounter Visit Diagnoses Diagnosis Dysuria- Primary Stage 4 chronic kidney disease (CMS/HCC) 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) Nephritis and nephropathy, not specified as acute or chronic, with other specified pathological lesion in kidney, in diseases classified elsewhere Chronic glomerulonephritis syndrome Chronic glomerulonephritis with unspecified pathological lesion in kidney Citrobacter infection Infection due to other gram-negative organisms in conditions classified elsewhere and of unspecified site Acute cystitis without hematuria documented in this encounter Additional Health Concerns Assessment Noted Time PHQ-9 Depression Total Score: 18 025 2:21 PM EDT A fall risk assessment has been complete d for the patient 09/13/2025 2:26 PM EDT A Body Mass Index follow-up plan has been documented for the patient 09/16/2025 9:16 AM EDT documented as of this encounter Care Teams Trim Carpenter Relationship Specialty Start Date End Date Liliana Gar, NATURAL FOODS CLERK [address] [place] [address] PCP - General 02/23/25 documented as of this encounter
--- OUTSIDE RECORDS SUMMARY | 2025-10-08 09:04 | XMS_ITS | Encounter Summary ---
Author Organization [facility] Address [address] [place] [address] Care Team Providers Care Corporate Attorney Name Role Phone Winston Webster MD Primary Care Provider [phone] Liliana Gar APRN Primary Care Provider [phone] Encounter Details Date Type Department Care Team (Late st Contact Info) Description 06/12/2024 Orders Only External Location [address] [place] [address] Provider, External Social History Tobacco Use Types [...] Description 10/22/2025 12:15 PM EST Office Visit [place] [facility] [address], [address] [place] [address] Yan Rowland MD [address] [place] [address] 11/19/2025 9:45 AM EST Office Visit [facility] [address], [address] [place] [address] Edd Yareli, DO [address] [place] [address] 03/14/2026 1:20 PM EDT Office Visit [facility] Nephrology, Bone & Mineral Metabolism [address], [address] [place] [address] documented as of this encounter Procedures Procedure Name Priority Date/Time Associated Diagnosis Comments CT NEURO OUTSIDE IMAGES 06/12/2024 11:16 AM EDT documented in this encounter Results * CT NEURO OUTSIDE IMAGES (06/12/2024 11:16 AM EDT) Anatomical Region Laterality Modality Computed Tomogra phy 06/12/2024 11:1 6 AM EDT us External Provider IMG CT PROCEDURES Final Result documented in this encounter Visit Diagnoses Not on filedocumented in this encounter Additional Health Concerns Assessment Noted Time A fall risk assessment has been complete d for the patient 04/17/2024 11:18 AM EDT A Body Mass Index follow-up plan has been documented for the patient 04/17/2024 11:40 AM EDT documented as of this encounter Care Teams Corporate Attorney Relationship Specialty Start Date End Date Winston Webster MD [address] [place] [address] PCP - General 04/14/21 02/22/25 Liliana Gar APRN [address] [place] [address] PCP - General 02/23/25 documented as of this encounter
--- OUTSIDE RECORDS SUMMARY | 2025-10-08 09:04 | XMS_ITS | Clinical Summary ---
Author Organization [facility] Address [address] [place] [address] Care Team Providers Care Certified Coding Specialist Name Role Phone Unavailable Primary Care [...]
--- OUTSIDE RECORDS SUMMARY | 2025-10-08 09:05 | XMS_ITS | Encounter Summary ---
Author Organization [facility] Address [address] [place] [address] Care Team Providers Care Stock Mover Name Role Phone Liliana Gar YURIY Primary Care Provider [phone] Reason for Referral * Consultation (Routine) - Closed Specialty Diagnoses / Procedures Referred By Gaby presley Referred To Contact Neurosurgery Diagnoses Brain mass Emilee Tejeda MD [address] [facility] [address] [place] [address] Phone: tel: fax: Referral ID Status Reason Start Date Expiration Date V isits Requested Visits Authorized [id number] Closed Specialty Services Required 02/26/2025 08/28/2026 1 1 Encounter Details Date Type Department Care Team (Late st Contact Info) Description 02/26/2025 Community [facility] [address] [place] [address] Emilee Tejeda MD [address] [facility] [address] [place] [address] Brain mass (Primary Dx) Social History [...] Description 10/22/2025 12:15 PM EST Office Visit [facility] [address] [place] [address] Yan Rowland MD [address] [facility] [address] [place] [address] 11/19/2025 9:45 AM EST Office [facility] Medicine Specialties [address], [address] [place] [address] Yareli Puga DO [address] [facility] [address] [place] [address] 03/14/2026 1:20 PM EDT Office Visit [facility] Nephrology, Bone & Mineral Metabolism [address] [facility], [address] [place] [address] Scheduled Referrals Name Type Priority Associated Diagnoses [...] documented as of this encounter Care Teams Stock Mover Relationship Specialty Start Date End Date Liliana Gar APRN [address] [facility] [address] [place] [address] PCP - General 02/23/25 documented as of this encounter
--- OUTSIDE RECORDS SUMMARY | 2025-10-08 09:06 | XMS_ITS | Encounter Summary ---
Author Organization [facility] Address [address] [place] [address] Care Team Providers Care Bundle Person Name Role Phone Winston Webster MD Primary Care Provider [phone] Liliana Gar APRN Primary Care Provider [phone] Reason for Visit * Reason Comments Med Refill Encounter Details Date Type Department Care Team (Late Contact Info) Description 05/04/[address]22 [address] [facility] [address] [facility] [address] [place] [address] Enmanuel Castillo MD [address] [address] Social History Tobacco Use Types [...] Department Care Team (Late Contact Info) Description 10/22/2025 12:15 PM EST Office Visit [place] [facility] [address], [address] [place] [address] Yan Rowland MD [address] [place] [address] 11/19/2025 9:45 AM EST Office Visit [facility] Medicine Specialties [address], [address] [place] [address] Yareli Puga, [address] [place] [address] 03/14/2026 1:20 PM EDT Office Visit [facility] Nephrology, Bone & Mineral Metabolism [address] [facility], [address] [place] [address] documented as of this encounter Visit Diagnoses Not on filedocumented in this encounter Additional Health Concerns Assessment Noted Time A fall risk assessment has been complete d for the patient 11/28/2021 1:17 PM EST documented as of this encounter Care Teams Bundle Person Relationship Specialty Start Date End Date Winston Webster MD [address] [place] [address] PCP - General 04/14/21 02/22/25 Liliana Gar APRN [address] [place] [address] PCP - General 02/23/25 documented as of this encounter
--- OUTSIDE RECORDS SUMMARY | 2025-10-08 09:06 | XMS_ITS | Encounter Summary ---
Author Organization [facility] Address [address] [place] [address] Care Team Providers Care Public Policy Analyst Name Role Phone Winston Webster MD Primary Care Provider [phone] Liliana Gar APRN Primary Care Provider [phone] Encounter Details Date Type Department Care Team (Late st Contact Info) Description 06/12/2024 Orders Only External Location [address] [place] [address] Provider, External Social History Tobacco Use Types [...] Description 10/22/2025 12:15 PM EST Office Visit [place] [facility] [address], [address] [place] [address] Yan Rowland MD [address] [place] [address] 11/19/2025 9:45 AM EST Office Visit [facility] [address], [address] [place] [address] Edd Yareli, DO [address] [place] [address] 03/14/2026 1:20 PM EDT Office Visit [facility] [place] Nephrology, Bone & [place] Metabolism [address], [address] [place] [address] documented as of this encounter [...] documented as of this encounter Care Teams Public Policy Analyst Relationship Specialty Start Date End Date Winston Webster MD [address] [place] [address] PCP - General 04/14/21 02/22/25 Liliana Gar APRN [address] [place] [address] PCP - General 02/23/25 documented as of this encounter
--- OUTSIDE RECORDS SUMMARY | 2025-10-08 09:06 | XMS_ITS | Encounter Summary ---
Author Organization [facility] Address [address] [place] [address] Care Team Providers Care Outside Sales Consultant Name Role Phone Liliana Gar YURIY Primary Care Provider [phone] Encounter Details Date Type Department Care Team ([facility] Contact Info) Description 09/23/2025 Telephone [facility]phrology, Bone [facility] Metabolism [address], [address] [place] [address] Enmanuel Castillo MD [address] [place] [address] Social History Tobacco Use Types [...] encounter Miscellaneous Notes * Telephone Encounter - Betsy Davidson - 09/23/2025 12:57 PM EDT Returned call, pt has diagnosis of CKD Stage 4, Sarah states she will try that code and call if back if further info is needed * Telephone Encounter - Fatuma Lugo - 09/23/2025 11:46 AM EDT Patient Phone Message Reason for Call: [facility] called to obtain a new diagnosis for the labs the pt did at their facility. They need a new diagnosis to cover the Feratin test ordered 09-01-25 Best contact number and optimal time of day to reach caller: Gogo--[phone] Note: Please do not reply to this message. Follow-up communication and further actions as a result of this message need to be communicated with the patient directly, if the patient is not active onMyChart. If the patient is active on MyChart, they will receive notification of the communication/outcome via [employer]. documented in this encounter Plan of Treatment Upcoming Encounters Date Type Department Care Team (Late st Contact Info) Description 10/22/2025 12:15 PM EST Office Visit [facility] [address], 1st [place] [address] Yan Rowland MD [address] [place] [address] 11/19/2025 9:45 AM EST Office Visit [facility] [address], [address] [place] [address] Yareli Puga DO [address] [place] [address] 03/14/2026 1:20 PM EDT Office Visit [facility] Nephrology, Bone & [place] Metabolism [address], [address] [place] [address] documented as of this encounter Visit Diagnoses [...] documented as of this encounter Care Teams Outside Sales Consultant Relationship Specialty Start Date End Date Liliana Gar APRN [address] [address] PCP - General 02/23/25 documented as of this encounter
--- OUTSIDE RECORDS SUMMARY | 2025-10-08 09:06 | XMS_ITS | Encounter Summary ---
Author Organization [facility] Address [address] [place] [address] Care Team Providers Care Rehab Manager Name Role Phone Liliana Gar YURIY Primary Care Provider [phone] Encounter Details Date Type Department Care Team (Latest Contact Info) Description 09/06/2025 Travel Social History Tobacco Use Types Packs/Day [...] Visit [place] [facility] [address] 1[address] [place] [address] Yan Rowland MD [address] [place] [address] 11/19/2025 9:45 AM EST Office Visit [facility] [address], 2[address] [place] [address] Yareli Puga, [address] [place] [address] 03/14/2026 1:20 PM EDT Office Visit [facility] Nephrology, Bone & [place] Metabolism [address], [address] [place] [address] documented as of this encounter Visit Diagnoses Not on filedocumented in this encounter Additional Health Concerns Assessment Noted Time A fall risk assessment has been complete d for the patient 05/10/2025 10:48 AM EDT A Body Mass Index follow-up plan has been documented for the patient 05/06/2025 11:10 AM EDT documented as of this encounter Care Teams Rehab Manager Relationship Specialty Start Date End Date Liliana Gar, YURIY [address] [facility] [address] [place] [address] PCP - General 02/23/25 documented as of this encounter
--- OUTSIDE RECORDS SUMMARY | 2025-10-08 09:06 | XMS_ITS | Encounter Summary ---
Author Organization [facility] Address [address] [place] [address] Care Team Providers Care Director Of Reservations Name Role Phone Winston Webster MD Primary Care Provider [phone] Liliana Gar APRN Primary Care Provider [phone] Reason for Visit * Reason Comments Med Refill Encounter Details Date Type Department Care Team ([facility] st Contact Info) Description 05/14/2024 Refill [facility] Nephrology, Bone & [place] Metabolism [address] [facility] [address] [facility] [address], [address] [place] [address] Enmanuel Castillo MD [address] [facility] [address] [place] [address] Social History Tobacco Use Types [...] could the lab orders be sent to [facility] in [place]? Best contact number and optimal time of day to reach caller: Pt [phone] Please call if orders sent so pt will know to go to the lab. Note: Please do not reply to this message. Follow-up communication and further actions as a result of this message need to be communicated with the patient directly, if the patient is not active onMyChart. If the patient is active on MyChart, they will receive notification of the communication/outcome via [employer]. * Telephone Encounter - No Hancock LPN - 05/14/2024 7:23 AM EDT Refilled 04/17/24 #180 tablets for 3 months supply documented in this encounter Plan of Treatment Upcoming Encounters Date Type Department Care Team (Late st Contact Info) Description 10/22/2025 12:15 PM EST Office Visit [facility] [address], 1st [place] [address] Yan Rowland MD [address] [place] [address] 11/19/2025 9:45 AM EST Office Visit [facility] Medicine Specialties [address], [address]nd [place] [address] Yareli Puga DO [address] [place] [address] 03/14/2026 1:20 PM EDT Office Visit [facility] [place] Nephrology, Bone & [place] Metabolism [address] [facility] [address], [address] [place] [address] documented as of this encounter Visit Diagnoses Not on filedocumented in this encounter Additional Health Concerns Assessment Noted Time A fall risk assessment has been complete d for the patient 04/17/2024 11:18 AM EDT A Body Mass Index follow-up plan has been documented for the patient 04/17/2024 11:40 AM EDT documented as of this encounter Care Teams Director Of Reservations Relationship Specialty Start Date End Date Winston Webster MD [address] [place] [address] PCP - General 04/14/21 02/22/25 Liliana Gar APRN [address] [place] [address] PCP - General 02/23/25 documented as of this encounter
--- OUTSIDE RECORDS SUMMARY | 2025-10-08 09:06 | XMS_ITS | Encounter Summary ---
Author Organization [facility] Address [address] [place] [address] Care Team Providers Care Room Service Runner Name Role Phone Winston Webster MD Primary Care Provider [phone] Liliana Gar APRN Primary Care Provider [phone] Encounter Details Date Type Department Care Team (Late st Contact Info) Description 06/12/2024 Orders Only External Location [address] [place] [address] Provider, External Social History Tobacco Use Types [...] Description 10/22/2025 12:15 PM EST Office Visit [place] [facility] [address], 1st [place] [address] Yan Rowland MD [address] [place] [address] 11/19/2025 9:45 AM EST Office Visit [facility] [address], [address] [place] [address] Edd Yareli, DO [address] [place] [address] 03/14/2026 1:20 PM EDT Office Visit [facility]phrology, Bone & [place] Metabolism [address], [address] [place] [address] documented as of this encounter [...] documented as of this encounter Care Teams Room Service Runner Relationship Specialty Start Date End Date Winston Webster MD [address] [place] [address] PCP - General 04/14/21 02/22/25 Liliana Gar APRN [address] [place] [address] PCP - General 02/23/25 documented as of this encounter
--- OUTSIDE RECORDS SUMMARY | 2025-10-08 09:06 | XMS_ITS | Encounter Summary ---
Author Organization [facility] Address [address] [place] [address] Care Team Providers Care Brazing Furnace Feeder Name Role Phone Lilinaa Gar YURIY Primary Care Provider [phone] Encounter Details Date Type Department Care Team (Latest Contact Info) Description 09/13/2025 Travel Social History Tobacco Use Types Packs/Day [...] Frequency of Binge Drinking Not on file 0 04/2025 PHQ-2A Answer Date Recorded Patient Health [...] Assessment Author Extremely difficult 09/13/2025 2:21 PM EDT Hannah Dc documented as of this encounter Plan of Treatment Upcoming Encounters Date Type Department Care Team (Late st Contact Info) Description 10/22/2025 12:15 PM EST Office Visit [place] [facility] [address], 1st [place] [address] Yan Rowland MD [address] [place] [address] 11/19/2025 9:45 AM EST Office Visit [place] [facility] [address], [address] [place] [address] Yareli Puga, [address] [place] [address] 03/14/2026 1:20 PM EDT Office Visit [facility] [place] Nephrology, Bone & [place] Metabolism [address] [facility] [address], [address] [place] [address] documented as of this encounter [...] documented as of this encounter Care Teams Brazing Furnace Feeder Relationship Specialty Start Date End Date Liliana Gar, JEWELRY SALES COORDINATOR [address] [facility] [address] [place] [address] PCP - General 02/23/25 documented as of this encounter
--- OUTSIDE RECORDS SUMMARY | 2025-10-08 09:06 | XMS_ITS | Encounter Summary ---
Author Organization [facility] Address [address] [place] [place] [address] Care Team Providers Care Dealer Analyst Name Role Phone Liliana Gar YURIY Primary Care Provider [phone] Encounter Details Date Type Department Care Team ([facility] st Contact Info) Description 09/21/2025 Results Follow-Up [facility] Nephrology, Bone & [place] Metabolism [address], [address] [place] [address] Dave Galicia MD [address] [id number] Social History Tobacco Use Types Packs/Day Years [...] Description 10/22/2025 12:15 PM EST Office Visit [place] [facility] [address], [address] [place] [address] Yan Rowland MD [address] [place] [address] 11/19/2025 9:45 AM EST Office Visit [facility] Medicine Specialties [address], [address] [place] [address] Yareli Puga DO [address] [place] [address] 03/14/2026 1:20 PM EDT Office Visit [facility] [place] Nephrology, Bone & Mineral Metabolism [address], [address] [place] [address] documented as of this encounter [...] documented as of this encounter Care Teams Dealer Analyst Relationship Specialty Start Date End Date Liliana Gar, YURIY [address] [place] [address] PCP - General 02/23/25 documented as of this encounter
--- OUTSIDE RECORDS SUMMARY | 2025-10-08 09:06 | XMS_ITS | Encounter Summary ---
Author Organization [facility] Address [address] [place] [address] Care Team Providers Care Auditor Internal Name Role Phone Winston Webster MD Primary Care Provider [phone] Liliana Gar APRN Primary Care Provider [phone] Encounter Details Date Type Department Care Team (Late st Contact Info) Description 06/12/2024 Orders Only External Location [address] [place] [address] Provider, External Social History Tobacco Use Types [...] Description 10/22/2025 12:15 PM EST Office [facility] [place] [facility] [address], [address] [place] [address] Yan Rowland MD [address] [place] [address] 11/19/2025 9:45 AM EST Office [facility] [address], [address] [place] [address] Edd Yareli, DO [address] [place] [address] 03/14/2026 1:20 PM EDT Office Visit [facility] Nephrology, Bone & [place] Metabolism [address], [address] [place] [address] documented as of this encounter Procedures Procedure Name Priority Date/Time Associated Diagnosis Comments CT NEURO OUTSIDE IMAGES 06/12/2024 11:18 AM EDT documented in this encounter Results * CT NEURO OUTSIDE IMAGES (06/12/2024 11:18 AM EDT) Anatomical Region Laterality Modality Computed Tomogra phy 06/12/2024 11:1 8 AM EDT us External Provider IMG CT [...] documented as of this encounter Care Teams Auditor Internal Relationship Specialty Start Date End Date Winston Webster MD [address] [place] [address] PCP - General 04/14/21 02/22/25 Liliana Gar APRN [address] [place] [address] PCP - General 02/23/25 documented as of this encounter
--- OUTSIDE RECORDS SUMMARY | 2025-10-08 09:07 | XMS_ITS | Clinical Summary ---
Author Organization [facility] Address [address] [place] [address] Care Team Providers Care Public Relations Manager Name Role Phone Liliana Gar CHEMICAL TREATMENT PLANT TECHNICIAN Primary Care Provider [phone] Allergies Active Allergy Reactions Criticality Noted Date [...] 14 days. 2 mL 1 5 Active levoFLOXacin (Levaquin) 500 MG tabletIndications:D ysuria,Citrobacter infection,Acute cystitis without hematuria Take 1 tablet by mouth every other day. 4 tablet 5 Active Active Problems Problem Noted Date [...] Encounters Date Type Department Care Team Description 09/23/2025 Telephone [facility] Ne[facility]rology, [facility] Min[facility] Met[facility] [address], [address] [place] [address] Enmanuel Castillo MD 09/21/2025 Results Follow-Up [facility] Nephrology, Bone & Mineral Metabolism [address], [address] [place] [address] Dave Galicia MD 09/13/2025 2:20 PM EDT Office Visit [facility] Nephrology, Bone & Mineral Metabolism [address], [address] [place] [address] Dave Galicia MD Dysuria (Primary Dx); Stage 4 chronic kidney disease (CMS/HCC); 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); Chronic glomerulonephritis syndrome; Citrobacter infection; Acute cystitis without hematuria 09/13/2025 Travel 09/06/2025 Travel from Last 3 Months Immunizations Immunization [...] Cousin Colon cancer Father David Diabetes Father [place] Hypertension Father [place] Breast cancer Mother [place] Diabetes Mother [place] Hypertension Mother [place] Lung cancer Mother [place] Skin cancer Mother [place] Alcohol abuse Other 1 Cancer Other 2 Colon cancer Other 3 Diabetes Other 4 Drug abuse Other 5 Hyperlipidemia Other 6 Hypertension Other 7 Hyperthyroidism Other 8 Hypothyroidism Other 9 Lung cancer Other 10 Ovarian cancer Other 11 Cancer Sister Roxane Hahn Relation Name Status Comments Cousin Father David Mother [place] Other 1 Other 2 Other 3 Other [...] F) 09/13/2025 2:15 PM EDT Respiratory Rate 16 05/10/2025 10:46 AM EDT Oxygen Saturation 95% 09/13/2025 2:15 PM EDT Inhaled Oxygen Concentration - - Weight 57.6 kg (127 lb) 09/13/2025 2:15 PM EDT Height 142.2 cm (4' 8 ) 09/13/2025 2:15 PM EDT Body Mass Index 28.47 09/13/2025 2:15 PM EDT Plan of Treatment Upcoming Encounters Date Type Department Care Team (Late st Contact Info) Description 10/22/2025 12:15 PM EST Office Visit [facility] [address] [place] [address] Yan Rowland MD [address] [place] [address] 11/19/2025 9:45 AM EST Office Visit [facility] Medicine Specialties [address] [place] [address] Yareli Puga [address] [place] [address] 03/14/2026 1:20 PM EDT Office Visit [facility] Nephrology, Bone & Mineral Metabolism [address], [address] [place] [address] Health Maintenance Due Date Last Done Comments [facility]-Hepatitis C Screening 1950 [facility]-Medicare Annual Wellness (AWV) 1950 [facility]-/Child/Adol SDOH Screenings 1950 [facility]- SDOH Screenings 1967 [facility]-Adult SDOH Screenings 1967 [facility]-DTaP,Tdap,and Td Vaccines (1 - Tdap) 02/21/1968 [facility]-Zoster Vaccines (1 of 2) 02/21/1968 MDA-ERAON-95 Vaccine (3 - Moderna risk series) 03/23/2021 02/23/2021, 01/26/2021 [facility]-RSV Vaccine: 60+ Years or (1 - 1-dose 75+ series) 02/21/2024 [facility]-Bone Density Scan 01/09/2025 01/09/2024 [facility]-Influenza Vaccine (#1) 08/02/202511/24, 10/04/2023, 09/04/2022, Additional history exists [facility]-Depression Screening 09/13/2026 09/13/2025, 09/01 [facility]-Pneumococcal Vaccine: 50+ Years Completed 11/17/2019, 08/23/2016, 09/08/2014 [facility]-Obesity Intervention Completed 025, 05/06/2025, 04/09/2025, Additional history exists HPV Vaccines Aged Out No longer eligi [...] Procedure Name Priority Date/Time Associated Diagnosis Comments SEND LUIS MIGUEL MESSAGE Routine 09/13/2025 3: 25 PM EDT Dysuria URINALYSIS MICROSCOPIC FOR UA REFLEX Routine 09/13/2025 3:25 PM EDT Dysuria URINE GOMEZ PANEL Routine 09/13/2025 3:25 PM EDT Dysuria URINALYSIS WITH REFLEX MICROSCOPIC Routine 09/13/2025 3:25 PM EDT Dysuria URINALYSIS WITH REFLEX MICROSCOPIC AND CULTURE Routine 09/13/2025 3:25 PM EDT Dysuria URINE CULTURE Routine 09/13/2025 3:25 PM EDT Dysuria RENAL FUNCTION PANEL, PLASMA Routine 09/13/2025 3:24 PM EDT Benign essential hypertension Anemia in other chronic diseases classified elsewhere Stage 4 chronic kidney disease (CMS/HCC) CBC W/O DIFFERENTIAL Routine 09/13/2025 3:24 PM EDT Benign essential hypertension Anemia in other chronic diseases classified elsewhere Stage 4 chronic kidney disease (CMS/HCC) IRON & TOTAL IRON BINDING CAPACITY, PLASMA (INCLUDES TRANSFERRIN) Routine 09/13/2025 3:24 PM EDT Anemia in other chronic diseases classified elsewhere FERRITIN, SERUM Routine 09/13/2025 3:24 PM EDT Anemia in other chronic diseases classified elsewhere DEXA BONE DENSITY Routine 01/09/2024 4:1 1 PM EST Age related osteoporosis, unspecified pathological fracture presence from Last 3 Months or Most Recently Relevant to Health Maintenance Results * SEND LUIS MIGUEL MESSAGE (09/13/2025 3:25 PM EDT) Urine Urine specimen obtained by clean catch procedure / Unknown Non-blood Collection / Unknown 09/13/2025 3:25 PM EDT 09/13/2025 3:25 PM EDT Enmanuel Castillo MD LAB URINE ORDERABLES Final Re sult Performing Organization Address [facility] de Phone Number [facility] [address] [place] [address] * Urine Gomez Panel (09/13/2025 3:25 PM EDT) Extra Sent for Culture 09/13/2025 7:01 PM EDT [facility] Comment:Previously prelim ve rified as Specimen evaluation in progress on 09/13/2025 at 1802 EDT. Urine Urine specimen obtained by clean catch procedure / Unknown Non-blood Collection / Unknown 09/13/2025 3:25 PM EDT 09/13/2025 3:25 PM EDT Enmanuel Castillo MD LAB URINE ORDERABLES Final Re sult Performing Organization Address [facility] Co de Phone Number [facility] [address] [place] [address] * Urinalysis Microscopic Examination (09/13/2025 3:25 PM EDT) Urine Urine specimen obtained by clean catch procedure / Unknown Non-blood Collection / Unknown 09/13/2025 3:25 PM EDT 09/13/2025 3:25 PM EDT Enmanuel Castillo MD LAB URINE ORDERABLES Final Re sult Performing Organization Address [facility] Co de Phone Number [facility] [address] [place] [address] * (ABNORMAL) Urinalysis with reflex microscopic (Culture NOT Included) (09/13/2025 3:25 PM EDT) Color, Urine Yellow LAB URINALYSIS - AUTOMATED METHOD 09/13/2025 6:39 PM EDT [facility] Clarity, Urine Cloudy LAB URINALYSIS - AUTOMATED METHOD 09/13/2025 6:39 PM EDT [facility] Spec [place], Urine 1.020 1.005 - 1.030 LAB URINALYSIS - AUTOMATED METHOD 09/13/2025 6:39 PM EDT [facility] pH, Urine 6.0 5.0 - 8.0 LAB URINALYSIS - AUTOMATED METHOD 09/13/2025 6:39 PM EDT [facility] Protein, Urine 100(A) Negative mg/dL LAB URINALYSIS - AUTOMATED METHOD 09/13/2025 6:39 PM EDT [facility] Glucose, Urine Negative Negative mg/dL LAB URINALYSIS - AUTOMATED METHOD 09/13/2025 6:39 PM EDT [facility] Ketones, Urine Negative Negative mg/dL LAB URINALYSIS - AUTOMATED METHOD 09/13/2025 6:39 PM EDT [facility] Blood, Urine Moderate(A) Negative LAB URINALYSIS - AUTOMATED METHOD 09/13/2025 6:39 PM EDT [facility] Bilirubin, Urine Negative Negative LAB URINALYSIS - AUTOMATED METHOD 09/13/2025 6:39 PM EDT [facility] Urobilinogen, Urine 0.2 0.2 to 1.0 mg/dL LAB URINALYSIS - AUTOMATED METHOD 09/13/2025 6:39 PM EDT [facility] Leukocytes, Urine Large(A) Negative LAB URINALYSIS - AUTOMATED METHOD 09/13/2025 6:39 PM EDT [facility] Nitrite, Urine Positive(A) Negative LAB URINALYSIS - AUTOMATED METHOD 09/13/2025 6:39 PM EDT [facility] RBC, Urine <1 0 to 3 /HPF 09/13/2025 6:39 PM EDT [facility] Comment:This result was prev iously suppressed from the chart. WBC, Urine >50(A) 0 to 5 /HPF 09/13/2025 6:39 PM EDT [facility] Comment:This result was prev iously suppressed from the chart. Squamous Epithelial Cells 0 - 2 0 to 5 /HPF 09/13/2025 6:39 PM EDT [facility] Comment:This result was prev iously suppressed from the chart. Hyaline Casts 0 - 2 0 to 5 /LPF 09/13/2025 6:39 PM EDT [facility] Comment:This result was prev iously suppressed from the chart. Bacteria, Urine Present Negative 09/13/2025 6:39 PM EDT [facility] Comment:This result was prev iously suppressed from the chart. Urine Urine specimen obtained by clean catch procedure / Unknown Non-blood Collection / Unknown 09/13/2025 3:25 PM EDT 09/13/2025 3:25 PM EDT Narrative [facility] - 09/13/2025 6:39 PM EDT Performed by manual method us Enmanuel Castillo MD LAB URINE ORDERABLES Final Re sult [facility] [address] [place] [id number] * (ABNORMAL) Urine Culture (09/13/2025 3:25 PM EDT) Culture >=100,000 CFU/mL Citrobacter freundii complex(A) ANDREE 09/16/2025 9:59 AM EDT [facility] Comment: This isolate has been identified using the FDA Approved [employer] (now [employer] [place] System Edited result: Previously reported as Gram Negative Ryan on 09/14/2025 at 1618 EDT. Urine Urine specimen obtained by clean catch procedure / Unknown Non-blood Collection / Unknown 09/13/2025 3:25 PM EDT 09/13/2025 3:25 PM EDT Narrative Organism Antibiotic Method Susceptibility Citrobacter freundii complex Amoxicillin/Clavulanate ANDREE >16/8 ug/ml: Resistant Citrobacter freundii complex Ampicillin ANDREE >16 ug/ml: Resistant Citrobacter freundii complex Ampicillin/Sulbactam ANDREE >16/8 ug/ml: Resistant Citrobacter freundii complex Aztreonam ANDREE 16 ug/ml: Resistant Citrobacter freundii complex Cefazolin ANDREE >16 ug/ml: Resistant Citrobacter freundii complex Cefepime ANDREE 1 ug/ml: Susceptible Citrobacter freundii complex Ceftriaxone ANDREE >32 ug/ml: Resistant Citrobacter freundii complex Ciprofloxacin ANDREE <=0.25 ug/ml: Susceptible Citrobacter freundii complex Gentamicin ANDREE <=2 ug/ml: Susceptible Citrobacter freundii complex Levofloxacin ANDREE <=0.25 ug/ml: Susceptible Citrobacter freundii complex Nitrofurantoin ANDREE <=16 ug/ml: Susceptible Citrobacter freundii complex Piperacillin/Tazobactam ANDREE >64/4 ug/ml: Resistant Citrobacter freundii complex Tetracycline ANDREE <=2 ug/ml: Susceptible Citrobacter freundii complex Tobramycin ANDREE <=2 ug/ml: Susceptible Citrobacter freundii complex Trimethoprim/Sulfamethoxaz ole ANDREE <=0.5/9.5 ug/ml: Susceptible Citrobacter freundii complex Ertapenem ETEST 0.125 ug/ml: Susceptible Citrobacter freundii complex Meropenem ETEST 0.047 ug/ml: Susceptible Comment: This organism may produce inducible or derepressed AmpC -lactamase, which can lead to treatment failure with third-generation cephalosporins (e.g., ceftriaxone, ceftazidime) despite apparent in vitro susceptibility. In serious infections (e.g., bacteremia), agents such as cefepime or carbapenems are preferred. Consider discussing with infectious disease or antimicrobial stewardship team. The previously reported component Ertapenem is no longer being reported. us Enmanuel Castillo MD LAB MICROBIOLOGY - GENERAL OR DERABLES Final Result Performing Organization Address [facility] Co de Phone Number [facility] [address] [place] [address] * (ABNORMAL) Iron & Total Iron Binding Capacity, Plasma (Includes Transferrin) (09/13/2025 3:24 PM EDT) Iron, Plasma 63 30 - 160 ug/dL 09/13/2025 6:05 PM EDT [facility] Transferrin, Plasma 187(L) 200 - 360 mg/dL 09/13/2025 6:05 PM EDT [facility] Total Iron Binding Capacity, Plasma 234(L) 240 - 450 ug/mL 09/13/2025 6:05 PM EDT [facility] Transferrin Saturation 27 14 - 50 % 09/13/2025 6:05 PM EDT [facility] Blood Venous blood specimen / Unknown Venipuncture / Unknown 09/13/2025 3:24 PM EDT 09/13/2025 3:24 PM EDT us Enmanuel Castillo MD LAB BLOOD ORDERABLES Final Re sult Performing Organization Address [facility]/ZIP Co de Phone Number [facility] [address] [place] [address] * (ABNORMAL) CBC W/O Differential (09/13/2025 3:24 PM EDT) WBC Count 6.06 3.70 - 10.30 10*3/uL LAB HEMATOLOGY METHOD 09/13/2025 5:21 PM EDT [facility] RBC Count 3.23(L) 3.90 - 5.20 10*6/uL LAB HEMATOLOGY METHOD 09/13/2025 5:21 PM EDT [facility] HGB 8.9(L) 11.2 - 15.7 g/dL LAB HEMATOLOGY METHOD 09/13/2025 5:21 PM EDT [facility] HCT 30.8(L) 34.0 - 45.0 % LAB HEMATOLOGY METHOD 09/13/2025 5:21 PM EDT [facility] Platelet Count 270 155 - 369 10*3/uL LAB HEMATOLOGY METHOD 09/13/2025 5:21 PM EDT [facility] MCV 95 79 - 98 fL LAB HEMATOLOGY METHOD 09/13/2025 5:21 PM EDT [facility] MCH 27.6 26.0 - 32.0 pg LAB HEMATOLOGY METHOD 09/13/2025 5:21 PM EDT [facility] MCHC 28.9(L) 30.7 - 35.5 g/dL LAB HEMATOLOGY METHOD 09/13/2025 5:21 PM EDT [facility] RDW 15.5(H) 11.5 - 14.5 % LAB HEMATOLOGY METHOD 09/13/2025 5:21 PM EDT [facility] MPV 9.2 8.8 - 12.5 fL LAB HEMATOLOGY METHOD 09/13/2025 5:21 PM EDT [facility] nRBC 0.0 <=0.0 per 100 WBCs LAB HEMATOLOGY METHOD 09/13/2025 5:21 PM EDT [facility] Blood Venous blood specimen / Unknown Venipuncture / Unknown 09/13/2025 3:24 PM EDT 09/13/2025 3:24 PM EDT us Enmanuel Castillo MD LAB BLOOD ORDERABLES Final Re sult [facility] [address] [place] [address] * (ABNORMAL) Ferritin (09/13/2025 3:24 PM EDT) Ferritin, Serum 701(H) 13 - 150 ng/mL 09/13/2025 6:12 PM EDT [facility] Blood Venous blood specimen / Unknown Venipuncture / Unknown 09/13/2025 3:24 PM EDT 09/13/2025 3:24 PM EDT us Enmanuel Castillo MD LAB BLOOD ORDERABLES Final Re sult [facility] [address] [place] [address] * (ABNORMAL) Renal Function Panel, Plasma (09/13/2025 3:24 PM EDT) Pathologist [facility] Glucose, Plasma 93 74 - 99 mg/dL 09/13/2025 5:53 PM EDT [facility] BUN, Plasma 37(H) 8 - 23 mg/dL 09/13/2025 5:53 PM EDT [facility] Creatinine, Plasma 2.90(H) 0.60 - 1.10 mg/dL 09/13/2025 5:53 PM EDT [facility] BUN/Creatinine Ratio 13 09/13/2025 5:53 PM EDT [facility] Sodium, Plasma 136 136 - 145 mmol/L 09/13/2025 5:53 PM EDT [facility] Potassium, Plasma 4.5 3.6 - 4.9 mmol/L 09/13/2025 5:53 PM EDT [facility] Chloride, Plasma 99 97 - 107 mmol/L 09/13/2025 5:53 PM EDT [facility] CO2, Plasma 22 22 - 29 mmol/L 09/13/2025 5:53 PM EDT [facility] Anion Gap 15 6 - 16 mmol/L 09/13/2025 5:53 PM EDT [facility] Total Calcium, Plasma 8.9 8.9 - 10.2 mg/dL 09/13/2025 5:53 PM EDT [facility] Phosphorus, Plasma 4.5 2.5 - 4.5 mg/dL 09/13/2025 5:53 PM EDT [facility] Albumin, Plasma 4.1 3.5 - 5.2 g/dL 09/13/2025 5:53 PM EDT [facility] eGFRcr 16.3 mL/min/1.7 3m*2 09/13/2025 5:53 PM EDT [facility] Comment:Reported eGFRcr in m L/min/1.73m2 is based the CKD-EPI 2020 equation that does not use a race coefficient. Blood Venous blood specimen / Unknown Venipuncture / Unknown 09/13/2025 3:24 PM EDT 09/13/2025 3:24 PM EDT us Enmanuel Castillo MD LAB BLOOD ORDERABLES Final Re sult [facility] [address] [place] [address] * Dexa Bone Density (01/09/2024 4:11 PM EST) Anatomical Region Laterality Modality L-spine Radiographic Jacqui ging Narrative 01/11/2024 2:27 PM EST [facility] [address] [place] [address] DXA Bone Densitometry Report: [DAY/DATE] BMD test performed using the [employer] DXA System (analysis version: 14.10) manufactured by [employer]. REFERRING PROVIDER: Dr. Castillo, Enmanuel Heller MD [...] Maintenance Insurance [place] MED[place] Care Teams Public Relations Manager Relationship Specialty Start Date End Date Liliana Gar APRN [address] [place] [address] PCP - General 02/23/25
[2025-10-08 09:14] LABS: Hematocrit 29.5 % (37.0-47.0); Hemoglobin 9.0 g/dL (12.2-16.2); Immature Granulocytes % 0.5 %; Mean Corpuscular HGB Conc 30.5 g/dL (31.8-35.4); Mean Corpuscular Hemoglobin 27.6 pg (27.0-31.2); Mean Corpuscular Volume 90.5 fl (81-99); Nucleated Red Blood Cells % 0 %; Platelet Count 223 K/mm3 (142-424); Red Blood Count 3.26 M/mm3 (4.20-5.40); Red Cell Distribution Width-SD 47.4 fL; White Blood Count 6.6 K/mm3 (4.8-10.8)
== END 2025-10-08 23:59 | disposition home or self-care (01) ==
LOC: LAB 08:58
PROVIDERS: PCP Nurse Practitioner Family; Visit Provider Internal Medicine Nephrology
DX: N18.4 Chronic kidney disease, stage 4 (severe) (principal); D63.1 Anemia in chronic kidney disease
CPT/HCPCS: 36415; 85025

== ENCOUNTER 2025-11-16 15:59 | Outpatient (CLI) | payer MEDICARE, SELFPAY ==
--- OUTSIDE RECORDS SUMMARY | 2024-06-12 07:30 | XMS_ITS ---
Author Organization [facility] Address [address] [place] [address] Care Team Providers Care Process Artist Name Role Phone Westley Avalos Primary Care Provider WESTLEY Avalos APRN Unavailable Unavailable Encounters Encounter Location Date Provider Diagnosis [place] [address] [address] 06/12/2024 Westley Avalos Plan Of Treatment No Information Progress Notes * YESYMarbellaChacha ADOB:[birth year] (75 yo F)Acc No.[id number]:06/12/2024 Progress Notes Patient: Chacha MONDRAGON Provider: Phu Avalos APRN :1950 A ge:74 Y S ex:Female Date:06/12/2024 [id number] Subjective: * Chief Complaints: * * Medical History: Objective: * Vitals: Assessment: Plan: * Treatment: * * Electronic signature of Gaby Avalos APRN on 11/16/2025 at 04:03 PM EST Sign off status: Pending * Provider: Phu Avalos APRN Date: 0 06/12/2024 Generated for Printi ng/Faxing/eTransmitting on: 1 01/17/2025 04:03 PM EST
--- OUTSIDE RECORDS SUMMARY | 2025-03-06 16:30 | XMS_ITS ---
Author Organization 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 Role Phone Liliana Avalos Primary Care Provider LILIANA Avalos APRN Unavailable Unavailable Migration, Provider Unavailable Unavailable Allergies Allergen (clinical drug ingredient) Drug/Non Drug Allergy documented on EMR Reaction Allergy Type Onset Date Status IV DYES (uncoded) Unknown Allergy Ac tive Latex LATEX (uncoded) Unknown Allergy Acti ve angiotensin-converting enzyme inhibitor (FN) ANDREWS Inhibitors Unknown Drug Allergy Acti ve morphine Morphine Unknown Drug Allergy [facility] Encounter Medications Medication SIG (Take, Route, Frequency, Duration) Notes Start Date End Date Status Hydroxychloroquine Sulfate 200 MG 1 tab(s) orally twice a day; Duration: 30 day(s) Active Flonase Allergy Relief 50 MCG/ACT 2 sprays intranasally once a day prn Active Ondansetron 4 MG 1 tab(s) orally every 6 hours PRN; Duration: 30 days 06/26/2024 Active Xanax 0.25 MG 1 tab(s) orally every 8 hours prn; Duration: 30 days 04/21/2024 Active NURTEC ODT 75 MG 1 TAB(S) ORALLY EVERY OTHER DAY; Duration: 30 DAYS *Please review for potential replacement for e-prescription and drug interaction check* Active Metamucil 525 MG 2 CAPS ORALLY TWICE A DAY *Please review and pick correct strength-formulat ion from Medispan options. If intended option is not shown, discontinue and re-order from Quick Search* Active Doxepin HCl 10 MG 3tabs orally at bedtime Active Dicyclomine HCl 10 MG 1 cap(s) orally twice daily; Duration: 90 days Active Levothyroxine Sodium 150 MCG 1 tab(s) orally once a day; Duration: 90 days Active Mycophenolate Mofetil 500 MG 1 tab(s) orally 2 times a day Active Acetaminophen 500 MG 2 tab(s) orally every 6 hours Active Nystatin 968916 UNIT/GM 1 truong applied topically 3 times a day Active PROBIOTIC FORMULA (BACILLUS COAGULANS) - 1 CAP(S) ORALLY ONCE A DAY *Please review for potential replacement for e-prescription and drug interaction check* Active Fiber Choice 1.5 GM 2 tab(s) chewed 2 times a day Active Imitrex 100 MG 1 tab(s) orally once at onset of migraine; Duration: 90 days Active Sertraline HCl 25 MG 1 tab(s) orally once a day; Duration: 90 days Active Omeprazole 40 MG 1 cap(s) orally once a day; Duration: 90 days Active Sodium Bicarbonate 650 MG 2 tabs orally 3 times a day; Duration: 90 days Active busPIRone HCl 10 MG 1 tab(s) orally 2 times a day; Duration: 90 days Active Mirtazapine 15 MG 1 tab(s) orally once a day; Duration: 90 days Active Cefdinir 300 MG 1 cap(s) orally once a day; Duration: 7 days 06/29/2024 Active Encounters Encounter Location Date Provider Diagnosis [facility] [address] [facility] [address] [place] [address] 03/06/2025 Provider Migration Recurrent UTI N39.0 Assessments Encounter Date Diagnosis (ICD Code) Assessment Notes Treatment Notes Treatment Clinical Notes Section Notes 03/06/2025 Recurrent UTI (ICD-10 - N39.0) Plan Of Treatment Medication Medication Name Sig Start Date Stop Date Notes Ondansetron 4 MG 1 tab(s) orally every 6 hours PRN; Duration: 30 days 06/26/2024 NURTEC ODT 75 MG 1 TAB(S) ORALLY EVERY OTHER DAY; Duration: 30 DAYS *Please review for potential replacement for e-prescription and drug interaction check* Dicyclomine HCl 10 MG 1 cap(s) orally twice daily; Duration: 90 days Levothyroxine Sodium 150 MCG 1 tab(s) orally once a day; Duration: 90 days Imitrex 100 MG 1 tab(s) orally once at onset of migraine; Duration: 90 days Sertraline HCl 25 MG 1 tab(s) orally once a day; Duration: 90 days Omeprazole 40 MG 1 cap(s) orally once a day; Duration: 90 days Sodium Bicarbonate 650 MG 2 tabs orally 3 times a day; Duration: 90 days busPIRone HCl 10 MG 1 tab(s) orally 2 times a day; Duration: 90 days Mirtazapine 15 MG 1 tab(s) orally once a day; Duration: 90 days Cefdinir 300 MG 1 cap(s) orally once a day; Duration: 7 days 06/29/2024 Progress Notes * Chacha HAYWARD ADOB:[birth year] (75 yo F)Acc No.[id number]:03/06/2025 Patient: Chacha MONDRAGON Provider: Yobany Mancera :1950 A ge:75 Y S ex:Female Date:03/06/2025 [id number] Pcp:Liliana Avalos Subjective: * Chief Complaints: * [facility] * Medical History: * Medications: T aking Nystatin [id number] UNIT/GM Powder 1 truong applied topically 3 times a day , Taking Acetaminophen 500 MG Tablet 2 tab(s) orally every 6 hours , Taking Fiber Choice 1.5 GM Tablet Chewable 2 tab(s) chewed 2 times a day , Taking PROBIOTIC FORMULA (BACILLUS COAGULANS) - CAPSULE 1 CAP(S) ORALLY ONCE A DAY , Notes to Pharmacist: *Please review for potential replacement for e-prescription and drug interaction check*, Taking Mycophenolate Mofetil 500 MG Tablet 1 tab(s) orally 2 times a day , Taking Doxepin HCl 10 MG Capsule 3tabs orally at bedtime , Taking Metamucil 525 MG CAPSULE 2 CAPS ORALLY TWICE A DAY , Notes to Pharmacist: *Please review and pick correct strength-formulation from Medispan options. If intended option is not shown, discontinue and re-order from Quick Search*, Taking Flonase Allergy Relief 50 MCG/ACT Suspension 2 sprays intranasally once a day , Notes to Pharmacist: prn, Taking Hydroxychloroquine Sulfate 200 MG Tablet 1 tab(s) orally twice a day , Taking Xanax 0.25 MG Tablet 1 tab(s) orally every 8 hours prn * Allergies: L ATEX, Morphine, ANDREWS Inhibitors, IV DYES. Objective: * Vitals: Assessment: * Assessment: 1. R ecurrent UTI - N39.0 Plan: * Treatment: 2. O thers Start Cefdinir Capsule, 300 MG, 1 cap(s), orally, once a day, 7 days, 7 Capsule, Refills 0; S tart NURTEC ODT TABLET, DISINTEGRATING, 75 MG, 1 TAB(S), ORALLY, EVERY OTHER DAY, 30 DAYS, 16, Refills 5, Notes to Pharmacist: *Please review for potential replacement for e-prescription and drug interaction check*; R efill Dicyclomine HCl Capsule, 10 MG, 1 cap(s), orally, twice daily, 90 days, 180, Refills 1; S tart Levothyroxine Sodium Tablet, 150 MCG, 1 tab(s), orally, once a day, 90 days, 90 Tablet, Refills 1; S tart Sodium Bicarbonate Tablet, 650 MG, 2 tabs, orally, 3 times a day, 90 days, 540 Tablet, Refills 2; S tart Imitrex Tablet, 100 MG, 1 tab(s), orally, once at onset of migraine, 90 days, 27, Refills 0; S tart Sertraline HCl Tablet, 25 MG, 1 tab(s), orally, once a day, 90 days, 90 Tablet, Refills 1; S tart Omeprazole Capsule Delayed Release, 40 MG, 1 cap(s), orally, once a day, 90 days, 90 Capsule, Refills 1; S tart Mirtazapine Tablet, 15 MG, 1 tab(s), orally, once a day, 90 days, 90 Tablet, Refills 1; S tart busPIRone HCl Tablet, 10 MG, 1 tab(s), orally, 2 times a day, 90 days, 180 Tablet, Refills 2. * * Electronic signature of Prov ider Migration on 11/16/2025 at 04:03 PM EST Sign off status: Pending * Provider: Yobany valderrama Migration Date: 0 03/06/2025 Generated for Timur lr/Ronda/Toby on: 1 01/17/2025 04:03 PM EST
--- OUTSIDE RECORDS SUMMARY | 2025-10-15 06:30 | XMS_ITS ---
Author Organization [facility] D GINNY Address [address] [place] [address] Care Team Providers Care Pathologist Name Role Phone Liliana Avalos Primary Care Provider LILIANA Avalos APRN Unavailable Unavailable Allergies Allergen (clinical drug ingredient) Drug/Non Drug Allergy documented on EMR Reaction Allergy Type Onset Date Status IV DYES (uncoded) Unknown Allergy Ac tive Latex LATEX (uncoded) Unknown Allergy Acti ve angiotensin-converting enzyme inhibitor (FN) ANDREWS Inhibitors Unknown Drug Allergy Acti ve morphine Morphine Unknown Drug Allergy Active Results Component Value Reference Range Notes COMPREHENSIVE METABOLIC PANE L (72469) Reviewed date:10/18/2025 10:40:38 AM Interpretation: Performing Lab:CB, [facility] [address], [facility] [id number] Olivier Albert Notes/Report: NON-FASTING; NON-FASTING; NON-FASTING GLUCOSE 88 65-99 mg/dL Fasting reference interval UREA NITROGEN (BUN) 54 7-25 mg/dL CREATININE 3.09 0.60-1.00 mg/dL EGFR 15 > OR = 60 mL/min/1.73m2 BUN/CREATININE RATIO 17 6-22 (calc) SODIUM 136 135-146 mmol/L POTASSIUM 5.1 3.5-5.3 mmol/L CHLORIDE 102 98-110 mmol/L CARBON DIOXIDE 20 20-32 mmol/L CALCIUM 9.0 8.6-10.4 mg/dL PROTEIN, TOTAL 7.0 6.1-8.1 g/dL ALBUMIN 4.3 3.6-5.1 g/dL GLOBULIN 2.7 1.9-3.7 g/dL (calc) ALBUMIN/GLOBULIN RATIO 1.6 1.0-2.5 (calc) BILIRUBIN, TOTAL 0.3 0.2-1.2 mg/dL ALKALINE PHOSPHATASE 102 37-153 U/L AST 14 10-35 U/L ALT 7 6-29 U/L CBC (INCLUDES DIFF/PLT) (639 9) Reviewed date:10/18/2025 10:40:38 AM Interpretation: Performing Lab:CB, [facility] [address], [employer] [id number] Olivier Ablert Notes/Report: NON-FASTING; NON-FASTING; NON-FASTING WHITE BLOOD CELL COUNT 6.4 3.8-10.8 Thousand/ uL RED BLOOD CELL COUNT 3.51 3.80-5.10 Million/uL HEMOGLOBIN 9.7 11.7-15.5 g/dL HEMATOCRIT 31.0 35.0-45.0 % MCV 88.3 80.0-100.0 fL MCH 27.6 27.0-33.0 pg MCHC 31.3 32.0-36.0 g/dL For adults, a slight decrease in the calculated MCHC value (in the range of 30 to 32 g/dL) is most likely not clinically significant; however, it should be interpreted with caution in correlation with other red cell parameters and the patient's clinical condition. RDW 14.1 11.0-15.0 % PLATELET COUNT 326 140-400 Thousand/uL MPV 8.9 7.5-12.5 fL ABSOLUTE NEUTROPHILS 4870 4963-1610 cells/uL ABSOLUTE LYMPHOCYTES 4381 302-1852 cells/uL ABSOLUTE MONOCYTES 410 200-950 cells/uL ABSOLUTE EOSINOPHILS 70 15-500 cells/uL ABSOLUTE BASOPHILS 32 0-200 cells/uL NEUTROPHILS 76.1 LYMPHOCYTES 15.9 MONOCYTES 6.4 EOSINOPHILS 1.1 BASOPHILS 0.5 TSH (899) Reviewed date:10/18/2025 10:40:38 AM Interpretation: Performing Lab:JOSÉ LUIS, [facility] [address], [employer] [facility] [id number] Olivier Albert Notes/Report: NON-FASTING; NON-FASTING; NON-FASTING TSH 0.36 0.40-4.50 mIU/L REASON FOR VISIT med check, refill on albuterol neb solution Medications Medication SIG (Take, Route, Frequency, Duration) Notes Start Date End Date Status Albuterol Sulfate (2.5 MG/3ML) 0.083% 3 mL as needed Inhalation twice a day; Duration: 90 days As needed 10/15/2025 Active Fluticasone Propionate 50 MCG/ACT 1 spray in each nostril Nasally Twice a day; Duration: 90 days Active Levothyroxine Sodium 137 MCG TAKE 1 TABLET EVERY MORNING ON AN EMPTY STOMACH; Duration: 90 Active busPIRone HCl 10 MG TAKE 1 TABLET TWICE DAILY; Duration: 90 Active Cetirizine HCl 10 MG 1 tablet Orally Once a day; Duration: 90 days 05/18/2025 Active Xanax 0.25 MG 1 tab(s) orally daily; Duration: 30 days 05/17/2025 Active Mirtazapine 15 MG TAKE 1 TABLET EVERY DAY; Duration: 90 Active Sertraline HCl 25 MG 1 tab(s) orally once a day; Duration: 90 days Active Sodium Bicarbonate 650 MG TAKE 2 TABLETS THREE TIMES DAILY; Duration: 90 days Active Imitrex 100 MG 1 tab(s) orally once at onset of migraine; Duration: 90 days Active Dicyclomine HCl 10 MG 1 cap(s) orally twice daily; Duration: 90 days Active Doxepin HCl 10 MG 2 TABS orally at bedtime as needed Active NURTEC ODT 75 MG 1 TAB(S) ORALLY EVERY OTHER DAY; Duration: 30 DAYS *Please review for potential replacement for e-prescription and drug interaction check* Active Hydroxychloroquine Sulfate 300 MG 1 tab(s) orally twice a day; Duration: 30 days Active Cholecalciferol 50 MCG (2000 UT) 1 capsule Orally Once a day Active NIFEdipine 10 MG 1 capsule as needed Orally every 8 hrs Active Fiber Choice 1.5 GM 2 tab(s) chewed 2 times a day Active Acetaminophen 500 MG 2 tab(s) orally every 6 hours Active Mycophenolate Mofetil 500 MG 1 tab(s) orally 2 times a day Active Immunizations Vaccine Route Administration Date Status Comme nts Fluzone High Dose IM Intramuscular 10/15/2025 Administered Problems Problem Type SNOMED Code ICD Code Onset Dates Problem Status W/U Status Risk Notes Problem Chronic anemia (511343297) Chronic anemia (D64.9) Active confirmed Vital Signs Temperature 97.9 degrees Fahrenheit 10/15/20 25 Blood pressure systolic 126 mm Hg 10/15/20 25 Blood pressure diastolic 80 mm Hg 025 Heart Rate 82 /min 10/15/2025 Height 61 in 10/15/2025 Weight 121 lbs 10/15/2025 BMI 22.86 kg/m2 10/15/2025 Encounters Encounter Location Date Provider Diagnosis 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 ; Arthritis involving multiple sites M12.9 ; Moderate episode of recurrent major depressive disorder F33.1 ; Gastroesophageal reflux disease without esophagitis K21.9 ; Irritable bowel syndrome with diarrhea K58.0 ; Brain lesion G93.9 ; Seasonal allergies J30.2 ; ANGE (generalized anxiety disorder) F41.1 ; Essential hypertension I10 ; Chronic anemia D64.9 ; BMI 22.0-22.9, adult Z68.22 ; Shortness of breath R06.02 and Encounter for immunization Z23 Assessments Encounter Date Diagnosis (ICD Code) Assessment Notes Treatment Notes Treatment Clinical Notes Section Notes 10/15/2025 Hypothyroidism (acquired) (ICD-10 - E03.9) On synthroid. 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 No recent changes. Previously followed by Hospice, remains palliative care 10/15/2025 Arthritis involving multiple sites (ICD-10 - M12.9) At baseline 10/15/2025 Moderate episode of recurrent major depressive disorder (ICD-10 - F33.1) Stable on SSRI. No changes made today 10/15/2025 Gastroesophageal reflux disease without esophagitis (ICD-10 - K21.9) Well controlled 10/15/2025 Irritable bowel syndrome with diarrhea (ICD-10 - K58.0) Stable at baseline on bentyl 10/15/2025 Brain lesion (ICD-10 - G93.9) Declines further imaging or FU at this time. Seen by neuro in the past. 10/15/2025 Seasonal allergies (ICD-10 - J30.2) Continue antihistamine and flonase 10/15/2025 ANGE (generalized anxiety disorder) (ICD-10 - F41.1) Well controlled on current regimen 10/15/2025 Essential hypertension (ICD-10 - I10) Blood pressure at goal 10/15/2025 Chronic anemia (ICD-10 - D64.9) CBC drawn today 10/15/2025 BMI 22.0-22.9, adult (ICD-10 - Z68.22) BMI is stable and acceptable 10/15/2025 Shortness of breath (ICD-10 - R06.02) Trial of albuterol sent. Not sure this will help her SOA, but given h/o tobacco use years ago will trial to see if symptoms improve 10/15/2025 Encounter for immunization (ICD-10 - Z23) Immunizations updated today 10/15/2025 Other Plan Of Treatment Medication Medication Name Sig Start Date Stop Date Notes Albuterol Sulfate (2.5 MG/3M L) 0.083% 3 mL as needed Inhalation twice a day; Duration: 90 days 10/15/2025 Fluticasone Propionate 50 MCG/ACT 1 spray in each nostril Nasally Twice a day; Duration: 90 days Treatment Notes Assessment Notes Hypothyroidism (acquired) On synthroid. Will check tsh and treat as indicated Lupus nephritis Following with rheum atology and nephrology. No recent changes. Previously followed by Hospice, remains palliative care Arthritis involving multiple sites [facility] Moderate episode of recurren t major depressive disorder Stable on SSRI. No changes made today Gastroesophageal reflux dise ase without esophagitis Well controlled Irritable bowel syndrome with diarrhea S table at baseline on bentyl Brain lesion Declines further stefanie ging or FU at this time. Seen by neuro in the past. Seasonal allergies Continue antihistami ne and flonase ANGE (generalized anxiety disorder) Well controlled on current regimen Essential hypertension Blood pressure at goal Chronic anemia CBC drawn today BMI 22.0-22.9, adult BMI is stable and a cceptable Shortness of breath Trial of albuterol s ent. Not sure this will help her SOA, but given h/o tobacco use years ago will trial to see if symptoms improve Encounter for immunization Immunizations updated today Next Appt Details Follow Up: 4 Months,prn, [place] son: Progress Notes * Chacha HAYWARD ADOB:[birth year] (75 yo F)Acc No.[id number]:10/15/2025 Progress Notes Patient: Chacha MONDRAGON Provider: Phu Avalos APRN :1950 A ge:75 Y S ex:Female Date:10/15/2025 Address:[facility] [place], [id number] Pcp:Winston Webster Subjective: * Chief Complaints: * 1 . Med check. 2. Refill on albuterol neb solution. * HPI: g en: 75 yr old female with multiple chronic medical conditions presents and annual PAF exam Migraines/brain lesion- uses nurtec and imitrex prn which works well. Seen neuro, serial scans unchanged. Does not want any further imaging Seasonal allergies- chronic PND, using flonase PRN, stopped antihistamine, not sure why. Hypothyroidism- on Synthroid Lupus nephritis- follows with nephrology, creatinine in May. Previously followed by Hospice, creatinine at that time was over 4. Uses hover round when she leaves the house. Has home health to assist with bathing, housework and meals. SOA with exertion seems a little worse. Bought a nebulizer and would like to see if that helps. Depression/anxiety/Insomnia- stable on current regimen. Anxiety well controlled. Uses xanax rarely. No sleep issues. GERD- well controlled on PPI Anemia- chronic, due for CBC today,, on PPI, iron, likely related to multiple factors- CKD, HIEU, multiple chronic disease states HTN- at goal. Good control on home log and at other appointments. D enies CP, SOA, dizziness IBS- Well controlled on Bentyl, rarely occurs, depend on what she eats, no blood or mucous. PVM- Mammogram last year normal, does not want anymore. Declines c-scope. Immunizations updated today. * ROS: A LLERGY: no R unny nose. n o S cratchy throat. ? F UNCTIONAL STATUS: ADLS I mpaired ADL/IADL - home health, hover round, family assists in care. R ESPIRATORY: Shortness of breath y es, w orse with exertion. ? C ARDIOLOGY: no C hest pain. n [...] N EUROLOGY: Headache y es. n o M bryan loss. n o D izziness. P SYCHOLOGY: Depression y es, i mproved on sertraline. n o S leep disturbances. n o S uicidal ideation. A nxiety y es, w ell controlled.? U ROLOGY: no D ifficulty urinating. n o B lood in urine. n o F requent urination. U rinary incontinence y es. * Medical History: Sherry REED-diagnosed 5 years ago-has lupus nephritis, rheumatoid arthritis-follows [...] UTI 06/2021, UTI , blood work 05/2022, [place] for 10 day 06/2022. * Family History: [...] aunt: alive, breast cancer. S iblings: alive. Arron murdock: alive, colon polyps- + cancer cells. 1 [...] has since . One child lives in [place], another daughter lives in [place]. Lives in [facility] apartment, has lots of problems with mobility [...] once at onset of migraine , Taking Sodium Bicarbonate 650 MG Tablet [...] EVERY MORNING ON AN EMPTY STOMACH , Taking busPIRone HCl 10 MG Tablet TAKE 1 TABLET TWICE DAILY , Discontinued Cefdinir 300 MG Capsule 300 mg Orally daily , Medication List reviewed and reconciled with the patient * Allergies: L ATEX, Morphine, ANDREWS Inhibitors, IV DYES. Objective: * Vitals: N urse: dw, Pain: 0, Temp: 97.9, RR: 20, HR: 82, BP: 126/80, Ht: 61, Wt: 121, BMI:22.86. * Examination: G eneral Examination: General P leasant and Cooperative, NAD on RA, F rail,.? Oral cavity: M oist membranes. Chest: n ormal shape and expansion. Heart: R egular Rate and Rhythm, no murmur, rubs or gallops. HEENT: u nremarkable . Lungs: c lear to auscultation,. Abdomen: s oft, NT/ND, BS present. Neurologic Exam: A lert and oriented x 3, 3/3 word recall.? Skin: w ithout acute rashes. Peripheral pulses: n ormal (2+) bilaterally. Extremities: t race lower extremity edema, mildly kyphotic posture, LLE strength 3/5, LUE 3/5, RLE 4/5, RUE 4/5, gait is slow and cautious. neck s upple,, no thyromegaly,, no lymphadenopathy,. Psych N ormal Mood/Affect. Assessment: * Assessment: 1. H ypothyroidism (acquired) - E03.9 (Primary) 2 . L upus nephritis - M32.14 3 . A rthritis involving multiple sites - M12.9 4 . M oderate episode of recurrent major depressive disorder - F33.1 5 . G astroesophageal reflux disease without esophagitis - K21.9 6 . I rritable bowel syndrome with diarrhea - K58.0 7 . B rain lesion - G93.9 8 . S easonal allergies - J30.2 9 . G AD (generalized anxiety disorder) - F41.1 1 0. E ssential hypertension - I10 1 1. C hronic anemia - D64.9 ?12. B RI 22.0-22.9, adult - Z68.22 1 3. S hortness of breath - R06.02? 14. E ncounter for immunization - Z23 Plan: * Treatment: Value Reference Range T SH 0.36 L 0.40-4.50 - mIU/L * Liliana Avalos 10/17/20 09:37:31 AM EST > labs look good at baseline Dustin Molina 10/18/2025 10:40:16 AM EST > Kellee daughter notifiedThis lab was reviewed by Dustin Molina on 10/18/2025 at 10:40 AM EST Notes: On synthroid. Will check tsh and treat as indicated??2.?Lupus nephritis?LAB: COMPREHENSIVE METABOLIC PANEL (23022)* Value Reference Range G LUCOSE 88 65-99 - mg/dL * U MACK NITROGEN (BUN) 54 H 7-25 - mg/dL * C REATININE 3.09 H 0.60-1.00 - mg/dL * B UN/CREATININE RATIO 17 6-22 - (calc) * S ODIUM 136 135-146 - mmol/L * P OTASSIUM 5.1 3.5-5.3 - mmol/L * C HLORIDE 102 98-110 - mmol/L * C ARBON DIOXIDE 20 20-32 - mmol/L * C ALCIUM 9.0 8.6-10.4 - mg/dL * P ROTEIN, TOTAL 7.0 6.1-8.1 - g/dL * A LBUMIN 4.3 3.6-5.1 - g/dL * G LOBULIN 2.7 1.9-3.7 - g/dL (calc ) * A LBUMIN/GLOBULIN RATIO 1.6 1.0-2.5 - (calc) * B ILIRUBIN, TOTAL 0.3 0.2-1.2 - mg/dL * A LKALINE PHOSPHATASE 102 37-153 - U/L * A ST 14 10-35 - U/L * A LT 7 6-29 - U/L * E GFR 15 L > OR = 60 - mL/min/1 .73m2 * Liliana Avalos 10/17/20 09:37:31 AM EST > labs look good at baseline Dustin Molina 10/18/2025 10:40:16 AM EST > Kellee daughter Farrah lab was reviewed by Dustin Molina on 10/18/2025 at 10:40 AM EST Notes: Following with rheumatology and nephrology. No recent changes. Previously followed by Hospice, remains palliative care??3.?Arthritis involving multiple sites? Notes: At baseline??4.?Moderate episode of recurrent major depressive disorder? Notes: Stable on SSRI. No changes made today??5.?Gastroesophageal reflux disease without esophagitis? Notes: Well controlled??6.?Irritable bowel syndrome with diarrhea? Notes: Stable at baseline on bentyl??7.?Brain lesion? Notes: Declines further imaging or FU at this time. Seen by neuro in the past.?? 8.?Seasonal allergies? Refill Fluticasone Propionate Suspension, 50 MCG/ACT, 1 spray in each nostril, Nasally, Twice a day, 90 days, 3, Refills 3.?? Notes: Continue antihistamine and flonase??9.?ANGE (generalized anxiety disorder) ? Notes: Well controlled on current regimen??10.?Essential hypertension? Notes: Blood pressure at goal??11.?Chronic anemia?LAB: CBC (INCLUDES DIFF/PLT) (6399)* Value Reference Range W MIRTA BLOOD CELL COUNT 6.4 3.8-10.8 - Thousan d/uL * R ED BLOOD CELL COUNT 3.51 L 3.80-5.10 - Million/ uL * H EMOGLOBIN 9.7 L 11.7-15.5 - g/dL * H EMATOCRIT 31.0 L 35.0-45.0 - % * M CV 88.3 80.0-100.0 - fL * M CH 27.6 27.0-33.0 - pg * M CHC 31.3 L 32.0-36.0 - g/dL * R DW 14.1 11.0-15.0 - % * P LATELET COUNT 326 140-400 - Thousand/u L * N EUTROPHILS 76.1 - % * A BSOLUTE NEUTROPHILS 4870 6358-3012 - cells/uL * L YMPHOCYTES 15.9 - % * A BSOLUTE LYMPHOCYTES 2248 736-3163 - cells/uL * M ONOCYTES 6.4 - % * A BSOLUTE MONOCYTES 410 200-950 - cells/uL * E OSINOPHILS 1.1 - % * A BSOLUTE EOSINOPHILS 70 15-500 - cells/uL * B ASOPHILS 0.5 - % * A BSOLUTE BASOPHILS 32 0-200 - cells/uL * M PV 8.9 7.5-12.5 - fL * Liliana Avalos 10/17/20 09:37:31 AM EST > labs look good at baseline Dustin Molina 10/18/2025 10:40:16 AM EST > Kellee daughter notifiedThis lab was reviewed by Dustin Molina on 10/18/2025 at 10:40 AM EST Notes: CBC drawn today??12.?BMI 22.0-22.9, adult? Notes: BMI is stable and acceptable??13.?Shortness of breath? Start Albuterol Sulfate Nebulization Solution, (2.5 MG/3ML) 0.083%, 3 mL as needed, Inhalation, twice a day As needed, 90 days, 180, Refills 3.?? Notes: Trial of albuterol sent. Not sure this will help her SOA, but given h/o tobacco use years ago will trial to see if symptoms improve??14.?Encounter for immunization? Notes: Immunizations updated today?? * Immunizations: Fluzone High Dose : 0.7 mL (Route: Intramuscular) given by BLANCA Meeks on Left Deltoid * Procedure Codes: 9 0662 Influenza High Dose Vaccine >65 Years Old, Units: 1.40 , G0008 ADMINISTRATION-FLU VACCINE MEDICARE ONLY, 37504 HEALTH RISK CADJS-VA-HGDOSAU, G8420 BMI documented as normal, no follow up required., G9717 DOC PT HAS ACTIV DX DEPR/BIPOLR D/O, G9903 Pt scrn tbco id as non user, 1036F TOBACCO NON-USER, G8752 Most recent systolic blood pressure < 140mmhg, G8754 Most recent diastolic blood pressure < 90mmhg, G9744 PATIENT NOT ELIG D/T ACTIVE DX HTN * Follow Up: 4 Months,prn * * Sign off status: Completed true * Provider: Phu Avaols APRN Date: 12/15/2024 Generated for Timur lr/Ronda/Toby on: 01/17/2025 04:02 PM EST History and Physical Notes * Examination Category [...] Neurologic Exam: Alert and oriented x 3, 3/3 word recall Oral cavity: Moist membranes Peripheral pulses: normal (2+) bilatera lly Chest: normal shape and exp ansion neck supple,, no thyromeg tacos,, no lymphadenopathy, General Pleasant and Coopera tive, NAD on RA, Frail, Psych Normal Mood/Affect
--- OUTSIDE RECORDS SUMMARY | 2025-11-15 11:12 | XMS_ITS ---
Author Organization [facility] D GINNY Address [address] [place] [address] Care Team Providers Care Ergonomics Engineer Name Role Phone Westley Avalos Primary Care Provider WESTLEY Avalos APRN Unavailable Unavailable REASON FOR VISIT Needs call back from MD Encounters Encounter Location Date Provider Diagnosis [address] [address] 11/15/2025 Westley Robbie Pre-syncope R55 and History of recurrent UTIs Z87.440 Assessments Encounter Date Diagnosis (ICD Code) Assessment Notes Treatment Notes Treatment Clinical Notes Section Notes 11/15/2025 Pre-syncope (ICD-10 - R55) 11/15/2025 History of recurrent UTIs (ICD-10 - Z87.440) Plan Of Treatment Pending Test Test Name Order Date Holter Monitor, 48 hour 11/15/2025 M-Urinalysis and Microscopic 11/15/2025 M-Urine Culture 11/15/2025 Progress Notes * YESY Chacha ADOB:[birth year] (75 yo F)Acc No.[id number]:11/15/2025 Patient: Chacha MONDRAGON :1950 A ge:75 Y S ex:Female Address:[facility] [place], [address] Subjective: * Chief Complaints: * N eeds call back from MD * Medical History: * Surgical History: * Hospitalization/Major Diagno stic Procedure: * Medications: Objective: * Vitals: * Physical Examination: Assessment: * Assessment: 1. P re-syncope - R55 (Primary) 2 . H istory of recurrent UTIs - Z87.440? Plan: * Treatment: 2.?History of recurrent UTIs?LAB: M-Urinalysis and Microscopic ?LAB: M-Urine Culture * Procedure Codes: * true * Date: Generated for Timur lr/Ronda/eTransmitting on: 01/17/2025 04:02 PM EST
--- OUTSIDE RECORDS SUMMARY | 2025-11-16 16:02 | XMS_ITS | Encounter Summary ---
Author Organization [facility] Address [address] [place] [address] Care Team Providers Care Engine Wiper Name Role Phone Winston Webster MD Primary Care Provider [phone] Liliana Gar APRN Primary Care Provider [phone] Encounter Details Date Type Department Care Team (Late st Contact Info) Description 06/12/2024 Orders Only External Location [address] [place] [address] Provider, External Social History Tobacco Use Types [...] Care Team (Late st Contact Info) Description 11/19/2025 9:45 AM EST Office Visit [facility] [address] [place] [address] Yareli Puga DO [address] [place] [address] 03/14/2026 1:20 PM EDT Office Visit [facility] Nephrology, [facility] Min[facility] Met[facility] [address] [facility], [address] [place] [address] documented as of this encounter Procedures Procedure [...] documented as of this encounter Care Teams Engine Wiper Relationship Specialty Start Date End Date Winston [place] MD [address] [facility] [address] [place] [address] PCP - General 04/14/21 02/22/25 Liliana Gar APRN [address] [place] [address] PCP - General 02/23/25 documented as of this encounter
--- OUTSIDE RECORDS SUMMARY | 2025-11-16 16:02 | XMS_ITS | Encounter Summary ---
Author Organization [facility] Address [address] [place] [address] Care Team Providers Care Sand Mixer Operator Name Role Phone Liliana Gar YURIY Primary Care Provider [phone] Reason for Referral * Consultation (Routine) - Closed Specialty Diagnoses / Procedures Referred By Gaby presley Referred To Contact Neurosurgery Diagnoses Brain mass Emilee Tejeda MD [address] [facility] [address] [place] [address] Phone: tel: fax: Referral ID Status Reason Start Date Expiration Date V isits Requested Visits Authorized [id number] Closed Specialty Services Required 02/26/2025 08/28/2026 1 1 Encounter Details Date Type Department Care Team (Late st Contact Info) Description 02/26/2025 Community [facility] [address] [place] [address] Emilee Tejeda MD [address] [place] [address] Brain mass (Primary Dx) Social History [...] Description 11/19/2025 9:45 AM EST Office Visit [facility] [address] [place] [address] Antic, Yareli, DO [address] [place] [address] 03/14/2026 1:20 PM EDT Office Visit [facility] Nephrology, Bone & Mineral Metabolism [address] [facility], [address] [place] [address] Scheduled Referrals Name Type Priority [...] documented as of this encounter Care Teams Sand Mixer Operator Relationship Specialty Start Date End Date Liliana Gar APRN [address] [facility] [address] [place] [address] PCP - General 02/23/25 documented as of this encounter
--- OUTSIDE RECORDS SUMMARY | 2025-11-16 16:02 | XMS_ITS | Clinical Summary ---
Author Organization [facility] Address [address] [place] [address] Care Team Providers Care Graduation Coach Name Role Phone Unavailable Primary Care Provider [...]
--- OUTSIDE RECORDS SUMMARY | 2025-11-16 16:03 | XMS_ITS | Encounter Summary ---
Author Organization [facility] Address [address] [place] [address] Care Team Providers Care Pediatric Cardiologist Name Role Phone Winston Webster MD Primary Care Provider [phone] Liliana Gar APRN Primary Care Provider [phone] Reason for Visit * Reason Comments Med Refill Encounter Details Date Type Department Care Team (Late Contact Info) Description 05/04/2022 Refill [facility] [address] [facility] [address] [place] [address] Enmanuel Castillo MD [address] [address] Social History Tobacco Use Types [...] Department Care Team (Late Contact Info) Description 11/19/2025 9:45 AM EST Office Visit [facility] [address], [address] [place] [address] Yareli Puga, DO [address] [place] [address] 03/14/2026 1:20 PM EDT Office Visit [facility] Nephrology, Bone & Mineral Metabolism [address] [facility], [address] [place] [address] documented as of this encounter Visit Diagnoses Not on filedocumented in this encounter Additional Health Concerns Assessment Noted Time A fall risk assessment has been complete d for the patient 11/28/2021 1:17 PM EST documented as of this encounter Care Teams Pediatric Cardiologist Relationship Specialty Start Date End Date Winston Webster MD [address] [place] [address] PCP - General 04/14/21 02/22/25 Liliana Gar, YURIY [address] [place] [address] PCP - General 02/23/25 documented as of this encounter
--- OUTSIDE RECORDS SUMMARY | 2025-11-16 16:03 | XMS_ITS | Encounter Summary ---
Author Organization [facility] Address [address] [place] [address] Care Team Providers Care Ict Developer Name Role Phone Winston Webster MD Primary Care Provider [phone] Liliana Gar APRN Primary Care Provider [phone] Reason for Visit * Reason Comments Med Refill Encounter Details Date Type Department Care Team ([facility] st Contact Info) Description 05/14/2024 Refill [facility] Nephrology, Bone & Mineral Metabolism [address] [facility], [address] [place] [address] Enmanuel Castlilo MD [address] [facility] [address] [place] [address] Social History Tobacco Use Types [...] could the lab orders be sent to [facility]? Best contact number and optimal time of day to reach caller: Pt [phone] Please call if orders sent so pt will know to go to the lab. Note: Please do not reply to this message. Follow-up communication and further actions as a result of this message need to be communicated with the patient directly, if the patient is not active onMyChart. If the patient is active on MyChart, they will receive notification of the communication/outcome via [employer]. * Telephone Encounter - No Hancock LPN - 05/14/2024 7:23 AM EDT Refilled 04/17/24 #180 tablets for 3 months supply documented in this encounter Plan of Treatment Upcoming Encounters Date Type Department Care Team (Late st Contact Info) Description 11/19/2025 9:45 AM EST Office Visit [facility] [address] [place] [address] Yareli Puga DO [address] [place] [address] 03/14/2026 1:20 PM EDT Office Visit [facility] Nephrology, Bone & Mineral Metabolism [address] [place] [address] documented as of this encounter Visit Diagnoses Not on filedocumented in this encounter Additional Health Concerns Assessment Noted Time A fall risk assessment has been complete d for the patient 04/17/2024 11:18 AM EDT A Body Mass Index follow-up plan has been documented for the patient 04/17/2024 11:40 AM EDT documented as of this encounter Care Teams Ict Developer Relationship Specialty Start Date End Date Winston Webster MD [address] [place] [address] PCP - General 04/14/21 02/22/25 Liliana Gar APRN [address] [place] [address] PCP - General 02/23/25 documented as of this encounter
--- OUTSIDE RECORDS SUMMARY | 2025-11-16 16:03 | XMS_ITS | Patient Health Record ---
Author Organization [facility] Address [address] [place] [address] Care Team Providers Care Sample Distributor Name Role Phone Liliana Avalos Primary Care Provider LILIANA Avalos APRN Unavailable Unavailable Winston Webster Unavailable [phone] Amber Lechuga Unavailable [phone] Migration, Provider Unavailable Unavailable Allergies Allergen (clinical drug ingredient) Drug/Non Drug Allergy documented on EMR Reaction Allergy Type Onset Date Status IV DYES (uncoded) Unknown Allergy Ac tive Latex LATEX (uncoded) Unknown Allergy Acti ve angiotensin-converting enzyme inhibitor (FN) ANDREWS Inhibitors Unknown Drug Allergy Acti ve morphine Morphine Unknown Drug Allergy Active Results Component Value Reference Range Notes COMPREHENSIVE METABOLIC PANE L (07254) Reviewed date:10/18/2025 10:40:38 AM Interpretation: Performing Lab:JOSÉ LUIS, [facility] Itkv4805 [facility] HospitalIbbnAG[address] Olivier Albert Notes/Report: NON-FASTING; NON-FASTING; NON-FASTING GLUCOSE [...] 9) Reviewed date:10/18/2025 10:40:38 AM Interpretation: Performing Lab:JOSÉ LUIS, [employer] [facility] P[address]o9635 [employer], SpreakerDfxvDR[address] Olivier Albert Notes/Report: NON-FASTING; NON-FASTING; NON-FASTING WHITE [...] MPV 8.9 7.5-12.5 fL ABSOLUTE NEUTROPHILS 4870 4658-1849 cells/uL ABSOLUTE LYMPHOCYTES 3492 850-9158 cells/uL ABSOLUTE MONOCYTES 410 200-950 cells/uL ABSOLUTE EOSINOPHILS 70 15-500 cells/uL ABSOLUTE BASOPHILS 32 0-200 cells/uL NEUTROPHILS 76.1 LYMPHOCYTES 15.9 MONOCYTES 6.4 EOSINOPHILS 1.1 BASOPHILS 0.5 TSH (899) Reviewed date:10/18/2025 10:40:38 AM Interpretation: Performing Lab:JOSÉ LUIS, [employer] [facility] [address], CurbsyHdlmRP[address] Olivier Albert Notes/Report: NON-FASTING; NON-FASTING; NON-FASTING TSH 0.36 0.40-4.50 mIU/L Echocardiogram Reviewed date:08/30/2025 02:52:28 PM Interpretation: Performing Lab: Notes/Report: Echocardiogram Reviewed date:08/30/2025 02:52:28 PM Interpretation: Performing Lab: Notes/Report: TSH W/REFLEX TO FT4 (74601) Reviewed date:05/19/2025 10:59:23 AM Interpretation: Performing Lab:JOS[facility] LUIS [facility] [id number] [facility] HospitalFtyyVG[address] Olivier Albert Notes/Report: NON-FASTING; NON-FASTING; NON-FASTING NON-FASTING; NON-FASTING; NON-FASTING TSH W/REFLEX TO FT4 0.11 0.40-4.50 mIU/L T4, FREE 1.0 0.8-1.8 ng/dL CBC (INCLUDES DIFF/PLT) (639 9) Reviewed date:05/19/2025 10:59:23 AM Interpretation: Performing Lab:JOSÉ LUIS [facility] Urjt6669 [employer] [facility], United HospitalZzgtEA[address] Olivier Albert Notes/Report: NON-FASTING; NON-FASTING; NON-FASTING WHITE [...] MPV 9.7 7.5-12.5 fL ABSOLUTE NEUTROPHILS 4762 0821-6514 cells/uL ABSOLUTE LYMPHOCYTES 9793 659-3116 cells/uL ABSOLUTE MONOCYTES 531 200-950 cells/uL ABSOLUTE EOSINOPHILS 32 15-500 cells/uL ABSOLUTE BASOPHILS 32 0-200 cells/uL NEUTROPHILS 74.4 LYMPHOCYTES 16.3 MONOCYTES 8.3 EOSINOPHILS 0.5 BASOPHILS 0.5 COMPREHENSIVE METABOLIC PANE L (78148) Reviewed date:05/19/2025 10:59:23 AM Interpretation: Performing Lab:CB, [facility] [address], [facility] CampusSyihRF[address] Olivier Albert Notes/Report: NON-FASTING; NON-FASTING; NON-FASTING GLUCOSE [...] 5 6-29 U/L Reason For Referral Reason Medication Managment with [facility] Diagnosis 1 Brain lesion (G93.9) Diagnosis 2 Urinary incontinence , unspecified type (R32) Diagnosis 3 Psychophysiologic in somnia (F51.04) Diagnosis 4 Chronic kidney disea se, stage 4 (severe) (N18.4) Diagnosis 5 Lupus erythematosus (L93.0) Referral Organization [facility] [place] Referring Provider First Name Liliana Referring Provider Last Name Robbie Referring Provider Speciality Family Pra ctice Referral Priority Routine Reason Needs Federated Petty sportation scheduled for Rheumatology [address] Referral Organization [facility] [place] Referring Provider First Name Winston Referring Provider Last Name Darin Referring Provider Speciality Internal M edicine Referred Provider Specialty Transportati on General Notes Amanda Rae 2024 10:40:55 AM >waiting on form Referral Priority Routine Referral Appointment Date 05/06/2025 Reason wheelchair Diagnosis 1 Weakness (R53.1) Referral Organization [facility] [place] Referring Provider First Name Liliana Referring Provider Last Name Robbie Referring Provider Speciality Family Cristian mckeon Referred Provider Specialty DME General Notes Amanda Rae 2024 01:00:49 PM >Has [employer] O can't do Romy- sent to [facility] Referral Priority Routine Reason Echo at [facility] Diagnosis 1 OSWALD (dyspnea on exer tion) (R06.09) Referral Organization [facility] [place] Referring Provider First Name Amber Referring Provider Last Name Alexandrea Referring Provider Speciality Family Cristian mckeon Referred Organization [facility] Referred Address [address], [place], [place],[address], Referred Provider Specialty Diagnostic R adiology General Notes Amanda Rae 2024 12:15:53 PM >SENT TO [facility] TO SCHEDULED NO AUTH NEEDED FOR CPT 02133 Referral Priority Routine Medications Medication SIG (Take, Route, Frequency, Duration) Notes Start Date End Date Status Albuterol Sulfate (2.5 MG/3ML) 0.083% 3 mL as needed Inhalation twice a day; Duration: 90 days As needed 10/15/2025 Active Dicyclomine HCl 10 MG 1 cap(s) orally twice daily; Duration: 90 days Active Fluticasone Propionate 50 MCG/ACT 1 spray in each nostril Nasally Twice a day; Duration: 90 days Active Sertraline HCl 25 MG 1 tab(s) orally once a day; Duration: 90 days Active Cholecalciferol 50 MCG (2000 UT) 1 capsule Orally Once a day Active Cetirizine HCl 10 MG 1 tablet Orally Once a day; Duration: 90 days 05/18/2025 Active NIFEdipine 10 MG 1 capsule as needed Orally every 8 hrs Active Xanax 0.25 MG 1 tab(s) orally daily; Duration: 30 days 05/17/2025 Active Fiber Choice 1.5 GM 2 tab(s) chewed 2 times a day Active Mirtazapine 15 MG TAKE 1 TABLET EVERY DAY; Duration: 90 Active Acetaminophen 500 MG 2 tab(s) orally every 6 hours Active Sodium Bicarbonate 650 MG TAKE 2 TABLETS THREE TIMES DAILY; Duration: 90 days Active Imitrex 100 MG 1 tab(s) orally once at onset of migraine; Duration: 90 days Active Doxepin HCl 10 MG 2 TABS orally at bedtime as needed Active Mycophenolate Mofetil 500 MG 1 tab(s) orally 2 times a day Active Levothyroxine Sodium 137 MCG TAKE 1 TABLET EVERY MORNING ON AN EMPTY STOMACH; Duration: 90 Active NURTEC ODT 75 MG 1 TAB(S) ORALLY EVERY OTHER DAY; Duration: 30 DAYS *Please review for potential replacement for e-prescription and drug interaction check* Active Hydroxychloroquine Sulfate 300 MG 1 tab(s) orally twice a day; Duration: 30 days Active busPIRone HCl 10 MG TAKE 1 TABLET TWICE DAILY; Duration: 90 Active Immunizations Vaccine Route Administration Date Status Comme nts Covid Moderna Unknown 01/26/2021 Administered Covid Moderna Unknown 02/23/2021 Administered Fluzone High Dose IM Intramuscular 07/22/2018 Administered Fluzone High Dose IM Intramuscular 08/18/2019 Administered Fluzone High Dose IM Intramuscular 09/06/2020 Administered Fluzone High Dose IM Intramuscular 09/19/2021 Administered Fluzone High Dose IM Intramuscular 09/04/2022 Administered Fluzone High Dose IM Intramuscular 10/04/2023 Administered Fluzone High Dose IM Intramuscular 10/15/2025 Administered Influenza (Fluzone)--Medicare only IM Intramuscular 09/20/2015 Administered Influenza (Fluzone)--Medicare only IM Intramuscular 08/23/2016 Administered Influenza (Fluzone)--Medicare only IM Intramuscular 08/13/2017 Administered Pneumovax 23 IM Intramuscular 11/17/2019 Administered Prevnar PCV-13 (Pneumococcal conjugate 13) IM Intramuscular 08/23/2016 Administered Problems Problem Type SNOMED Code ICD Code Onset Dates Problem Status W/U Status Risk Notes Problem Hypocalcemia (9408145) Hypocalcemia (E83.51) Active confirmed Problem Psychophysiologic insomnia (326574445) Psychophysiologic insomnia (F51.04) Active confirmed Problem Chronic pain (36024876) Other chronic pain (G89.29) Active confirmed Problem 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) Active confirmed Problem Irritable bowel syndrome with diarrhea (900676756) Irritable bowel syndrome with diarrhea (K58.0) Active confirmed Problem 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) Active confirmed Problem Osteoporosis (13211096) Other osteoporosis without current pathological fracture (M81.8) Active confirmed Problem Chronic kidney disease stage 4 (365905122) Chronic kidney disease, stage 4 (severe) (N18.4) Active confirmed Problem Disorder of kidney and/or ureter (561302394) Other specified disorders of kidney and ureter (N28.89) Active confirmed Problem Mixed anxiety and depressive disorder (610771614) Depression with anxiety (F41.8) Active confirmed Problem Hypothyroidism (80872215) Hypothyroidism (acquired) (E03.9) Active confirmed Problem Neuropathy (147201857) Neuropathy (G62.9) Active confirmed Problem Essential hypertension (60270970) Essential hypertension (I10) Active confirmed Problem Seasonal allergy (124682227) Seasonal allergies (J30.2) Active confirmed Problem Arthropathy (792322429) Arthritis involving multiple sites (M12.9) Active confirmed Problem Gastroesophageal reflux disease without esophagitis (485451561) Gastroesophageal reflux disease without esophagitis (K21.9) Active confirmed Problem Abnormal mammogram (678561160) Abnormal mammogram (R92.8) Active confirmed Problem Lesion of brain (219512367) Brain lesion (G93.9) Active confirmed Problem Lupus erythematosus (661745624) Lupus erythematosus (L93.0) Active confirmed Problem Dyspnea on exertion (87221311) Dyspnea on exertion (R06.09) Active confirmed Problem Bilateral tinnitus (4869768976184) Tinnitus of both ears (H93.13) Active confirmed Problem Generalized anxiety disorder (21958879) ANGE (generalized anxiety disorder) (F41.1) Active confirmed Problem Chronic kidney disease stage 4 (554164707) Chronic kidney disease, stage IV (severe) (N18.4) Active confirmed Problem Lupus nephritis (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) 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) Active confirmed Problem Moderate recurrent major depression (46555090) Moderate episode of recurrent major depressive disorder (F33.1) Active confirmed Problem Allergic rhinitis caused by pollen (99074343) Seasonal allergic rhinitis due to pollen (J30.1) Active confirmed Problem Chronic anemia (954571460) Chronic anemia (D64.9) Active confirmed Problem Essential tremor (039623861) Tremor, essential (G25.0) Active confirmed Problem Anemia of chronic disease (108157677) Anemia, chronic disease (D63.8) Active confirmed Problem Urinary incontinence (297900549) Urinary incontinence, unspecified type (R32) Active confirmed Problem Seasonal allergic rhinitis (979048676) Acute seasonal allergic rhinitis (J30.2) Active confirmed Problem Osteoarthritis of knee (420824720) Localized osteoarthritis of knees, bilateral (M17.0) Active confirmed Problem Acute systolic heart failure (393120975) Acute systolic congestive heart failure (I50.21) Active confirmed Problem COVID-19 (805382066) COVID-19 (U07.1) Active confirmed Problem Chronic kidney disease stage 5 (454982194) Chronic kidney failure, stage 5 (N18.5) Active confirmed Vital Signs Heart Rate 82 /min 10/15/2025 Temperature 97.9 degrees Fahrenheit 10/15/2025 Oximetry 99 08/04/2025 Blood pressure diastolic 80 mm Hg 10/15/2025 Height 61 in 10/15/2025 Blood pressure systolic 126 mm Hg 10/15/2025 Weight 121 lbs 10/15/2025 BMI 22.86 kg/m2 10/15/2025 Encounters Encounter Location Date Provider Diagnosis [facility] [address] [place] [address] 03/06/2025 Provider Migration [facility] [place] [address] [address] 05/17/2025 Liliana McNees Hypothyroidism (acquired) E03.9 ; [...] anxiety disorder) F41.1 and Essential hypertension I10 [facility] [address] [address] 08/04/2025 Amber Lechuga Dysuria R30.0 ; OSWALD (dyspnea on exertion) R06.09 ; Palpitations R00.2 and Anemia, chronic disease D63.8 [facility] [place] [address] [address] 10/15/2025 Liliana McNees Hypothyroidism (acquired) E03.9 ; Lupus [...] breath R06.02 and Encounter for immunization Z23 [facility] [place] [address] [place] [address] 05/17/2025 Liliana McNees [facility] [place] [address] [facility] [address] [place] [address] 05/17/2025 Liliana McNees [facility] [place] [address] [address] 05/19/2025 Winston Buchananson [facility] [place] [address] [facility] [address] [place] [address] 08/09/2025 Amber Alexandrea Dyspnea on exertion R06.09 [facility] [address] [facility] [address] [place] [address] 08/10/2025 Amber Alexandrea [facility] [place] [address] [facility] [address] [place] [address] 10/15/2025 Liliana McNees [facility] [place] [address] [facility] [address] [place] [address] 10/15/2025 Liliana McNees [facility] [place] [address] [address] 11/15/2025 Liliana McNees Pre-syncope R55 and History of recurrent UTIs [...] provided and will take this later to [facility] lab Start oral antibiotics as noted, renal dose 08/04/2025 OSWALD (dyspnea on exertion) (ICD-10 - R06.09) likely multifactoral and anemia may contribute. EKG with mild sinus tach today and nonspecific changes, reviewed with Dr Webster I did encourage her to go to the ED if these symptoms progress, we will update Echo 08/09/2025 Dyspnea on exertion (ICD-10 - R06.09) 10/15/2025 Hypothyroidism (acquired) (ICD-10 - E03.9) On synthroid. 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 No recent changes. 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 No recent changes. Previously followed by Hospice, remains palliative care 05/17/2025 Arthritis involving multiple sites (ICD-10 - M12.9) At baseline 10/15/2025 Moderate episode of recurrent major depressive disorder (ICD-10 - F33.1) Stable on SSRI. No changes made today 08/04/2025 Anemia, chronic disease (ICD-10 - D63.8) 10/15/2025 Gastroesophageal reflux disease without esophagitis (ICD-10 - K21.9) Well controlled 05/17/2025 Moderate episode of recurrent major depressive disorder (ICD-10 - F33.1) Stable on SSRI. No changes made today 05/17/2025 Gastroesophageal reflux disease without esophagitis (ICD-10 - K21.9) Well controlled 10/15/2025 Irritable bowel syndrome with diarrhea (ICD-10 - K58.0) Stable at baseline on bentyl 10/15/2025 Brain lesion (ICD-10 - G93.9) Declines further imaging or FU at this time. Seen by neuro in the past. 03/06/2025 Recurrent UTI (ICD-10 - N39.0) 05/17/2025 Irritable bowel syndrome with diarrhea (ICD-10 - K58.0) Stable at baseline on bentyl 05/17/2025 Brain lesion (ICD-10 - G93.9) Declines further imaging or FU at this time. Seen by neuro in the past. 10/15/2025 Seasonal allergies (ICD-10 - J30.2) Continue antihistamine and flonase 10/15/2025 ANGE (generalized anxiety disorder) (ICD-10 - F41.1) Well controlled on current regimen 05/17/2025 BMI 22.0-22.9, adult (ICD-10 - Z68.22) BMI is acceptable 05/17/2025 Weakness (ICD-10 - R53.1) Patient is unable to safely ambulate at times within the home with a walker or a cane due to poor exercise tolerance and pain associated with lupus and OA. Needs WC for safe ambulation in and out of the home and for transport to appointments. 10/15/2025 Essential hypertension (ICD-10 - I10) Blood pressure at goal 10/15/2025 Chronic anemia (ICD-10 - D64.9) CBC drawn today 05/17/2025 Seasonal allergies (ICD-10 - J30.2) Reassurance, no acute infection. Supportive care discussed. Add antihistamine 05/17/2025 ANGE (generalized anxiety disorder) (ICD-10 - F41.1) Well controlled CSA updated and placed on chart Edmund report reviewed and is appropriate - discussed ongoing use of controlled medication and safety associated with these medications 10/15/2025 BMI 22.0-22.9, adult (ICD-10 - Z68.22) BMI is stable and acceptable 10/15/2025 Shortness of breath (ICD-10 - R06.02) Trial of albuterol sent. Not sure this will help her SOA, but given h/o tobacco use years ago will trial to see if symptoms improve 05/17/2025 Essential hypertension (ICD-10 - I10) Blood pressure above goal in office today, patient has been at goal at all over appointment and on home log. No changes made today. Will continue to monitor 10/15/2025 Encounter for immunization (ICD-10 - Z23) Immunizations updated today 10/15/2025 Other Plan Of Treatment Pending Test Test Name Order Date N-BUN, Creatinine 10/22/2012 CT Scan : Chest, Without Contrast 2011 Ultrasound : Breast, Right 10/16/2021 Ultrasound : Breast, Right 07/03/2013 Bone Density 08/16/2015 Mammogram : Diagnostic 09/19/2021 DEXA Hip and Spine - Screening 5 MRA : Head 06/26/2024 Cardiolite, Adenosine 03/23/2013 Mammogram : Bilateral 09/06/2020 Mammogram : Bilateral 01/10/2021 Mammogram : Bilateral 08/16/2015 Holter Monitor, 48 hour 11/15/2025 C-CBC 03/24/2020 C-CMP 03/24/2020 C-CMP 02/07/2021 C-TSH 03/24/2020 C-VITAMIN B12 03/24/2020 C-THYROID PROFILE 03/12/2017 C-THYROID PROFILE 04/28/2019 C-URINE CULTURE 03/05/2019 C-VITAMIN D, 25-HYDROXY 03/24/2020 VENIPUNCT, ROUTINE* 03/13/2016 M-Urinalysis and Microscopic 08/04/2025 M-Urinalysis and Microscopic 11/15/2025 M-Urine Culture 11/15/2025 M-Urine Culture 08/04/2025 Culture, Urine 05/16/2022 Culture, Urine 09/04/2022 Future Test Test Name Order Date M-Complete Blood Count Auto Diff 019 M-Comprehensive Metabolic Panel 08/10/20 19 Insurance Providers Payer Name Payer Address Payer Phone Subscriber Number Group Number Insured Name Patient Relationship to Insured Coverage Start Date Coverage End Date [employer] MED[employer]ARE DUAL [address] [address] [place] [address] [phone] [id number] Yesy Chacha Self - patient is the insured Medications [...] colonosocopy 12/20 with tubular adenoma benign-appearing mammogram 3/19 -and aga in normal in October 2021 CHF Surgical History Surgery Date(Month/Year) MERI 1979' Benign lung tumor Right foreram ORIF Bilateral cataract excisions Hemmorhoids 2012 Hospitalization History Reason Date(Month/Year) [facility] for 10 day 06/2022 UTI , blood work 05/2022 UTI 06/2021 ELINA 06/2020 pneumonia 04/2020 dehydration 09/2017 fluid 2009
--- OUTSIDE RECORDS SUMMARY | 2025-11-16 16:03 | XMS_ITS | Encounter Summary ---
Author Organization [facility] Address [address] [place] [address] Care Team Providers Care Manufacturing Clerk Name Role Phone Winston Webster MD Primary Care Provider [phone] Liliana Gar APRN Primary Care Provider [phone] Encounter Details Date Type Department Care Team (Late st Contact Info) Description 06/12/2024 Orders Only External Location [address] [place] [address] Provider, External Social History Tobacco Use Types [...] Description 11/19/2025 9:45 AM EST Office Visit [place] [facility] [address] [place] [address] Yareli Puga DO [address] [place] [address] 03/14/2026 1:20 PM EDT Office Visit [facility] Nephrology, Bone & Mineral Metabolism [address], [address] [place] [id number] documented as of this encounter Procedures Procedure [...] documented as of this encounter Care Teams Manufacturing Clerk Relationship Specialty Start Date End Date Winston Webster MD [address] [place] [address] PCP - General 04/14/21 02/22/25 Liliana Gar APRN [address] [place] [address] PCP - General 02/23/25 documented as of this encounter
--- OUTSIDE RECORDS SUMMARY | 2025-11-16 16:03 | XMS_ITS | Encounter Summary ---
Author Organization [facility] Address [address] [place] [address] Care Team Providers Care Surveillance Sensor Officer Name Role Phone Winston Webster MD Primary Care Provider [phone] Liliana Gar APRN Primary Care Provider [phone] Encounter Details Date Type Department Care Team (Late st Contact Info) Description 06/12/2024 Orders Only External Location [address] [place] [address] Provider, External Social History Tobacco Use Types [...] Description 11/19/2025 9:45 AM EST Office Visit [place] [facility] [address] [place] [address] Yareli Puga DO [address] [place] [address] 03/14/2026 1:20 PM EDT Office Visit [facility] Nephrology, Bone & Mineral Metabolism [address], [address] [place] [address] documented as of this encounter Procedures Procedure [...] documented as of this encounter Care Teams Surveillance Sensor Officer Relationship Specialty Start Date End Date Winston Webster MD [address] [place] [address] PCP - General 04/14/21 02/22/25 Liliana Gar APRN [address] [place] [address] PCP - General 02/23/25 documented as of this encounter
--- OUTSIDE RECORDS SUMMARY | 2025-11-16 16:03 | XMS_ITS | Encounter Summary ---
Author Organization [facility] Address [address] [place] [address] Care Team Providers Care Fire Patroller Name Role Phone Liliana Gar YURIY Primary Care Provider Encounter Details Date Type Department Care Team ([facility] Contact Info) Description 09/23/2025 Telephone [facility] Nephrology, Bone & Mineral Metabolism [address] [facility], [address] [place] [address] Enmanuel Castillo MD [address] [facility] [address] [place] [address] Social History Tobacco Use Types [...] EDT Patient Phone Message Reason for Call: [facility] called to obtain a new diagnosis for the labs the pt did at their facility. They need a new diagnosis to cover the Feratin test ordered 09-01-25 Best contact number and optimal time of day to reach caller: Gogo--[phone] Note: Please do not reply to this message. Follow-up communication and further actions as a result of this message need to be communicated with the patient directly, if the patient is not active onMyChart. If the patient is active on MyChart, they will receive notification of the communication/outcome via [employer]OBAt. documented in this encounter Plan of Treatment Upcoming Encounters Date Type Department Care Team (Late st Contact Info) Description 11/19/2025 9:45 AM EST Office Visit [place] [facility] [address] [place] [address] Yareli Puga, DO [address] [place] [address] 03/14/2026 1:20 PM EDT Office Visit [facility] Nephrology, Bone & Mineral Metabolism [address] [place] [address] documented as of this encounter [...] documented as of this encounter Care Teams Fire Patroller Relationship Specialty Start Date End Date Liliana Gar APRN [address] [place] [address] PCP - General 02/23/25 documented as of this encounter
--- OUTSIDE RECORDS SUMMARY | 2025-11-16 16:03 | XMS_ITS | Encounter Summary ---
Author Organization [facility] Address [address] [place] [address] Care Team Providers Care Airplane Patroller Name Role Phone Liliana Gar YURIY Primary Care Provider [phone] Encounter Details Date Type Department Care Team ([facility] st Contact Info) Description 09/21/2025 Results Follow-Up [facility] Nephrology, Bone & Mineral Metabolism [address] [facility], [address] [place] [address] Dave Galicia MD [address] [phone] Social History Tobacco Use Types Packs/Day Years [...] Description 11/19/2025 9:45 AM EST Office Visit [place] [facility] [address] [place] [address] Antic, Yareli, DO [address] [place] [address] 03/14/2026 1:20 PM EDT Office Visit [facility] Nephrology, Bone & Mineral Metabolism [address] [facility], [address] [place] [address] documented as of this encounter [...] documented as of this encounter Care Teams Airplane Patroller Relationship Specialty Start Date End Date Liliana Gar APRN [address] [facility] [address] [place] [address] PCP - General 02/23/25 documented as of this encounter
--- OUTSIDE RECORDS SUMMARY | 2025-11-16 16:03 | XMS_ITS | Encounter Summary ---
Author Organization [facility] Address [address] [place] [address] Care Team Providers Care Ferryboat Helper Name Role Phone Winston Webster MD Primary Care Provider [phone] Liliana Gar APRN Primary Care Provider [phone] Encounter Details Date Type Department Care Team (Late st Contact Info) Description 06/12/2024 Orders Only External Location [address] [place] [address] Provider, External Social History Tobacco Use Types [...] Visit [place] [facility] [address] [place] [address] Yareli Puga DO [address] [place] [address] 03/14/2026 1:20 PM EDT Office Visit [facility] Nephrology, Bone & Mineral Metabolism [address] [facility] [place] [address] documented as of this encounter [...] documented as of this encounter Care Teams Ferryboat Helper Relationship Specialty Start Date End Date Winston Webster MD [address] [place] [address] PCP - General 04/14/21 02/22/25 Liliana Gar APRN [address] [place] [address] PCP - General 02/23/25 documented as of this encounter
--- OUTSIDE RECORDS SUMMARY | 2025-11-16 16:04 | XMS_ITS | Encounter Summary ---
Author Organization [facility] Address [address] [place] [address] Care Team Providers Care Foam Fabricator Name Role Phone Liliana Gar YURIY Primary Care Provider [phone] Reason for Visit * Reason Comments Med Refill Encounter Details Date Type Department Care Team ([facility] Contact Info) Description 10/21/2025 Refill [facility] Nephrology, Bone & Mineral Metabolism [address] [facility] [address], [address] [place] [address] Enmanuel Castillo MD [address] [facility] [address] [place] [address] Chronic kidney disease, stage 4 (severe) (CMS/HCC); Anemia in other chronic diseases classified elsewhere Social History Tobacco Use Types Packs/Day Years [...] Description 11/19/2025 9:45 AM EST Office Visit [place] [facility] [address] [place] [address] Antic, Yareli, DO [address] [place] [address] 03/14/2026 1:20 PM EDT Office Visit [facility] [employer] [facility] Nephrology, Bone & Mineral Metabolism [address] [facility] [address], [address] [place] [address] documented as of this encounter Visit Diagnoses Diagnosis Chronic kidney disease, stage 4 (severe) (CMS/HCC) Anemia in other chronic diseases classified elsewhere documented in this encounter Additional Health Concerns Assessment Noted Time PHQ-9 Depression Total Score: 18 025 2:21 PM EDT A fall risk assessment has been complete d for the patient 09/13/2025 2:26 PM EDT A Body Mass Index follow-up plan has been documented for the patient 09/16/2025 9:16 AM EDT documented as of this encounter Care Teams Foam Fabricator Relationship Specialty Start Date End Date Liliana Gar APRN [address] [place] [address] PCP - General 02/23/25 documented as of this encounter
--- OUTSIDE RECORDS SUMMARY | 2025-11-16 16:04 | XMS_ITS | Encounter Summary ---
Author Organization [facility] Address [address] [place] [address] Care Team Providers Care Communications Agent Name Role Phone Liliana Gar YURIY Primary Care Provider [phone] Reason for Visit * Reason Comments Med Refill Encounter Details Date Type Department Care Team (Late st Contact Info) Description 10/22/2025 Refill [place] [facility] [address] [place] [address] AnticYareli, DO [address] [place] [address] Systemic lupus erythematosus, organ or [...] Progress Notes - Jen Terrazas, PharmD - 10/22/2025 7:48 AM EST 1 medication(s) has been approved per protocol. documented in this encounter Plan of Treatment Upcoming Encounters Date Type Department Care Team (Late st Contact Info) Description 11/19/2025 9:45 AM EST Office Visit [facility] Medicine Specialties [address] [place] [address] Yareli Puga, DO [address] [place] [address] 03/14/2026 1:20 PM EDT Office Visit [facility] [place] Nephrology, Bone & Mineral Metabolism [address] [place] [address] documented as of this encounter [...] documented as of this encounter Care Teams Communications Agent Relationship Specialty Start Date End Date Liliana Gar APRN [address] [facility] [address] [place] [address] PCP - General 02/23/25 documented as of this encounter
--- OUTSIDE RECORDS SUMMARY | 2025-11-16 16:04 | XMS_ITS | Encounter Summary ---
Author Organization [facility] Address [address] [place] [address] Care Team Providers Care Linux Devops Engineer Name Role Phone Liliana Gar YURIY Primary Care Provider [phone] Encounter Details Date Type Department Care Team (Late st Contact Info) Description 10/11/2025 Refill [place] [facility] [address] [place] [address] Claudy Cramer, [place] [address] Social History Tobacco Use Types Packs/Day Years [...] Telephone Encounter - Claudy Cramer PharmD - 10/11/2025 3:04 PM EST Refill request does not meet protocol. Sending to clinic for review. Additional info: Review and renew if appropriate. documented in this encounter Plan of Treatment Upcoming Encounters Date Type Department Care Team (Late st Contact Info) Description 11/19/2025 9:45 AM EST Office Visit [facility] Medicine Specialties [address] [place] [address] Yareli Puga, DO [address] [place] [address] 03/14/2026 1:20 PM EDT Office Visit [facility] [place] Nephrology, Bone & Mineral Metabolism [address] [facility], [address] [place] [address] documented as of this encounter [...] documented as of this encounter Care Teams Linux Devops Engineer Relationship Specialty Start Date End Date Liliana Gar APRN [address] [facility] [address] [place] [address] PCP - General 02/23/25 documented as of this encounter
--- OUTSIDE RECORDS SUMMARY | 2025-11-16 16:04 | XMS_ITS | Encounter Summary ---
Author Organization [facility] Address [address] [place] [address] Care Team Providers Care Blog Writer Name Role Phone Liliana Gar YURIY Primary Care Provider [phone] Encounter Details Date Type Department Care Team (Latest Contact Info) Description 11/12/2025 Travel Social History Tobacco Use Types Packs/Day [...] Description 11/19/2025 9:45 AM EST Office Visit [place] [facility] [address] [place] [address] Yareli Puga DO [address] [place] [address] 03/14/2026 1:20 PM EDT Office Visit [facility] Nephrology, Bone & Mineral Metabolism [address] [facility], [address] [place] [address] documented as of this encounter [...] documented as of this encounter Care Teams Blog Writer Relationship Specialty Start Date End Date Liliana Gar APRN [address] [facility] [address] [place] [address] PCP - General 02/23/25 documented as of this encounter
--- OUTSIDE RECORDS SUMMARY | 2025-11-16 16:04 | XMS_ITS | Clinical Summary ---
Author Organization [facility] Address [address] [place] [address] Care Team Providers Care Clinical Instructor Name Role Phone Liliana Gar DIRECTOR VALIDATION Primary Care Provider [phone] Allergies Active Allergy Reactions Criticality Noted Date [...] mouth every 4 (four) hours if needed. Active busPIRone (Buspar) 10 MG tablet Take by mouth 2 (two) times a day. Active fluticasone (Flonase) 50 MCG/ACT nasal spray Active mirtazapine (Remeron) 15 MG tablet Active ALPRAZolam (Xanax) 0.25 MG tablet 022 Active dicyclomine (Bentyl) 10 MG capsule Take 1 capsule (10 mg) by mouth 2 (two) times a day. 022 Active Calcium Polycarbophil (FIBER-CAPS PO) Take by mouth. Active Fiber 500 MG capsule Take by mouth. Activ e omeprazole (PriLOSEC) [address] capsule 023 Active ondansetron (Zofran) 4 MG tablet Take by mouth. 023 Active levothyroxine (Synthroid, Levoxyl) 150 MCG tablet 024 Active Imitrex 100 MG tablet Take 1 tablet (100 mg) by mouth 1 (one) time if needed for migraine. 024 Active Rimegepant Sulfate (Nurtec) 75 MG orally disintegrating tablet Take 1 tablet (75 mg) by mouth every other day. 024 Active doxepin (SINEquan) 10 MG capsule Take 1-2 capsules (10-20 mg) by mouth at night if needed for sleep. 180 capsule 3 024 Active sertraline (Zoloft) 25 MG tablet Take 1 tablet (25 mg) by mouth 1 (one) time each day. 90 tablet 3 025 2025 Active sodium bicarbonate 650 MG tablet Take 2 tablets by mouth 2 times a day. 360 tablet 3 025 Active NIFEdipine XL (Procardia XL) 30 MG 24 hr tabletIndications :Benign essential hypertension Take 1 tablet by mouth daily. Do not crush, chew, or split. 90 tablet 3 025 Active mycophenolate (Cellcept) 500 MG tabletIndications :Systemic lupus erythematosus, organ or system involvement unspecified (CMS/HCC) TAKE 1 TABLET TWICE DAILY 180 tablet 3 025 Active cholecalciferol (Vitamin D-3) 50 MCG (2000 UT) capsule TAKE 1 CAPSULE EVERY DAY 90 capsule 3 025 Active levoFLOXacin (Levaquin) 500 MG tabletIndications :Dysuria,Citrobac ter infection,Acute cystitis without hematuria Take 1 tablet by mouth every other day. 4 tablet 025 Active darbepoetin alondra (Aranesp, Albumin Free,) 100 MCG/ML injectionIndicati ons:Chronic kidney disease, stage 4 (severe) (CMS/HCC),Anemia in other chronic diseases classified elsewhere INJECT 100MCG SUBCUTANEOUSLY EVERY 14 DAYS. PROTECT FROM LIGHT 2 mL 025 Active Hydroxychloroquin e Sulfate 300 MG tabletIndications :Systemic lupus erythematosus, organ or system involvement unspecified (CMS/HCC) TAKE 1 TABLET EVERY DAY 30 tablet Active Hydroxychloroquin e Sulfate 300 MG tabletIndications :Systemic lupus erythematosus, organ or system involvement unspecified (CMS/HCC) Take 300 mg by mouth daily. 90 tablet 025 2024 Discontinued darbepoetin alondra (Aranesp, Albumin Free,) 100 MCG/ML injection Inject 1 mL under the skin every 14 days. 2 mL 1 025 2024 Discontinued Active Problems Problem Noted Date Diagnosed [...] Encounters Date Type Department Care Team Description 11/12/2025 Travel 10/22/2025 Refill [facility] [address], [address] [place] [address] Yareli Puga DO Systemic lupus erythematosus, organ or system involvement unspecified ([facility]) 10/21/2025 Refill [facility] Nephrology, Bone & Mineral Metabolism [address], [address] [place] [address] Enmanuel Castillo MD Chronic kidney disease, stage 4 (severe) ([facility]); Anemia in other chronic diseases classified elsewhere 10/11/2025 Refill [facility] [address] [place] [address] Claudy Cramer, PharmD 09/23/2025 Telephone [facility] Nephrology, Bone & Mineral Metabolism [address] [place] [address] Enmanuel Castillo MD 09/21/2025 Results Follow-Up [facility] Nephrology, Bone & Mineral Metabolism [address], [address] [place] [address] Dave Galicia MD 09/13/2025 2:20 PM EDT Office Visit [facility] Nephrology, Bone & Mineral Metabolism [address], [address] [place] [address] Dave Galicia MD Dysuria (Primary Dx); Stage 4 chronic kidney disease ([facility]); 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[facility]); Chronic glomerulonephritis syndrome; Citrobacter infection; Acute cystitis [...] Description 11/19/2025 9:45 AM EST Office Visit [facility] [address], [address] [place] [address] Yareli Puga, DO [address] [place] [address] 03/14/2026 1:20 PM EDT Office Visit [facility], Bone [facility] Mineral Metabolism [address] [address], [address] [place] [address] Health Maintenance Due Date Last Done Comments [facility]-Hepatitis C Screening 1950 [facility]-Medicare Annual Wellness (AWV) 1950 [facility]-Infant/Child/Adol SDOH Screenings 1950 [facility]- SDOH Screenings 1967 [facility]-Adult SDOH Screenings 1967 [facility]-DTaP,Tdap,and Td Vaccines (1 - Tdap) 02/21/1968 [facility]-Zoster Vaccines (1 of 2) 02/21/1968 [id number] Vaccine (3 - Moderna risk series) 03/23/2021 02/23/2021, 01/26/2021 [facility]-RSV Vaccine: 60+ Years or (1 - 1-dose 75+ series) 02/21/2024 [facility]-Bone Density Scan 01/09/2025 01/09/2024 [facility]-Influenza Vaccine (#1) 08/02/202511/24, 10/04/2023, 09/04/2022, Additional history exists [facility]-Depression Screening 09/13/2026 09/13/2025, 09/01 [facility]-Pneumococcal Vaccine: 50+ Years Completed 11/17/2019, 08/23/2016, 09/08/2014 [facility]-Obesity Intervention Completed 025, 05/06/2025, 04/09/2025, Additional history exists HPV Vaccines (No Doses Required) Completed [facility]-HIB Vaccines Aged Out No longer e [...] ORDERABLES Final Re sult Performing Organization Address City/[facility] de Phone Number [facility] [address] [place] [address] * Urine Gomez Panel (09/13/2025 3:25 PM EDT) Extra Sent for Culture 09/13/2025 7:01 PM EDT [facility] Comment:Previously prelim ve rified as Specimen evaluation in progress on 09/13/2025 at 1802 EDT. Urine Urine specimen obtained by clean catch procedure / Unknown Non-blood Collection / Unknown 09/13/2025 3:25 PM EDT 09/13/2025 3:25 PM EDT Enmanuel Castillo MD LAB URINE ORDERABLES Final Re sult Performing Organization Address City/[facility]/ZIP Co de Phone Number [facility] [address] [place] [address] * Urinalysis Microscopic Examination (09/13/2025 3:25 PM EDT) Urine Urine specimen obtained by clean catch procedure / Unknown Non-blood Collection / Unknown 09/13/2025 3:25 PM EDT 09/13/2025 3:25 PM EDT us Enmanuel Castillo MD LAB URINE ORDERABLES Final Re sult [facility] [address] [place] [address] * (ABNORMAL) Urinalysis with reflex microscopic (Culture NOT Included) (09/13/2025 3:25 PM EDT) Color, Urine Yellow LAB URINALYSIS - AUTOMATED METHOD 09/13/2025 6:39 PM EDT [facility] Clarity, Urine Cloudy LAB URINALYSIS - AUTOMATED METHOD 09/13/2025 6:39 PM EDT [facility] Spec [place], Urine 1.020 1.005 - 1.030 LAB URINALYSIS - AUTOMATED METHOD 09/13/2025 6:39 PM EDT [facility] pH, Urine 6.0 5.0 - 8.0 LAB URINALYSIS - AUTOMATED METHOD 09/13/2025 6:39 PM EDT [facility] Protein, Urine 100(A) Negative mg/dL LAB URINALYSIS - AUTOMATED METHOD 09/13/2025 6:39 PM EDT [facility] Glucose, Urine Negative Negative mg/dL LAB URINALYSIS - AUTOMATED METHOD 09/13/2025 6:39 PM EDT [facility] Ketones, Urine Negative Negative mg/dL LAB URINALYSIS - AUTOMATED METHOD 09/13/2025 6:39 PM EDT [facility] Blood, Urine Moderate(A) Negative LAB URINALYSIS - AUTOMATED METHOD 09/13/2025 6:39 PM EDT [facility] Bilirubin, Urine Negative Negative LAB URINALYSIS - AUTOMATED METHOD 09/13/2025 6:39 PM EDT [facility] Urobilinogen, Urine 0.2 0.2 to 1.0 mg/dL LAB URINALYSIS - AUTOMATED METHOD 09/13/2025 6:39 PM EDT [facility] Leukocytes, Urine Large(A) Negative LAB URINALYSIS - AUTOMATED METHOD 09/13/2025 6:39 PM EDT [facility] Nitrite, Urine Positive(A) Negative LAB URINALYSIS - AUTOMATED METHOD 09/13/2025 6:39 PM EDT [facility] RBC, Urine <1 0 to 3 /HPF 09/13/2025 6:39 PM EDT [facility] Comment:This result was prev iously suppressed from the chart. WBC, Urine >50(A) 0 to 5 /HPF 09/13/2025 6:39 PM EDT [facility] Comment:This result was prev iously suppressed from the chart. Squamous Epithelial Cells 0 - 2 0 to 5 /HPF 09/13/2025 6:39 PM EDT [facility] Comment:This result was prev iously suppressed from the chart. Hyaline Casts 0 - 2 0 to 5 /LPF 09/13/2025 6:39 PM EDT [facility] Comment:This result was prev iously suppressed from the chart. Bacteria, Urine Present Negative 09/13/2025 6:39 PM EDT [facility] Comment:This result was prev iously suppressed from the chart. Urine Urine specimen obtained by clean catch procedure / Unknown Non-blood Collection / Unknown 09/13/2025 3:25 PM EDT 09/13/2025 3:25 PM EDT Narrative [facility] - 09/13/2025 6:39 PM EDT Performed by manual method us Enmanuel Castillo MD LAB URINE ORDERABLES Final Re sult [facility] [address] [place] [address] * (ABNORMAL) Urine Culture (09/13/2025 3:25 PM EDT) Culture >=100,000 CFU/mL Citrobacter freundii complex(A) ANDREE 09/16/2025 9:59 AM EDT [facility] Comment: This isolate has been identified using the FDA Approved Asuragen [place] System Edited result: Previously reported as [...] MICROBIOLOGY - GENERAL OR DERABLES Final Result [facility] [address] [place] [address] * (ABNORMAL) Iron & Total Iron Binding Capacity, Plasma (Includes Transferrin) (09/13/2025 3:24 PM EDT) [facility] Iron, Plasma 63 30 - 160 ug/dL 09/13/2025 6:05 PM EDT [facility] Transferrin, Plasma 187(L) 200 - 360 mg/dL 09/13/2025 6:05 PM EDT [facility] Total Iron Binding Capacity, Plasma 234(L) 240 - 450 ug/mL 09/13/2025 6:05 PM EDT [facility] Transferrin Saturation 27 14 - 50 % 09/13/2025 6:05 PM EDT [facility] Blood Venous blood specimen / Unknown Venipuncture / Unknown 09/13/2025 3:24 PM EDT 09/13/2025 3:24 PM EDT us Enmanuel Castillo MD LAB BLOOD ORDERABLES Final Re sult [facility] [address] [place] [address] * (ABNORMAL) CBC W/O Differential (09/13/2025 3:24 PM EDT) WBC Count 6.06 3.70 - 10.30 10*3/uL LAB HEMATOLOGY METHOD 09/13/2025 5:21 PM EDT [facility] RBC Count 3.23(L) 3.90 - 5.20 10*6/uL LAB HEMATOLOGY METHOD 09/13/2025 5:21 PM EDT [facility] HGB 8.9(L) 11.2 - 15.7 g/dL LAB HEMATOLOGY METHOD 09/13/2025 5:21 PM EDT [facility] HCT 30.8(L) 34.0 - 45.0 % LAB HEMATOLOGY METHOD 09/13/2025 5:21 PM EDT [facility] Platelet Count 270 155 - 369 10*3/uL LAB HEMATOLOGY METHOD 09/13/2025 5:21 PM EDT [facility] MCV 95 79 - 98 fL LAB HEMATOLOGY METHOD 09/13/2025 5:21 PM EDT [facility] MCH 27.6 26.0 - 32.0 pg LAB HEMATOLOGY METHOD 09/13/2025 5:21 PM EDT [facility] MCHC 28.9(L) 30.7 - 35.5 g/dL LAB HEMATOLOGY METHOD 09/13/2025 5:21 PM EDT [facility] RDW 15.5(H) 11.5 - 14.5 % LAB HEMATOLOGY METHOD 09/13/2025 5:21 PM EDT [facility] MPV 9.2 8.8 - 12.5 fL LAB HEMATOLOGY METHOD 09/13/2025 5:21 PM EDT [facility] nRBC 0.0 <=0.0 per 100 WBCs LAB HEMATOLOGY METHOD 09/13/2025 5:21 PM EDT [facility] Blood Venous blood specimen / Unknown Venipuncture / Unknown 09/13/2025 3:24 PM EDT 09/13/2025 3:24 PM EDT Enmanuel Castillo MD LAB BLOOD ORDERABLES Final Re sult Performing Organization Address City/[facility]/ZIP Co de Phone Number [facility] [address] [place] [address] * (ABNORMAL) Ferritin (09/13/2025 3:24 PM EDT) Ferritin, Serum 701(H) 13 - 150 ng/mL 09/13/2025 6:12 PM EDT [facility] Blood Venous blood specimen / Unknown Venipuncture / Unknown 09/13/2025 3:24 PM EDT 09/13/2025 3:24 PM EDT Enmanuel Castillo MD LAB BLOOD ORDERABLES Final Re sult Performing Organization Address City/[facility]/ZIP Co de Phone Number [facility] [address] [place] [address] * (ABNORMAL) Renal Function Panel, Plasma (09/13/2025 3:24 PM EDT) Glucose, Plasma 93 74 - 99 mg/dL 09/13/2025 5:53 PM EDT [facility] BUN, Plasma 37(H) 8 - 23 mg/dL 09/13/2025 5:53 PM EDT [facility] Creatinine, Plasma 2.90(H) 0.60 - 1.10 mg/dL 09/13/2025 5:53 PM EDT [facility] BUN/Creatinine Ratio 13 09/13/2025 5:53 PM EDT [facility] Sodium, Plasma 136 136 - 145 mmol/L 09/13/2025 5:53 PM EDT [facility] Potassium, Plasma 4.5 3.6 - 4.9 mmol/L 09/13/2025 5:53 PM EDT [facility] Chloride, Plasma 99 97 - 107 mmol/L 09/13/2025 5:53 PM EDT [facility] CO2, Plasma 22 22 - 29 mmol/L 09/13/2025 5:53 PM EDT [facility] Anion Gap 15 6 - 16 mmol/L 09/13/2025 5:53 PM EDT [facility] Total Calcium, Plasma 8.9 8.9 - 10.2 mg/dL 09/13/2025 5:53 PM EDT [facility] Phosphorus, Plasma 4.5 2.5 - 4.5 mg/dL 09/13/2025 5:53 PM EDT [facility] Albumin, Plasma 4.1 3.5 - 5.2 g/dL 09/13/2025 5:53 PM EDT [facility] eGFRcr 16.3 mL/min/1.7 3m*2 09/13/2025 5:53 PM EDT [facility] Comment:Reported eGFRcr in m L/min/1.73m2 is based the CKD-EPI 2020 equation that does not use a race coefficient. Blood Venous blood specimen / Unknown Venipuncture / Unknown 09/13/2025 3:24 PM EDT 09/13/2025 3:24 PM EDT us Enmanuel Castillo MD LAB BLOOD ORDERABLES Final Re sult [facility] [address] [place] [address] * Dexa Bone Density (01/09/2024 4:11 PM EST) Anatomical Region Laterality Modality L-spine Radiographic Jacqui ging Narrative 01/11/2024 2:27 PM EST [facility] [address] [place] [address] DXA Bone Densitometry Report: [DAY/DATE] BMD test performed using the Shoette DXA System (analysis version: 14.10) manufactured by [employer]. REFERRING PROVIDER: Dr. Castillo, Enmanuel Heller MD [...] Relevant to Health Maintenance Insurance [address] [place], [place] [id number] [place]IC[place] Care Teams Clinical Instructor Relationship Specialty Start Date End Date GarLiliana, DIRECTOR VALIDATION [address] [facility] [address] [id number] PCP - General 02/23/25
== END 2025-11-16 23:59 | disposition home or self-care (01) ==
LOC: RAD 16:00
PROVIDERS: PCP Nurse Practitioner Family; Visit Provider Nurse Practitioner Family
DX: R94.31 Abnormal electrocardiogram [ECG] [EKG] (principal); R55 Syncope and collapse
CPT/HCPCS: 93225; 93226

== ENCOUNTER 2025-11-17 16:05 | Outpatient (CLI) | payer MEDICARE, SELFPAY ==
[2025-11-17 16:10] LABS: Microscopic, Urine URINE MICROSCOPIC (MICROSCOPIC)
--- OUTSIDE RECORDS SUMMARY | 2025-11-17 17:14 | XMS_ITS | Encounter Summary ---
Author Organization [facility] Address [address] [place] [address] Care Team Providers Care Client Representative Name Role Phone Winston Webster MD Primary Care Provider [phone] Liliana Gar APRN Primary Care Provider Reason for Visit * Reason Comments Med Refill Encounter Details Date Type Department Care Team (Late Contact Info) Description 05/04/2022 Refill [facility] [address] [facility] [address] [place] [address] Enmanuel Castillo MD [address] [address] Social History Tobacco Use Types [...] Description 11/19/2025 9:45 AM EST Office Visit [facility] [address] [place] [address] Yareli Puga, DO [address] [place] [address] 03/14/2026 1:20 PM EDT Office Visit [facility] Nephrology, Bone & Mineral Metabolism [address] [facility], [address] [place] [address] documented as of this encounter Visit Diagnoses Not on filedocumented in this encounter Additional Health Concerns Assessment Noted Time A fall risk assessment has been complete d for the patient 11/28/2021 1:17 PM EST documented as of this encounter Care Teams Client Representative Relationship Specialty Start Date End Date Winston Webster MD [address] [place] [address] PCP - General 04/14/21 02/22/25 Liliana Gar, YURIY [address] [place] [address] PCP - General 02/23/25 documented as of this encounter
--- OUTSIDE RECORDS SUMMARY | 2025-11-17 17:14 | XMS_ITS | Encounter Summary ---
Author Organization [facility] Address [address] [place] [address] Care Team Providers Care Migration Specialist Name Role Phone Liliana Gar YURIY Primary Care Provider [phone] Encounter Details Date Type Department Care Team ([facility] st Contact Info) Description 09/21/2025 Results Follow-Up [facility] Nephrology, Bone & Mineral Metabolism [address] [facility], [address] [place] [address] Dave Galicia MD [address] [id number] Social History Tobacco Use Types Packs/Day Years [...] Description 11/19/2025 9:45 AM EST Office Visit [facility] [address] [place] [address] Antic, Yareli, DO [address] [place] [address] 03/14/2026 1:20 PM EDT Office Visit [facility] Mineral Met[facility] [address] [facility] [address], [address] [place] [address] documented as of this encounter [...] documented as of this encounter Care Teams Migration Specialist Relationship Specialty Start Date End Date Liliana Gar APRN [address] [facility] [address] [place] [address] PCP - General 02/23/25 documented as of this encounter
--- OUTSIDE RECORDS SUMMARY | 2025-11-17 17:14 | XMS_ITS | Encounter Summary ---
Author Organization [facility] Address [address] [place] [address] Care Team Providers Care Home Therapy Clinician Name Role Phone Liliana Gar YURIY Primary Care Provider [phone] Encounter Details Date Type Department Care Team ([facility] Contact Info) Description 09/23/2025 Telephone [facility]phrology, Bone & Mineral Metabolism [address] [facility] [address] [facility], [address] [place] [address] Enmanuel Castillo MD [address] [facility] [address] [place] [address] Social History Tobacco Use Types [...] EDT Patient Phone Message Reason for Call: [facility] called to obtain a new diagnosis for the labs the pt did at their facility. They need a new diagnosis to cover the Feratin test ordered 09-01-25 Best contact number and optimal time of day to reach caller: Gogo--[phone] Note: Please do not reply to this message. Follow-up communication and further actions as a result of this message need to be communicated with the patient directly, if the patient is not active onMyChart. If the patient is active on MyChart, they will receive notification of the communication/outcome via In The Chat Communicationst. documented in this encounter Plan of Treatment Upcoming Encounters Date Type Department Care Team (Late st Contact Info) Description 11/19/2025 9:45 AM EST Office Visit [facility] [address] [place] [address] Yareli Puga, DO [address] [place] [address] 03/14/2026 1:20 PM EDT Office Visit [facility] Nephrology, Bone & Mineral Metabolism [address] [place] [address] documented as of this encounter [...] documented as of this encounter Care Teams Home Therapy Clinician Relationship Specialty Start Date End Date Liliana Gar APRN [address] [place] [address] PCP - General 02/23/25 documented as of this encounter
--- OUTSIDE RECORDS SUMMARY | 2025-11-17 17:14 | XMS_ITS | Patient Health Record ---
Author Organization [facility] Address [address] [place] [address] Care Team Providers Care Sheet Turner Name Role Phone Liliana Avalos Primary Care Provider LILIANA Avalos APRN Unavailable Unavailable Winston Webster Unavailable [phone] Amber Lechuga Unavailable [phone] Migration, Provider Unavailable Unavailable Allergies Allergen (clinical drug ingredient) Drug/Non Drug Allergy documented on EMR Reaction Allergy Type Onset Date Status IV DYES (uncoded) Unknown Allergy Ac tive Latex LATEX (uncoded) Unknown Allergy Acti ve angiotensin-converting enzyme inhibitor (FN) ANDREWS Inhibitors Unknown Drug Allergy Acti ve morphine Morphine Unknown Drug Allergy Active Results Component Value Reference Range Notes COMPREHENSIVE METABOLIC PANE L (16871) Reviewed date:10/18/2025 10:40:38 AM Interpretation: Performing Lab:JOSÉ LUIS, [facility] [id number] [facility], [place], [facility] HospitalQqnrXO[address] Olivier Albert Notes/Report: NON-FASTING; NON-FASTING; NON-FASTING GLUCOSE [...] date:10/18/2025 10:40:38 AM Interpretation: Performing Lab:JOSÉ LUIS, [facility] [id number] [employer], XipinCiysPT[address] Olivier Albert Notes/Report: NON-FASTING; NON-FASTING; NON-FASTING WHITE [...] MPV 8.9 7.5-12.5 fL ABSOLUTE NEUTROPHILS 4870 7254-8629 cells/uL ABSOLUTE LYMPHOCYTES 2410 145-1171 cells/uL ABSOLUTE MONOCYTES 410 200-950 cells/uL ABSOLUTE EOSINOPHILS 70 15-500 cells/uL ABSOLUTE BASOPHILS 32 0-200 cells/uL NEUTROPHILS 76.1 LYMPHOCYTES 15.9 MONOCYTES 6.4 EOSINOPHILS 1.1 BASOPHILS 0.5 TSH (899) Reviewed date:10/18/2025 10:40:38 AM Interpretation: Performing Lab:JOSÉ LUIS, [facility] [address], ProformativeTovsCU[address] Olivier Albert Notes/Report: NON-FASTING; NON-FASTING; NON-FASTING TSH 0.36 0.40-4.50 mIU/L Echocardiogram Reviewed date:08/30/2025 02:52:28 PM Interpretation: Performing Lab: Notes/Report: Echocardiogram Reviewed date:08/30/2025 02:52:28 PM Interpretation: Performing Lab: Notes/Report: TSH W/REFLEX TO FT4 (22825) Reviewed date:05/19/2025 10:59:23 AM Interpretation: Performing Lab:JOSÉ LUIS [facility] [id number] [facility]ylteR[facility], [place], [facility] HospitalNrrdCS[address] Olivier Albert Notes/Report: NON-FASTING; NON-FASTING; NON-FASTING NON-FASTING; NON-FASTING; NON-FASTING TSH W/REFLEX TO FT4 0.11 0.40-4.50 mIU/L T4, FREE 1.0 0.8-1.8 ng/dL CBC (INCLUDES DIFF/PLT) (639 9) Reviewed date:05/19/2025 10:59:23 AM Interpretation: Performing Lab:JOSÉ LUIS [facility] [id number] [employer] [facility], [facility] HospitalEbfdCX[address] Olivier Albert Notes/Report: NON-FASTING; NON-FASTING; NON-FASTING WHITE [...] MPV 9.7 7.5-12.5 fL ABSOLUTE NEUTROPHILS 4762 3471-1716 cells/uL ABSOLUTE LYMPHOCYTES 6217 997-9580 cells/uL ABSOLUTE MONOCYTES 531 200-950 cells/uL ABSOLUTE EOSINOPHILS 32 15-500 cells/uL ABSOLUTE BASOPHILS 32 0-200 cells/uL NEUTROPHILS 74.4 LYMPHOCYTES 16.3 MONOCYTES 8.3 EOSINOPHILS 0.5 BASOPHILS 0.5 COMPREHENSIVE METABOLIC PANE L (46779) Reviewed date:05/19/2025 10:59:23 AM Interpretation: Performing Lab:CB, [facility] [address], [facility] HospitalQqffIY[address] Olivier Albert Notes/Report: NON-FASTING; NON-FASTING; NON-FASTING GLUCOSE [...] Reason For Referral Reason Medication Managment with [facility] Diagnosis 1 Brain lesion (G93.9) Diagnosis 2 Urinary incontinence , unspecified type (R32) Diagnosis 3 Psychophysiologic in somnia (F51.04) Diagnosis 4 Chronic kidney disea se, stage 4 (severe) (N18.4) Diagnosis 5 Lupus erythematosus (L93.0) Referral Organization [facility] [place] Referring Provider First Name Liliana Referring Provider Last Name Robbie Referring Provider Speciality Family Pra ctice Referral Priority Routine Reason Needs Federated Petty sportation scheduled for Rheumatology [address] Referral Organization [facility] [place] Referring Provider First Name Winston Referring Provider Last Name Darin Referring Provider Speciality Internal M edicine Referred Provider Specialty Transportati on General Notes Amanda Rae 2024 10:40:55 AM >waiting on form Referral Priority Routine Referral Appointment Date 05/06/2025 Reason wheelchair Diagnosis 1 Weakness (R53.1) Referral Organization [facility] [place] Referring Provider First Name Liliana Referring Provider Last Name Robbie Referring Provider Speciality Family Cristian mckeon Referred Provider Specialty DME General Notes Amanda Rae 2024 01:00:49 PM >Has [employer] O can't do Romy- sent to [facility] Referral Priority Routine Reason Echo at [facility] Diagnosis 1 OSWALD (dyspnea on exer tion) (R06.09) Referral Organization [facility] [place] Referring Provider First Name Amber Referring Provider Last Name Alexandrea Referring Provider Speciality Family Cristian mckeon Referred Organization [facility] Referred Address [address], [place], [place],[address], Referred Provider Specialty Diagnostic R adiology General Notes Amanda Rae 2024 12:15:53 PM >SENT TO [facility] TO SCHEDULED NO AUTH NEEDED FOR CPT 12406 Referral Priority Routine Medications Medication SIG (Take, [...] Status W/U Status Risk Notes Problem Hypocalcemia (7918551) Hypocalcemia (E83.51) Active confirmed Problem Psychophysiologic insomnia (830677312) Psychophysiologic insomnia (F51.04) Active confirmed Problem Chronic pain (21091448) Other chronic pain (G89.29) Active confirmed Problem 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) Active confirmed Problem Irritable bowel syndrome with diarrhea (951790133) Irritable bowel syndrome with diarrhea (K58.0) Active confirmed Problem 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) Active confirmed Problem Osteoporosis (74129146) Other osteoporosis without current pathological fracture (M81.8) Active confirmed Problem Chronic kidney disease stage 4 (145868110) Chronic kidney disease, stage 4 (severe) (N18.4) Active confirmed Problem Disorder of kidney and/or ureter (961835654) Other specified disorders of kidney and ureter (N28.89) Active confirmed Problem Mixed anxiety and depressive disorder (991555555) Depression with anxiety (F41.8) Active confirmed Problem Hypothyroidism (95684897) Hypothyroidism (acquired) (E03.9) Active confirmed Problem Neuropathy (288545845) Neuropathy (G62.9) Active confirmed Problem Essential hypertension (11917832) Essential hypertension (I10) Active confirmed Problem Seasonal allergy (126105798) Seasonal allergies (J30.2) Active confirmed Problem Arthropathy (401347760) Arthritis involving multiple sites (M12.9) Active confirmed Problem Gastroesophageal reflux disease without esophagitis (083643081) Gastroesophageal reflux disease without esophagitis (K21.9) Active confirmed Problem Abnormal mammogram (293852138) Abnormal mammogram (R92.8) Active confirmed Problem Lesion of brain (466893085) Brain lesion (G93.9) Active confirmed Problem Lupus erythematosus (049102763) Lupus erythematosus (L93.0) Active confirmed Problem Dyspnea on exertion (20823162) Dyspnea on exertion (R06.09) Active confirmed Problem Bilateral tinnitus (0157488332779) Tinnitus of both ears (H93.13) Active confirmed Problem Generalized anxiety disorder (40161325) ANGE (generalized anxiety disorder) (F41.1) Active confirmed Problem Chronic kidney disease stage 4 (060552478) Chronic kidney disease, stage IV (severe) (N18.4) Active confirmed Problem Lupus 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) Active confirmed Problem Moderate recurrent major depression (43767193) Moderate episode of recurrent major depressive disorder (F33.1) Active confirmed Problem Allergic rhinitis caused by pollen (12684458) Seasonal allergic rhinitis due to pollen (J30.1) Active confirmed Problem Chronic anemia (057075837) Chronic anemia (D64.9) Active confirmed Problem Essential tremor (765916963) Tremor, essential (G25.0) Active confirmed Problem Anemia of chronic disease (361925530) Anemia, chronic disease (D63.8) Active confirmed Problem Urinary incontinence (539254566) Urinary incontinence, unspecified type (R32) Active confirmed Problem Seasonal allergic rhinitis (875930231) Acute seasonal allergic rhinitis (J30.2) Active confirmed Problem Osteoarthritis of knee (020369953) Localized osteoarthritis of knees, bilateral (M17.0) Active confirmed Problem Acute systolic heart failure (816063127) Acute systolic congestive heart failure (I50.21) Active confirmed Problem COVID-19 (478162240) COVID-19 (U07.1) Active confirmed Problem Chronic kidney disease stage 5 (346960484) Chronic kidney failure, stage 5 (N18.5) Active confirmed Vital Signs Heart Rate 82 /min 10/15/2025 Temperature 97.9 degrees Fahrenheit 10/15/2025 Oximetry 99 08/04/2025 Blood pressure diastolic 80 mm Hg 10/15/2025 Height 61 in 10/15/2025 Blood pressure systolic 126 mm Hg 10/15/2025 Weight 121 lbs 10/15/2025 BMI 22.86 kg/m2 10/15/2025 Encounters Encounter Location Date Provider Diagnosis [facility] [address] [place] [address] 03/06/2025 Provider Migration Recurrent [facility]TI N39.0 [facility] [place] [address] [address] 05/17/2025 Liliana McNees Hypothyroidism (acquired) E03.9 ; [...] anxiety disorder) F41.1 and Essential hypertension I10 [facility] [address] [address] 08/04/2025 Amber Lechuga Dysuria R30.0 ; OSWALD (dyspnea on exertion) R06.09 ; Palpitations R00.2 and Anemia, chronic disease D63.8 [facility] [place] [address] [address] 10/15/2025 Liliana McNees Hypothyroidism (acquired) E03.9 ; [...] breath R06.02 and Encounter for immunization Z23 [facility] [place] [address] [place] [address] 05/17/2025 Liliana McNees [facility] [place] [address] [facility] [address] [place] [address] 05/17/2025 Liliana McNees [facility] [place] [address] [address] 05/19/2025 Winston Buchananson [facility] [place] [address] [facility] [address] [place] [address] 08/09/2025 Amber Alexandrea Dyspnea on exertion R06.09 [facility] [place] [address] [facility] [address] [place] [address] 08/10/2025 Amber Alexandrea [facility] [place] [address] [facility] [address] [place] [address] 10/15/2025 Liliana McNees [facility] [place] [address] [facility] [address] [place] [address] 10/15/2025 Liliana McNees [facility] [place] [address] [address] 11/15/2025 Liliana McNees Pre-syncope R55 and History [...] provided and will take this later to [facility] lab Start oral antibiotics as noted, [...] 03/24/2020 VENIPUNCT, ROUTINE* 03/13/2016 M-Urinalysis and Microscopic 11/15/2025 M-Urinalysis and Microscopic 08/04/2025 M-Urine Culture 11/15/2025 M-Urine Culture 08/04/2025 Culture, Urine 05/16/2022 Culture, Urine 09/04/2022 Future Test Test Name Order Date M-Complete Blood Count Auto Diff 019 M-Comprehensive Metabolic Panel 08/10/20 19 Insurance Providers Payer Name Payer Address Payer Phone Subscriber Number Group Number Insured Name Patient Relationship to Insured Coverage Start Date Coverage End Date [employer] MEDICARE D[place] [address] [address] [place] [address] [id number] Yesy Chacha Self - patient is the [...] excisions Hemmorhoids 2012 Hospitalization History Reason Date(Month/Year) [facility] for 10 day 06/2022 UTI , blood work 05/2022 UTI 06/2021 ELINA 06/2020 pneumonia 04/2020 dehydration 09/2017 fluid 2009
--- OUTSIDE RECORDS SUMMARY | 2025-11-17 17:14 | XMS_ITS | Clinical Summary ---
Author Organization [facility] yste Address [address] [place] [address] Care Team Providers Care Oiler Helper Name Role Phone Unavailable Primary Care Provider [...]
--- OUTSIDE RECORDS SUMMARY | 2025-11-17 17:14 | XMS_ITS | Encounter Summary ---
Author Organization [facility] Address [address] [place] [address] Care Team Providers Care Charge Gang Weigher Name Role Phone Winston Webster MD Primary Care Provider [phone] Liliana Gar APRN Primary Care Provider [phone] Encounter Details Date Type Department Care Team (Late st Contact Info) Description 06/12/2024 Orders Only External Location [address] [place] [address] Provider, External Social History Tobacco Use Types [...] Description 11/19/2025 9:45 AM EST Office Visit [facility] [address] [place] [address] Yareli Puga DO [address] [place] [address] 03/14/2026 1:20 PM EDT Office Visit [facility] Nephrology, Bone & Mineral Metabolism [address] [facility], [address] [place] [address] documented as of this encounter Procedures Procedure [...] documented as of this encounter Care Teams Charge Gang Weigher Relationship Specialty Start Date End Date Winston Webster MD [address] [facility] [address] [address] [place] [address] PCP - General 04/14/21 02/22/25 Liliana Gar APRN [address] [place] [address] PCP - General 02/23/25 documented as of this encounter
--- OUTSIDE RECORDS SUMMARY | 2025-11-17 17:14 | XMS_ITS | Encounter Summary ---
Author Organization [facility] Address [address] [place] [address] Care Team Providers Care Aids Social Worker Name Role Phone Winston Webster MD Primary Care Provider [phone] Liliana Gar APRN Primary Care Provider [phone] Encounter Details Date Type Department Care Team (Late st Contact Info) Description 06/12/2024 Orders Only External Location [address] [place] [address] Provider, External Social History Tobacco Use Types [...] Visit [facility] [address] [place] [address] Yareli Puga DO [address] [place] [address] 03/14/2026 1:20 PM EDT Office Visit [facility] Nephrology, Bone & Mineral Metabolism [address] [facility], [address] [place] [address] documented as of this [...] documented as of this encounter Care Teams Aids Social Worker Relationship Specialty Start Date End Date Winston Webster MD [address] [place] [address] PCP - General 04/14/21 02/22/25 Liliana Gar APRN [address] [place] [address] PCP - General 02/23/25 documented as of this encounter
--- OUTSIDE RECORDS SUMMARY | 2025-11-17 17:14 | XMS_ITS | Encounter Summary ---
Author Organization [facility] Address [address] [place] [address] Care Team Providers Care Learning Disabled Teacher Name Role Phone Liliana Gar YURIY Primary Care Provider [phone] Reason for Referral * Consultation (Routine) - Closed Specialty Diagnoses / Procedures Referred By Gaby presley Referred To Contact Neurosurgery Diagnoses Brain mass Emilee Tejeda MD [address] [facility] [address] [place] [address] Phone: tel: fax: Referral ID Status Reason Start Date Expiration Date V isits Requested Visits Authorized [id number] Closed Specialty Services Required 02/26/2025 08/28/2026 1 1 Encounter Details Date Type Department Care Team (Late st Contact Info) Description 02/26/2025 [facility] [address] [place] [address] Emilee Tejeda MD [address] [place] [address] Brain mass (Primary Dx) Social History [...] Visit [facility] [address] [place] [address] Antic, Yareli, DO [address] [place] [address] 03/14/2026 1:20 PM EDT Office Visit [facility] Nephrology, Bone & Mineral Metabolism [address] [facility], [address] [place] [address] Scheduled Referrals Name Type Priority [...] documented as of this encounter Care Teams Learning Disabled Teacher Relationship Specialty Start Date End Date Liliana Gar APRN [address] [facility] [address] [place] [address] PCP - General 02/23/25 documented as of this encounter
--- OUTSIDE RECORDS SUMMARY | 2025-11-17 17:15 | XMS_ITS | Encounter Summary ---
Author Organization [facility] Address [address] [place] [address] Care Team Providers Care Platen Drier Operator Name Role Phone Winston Webster MD Primary Care Provider [phone] Liliana Gar APRN Primary Care Provider [phone] Encounter Details Date Type Department Care Team (Late st Contact Info) Description 06/12/2024 Orders Only External Location [address] [place] [address] Provider, External Social History Tobacco Use Types [...] Description 11/19/2025 9:45 AM EST Office Visit [facility] [address] [place] [address] Yareli Puga DO [address] [place] [address] 03/14/2026 1:20 PM EDT Office Visit [facility] Nephrology, Bone & Mineral Metabolism [address] [facility], [address] [place] [address] documented as of this encounter Procedures Procedure [...] documented as of this encounter Care Teams Platen Drier Operator Relationship Specialty Start Date End Date Winston Webster MD [address] [facility] [address] [place] [address] PCP - General 04/14/21 02/22/25 Liliana Gar APRN [address] [place] [address] PCP - General 02/23/25 documented as of this encounter
--- OUTSIDE RECORDS SUMMARY | 2025-11-17 17:15 | XMS_ITS | Encounter Summary ---
Author Organization [facility] Address [address] [place] [address] Care Team Providers Care Cancer Registrar Name Role Phone Winston Webster MD Primary Care Provider [phone] Liliana Gar APRN Primary Care Provider [phone] Reason for Visit * Reason Comments Med Refill Encounter Details Date Type Department Care Team ([facility] st Contact Info) Description 05/14/2024 Refill [facility] Nephrology, Bone & Mineral Metabolism [address] [facility], [address] [place] [address] Enmanuel Castillo MD [address] [facility] [address] [place] [address] Social History Tobacco Use Types [...] could the lab orders be sent to [facility] [place] [facility]? Best contact number and optimal time of day to reach caller: Pt [phone] Please call if orders sent so pt will know to go to the lab. Note: Please do not reply to this message. Follow-up communication and further actions as a result of this message need to be communicated with the patient directly, if the patient is not active onMyChart. If the patient is active on MyChart, they will receive notification of the communication/outcome via [employer]. * Telephone Encounter - No Hancock LPN - 05/14/2024 7:23 AM EDT Refilled 04/17/24 #180 tablets for 3 months supply documented in this encounter Plan of Treatment Upcoming Encounters Date Type Department Care Team (Late st Contact Info) Description 11/19/2025 9:45 AM EST Office Visit [facility] [address] [place] [address] Yareli Puga DO [address] [place] [address] 03/14/2026 1:20 PM EDT Office Visit [facility] Nephrology, Bone & Mineral Metabolism [address] [place] [address] documented as of this encounter Visit Diagnoses Not on filedocumented in this encounter Additional Health Concerns Assessment Noted Time A fall risk assessment has been complete d for the patient 04/17/2024 11:18 AM EDT A Body Mass Index follow-up plan has been documented for the patient 04/17/2024 11:40 AM EDT documented as of this encounter Care Teams Cancer Registrar Relationship Specialty Start Date End Date Winston Webster MD [address] [place] [address] PCP - General 04/14/21 02/22/25 Liliana Gar APRN [address] [place] [address] PCP - General 02/23/25 documented as of this encounter
--- OUTSIDE RECORDS SUMMARY | 2025-11-17 17:16 | XMS_ITS | Encounter Summary ---
Author Organization [facility] Address [address] [place] [address] Care Team Providers Care Coronary Clinical Specialist Name Role Phone Liliana Gar YURIY Primary Care Provider [phone] Reason for Visit * Reason Comments Med Refill Encounter Details Date Type Department Care Team ([facility] Contact Info) Description 10/21/2025 Refill [facility], [facility] & Mineral Metabolism [address] [facility], [address] [place] [address] Enmanuel Castillo MD [address] [facility] [address] [place] [address] Chronic kidney disease, stage 4 [...] Description 11/19/2025 9:45 AM EST Office Visit [facility] [address] [place] [address] Antic, Yareli, DO [address] [place] [address] 03/14/2026 1:20 PM EDT Office Visit [facility] Nephrology, Bone & Mineral Metabolism [address] [facility], [address] [place] [address] documented as of this encounter [...] documented as of this encounter Care Teams Coronary Clinical Specialist Relationship Specialty Start Date End Date Liliana Gar APRN [address] [place] [address] PCP - General 02/23/25 documented as of this encounter
--- OUTSIDE RECORDS SUMMARY | 2025-11-17 17:16 | XMS_ITS | Clinical Summary ---
Author Organization [facility] Address [address] [place] [address] Care Team Providers Care Dining Server Name Role Phone Liliana Gar ARCHEOLOGIST Primary Care Provider [phone] Allergies Active Allergy Reactions Criticality Noted Date [...] Care Team Description 11/12/2025 Travel 10/22/2025 Refill [facility] [address], [address] [place] [address] Yareli Puga DO Systemic lupus erythematosus, organ or system involvement unspecified ([facility]) 10/21/2025 Refill [facility] [place] Nephrology, Bone & Mineral Metabolism [address], [address] [place] [address] Enmanuel Castillo MD Chronic kidney disease, stage 4 (severe) ([facility]); Anemia in other chronic diseases classified elsewhere 10/11/2025 Refill [facility] [address] [place] [address] Claudy Cramer, PharmD 09/23/2025 Telephone [facility] [place] Nephrology, Bone & Mineral Metabolism [address] [place] [address] Enmanuel Castillo MD 09/21/2025 Results Follow-Up [facility] [place] Nephrology, Bone & Mineral Metabolism [address], [address] [place] [address] Dave Galicia MD 09/13/2025 2:20 PM EDT Office Visit [facility] [place] Nephrology, Bone & Mineral Metabolism [address], [address] [place] [address] Dave Galicia MD Dysuria (Primary Dx); Stage 4 chronic kidney disease ([facility]); 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[facility]); Chronic glomerulonephritis syndrome; Citrobacter infection; Acute cystitis [...] David Hypertension Father David Breast cancer Mother [place] Diabetes Mother [place] Hypertension Mother [place] Lung cancer Mother [place] Skin cancer Mother [place] Alcohol abuse Other 1 Cancer Other 2 [...] Description 11/19/2025 9:45 AM EST Office Visit [facility] [address] [place] [address] Yareli Puga, DO [address] [place] [address] 03/14/2026 1:20 PM EDT Office Visit [facility]phrology, Bone & Mineral Metabolism [address], [address] [place] [address] Health Maintenance Due Date Last Done Comments [facility]-Hepatitis C Screening 1950 [facility]-Medicare Annual Wellness (AWV) 1950 [facility]-Infant/Child/Adol SDOH Screenings 1950 [facility]- SDOH Screenings 1967 [facility]-Adult SDOH Screenings 1967 [facility]-DTaP,Tdap,and Td Vaccines (1 - Tdap) 02/21/1968 [facility]-Zoster Vaccines (1 of 2) 02/21/1968 [id number] Vaccine (3 - Moderna risk series) 03/23/2021 [...] ORDERABLES Final Re sult Performing Organization Address City/[facility] de Phone Number [facility] [address] [place] [address] * Urine Gomez Panel (09/13/2025 3:25 PM EDT) Extra Sent for Culture 09/13/2025 7:01 PM EDT [facility] Comment:Previously prelim ve rified as Specimen evaluation in progress on 09/13/2025 at 1802 EDT. Urine Urine specimen obtained by clean catch procedure / Unknown Non-blood Collection / Unknown 09/13/2025 3:25 PM EDT 09/13/2025 3:25 PM EDT Enmanuel Castillo MD LAB URINE ORDERABLES Final Re sult Performing Organization Address City/[facility]/ZIP Co de Phone Number [facility] [address] [place] [address] * Urinalysis Microscopic Examination (09/13/2025 3:25 PM EDT) Urine Urine specimen obtained by clean catch procedure / Unknown Non-blood Collection / Unknown 09/13/2025 3:25 PM EDT 09/13/2025 3:25 PM EDT us Enmanuel Castillo MD LAB URINE ORDERABLES Final Re sult [facility] [address] [place] [address] * (ABNORMAL) Urinalysis with reflex microscopic (Culture NOT Included) (09/13/2025 3:25 PM EDT) Color, Urine Yellow LAB URINALYSIS - AUTOMATED METHOD 09/13/2025 6:39 PM EDT [facility] Clarity, Urine Cloudy LAB URINALYSIS - AUTOMATED METHOD 09/13/2025 6:39 PM EDT [facility] Spec [facility], Urine 1.020 1.005 - 1.030 LAB URINALYSIS - AUTOMATED METHOD 09/13/2025 6:39 PM EDT [facility] pH, Urine 6.0 5.0 - 8.0 LAB URINALYSIS - AUTOMATED METHOD 09/13/2025 6:39 PM EDT [facility] Protein, Urine 100(A) Negative mg/dL LAB URINALYSIS - AUTOMATED METHOD 09/13/2025 6:39 PM EDT [facility] Glucose, Urine Negative Negative mg/dL LAB URINALYSIS - AUTOMATED METHOD 09/13/2025 6:39 PM EDT [facility] Ketones, Urine Negative Negative mg/dL LAB URINALYSIS - AUTOMATED METHOD 09/13/2025 6:39 PM EDT [facility] Blood, Urine Moderate(A) Negative LAB URINALYSIS - AUTOMATED METHOD 09/13/2025 6:39 PM EDT [facility] Bilirubin, Urine Negative Negative LAB URINALYSIS - AUTOMATED METHOD 09/13/2025 6:39 PM EDT [facility] Urobilinogen, Urine 0.2 0.2 to 1.0 mg/dL LAB URINALYSIS - AUTOMATED METHOD 09/13/2025 6:39 PM EDT [facility] Leukocytes, Urine Large(A) Negative LAB URINALYSIS - AUTOMATED METHOD 09/13/2025 6:39 PM EDT [facility] Nitrite, Urine Positive(A) Negative LAB URINALYSIS [...] Urine Present Negative 09/13/2025 6:39 PM EDT [facility] Comment:This result was prev iously suppressed from the chart. Urine Urine specimen obtained by clean catch procedure / Unknown Non-blood Collection / Unknown 09/13/2025 3:25 PM EDT 09/13/2025 3:25 PM EDT Narrative [facility] - 09/13/2025 6:39 PM EDT Performed by manual method us Enmanuel Castillo MD LAB URINE ORDERABLES Final Re sult [facility] [address] [place] [address] * (ABNORMAL) Urine Culture (09/13/2025 3:25 PM EDT) Culture >=100,000 CFU/mL Citrobacter freundii complex(A) ANDREE 09/16/2025 9:59 AM EDT [facility] Comment: This isolate has been identified using the FDA Approved inContact [place] System Edited result: Previously reported as [...] MICROBIOLOGY - GENERAL OR DERABLES Final Result [facility] [address] [place] [address] * (ABNORMAL) Iron & Total Iron Binding Capacity, Plasma (Includes Transferrin) (09/13/2025 3:24 PM EDT) [facility] Iron, Plasma 63 30 - 160 ug/dL 09/13/2025 6:05 PM EDT [facility] Transferrin, Plasma 187(L) 200 - 360 mg/dL 09/13/2025 6:05 PM EDT [facility] Total Iron Binding Capacity, Plasma 234(L) 240 - 450 ug/mL 09/13/2025 6:05 PM EDT [facility] Transferrin Saturation 27 14 - 50 % 09/13/2025 6:05 PM EDT [facility] Blood Venous blood specimen / Unknown Venipuncture / Unknown 09/13/2025 3:24 PM EDT 09/13/2025 3:24 PM EDT us Enmanuel Castillo MD LAB BLOOD ORDERABLES Final Re sult [facility] [address] [place] [address] * (ABNORMAL) CBC W/O Differential (09/13/2025 3:24 PM EDT) WBC Count 6.06 3.70 - 10.30 10*3/uL LAB HEMATOLOGY METHOD 09/13/2025 5:21 PM EDT [facility] RBC Count 3.23(L) 3.90 - 5.20 10*6/uL LAB HEMATOLOGY METHOD 09/13/2025 5:21 PM EDT [facility] HGB 8.9(L) 11.2 - 15.7 g/dL LAB HEMATOLOGY METHOD 09/13/2025 5:21 PM EDT [facility] HCT 30.8(L) 34.0 - 45.0 % LAB HEMATOLOGY METHOD 09/13/2025 5:21 PM EDT [facility] Platelet Count 270 155 - 369 10*3/uL LAB HEMATOLOGY METHOD 09/13/2025 5:21 PM EDT [facility] MCV 95 79 - 98 fL LAB HEMATOLOGY METHOD 09/13/2025 5:21 PM EDT [facility] MCH 27.6 26.0 - 32.0 pg LAB HEMATOLOGY METHOD 09/13/2025 5:21 PM EDT [facility] MCHC 28.9(L) 30.7 - 35.5 g/dL LAB HEMATOLOGY METHOD 09/13/2025 5:21 PM EDT [facility] RDW 15.5(H) 11.5 - 14.5 % LAB HEMATOLOGY METHOD 09/13/2025 5:21 PM EDT [facility] MPV 9.2 8.8 - 12.5 fL LAB HEMATOLOGY METHOD 09/13/2025 5:21 PM EDT [facility] nRBC 0.0 <=0.0 per 100 WBCs LAB HEMATOLOGY METHOD 09/13/2025 5:21 PM EDT [facility] Blood Venous blood specimen / Unknown Venipuncture / Unknown 09/13/2025 3:24 PM EDT 09/13/2025 3:24 PM EDT Enmanuel Castillo MD LAB BLOOD ORDERABLES Final Re sult Performing Organization Address City/[facility]/ZIP Co de Phone Number [facility] [address] [place] [address] * (ABNORMAL) Ferritin (09/13/2025 3:24 PM EDT) Ferritin, Serum 701(H) 13 - 150 ng/mL 09/13/2025 6:12 PM EDT [facility] Blood Venous blood specimen / Unknown Venipuncture / Unknown 09/13/2025 3:24 PM EDT 09/13/2025 3:24 PM EDT Enmanuel Castillo MD LAB BLOOD ORDERABLES Final Re sult Performing Organization Address City/[facility]/ZIP Co de Phone Number [facility] [address] [place] [address] * (ABNORMAL) Renal Function Panel, Plasma (09/13/2025 3:24 PM EDT) Glucose, Plasma 93 74 - 99 mg/dL 09/13/2025 5:53 PM EDT [facility] BUN, Plasma 37(H) 8 - 23 mg/dL 09/13/2025 5:53 PM EDT [facility] Creatinine, Plasma 2.90(H) 0.60 - 1.10 mg/dL 09/13/2025 5:53 PM EDT [facility] BUN/Creatinine Ratio 13 09/13/2025 5:53 PM EDT [facility] Sodium, Plasma 136 136 - 145 mmol/L 09/13/2025 5:53 PM EDT [facility] Potassium, Plasma 4.5 3.6 - 4.9 mmol/L 09/13/2025 5:53 PM EDT [facility] Chloride, Plasma 99 97 - 107 mmol/L 09/13/2025 5:53 PM EDT [facility] CO2, Plasma 22 22 - 29 mmol/L 09/13/2025 5:53 PM EDT [facility] Anion Gap 15 6 - 16 mmol/L 09/13/2025 5:53 PM EDT [facility] Total Calcium, Plasma 8.9 8.9 - 10.2 mg/dL 09/13/2025 5:53 PM EDT [facility] Phosphorus, Plasma 4.5 2.5 - 4.5 mg/dL 09/13/2025 5:53 PM EDT [facility] Albumin, Plasma 4.1 3.5 - 5.2 g/dL 09/13/2025 5:53 PM EDT [facility] eGFRcr 16.3 mL/min/1.7 3m*2 09/13/2025 5:53 PM EDT [facility] Comment:Reported eGFRcr in m L/min/1.73m2 is based the CKD-EPI 2020 equation that does not use a race coefficient. Blood Venous blood specimen / Unknown Venipuncture / Unknown 09/13/2025 3:24 PM EDT 09/13/2025 3:24 PM EDT us Enmanuel Castillo MD LAB BLOOD ORDERABLES Final Re sult [facility] [address] [place] [address] * Dexa Bone Density (01/09/2024 4:11 PM EST) Anatomical Region Laterality Modality L-spine Radiographic Jacqui ging Narrative 01/11/2024 2:27 PM EST [facility] [address] [place] [address] DXA Bone Densitometry Report: [DAY/DATE] BMD test performed using the [employer] DXA System (analysis version: 14.10) manufactured by [employer]. REFERRING PROVIDER: Dr. Castillo, Enmanuel Heller MD [...] Relevant to Health Maintenance Insurance [address] [place], [place] [id number] [place] MEDICARE Care Teams Dining Server Relationship Specialty Start Date End Date GarLiliana, ARCHEOLOGIST [address] [facility] [address] [place] [id number] PCP - General 02/23/25
--- OUTSIDE RECORDS SUMMARY | 2025-11-17 17:16 | XMS_ITS | Encounter Summary ---
Author Organization Healthcare Address [address] [place] [address] Care Team Providers Care Levelman Name Role Phone Liliana Gar YURIY Primary Care Provider Encounter Details Date Type Department Care Team (Late st Contact Info) Description 10/11/2025 Refill [facility] [address] [place] [address] Claudy Cramer, [place] [address] Social History Tobacco Use Types Packs/Day Years [...] Description 11/19/2025 9:45 AM EST Office Visit [facility] Medicine Specialties [address] [place] [address] Yareli Puga, DO [address] [place] [address] 03/14/2026 1:20 PM EDT Office Visit [facility]phrology, Bone & Mineral Metabolism [address], [address] [place] [address] documented as of this encounter [...] documented as of this encounter Care Teams Levelman Relationship Specialty Start Date End Date Liliana Gar APRN [address] [facility] [address] [place] [address] PCP - General 02/23/25 documented as of this encounter
--- OUTSIDE RECORDS SUMMARY | 2025-11-17 17:16 | XMS_ITS | Encounter Summary ---
Author Organization [facility] Address [address] [place] [address] Care Team Providers Care Fiberglass Machine Operator Name Role Phone Liliana Gar YURIY Primary Care Provider [phone] Reason for Visit * Reason Comments Med Refill Encounter Details Date Type Department Care Team (Late st Contact Info) Description 10/22/2025 Refill [facility] [address] [place] [address] AnticYareli, DO [address] [place] [address] Systemic lupus erythematosus, organ or [...] Description 11/19/2025 9:45 AM EST Office Visit [facility]ties [address] [place] [address] Yareli Puga, DO [address] [place] [address] 03/14/2026 1:20 PM EDT Office Visit [facility] Mineral Metabolism [address] [place] [address] documented as of this encounter [...] documented as of this encounter Care Teams Fiberglass Machine Operator Relationship Specialty Start Date End Date Liliana Gar APRN [address] [place] [facility] [address] [place] [address] PCP - General 02/23/25 documented as of this encounter
[2025-11-17 18:37] LABS: Bilirubin,Urine Negative (Negative); Color,Urine YELLOW (Yellow); Glucose,Urine (UA) Negative (Negative); Ketones,Urine Negative (Negative); Leukocyte Esterase,Urine 2+ (Negative); PH,Urine 5.5 (5.0-8.5); Protein,Urine 2+ (Negative); Specific Gravity, Urine 1.020 (1.005-1.030); Urobilinogen,Urine 0.2 EU/dl (0.2)
[2025-11-17 19:04] LABS: Bacteria,Urine 4+ /lpf; WBC,Urine TNTC #/hpf (0-3)
== END 2025-11-17 23:59 | disposition home or self-care (01) ==
LOC: LAB 16:07
PROVIDERS: PCP Internal Medicine Adolescent Medicine; Visit Provider Nurse Practitioner Family
DX: Z01.89 Encounter for other specified special examinations (principal); Z87.440 Personal history of urinary (tract) infections
CPT/HCPCS: 81001; 87077; 87086